=== PATIENT | male | born 1955 | race Caucasian/White ===

== ENCOUNTER 2016-05-04 11:23 | Inpatient (IN) | payer MEDICAID ==
[~2016-05-04] VITALS: Ht 170.2 cm; Wt 64.4 kg
[~2016-05-04 11:23] MED LIST: ACET650T10 GT; FAMO20TA8 GT; FERR300L GT; GLUC1VIA IM; HYDR-4076 GT; INSU100V10 SQ; LEVE500T6 GT; LEVO25TA9 GT; PHEN100O4 GT; PROP40TA7 GT; VITA1TAB20 GT
[2016-05-04] MEDS ORDERED: LEVOFLOXACIN 750 MG /D5W 150ML 150 ML IV ONE ×2 (11:27→11:30)
[2016-05-04] MEDS ORDERED: IV NS 0.9% 2,000 ML ONE (11:27)
[2016-05-04] MEDS ORDERED: IV SET PRIMARY PUMP SET 1 EA INFUS.SET MC ONE (11:27)
[2016-05-04] MEDS ORDERED: VANCOMYCIN 1 GM in IV D5W 250 ML IV ONE (11:30)
[2016-05-04] MEDS ORDERED: ACETAMINOPHEN 650 MG/SUPP.RECT RC ONE ×2 (11:30→11:41)
[2016-05-04] MEDS ORDERED: IV NS 0.9% 1,000 ML BAG IV ONE (11:30)
[2016-05-04] MEDS ORDERED: PIPERACILLIN /TAZOBACTAM 3.375 G in IV D5W 50 ML IV ONE (11:30)
[2016-05-04 11:38] VITALS: BP 99/63
[2016-05-04] MEDS ORDERED: OMEP40CA37 GT (11:42)
[2016-05-04] MEDS ORDERED: HYDR-552 GT (11:42)
[2016-05-04] MEDS ORDERED: FOLI0.8T2 GT (11:42)
[2016-05-04] MEDS ORDERED: ONDA4TAB5 GT (11:42)
[2016-05-04] MEDS ORDERED: NUT.237L67 GT (11:43)
[2016-05-04 11:45] LABS: BASOPHILS # (AUTO) 0.9 /CMM (0.0-0.2); BASOPHILS % (AUTO) 4.5 % (0.0-2.0); DIFF TOTAL % 100 %; EOSINOPHILS # (AUTO) 0.2 /CMM (0.0-0.7); EOSINOPHILS % (AUTO) 1.1 % (0.0-6.0); HEMATOCRIT 28 % (39-51); HEMOGLOBIN 9.3 g/dL (13.5-17.5); LYMPHOCYTES # (AUTO) 1.8 /CMM (0.8-4.8); LYMPHOCYTES % (AUTO) 9.1 % (20.0-44.0); MEAN CORPUSCULAR HEMOGLOBIN 29 PG (26.0-33.0); MEAN CORPUSCULAR HGB CONC 33 g/dl (31.0-36.0); MEAN CORPUSCULAR VOLUME 87 fL (80-96); MONOCYTES # (AUTO) 1.7 /CMM (0.1-1.30); MONOCYTES % (AUTO) 8.7 % (2.0-12.0); NEUTROPHILS # (AUTO) 14.8 /CMM (1.8-8.9); NEUTROPHILS % (AUTO) 76.6 % (43.0-81.0); PLATELET COUNT (AUTO) 380 /CMM (150-450); RED BLOOD CELL COUNT(AUTO) 3.25 MIL/uL (4.5-6.0); WHITE BLOOD COUNT (AUTO) 19.4 K/uL (4.3-11.0)
[2016-05-04 11:57] LABS: ANION GAP 20 (5-14); CALCIUM, SERUM 11.9 mg/dL (8.5-10.1); CARBON DIOXIDE 24 mmol/L (21-32); CHLORIDE 105 mmol/L (98-107); CREATININE 3.8 mg/dL (0.6-1.3); GFR 16 mL/min (>60); GLUCOSE 177 mg/dL (74-106); POTASSIUM 4.9 mmol/L (3.5-5.1); SODIUM SERUM 144 mmol/L (136-145); UREA NITROGEN, BLOOD 78 mg/dL (7-18)
[2016-05-04 12:01] LABS: ALANINE AMINOTRANSFERASE 18 U/L (12-78); ALBUMIN 2.3 g/dL (3.4-5.0); ASPARTATE AMINOTRANSFERASE 17 U/L (15-37); BILIRUBIN,DIRECT 0.1 mg/dL (0.0-0.2); BILIRUBIN,TOTAL 0.4 mg/dL (0.2-1.0); INDIRECT BILIRUBIN 0.3 mg/dL (0.0-1.1); TOTAL PROTEIN, SERUM 8.1 g/dL (6.4-8.2)
[2016-05-04 12:01] LABS: ADD UA MICROSCOPIC YES; KETONES,URINE Negative (NEGATIVE); LEUKOCYTE ESTERASE ,URINE Small (NEGATIVE)
[2016-05-04 12:03] LABS: TROPONIN I < 0.017 ng/mL (0.00-0.056)
[2016-05-04 12:04] LABS: INR 1.26 (0.87-1.13); PROTHROMBIN TIME 13.2 SECS (9.5-12.7)
[2016-05-04 12:05] LABS: ADD URINE CULTURE NO; RBC,URINE 0-2 /HPF (0-2)
[2016-05-04 12:13] LABS: LACTIC ACID 2.8 mmol/L (0.4-2.0)
[2016-05-04 12:38] LABS: *LACTIC ACID REFLEX FLAG YES
[2016-05-04 12:40] LABS: EOSINOPHILS % (MANUAL) 1 % (0-4); LYMPHOCYTES % (MANUAL) 17 % (16-48)
[2016-05-04 12:41] LABS: ANISOCYTOSIS 1+; BASOPHILS % (MANUAL) 0 % (0.0-2.0); PLATELET ESTIMATE ADEQUATE
[2016-05-04 14:55] VITALS: BP 126/68
[2016-05-04 16:00] VITALS: BP 126/68
[2016-05-04] MEDS ORDERED: DEXTROSE 50%-WATER 50 ML DISP.SYRIN IV PRN (17:00)
[2016-05-04] MEDS: BLOOD SUGAR DIAGNOSTIC 1 EACH STRIP IN SCH (17:04)
[2016-05-04] MEDS ORDERED: FEE PK DOSING 1 MIN EA MC ONE (17:23)
[2016-05-04] MEDS ORDERED: FIBERSOURCE HN 1,000 ML BOTTLE GT PRN (17:30)
[2016-05-04] MEDS: GLYTROL 1,000 ML BAG GT PRN (17:42)
[2016-05-04 20:00] VITALS: BP 113/72
[2016-05-04] MEDS ORDERED: NEPRO VAN 237 ML CAN GT SCH (20:00)
[2016-05-04] MEDS: LEVETIRACETAM SOL (5 ML) 100 MG/ML UDC GT SCH (20:06)
[2016-05-04] MEDS: PHENYTOIN SUSP UDC 100 MG/4 ML UDC GT SCH (20:06)
[2016-05-04] MEDS: FAMOTIDINE (20 MG) 20 MG TABLET GT SCH (20:08)
[2016-05-04] MEDS: PROPRANOLOL HCL 40 MG TABLET GT SCH (20:08)
[2016-05-04] MEDS: HYDROCODONE/APAP 5/325MG 1 EACH TABLET GT PRN (20:09)
[2016-05-04] MEDS ORDERED: ONDANSETRON 4 MG TAB.RAPDIS GT PRN (20:30)
[2016-05-04] MEDS ORDERED: PIPERACILLIN /TAZOBACTAM 2.25 G in IV D5W 50 ML IV SCH (21:00)
[2016-05-04] MEDS: ACETAMINOPHEN 650 MG/20.3 ML UDC GT PRN (21:36)
[2016-05-04] MEDS: INSULIN DETEMIR 100 UNIT/ML CARTRIDGE SQ SCH (21:44)
[2016-05-04] MEDS ORDERED: SECONDARY IV SET 1 EA INFUS.SET MC ONE (23:42)
[2016-05-04] MEDS: METRONIDAZOLE 500MG/ NS 100ML 500 MG in PREMIX 1 EA IV SCH (23:47)
[2016-05-04] MEDS: MEROPENEM 500 MG in IV NS 0.9% 50 ML IV SCH (23:47)
[2016-05-05] VITALS: BP 109/61
[2016-05-05] MEDS ORDERED: IV NS 0.9% 250 ML IV ONE (03:30)
[2016-05-05 04:00] VITALS: BP 119/73
[2016-05-05] MEDS: METRONIDAZOLE 500MG/ NS 100ML 500 MG in PREMIX 1 EA IV SCH ×3 (04:41→22:04)
[2016-05-05] MEDS: PROPRANOLOL HCL 40 MG TABLET GT SCH ×3 (04:51→22:05)
[2016-05-05] MEDS: BLOOD SUGAR DIAGNOSTIC 1 EACH STRIP IN SCH ×5 (06:15→23:38)
[2016-05-05 07:19] LABS: DIFF TOTAL % 100 %; EOSINOPHILS # (AUTO) 0.3 /CMM (0.0-0.7); HEMATOCRIT 24 % (39-51); HEMOGLOBIN 8.1 g/dL (13.5-17.5); LYMPHOCYTES # (AUTO) 1.7 /CMM (0.8-4.8); LYMPHOCYTES % (AUTO) 11.7 % (20.0-44.0); MEAN CORPUSCULAR HEMOGLOBIN 29 PG (26.0-33.0); MEAN CORPUSCULAR HGB CONC 33 g/dl (31.0-36.0); MEAN CORPUSCULAR VOLUME 87 fL (80-96); MONOCYTES # (AUTO) 1.5 /CMM (0.1-1.30); MONOCYTES % (AUTO) 9.8 % (2.0-12.0); NEUTROPHILS # (AUTO) 11.3 /CMM (1.8-8.9); NEUTROPHILS % (AUTO) 76.5 % (43.0-81.0); PLATELET COUNT (AUTO) 294 /CMM (150-450); RED BLOOD CELL COUNT(AUTO) 2.78 MIL/uL (4.5-6.0); WHITE BLOOD COUNT (AUTO) 14.8 K/uL (4.3-11.0)
[2016-05-05 07:46] LABS: CALCIUM, SERUM 11.3 mg/dL (8.5-10.1); CREATININE 4.4 mg/dL (0.6-1.3); POTASSIUM 4.4 mmol/L (3.5-5.1)
[2016-05-05 08:00] VITALS: BP 161/87
[2016-05-05] MEDS: PHENYTOIN SUSP UDC 100 MG/4 ML UDC GT SCH (08:56)
[2016-05-05] MEDS: PANTOPRAZOLE 40 MG/PACK PACK GT SCH (08:56)
[2016-05-05] MEDS: LEVOTHYROXINE SODIUM 25 MCG TABLET GT SCH (08:56)
[2016-05-05] MEDS: VIT B CMPLX 3/FA/VIT C/BIOTIN 1 TAB TABLET GT SCH (08:56)
[2016-05-05] MEDS: FAMOTIDINE (20 MG) 20 MG TABLET GT SCH (08:56)
[2016-05-05] MEDS: LEVETIRACETAM SOL (5 ML) 100 MG/ML UDC GT SCH ×2 (08:56→22:05)
[2016-05-05] MEDS: MEROPENEM 500 MG in IV NS 0.9% 50 ML IV SCH ×2 (11:28→23:37)
[2016-05-05 14:00] VITALS: BP 98/60
[2016-05-05] MEDS ORDERED: IV NS 0.9% 250 ML BAG IV ONE (15:00)
[2016-05-05] MEDS ORDERED: SECONDARY IV SET 1 EA INFUS.SET MC ONE (15:23)
[2016-05-05] MEDS: HYDROCODONE/APAP 5/325MG 1 EACH TABLET GT PRN (15:32)
[2016-05-05 16:00] VITALS: BP 98/58
[2016-05-05] MEDS ORDERED: IV NS 0.9% 1,000 ML BAG IV ONE (17:00)
[2016-05-05 20:00] VITALS: BP 103/55
[2016-05-05] MEDS: MUPIROCIN OINT 2% 22 GM TUBE SCH (22:04)
[2016-05-05] MEDS: INSULIN DETEMIR 100 UNIT/ML CARTRIDGE SQ SCH (22:06)
[2016-05-05] MEDS: VANCOMYCIN 1 GM in IV D5W 250 ML IV SCH (23:37)
[2016-05-06] VITALS (11 sets, daily range): BP systolic 104–128; BP diastolic 63–73
[2016-05-06] MEDS ORDERED: SECONDARY IV SET 1 EA INFUS.SET MC ONE (01:14)
[2016-05-06] MEDS: HYDROCODONE/APAP 5/325MG 1 EACH TABLET GT PRN (04:05)
[2016-05-06] MEDS: PROPRANOLOL HCL 40 MG TABLET GT SCH ×3 (05:19→21:31)
[2016-05-06] MEDS: METRONIDAZOLE 500MG/ NS 100ML 500 MG in PREMIX 1 EA IV SCH ×3 (05:19→21:30)
[2016-05-06] MEDS: BLOOD SUGAR DIAGNOSTIC 1 EACH STRIP IN SCH ×4 (05:20→23:21)
[2016-05-06] MEDS: GLYTROL 1,000 ML BAG GT PRN (05:20)
[2016-05-06 07:44] LABS: CALCIUM, SERUM 10.9 mg/dL (8.5-10.1); CREATININE 4.6 mg/dL (0.6-1.3); PHOSPHORUS 4.7 mg/dL (2.5-4.9); POTASSIUM 3.7 mmol/L (3.5-5.1)
[2016-05-06 07:54] LABS: BASOPHILS % (AUTO) 0.2 % (0.0-2.0); DIFF TOTAL % 100 %; EOSINOPHILS # (AUTO) 0.3 /CMM (0.0-0.7); EOSINOPHILS % (AUTO) 2.8 % (0.0-6.0); HEMATOCRIT 22 % (39-51); HEMOGLOBIN 7.4 g/dL (13.5-17.5); LYMPHOCYTES # (AUTO) 1.1 /CMM (0.8-4.8); LYMPHOCYTES % (AUTO) 9.7 % (20.0-44.0); MEAN CORPUSCULAR HEMOGLOBIN 29 PG (26.0-33.0); MEAN CORPUSCULAR HGB CONC 33 g/dl (31.0-36.0); MEAN CORPUSCULAR VOLUME 87 fL (80-96); MONOCYTES # (AUTO) 1.1 /CMM (0.1-1.30); MONOCYTES % (AUTO) 9.4 % (2.0-12.0); NEUTROPHILS % (AUTO) 77.9 % (43.0-81.0); PLATELET COUNT (AUTO) 257 /CMM (150-450); RED BLOOD CELL COUNT(AUTO) 2.57 MIL/uL (4.5-6.0); WHITE BLOOD COUNT (AUTO) 11.6 K/uL (4.3-11.0)
[2016-05-06] MEDS: PHENYTOIN SUSP UDC 100 MG/4 ML UDC GT SCH ×3 (09:34→21:30)
[2016-05-06] MEDS: LEVETIRACETAM SOL (5 ML) 100 MG/ML UDC GT SCH ×2 (09:34→21:30)
[2016-05-06] MEDS: LEVOTHYROXINE SODIUM 25 MCG TABLET GT SCH (09:35)
[2016-05-06] MEDS: PANTOPRAZOLE 40 MG/PACK PACK GT SCH (09:35)
[2016-05-06] MEDS: FAMOTIDINE (20 MG) 20 MG TABLET GT SCH (09:35)
[2016-05-06] MEDS: VIT B CMPLX 3/FA/VIT C/BIOTIN 1 TAB TABLET GT SCH (09:35)
[2016-05-06] MEDS: MUPIROCIN OINT 2% 22 GM TUBE SCH ×2 (09:35→21:31)
[2016-05-06] MEDS: MEROPENEM 500 MG in IV NS 0.9% 50 ML IV SCH ×2 (12:29→23:22)
[2016-05-06] MEDS ORDERED: IV NS 0.9% 250 ML IV ONE (20:31)
[2016-05-06] MEDS ORDERED: BLOOD IV SET 1 EA INFUS.SET MC ONE (20:31)
[2016-05-06] MEDS: INSULIN DETEMIR 100 UNIT/ML CARTRIDGE SQ SCH (22:00)
[2016-05-07] VITALS (9 sets, daily range): BP systolic 112–146; BP diastolic 65–85
[2016-05-07] MEDS ORDERED: IV NS 0.9% 250 ML IV ONE (02:46)
[2016-05-07] MEDS: METRONIDAZOLE 500MG/ NS 100ML 500 MG in PREMIX 1 EA IV SCH (04:25)
[2016-05-07] MEDS: PHENYTOIN SUSP UDC 100 MG/4 ML UDC GT SCH ×3 (04:25→20:09)
[2016-05-07] MEDS: PROPRANOLOL HCL 40 MG TABLET GT SCH ×3 (04:27→20:10)
[2016-05-07] MEDS: BLOOD SUGAR DIAGNOSTIC 1 EACH STRIP IN SCH ×4 (05:09→23:19)
[2016-05-07 07:32] LABS: VIT D, 25-HYDROXY 15.2 ng/mL (30.0-100.0)
[2016-05-07 07:32] LABS: BASOPHILS % (AUTO) 0.2 % (0.0-2.0); DIFF TOTAL % 100 %; EOSINOPHILS # (AUTO) 0.4 /CMM (0.0-0.7); EOSINOPHILS % (AUTO) 4.1 % (0.0-6.0); HEMATOCRIT 32 % (39-51); HEMOGLOBIN 10.5 g/dL (13.5-17.5); LYMPHOCYTES # (AUTO) 1.2 /CMM (0.8-4.8); LYMPHOCYTES % (AUTO) 11.2 % (20.0-44.0); MEAN CORPUSCULAR HEMOGLOBIN 29 PG (26.0-33.0); MEAN CORPUSCULAR HGB CONC 33 g/dl (31.0-36.0); MEAN CORPUSCULAR VOLUME 89 fL (80-96); MONOCYTES # (AUTO) 1.2 /CMM (0.1-1.30); MONOCYTES % (AUTO) 11.3 % (2.0-12.0); NEUTROPHILS # (AUTO) 7.8 /CMM (1.8-8.9); NEUTROPHILS % (AUTO) 73.2 % (43.0-81.0); PLATELET COUNT (AUTO) 274 /CMM (150-450); RED BLOOD CELL COUNT(AUTO) 3.58 MIL/uL (4.5-6.0); WHITE BLOOD COUNT (AUTO) 10.7 K/uL (4.3-11.0)
[2016-05-07 07:39] LABS: CALCIUM, SERUM 11.1 mg/dL (8.5-10.1); CREATININE 4.6 mg/dL (0.6-1.3); POTASSIUM 3.9 mmol/L (3.5-5.1)
[2016-05-07 08:41] LABS: PHOSPHORUS 6.1 mg/dL (2.5-4.9)
[2016-05-07] MEDS: FAMOTIDINE (20 MG) 20 MG TABLET GT SCH (08:59)
[2016-05-07] MEDS: PANTOPRAZOLE 40 MG/PACK PACK GT SCH (08:59)
[2016-05-07] MEDS: LEVOTHYROXINE SODIUM 25 MCG TABLET GT SCH (08:59)
[2016-05-07] MEDS: LEVETIRACETAM SOL (5 ML) 100 MG/ML UDC GT SCH ×2 (08:59→20:09)
[2016-05-07] MEDS: VIT B CMPLX 3/FA/VIT C/BIOTIN 1 TAB TABLET GT SCH (08:59)
[2016-05-07] MEDS: MUPIROCIN OINT 2% 22 GM TUBE SCH ×2 (09:02→20:11)
[2016-05-07 10:17] LABS: PTH, INTACT 6 pg/mL (15-65)
[2016-05-07] MEDS: MEROPENEM 500 MG in IV NS 0.9% 50 ML IV SCH ×2 (11:00→23:24)
[2016-05-07] MEDS: VANCOMYCIN 1 GM in IV D5W 250 ML IV SCH (11:21)
[2016-05-07] MEDS: METRONIDAZOLE 500 MG TABLET GT SCH ×2 (13:11→20:09)
[2016-05-07] MEDS ORDERED: PEG 3350/NA SULF,BICARB,CL/KCL 4,000 ML BOTTLE PO ONE (14:00)
[2016-05-07] MEDS: METOCLOPRAMIDE HCL 10 MG/2 ML VIAL IV SCH ×2 (14:24→20:09)
[2016-05-07 15:46] LABS: IRON, SERUM 51 ug/dl (50-175); PERCENT SATURATION 35 % (14-33); TOTAL IRON BINDING CAPACITY 144 ug/dl (250-450)
[2016-05-07] MEDS ORDERED: IV D5/0.45 NACL 1,000 ML IV PRN (16:56)
[2016-05-07] MEDS ORDERED: PAMIDRONATE 60 MG in IV NS 0.9% 500 ML IV ONE (17:30)
[2016-05-07] MEDS ORDERED: SECONDARY IV SET 1 EA INFUS.SET MC ONE (18:35)
[2016-05-07] MEDS: INSULIN DETEMIR 100 UNIT/ML CARTRIDGE SQ SCH (22:00)
[2016-05-08] VITALS (7 sets, daily range): BP systolic 103–149; BP diastolic 55–98
[2016-05-08] MEDS: METOCLOPRAMIDE HCL 10 MG/2 ML VIAL IV SCH ×4 (01:21→22:03)
[2016-05-08] MEDS: METRONIDAZOLE 500 MG TABLET GT SCH ×3 (05:05→22:04)
[2016-05-08] MEDS: PHENYTOIN SUSP UDC 100 MG/4 ML UDC GT SCH ×3 (05:05→22:04)
[2016-05-08] MEDS: BLOOD SUGAR DIAGNOSTIC 1 EACH STRIP IN SCH ×3 (05:06→18:17)
[2016-05-08] MEDS: PROPRANOLOL HCL 40 MG TABLET GT SCH ×3 (05:06→22:02)
[2016-05-08 07:50] LABS: BASOPHILS % (AUTO) 0.1 % (0.0-2.0); DIFF TOTAL % 100 %; EOSINOPHILS # (AUTO) 0.4 /CMM (0.0-0.7); EOSINOPHILS % (AUTO) 3.8 % (0.0-6.0); HEMATOCRIT 27 % (39-51); HEMOGLOBIN 8.8 g/dL (13.5-17.5); LYMPHOCYTES # (AUTO) 1.1 /CMM (0.8-4.8); LYMPHOCYTES % (AUTO) 9.8 % (20.0-44.0); MEAN CORPUSCULAR HEMOGLOBIN 29 PG (26.0-33.0); MEAN CORPUSCULAR HGB CONC 33 g/dl (31.0-36.0); MEAN CORPUSCULAR VOLUME 89 fL (80-96); MONOCYTES # (AUTO) 1.4 /CMM (0.1-1.30); MONOCYTES % (AUTO) 12.3 % (2.0-12.0); NEUTROPHILS # (AUTO) 8.4 /CMM (1.8-8.9); PLATELET COUNT (AUTO) 239 /CMM (150-450); WHITE BLOOD COUNT (AUTO) 11.4 K/uL (4.3-11.0)
[2016-05-08 07:55] LABS: CALCIUM, SERUM 10.2 mg/dL (8.5-10.1); CREATININE 4.1 mg/dL (0.6-1.3)
[2016-05-08] MEDS: VIT B CMPLX 3/FA/VIT C/BIOTIN 1 TAB TABLET GT SCH (09:23)
[2016-05-08] MEDS: LEVOTHYROXINE SODIUM 25 MCG TABLET GT SCH (09:23)
[2016-05-08] MEDS: LEVETIRACETAM SOL (5 ML) 100 MG/ML UDC GT SCH ×2 (09:23→22:04)
[2016-05-08] MEDS: PANTOPRAZOLE 40 MG/PACK PACK GT SCH (09:23)
[2016-05-08] MEDS: FAMOTIDINE (20 MG) 20 MG TABLET GT SCH (09:23)
[2016-05-08] MEDS: MUPIROCIN OINT 2% 22 GM TUBE SCH ×2 (09:24→22:40)
[2016-05-08 11:15] LABS: HEPATITIS C VIRUS AB <0.1 s/co ratio (0.0-0.9)
[2016-05-08] MEDS: MEROPENEM 500 MG in IV NS 0.9% 50 ML IV SCH ×2 (11:32→22:01)
[2016-05-08] MEDS: HYDROGEL DRESSING 90 GM TUBE TP SCH (11:32)
[2016-05-08] MEDS: ACETAMINOPHEN 650 MG/20.3 ML UDC GT PRN (13:48)
[2016-05-08] MEDS: INSULIN DETEMIR 100 UNIT/ML CARTRIDGE SQ SCH (22:00)
[2016-05-08] MEDS: VANCOMYCIN 1 GM in IV D5W 250 ML IV SCH (23:40)
[2016-05-09] VITALS: BP 150/73
[2016-05-09 04:01] VITALS: BP 124/63
[2016-05-09] MEDS: BLOOD SUGAR DIAGNOSTIC 1 EACH STRIP IN SCH ×3 (06:00→16:42)
[2016-05-09] MEDS: PHENYTOIN SUSP UDC 100 MG/4 ML UDC GT SCH ×3 (06:08→21:47)
[2016-05-09] MEDS: METRONIDAZOLE 500 MG TABLET GT SCH ×2 (06:08→13:00)
[2016-05-09] MEDS: PROPRANOLOL HCL 40 MG TABLET GT SCH ×3 (06:09→21:48)
[2016-05-09] MEDS: METOCLOPRAMIDE HCL 10 MG/2 ML VIAL IV SCH ×3 (07:30→20:25)
[2016-05-09 08:00] LABS: BASOPHILS % (AUTO) 0.2 % (0.0-2.0); DIFF TOTAL % 100 %; EOSINOPHILS # (AUTO) 0.3 /CMM (0.0-0.7); HEMATOCRIT 32 % (39-51); HEMOGLOBIN 10.8 g/dL (13.5-17.5); LYMPHOCYTES # (AUTO) 1.2 /CMM (0.8-4.8); LYMPHOCYTES % (AUTO) 8.9 % (20.0-44.0); MEAN CORPUSCULAR HEMOGLOBIN 30 PG (26.0-33.0); MEAN CORPUSCULAR HGB CONC 34 g/dl (31.0-36.0); MEAN CORPUSCULAR VOLUME 88 fL (80-96); MONOCYTES # (AUTO) 2.1 /CMM (0.1-1.30); MONOCYTES % (AUTO) 15.5 % (2.0-12.0); NEUTROPHILS % (AUTO) 73.4 % (43.0-81.0); PLATELET COUNT (AUTO) 239 /CMM (150-450); RED BLOOD CELL COUNT(AUTO) 3.64 MIL/uL (4.5-6.0); WHITE BLOOD COUNT (AUTO) 13.6 K/uL (4.3-11.0)
[2016-05-09 08:09] LABS: CALCIUM, SERUM 10.2 mg/dL (8.5-10.1); CREATININE 4.2 mg/dL (0.6-1.3); PHOSPHORUS 4.4 mg/dL (2.5-4.9); POTASSIUM 4.4 mmol/L (3.5-5.1)
[2016-05-09] MEDS: HYDROGEL DRESSING 90 GM TUBE TP SCH (09:00)
[2016-05-09] MEDS: VIT B CMPLX 3/FA/VIT C/BIOTIN 1 TAB TABLET GT SCH (09:00)
[2016-05-09] MEDS: LEVOTHYROXINE SODIUM 25 MCG TABLET GT SCH (09:00)
[2016-05-09] MEDS: PANTOPRAZOLE 40 MG/PACK PACK GT SCH (09:00)
[2016-05-09] MEDS: FAMOTIDINE (20 MG) 20 MG TABLET GT SCH (09:00)
[2016-05-09] MEDS: LEVETIRACETAM SOL (5 ML) 100 MG/ML UDC GT SCH ×2 (09:00→21:47)
[2016-05-09] MEDS: MUPIROCIN OINT 2% 22 GM TUBE SCH ×2 (09:00→21:47)
[2016-05-09] MEDS: MEROPENEM 500 MG in IV NS 0.9% 50 ML IV SCH ×2 (10:59→22:48)
[2016-05-09 18:12] VITALS: BP 107/66
[2016-05-09] MEDS: MICAFUNGIN SODIUM 100 MG in IV NS 0.9% 100 ML IV SCH (19:33)
[2016-05-09 20:00] VITALS: BP 112/62
[2016-05-09] MEDS: INSULIN DETEMIR 100 UNIT/ML CARTRIDGE SQ SCH (21:58)
[2016-05-10] VITALS (9 sets, daily range): BP systolic 116–152; BP diastolic 66–88
[2016-05-10] MEDS: METOCLOPRAMIDE HCL 10 MG/2 ML VIAL IV SCH ×4 (01:46→19:43)
[2016-05-10] MEDS: PHENYTOIN SUSP UDC 100 MG/4 ML UDC GT SCH ×3 (05:33→21:33)
[2016-05-10] MEDS: PROPRANOLOL HCL 40 MG TABLET GT SCH ×3 (05:34→21:33)
[2016-05-10] MEDS: BLOOD SUGAR DIAGNOSTIC 1 EACH STRIP IN SCH ×5 (05:35→23:53)
[2016-05-10 06:08] LABS: BASOPHILS % (AUTO) 0.2 % (0.0-2.0); DIFF TOTAL % 100 %; EOSINOPHILS # (AUTO) 0.3 /CMM (0.0-0.7); HEMATOCRIT 34 % (39-51); HEMOGLOBIN 11.4 g/dL (13.5-17.5); LYMPHOCYTES # (AUTO) 1.3 /CMM (0.8-4.8); LYMPHOCYTES % (AUTO) 12.2 % (20.0-44.0); MEAN CORPUSCULAR HEMOGLOBIN 29 PG (26.0-33.0); MEAN CORPUSCULAR HGB CONC 33 g/dl (31.0-36.0); MEAN CORPUSCULAR VOLUME 89 fL (80-96); MONOCYTES # (AUTO) 1.2 /CMM (0.1-1.30); MONOCYTES % (AUTO) 11.3 % (2.0-12.0); NEUTROPHILS # (AUTO) 7.9 /CMM (1.8-8.9); NEUTROPHILS % (AUTO) 73.3 % (43.0-81.0); PLATELET COUNT (AUTO) 243 /CMM (150-450); RED BLOOD CELL COUNT(AUTO) 3.87 MIL/uL (4.5-6.0); WHITE BLOOD COUNT (AUTO) 10.8 K/uL (4.3-11.0)
[2016-05-10 06:19] LABS: ALBUMIN 2.2 g/dL (3.4-5.0); BILIRUBIN,TOTAL 0.6 mg/dL (0.2-1.0); CALCIUM, SERUM 10.2 mg/dL (8.5-10.1); CREATININE 4.3 mg/dL (0.6-1.3); PHOSPHORUS 4.6 mg/dL (2.5-4.9); POTASSIUM 4.1 mmol/L (3.5-5.1); TOTAL PROTEIN, SERUM 7.5 g/dL (6.4-8.2)
[2016-05-10] MEDS: VIT B CMPLX 3/FA/VIT C/BIOTIN 1 TAB TABLET GT SCH (09:03)
[2016-05-10] MEDS: FAMOTIDINE (20 MG) 20 MG TABLET GT SCH (09:03)
[2016-05-10] MEDS: PANTOPRAZOLE 40 MG/PACK PACK GT SCH (09:03)
[2016-05-10] MEDS: LEVOTHYROXINE SODIUM 25 MCG TABLET GT SCH (09:03)
[2016-05-10] MEDS: LEVETIRACETAM SOL (5 ML) 100 MG/ML UDC GT SCH ×2 (09:03→21:33)
[2016-05-10] MEDS: MUPIROCIN OINT 2% 22 GM TUBE SCH ×2 (09:04→21:39)
[2016-05-10] MEDS: VANCOMYCIN 1 GM in IV D5W 250 ML IV SCH (11:00)
[2016-05-10] MEDS: MEROPENEM 500 MG in IV NS 0.9% 50 ML IV SCH ×2 (11:20→22:41)
[2016-05-10] MEDS: HYDROGEL DRESSING 90 GM TUBE TP SCH (11:21)
[2016-05-10] MEDS: INSULIN REGULAR, HUMAN 100 UNIT/ML 3 ML VIAL SQ PRN ×3 (12:18→23:55)
[2016-05-10] MEDS: Sodium Bicarbonate 50 MEQ in IV D5/0.45 NACL 1,000 ML IV PRN ×2 (13:49→22:39)
[2016-05-10] MEDS: MICAFUNGIN SODIUM 100 MG in IV NS 0.9% 100 ML IV SCH (17:07)
[2016-05-10] MEDS: GLYTROL 1,000 ML BAG GT PRN (17:21)
[2016-05-10] MEDS: INSULIN DETEMIR 100 UNIT/ML CARTRIDGE SQ SCH (21:39)
[2016-05-10] MEDS ORDERED: SODIUM BICARBONATE SYR 50 MEQ/50 ML DISP.SYRIN ONE (22:17)
[2016-05-10] MEDS ORDERED: IV D5/0.45 NACL 1,000 ML IV ONE (22:18)
[2016-05-10] MEDS ORDERED: SECONDARY IV SET 1 EA INFUS.SET MC ONE (22:42)
[2016-05-11] VITALS: BP 122/68
[2016-05-11] MEDS: METOCLOPRAMIDE HCL 10 MG/2 ML VIAL IV SCH ×4 (02:21→21:07)
[2016-05-11 04:00] VITALS: BP 131/59
[2016-05-11] MEDS: BLOOD SUGAR DIAGNOSTIC 1 EACH STRIP IN SCH ×4 (05:39→23:22)
[2016-05-11] MEDS: INSULIN REGULAR, HUMAN 100 UNIT/ML 3 ML VIAL SQ PRN ×2 (05:47→23:23)
[2016-05-11] MEDS: PROPRANOLOL HCL 40 MG TABLET GT SCH ×3 (05:48→21:08)
[2016-05-11] MEDS: PHENYTOIN SUSP UDC 100 MG/4 ML UDC GT SCH ×3 (05:48→21:07)
[2016-05-11 07:07] LABS: BASOPHILS % (AUTO) 0.1 % (0.0-2.0); DIFF TOTAL % 100 %; EOSINOPHILS # (AUTO) 0.4 /CMM (0.0-0.7); EOSINOPHILS % (AUTO) 3.3 % (0.0-6.0); HEMATOCRIT 29 % (39-51); HEMOGLOBIN 9.7 g/dL (13.5-17.5); LYMPHOCYTES # (AUTO) 1.4 /CMM (0.8-4.8); LYMPHOCYTES % (AUTO) 13.4 % (20.0-44.0); MEAN CORPUSCULAR HEMOGLOBIN 30 PG (26.0-33.0); MEAN CORPUSCULAR HGB CONC 34 g/dl (31.0-36.0); MEAN CORPUSCULAR VOLUME 88 fL (80-96); MONOCYTES # (AUTO) 1.3 /CMM (0.1-1.30); MONOCYTES % (AUTO) 11.8 % (2.0-12.0); NEUTROPHILS # (AUTO) 7.6 /CMM (1.8-8.9); NEUTROPHILS % (AUTO) 71.4 % (43.0-81.0); PLATELET COUNT (AUTO) 241 /CMM (150-450); RED BLOOD CELL COUNT(AUTO) 3.29 MIL/uL (4.5-6.0); WHITE BLOOD COUNT (AUTO) 10.6 K/uL (4.3-11.0)
[2016-05-11 07:25] LABS: CREATININE 4.1 mg/dL (0.6-1.3); PHOSPHORUS 4.1 mg/dL (2.5-4.9); POTASSIUM 3.5 mmol/L (3.5-5.1)
[2016-05-11 08:00] VITALS: BP 129/81
[2016-05-11] MEDS: PANTOPRAZOLE 40 MG/PACK PACK GT SCH (08:28)
[2016-05-11] MEDS: LEVOTHYROXINE SODIUM 25 MCG TABLET GT SCH (08:28)
[2016-05-11] MEDS: VIT B CMPLX 3/FA/VIT C/BIOTIN 1 TAB TABLET GT SCH (08:28)
[2016-05-11] MEDS: LEVETIRACETAM SOL (5 ML) 100 MG/ML UDC GT SCH ×2 (08:28→21:08)
[2016-05-11] MEDS: FAMOTIDINE (20 MG) 20 MG TABLET GT SCH (08:28)
[2016-05-11] MEDS: MUPIROCIN OINT 2% 22 GM TUBE SCH ×2 (08:29→21:13)
[2016-05-11] MEDS: HYDROGEL DRESSING 90 GM TUBE TP SCH (08:29)
[2016-05-11] MEDS: Sodium Bicarbonate 50 MEQ in IV D5/0.45 NACL 1,000 ML IV PRN ×2 (09:08→19:59)
[2016-05-11] MEDS: MEROPENEM 500 MG in IV NS 0.9% 50 ML IV SCH ×2 (11:11→23:20)
[2016-05-11 12:00] VITALS: BP 123/75
[2016-05-11 16:00] VITALS: BP 123/59
[2016-05-11] MEDS: MICAFUNGIN SODIUM 100 MG in IV NS 0.9% 100 ML IV SCH (17:02)
[2016-05-11 20:00] VITALS: BP 149/75
[2016-05-11] MEDS: INSULIN DETEMIR 100 UNIT/ML CARTRIDGE SQ SCH (21:14)
[2016-05-12] VITALS: BP 138/75
[2016-05-12] MEDS: METOCLOPRAMIDE HCL 10 MG/2 ML VIAL IV SCH ×4 (00:32→18:32)
[2016-05-12 04:00] VITALS: BP 151/75
[2016-05-12] MEDS: BLOOD SUGAR DIAGNOSTIC 1 EACH STRIP IN SCH ×4 (05:04→23:52)
[2016-05-12] MEDS: PHENYTOIN SUSP UDC 100 MG/4 ML UDC GT SCH ×3 (05:04→20:38)
[2016-05-12] MEDS: PROPRANOLOL HCL 40 MG TABLET GT SCH ×3 (05:04→20:38)
[2016-05-12] MEDS: Sodium Bicarbonate 50 MEQ in IV D5/0.45 NACL 1,000 ML IV PRN ×2 (05:09→14:47)
[2016-05-12 07:00] LABS: CALCIUM, SERUM 8.3 mg/dL (8.5-10.1); CREATININE 3.7 mg/dL (0.6-1.3); POTASSIUM 3.5 mmol/L (3.5-5.1)
[2016-05-12] MEDS ORDERED: IV SET PRIMARY PUMP SET 1 EA INFUS.SET MC ONE (07:59)
[2016-05-12 08:00] VITALS: BP 134/74
[2016-05-12] MEDS: VIT B CMPLX 3/FA/VIT C/BIOTIN 1 TAB TABLET GT SCH (08:13)
[2016-05-12] MEDS: LEVETIRACETAM SOL (5 ML) 100 MG/ML UDC GT SCH ×2 (08:13→20:38)
[2016-05-12] MEDS: FAMOTIDINE (20 MG) 20 MG TABLET GT SCH (08:14)
[2016-05-12] MEDS: PANTOPRAZOLE 40 MG/PACK PACK GT SCH (08:14)
[2016-05-12] MEDS: HYDROGEL DRESSING 90 GM TUBE TP SCH (08:14)
[2016-05-12] MEDS: LEVOTHYROXINE SODIUM 25 MCG TABLET GT SCH (08:14)
[2016-05-12] MEDS: MUPIROCIN OINT 2% 22 GM TUBE SCH ×2 (08:14→20:39)
[2016-05-12] MEDS: MEROPENEM 500 MG in IV NS 0.9% 50 ML IV SCH ×2 (10:06→23:47)
[2016-05-12] MEDS: GLYTROL 1,000 ML BAG GT PRN (10:12)
[2016-05-12] MEDS ORDERED: SECONDARY IV SET 1 EA INFUS.SET MC ONE ×2 (11:52→16:37)
[2016-05-12] MEDS: VANCOMYCIN 0.75 GM in IV D5W 250 ML IV SCH ×2 (11:57→23:47)
[2016-05-12 12:00] VITALS: BP 126/71
[2016-05-12 16:00] VITALS: BP 138/78
[2016-05-12] MEDS: MICAFUNGIN SODIUM 100 MG in IV NS 0.9% 100 ML IV SCH (16:39)
[2016-05-12] MEDS ORDERED: IV D5W 1,000 ML IV PRN (17:10)
[2016-05-12 20:00] VITALS: BP 132/84
[2016-05-12] MEDS: INSULIN DETEMIR 100 UNIT/ML CARTRIDGE SQ SCH (23:54)
[2016-05-13] VITALS: BP 142/78
[2016-05-13] MEDS: METOCLOPRAMIDE HCL 10 MG/2 ML VIAL IV SCH ×4 (01:30→20:21)
[2016-05-13 04:00] VITALS: BP 131/70
[2016-05-13] MEDS: BLOOD SUGAR DIAGNOSTIC 1 EACH STRIP IN SCH ×4 (06:00→23:21)
[2016-05-13] MEDS: PHENYTOIN SUSP UDC 100 MG/4 ML UDC GT SCH ×3 (06:04→20:22)
[2016-05-13] MEDS: PROPRANOLOL HCL 40 MG TABLET GT SCH ×3 (06:04→20:23)
[2016-05-13 07:28] LABS: CALCIUM, SERUM 7.7 mg/dL (8.5-10.1); CREATININE 3.3 mg/dL (0.6-1.3); POTASSIUM 3.2 mmol/L (3.5-5.1)
[2016-05-13 08:00] VITALS: BP 134/78
[2016-05-13] MEDS: PANTOPRAZOLE 40 MG/PACK PACK GT SCH (08:41)
[2016-05-13] MEDS: LEVETIRACETAM SOL (5 ML) 100 MG/ML UDC GT SCH ×2 (08:41→20:22)
[2016-05-13] MEDS: LEVOTHYROXINE SODIUM 25 MCG TABLET GT SCH (08:42)
[2016-05-13] MEDS: VIT B CMPLX 3/FA/VIT C/BIOTIN 1 TAB TABLET GT SCH (08:43)
[2016-05-13] MEDS: FAMOTIDINE (20 MG) 20 MG TABLET GT SCH (08:43)
[2016-05-13] MEDS: HYDROGEL DRESSING 90 GM TUBE TP SCH (08:45)
[2016-05-13] MEDS: MUPIROCIN OINT 2% 22 GM TUBE SCH ×2 (08:45→20:25)
[2016-05-13] MEDS: MEROPENEM 500 MG in IV NS 0.9% 50 ML IV SCH ×2 (11:16→23:20)
[2016-05-13 12:00] VITALS: BP 134/78
[2016-05-13] MEDS: Potassium Chloride 40 MEQ in IV D5W 1,000 ML IV PRN (13:03)
[2016-05-13 16:00] VITALS: BP 126/81
[2016-05-13] MEDS: MICAFUNGIN SODIUM 100 MG in IV NS 0.9% 100 ML IV SCH (17:29)
[2016-05-13 20:00] VITALS: BP 145/78
[2016-05-13] MEDS: INSULIN DETEMIR 100 UNIT/ML CARTRIDGE SQ SCH (22:00)
[2016-05-13] MEDS ORDERED: SECONDARY IV SET 1 EA INFUS.SET MC ONE (23:20)
[2016-05-14] VITALS: BP 159/85
[2016-05-14] MEDS: METOCLOPRAMIDE HCL 10 MG/2 ML VIAL IV SCH ×4 (01:00→20:25)
[2016-05-14 04:00] VITALS: BP_SYST 147; BP_DIAS 67; BP_DIAS 93
[2016-05-14] MEDS: Potassium Chloride 40 MEQ in IV D5W 1,000 ML IV PRN (05:10)
[2016-05-14] MEDS: PHENYTOIN SUSP UDC 100 MG/4 ML UDC GT SCH ×3 (05:11→20:38)
[2016-05-14] MEDS: PROPRANOLOL HCL 40 MG TABLET GT SCH ×3 (05:12→20:38)
[2016-05-14] MEDS: BLOOD SUGAR DIAGNOSTIC 1 EACH STRIP IN SCH ×3 (05:37→17:08)
[2016-05-14 07:00] LABS: CALCIUM, SERUM 7.4 mg/dL (8.5-10.1); CREATININE 2.9 mg/dL (0.6-1.3); POTASSIUM 4.4 mmol/L (3.5-5.1)
[2016-05-14 08:00] VITALS: BP 125/83
[2016-05-14] MEDS: VIT B CMPLX 3/FA/VIT C/BIOTIN 1 TAB TABLET GT SCH (09:12)
[2016-05-14] MEDS: PANTOPRAZOLE 40 MG/PACK PACK GT SCH (09:12)
[2016-05-14] MEDS: FAMOTIDINE (20 MG) 20 MG TABLET GT SCH (09:13)
[2016-05-14] MEDS: LEVETIRACETAM SOL (5 ML) 100 MG/ML UDC GT SCH ×2 (09:13→20:38)
[2016-05-14] MEDS: LEVOTHYROXINE SODIUM 25 MCG TABLET GT SCH (09:13)
[2016-05-14] MEDS: Z GUARD REMEDY 2 OZ OINT TP PRN (09:13)
[2016-05-14] MEDS: HYDROGEL DRESSING 90 GM TUBE TP SCH (09:14)
[2016-05-14] MEDS: MUPIROCIN OINT 2% 22 GM TUBE SCH ×2 (09:15→20:39)
[2016-05-14 12:00] VITALS: BP 128/84
[2016-05-14 12:45] LABS: BASOPHILS # (AUTO) 0.1 /CMM (0.0-0.2); BASOPHILS % (AUTO) 0.8 % (0.0-2.0); DIFF TOTAL % 100 %; EOSINOPHILS # (AUTO) 0.4 /CMM (0.0-0.7); EOSINOPHILS % (AUTO) 3.1 % (0.0-6.0); HEMATOCRIT 28 % (39-51); HEMOGLOBIN 9.2 g/dL (13.5-17.5); LYMPHOCYTES # (AUTO) 1.6 /CMM (0.8-4.8); LYMPHOCYTES % (AUTO) 13.4 % (20.0-44.0); MEAN CORPUSCULAR HEMOGLOBIN 29 PG (26.0-33.0); MEAN CORPUSCULAR HGB CONC 33 g/dl (31.0-36.0); MEAN CORPUSCULAR VOLUME 87 fL (80-96); MONOCYTES # (AUTO) 1.2 /CMM (0.1-1.30); NEUTROPHILS # (AUTO) 8.7 /CMM (1.8-8.9); NEUTROPHILS % (AUTO) 72.7 % (43.0-81.0); PLATELET COUNT (AUTO) 305 /CMM (150-450); RED BLOOD CELL COUNT(AUTO) 3.15 MIL/uL (4.5-6.0); WHITE BLOOD COUNT (AUTO) 11.9 K/uL (4.3-11.0)
[2016-05-14 13:13] LABS: PHOSPHORUS 3.3 mg/dL (2.5-4.9)
[2016-05-14 16:00] VITALS: BP 126/74
[2016-05-14 20:00] VITALS: BP 153/90
[2016-05-14] MEDS: INSULIN DETEMIR 100 UNIT/ML CARTRIDGE SQ SCH (22:00)
[2016-05-15] VITALS (7 sets, daily range): BP systolic 110–154; BP diastolic 69–92
[2016-05-15] MEDS: BLOOD SUGAR DIAGNOSTIC 1 EACH STRIP IN SCH ×4 (00:41→16:53)
[2016-05-15] MEDS: METOCLOPRAMIDE HCL 10 MG/2 ML VIAL IV SCH ×4 (01:57→20:48)
[2016-05-15] MEDS: PHENYTOIN SUSP UDC 100 MG/4 ML UDC GT SCH ×3 (05:41→20:48)
[2016-05-15] MEDS: PROPRANOLOL HCL 40 MG TABLET GT SCH ×3 (05:42→20:49)
[2016-05-15] MEDS: Potassium Chloride 40 MEQ in IV D5W 1,000 ML IV PRN (06:17)
[2016-05-15] MEDS: VIT B CMPLX 3/FA/VIT C/BIOTIN 1 TAB TABLET GT SCH (08:24)
[2016-05-15] MEDS: LEVETIRACETAM SOL (5 ML) 100 MG/ML UDC GT SCH ×2 (08:24→20:48)
[2016-05-15] MEDS: PANTOPRAZOLE 40 MG/PACK PACK GT SCH (08:25)
[2016-05-15] MEDS: LEVOTHYROXINE SODIUM 25 MCG TABLET GT SCH (08:25)
[2016-05-15] MEDS: FAMOTIDINE (20 MG) 20 MG TABLET GT SCH (08:25)
[2016-05-15] MEDS: MUPIROCIN OINT 2% 22 GM TUBE SCH ×2 (08:25→20:47)
[2016-05-15] MEDS: HYDROGEL DRESSING 90 GM TUBE TP SCH (08:26)
[2016-05-15 08:55] LABS: BASOPHILS % (AUTO) 0.2 % (0.0-2.0); DIFF TOTAL % 100 %; EOSINOPHILS # (AUTO) 0.4 /CMM (0.0-0.7); EOSINOPHILS % (AUTO) 3.1 % (0.0-6.0); HEMATOCRIT 28 % (39-51); HEMOGLOBIN 9.5 g/dL (13.5-17.5); LYMPHOCYTES # (AUTO) 1.6 /CMM (0.8-4.8); LYMPHOCYTES % (AUTO) 11.8 % (20.0-44.0); MEAN CORPUSCULAR HEMOGLOBIN 29 PG (26.0-33.0); MEAN CORPUSCULAR HGB CONC 34 g/dl (31.0-36.0); MEAN CORPUSCULAR VOLUME 86 fL (80-96); MONOCYTES # (AUTO) 1.1 /CMM (0.1-1.30); MONOCYTES % (AUTO) 8.1 % (2.0-12.0); NEUTROPHILS # (AUTO) 10.3 /CMM (1.8-8.9); NEUTROPHILS % (AUTO) 76.8 % (43.0-81.0); PLATELET COUNT (AUTO) 355 /CMM (150-450); RED BLOOD CELL COUNT(AUTO) 3.27 MIL/uL (4.5-6.0); WHITE BLOOD COUNT (AUTO) 13.5 K/uL (4.3-11.0)
[2016-05-15] MEDS ORDERED: ROCURONIUM BROMIDE 50 MG/5 ML ONE (09:17)
[2016-05-15 09:37] LABS: CALCIUM, SERUM 7.4 mg/dL (8.5-10.1); CREATININE 2.7 mg/dL (0.6-1.3); PHOSPHORUS 3.2 mg/dL (2.5-4.9); POTASSIUM 4.9 mmol/L (3.5-5.1)
[2016-05-15] MEDS: GLYTROL 1,000 ML BAG GT PRN (10:28)
[2016-05-15] MEDS ORDERED: Magnesium 1GM/D5W 100ML PREMIX 1 G in PREMIX 1 EA IV SCH (15:00)
[2016-05-15] MEDS ORDERED: SECONDARY IV SET 1 EA INFUS.SET MC ONE (15:39)
[2016-05-15] MEDS: Magnesium 1GM/D5W 100ML PREMIX 100 ML IV SCH ×2 (16:31→17:00)
[2016-05-15] MEDS: INSULIN DETEMIR 100 UNIT/ML CARTRIDGE SQ SCH (23:06)
[2016-05-16] VITALS (7 sets, daily range): BP systolic 121–204; BP diastolic 84–106
[2016-05-16] MEDS: METOCLOPRAMIDE HCL 10 MG/2 ML VIAL IV SCH ×4 (01:16→21:18)
[2016-05-16] MEDS: PHENYTOIN SUSP UDC 100 MG/4 ML UDC GT SCH ×3 (05:43→21:18)
[2016-05-16] MEDS: PROPRANOLOL HCL 40 MG TABLET GT SCH ×3 (05:43→21:19)
[2016-05-16] MEDS: BLOOD SUGAR DIAGNOSTIC 1 EACH STRIP IN SCH ×5 (08:29→23:18)
[2016-05-16] MEDS: PANTOPRAZOLE 40 MG/PACK PACK GT SCH (08:31)
[2016-05-16] MEDS: LEVETIRACETAM SOL (5 ML) 100 MG/ML UDC GT SCH ×2 (08:31→21:19)
[2016-05-16] MEDS: VIT B CMPLX 3/FA/VIT C/BIOTIN 1 TAB TABLET GT SCH (08:31)
[2016-05-16] MEDS: LEVOTHYROXINE SODIUM 25 MCG TABLET GT SCH (08:31)
[2016-05-16] MEDS: FAMOTIDINE (20 MG) 20 MG TABLET GT SCH (08:31)
[2016-05-16] MEDS: MUPIROCIN OINT 2% 22 GM TUBE SCH ×2 (08:32→21:20)
[2016-05-16] MEDS: HYDROGEL DRESSING 90 GM TUBE TP SCH (08:33)
[2016-05-16] MEDS: IV D5/ 0.9% NACL 1,000 ML IV PRN (14:11)
[2016-05-16] MEDS: GLYTROL 1,000 ML BAG GT PRN (21:39)
[2016-05-16] MEDS ORDERED: DOXYCYCLINE 100 MG VIAL ONE (21:41)
[2016-05-16] MEDS ORDERED: SECONDARY IV SET 1 EA INFUS.SET MC ONE (21:46)
[2016-05-16] MEDS ORDERED: IV D5W 100 ML IV ONE (21:46)
[2016-05-16] MEDS: INSULIN DETEMIR 100 UNIT/ML CARTRIDGE SQ SCH (22:00)
[2016-05-16] MEDS: DOXYCYCLINE 100 MG in IV D5W 100 ML IV SCH (22:16)
[2016-05-17] VITALS: BP 148/84
[2016-05-17] MEDS: METOCLOPRAMIDE HCL 10 MG/2 ML VIAL IV SCH ×4 (02:15→20:17)
[2016-05-17] MEDS: PHENYTOIN SUSP UDC 100 MG/4 ML UDC GT SCH ×3 (05:59→20:17)
[2016-05-17] MEDS: PROPRANOLOL HCL 40 MG TABLET GT SCH ×3 (05:59→20:17)
[2016-05-17 06:00] VITALS: BP 145/89
[2016-05-17] MEDS: BLOOD SUGAR DIAGNOSTIC 1 EACH STRIP IN SCH ×3 (06:09→18:37)
[2016-05-17] MEDS: IV D5/ 0.9% NACL 1,000 ML IV PRN (06:14)
[2016-05-17 07:22] LABS: BASOPHILS # (AUTO) 0.1 /CMM (0.0-0.2); BASOPHILS % (AUTO) 0.4 % (0.0-2.0); DIFF TOTAL % 100 %; EOSINOPHILS # (AUTO) 0.3 /CMM (0.0-0.7); EOSINOPHILS % (AUTO) 2.6 % (0.0-6.0); HEMATOCRIT 26 % (39-51); HEMOGLOBIN 8.5 g/dL (13.5-17.5); LYMPHOCYTES # (AUTO) 1.4 /CMM (0.8-4.8); LYMPHOCYTES % (AUTO) 10.3 % (20.0-44.0); MEAN CORPUSCULAR HEMOGLOBIN 29 PG (26.0-33.0); MEAN CORPUSCULAR HGB CONC 33 g/dl (31.0-36.0); MEAN CORPUSCULAR VOLUME 86 fL (80-96); MONOCYTES # (AUTO) 1.4 /CMM (0.1-1.30); MONOCYTES % (AUTO) 10.6 % (2.0-12.0); NEUTROPHILS % (AUTO) 76.1 % (43.0-81.0); PLATELET COUNT (AUTO) 397 /CMM (150-450); RED BLOOD CELL COUNT(AUTO) 2.98 MIL/uL (4.5-6.0); WHITE BLOOD COUNT (AUTO) 13.2 K/uL (4.3-11.0)
[2016-05-17 07:37] LABS: CALCIUM, SERUM 7.4 mg/dL (8.5-10.1); CREATININE 2.4 mg/dL (0.6-1.3); PHOSPHORUS 3.3 mg/dL (2.5-4.9); POTASSIUM 4.2 mmol/L (3.5-5.1)
[2016-05-17 08:00] VITALS: BP 160/85
[2016-05-17] MEDS: LEVETIRACETAM SOL (5 ML) 100 MG/ML UDC GT SCH ×2 (08:14→20:17)
[2016-05-17] MEDS: VIT B CMPLX 3/FA/VIT C/BIOTIN 1 TAB TABLET GT SCH (08:15)
[2016-05-17] MEDS: PANTOPRAZOLE 40 MG/PACK PACK GT SCH (08:15)
[2016-05-17] MEDS: FAMOTIDINE (20 MG) 20 MG TABLET GT SCH (08:15)
[2016-05-17] MEDS: LEVOTHYROXINE SODIUM 25 MCG TABLET GT SCH (08:15)
[2016-05-17] MEDS: MUPIROCIN OINT 2% 22 GM TUBE SCH ×2 (08:17→20:18)
[2016-05-17] MEDS: Z GUARD REMEDY 2 OZ OINT TP PRN (08:19)
[2016-05-17] MEDS: HYDROGEL DRESSING 90 GM TUBE TP SCH (08:29)
[2016-05-17] MEDS: DOXYCYCLINE 100 MG in IV D5W 100 ML IV SCH ×2 (10:00→20:16)
[2016-05-17] MEDS ORDERED: SECONDARY IV SET 1 EA INFUS.SET MC ONE ×2 (10:10→15:08)
[2016-05-17 12:00] VITALS: BP 145/87
[2016-05-17 12:59] LABS: ABG BASE EXCESS -7.1 mmol/L; ABG HCO3 14.4 mmol/L; ABG PCO2 19.2 mmHg (35.0-45.0); ABG PH 7.492 (7.350-7.450); ABG PO2 142.7 mmHg (75.0-100.0); ABG TOTAL HEMOGLOBIN 10.5 G/dL (13.5-18.0); ALLEN TEST Pass; AaDO2 48.6 mmHg; O2Hb 96.6 % (94.0-97.0)
[2016-05-17] MEDS ORDERED: METOCLOPRAMIDE HCL 10 MG/2 ML VIAL IV SCH (13:00)
[2016-05-17] MEDS: Magnesium 1GM/D5W 100ML PREMIX 100 ML IV SCH ×2 (15:00→18:37)
[2016-05-17 16:26] VITALS: BP 145/82
[2016-05-17 20:00] VITALS: BP_SYST 148; BP_SYST 152; BP_DIAS 86; BP_DIAS 88
[2016-05-17] MEDS: INSULIN DETEMIR 100 UNIT/ML CARTRIDGE SQ SCH (22:00)
[2016-05-18] VITALS: BP_SYST 148; BP_SYST 152; BP_DIAS 86; BP_DIAS 88
[2016-05-18] MEDS: IV D5/ 0.9% NACL 1,000 ML IV PRN ×2 (02:02→17:11)
[2016-05-18] MEDS: BLOOD SUGAR DIAGNOSTIC 1 EACH STRIP IN SCH ×4 (02:04→17:49)
[2016-05-18] MEDS: METOCLOPRAMIDE HCL 10 MG/2 ML VIAL IV SCH ×4 (02:18→22:18)
[2016-05-18 04:00] VITALS: BP_SYST 135; BP_SYST 147; BP_DIAS 85; BP_DIAS 87
[2016-05-18] MEDS: PHENYTOIN SUSP UDC 100 MG/4 ML UDC GT SCH ×3 (07:00→22:18)
[2016-05-18] MEDS: PROPRANOLOL HCL 40 MG TABLET GT SCH ×3 (07:00→22:21)
[2016-05-18 08:00] VITALS: BP_SYST 150; BP_SYST 176; BP_DIAS 93
[2016-05-18 09:17] LABS: BASOPHILS % (AUTO) 0.2 % (0.0-2.0); DIFF TOTAL % 100 %; EOSINOPHILS # (AUTO) 0.2 /CMM (0.0-0.7); EOSINOPHILS % (AUTO) 1.5 % (0.0-6.0); HEMATOCRIT 24 % (39-51); HEMOGLOBIN 8.2 g/dL (13.5-17.5); LYMPHOCYTES # (AUTO) 1.4 /CMM (0.8-4.8); LYMPHOCYTES % (AUTO) 11.5 % (20.0-44.0); MEAN CORPUSCULAR HEMOGLOBIN 29 PG (26.0-33.0); MEAN CORPUSCULAR HGB CONC 34 g/dl (31.0-36.0); MEAN CORPUSCULAR VOLUME 86 fL (80-96); MONOCYTES # (AUTO) 1.8 /CMM (0.1-1.30); MONOCYTES % (AUTO) 15.5 % (2.0-12.0); NEUTROPHILS # (AUTO) 8.4 /CMM (1.8-8.9); NEUTROPHILS % (AUTO) 71.3 % (43.0-81.0); PLATELET COUNT (AUTO) 385 /CMM (150-450); RED BLOOD CELL COUNT(AUTO) 2.79 MIL/uL (4.5-6.0); WHITE BLOOD COUNT (AUTO) 11.8 K/uL (4.3-11.0)
[2016-05-18 09:31] LABS: CALCIUM, SERUM 7.5 mg/dL (8.5-10.1); CREATININE 2.3 mg/dL (0.6-1.3); PHOSPHORUS 3.1 mg/dL (2.5-4.9)
[2016-05-18] MEDS: LEVETIRACETAM SOL (5 ML) 100 MG/ML UDC GT SCH ×2 (09:51→22:19)
[2016-05-18] MEDS: FAMOTIDINE (20 MG) 20 MG TABLET GT SCH (09:52)
[2016-05-18] MEDS: VIT B CMPLX 3/FA/VIT C/BIOTIN 1 TAB TABLET GT SCH (09:52)
[2016-05-18] MEDS: PANTOPRAZOLE 40 MG/PACK PACK GT SCH (09:52)
[2016-05-18] MEDS: LEVOTHYROXINE SODIUM 25 MCG TABLET GT SCH (09:52)
[2016-05-18] MEDS: MUPIROCIN OINT 2% 22 GM TUBE SCH ×2 (09:52→22:23)
[2016-05-18] MEDS: HYDROGEL DRESSING 90 GM TUBE TP SCH (09:53)
[2016-05-18] MEDS: DOXYCYCLINE 100 MG in IV D5W 100 ML IV SCH ×2 (09:54→22:19)
[2016-05-18 11:03] LABS: BAND % (MANUAL) 1 % (0.0-5.0); EOSINOPHILS % (MANUAL) 2 % (0-4); LYMPHOCYTES % (MANUAL) 5 % (16-48)
[2016-05-18 11:04] LABS: PLATELET ESTIMATE INCREASED
[2016-05-18 12:00] VITALS: BP_SYST 140; BP_SYST 147; BP_DIAS 86
[2016-05-18] MEDS: INSULIN REGULAR, HUMAN 100 UNIT/ML 3 ML VIAL SQ PRN (12:45)
[2016-05-18 16:00] VITALS: BP 156/90
[2016-05-18 20:00] VITALS: BP 162/87
[2016-05-18] MEDS: INSULIN DETEMIR 100 UNIT/ML CARTRIDGE SQ SCH (22:00)
[2016-05-19] VITALS (10 sets, daily range): BP systolic 147–167; BP diastolic 67–89
[2016-05-19] MEDS: BLOOD SUGAR DIAGNOSTIC 1 EACH STRIP IN SCH ×4 (01:16→17:18)
[2016-05-19] MEDS: METOCLOPRAMIDE HCL 10 MG/2 ML VIAL IV SCH ×4 (01:58→20:16)
[2016-05-19] MEDS: PROPRANOLOL HCL 40 MG TABLET GT SCH ×3 (06:05→20:21)
[2016-05-19] MEDS: PHENYTOIN SUSP UDC 100 MG/4 ML UDC GT SCH ×3 (06:05→20:21)
[2016-05-19] MEDS: LEVETIRACETAM SOL (5 ML) 100 MG/ML UDC GT SCH ×2 (08:51→20:21)
[2016-05-19] MEDS: FAMOTIDINE (20 MG) 20 MG TABLET GT SCH (08:52)
[2016-05-19] MEDS: VIT B CMPLX 3/FA/VIT C/BIOTIN 1 TAB TABLET GT SCH (08:52)
[2016-05-19] MEDS: PANTOPRAZOLE 40 MG/PACK PACK GT SCH (08:52)
[2016-05-19] MEDS: LEVOTHYROXINE SODIUM 25 MCG TABLET GT SCH (08:52)
[2016-05-19] MEDS: MUPIROCIN OINT 2% 22 GM TUBE SCH ×2 (08:52→20:22)
[2016-05-19] MEDS: DOXYCYCLINE 100 MG in IV D5W 100 ML IV SCH ×2 (08:53→20:16)
[2016-05-19] MEDS: HYDROGEL DRESSING 90 GM TUBE TP SCH (08:53)
[2016-05-19] MEDS: IV D5/ 0.9% NACL 1,000 ML IV PRN (09:04)
[2016-05-19] MEDS ORDERED: ALLA266C2 TP (09:43)
[2016-05-19] MEDS ORDERED: MUPI22OI7 (09:43)
[2016-05-19] MEDS ORDERED: DOXY100T2 PO (09:43)
[2016-05-19] MEDS ORDERED: Phenytoin GT (09:43)
[2016-05-19] MEDS ORDERED: Gel Dressing TP (09:43)
[2016-05-19] MEDS ORDERED: BLOOD IV SET 1 EA INFUS.SET MC ONE (11:28)
[2016-05-19] MEDS ORDERED: IV NS 0.9% 250 ML IV ONE (11:29)
[2016-05-19] MEDS: INSULIN DETEMIR 100 UNIT/ML CARTRIDGE SQ SCH (22:06)
== END 2016-05-19 22:50 | DRG 720 ==
LOC: ER 11:24 → TELE 13:23 → TELE1 13:32
PROVIDERS: ADMIT Internal Medicine Nephrology; ATTEND Internal Medicine Nephrology
PROC: 5A1955Z Respiratory Ventilation, Greater than 96 Consecutive Hours (ICD-10-PCS; principal; 2016-05-04)
PROC: 30233N1 Transfusion of Nonautologous Red Blood Cells into Peripheral Vein, Percutaneous Approach (ICD-10-PCS; 2016-05-06)
PROC: 05H533Z Insertion of Infusion Device into Right Subclavian Vein, Percutaneous Approach (ICD-10-PCS; 2016-05-13)
PROC: 0DJ08ZZ Inspection of Upper Intestinal Tract, Via Natural or Artificial Opening Endoscopic (ICD-10-PCS; 2016-05-15)
DX: A41.9 Sepsis, unspecified organism (principal); J69.0 Pneumonitis due to inhalation of food and vomit; G93.1 Anoxic brain damage, not elsewhere classified; R40.3 Persistent vegetative state; Z99.11 Dependence on respirator [ventilator] status; N17.9 Acute kidney failure, unspecified; J96.11 Chronic respiratory failure with hypoxia; E87.2 Acidosis; Z93.0 Tracheostomy status; R13.10 Dysphagia, unspecified; I12.9 Hypertensive chronic kidney disease with stage 1 through stage 4 chronic kidney disease, or unspecified chronic kidney disease; N39.0 Urinary tract infection, site not specified; N18.9 Chronic kidney disease, unspecified; E03.9 Hypothyroidism, unspecified; E83.52 Hypercalcemia; D50.9 Iron deficiency anemia, unspecified; Z22.322 Carrier or suspected carrier of Methicillin resistant Staphylococcus aureus; K31.84 Gastroparesis; R65.20 Severe sepsis without septic shock
CPT/HCPCS: 31720; 36415; 36600; 71010-TC; 71250-TC; 72192-TC; 74150-TC; 76770-TC; 80048-TC; 80053-TC; 80074; 80076-TC; 80202-TC; 81000-TC; 82306; 82652; 82962-TC; 83540-TC; 83605-TC; 83735-TC; 83970; 84100-TC; 84484-TC; 85025-TC; 85730-TC; 86850-TC; 86921-TC; 87040-TC; 87081-TC; 87086-TC; 94002-TC; 94003-TC; 99082-TC; A4216; A4606; A6248; J1815; J1953; J1956; J2185; J2248; J2430; J2543; J2765; J3370; J3475; J3480; J3490; J7030; J7040; J7042; J7050; J7060; J7070; P9016-BL; Z7610

== ENCOUNTER 2016-06-23 18:02 | Emergency (ER) | payer MEDICAID ==
[~2016-06-23] VITALS: Ht 170.2 cm; Wt 64.9 kg
[~2016-06-23 18:02] MED LIST changes: +ALLA266C2 TP; +DOXY100T2 PO; -FERR300L GT; +FOLI0.8T2 GT; -GLUC1VIA IM; +Gel Dressing TP; -HYDR-4076 GT; +HYDR-552 GT; -LEVE500T6 GT; +LEVE500T9 GT; +MUPI22OI7; +NUT.237L67 GT; +OMEP40CA37 GT; +ONDA4TAB5 GT; +Phenytoin GT; -VITA1TAB20 GT
[2016-06-23 18:48] VITALS: BP 119/77
[2016-06-23 18:56] LABS: BASOPHILS # (AUTO) 0.1 /CMM (0.0-0.2); BASOPHILS % (AUTO) 0.4 % (0.0-2.0); DIFF TOTAL % 100 %; EOSINOPHILS # (AUTO) 0.7 /CMM (0.0-0.7); EOSINOPHILS % (AUTO) 5.4 % (0.0-6.0); HEMATOCRIT 25 % (39-51); HEMOGLOBIN 8.5 g/dL (13.5-17.5); LYMPHOCYTES # (AUTO) 1.5 /CMM (0.8-4.8); MEAN CORPUSCULAR HEMOGLOBIN 31 PG (26.0-33.0); MEAN CORPUSCULAR HGB CONC 34 g/dl (31.0-36.0); MEAN CORPUSCULAR VOLUME 92 fL (80-96); MONOCYTES # (AUTO) 1.3 /CMM (0.1-1.30); NEUTROPHILS % (AUTO) 72.2 % (43.0-81.0); PLATELET COUNT (AUTO) 291 /CMM (150-450); RED BLOOD CELL COUNT(AUTO) 2.71 MIL/uL (4.5-6.0); WHITE BLOOD COUNT (AUTO) 12.6 K/uL (4.3-11.0)
[2016-06-23 19:07] LABS: CALCIUM, SERUM 10.3 mg/dL (8.5-10.1); CREATININE 2.6 mg/dL (0.6-1.3); POTASSIUM 4.3 mmol/L (3.5-5.1)
[2016-06-23 19:17] LABS: KETONES,URINE Negative (NEGATIVE); LEUKOCYTE ESTERASE ,URINE Small (NEGATIVE)
[2016-06-23 19:21] LABS: LACTIC ACID 1.8 mmol/L (0.4-2.0)
[2016-06-23 19:30] LABS: ADD UA MICROSCOPIC YES
[2016-06-23 19:32] LABS: ADD URINE CULTURE YES; RBC,URINE NONE SEEN /HPF (0-2)
[2016-06-23] MEDS ORDERED: CEFTRIAXONE 1GM BAG (ER ONLY) 1 GM/50 ML PIGGYBACK IV ONE (20:00)
[2016-06-23] MEDS ORDERED: IV NS 0.9% 500 ML IV ONE (20:00)
[2016-06-23] MEDS ORDERED: IV NS 0.9% 500 ML BAG IV ONE (20:00)
[2016-06-23] MEDS ORDERED: CEFTRIAXONE 1GM BAG (ER ONLY) 50 ML IV ONE (20:00)
[2016-06-23] MEDS ORDERED: IV SET PRIMARY 1 EA INFUS.SET MC ONE (20:00)
[2016-06-23 21:14] VITALS: BP 130/78
[2016-06-23] MEDS ORDERED: IBUPROFEN 600 MG TABLET PO ONE (21:19)
[2016-06-23] MEDS ORDERED: CYCLOBENZAPRINE 10 MG TABLET ONE (21:19)
[2016-06-23 23:22] VITALS: BP 134/80
[2016-06-24 00:05] VITALS: BP 127/80
== END 2016-06-24 00:06 | disposition home or self-care (01) ==
LOC: ER 18:03
DX: N39.0 Urinary tract infection, site not specified (principal); G93.40 Encephalopathy, unspecified; I12.9 Hypertensive chronic kidney disease with stage 1 through stage 4 chronic kidney disease, or unspecified chronic kidney disease; F32.9 Major depressive disorder, single episode, unspecified; N18.9 Chronic kidney disease, unspecified
CPT/HCPCS: 36415; 74176; 80048; 81001; 83605; 85025; 87086; 93005; 96365; 99082; 99285; A4606; J0696; J7040; Z7610; 81000-TC

== ENCOUNTER 2016-08-05 14:06 | Emergency (ER) | payer MEDICAID ==
[~2016-08-05] VITALS: Ht 177.8 cm; Wt 64.9 kg
--- NOTE | 2016-08-05 14:14 | NUR ---
dorina from [facility] for gtube malfunction-- patient is vent/ trache dependent ac16 tv 550 sfo860% and peep 5. patient is afebrile. Gt noted with 30 cc residual, postive bowel sounds, however noted leaking. Awaiting for md hi
[2016-08-05 14:22] VITALS: BP 129/76
--- NOTE | 2016-08-05 14:22 | NUR ---
PATIENT RECEIVE IN ER FROM TRANSPORT TEAM WITH #9 PORTEX TRACH AND PLACED ON PB 840 VENT. SETTING'S PER PHYSICIAN'S ORDERS. ALARMS SET AND AUDIBLE. VENT PLUGGED INTO RED OUTLET. SUCTIONED AND LAVAGED MODERATE AMOUNT OF THICK AGUILLON SECRETIONS. AMBU BAG AT [facility].
[2016-08-05 16:14] LABS: BASOPHILS # (AUTO) 0.1 /CMM (0.0-0.2); BASOPHILS % (AUTO) 0.6 % (0.0-2.0); EOSINOPHILS # (AUTO) 0.2 /CMM (0.0-0.7); EOSINOPHILS % (AUTO) 2.1 % (0.0-6.0); HEMATOCRIT 42 % (39-51); HEMOGLOBIN 13.5 g/dL (13.5-17.5); LYMPHOCYTES # (AUTO) 1.6 /CMM (0.8-4.8); LYMPHOCYTES % (AUTO) 15.9 % (20.0-44.0); MEAN CORPUSCULAR HEMOGLOBIN 30 PG (26.0-33.0); MEAN CORPUSCULAR HGB CONC 32 g/dl (31.0-36.0); MEAN CORPUSCULAR VOLUME 93 fL (80-96); MONOCYTES # (AUTO) 1.3 /CMM (0.1-1.30); MONOCYTES % (AUTO) 13.3 % (2.0-12.0); NEUTROPHILS # (AUTO) 6.9 /CMM (1.8-8.9); NEUTROPHILS % (AUTO) 68.1 % (43.0-81.0); PLATELET COUNT (AUTO) 373 /CMM (150-450); RDW COEFFICIENT OF VARIATION 15.1 (11.5-15.0); RED BLOOD CELL COUNT(AUTO) 4.46 MIL/uL (4.5-6.0); WHITE BLOOD COUNT (AUTO) 10.1 K/uL (4.3-11.0)
[2016-08-05 16:24] LABS: CALCIUM, SERUM 9.8 mg/dL (8.5-10.1); CREATININE 1.8 mg/dL (0.6-1.3); POTASSIUM 4.3 mmol/L (3.5-5.1)
[2016-08-05 16:28] LABS: INR 1.14 (0.87-1.13)
[2016-08-05 16:30] LABS: ALBUMIN 2.9 g/dL (3.4-5.0); BILIRUBIN,DIRECT 0.1 mg/dL (0.0-0.2); BILIRUBIN,TOTAL 0.3 mg/dL (0.2-1.0); TOTAL PROTEIN, SERUM 7.1 g/dL (6.4-8.2)
--- NOTE | 2016-08-05 16:44 | NUR ---
PAGED DR MARISOL PATRICIO.
--- NOTE | 2016-08-05 16:46 | NUR ---
CALLED [facility] FOR TRANSPORTATION GOING BACK TO SNF, REQUESTED RT FOR VENT. ETA 1830.
[2016-08-05 17:50] VITALS: BP 111/67
[2016-08-05 18:55] VITALS: BP 118/78
--- NOTE | 2016-08-05 18:56 | NUR ---
PATIENT WAS PICKED UP BY [facility]- EMT AND RT,. VSS.
== END 2016-08-05 18:58 ==
LOC: EDUNIT# 14:06 → ER 14:09
DX: Z93.1 Gastrostomy status (principal); I10 Essential (primary) hypertension; F32.9 Major depressive disorder, single episode, unspecified; R79.1 Abnormal coagulation profile; G40.909 Epilepsy, unspecified, not intractable, without status epilepticus; E03.9 Hypothyroidism, unspecified
CPT/HCPCS: 36415; 80048-TC; 80076-TC; 85025-TC; 85730-TC; A4606; Z7610

== ENCOUNTER 2016-08-25 18:13 | Inpatient (IN) | payer MEDICAID ==
[~2016-08-25] VITALS: Ht 165.1 cm; Wt 64.9 kg
--- NOTE | 2016-08-25 18:29 | NUR ---
BB PRIVATE EMS FROM [facility] FOR JUTUBE INSERTION SENT BY DR PATRICIO. NAD NOTED. PT OBTUNDED, ON VENTILATOR, VSS. RT AT BEDSIDE. MD AT BEDSIDE FOR EVAL. PT PLACED IN MONITOR. CONTINUE TO MONITOR.
--- NOTE | 2016-08-25 18:35 | NUR ---
XRAY AT BEDSIDE
[2016-08-25 18:39] LABS: BASOPHILS % (AUTO) 0.4 % (0.0-2.0); EOSINOPHILS # (AUTO) 0.3 /CMM (0.0-0.7); EOSINOPHILS % (AUTO) 3.1 % (0.0-6.0); HEMATOCRIT 42 % (39-51); HEMOGLOBIN 13.9 g/dL (13.5-17.5); LYMPHOCYTES # (AUTO) 1.2 /CMM (0.8-4.8); LYMPHOCYTES % (AUTO) 12.6 % (20.0-44.0); MEAN CORPUSCULAR HEMOGLOBIN 30 PG (26.0-33.0); MEAN CORPUSCULAR HGB CONC 33 g/dl (31.0-36.0); MEAN CORPUSCULAR VOLUME 90 fL (80-96); MONOCYTES # (AUTO) 0.7 /CMM (0.1-1.30); MONOCYTES % (AUTO) 7.1 % (2.0-12.0); NEUTROPHILS # (AUTO) 7.4 /CMM (1.8-8.9); NEUTROPHILS % (AUTO) 76.8 % (43.0-81.0); PLATELET COUNT (AUTO) 262 /CMM (150-450); RDW COEFFICIENT OF VARIATION 14.3 (11.5-15.0); RED BLOOD CELL COUNT(AUTO) 4.66 MIL/uL (4.5-6.0); WHITE BLOOD COUNT (AUTO) 9.6 K/uL (4.3-11.0)
[2016-08-25 18:46] LABS: CALCIUM, SERUM 10.2 mg/dL (8.5-10.1); CREATININE 2.6 mg/dL (0.6-1.3); POTASSIUM 3.8 mmol/L (3.5-5.1)
[2016-08-25 18:52] LABS: ALBUMIN 3.1 g/dL (3.4-5.0); BILIRUBIN,DIRECT 0.1 mg/dL (0.0-0.2); BILIRUBIN,TOTAL 0.3 mg/dL (0.2-1.0); TOTAL PROTEIN, SERUM 7.9 g/dL (6.4-8.2)
--- NOTE | 2016-08-25 19:01 | NUR ---
REPORT REC'D FROM JOEL RICARDO FOR LAUREN.
[2016-08-25 19:10] VITALS: BP 128/79
--- NOTE | 2016-08-25 19:10 | NUR ---
RT AT THE BEDSIDE.
[2016-08-25 19:11] LABS: INR 1.52 (0.87-1.13); PROTHROMBIN TIME 16.7 SECS (9.5-12.7)
--- NOTE | 2016-08-25 19:17 | NUR ---
'S GROUP CALLED, BRANCH SERVICE SPECIALIST
[2016-08-25] MEDS ORDERED: IV NS 0.9% 500 ML BAG IV ONE (19:30)
--- NOTE | 2016-08-25 19:30 | NUR ---
CALLED NURSING SUP. FOR TELE BED
[2016-08-25] MEDS ORDERED: IV SET PRIMARY 1 EA INFUS.SET MC ONE (19:33)
[2016-08-25] MEDS ORDERED: IV NS 0.9% 500 ML IV ONE (19:33)
[2016-08-25] MEDS ORDERED: CHLO25TA13 GT (19:39)
[2016-08-25] MEDS ORDERED: INSU100I26 SQ (19:39)
[2016-08-25] MEDS ORDERED: METO5SOL2 GT (19:39)
[2016-08-25] MEDS ORDERED: ENOX30DI SQ (19:39)
[2016-08-25] MEDS ORDERED: INSU100V26 SQ (19:39)
[2016-08-25] MEDS ORDERED: ERYT-113 GT (19:39)
[2016-08-25] MEDS ORDERED: AMIN30LI2 GT (19:39)
[2016-08-25] MEDS ORDERED: DIPH1TAB PO (19:39)
--- NOTE | 2016-08-25 20:12 | NUR ---
PT'S VENT SETTINGS: AC 16, TV 500, FIO2 30%. PEEP 5
--- NOTE | 2016-08-25 20:12 | NUR ---
CALLING REPORT TO TELE NURSE.
--- NOTE | 2016-08-25 20:16 | NUR ---
REPORT GIVEN TO JOEL KENNEDY FOR LAUREN
--- NOTE | 2016-08-25 20:16 | NUR ---
RN NOTE RECEIVED REPORT FROM MARBLE POLISHER HANDJOEL PADILLA FOR CONTINUITY OF CARE.
[2016-08-25 20:30] VITALS: BP 127/83
--- NOTE | 2016-08-25 20:33 | NUR ---
RN INITIAL NOTE RECEIVED PT IN NO ACUTE DISTRESS IN BED. PT IS OBTUNDED, PT OPENS EYES BUT IS NON VERBAL. PT IS ON MECHANICAL VENT VIA TRACH. TRACH SITE IS CLEAN DRY AND INTACT. PT IS TOLERATING VENT SETTING WELL. PT IS ON TELE WITH SR ON THE MONITOR. PT HAS G TUBE THAT IS CLEAN DRY INTACT AND PATENT WITH FREE WATER FLUSH. PT HAS RESIDUAL OF 150. WILL RECHECK RESIDUAL IN 2 HOURS. PT HAS LHAND 22G AND LAC 18G THAT ARE CLEAN DRY INTACT AND PATENT WITH SALINE FLUSH. BOTH LINES ARE SALINE LOCKED. BED IN LOW LOCK POSITION WITH RIALS UP X 2. CALL LIGHT WITHIN REACH AND ALL SAFETY MEASURES ENSURED AND CARRIED OUT. WILL CONTINUE TO MONITOR PT.
--- NOTE | 2016-08-25 20:35 | NUR ---
PT TRANSPORTED TO TELE VIA GURNEY WITH RT, EMT AND MYSELFT. BAGGING IN PROGRESS. PT IS ON THE MONITOR AND CONTINUOUS PULSE OX.
--- NOTE | 2016-08-25 20:38 | NUR ---
PT TRANSPORTED TO 106 Addendum: 08/25/16 at 2037 by LOREE DIAZ RT Amended: Links added.
[2016-08-25 20:40] VITALS: BP 127/83
[2016-08-25] MEDS ORDERED: ACETAMINOPHEN 650 MG/20.3 ML UDC GT PRN (21:00)
[2016-08-25] MEDS ORDERED: HYDROCODONE/APAP 5/325MG 1 EACH TABLET GT PRN (21:00)
[2016-08-25] MEDS ORDERED: INSULIN REGULAR, HUMAN 100 UNIT/ML 3 ML VIAL SQ PRN (21:00)
[2016-08-25] MEDS ORDERED: DIPHENOXYLATE HCL/ATROP SULF 1 UDTAB TABLET GT PRN (21:00)
[2016-08-25] MEDS ORDERED: DEXTROSE 50%-WATER 50 ML DISP.SYRIN IV PRN (21:00)
[2016-08-25] MEDS ORDERED: FIBERSOURCE HN 1,000 ML BOTTLE GT PRN (21:30)
[2016-08-25] MEDS ORDERED: PROPRANOLOL HCL 40 MG TABLET ONE (22:33)
[2016-08-25] MEDS: PROPRANOLOL HCL 40 MG TABLET GT SCH (22:38)
[2016-08-26] VITALS: BP 130/74
[2016-08-26] MEDS ORDERED: METOCLOPRAMIDE HCL 10 MG TABLET GT SCH
[2016-08-26] MEDS ORDERED: METOCLOPRAMIDE HCL 10 MG/10 ML UDC ONE ×2 (00:16→05:13)
[2016-08-26] MEDS ORDERED: ERYTHROMYCIN BASE (250 MG) 250 MG CAPSULE.DR PO ONE ×2 (00:32→05:08)
[2016-08-26] MEDS: ERYTHROMYCIN BASE (250 MG) 250 MG CAPSULE.DR PO SCH ×2 (00:48→05:30)
[2016-08-26] MEDS: BLOOD SUGAR DIAGNOSTIC 1 EACH STRIP IN SCH ×4 (00:57→17:06)
[2016-08-26] MEDS: METOCLOPRAMIDE HCL 10 MG/10 ML UDC PO SCH ×2 (00:58→05:30)
[2016-08-26 04:00] VITALS: BP 137/84
[2016-08-26] MEDS ORDERED: PROPRANOLOL HCL 10 MG TABLET ONE (05:13)
[2016-08-26] MEDS ORDERED: PROPRANOLOL HCL 40 MG TABLET ONE (05:26)
[2016-08-26] MEDS: PROPRANOLOL HCL 40 MG TABLET GT SCH ×3 (05:30→21:50)
--- NOTE | 2016-08-26 06:42 | NUR ---
RN CLOSING NOTE PT REMAINS IN NO ACUTE DISTRESS IN BED. PT DID NOT HAVE ANY SIGNIFICANT CHANGE IN CONDITION. PT TOLERATED VENT SETTING WELL. WILL ENDORSE TO AM RN FOR CONTINUITY OF CARE.
[2016-08-26 06:45] LABS: BASOPHILS % (AUTO) 0.2 % (0.0-2.0); EOSINOPHILS # (AUTO) 0.3 /CMM (0.0-0.7); EOSINOPHILS % (AUTO) 2.5 % (0.0-6.0); HEMATOCRIT 38 % (39-51); HEMOGLOBIN 12.8 g/dL (13.5-17.5); LYMPHOCYTES # (AUTO) 1.7 /CMM (0.8-4.8); LYMPHOCYTES % (AUTO) 15.4 % (20.0-44.0); MEAN CORPUSCULAR HEMOGLOBIN 30 PG (26.0-33.0); MEAN CORPUSCULAR HGB CONC 34 g/dl (31.0-36.0); MEAN CORPUSCULAR VOLUME 90 fL (80-96); MONOCYTES # (AUTO) 0.8 /CMM (0.1-1.30); MONOCYTES % (AUTO) 7.3 % (2.0-12.0); NEUTROPHILS % (AUTO) 74.6 % (43.0-81.0); PLATELET COUNT (AUTO) 266 /CMM (150-450); RED BLOOD CELL COUNT(AUTO) 4.26 MIL/uL (4.5-6.0); WHITE BLOOD COUNT (AUTO) 10.8 K/uL (4.3-11.0)
--- NOTE | 2016-08-26 07:10 | NUR ---
Received male liliane pt on mechanical vent. Pt liliane is secure. Vent is plugged into a red outlet, alarms are audible, and BVM is at bedside. Addendum: 08/26/16 at 1343 by PAU GARVIN RT Amended: Links added.
--- NOTE | 2016-08-26 07:15 | NUR ---
RN INITIAL NOTES: Received patient on bed during rounds, awake, non-verbal, not able to make needs known, needs anticipated and attended. With Vent and Trach in placed with the ff settings AC16, TV500 FIO2 30% PEEP5 saturating well. With Peg tube in placed, and patent, 150cc of residual of previous feeding noted. With Left hand G22 and Left AC G18 all SL,flushed with NS and patent. NPO maintained. NO SOB, No LOC, respirations are even and unlabored, no acute distress noted. Kept clean and dry. Provided safety and comfort measures. Bed low and locked position, fall precaution observed. Will turn and reposition, offload heels as per protocol. HOB elevated, aspiration precaution observed. To continue to monitor accordingly.
[2016-08-26 07:19] LABS: CALCIUM, SERUM 9.4 mg/dL (8.5-10.1); CREATININE 2.5 mg/dL (0.6-1.3); PHOSPHORUS 3.5 mg/dL (2.5-4.9); POTASSIUM 3.5 mmol/L (3.5-5.1)
[2016-08-26] MEDS ORDERED: ERYTHROMYCIN ETHYLSUCCINATE 200 MG/5 ML SUSPENSION GT SCH (07:30)
[2016-08-26] MEDS ORDERED: METOCLOPRAMIDE HCL 10 MG/10 ML UDC GT SCH (07:33)
[2016-08-26 08:00] VITALS: BP 135/81
[2016-08-26] MEDS ORDERED: chlorproMAZINE HCL 25 MG TABLET PO PRN (08:00)
[2016-08-26] MEDS ORDERED: chlorproMAZINE HCL 25 MG TABLET GT PRN (08:00)
[2016-08-26] MEDS: PHENYTOIN SUSP UDC 100 MG/4 ML UDC GT SCH ×3 (08:57→17:06)
[2016-08-26] MEDS ORDERED: PROSOURCE / PROSTAT (PYXIS) 30 ML UDC GT SCH (09:00)
[2016-08-26] MEDS ORDERED: VIT B CMPLX 3/FA/VIT C/BIOTIN 1 TAB TABLET PO SCH (09:00)
[2016-08-26] MEDS ORDERED: ENOXAPARIN SODIUM 30 MG/0.3 ML DISP.SYRIN SQ SCH (09:00)
[2016-08-26] MEDS: LEVETIRACETAM SOL (5 ML) 100 MG/ML UDC GT SCH ×2 (09:01→17:06)
--- NOTE | 2016-08-26 10:34 | NUR ---
RN NOTES: Dietitian ordered for feeding residual-a/w for review.
[2016-08-26] MEDS ORDERED: LEVOTHYROXINE SODIUM 25 MCG TABLET GT SCH (11:30)
[2016-08-26 12:00] VITALS: BP 128/82
[2016-08-26] MEDS: ERYTHROMYCIN ETHYLSUCCINATE 200 MG/5 ML SUSPENSION GT SCH ×2 (12:09→17:05)
--- NOTE | 2016-08-26 13:30 | NUR ---
RN NOTES: Seen and examined by Dr. Mohan Varma with orders noted and carried out. For J-tube placement by Dr. Waldo Preston, he notified MD. Informed Dr. Kojo Preston as well that patient still having residual at 1145am when checked, about 180cc of brownish colored from Peg tube. Chantelle Pharmacist informed of Medication reconciliation by , faxed to pharmacy.
--- NOTE | 2016-08-26 13:55 | NUR ---
RN NOTES: Noted by Dr. Preston feeding not started since beginning of shift due to large amount of residuals.
[2016-08-26] MEDS ORDERED: DIPHENOXYLATE HCL/ATROP SULF 1 UDTAB TABLET PO PRN (14:00)
[2016-08-26] MEDS ORDERED: NEPRO VAN 237 ML CAN GT SCH (14:00)
[2016-08-26] MEDS ORDERED: chlorproMAZINE HCL 25 MG TABLET GT SCH (14:00)
[2016-08-26] MEDS ORDERED: ACETAMINOPHEN 325 MG TABLET PO PRN (14:00)
[2016-08-26] MEDS ORDERED: HYDROCODONE/APAP 5/325MG 1 EACH TABLET GT PRN (14:00)
[2016-08-26] MEDS ORDERED: HOME MED MISCELLANEOUS XX SCH (14:30)
[2016-08-26] MEDS: IV D5/ 0.9% NACL 1,000 ML IV PRN (14:40)
[2016-08-26 16:00] VITALS: BP 123/64
--- NOTE | 2016-08-26 16:39 | NUR ---
RN NOTES: Clarified with RN Jayjay staff in [place] [facility] what Flexpen patient is using in their facility as per Jayjay its Flexpen (Basaglar) 18units HS, Pharmacist Anita informed.
[2016-08-26] MEDS: METOCLOPRAMIDE HCL 10 MG/10 ML UDC GT SCH (17:05)
[2016-08-26] MEDS: INSULIN REGULAR, HUMAN 100 UNIT/ML 3 ML VIAL SQ PRN (17:12)
--- NOTE | 2016-08-26 18:18 | NUR ---
RN NOTES: Patient remain stable within shift, no signs and symptoms of distress noted. Noted residual of 150cc at this time, withheld feeding, with IV Hydration D5 NS 75cc/hr infusing well. HOB elevated, aspiration precaution observed. Suction secretions PRN. Provided safety and comfort measures. To endorsed to next shift for continuity of care.
[2016-08-26] MEDS: Z GUARD REMEDY 2 OZ OINT TP SCH (18:53)
--- NOTE | 2016-08-26 19:45 | NUR ---
RN INITIAL NOTE RECEIVED PT IN NO ACUTE DISTRESS IN BED. PT IS OBTUNDED, PT OPENS EYES BUT IS NON VERBAL. PT IS ON MECHANICAL VENT VIA TRACH. TRACH SITE IS CLEAN DRY AND INTACT. PT IS TOLERATING VENT SETTING WELL. PT IS ON TELE WITH SR ON THE MONITOR. PT HAS G TUBE THAT IS CLEAN DRY INTACT AND PATENT WITH FREE WATER FLUSH. PT HAS RESIDUAL OF 40. PT HAS LHAND 22G AND LAC 18G THAT ARE CLEAN DRY INTACT AND PATENT WITH SALINE FLUSH. BOTH LINES ARE SALINE LOCKED. BED IN LOW LOCK POSITION WITH RIALS UP X 2. CALL LIGHT WITHIN REACH AND ALL SAFETY MEASURES ENSURED AND CARRIED OUT. WILL CONTINUE TO MONITOR PT.
[2016-08-26 20:00] VITALS: BP 138/77
[2016-08-26] MEDS ORDERED: ERYTHROMYCIN BASE (250 MG) 250 MG CAPSULE.DR PO SCH (21:00)
[2016-08-27] VITALS: BP 131/64
[2016-08-27] MEDS ORDERED: ERYTHROMYCIN BASE (250 MG) 250 MG CAPSULE.DR PO ONE (00:27)
[2016-08-27] MEDS: METOCLOPRAMIDE HCL 10 MG/10 ML UDC GT SCH ×5 (00:47→23:48)
[2016-08-27] MEDS: BLOOD SUGAR DIAGNOSTIC 1 EACH STRIP IN SCH ×5 (00:56→23:43)
[2016-08-27 04:00] VITALS: BP 140/63
[2016-08-27] MEDS: ERYTHROMYCIN ETHYLSUCCINATE 200 MG/5 ML SUSPENSION GT SCH ×5 (05:24→23:47)
[2016-08-27] MEDS: PROPRANOLOL HCL 40 MG TABLET GT SCH ×3 (05:24→20:46)
--- NOTE | 2016-08-27 06:46 | NUR ---
RN NOTE UNABLE TO GIVE ERYTHROMYCIN 250MG DUE TO MEDICATION NOT AVAILABLE. WILL NOTIFY PHARMACY TO OMAR APARICIO. WILL ENDORSE TO AM RN WITH REPORT
--- NOTE | 2016-08-27 06:53 | NUR ---
RN CLOSING NOTE PT DID NOT HAVE ANY SIGNIFICANT CHANGE IN CONDITION DURING SHIFT. PT TOLERATED VENT SETTING WELL WITH O2 SAT @ 100%. PT REMAINS IN NO ACUTE DISTRESS IN BED. WILL ENDORSE TO AM RN FOR CONTINUITY OF CARE.
--- NOTE | 2016-08-27 07:15 | NUR ---
RN INITIAL NOTES: Rec'd pt awake on bed, obtunded, not in any distress. Pt on mech vent via trach (Portex 9) w/ ff settings: AC 16, TV 500, FiO2 30%, PEEP 5, saturating at 100%. On telemonitoring, SR w/ HR 80 bpm. Pt has L hand G22, SL & LAC G18 w/ D5NS at 75 cc/hr infusing well, both patent, clean, dry & intact w/ no signs of infection/infiltration noted. Has PEG patent & intact, residual checked, 200 cc noted. Will turn, reposition & offload heels as per protocol. Provided comfort & safety measures. Call light placed w/in reach. Bed kept low & in locked position. Will monitor closely.
[2016-08-27] MEDS: IV D5/ 0.9% NACL 1,000 ML IV PRN ×2 (07:22→21:11)
[2016-08-27] MEDS ORDERED: PANTOPRAZOLE 40 MG TABLET.DR PO SCH (07:30)
[2016-08-27 08:00] VITALS: BP_SYST 131; BP_DIAS 74; BP_DIAS 79
[2016-08-27] MEDS ORDERED: VIT B CMPLX 3/FA/VIT C/BIOTIN 1 TAB TABLET PO SCH (09:00)
[2016-08-27] MEDS: ENOXAPARIN SODIUM 30 MG/0.3 ML DISP.SYRIN SQ SCH (09:00)
[2016-08-27] MEDS: PHENYTOIN SUSP UDC 100 MG/4 ML UDC GT SCH ×3 (09:01→17:02)
[2016-08-27] MEDS: PROSOURCE / PROSTAT (PYXIS) 30 ML UDC GT SCH ×2 (09:01→17:01)
[2016-08-27] MEDS: VIT B CMPLX 3/FA/VIT C/BIOTIN 1 TAB TABLET GT SCH (09:01)
[2016-08-27] MEDS: LEVETIRACETAM SOL (5 ML) 100 MG/ML UDC GT SCH ×2 (09:01→17:02)
[2016-08-27] MEDS: PANTOPRAZOLE 40 MG/PACK PACK GT SCH (09:01)
[2016-08-27] MEDS: LEVOTHYROXINE SODIUM 25 MCG TABLET GT SCH (09:01)
[2016-08-27] MEDS: Z GUARD REMEDY 2 OZ OINT TP SCH (09:02)
--- NOTE | 2016-08-27 11:13 | NUR ---
WOUND CARE CONSULT: PATIENT SEEN AND SKIN ASSESSMENT DONE. VENT DEPENDENT QUADRIPLEGIC PATIENT, HAS GT, INCONTINENT, DELFINA 11, IMMOBILE, ON OSCAR ISOFLEX AMARILYS BED. SEE TODAY'S SKIN ASSESSMENT IN PCS ALONG WITH RECOMMENDATIONS. RECOMMEND MOISTURE PROTECTION WITH Z GUARD ORDERED, PRESSURE PREVENTION MEASURES ORDERED. ALL DISCUSSED WITH NURSING STAFF. MD IN AGREEMENT WITH PLAN OF CARE. Addendum: 08/27/16 at 1115 by JIMMY RODRIGUEZ WNDNU Amended: Links added.
[2016-08-27 12:00] VITALS: BP 121/71
[2016-08-27] MEDS: NEOMY SULF/BACITRAC ZN/POLY 15 GM TUBE TP SCH (13:21)
--- NOTE | 2016-08-27 15:24 | NUR ---
RN NOTES: Dr. Jay made aware of gastric residual, >200 mL.
[2016-08-27 16:00] VITALS: BP 122/78
--- NOTE | 2016-08-27 17:00 | NUR ---
RN NOTES: Dr. Velasquez made aware of the gastric residual, >200 ml.
--- NOTE | 2016-08-27 18:42 | NUR ---
RN CLOSING NOTES: No acute changes noted w/in shift. Pt tolerated prescribed mech vent settings, saturating at 100%. Suctioned secretions. Pt's L hand G22, SL & LAC G18 w/ D5NS at 75 cc/hr infusing well, both patent, clean, dry & intact w/ no signs of infection/infiltration noted. Has PEG patent & intact, residual checked, noted >150 output. Pt turned, repositioned & offloaded heels. Kept rested and comfortable. Call light placed w/in reach. Bed kept low & in locked position. Will endorse to PM RN for LAUREN.
--- NOTE | 2016-08-27 19:30 | NUR ---
HEAD TRANSFER CLERK NOTES RECEIVED PT IN BED.OBTUNDED. NO S/S OF ANY PAIN OR DISCOMFORT NOTED. ON VENT SETTINGS ORDERED. NO ACUTE RESP. DISTRESS NOTED.GT RESIDUAL CHECKED ( 0mL ). ON IVF INFUSING WELL AT 75CC/HR. NO S/S OF FLUID OVERLOAD. CLEAN AND DRY. WILL CONTINUE TO MONITOR.
[2016-08-27 20:00] VITALS: BP 133/70
[2016-08-27] MEDS: INSULIN REGULAR, HUMAN 100 UNIT/ML 3 ML VIAL SQ PRN (23:44)
[2016-08-27] MEDS: chlorproMAZINE HCL 25 MG TABLET GT PRN (23:47)
[2016-08-28] VITALS: BP 137/69
[2016-08-28 04:00] VITALS: BP 108/61
[2016-08-28] MEDS: PROPRANOLOL HCL 40 MG TABLET GT SCH ×3 (05:00→21:47)
[2016-08-28] MEDS: ERYTHROMYCIN ETHYLSUCCINATE 200 MG/5 ML SUSPENSION GT SCH ×4 (05:30→23:32)
[2016-08-28] MEDS: METOCLOPRAMIDE HCL 10 MG/10 ML UDC GT SCH ×4 (05:30→23:32)
[2016-08-28] MEDS: BLOOD SUGAR DIAGNOSTIC 1 EACH STRIP IN SCH ×4 (05:46→23:32)
--- NOTE | 2016-08-28 06:41 | NUR ---
ROUTE SALES DELIVERY DRIVER NOTES NO SIGNIFICANT CHANGES NOTED THROUGHOUT THE NIGHT. TELE MONITOR READING = SR 84. WILL ENDORSE PT TO THE NEXT SHIFT.
[2016-08-28 07:07] LABS: BASOPHILS % (AUTO) 0.3 % (0.0-2.0); EOSINOPHILS # (AUTO) 0.2 /CMM (0.0-0.7); EOSINOPHILS % (AUTO) 2.5 % (0.0-6.0); HEMATOCRIT 36 % (39-51); HEMOGLOBIN 12.2 g/dL (13.5-17.5); LYMPHOCYTES # (AUTO) 1.2 /CMM (0.8-4.8); LYMPHOCYTES % (AUTO) 16.8 % (20.0-44.0); MEAN CORPUSCULAR HEMOGLOBIN 31 PG (26.0-33.0); MEAN CORPUSCULAR HGB CONC 34 g/dl (31.0-36.0); MEAN CORPUSCULAR VOLUME 90 fL (80-96); MONOCYTES # (AUTO) 0.7 /CMM (0.1-1.30); MONOCYTES % (AUTO) 9.1 % (2.0-12.0); NEUTROPHILS # (AUTO) 5.2 /CMM (1.8-8.9); NEUTROPHILS % (AUTO) 71.3 % (43.0-81.0); PLATELET COUNT (AUTO) 244 /CMM (150-450); RDW COEFFICIENT OF VARIATION 14.7 (11.5-15.0); RED BLOOD CELL COUNT(AUTO) 3.96 MIL/uL (4.5-6.0); WHITE BLOOD COUNT (AUTO) 7.4 K/uL (4.3-11.0)
--- NOTE | 2016-08-28 07:08 | NUR ---
RT PT RECEIVED TRACHED ON THE VENT WITH NOTED SETTINGS. PT IS AWAKE BUT DOES NOT FOLLOW COMMANDS. VENT ALARMS ARE SET AND AUDIBLE WITH BVM BY BEDSIDE. GENERAL SERVICE TECHNICIAN CUFF PRESSURE NOTED. VENT IS PLUGGED INTO RED OUTLET. SX SMALL THIN WHITE/CLEAR SECRETIONS. NO RESPIRATORY DISTRESS NOTED AT THIS TIME, WILL CONTINUE TO MONITOR. Addendum: 08/28/16 at 1034 by DEANN SHETH RT Amended: Links added.
[2016-08-28 07:13] LABS: ALBUMIN 2.8 g/dL (3.4-5.0); BILIRUBIN,TOTAL 0.3 mg/dL (0.2-1.0); CALCIUM, SERUM 9.1 mg/dL (8.5-10.1); CREATININE 2.5 mg/dL (0.6-1.3); MAGNESIUM 1.9 mg/dL (1.8-2.4); PHOSPHORUS 4.4 mg/dL (2.5-4.9); POTASSIUM 3.7 mmol/L (3.5-5.1)
--- NOTE | 2016-08-28 07:30 | NUR ---
RN NOTEs RECEIVED PT RESTING IN BED, NON-VERBAL, PT HAS TRACHE, PORTEX#9, ON [facility] VENT SETTINGS AT AC 16, TV 500 FI02 30% PEEP 5 TOLERATING WELL NO S/S OF ACUTE SOB OR DISTRESS. SUCTIONED FOR AIRWAY CLEARANCE. TELE SR ON MONITOR. IVF D5NS RUNNING @75ML/HR INFUSING ON L AC. PT HAS A PEG CURRENTLY NPO EXCEPT MEDS PER NIGHT NURSE REPORT AWAITING GI CONSULT FOR POSSIBLE JTUBE PLACEMENT. ALL SAFETY MEASURES IN PLACE. REPOSITIONED FOR COMFORT. CALL LIGHT WITHIN REACH, WILL CONT TO MONITOR
[2016-08-28 08:00] VITALS: BP 115/86
[2016-08-28] MEDS: ENOXAPARIN SODIUM 30 MG/0.3 ML DISP.SYRIN SQ SCH (08:56)
[2016-08-28] MEDS: VIT B CMPLX 3/FA/VIT C/BIOTIN 1 TAB TABLET GT SCH (09:02)
[2016-08-28] MEDS: LEVOTHYROXINE SODIUM 25 MCG TABLET GT SCH (09:02)
[2016-08-28] MEDS: LEVETIRACETAM SOL (5 ML) 100 MG/ML UDC GT SCH ×2 (09:02→16:57)
[2016-08-28] MEDS: PANTOPRAZOLE 40 MG/PACK PACK GT SCH (09:02)
[2016-08-28] MEDS: PHENYTOIN SUSP UDC 100 MG/4 ML UDC GT SCH ×3 (09:02→16:57)
[2016-08-28] MEDS: PROSOURCE / PROSTAT (PYXIS) 30 ML UDC GT SCH ×2 (09:02→16:57)
[2016-08-28] MEDS: Z GUARD REMEDY 2 OZ OINT TP SCH (09:03)
[2016-08-28] MEDS: NEOMY SULF/BACITRAC ZN/POLY 15 GM TUBE TP SCH (09:03)
[2016-08-28 12:00] VITALS: BP 141/86
[2016-08-28] MEDS: IV D5/ 0.9% NACL 1,000 ML IV PRN (12:12)
[2016-08-28 16:00] VITALS: BP_SYST 141; BP_SYST 143; BP_DIAS 85
--- NOTE | 2016-08-28 19:40 | NUR ---
TELE INITIAL RN NOTES PT IS IN BED, HOB ELEVATED, OBTUNDED, NONVERBAL, TRACH IS INTACT, PORTEX9, AC 16, TV500, FIO2 30, PEEP 5. NO RESPIRATORY DISTRESS NOTED. ON TELE SINUS RHYTHM, IV SITES FLUSHED AND INTACT. GT SITES CLEAN AND INTACT GTF ON HOLD, EXCEPT MEDS. ALL SAFETY MEASURES MAINTAINED, ALL NEEDS ANTICIPATED.
[2016-08-28 20:00] VITALS: BP 145/82
--- NOTE | 2016-08-28 21:31 | NUR ---
ALL [facility] ONCE CLEARED FOR PATIENTS SAFETY.
[2016-08-29] VITALS: BP 155/77
[2016-08-29] MEDS ORDERED: IV D5/ 0.9% NACL 1,000 ML IV ONE (01:41)
[2016-08-29] MEDS: IV D5/ 0.9% NACL 1,000 ML IV PRN ×2 (01:48→16:13)
[2016-08-29 04:00] VITALS: BP 144/69
[2016-08-29] MEDS: BLOOD SUGAR DIAGNOSTIC 1 EACH STRIP IN SCH ×4 (05:23→22:54)
[2016-08-29] MEDS: PROPRANOLOL HCL 40 MG TABLET GT SCH ×4 (05:23→21:00)
[2016-08-29] MEDS: ERYTHROMYCIN ETHYLSUCCINATE 200 MG/5 ML SUSPENSION GT SCH ×4 (05:23→22:55)
[2016-08-29] MEDS: METOCLOPRAMIDE HCL 10 MG/10 ML UDC GT SCH ×4 (05:23→22:54)
--- NOTE | 2016-08-29 07:11 | NUR ---
TELE CLOSING RN NOTES NO SIGNIFICANT CHANGE OVERNIGHT. PT TOLERATED VENT SETTINGS, TRACH CARE PROVIDED, NO SIGNS AND SYMPTOMS OF RESPIRATORY DISTRESS NOTED. IV SITES PATENT AND INTACT, ON D5NS @75ML/HR. GT FEEDING ON HOLD, GT SITE CLEAN AND INTACT. WOUND CARE PROVIDED, TURNED AND REPOSITIONED Q2H AND PRN. SAFETY MEASURES MAINTAINED, HOB ELEVATED, SIDERAILS UP AND LOCKED, ALL NEEDS ANTICIPATED, ENDORSED TO AM NURSE FOR CONTINUITY CARE
--- NOTE | 2016-08-29 07:20 | NUR ---
RN INITIAL NOTES RECEIVED PT IN BED, OBTUNDED, UNABLE TO FOLLOW COMMANDS, PT IS ON [facility] VENT PORTEX #9 AC 16 TV 500 FIO2 30% PEEP 5, NO RES. DISTRESS OR SOB NOTED AT THIS TIME, PT IS ON TELE MONITOR SHOWING SR @ 80 BPM, NO C/O OF PAIN OR DISTRESS NOTED, PT HAS GTUBE, CLAMPED, AWAITING REPLACEMENT. PT IS CURRENTLY NPO AT THIS TIME, PT IS NOTED WITH SKIN ISSUES, PT HAS L HAND 22G, SL, LAC # 18G, RUNNING D5NS @ 75ML/HR, C/D/I/PATENT, FLUSHING WELL, SL, NO INFILTRATION/ INFECTION NOTED AT THIS TIME, ALL SAFETY MEASURES IN PLACE AT ALL TIMES, CALL LIGHT WITHIN EASY REACH, WILL MONITOR PT CLOSELY
[2016-08-29 08:00] VITALS: BP 148/77
[2016-08-29] MEDS: PHENYTOIN SUSP UDC 100 MG/4 ML UDC GT SCH ×3 (08:11→16:05)
[2016-08-29] MEDS: VIT B CMPLX 3/FA/VIT C/BIOTIN 1 TAB TABLET GT SCH (08:12)
[2016-08-29] MEDS: ENOXAPARIN SODIUM 30 MG/0.3 ML DISP.SYRIN SQ SCH (08:12)
[2016-08-29] MEDS: LEVOTHYROXINE SODIUM 25 MCG TABLET GT SCH (08:12)
[2016-08-29] MEDS: PROSOURCE / PROSTAT (PYXIS) 30 ML UDC GT SCH ×2 (08:12→16:05)
[2016-08-29] MEDS: PANTOPRAZOLE 40 MG/PACK PACK GT SCH (08:12)
[2016-08-29] MEDS: LEVETIRACETAM SOL (5 ML) 100 MG/ML UDC GT SCH ×2 (08:12→16:05)
[2016-08-29] MEDS: NEOMY SULF/BACITRAC ZN/POLY 15 GM TUBE TP SCH (08:32)
[2016-08-29] MEDS: Z GUARD REMEDY 2 OZ OINT TP SCH (08:32)
[2016-08-29 12:00] VITALS: BP_SYST 140; BP_SYST 147; BP_DIAS 75; BP_DIAS 80
--- NOTE | 2016-08-29 15:40 | NUR ---
RT Patient received trached on mechanical vent. Breath sounds equal bilaterally. Trach midline. Vent settings as ordered. Vent plugged into red outlet and alarms set and audible. Ambu bag at the bed side.
[2016-08-29 16:00] VITALS: BP 145/77
--- NOTE | 2016-08-29 18:32 | NUR ---
RN CLOSING NOTES PT REMAINED STABLE DURING SHIFT, ALL MEDICATIONS GIVEN, ALL MD ORDERS CARRIED OUT, ALL TREATMENTS COMPLETED, IV C/D/I/PATENT, RUNNING FLUIDS ORDERED, G TUBE CLAMPED AT THIS TIME, ALL SAFETY MEASURES IN PLACE AT ALL TIMES, CALL LIGHT WITHIN EASY REACH, WILL GIVE REPORT TO PM RN FOR LAUREN
[2016-08-29 20:00] VITALS: BP 139/82
[2016-08-30] VITALS: BP 151/82
[2016-08-30 04:00] VITALS: BP 148/87
[2016-08-30] MEDS: PROPRANOLOL HCL 40 MG TABLET GT SCH ×4 (05:00→21:01)
--- NOTE | 2016-08-30 05:01 | NUR ---
RT NOTES: PT HAS MINIMAL AMOUNT OF SECRETIONS. WILL CONTINUE TO MONITOR.
[2016-08-30] MEDS: METOCLOPRAMIDE HCL 10 MG/10 ML UDC GT SCH ×3 (05:05→17:04)
[2016-08-30] MEDS: ERYTHROMYCIN ETHYLSUCCINATE 200 MG/5 ML SUSPENSION GT SCH ×3 (05:05→17:04)
[2016-08-30 07:26] LABS: BASOPHILS % (AUTO) 0.3 % (0.0-2.0); EOSINOPHILS # (AUTO) 0.2 /CMM (0.0-0.7); EOSINOPHILS % (AUTO) 1.7 % (0.0-6.0); HEMATOCRIT 39 % (39-51); HEMOGLOBIN 13.1 g/dL (13.5-17.5); LYMPHOCYTES # (AUTO) 1.2 /CMM (0.8-4.8); LYMPHOCYTES % (AUTO) 11.3 % (20.0-44.0); MEAN CORPUSCULAR HEMOGLOBIN 31 PG (26.0-33.0); MEAN CORPUSCULAR HGB CONC 34 g/dl (31.0-36.0); MEAN CORPUSCULAR VOLUME 90 fL (80-96); MONOCYTES # (AUTO) 0.7 /CMM (0.1-1.30); MONOCYTES % (AUTO) 6.8 % (2.0-12.0); NEUTROPHILS # (AUTO) 8.4 /CMM (1.8-8.9); NEUTROPHILS % (AUTO) 79.9 % (43.0-81.0); PLATELET COUNT (AUTO) 253 /CMM (150-450); RDW COEFFICIENT OF VARIATION 14.7 (11.5-15.0); WHITE BLOOD COUNT (AUTO) 10.6 K/uL (4.3-11.0)
[2016-08-30 07:43] LABS: CALCIUM, SERUM 9.4 mg/dL (8.5-10.1); CREATININE 2.4 mg/dL (0.6-1.3); MAGNESIUM 1.6 mg/dL (1.8-2.4); PHOSPHORUS 3.2 mg/dL (2.5-4.9); POTASSIUM 3.3 mmol/L (3.5-5.1)
[2016-08-30 08:00] VITALS: BP 161/95
[2016-08-30] MEDS: LEVOTHYROXINE SODIUM 25 MCG TABLET GT SCH (08:14)
[2016-08-30] MEDS: PANTOPRAZOLE 40 MG/PACK PACK GT SCH (08:14)
[2016-08-30] MEDS: VIT B CMPLX 3/FA/VIT C/BIOTIN 1 TAB TABLET GT SCH (08:14)
[2016-08-30] MEDS: PROSOURCE / PROSTAT (PYXIS) 30 ML UDC GT SCH ×2 (08:14→16:08)
[2016-08-30] MEDS: Z GUARD REMEDY 2 OZ OINT TP SCH (08:16)
[2016-08-30] MEDS: NEOMY SULF/BACITRAC ZN/POLY 15 GM TUBE TP SCH (08:17)
[2016-08-30] MEDS: IV D5/ 0.9% NACL 1,000 ML IV PRN (08:28)
[2016-08-30] MEDS: BLOOD SUGAR DIAGNOSTIC 1 EACH STRIP IN SCH ×3 (08:28→17:30)
[2016-08-30] MEDS: ENOXAPARIN SODIUM 30 MG/0.3 ML DISP.SYRIN SQ SCH (08:51)
[2016-08-30] MEDS ORDERED: SECONDARY IV SET 1 EA INFUS.SET MC ONE ×2 (09:56→21:04)
[2016-08-30] MEDS: LEVETIRACETAM (500MG) 500 MG in IV NS 0.9% 100 ML IV SCH ×2 (09:57→21:01)
[2016-08-30] MEDS: PHENYTOIN SODIUM IV 50 MG/ML VIAL IV SCH ×2 (09:59→21:01)
[2016-08-30] MEDS ORDERED: POTASSIUM CL. PREMIX PERIPHER. 50 ML IV SCH (11:30)
[2016-08-30 12:00] VITALS: BP 155/92
[2016-08-30] MEDS ORDERED: IV SET PRIMARY PUMP SET 1 EA INFUS.SET MC ONE (12:14)
[2016-08-30] MEDS: IV D5/0.45 NACL 1,000 ML IV PRN (12:18)
[2016-08-30 16:00] VITALS: BP 146/89
[2016-08-30] MEDS ORDERED: Magnesium 1GM/D5W 100ML PREMIX 100 ML IV SCH (18:30)
[2016-08-30 20:00] VITALS: BP 143/62
[2016-08-30] MEDS: HEPARIN SODIUM, PORCINE 5000 UNITS/1 ML VIAL SQ SCH (21:03)
[2016-08-30] MEDS ORDERED: FILTER SET SAVER IV SET 1 EA INFUS.SET MC ONE (21:04)
[2016-08-30] MEDS ORDERED: MORPHINE SULFATE INJ 4 MG/ML DISP.SYRIN ONE (22:36)
[2016-08-30] MEDS ORDERED: METOCLOPRAMIDE HCL 10 MG/2 ML VIAL ONE (22:37)
[2016-08-30] MEDS: METOCLOPRAMIDE HCL 10 MG/2 ML VIAL IV PRN (22:45)
[2016-08-30] MEDS: MORPHINE SULFATE INJ 4 MG/ML DISP.SYRIN IV PRN (22:46)
[2016-08-31] VITALS: BP_SYST 150; BP_SYST 163; BP_DIAS 69; BP_DIAS 94
[2016-08-31] MEDS: BLOOD SUGAR DIAGNOSTIC 1 EACH STRIP IN SCH ×4 (00:10→17:32)
--- NOTE | 2016-08-31 01:59 | NUR ---
RN NOTES RECEIVED PT ASLEEP ON BED. WITH TRACH CONNECTED TO VENT SETTING AC 16 TV 500 FIO2 30% PEEP5 OBTUNDED OPENS EYES ST 106 ON TELE MONITOR . HICCUPS NOTED. SUCTIONED PT WITH THICK WHITISH SECRETION. SATING 100% IV SITE O N LAC G 18 AND LEFT HAND G 22 RUNNING WITH D5NS @ 100 CC/HR. ON STRICTLY NPO OR NO GTF DUE TO PLAN OF J-TUBE REPLACEMENT. KEPT PT CLEAN AND DRY WILL CONTINUE TO MONITOR.
[2016-08-31 04:00] VITALS: BP 142/74
[2016-08-31] MEDS: PROPRANOLOL HCL 40 MG TABLET GT SCH ×3 (05:08→21:00)
[2016-08-31] MEDS: ERYTHROMYCIN ETHYLSUCCINATE 200 MG/5 ML SUSPENSION GT SCH ×4 (06:00→17:32)
[2016-08-31] MEDS: IV D5/0.45 NACL 1,000 ML IV PRN ×2 (06:08→16:06)
[2016-08-31] MEDS ORDERED: METOCLOPRAMIDE HCL 10 MG/2 ML VIAL ONE (06:12)
[2016-08-31] MEDS: METOCLOPRAMIDE HCL 10 MG/2 ML VIAL IV PRN ×2 (06:19→11:47)
--- NOTE | 2016-08-31 06:36 | NUR ---
RN NOTES PT AWAKE ON BED NO ACUTE RESP DISTRESS TRACH AND VENT SETTING TOLERATED WELL. AFEBRILE. EPISODE OF VOMITING NOTED AT THIS TIME. PRN MEDICINE GIVEN ORDERED.HOB KEPT ELEVATED. REMAINED IN NPO OR NO FEEDING STATUS. PLANNED TO PLACED J-TUBE WILL ENDORSED CONTINUITY OF CARE TO AM NURSE.
--- NOTE | 2016-08-31 06:50 | NUR ---
PT RECEIVED TRACHED ON MECHANICAL VENT W/ SETTINGS PER MD. VENT IN RED OUTLET, AMBUBAG AT BEDSIDE, VENT ALARMS CHECKED AND AUDIBLE. PT SX'ED AND LAVAGED PRN. NO RESP DISTRESS NOTED AT THIS TIME. PLAN IS TO CONTINUE CARE W/ CURRENT MD ORDERS AND MONITOR FOR CHANGES. Addendum: 08/31/16 at 0943 by VERONIKA NORRIS RT Amended: Links added.
[2016-08-31 06:57] LABS: BASOPHILS % (AUTO) 0.1 % (0.0-2.0); EOSINOPHILS % (AUTO) 0.1 % (0.0-6.0); HEMATOCRIT 40 % (39-51); HEMOGLOBIN 13.6 g/dL (13.5-17.5); LYMPHOCYTES # (AUTO) 1.1 /CMM (0.8-4.8); LYMPHOCYTES % (AUTO) 7.6 % (20.0-44.0); MEAN CORPUSCULAR HEMOGLOBIN 31 PG (26.0-33.0); MEAN CORPUSCULAR HGB CONC 34 g/dl (31.0-36.0); MEAN CORPUSCULAR VOLUME 90 fL (80-96); MONOCYTES % (AUTO) 6.6 % (2.0-12.0); NEUTROPHILS # (AUTO) 12.9 /CMM (1.8-8.9); NEUTROPHILS % (AUTO) 85.6 % (43.0-81.0); PLATELET COUNT (AUTO) 270 /CMM (150-450); RDW COEFFICIENT OF VARIATION 14.7 (11.5-15.0); RED BLOOD CELL COUNT(AUTO) 4.45 MIL/uL (4.5-6.0); WHITE BLOOD COUNT (AUTO) 15.1 K/uL (4.3-11.0)
[2016-08-31 07:10] LABS: CALCIUM, SERUM 9.5 mg/dL (8.5-10.1); CREATININE 2.4 mg/dL (0.6-1.3); MAGNESIUM 1.8 mg/dL (1.8-2.4); PHOSPHORUS 2.8 mg/dL (2.5-4.9); POTASSIUM 3.5 mmol/L (3.5-5.1)
--- NOTE | 2016-08-31 07:10 | NUR ---
RN INITIAL NOTES RECEIVED PT [facility]. [facility] WITH FF SETTINGS: AC16, TV500, FI02 30%, PEEP +5. TRACH IN PLACE. HOB ELEVATED. NO RESPIRATORY DISTRESS NOTED. NO SOB NOTED. NO SIGNS OF PAIN NOTED. SINUS TACHYCARDIA AT 108 ON MONITOR. IV LINES IN PLACE. ON D5 1/2NS AT 75ML/HR. BLE ELEVATED. PT COMFORTABLE. WILL MONITOR.
[2016-08-31 08:00] VITALS: BP_SYST 158; BP_SYST 164; BP_DIAS 95; BP_DIAS 98
[2016-08-31] MEDS: PHENYTOIN SODIUM IV 50 MG/ML VIAL IV SCH ×2 (08:12→22:00)
[2016-08-31] MEDS: LEVOTHYROXINE SODIUM 25 MCG TABLET GT SCH (08:13)
[2016-08-31] MEDS: PROSOURCE / PROSTAT (PYXIS) 30 ML UDC GT SCH ×2 (08:13→16:06)
[2016-08-31] MEDS: Z GUARD REMEDY 2 OZ OINT TP SCH (08:13)
[2016-08-31] MEDS: VIT B CMPLX 3/FA/VIT C/BIOTIN 1 TAB TABLET GT SCH (08:13)
[2016-08-31] MEDS: PANTOPRAZOLE 40 MG/PACK PACK GT SCH (08:13)
[2016-08-31] MEDS: NEOMY SULF/BACITRAC ZN/POLY 15 GM TUBE TP SCH (08:14)
[2016-08-31] MEDS: HEPARIN SODIUM, PORCINE 5000 UNITS/1 ML VIAL SQ SCH ×2 (08:16→22:03)
[2016-08-31] MEDS: LEVETIRACETAM (500MG) 500 MG in IV NS 0.9% 100 ML IV SCH ×2 (08:46→22:01)
[2016-08-31] MEDS: hydrALAZINE HCL IV 20 MG VIAL IV PRN (11:47)
[2016-08-31 12:00] VITALS: BP_SYST 157; BP_SYST 168; BP_DIAS 95; BP_DIAS 98
[2016-08-31 16:00] VITALS: BP 155/87
--- NOTE | 2016-08-31 16:05 | NUR ---
RN NOTES SEEN AND EXAMINED BY DR. DIANA PATRICIO. PER MD, WILL HOLD OFF ON JT PLACEMENT DUE TO TACHYCARDIA AND LEUKOCYTOSIS. WILL CONTINUE TO MONITOR.
--- NOTE | 2016-08-31 16:10 | NUR ---
RN NOTES SEEN AND EXAMINED BY MADAN (ID). NOTIFIED THAT PT IS ON ERYTHROMYCIN AND BEEN ON HOLD SINCE PT WAS PLACED ON NPO. MADAN REVEIWED CURRENT LABS AND MEDS. PER MADAN, MOST LIKELY ERYTHROMYCIN IS BEING USED FOR MOTILITY, ASK GI. WILL CALL GI DOCTOR. WILL MONITOR.
[2016-08-31] MEDS ORDERED: VANCOMYCIN 1 GM in IV D5W 250 ML IV SCH (18:30)
[2016-08-31] MEDS ORDERED: SECONDARY IV SET 1 EA INFUS.SET MC ONE (18:41)
--- NOTE | 2016-08-31 18:47 | NUR ---
RN CLOSING NOTES NO SIGNIFICANT CHANGE NOTED. REMAINS ON MECH VENT. NO SOB NOTED. KEPT HOB ELEVATED. SUCTIONED Q2 AND PRN. IV LINES IN PLACE. TOLERATING IVF WELL. NO ASE NOTED. KEPT CLEAN AND DRY. REPOSITIONED Q2. KEPT BLE ELEVATED. WILL ENDORSE FOR CONTINUITY OF CARE.
[2016-08-31 20:00] VITALS: BP 150/91
--- NOTE | 2016-08-31 20:00 | NUR ---
received pt from day shift , obtunded, ST, on the vent, lungs partially congested, no edema, GT clamped, v/s stable, no pain, pt turned and repositioned.
[2016-08-31] MEDS: MEROPENEM 500 MG in IV NS 0.9% 50 ML IV SCH (21:06)
--- NOTE | 2016-08-31 23:43 | NUR ---
pt sputum induction done at this hour. JOEL Guy aware and notified to call lab in order to bean picker sample. pt has strong productive cough. Small amount of thick yellow sputum collected and placed in trap and labeled Addendum: 08/31/16 at 2345 by CHALO RATLIFF RT Amended: Links added.
[2016-09-01] VITALS: BP 123/93
[2016-09-01] MEDS: BLOOD SUGAR DIAGNOSTIC 1 EACH STRIP IN SCH ×5 (00:47→23:14)
[2016-09-01 04:00] VITALS: BP 154/91
[2016-09-01] MEDS: PROPRANOLOL HCL 40 MG TABLET GT SCH ×3 (04:08→20:22)
[2016-09-01] MEDS: IV D5/0.45 NACL 1,000 ML IV PRN ×2 (04:26→18:55)
--- NOTE | 2016-09-01 04:43 | NUR ---
pt is resting in the bed, no acute distress overnight, v/s stable, no pain, pt cleaned, changed and repositioned q2hrs.
[2016-09-01] MEDS: ERYTHROMYCIN ETHYLSUCCINATE 200 MG/5 ML SUSPENSION GT SCH ×5 (05:02→23:10)
--- NOTE | 2016-09-01 07:20 | NUR ---
HUI RN NOTE Received patient awake, noted with rigid extremities. With trache to vent, tolerated settings well. Sat 99%. Noted diaphoretic, ST 120's and SBP 170, will give Hydralazine PRN and Morphine. Temp 100.3, placed on cooling measures. Positioned for comfort. PIVs intact, IVF infusing as ordered. No S/S hypo/hyperglycemia at this time. No any critical labs noted at this time.
[2016-09-01 08:00] VITALS: BP 170/104
[2016-09-01] MEDS: VIT B CMPLX 3/FA/VIT C/BIOTIN 1 TAB TABLET GT SCH (08:08)
[2016-09-01] MEDS: PROSOURCE / PROSTAT (PYXIS) 30 ML UDC GT SCH ×2 (08:09→17:00)
[2016-09-01] MEDS: LEVOTHYROXINE SODIUM 25 MCG TABLET GT SCH (08:09)
[2016-09-01] MEDS: PANTOPRAZOLE 40 MG/PACK PACK GT SCH (08:09)
[2016-09-01] MEDS: MEROPENEM 500 MG in IV NS 0.9% 50 ML IV SCH ×2 (08:38→19:48)
[2016-09-01] MEDS: PHENYTOIN SODIUM IV 50 MG/ML VIAL IV SCH ×2 (08:39→20:21)
[2016-09-01] MEDS: MORPHINE SULFATE INJ 4 MG/ML DISP.SYRIN IV PRN (08:39)
[2016-09-01] MEDS: hydrALAZINE HCL IV 20 MG VIAL IV PRN (08:39)
[2016-09-01] MEDS: HEPARIN SODIUM, PORCINE 5000 UNITS/1 ML VIAL SQ SCH ×2 (08:40→20:21)
[2016-09-01] MEDS ORDERED: SECONDARY IV SET 1 EA INFUS.SET MC ONE (09:01)
[2016-09-01] MEDS: Z GUARD REMEDY 2 OZ OINT TP SCH (09:19)
[2016-09-01] MEDS: LEVETIRACETAM (500MG) 500 MG in IV NS 0.9% 100 ML IV SCH ×2 (09:19→20:22)
[2016-09-01] MEDS: NEOMY SULF/BACITRAC ZN/POLY 15 GM TUBE TP SCH (09:45)
[2016-09-01 10:58] LABS: HEMATOCRIT 40 % (39-51); HEMOGLOBIN 13.4 g/dL (13.5-17.5); LYMPHOCYTES # (AUTO) 0.9 /CMM (0.8-4.8); LYMPHOCYTES % (AUTO) 3.5 % (20.0-44.0); MEAN CORPUSCULAR HEMOGLOBIN 30 PG (26.0-33.0); MEAN CORPUSCULAR HGB CONC 33 g/dl (31.0-36.0); MEAN CORPUSCULAR VOLUME 90 fL (80-96); MONOCYTES # (AUTO) 1.3 /CMM (0.1-1.30); MONOCYTES % (AUTO) 5.1 % (2.0-12.0); NEUTROPHILS # (AUTO) 22.6 /CMM (1.8-8.9); NEUTROPHILS % (AUTO) 91.4 % (43.0-81.0); PLATELET COUNT (AUTO) 301 /CMM (150-450); RED BLOOD CELL COUNT(AUTO) 4.47 MIL/uL (4.5-6.0); WHITE BLOOD COUNT (AUTO) 24.7 K/uL (4.3-11.0)
[2016-09-01 11:16] LABS: ALBUMIN 2.6 g/dL (3.4-5.0); BILIRUBIN,TOTAL 0.3 mg/dL (0.2-1.0); CALCIUM, SERUM 9.1 mg/dL (8.5-10.1); CREATININE 2.7 mg/dL (0.6-1.3); MAGNESIUM 1.5 mg/dL (1.8-2.4); PHOSPHORUS 2.6 mg/dL (2.5-4.9); POTASSIUM 3.6 mmol/L (3.5-5.1); TOTAL PROTEIN, SERUM 6.9 g/dL (6.4-8.2)
[2016-09-01 11:19] LABS: LYMPHOCYTES % (MANUAL) 5 % (16-48); MONOCYTES % (MANUAL) 9 % (0-11.0); NEUTROPHILS % (MANUAL) 86 (42-76)
[2016-09-01 11:20] LABS: PLATELET ESTIMATE ADEQUATE
[2016-09-01] MEDS: PANTOPRAZOLE 40 MG VIAL IV SCH (11:29)
[2016-09-01 12:00] VITALS: BP 118/74
[2016-09-01 16:00] VITALS: BP_SYST 127; BP_SYST 160; BP_DIAS 83; BP_DIAS 84
[2016-09-01] MEDS ORDERED: FEE PK DOSING 1 MIN EA MC ONE (17:04)
--- NOTE | 2016-09-01 17:26 | NUR ---
HUI RN NOTE Spoke with Dr. Soto re: Mg 1.6, said no need to cover. Addendum: 09/01/16 at 1727 by SAM FRANCO RN correction Mg level 1.5
--- NOTE | 2016-09-01 17:30 | NUR ---
MILITARY TECHNICIAN NOTE Placed William catheter as ordered by ID, patient tolerated procedure well.
[2016-09-01] MEDS: VANCOMYCIN 0.75 GM in IV D5W 250 ML IV SCH (18:10)
[2016-09-01] MEDS: METOCLOPRAMIDE HCL 10 MG/2 ML VIAL IV PRN (18:59)
--- NOTE | 2016-09-01 19:20 | NUR ---
RN INITIAL NOTES RECEIVED PT OBTUNDED ON BED, OPENS EYES ONLY. ON VENT PORTEX 8, AC 16, TV 500, 30% FIO2, PEEP 5, SATURATING WELL, NO S/S OF RESP DISTRESS. CURRENTLY ST ON THE MONITOR, HR 120'S. RAMON CATH IS INTACT. NPO, FOR JTUBE PLACEMENT WHEN STABLE. LEFT HAND 22G AND LEFT AC 18 WITH D5 1/2NS @ 75MLS/HR, FLUSHED AND PATENT, NO S/S OF INFILTRATION/INFECTION, DRESSINGS CDI. BED LOW AND LOCKED, SIDERAILS UP. WILL MONITOR
[2016-09-01 20:00] VITALS: BP 145/84
[2016-09-02] VITALS: BP 123/77
[2016-09-02 04:00] VITALS: BP 137/72
[2016-09-02] MEDS: PROPRANOLOL HCL 40 MG TABLET GT SCH ×3 (05:00→20:45)
[2016-09-02] MEDS: ERYTHROMYCIN ETHYLSUCCINATE 200 MG/5 ML SUSPENSION GT SCH ×4 (05:12→23:18)
[2016-09-02] MEDS: IV D5/0.45 NACL 1,000 ML IV PRN (05:12)
[2016-09-02] MEDS: BLOOD SUGAR DIAGNOSTIC 1 EACH STRIP IN SCH ×3 (05:19→18:00)
--- NOTE | 2016-09-02 06:30 | NUR ---
RN CLOSING NOTES PT REMAINS STABLE OF THE MOMENT. DUE MEDS GIVEN, AM CARE PROVIDED. WILL ENDORSE TO AM RN
[2016-09-02 06:52] LABS: EOSINOPHILS % (AUTO) 0.2 % (0.0-6.0); HEMATOCRIT 38 % (39-51); HEMOGLOBIN 12.5 g/dL (13.5-17.5); LYMPHOCYTES # (AUTO) 1.1 /CMM (0.8-4.8); MEAN CORPUSCULAR HEMOGLOBIN 30 PG (26.0-33.0); MEAN CORPUSCULAR HGB CONC 33 g/dl (31.0-36.0); MEAN CORPUSCULAR VOLUME 91 fL (80-96); MONOCYTES % (AUTO) 6.4 % (2.0-12.0); NEUTROPHILS # (AUTO) 13.9 /CMM (1.8-8.9); NEUTROPHILS % (AUTO) 86.4 % (43.0-81.0); PLATELET COUNT (AUTO) 251 /CMM (150-450); RDW COEFFICIENT OF VARIATION 15.3 (11.5-15.0); RED BLOOD CELL COUNT(AUTO) 4.15 MIL/uL (4.5-6.0); WHITE BLOOD COUNT (AUTO) 16.1 K/uL (4.3-11.0)
[2016-09-02 07:00] LABS: ALBUMIN 2.3 g/dL (3.4-5.0); BILIRUBIN,TOTAL 0.2 mg/dL (0.2-1.0); CREATININE 2.5 mg/dL (0.6-1.3); MAGNESIUM 1.5 mg/dL (1.8-2.4); PHOSPHORUS 2.8 mg/dL (2.5-4.9); POTASSIUM 3.2 mmol/L (3.5-5.1); TOTAL PROTEIN, SERUM 6.5 g/dL (6.4-8.2)
--- NOTE | 2016-09-02 07:00 | NUR ---
RN INITIAL NOTE RECEIVED PT FROM PM NURSE. PT OBTUNDED, SPONTANEOUSLY OPEN EYES NON-VERBAL. PORTEX #8 AC 16 TV 500 FI02 30% PEEP 5 NO S/S OF ACUTE RESP DISTRESS. TELE SINUS TACH. RAMON CATH INTACT. GT NPO. IV L HAND 22 G D5 1/2 NS @75 ML/HR. PT CLEAN WARM AND DRY. ALL SAFETY MEASURES IN PLACE.WILL CONTINUE TO MONITOR CLOSELY
[2016-09-02 08:00] VITALS: BP 134/70
[2016-09-02] MEDS: MEROPENEM 500 MG in IV NS 0.9% 50 ML IV SCH ×2 (08:07→19:45)
[2016-09-02] MEDS: PHENYTOIN SODIUM IV 50 MG/ML VIAL IV SCH ×2 (08:08→20:52)
[2016-09-02] MEDS: NEOMY SULF/BACITRAC ZN/POLY 15 GM TUBE TP SCH (08:08)
[2016-09-02] MEDS: Z GUARD REMEDY 2 OZ OINT TP SCH (08:09)
[2016-09-02] MEDS: PROSOURCE / PROSTAT (PYXIS) 30 ML UDC GT SCH ×2 (08:15→17:00)
[2016-09-02] MEDS: LEVOTHYROXINE SODIUM 25 MCG TABLET GT SCH (08:15)
[2016-09-02] MEDS: VIT B CMPLX 3/FA/VIT C/BIOTIN 1 TAB TABLET GT SCH (08:15)
--- NOTE | 2016-09-02 08:16 | NUR ---
RN NOTE UNABLE TO GIVE GT MEDICATIONS. PT NPO GT CLAMPED
[2016-09-02] MEDS ORDERED: SECONDARY IV SET 1 EA INFUS.SET MC ONE ×3 (09:22→19:31)
[2016-09-02] MEDS: LEVETIRACETAM (500MG) 500 MG in IV NS 0.9% 100 ML IV SCH ×2 (09:31→20:55)
[2016-09-02] MEDS: HEPARIN SODIUM, PORCINE 5000 UNITS/1 ML VIAL SQ SCH ×2 (09:32→20:58)
[2016-09-02] MEDS: PANTOPRAZOLE 40 MG VIAL IV SCH (10:51)
[2016-09-02 12:00] VITALS: BP 137/76
--- NOTE | 2016-09-02 12:02 | NUR ---
RN NOTE NON-ADMINISTRATION FOR ATIVAN. NO S/S OF AGITATION PT NOT RESTLESS CALM AND OPENS EYES SPONTANEOUSLY. Addendum: 09/02/16 at 1207 by CAROL GERBER RN ATIVAN ORDER NOT FOR PT.
--- NOTE | 2016-09-02 12:20 | NUR ---
RN NOTE CALLED DR PATRICIO NOTIFIED K 3.2, MG 1.5. NO REPLACEMENT ORDERED.
[2016-09-02] MEDS ORDERED: Magnesium 1GM/D5W 100ML PREMIX 100 ML IV SCH (13:00)
--- NOTE | 2016-09-02 13:28 | NUR ---
RN NOTE GT MEDICATION NOT GIVEN GT MALFUNCTION.
[2016-09-02 16:00] VITALS: BP 131/79
[2016-09-02] MEDS ORDERED: IV D5/0.45 NACL 1,000 ML IV ONE (18:27)
[2016-09-02] MEDS: VANCOMYCIN 0.75 GM in IV D5W 250 ML IV SCH (18:39)
[2016-09-02] MEDS ORDERED: IV SET PRIMARY PUMP SET 1 EA INFUS.SET MC ONE ×2 (18:44→19:31)
[2016-09-02] MEDS: Potassium Chloride 20 MEQ in IV D5/0.45 NACL 1,000 ML IV PRN (19:44)
--- NOTE | 2016-09-02 19:47 | NUR ---
RN CLOSING NOTES PT OBTUNDED, SPONTANEOUSLY OPEN EYES NON-VERBAL. PORTEX #8 AC 16 TV 500 FI02 30% PEEP 5 NO S/S OF ACUTE RESP DISTRESS. TELE SINUS TACH. RAMON CATH INTACT. GT NPO. IV L HAND 22 G D5 1/2 NS @75 ML/HR. PT CLEAN WARM AND DRY. ALL SAFETY MEASURES IN PLACE. ALL IV MEDICATIONS GIVEN. ALL ORDERS CARRIED OUT.REPORT GIVEN TO PM NURSE.
[2016-09-02 20:00] VITALS: BP 132/78
[2016-09-03] VITALS (7 sets, daily range): BP systolic 136–148; BP diastolic 69–84
[2016-09-03] MEDS: BLOOD SUGAR DIAGNOSTIC 1 EACH STRIP IN SCH ×5 (00:25→23:17)
[2016-09-03] MEDS: PROPRANOLOL HCL 40 MG TABLET GT SCH ×3 (04:04→20:37)
[2016-09-03] MEDS: ERYTHROMYCIN ETHYLSUCCINATE 200 MG/5 ML SUSPENSION GT SCH ×4 (05:09→23:18)
[2016-09-03 06:50] LABS: CALCIUM, SERUM 8.9 mg/dL (8.5-10.1); CREATININE 2.5 mg/dL (0.6-1.3); MAGNESIUM 1.8 mg/dL (1.8-2.4); POTASSIUM 3.5 mmol/L (3.5-5.1)
[2016-09-03] MEDS: MEROPENEM 500 MG in IV NS 0.9% 50 ML IV SCH ×2 (08:07→20:03)
[2016-09-03] MEDS: PHENYTOIN SODIUM IV 50 MG/ML VIAL IV SCH ×2 (08:07→20:35)
[2016-09-03] MEDS: Z GUARD REMEDY 2 OZ OINT TP SCH (08:08)
[2016-09-03] MEDS: NEOMY SULF/BACITRAC ZN/POLY 15 GM TUBE TP SCH (08:09)
[2016-09-03] MEDS: VIT B CMPLX 3/FA/VIT C/BIOTIN 1 TAB TABLET GT SCH (08:10)
[2016-09-03] MEDS: HEPARIN SODIUM, PORCINE 5000 UNITS/1 ML VIAL SQ SCH ×2 (08:10→20:36)
[2016-09-03] MEDS: LEVOTHYROXINE SODIUM 25 MCG TABLET GT SCH (08:11)
[2016-09-03] MEDS: PROSOURCE / PROSTAT (PYXIS) 30 ML UDC GT SCH ×2 (08:11→16:54)
[2016-09-03] MEDS: PANTOPRAZOLE 40 MG VIAL IV SCH (09:38)
[2016-09-03] MEDS: LEVETIRACETAM (500MG) 500 MG in IV NS 0.9% 100 ML IV SCH (09:38)
--- NOTE | 2016-09-03 15:25 | NUR ---
RT RECEIVED PT TRACHED ON [facility] VENT. HOUSE DIRECTOR DONE. BILAT BREATH SOUNDS ON AUSCULTATION. VENT PLUGGED INTO RED OUTLET. AMBU BAG AT HEAD OF BED. SUCTIONED SMALL AMOUNTS OF THICK, YELLOW SECRETIONS. NO SIGNS OF DISTRESS NOTED AT THIS TIME. WILL CONTINUE TO MONITOR THE PT FOR ANY CHANGES. Addendum: 09/03/16 at 1832 by CONSUELO HAM RT Amended: Links added.
[2016-09-03] MEDS ORDERED: SECONDARY IV SET 1 EA INFUS.SET MC ONE (17:20)
[2016-09-03] MEDS: VANCOMYCIN 0.75 GM in IV D5W 250 ML IV SCH (17:24)
[2016-09-03] MEDS: FLUCONAZOLE IN NS 100 MG in PREMIX 1 EA IV SCH ×2 (17:24)
--- NOTE | 2016-09-03 20:00 | NUR ---
RN INITIAL NOTES RECEIVED PT OBTUNDED ON BED, OPENS EYES ONLY. ON VENT PORTEX 8, AC 16, TV 500, 30% FIO2, PEEP 5, SATURATING WELL, NO S/S OF RESP DISTRESS. CURRENTLY SR ON THE MONITOR, HR 80-90'S. RAMON CATH IS INTACT. NPO, FOR JTUBE PLACEMENT WHEN STABLE. RIGHT UPPER ARM 20G WITH KCL 20MEQ IN D5 1/2NS @ 75MLS/HR, FLUSHED AND PATENT, NO S/S OF INFILTRATION/INFECTION, DRESSINGS CDI. BED LOW AND LOCKED, SIDERAILS UP. WILL MONITOR
[2016-09-03] MEDS: LEVETIRACETAM SOL (5 ML) 100 MG/ML UDC GT SCH (20:36)
[2016-09-04] VITALS: BP 132/80
[2016-09-04 04:00] VITALS: BP 157/77
[2016-09-04] MEDS: PROPRANOLOL HCL 40 MG TABLET GT SCH ×3 (05:00→20:51)
[2016-09-04] MEDS: BLOOD SUGAR DIAGNOSTIC 1 EACH STRIP IN SCH ×4 (05:21→23:52)
[2016-09-04] MEDS: Potassium Chloride 20 MEQ in IV D5/0.45 NACL 1,000 ML IV PRN ×2 (05:21→16:16)
[2016-09-04] MEDS: ERYTHROMYCIN ETHYLSUCCINATE 200 MG/5 ML SUSPENSION GT SCH ×4 (05:22→20:51)
--- NOTE | 2016-09-04 06:30 | NUR ---
RN CLOSING NOTES PT REMAINS STABLE OF THE MOMENT. ALL DUE MEDS GIVEN. AM CARE PROVIDED. WILL ENDORSE TO AM RN
--- NOTE | 2016-09-04 07:05 | NUR ---
RN INITIAL NOTES RECEIVED PT IN BED WITH HOB ELEVATED. ON MECHANICAL VENTILATOR WITH FF SETTINGS: AC16, TV500, FI02 30%, PEEP +5. NO RESPIRATORY DISTRESS NOTED. NO SOB NOTED. NO SIGNS OF PAIN NOTED. ANGELIQUE #[address] TOLERATING D5 1/2 NS + KCL 20MEQ AT 75ML/HR. GT CLAMPED. FC IN PLACE. NO HEMATURIA NOR SEDIMENTS NOTED. BLE ELEVATED. WILL CONTINUE TO MONITOR.
[2016-09-04 07:20] LABS: CALCIUM, SERUM 8.7 mg/dL (8.5-10.1); CREATININE 2.2 mg/dL (0.6-1.3); POTASSIUM 3.5 mmol/L (3.5-5.1)
[2016-09-04 08:00] VITALS: BP 132/77
[2016-09-04] MEDS: PHENYTOIN SODIUM IV 50 MG/ML VIAL IV SCH ×2 (08:08→20:52)
[2016-09-04] MEDS: MEROPENEM 500 MG in IV NS 0.9% 50 ML IV SCH (08:08)
[2016-09-04] MEDS: PROSOURCE / PROSTAT (PYXIS) 30 ML UDC GT SCH ×2 (08:09→16:06)
[2016-09-04] MEDS: LEVOTHYROXINE SODIUM 25 MCG TABLET GT SCH (08:09)
[2016-09-04] MEDS: LEVETIRACETAM SOL (5 ML) 100 MG/ML UDC GT SCH ×2 (08:09→20:51)
[2016-09-04] MEDS: VIT B CMPLX 3/FA/VIT C/BIOTIN 1 TAB TABLET GT SCH (08:09)
[2016-09-04] MEDS: HEPARIN SODIUM, PORCINE 5000 UNITS/1 ML VIAL SQ SCH ×2 (08:09→20:57)
[2016-09-04] MEDS: NEOMY SULF/BACITRAC ZN/POLY 15 GM TUBE TP SCH (08:10)
[2016-09-04] MEDS: Z GUARD REMEDY 2 OZ OINT TP SCH (08:10)
[2016-09-04] MEDS: PANTOPRAZOLE 40 MG VIAL IV SCH (10:03)
[2016-09-04 12:00] VITALS: BP 134/73
[2016-09-04 16:00] VITALS: BP 144/74
--- NOTE | 2016-09-04 16:15 | NUR ---
RT PT RECEIVED TRACHED ON [facility] VENT. MANUAL ARTS THERAPY TEACHER DONE. BILAT BREATH SOUNDS ON AUSCULTATION. VENT PLUGGED INTO RED OUTLET. ALARMS ON AND SET PROPERLY. AMBU BAG AT HEAD OF BED. SUCTIONED SMALL AMOUNTS OF THICK, WHITE/YELLOW SECRETIONS. NO SOB OR SIGNS OF DISTRESS NOTED AT THIS TIME. WILL CONTINUE TO MONITOR THE PT FOR ANY CHANGES. Addendum: 09/04/16 at 1658 by CONSUELO HAM RT Amended: Links added.
[2016-09-04] MEDS: CEFEPIME 2 GM in IV D5W 100 ML IV SCH (16:16)
[2016-09-04] MEDS: FLUCONAZOLE IN NS 100 MG in PREMIX 1 EA IV SCH ×2 (16:50)
[2016-09-04] MEDS: VANCOMYCIN 0.75 GM in IV D5W 250 ML IV SCH (17:58)
--- NOTE | 2016-09-04 18:33 | NUR ---
RN CLOSING NOTES PT REMAINS STABLE. NO RESPIRATORY DISTRESS NOTED. NO SOB NOTED. TOLERATES VENT WELL. NO SIGNS OF PAIN NOTED. GT REMAINS CLAMPED. IV LINE IN PLACE. ON IVF. FC IN PLACE. KEPT CLEAN AND DRY. REPOSITIONED Q2. KEPT BLE ELEVATED. NO SIGNIFICANT CHANGE NOTED. WILL ENDORSE FOR CONTINUITY OF CARE.
--- NOTE | 2016-09-04 19:30 | NUR ---
HUI RN NOTES RECEIVED PTS ON BED AWAKE AND RESPONSIVE , ON MECHANICAL VENTILATOR , AC MODE SETTING WELL TOLERATED . NO SOB NO DISTRESS NOTED NO FACIAL GRIMACES NOTED , SR ON THE MONITOR , V/S STABLE AFEBRILE SATING 99% , ALL DUE MEDS GIVEN, ALL NEEDS ATTENDED TOO CALL LIGHT WITHIN REACH , HOB ELEVATED FOR ASPIRATION PRECAUTION, SUCTIONED SECRETION DONE AND PRN ,GT CLAMP PTS ON NPO STATUS ON RIGHT UPPER ARM G#20 INTACT AND PATENT IVF OF D5 1/2 NS +20MEQ AT 75 CC/HR ON PROGRESS .F/C INTACT AND PATENT DRAINING WITH YELLOWISH URINE OUTPUT .KEPT PTS CLEAN DRY AND COMFORTABLE. WILL CONTINUE TO MONITOR PTS.
[2016-09-04] MEDS ORDERED: SECONDARY IV SET 1 EA INFUS.SET MC ONE (19:57)
[2016-09-04] MEDS: MICAFUNGIN SODIUM 100 MG in IV NS 0.9% 100 ML IV SCH (19:59)
[2016-09-04 20:00] VITALS: BP_SYST 137; BP_SYST 143; BP_DIAS 62; BP_DIAS 98
--- NOTE | 2016-09-04 20:00 | NUR ---
HUI RN NOTES RECEIVED PTS ON BED , OBTUNDED , REMAINS ON MECHANICAL VENT , ON AC MODE SETTINGS WELL TOLERATED .SATING 99% V/S STABLE AFEBRILE .ONSR ON THE MONITOR, ALL DUE MEDS GIVEN ORDERED , ALL NEEDS ATTENDED TOO CALL LIGHT WITHIN REACH . KEPT PTS SAFE CLEAN DRY AND COMFORTABLE , WITH IVF OF NS AT 50CC/HR ON PROGRESS , IV HEPLOCK ON RIGHT HAND G#20 AND RAC G 20 INTACT AND PATENT ,GT FEEDING OF GLYTROL AT 55CC/HR TOLERATING WELL NO RESIDUAL NOTED , F/C INTACT AND PATENT DRAINING WITH YELLOWISH URINE OUTPUT. HOB ELEVATED FOR ASPIRATION PRECAUTION , TURNED AND REPOSITIONED , SUCTIONED SECRETIONS DONE .WILL CONTINUE TO MONITOR PTS. Addendum: 09/05/16 at 0117 by JAMEY POWELL RN PLS DISREGARD THIS ABOVE CHARTING . NOT INTENDED FOR THIS PTS.
[2016-09-04] MEDS ORDERED: MEROPENEM 1 G in IV NS 0.9% 100 ML IV SCH (21:00)
[2016-09-04] MEDS: INSULIN REGULAR, HUMAN 100 UNIT/ML 3 ML VIAL SQ PRN (23:54)
--- NOTE | 2016-09-04 23:55 | NUR ---
HUI RN NOTES BLOOD SUGAR FOR 12MN IS 109 - NO COVERAGE GIVEN , PTS ON IV FLUIDS ON NPO STATUS , WILL CHECK BLOOD SUGAR AGAIN IN AM
[2016-09-05] VITALS: BP 134/78
[2016-09-05 04:00] VITALS: BP 145/76
[2016-09-05] MEDS: PROPRANOLOL HCL 40 MG TABLET GT SCH ×3 (05:00→21:00)
[2016-09-05] MEDS: ERYTHROMYCIN ETHYLSUCCINATE 200 MG/5 ML SUSPENSION GT SCH ×3 (05:33→16:57)
[2016-09-05] MEDS: BLOOD SUGAR DIAGNOSTIC 1 EACH STRIP IN SCH ×3 (06:15→17:54)
--- NOTE | 2016-09-05 06:36 | NUR ---
BLOOD SUGAR AT 6AM IS 104 NO COVERAGE GIVEN PER SLIDING SCALE , PTS REMAINS ON VENT AC SETTING WELL TOLERATED , V/S STABLE AFEBRILE , PTS REMAINS NPO , WILL ENDORSE TO RN DAY SHIFT FOR CONTINUITY OF CARE.
[2016-09-05 06:43] LABS: BASOPHILS % (AUTO) 0.2 % (0.0-2.0); EOSINOPHILS # (AUTO) 0.2 /CMM (0.0-0.7); EOSINOPHILS % (AUTO) 2.9 % (0.0-6.0); HEMATOCRIT 31 % (39-51); HEMOGLOBIN 9.8 g/dL (13.5-17.5); LYMPHOCYTES # (AUTO) 1.3 /CMM (0.8-4.8); LYMPHOCYTES % (AUTO) 17.9 % (20.0-44.0); MEAN CORPUSCULAR HEMOGLOBIN 29 PG (26.0-33.0); MEAN CORPUSCULAR HGB CONC 32 g/dl (31.0-36.0); MEAN CORPUSCULAR VOLUME 91 fL (80-96); MONOCYTES # (AUTO) 0.9 /CMM (0.1-1.30); MONOCYTES % (AUTO) 12.6 % (2.0-12.0); NEUTROPHILS # (AUTO) 4.7 /CMM (1.8-8.9); NEUTROPHILS % (AUTO) 66.4 % (43.0-81.0); PLATELET COUNT (AUTO) 231 /CMM (150-450); RDW COEFFICIENT OF VARIATION 15.5 (11.5-15.0); RED BLOOD CELL COUNT(AUTO) 3.35 MIL/uL (4.5-6.0); WHITE BLOOD COUNT (AUTO) 7.1 K/uL (4.3-11.0)
[2016-09-05 07:50] LABS: CALCIUM, SERUM 8.8 mg/dL (8.5-10.1); CREATININE 2.2 mg/dL (0.6-1.3); MAGNESIUM 1.6 mg/dL (1.8-2.4); PHOSPHORUS 3.2 mg/dL (2.5-4.9); POTASSIUM 3.7 mmol/L (3.5-5.1)
[2016-09-05 08:00] VITALS: BP 135/78
[2016-09-05] MEDS: LEVETIRACETAM SOL (5 ML) 100 MG/ML UDC GT SCH ×2 (08:21→21:00)
[2016-09-05] MEDS: LEVOTHYROXINE SODIUM 25 MCG TABLET GT SCH (08:21)
[2016-09-05] MEDS: PROSOURCE / PROSTAT (PYXIS) 30 ML UDC GT SCH ×2 (08:21→16:57)
[2016-09-05] MEDS: VIT B CMPLX 3/FA/VIT C/BIOTIN 1 TAB TABLET GT SCH (08:21)
[2016-09-05] MEDS: CEFEPIME 2 GM in IV D5W 100 ML IV SCH ×2 (08:26→22:31)
[2016-09-05] MEDS: Z GUARD REMEDY 2 OZ OINT TP SCH (08:26)
[2016-09-05] MEDS: Potassium Chloride 20 MEQ in IV D5/0.45 NACL 1,000 ML IV PRN (08:26)
[2016-09-05] MEDS: NEOMY SULF/BACITRAC ZN/POLY 15 GM TUBE TP SCH (08:26)
[2016-09-05] MEDS: PHENYTOIN SODIUM IV 50 MG/ML VIAL IV SCH ×2 (08:26→22:31)
[2016-09-05] MEDS: HEPARIN SODIUM, PORCINE 5000 UNITS/1 ML VIAL SQ SCH ×2 (08:34→22:31)
[2016-09-05] MEDS ORDERED: Magnesium 1GM/D5W 100ML PREMIX PIGGYBACK IV ONE (09:30)
[2016-09-05] MEDS: PANTOPRAZOLE 40 MG VIAL IV SCH (09:48)
[2016-09-05 12:00] VITALS: BP 138/78
[2016-09-05 16:00] VITALS: BP 129/78
[2016-09-05] MEDS: MICAFUNGIN SODIUM 100 MG in IV NS 0.9% 100 ML IV SCH (19:04)
--- NOTE | 2016-09-05 19:15 | NUR ---
RN INITIAL NOTES RECEIVED PATIENT IN BED, AWAKE, OBTUNDED WITH POOR EYE TRACKING OBSERVED. PATIENT ON TELE SHOWING SR WITH HR OF 88. ON MECH VENT VIA TRACH, C/D/I, MIDLINE. TOLERATING CURRENT SETTINGS WELL WITH NO DISTRESS. SATURATION AT 100%. AIRWAY SUCTIONED NEEDED. WITH ANGELIQUE G20 PIV, FLUSHED AND PATENT, IVF OF D5 1/2NS + 20mEq KCL RUNNING AT 75CC/HR ORDERED. PEG IN PLACE, CLAMPED, SKIN INTEGRITY INTACT. F/C INTACT AND DRAINING WELL WITH CLEAR, YELLOW URINE. PATIENT REPOSITIONED FOR COMFORT. SAFETY AND COMFORT ENSURED. BED IN LOW AND LOCKED POSITION. CALL LIGHT IN REACH. WILL MONITOR.
[2016-09-05 20:00] VITALS: BP 142/79
[2016-09-06] VITALS (7 sets, daily range): BP systolic 119–144; BP diastolic 66–80
[2016-09-06] MEDS: BLOOD SUGAR DIAGNOSTIC 1 EACH STRIP IN SCH ×4 (00:22→18:23)
[2016-09-06] MEDS: PROPRANOLOL HCL 40 MG TABLET GT SCH ×3 (05:00→21:00)
[2016-09-06] MEDS: ERYTHROMYCIN ETHYLSUCCINATE 200 MG/5 ML SUSPENSION GT SCH ×4 (05:27→15:45)
[2016-09-06] MEDS ORDERED: SECONDARY IV SET 1 EA INFUS.SET MC ONE (05:35)
[2016-09-06] MEDS ORDERED: IV PREMIX D5 1/2NS + KCL 1,000 ML IV ONE (05:40)
[2016-09-06] MEDS ORDERED: VANCOMYCIN 1 GM in IV D5W 250 ML IV SCH (06:00)
[2016-09-06] MEDS: Potassium Chloride 20 MEQ in IV D5/0.45 NACL 1,000 ML IV PRN ×2 (06:03→21:12)
--- NOTE | 2016-09-06 06:44 | NUR ---
RN CLOSING NOTES PATIENT IN BED, RESTING COMFORTABLY. NO ACUTE DISTRESS OBSERVED OVERNIGHT. TOLERATED MECH VENT SETTINGS WELL, NO DISTRESS. AIRWAY SUCTIONED NEEDED. REMAINS NPO. F/C CHANGED ORDERED BY ID, INTACT AND PATENT. IVF INFUSING WELL ORDERED ON PATIENT'S ANGELIQUE PIV, FLUSHED AND PATENT, NO SIGNS OF INFECTION. ALL DUE MEDS GIVEN ORDERED. SAFETY AND COMFORT ENSURED. PATIENT TURNED AND REPOSITIONED. NEEDS ANTICIPATED AND MET. WILL ENDORSE ACCORDINGLY FOR CONTINUITY OF CARE. Addendum: 09/06/16 at 0656 by MIGUEL MARTIN RN REMAINS SR AT 80.
--- NOTE | 2016-09-06 08:00 | NUR ---
TELE1/RN AM SHIFT INITIAL NOTES RECEIVED PT AWAKE IN BED, PT OPEN EYES, SEEMS TO TRACTS. OBTUNDED. NO GRIMACING NOTED, NO ACUTE CHANGE OF CONDITION NOTED. ON DECEREBRATE POSTURING. ON VENTILATOR SET AT PRESCRIBED RATES, SATURATING @ 100%, LUNG SOUNDS CLEAR. ON TELE WITH SINUS RHYTHM, HR 93. WITH ON GOING IV INFUSION OF D51/2NS WITH 20MEQ KCL @ 75CC/HR, IV SITE PATENT WITH NO S/S OF INFECTION. RAMON CATHETER INTACT, WITH CLEAR YELLOW URINE OUTPUT. PT ON STRICT NPO, GT-CLAMP FOR UNSCHEDULED J-TUBE PLACEMENT. PT IS COMFORTABLE AT THIS TIME. SCHEDULED AM MEDS TO BE GIVEN. CL WITHIN REACHED AND SAFETY MAINTAINED. ON GOING MONITORING.
[2016-09-06] MEDS: LEVOTHYROXINE SODIUM 25 MCG TABLET GT SCH (08:14)
[2016-09-06] MEDS: PROSOURCE / PROSTAT (PYXIS) 30 ML UDC GT SCH ×2 (08:14→15:44)
[2016-09-06] MEDS: LEVETIRACETAM SOL (5 ML) 100 MG/ML UDC GT SCH ×2 (08:14→21:00)
[2016-09-06] MEDS: VIT B CMPLX 3/FA/VIT C/BIOTIN 1 TAB TABLET GT SCH (08:14)
[2016-09-06 08:40] LABS: BASOPHILS % (AUTO) 0.4 % (0.0-2.0); EOSINOPHILS # (AUTO) 0.2 /CMM (0.0-0.7); EOSINOPHILS % (AUTO) 3.4 % (0.0-6.0); HEMATOCRIT 30 % (39-51); HEMOGLOBIN 10.1 g/dL (13.5-17.5); LYMPHOCYTES % (AUTO) 15.6 % (20.0-44.0); MEAN CORPUSCULAR HEMOGLOBIN 30 PG (26.0-33.0); MEAN CORPUSCULAR HGB CONC 34 g/dl (31.0-36.0); MEAN CORPUSCULAR VOLUME 90 fL (80-96); MONOCYTES # (AUTO) 0.5 /CMM (0.1-1.30); MONOCYTES % (AUTO) 8.3 % (2.0-12.0); NEUTROPHILS # (AUTO) 4.5 /CMM (1.8-8.9); NEUTROPHILS % (AUTO) 72.3 % (43.0-81.0); PLATELET COUNT (AUTO) 227 /CMM (150-450); RDW COEFFICIENT OF VARIATION 15.7 (11.5-15.0); RED BLOOD CELL COUNT(AUTO) 3.33 MIL/uL (4.5-6.0); WHITE BLOOD COUNT (AUTO) 6.2 K/uL (4.3-11.0)
[2016-09-06] MEDS: CEFEPIME 2 GM in IV D5W 100 ML IV SCH ×2 (08:42→21:12)
[2016-09-06] MEDS: PANTOPRAZOLE 40 MG VIAL IV SCH (08:45)
[2016-09-06] MEDS: PHENYTOIN SODIUM IV 50 MG/ML VIAL IV SCH ×2 (08:45→21:12)
[2016-09-06] MEDS: NEOMY SULF/BACITRAC ZN/POLY 15 GM TUBE TP SCH (08:46)
[2016-09-06] MEDS: Z GUARD REMEDY 2 OZ OINT TP SCH (08:47)
[2016-09-06] MEDS: HEPARIN SODIUM, PORCINE 5000 UNITS/1 ML VIAL SQ SCH ×2 (08:47→21:00)
[2016-09-06 09:09] LABS: BILIRUBIN,TOTAL 0.2 mg/dL (0.2-1.0); CALCIUM, SERUM 9.1 mg/dL (8.5-10.1); MAGNESIUM 1.5 mg/dL (1.8-2.4); PHOSPHORUS 3.2 mg/dL (2.5-4.9); POTASSIUM 3.8 mmol/L (3.5-5.1); TOTAL PROTEIN, SERUM 5.8 g/dL (6.4-8.2)
--- NOTE | 2016-09-06 12:00 | NUR ---
TELE1/RN NOON ROUNDS NO CHANGE OF CONDITION. MONITORING CONTINUED.
[2016-09-06] MEDS: MICAFUNGIN SODIUM 100 MG in IV NS 0.9% 100 ML IV SCH (18:23)
--- NOTE | 2016-09-06 19:31 | NUR ---
TELE1/RN AM SHIFT END NOTES NO ACUTE CHANGE OF CONDITION NOTED DURING THE SHIFT. ALL NEEDS MET. PT ENDORSED TO PM NURSE TO CONTINUE CARE. CL WITHIN REACHED AND SAFETY MAINTAINED.
--- NOTE | 2016-09-06 20:00 | NUR ---
NIGHT SUPERVISOR NOTE PT IN BED OBTUNDED, EYES OPEN. ON VENT, TRACH PORTEX 8, AC 16, TV 500, FIO2 30% PEEP 5. SUCTIONED HIM NEEDED. NO DISTRESS OR DISCOMFORT NOTED. GT INTACT AND PATENT CLAMPED. PT IS REMAIN NPO. ON TELE SR HR 89. VANCO INFUSING AT THIS TIME ANGELIQUE #20 G NO S/S OF INFILTRATION NOTED. F/C INTACT AND PATENT DRAINING YELLOWISH COLOR URINE. NO S/S OF HYPO OR HYPERGLYCEMIA NOTED. REPOSITION HIM FOR SKIN MANAGEMENT. SIDE RAILS UP X 3 AND CALL LIGHT WITHIN REACH. VSS. CONTINUE TO MONITOR HIM.
[2016-09-06] MEDS ORDERED: HEPARIN SODIUM, PORCINE 5000 UNITS/1 ML VIAL ONE (21:39)
[2016-09-07] VITALS (7 sets, daily range): BP systolic 116–147; BP diastolic 68–88
[2016-09-07] MEDS: BLOOD SUGAR DIAGNOSTIC 1 EACH STRIP IN SCH ×5 (00:05→23:59)
[2016-09-07] MEDS: PROPRANOLOL HCL 40 MG TABLET GT SCH ×3 (05:00→21:00)
[2016-09-07] MEDS: ERYTHROMYCIN ETHYLSUCCINATE 200 MG/5 ML SUSPENSION GT SCH ×4 (05:03→17:23)
--- NOTE | 2016-09-07 06:54 | NUR ---
OPHTHALMOLOGIST NOTE NO CHANGE IN CONDITION. ON TELE SR HR 81. NO DISTRESS OR DISCOMFORT NOTED. IVF INFUSING WELL, NO S/S OF INFILTRATION NOTED. SIDE RAILS UP X 2 AND CALL LIGHT WITHIN REACH. WILL ENDORSE TO DAY SHIFT NURSE FOR CONTINUE TO CARE.
--- NOTE | 2016-09-07 07:15 | NUR ---
RN INITIAL NOTE PT WAS RECEIVED IN BED RESTING COMFORTABLY, OBTUNDED. PT HAS TRACH PORTEX #8, AC-16, TV -500, FI02-30%, PEEP 5. TOLERATING SETTINGS WELL. NO S/S OF RESPIRATORY DISTRESS OR SOB. SINUS RHYTHM ON TELE MONITOR. GTUBE CLAMPED. RIGHT UPPER MIDLINE FLUSHED AND PATENT. RUNNING D5 1/2 NS, k= RUNNING AT 75ML/HR. RAMON CATHETER DRAINING TO GRAVITY SKIN WARM AND DRY TO TOUCH. SAFETY PRECAUTIONS OBSERVED AT ALL TIMES. BED IN LOCKED, LOW POSITION. ALARMS ON. SIDE RAILS UP. CALL LIGHT WITHIN EASY REACH. WILL CONTINUE TO MONITOR.
--- NOTE | 2016-09-07 07:17 | NUR ---
Received male liliane pt on mechanical vent. Pt liliane is secure. Vent is plugged into a red outlet, alarms are set and audible. BVM is at bedside. Addendum: 09/07/16 at 1124 by PAU GARVIN RT Amended: Links added.
[2016-09-07 07:51] LABS: CALCIUM, SERUM 9.2 mg/dL (8.5-10.1); CREATININE 1.9 mg/dL (0.6-1.3); POTASSIUM 4.3 mmol/L (3.5-5.1)
[2016-09-07] MEDS: LEVETIRACETAM SOL (5 ML) 100 MG/ML UDC GT SCH ×2 (09:38→21:00)
[2016-09-07] MEDS: CEFEPIME 2 GM in IV D5W 100 ML IV SCH ×3 (09:38→22:04)
[2016-09-07] MEDS: LEVOTHYROXINE SODIUM 25 MCG TABLET GT SCH (09:38)
[2016-09-07] MEDS: PHENYTOIN SODIUM IV 50 MG/ML VIAL IV SCH ×2 (09:38→21:13)
[2016-09-07] MEDS: NEOMY SULF/BACITRAC ZN/POLY 15 GM TUBE TP SCH (09:38)
[2016-09-07] MEDS: PANTOPRAZOLE 40 MG VIAL IV SCH (09:38)
[2016-09-07] MEDS: VIT B CMPLX 3/FA/VIT C/BIOTIN 1 TAB TABLET GT SCH (09:38)
[2016-09-07] MEDS: PROSOURCE / PROSTAT (PYXIS) 30 ML UDC GT SCH ×2 (09:38→17:23)
[2016-09-07] MEDS: Z GUARD REMEDY 2 OZ OINT TP SCH (09:39)
[2016-09-07] MEDS: Potassium Chloride 20 MEQ in IV D5/0.45 NACL 1,000 ML IV PRN (13:33)
[2016-09-07] MEDS: MICAFUNGIN SODIUM 100 MG in IV NS 0.9% 100 ML IV SCH (18:41)
--- NOTE | 2016-09-07 19:02 | NUR ---
RN CLOSING NOTE PT RESTING IN BED COMFORTABLY. ALL MD ORDERS CARRIED OUT. PT KEPT CLEAN AND DRY. SAFETY MEASURES IMPLEMENTED AT ALL TIMES. WILL GIVE REPORT TO PM RN FOR LAUREN.
--- NOTE | 2016-09-07 20:00 | NUR ---
COUNTRY MANAGER NOTE PT IN BED OBTUNDED, EYES OPEN. ON VENT, TRACH PORTEX 8, AC 16, TV 500, FIO2 30% PEEP 5. TOLERATING THE SETTINGS WELL. SUCTIONED HIM NEEDED. NO DISTRESS OR DISCOMFORT NOTED. GT INTACT AND PATENT CLAMPED. PT IS REMAIN NPO. ON TELE SR HR 90. IVF INFUSING WELL AT THIS TIME ANGELIQUE #20 G NO S/S OF INFILTRATION NOTED. F/C INTACT AND PATENT DRAINING YELLOWISH COLOR URINE. NO S/S OF HYPO OR HYPERGLYCEMIA NOTED. REPOSITION HIM FOR SKIN MANAGEMENT. SIDE RAILS UP X 3 AND CALL LIGHT WITHIN REACH. VSS. CONTINUE TO MONITOR HIM.
--- NOTE | 2016-09-07 20:30 | NUR ---
C APPLICATION DEVELOPER NOTE RAHUL VALENTINA BROTHER GAVE CONSENT FOR AM PORCEDURE OVER PHONE. WITNESSED BY OTHER NURSE MARCIA.
--- NOTE | 2016-09-07 21:00 | NUR ---
SALES ADMINISTRATOR NOTE CALLED DR PATRICIO REGARDING MAG 1.6 AND FAMILY DISPUTE ON SURGERY PROCEDURE, ACCORDING TO CHARGED NURSE DAUGHTER DON'T WANT ANY TO BE DONE, PER MD HE WILL TALK TO HER.
[2016-09-07] MEDS ORDERED: IV D5W 100 ML IV ONE (21:24)
[2016-09-07] MEDS ORDERED: CEFEPIME 1 GM VIAL ONE (21:47)
--- NOTE | 2016-09-07 22:00 | NUR ---
CREATIVE RECRUITER NOTE RT ARM NOTED WITH SWELLING, DC THE IV SITE AND SECURED THE SITE WITH 2X2 GAUZE. REINSERTED NEW LINE #20 G BY CHARGE NURSE JOSE ROBERTO WITH GOOD BACK FLOW OF BLOOD. RESUMED IVF. NO S/S OF INFILTRATION NOTED.
[2016-09-07] MEDS ORDERED: SECONDARY IV SET 1 EA INFUS.SET MC ONE (22:01)
[2016-09-08] VITALS (7 sets, daily range): BP systolic 108–149; BP diastolic 66–86
[2016-09-08] MEDS: PROPRANOLOL HCL 40 MG TABLET GT SCH ×3 (04:49→21:00)
[2016-09-08] MEDS: ERYTHROMYCIN ETHYLSUCCINATE 200 MG/5 ML SUSPENSION GT SCH ×5 (05:16→23:38)
[2016-09-08] MEDS: BLOOD SUGAR DIAGNOSTIC 1 EACH STRIP IN SCH ×4 (05:29→23:38)
[2016-09-08] MEDS: Potassium Chloride 20 MEQ in IV D5/0.45 NACL 1,000 ML IV PRN (05:33)
--- NOTE | 2016-09-08 05:46 | NUR ---
DIRECTOR OF COUNTERINTELLIGENCE NOTE DR PATRICIO DIDN'T CALL DURING THE SHIFT. WILL RELAY THE INFO TO DAY SHIFT NURSE TO F/U WITH .
[2016-09-08 05:59] LABS: BASOPHILS % (AUTO) 0.2 % (0.0-2.0); EOSINOPHILS # (AUTO) 0.3 /CMM (0.0-0.7); EOSINOPHILS % (AUTO) 3.1 % (0.0-6.0); HEMATOCRIT 35 % (39-51); HEMOGLOBIN 11.6 g/dL (13.5-17.5); LYMPHOCYTES # (AUTO) 1.3 /CMM (0.8-4.8); LYMPHOCYTES % (AUTO) 14.2 % (20.0-44.0); MEAN CORPUSCULAR HEMOGLOBIN 30 PG (26.0-33.0); MEAN CORPUSCULAR HGB CONC 33 g/dl (31.0-36.0); MEAN CORPUSCULAR VOLUME 90 fL (80-96); MONOCYTES # (AUTO) 1.1 /CMM (0.1-1.30); MONOCYTES % (AUTO) 11.5 % (2.0-12.0); NEUTROPHILS # (AUTO) 6.5 /CMM (1.8-8.9); PLATELET COUNT (AUTO) 266 /CMM (150-450); RDW COEFFICIENT OF VARIATION 15.8 (11.5-15.0); RED BLOOD CELL COUNT(AUTO) 3.84 MIL/uL (4.5-6.0); WHITE BLOOD COUNT (AUTO) 9.2 K/uL (4.3-11.0)
[2016-09-08 06:19] LABS: INR 1.37 (0.87-1.13)
[2016-09-08] MEDS: VANCOMYCIN 1 GM in IV D5W 250 ML IV SCH (06:20)
--- NOTE | 2016-09-08 06:28 | NUR ---
GEOSCIENCES PROFESSOR NOTE PT IN BED OBTUNDED. NO DISTRESS OR DISCOMFORT NOTED. NO S/S OF PAIN NOTED. TOLERATING VENT SETTINGS WELL, SUCTIONED HIM FREQUENTLY, SMALL WHITISH SECRETIONS NOTED. F/C INTACT AND PATENT DRAINING YELLOWISH COLOR URINE. IVF INFUSING WELL, NO S/S OF INFILTRATION NOTED. GT REMAIN CLAMPED. PT IS NPO. REPOSITION HIM Q2H. KEPT HIM DRY AND CLEAN. ALL NEEDS ATTENDED. WILL ENDORSE TO DAY SHIFT NURSE FOR CONTINUE TO CARE. Addendum: 09/08/16 at 0632 by SEBASTIÁN GARCIA RN ON TELE SR HR 90
--- NOTE | 2016-09-08 07:30 | NUR ---
RN INITIAL NOTES: Received patient on bed during rounds, awake, non-verbal, not able to make needs known, needs anticipated and attended. With Vent and Trach in placed with the ff settings AC16, TV500 FIO2 30% PEEP5 saturating well to 100%. With Peg tube in placed, and patent, clamped. With Left Upper arm G20 flushed with NS and patent, with IVF D5 1/2 NS +20meqKCL at 75cc/hr. NPO maintained. NO SOB, No LOC, respirations are even and unlabored, no acute distress noted. Kept clean and dry. Provided safety and comfort measures. Bed low and locked position, fall precaution observed. Will turn and reposition, offload heels as per protocol. HOB elevated, aspiration precaution observed. For laparoscopic vs open feeding Jejunostomy today at 1230pm with Dr. Preston, consent up signed by Brother. To continue to monitor accordingly.
[2016-09-08 08:07] LABS: CALCIUM, SERUM 9.3 mg/dL (8.5-10.1); POTASSIUM 4.5 mmol/L (3.5-5.1)
--- NOTE | 2016-09-08 08:36 | NUR ---
paged dr. gerardo diaz regarding family issue consent,per alexis notify johanmandian ,spoke w/ prosper and verbalized to wait for dr. stevens and let her talk to daughter.explained that naye diaz surgeon spoke w/ riova daughter and she is not agreeing with surgery ,paged hilda and waiting for response.
[2016-09-08] MEDS: PROSOURCE / PROSTAT (PYXIS) 30 ML UDC GT SCH ×2 (08:48→17:15)
[2016-09-08] MEDS: VIT B CMPLX 3/FA/VIT C/BIOTIN 1 TAB TABLET GT SCH (08:48)
[2016-09-08] MEDS: LEVETIRACETAM SOL (5 ML) 100 MG/ML UDC GT SCH ×2 (08:48→21:00)
[2016-09-08] MEDS: LEVOTHYROXINE SODIUM 25 MCG TABLET GT SCH (08:48)
[2016-09-08] MEDS: CEFEPIME 2 GM in IV D5W 100 ML IV SCH ×2 (09:22→21:39)
[2016-09-08] MEDS: PHENYTOIN SODIUM IV 50 MG/ML VIAL IV SCH ×2 (09:22→21:40)
[2016-09-08] MEDS: NEOMY SULF/BACITRAC ZN/POLY 15 GM TUBE TP SCH (09:30)
[2016-09-08] MEDS: Z GUARD REMEDY 2 OZ OINT TP SCH (09:30)
--- NOTE | 2016-09-08 09:30 | NUR ---
RN NOTES: Spoke with Dr. Kajal Salmon and noted that brother Bala is at the bedside and wants to speak with her, as per Dr. Kajal Salmon she will come later today to make rounds and will call then once in the unit. Noted by Or that patient will not go for Procedure today as the daughter does not agree with it and she is the DPOA. Requested by CN for Bioethics.
--- NOTE | 2016-09-08 09:51 | NUR ---
RN NOTES: Noted by Pharmacist Anita Mg+ level is 1.3 and will review.
[2016-09-08] MEDS: PANTOPRAZOLE 40 MG VIAL IV SCH ×2 (10:58→21:40)
[2016-09-08] MEDS ORDERED: SECONDARY IV SET 1 EA INFUS.SET MC ONE (12:01)
[2016-09-08] MEDS: Magnesium 1GM/D5W 100ML PREMIX 100 ML IV SCH ×2 (12:03→14:15)
[2016-09-08] MEDS: INSULIN REGULAR, HUMAN 100 UNIT/ML 3 ML VIAL SQ PRN ×2 (12:08→17:17)
--- NOTE | 2016-09-08 14:26 | NUR ---
RN NOTES: Seen and examined by Dr. Kajal Salmon with orders noted and carried out. Noted Black Tarry stool, specimen for stool occult blood sent pending result. Received a call from daughter Isidra that she agree to do the procedure Laparoscopic vs open feeding Jejunostomy consent up witnessed by JOSE RAFAEL UMAÑA, will inform Dr. Preston.
--- NOTE | 2016-09-08 14:37 | NUR ---
RN NOTES: If occult blood is positive as per Dr. Salmon May give Protonix 40mgs IV Q12Hrs.
--- NOTE | 2016-09-08 14:43 | NUR ---
RN NOTES: Paged Dr. José Manuel Preston informing daughter Isidra consented to do the Laparoscopic vs Open feeding Jejunostomy, a/w for call back.
--- NOTE | 2016-09-08 14:48 | NUR ---
RN NOTES: Received a call from Dr. Preston, noted that daughter agreed for procedure, as per MD he noted to schedule and let us know.
--- NOTE | 2016-09-08 14:51 | NUR ---
daughter vicki wanted dnr,per dr. hilda diaz need to adress code status.
--- NOTE | 2016-09-08 17:55 | NUR ---
RT END OF THE SHIFT: PT. 60 Y OLD MALE REMAIN TRACHED, ON VENT WITH NOTED SETTINGS, ALARMS ARE SET AND FUNCTIONAL. AND B/S BILATERALLY RALES, GARCIA'XD FOR MINIMAL AMT OF SECRETION, NO CHANGES T/O THE SHIFT. , HME CHANGED AND MANAGER ELECTRICAL DONE. EQUAL CHEST RISE NOTED. PT. REMAIN STABLE. VENT PLUGGED INTO RED OUTLET. REPORT WILL PASS TO PM SHIFT Addendum: 09/08/16 at 1755 by NADEEN LANTIGUA RT Amended: Links added.
--- NOTE | 2016-09-08 18:57 | NUR ---
RN NOTES: Patient remain stable within shift, no signs and symptoms of distress noted. Noted residual of 60cc at this time, gtube patency checked and patent. With IV Hydration infusing well. HOB elevated, aspiration precaution observed. Suction secretions PRN. Provided safety and comfort measures. A/ w for OR schedule for procedure. To endorsed to next shift for continuity of care.
[2016-09-08] MEDS: MICAFUNGIN SODIUM 100 MG in IV NS 0.9% 100 ML IV SCH (19:04)
--- NOTE | 2016-09-08 19:33 | NUR ---
DIRECTOR OF CORPORATE SPONSORSHIPS NOTE PT IN BED OBTUNDED WITH EYES OPEN. NO SOB, NO DISTRESS OR DISCOMFORT NOTED. CONTINUE ON TRACH/VENT TOLERATING THE SETTING WELLS. GETTING IV ATB AT THIS TIME. NO S/S OF INFILTRATION NOTED. GT CLAMPED INTACT AND PATENT. PT CONTINUE TO BE NPO. F/C INTACT AND PATENT DRAINING YELLOWISH COLOR URINE. REPOSITION HIM FOR SKIN MANAGEMENT, SIDE RAILS UP X 3 AND CALL LIGHT WITHIN REACH. VSS. CONTINUE TO MONITOR HIM.
--- NOTE | 2016-09-08 19:39 | NUR ---
SUPERINTENDENT CIRCUS NOTE ON TELE SR HR 84.
[2016-09-09] VITALS (8 sets, daily range): BP systolic 112–155; BP diastolic 71–87
--- NOTE | 2016-09-09 | NUR ---
BEADING SAWYER NOTE SUCTIONED PT FREQUENTLY, SMALL LIGHT THICK YELLOWISH SECRETION NOTED. REPOSITION HIM Q2H. KEPT HIM DRY AND CLEAN. ALL NEEDS ATTENDED. ON TELE SR HR 84
[2016-09-09] MEDS: Potassium Chloride 20 MEQ in IV D5/0.45 NACL 1,000 ML IV PRN ×2 (00:23→18:36)
[2016-09-09] MEDS: PROPRANOLOL HCL 40 MG TABLET GT SCH ×3 (05:00→21:00)
[2016-09-09] MEDS: ERYTHROMYCIN ETHYLSUCCINATE 200 MG/5 ML SUSPENSION GT SCH ×3 (05:26→18:00)
[2016-09-09] MEDS: BLOOD SUGAR DIAGNOSTIC 1 EACH STRIP IN SCH ×3 (05:26→18:27)
--- NOTE | 2016-09-09 06:33 | NUR ---
MANAGER PRIVACY NOTE NO CHANGE IN CONDITION. NO DISTRESS OR DISCOMFORT NOTED. NO SS OF PAIN NOTED. IVF INFUSING WELL, NO S/S OF INFILTRATION NOTED. F/C INTACT AND PATENT DRAINING YELLOWISH COLOR URINE. GT INTACT AND PATENT CLAMPED. REPOSITION HIM Q2H. KEPT HIM DRY AND CLEAN. ALL NEEDS ATTENDED. SIDE RAILS UP X 3 AND CALL LIGHT WITHIN REACH. WILL ENDORSE TO DAY SHIFT NURSE FOR CONTINUE TO CARE.
[2016-09-09 06:37] LABS: BASOPHILS % (AUTO) 0.1 % (0.0-2.0); EOSINOPHILS # (AUTO) 0.3 /CMM (0.0-0.7); EOSINOPHILS % (AUTO) 2.6 % (0.0-6.0); HEMATOCRIT 33 % (39-51); LYMPHOCYTES # (AUTO) 1.5 /CMM (0.8-4.8); LYMPHOCYTES % (AUTO) 14.2 % (20.0-44.0); MEAN CORPUSCULAR HEMOGLOBIN 30 PG (26.0-33.0); MEAN CORPUSCULAR HGB CONC 33 g/dl (31.0-36.0); MEAN CORPUSCULAR VOLUME 89 fL (80-96); MONOCYTES # (AUTO) 1.6 /CMM (0.1-1.30); MONOCYTES % (AUTO) 15.1 % (2.0-12.0); NEUTROPHILS # (AUTO) 7.2 /CMM (1.8-8.9); PLATELET COUNT (AUTO) 298 /CMM (150-450); WHITE BLOOD COUNT (AUTO) 10.6 K/uL (4.3-11.0)
[2016-09-09 07:06] LABS: CALCIUM, SERUM 9.5 mg/dL (8.5-10.1); CREATININE 1.9 mg/dL (0.6-1.3); MAGNESIUM 1.8 mg/dL (1.8-2.4); PHOSPHORUS 3.4 mg/dL (2.5-4.9); POTASSIUM 4.5 mmol/L (3.5-5.1)
--- NOTE | 2016-09-09 08:00 | NUR ---
MANAGER OF WAREHOUSE AM NOTES: Received patient on bed during rounds, awake, non-verbal, not able to make needs known, needs anticipated and attended. With Vent and Trach in placed with the ff settings AC16, TV500 FIO2 30% PEEP5 saturating well to 100%. With Peg tube in placed, and patent, clamped. With Left Upper arm G20 flushed with NS and patent, with IVF D5 1/2 NS +20meqKCL at 75cc/hr. NPO maintained. NO SOB, No LOC, respirations are even and unlabored, no acute distress noted. Kinney catheter draining clear yellow urine.Will notify DEEPTHI Jaimes SENIOR PL SQL DEVELOPER if we can DC the kinney. Kept clean and dry. Provided safety and comfort measures. Bed low and locked position, fall precaution observed. Will turn and reposition, offload heels as per protocol. HOB elevated, aspiration precaution observed. For pending laparoscopic vs open feeding Jejunostomy to be scheduled with Dr. José Manuel Preston, consent up signed by Brother. To continue to monitor accordingly.
[2016-09-09 08:28] LABS: EOSINOPHILS % (MANUAL) 2 % (0-4); LYMPHOCYTES % (MANUAL) 16 % (16-48); MONOCYTES % (MANUAL) 10 % (0-11.0); NEUTROPHILS % (MANUAL) 72 (42-76)
[2016-09-09 08:29] LABS: PLATELET ESTIMATE ADEQUATE
[2016-09-09] MEDS: LEVOTHYROXINE SODIUM 25 MCG TABLET GT SCH (09:00)
[2016-09-09] MEDS: PROSOURCE / PROSTAT (PYXIS) 30 ML UDC GT SCH ×2 (09:00→17:00)
[2016-09-09] MEDS: VIT B CMPLX 3/FA/VIT C/BIOTIN 1 TAB TABLET GT SCH (09:00)
[2016-09-09] MEDS: LEVETIRACETAM SOL (5 ML) 100 MG/ML UDC GT SCH ×2 (09:00→21:00)
[2016-09-09] MEDS: PANTOPRAZOLE 40 MG VIAL IV SCH ×2 (09:06→21:54)
[2016-09-09] MEDS: PHENYTOIN SODIUM IV 50 MG/ML VIAL IV SCH ×2 (09:06→21:54)
[2016-09-09] MEDS: CEFEPIME 2 GM in IV D5W 100 ML IV SCH ×2 (09:06→21:51)
[2016-09-09] MEDS: NEOMY SULF/BACITRAC ZN/POLY 15 GM TUBE TP SCH (09:07)
[2016-09-09] MEDS: Z GUARD REMEDY 2 OZ OINT TP SCH (09:07)
--- NOTE | 2016-09-09 12:15 | NUR ---
DR. PATRICIO NOTIFIED REGARDING DAUGHTER WISHES TO CHANGE CODE STATUS TO DNR,OBTAINED DNR ORDER.
--- NOTE | 2016-09-09 12:24 | NUR ---
NOTIFIED DR MARISOL PATRICIO OF PT'S ERYTHROMYCIN VIA GT IF THERE'S ANOTHER OPTION OF GIVING IT ATB IV SINCE PT IS ON NPO INCLUDING GT MEDS.DR MARISOL PATRICIO STATED TO HOLD THE ERYTHROMYCIN VIA GT FOR NOW.
[2016-09-09] MEDS: MICAFUNGIN SODIUM 100 MG in IV NS 0.9% 100 ML IV SCH (18:28)
--- NOTE | 2016-09-09 19:30 | NUR ---
RN INITIAL NOTE RECEIVED PT IN NO ACUTE DISTRESS IN BED. PT IS OBTUNDED, PT OPENS EYES BUT IS NON VERBAL. PT IS ON MECHANICAL VENT VIA TRACH. TRACH SITE IS CLEAN DRY AND INTACT. PT IS TOLERATING VENT SETTING WELL. PT IS ON TELE WITH SR ON THE MONITOR.PT HAS LHAND 22G AND LAC 18G THAT ARE CLEAN DRY INTACT AND PATENT WITH SALINE FLUSH. BOTH LINES ARE SALINE LOCKED. BED IN LOW LOCK POSITION WITH RIALS UP X 2. CALL LIGHT WITHIN REACH AND ALL SAFETY MEASURES ENSURED AND CARRIED OUT. WILL CONTINUE TO MONITOR PT.
[2016-09-10] VITALS: BP 143/85
[2016-09-10] MEDS: BLOOD SUGAR DIAGNOSTIC 1 EACH STRIP IN SCH ×5 (00:46→23:35)
[2016-09-10 04:00] VITALS: BP 140/89
[2016-09-10] MEDS ORDERED: IV SET PRIMARY PUMP SET 1 EA INFUS.SET MC ONE (04:36)
[2016-09-10] MEDS: PROPRANOLOL HCL 40 MG TABLET GT SCH ×3 (05:00→21:00)
[2016-09-10] MEDS: ERYTHROMYCIN ETHYLSUCCINATE 200 MG/5 ML SUSPENSION GT SCH ×5 (05:22→23:36)
[2016-09-10] MEDS: VANCOMYCIN 1 GM in IV D5W 250 ML IV SCH (06:00)
--- NOTE | 2016-09-10 06:28 | NUR ---
RN NOTE DID NOT GIVE VANCOMYCIN IV DUE TO VANCO TROUGH IS 23. WILL ENDORSE TO AM RN.
[2016-09-10 08:00] VITALS: BP 144/81
[2016-09-10 08:09] LABS: CALCIUM, SERUM 9.6 mg/dL (8.5-10.1); CREATININE 2.1 mg/dL (0.6-1.3); POTASSIUM 4.5 mmol/L (3.5-5.1)
[2016-09-10] MEDS: Z GUARD REMEDY 2 OZ OINT TP SCH (09:00)
[2016-09-10] MEDS: PROSOURCE / PROSTAT (PYXIS) 30 ML UDC GT SCH ×2 (09:00→17:00)
[2016-09-10] MEDS: LEVETIRACETAM SOL (5 ML) 100 MG/ML UDC GT SCH ×2 (09:00→21:00)
[2016-09-10] MEDS: LEVOTHYROXINE SODIUM 25 MCG TABLET GT SCH (09:00)
[2016-09-10] MEDS: NEOMY SULF/BACITRAC ZN/POLY 15 GM TUBE TP SCH (09:00)
[2016-09-10] MEDS: VIT B CMPLX 3/FA/VIT C/BIOTIN 1 TAB TABLET GT SCH (09:00)
[2016-09-10] MEDS: PANTOPRAZOLE 40 MG VIAL IV SCH ×2 (09:25→21:17)
[2016-09-10] MEDS: PHENYTOIN SODIUM IV 50 MG/ML VIAL IV SCH ×2 (09:25→21:17)
[2016-09-10] MEDS ORDERED: SECONDARY IV SET 1 EA INFUS.SET MC ONE ×2 (09:26→20:02)
[2016-09-10] MEDS: CEFEPIME 2 GM in IV D5W 100 ML IV SCH ×2 (09:29→21:17)
[2016-09-10] MEDS: Potassium Chloride 20 MEQ in IV D5/0.45 NACL 1,000 ML IV PRN (11:08)
[2016-09-10 12:00] VITALS: BP 152/95
[2016-09-10 16:00] VITALS: BP 142/82
[2016-09-10] MEDS ORDERED: FENTANYL PF 100MCG/2ML AMPUL ONE (17:07)
[2016-09-10] MEDS ORDERED: BUPIVACAINE MPF W/EPI 0.25% 30 ML VIAL ONE (17:55)
[2016-09-10] MEDS ORDERED: LIDOCAINE HCL/PF 1% 30 ML SDV ONE (17:55)
[2016-09-10] MEDS: MICAFUNGIN SODIUM 100 MG in IV NS 0.9% 100 ML IV SCH (18:45)
[2016-09-10] MEDS: VANCOMYCIN 0.75 GM in IV D5W 250 ML IV SCH (18:45)
--- NOTE | 2016-09-10 19:40 | NUR ---
RN NOTE RECEIVED PT IN NO ACUTE DISTRESS IN BED. PT HAS 3 SURGICAL INCISIONS THAT ARE CLEAN DRY AND INTACT. PT HAS GTUBE IN PLACE THAT IS CLEAN DRY AND INTACT WITH GREEN STOMACH CONTENT DRAINING WITH GRAVITY. PT HAS JTUBE THAT IS CLEAN DRY INTACT WITH GREEN CONTENT DRAINING WITH GRAVITY. PT IS ON MECHANICAL VENT AND TOLERATING VENT SETTING WELL. TRACH SITE IS CLEAN DRY AND INTACT. BED IN LOW LOCK POSITION WITH RIALS UP X 2. CALL LIGHT WITHIN REACH AND ALL SAFETY MEASURES ENSURED AND CARRIED OUT.
--- NOTE | 2016-09-10 19:40 | NUR ---
RN INITIAL NOTE PT RETURNED FROM SX IN NO ACUTE DISTRESS IN BED.
[2016-09-10] MEDS ORDERED: ANESTHESIA TRAY IN PYXIS 1 EA TRAY MC ONE (19:49)
[2016-09-10 20:00] VITALS: BP 116/96
[2016-09-11] VITALS: BP 156/91
[2016-09-11 04:00] VITALS: BP 143/77
[2016-09-11] MEDS: PROPRANOLOL HCL 40 MG TABLET GT SCH ×3 (05:00→21:55)
[2016-09-11] MEDS ORDERED: IV D5/0.45 NACL 0 ML IV ONE ×2 (05:21→21:53)
[2016-09-11] MEDS ORDERED: IV NS 0.9% 250 ML IV ONE (05:21)
[2016-09-11] MEDS ORDERED: IV SET PRIMARY PUMP SET 1 EA INFUS.SET MC ONE (05:21)
[2016-09-11] MEDS: Potassium Chloride 20 MEQ in IV D5/0.45 NACL 1,000 ML IV PRN (05:28)
--- NOTE | 2016-09-11 05:30 | NUR ---
RN NOTE STARTED NS THROUGH [employer] @ 20ML/HR X 4HOURS PER ORDERS. WILL ENDORSE TO AM JOEL.
[2016-09-11] MEDS: ERYTHROMYCIN ETHYLSUCCINATE 200 MG/5 ML SUSPENSION GT SCH ×4 (05:41→23:48)
[2016-09-11] MEDS: BLOOD SUGAR DIAGNOSTIC 1 EACH STRIP IN SCH ×4 (05:41→23:49)
[2016-09-11 06:42] LABS: CALCIUM, SERUM 9.5 mg/dL (8.5-10.1); CREATININE 2.2 mg/dL (0.6-1.3); POTASSIUM 4.8 mmol/L (3.5-5.1)
--- NOTE | 2016-09-11 07:52 | NUR ---
RT PATIENT REC'D TRACHED ON VENT WITH ORDERED SETTINGS SET BY MD DIEGO CORMIER. VENT ALARMS CHECKED + AUDIBLE. SX'D WITH MOD AMT PALE SEMITHICK SECRETIONS. B/S DIM. AMBU BAG AT HOB. NO DISTRESS AT THIS TIME. CONT CURRENT PLAN OF RESP CARE. Addendum: 09/11/16 at 0754 by ML SQUIRES RT Amended: Links added.
[2016-09-11 08:00] VITALS: BP 152/94
[2016-09-11] MEDS: NEOMY SULF/BACITRAC ZN/POLY 15 GM TUBE TP SCH (09:00)
[2016-09-11] MEDS: Z GUARD REMEDY 2 OZ OINT TP SCH (09:00)
[2016-09-11] MEDS: CEFEPIME 2 GM in IV D5W 100 ML IV SCH ×2 (09:49→21:57)
[2016-09-11] MEDS: PANTOPRAZOLE 40 MG VIAL IV SCH ×2 (09:49→21:37)
[2016-09-11] MEDS: PHENYTOIN SODIUM IV 50 MG/ML VIAL IV SCH ×2 (09:50→21:37)
[2016-09-11] MEDS: LEVOTHYROXINE SODIUM 25 MCG TABLET GT SCH (09:50)
[2016-09-11] MEDS: LEVETIRACETAM SOL (5 ML) 100 MG/ML UDC GT SCH ×2 (09:50→21:37)
[2016-09-11] MEDS: VIT B CMPLX 3/FA/VIT C/BIOTIN 1 TAB TABLET GT SCH (09:50)
[2016-09-11] MEDS: PROSOURCE / PROSTAT (PYXIS) 30 ML UDC GT SCH ×2 (09:51→18:16)
[2016-09-11] MEDS: hydrALAZINE HCL IV 20 MG VIAL IV PRN (12:16)
[2016-09-11] MEDS: chlorproMAZINE HCL 25 MG TABLET GT PRN (13:40)
[2016-09-11] MEDS: INSULIN REGULAR, HUMAN 100 UNIT/ML 3 ML VIAL SQ PRN ×3 (14:01→23:49)
[2016-09-11] MEDS: MORPHINE SULFATE INJ 4 MG/ML DISP.SYRIN IV PRN (14:10)
[2016-09-11 16:37] VITALS: BP 109/77
--- NOTE | 2016-09-11 16:57 | NUR ---
PT HAS HAD HICCUPS AND MEDICATED WITH THORAZINE 50MG AND INCREASED HEART RATE MEDICATED WITH MORPHINE 4MG IVP , G TUBE DRAINING ANMD J TUBE DRAINAGE GREENISH COLORED OUT PUT ABD SOFT , GTUBE CLAMPED
[2016-09-11] MEDS: MICAFUNGIN SODIUM 100 MG in IV NS 0.9% 100 ML IV SCH (18:17)
[2016-09-11 20:00] VITALS: BP 121/79
--- NOTE | 2016-09-11 20:00 | NUR ---
RN INITIAL NOTE; PT ON THE BED OBTUNDED , EYES OPEN, WITHOUT ANY DISTRESS, ON MECH VENT , SETTING ORDERED. SHOWING SR HR 70s ON TELE MONITOR . ROMAN 20 G PERIPHERAL IV INTACT AND PATENT WITH CONTINUE IVF 20 MEQ KCL ON D5 1/2 NS . G TUBE INTACT AND DRAINING , J TUBE INTACT AND PATENT .F/C INTACT AND DRAINING YELLOWISH URINE. BED IN THE LOWEST/LOCKED POSITION , SAFETY MEASURES APPLIED. WILL CONTINUE TO MONITOR .
[2016-09-11] MEDS: HEPARIN SODIUM, PORCINE 5000 UNITS/1 ML VIAL SQ SCH (21:53)
[2016-09-11] MEDS ORDERED: IV PREMIX D5 1/2NS + KCL 1,000 ML IV ONE (23:54)
[2016-09-12] VITALS: BP 127/79
[2016-09-12] MEDS: Potassium Chloride 20 MEQ in IV D5/0.45 NACL 1,000 ML IV PRN (00:20)
[2016-09-12 04:00] VITALS: BP 126/73
[2016-09-12] MEDS: BLOOD SUGAR DIAGNOSTIC 1 EACH STRIP IN SCH ×3 (05:21→17:00)
[2016-09-12] MEDS: ERYTHROMYCIN ETHYLSUCCINATE 200 MG/5 ML SUSPENSION GT SCH ×3 (05:22→17:00)
[2016-09-12] MEDS: PROPRANOLOL HCL 40 MG TABLET GT SCH ×3 (05:22→21:00)
[2016-09-12 06:29] LABS: CALCIUM, SERUM 9.4 mg/dL (8.5-10.1); CREATININE 2.3 mg/dL (0.6-1.3)
--- NOTE | 2016-09-12 07:05 | NUR ---
RN EOS NOTE; PT REMAINED STABLE DURING THE SHIFT, NO ANY DISTRESS NOTED, REMAINED SR ON TELE MONITOR , IVF TOLERATED WELL. G TUBE DRAINED 5O ML , F/C INTACT AND DRAINED ADEQUATE URINE. SAFETY MEASURES APPLIED , TURNED AND REPOSITIONED Q2H , ALL NEEDS ATTENDED PROMPTLY. WILL ENDORSE TO NEXT SHIFT RN FOR CONTINUITY OF CARE.
--- NOTE | 2016-09-12 07:35 | NUR ---
RT PT RECEIVED TRACHED ON THE VENT WITH NOTED SETTINGS. PT IS AWAKE BUT DOES NOT FOLLOW COMMANDS. VENT ALARMS ARE SET AND AUDIBLE WITH BVM BY BEDSIDE. PICKLE SORTER CUFF PRESSURE NOTED. VENT IS PLUGGED INTO RED OUTLET. SX SMALL THIN SECRETIONS. NO RESPIRATORY DISTRESS NOTED AT THIS TIME, WILL CONTINUE TO MONITOR. Addendum: 09/12/16 at 1819 by DEANN SHETH RT Amended: Links added.
[2016-09-12 08:00] VITALS: BP 150/78
--- NOTE | 2016-09-12 08:00 | NUR ---
RN NOTES RECEIVED PT LAYING IN BED, PT IS OBTUNDED, ON TRACHE MECH VENT SETTINGS PRESCRIBED, SUCTIONED AIRWAY FOR CLEARANCE, PER REPORT PT HAS TACHYCARDIA WHILE NS INFUSING THRU JT. JTUBE CLAMPED AT THIS TIME. KEPT COMFORTABLE, WILL CONT TO MONITOR
[2016-09-12] MEDS: VIT B CMPLX 3/FA/VIT C/BIOTIN 1 TAB TABLET GT SCH (09:13)
[2016-09-12] MEDS: PANTOPRAZOLE 40 MG VIAL IV SCH ×2 (09:14→21:22)
[2016-09-12] MEDS: PROSOURCE / PROSTAT (PYXIS) 30 ML UDC GT SCH ×2 (09:14→16:56)
[2016-09-12] MEDS: PHENYTOIN SODIUM IV 50 MG/ML VIAL IV SCH ×2 (09:14→21:18)
[2016-09-12] MEDS: LEVETIRACETAM SOL (5 ML) 100 MG/ML UDC GT SCH ×2 (09:14→21:00)
[2016-09-12] MEDS: LEVOTHYROXINE SODIUM 25 MCG TABLET GT SCH (09:14)
[2016-09-12] MEDS: Z GUARD REMEDY 2 OZ OINT TP SCH (09:15)
[2016-09-12] MEDS ORDERED: IV NS 0.9% 250 ML IV ONE (09:23)
[2016-09-12] MEDS: CEFEPIME 2 GM in IV D5W 100 ML IV SCH ×2 (09:23→21:17)
[2016-09-12] MEDS: HEPARIN SODIUM, PORCINE 5000 UNITS/1 ML VIAL SQ SCH ×2 (09:24→21:19)
[2016-09-12 12:00] VITALS: BP 144/77
[2016-09-12] MEDS ORDERED: IV D5/0.45 NACL 1,000 ML IV ONE (12:30)
[2016-09-12] MEDS: NEOMY SULF/BACITRAC ZN/POLY 15 GM TUBE TP SCH (13:12)
[2016-09-12 16:00] VITALS: BP 122/75
[2016-09-12] MEDS: VANCOMYCIN 0.75 GM in IV D5W 250 ML IV SCH (17:00)
--- NOTE | 2016-09-12 17:00 | NUR ---
RN NOTES LEFT A MESSAGE TO DR PATRICIO REGARDING PT STATUS ON [employer], PT KEPT COMFORTABLE, NO ACUTE CHANGE IN CONDITION. SR ON MONITOR, VS STABLE AT THIS TIME.
--- NOTE | 2016-09-12 19:28 | NUR ---
RECEIVED REPORT PATIENT IS STILL NPO AT THIS TIME. F/U WITH DR. DIANA PATRICIO REGARDING WHETHER TO START TUBE FEEDINGS. RECEIVED NEW ORDER FOR KUB WITH CONTRAST THROUGH [employer]. NOTED AND CARRIED OUT. WILL CONTINUE TO MONITOR.
--- NOTE | 2016-09-12 19:35 | NUR ---
ORACLE TECHNICAL DEVELOPER NOTES PT IS IN BED, HOB ELEVATED, OBTUNDED,NO SIGN OF ACUTE DISTRESS NOTED, TRACHED, SITE CDI, ON MECHANICAL VENT, J-PEG IS CLAMPED, G TUBE DRAINING WITH [place]ANT [place] COLOR DRAINAGE. F/C PATENT AND DRAINING CLEAR AND YELLOW URINE. IV SITE PATENT, FLUSHED, IV FLUIDS D51/2 @75ML HR RUNNING. TURNED AND REPOSITIONED, PT IS CLEAN AND DRY. BED LOCKED AND IN LOWEST POSITION, CALL LIGHTS WITHIN REACH.
[2016-09-12] MEDS ORDERED: DIATR MEGLU/DIATRIZOATE SODIUM 30 ML BOTTLE (GASTROGRAPHIN) ONE (19:39)
[2016-09-12 20:00] VITALS: BP 125/72
--- NOTE | 2016-09-12 20:12 | NUR ---
all pink [facility] once cleared for pt safety
[2016-09-12] MEDS: MICAFUNGIN SODIUM 100 MG in IV NS 0.9% 100 ML IV SCH (20:18)
[2016-09-13] VITALS: BP 124/80
[2016-09-13] MEDS: BLOOD SUGAR DIAGNOSTIC 1 EACH STRIP IN SCH ×5 (00:57→23:45)
[2016-09-13 04:00] VITALS: BP 137/82
[2016-09-13] MEDS: PROPRANOLOL HCL 40 MG TABLET GT SCH ×3 (05:00→21:45)
[2016-09-13] MEDS: ERYTHROMYCIN ETHYLSUCCINATE 200 MG/5 ML SUSPENSION GT SCH ×5 (05:57→23:45)
[2016-09-13] MEDS ORDERED: IV NS 0.9% 250 ML IV ONE (06:04)
--- NOTE | 2016-09-13 07:01 | NUR ---
WORKSHOP MANAGER CLOSING NOTES NO SIGNIFICANT CHANGES OVERNIGHT, ON MECHANICAL VENT AND TOLERATING CURRENT SETTINGS WELL. GT FEEDING IS DRAINING VIA GRAVITY, GT SITE KEPT CLEAN, J TUBE IS CLAMPED, STILL NPO. RAMON CATH IS IN PLACE, PROVIDED RAMON CARE. WOUND TREATMENT DONE, TURNED THE PATIENT Q2H AND KEPT SKIN CLEAN AND DRY, IV SITES CDI, NO SIGNS OF INFECTION IV HYDRATION INFUSING. ALL NEEDS ANTICIPATED, WILL ENDORSE TO AM NURSE FOR CONTINUITY OF CARE.
[2016-09-13 08:00] VITALS: BP 128/74
[2016-09-13] MEDS: CEFEPIME 2 GM in IV D5W 100 ML IV SCH ×2 (10:57→21:46)
[2016-09-13] MEDS: PANTOPRAZOLE 40 MG VIAL IV SCH ×2 (10:58→21:45)
[2016-09-13] MEDS: PHENYTOIN SODIUM IV 50 MG/ML VIAL IV SCH ×2 (10:58→21:45)
[2016-09-13] MEDS: LEVOTHYROXINE SODIUM 25 MCG TABLET GT SCH (11:10)
[2016-09-13] MEDS: VIT B CMPLX 3/FA/VIT C/BIOTIN 1 TAB TABLET GT SCH (11:10)
[2016-09-13] MEDS: LEVETIRACETAM SOL (5 ML) 100 MG/ML UDC GT SCH ×2 (11:11→21:44)
[2016-09-13] MEDS: PROSOURCE / PROSTAT (PYXIS) 30 ML UDC GT SCH ×2 (11:11→17:07)
[2016-09-13] MEDS: HEPARIN SODIUM, PORCINE 5000 UNITS/1 ML VIAL SQ SCH ×2 (11:45→21:00)
[2016-09-13] MEDS: Z GUARD REMEDY 2 OZ OINT TP SCH (11:55)
[2016-09-13] MEDS: NEOMY SULF/BACITRAC ZN/POLY 15 GM TUBE TP SCH (11:55)
[2016-09-13 12:00] VITALS: BP 132/80
[2016-09-13] MEDS ORDERED: IV SET PRIMARY PUMP SET 1 EA INFUS.SET MC ONE (12:00)
[2016-09-13] MEDS: IV D5/0.45 NACL 1,000 ML IV PRN (12:12)
[2016-09-13 12:20] LABS: BASOPHILS % (AUTO) 0.3 % (0.0-2.0); EOSINOPHILS # (AUTO) 0.2 /CMM (0.0-0.7); EOSINOPHILS % (AUTO) 1.4 % (0.0-6.0); HEMATOCRIT 37 % (39-51); LYMPHOCYTES % (AUTO) 16.6 % (20.0-44.0); MEAN CORPUSCULAR HEMOGLOBIN 30 PG (26.0-33.0); MEAN CORPUSCULAR HGB CONC 33 g/dl (31.0-36.0); MEAN CORPUSCULAR VOLUME 90 fL (80-96); MONOCYTES # (AUTO) 1.4 /CMM (0.1-1.30); MONOCYTES % (AUTO) 11.2 % (2.0-12.0); NEUTROPHILS # (AUTO) 8.6 /CMM (1.8-8.9); NEUTROPHILS % (AUTO) 70.5 % (43.0-81.0); PLATELET COUNT (AUTO) 335 /CMM (150-450); RDW COEFFICIENT OF VARIATION 16.2 (11.5-15.0); RED BLOOD CELL COUNT(AUTO) 4.08 MIL/uL (4.5-6.0); WHITE BLOOD COUNT (AUTO) 12.2 K/uL (4.3-11.0)
[2016-09-13 13:02] LABS: CALCIUM, SERUM 9.7 mg/dL (8.5-10.1); CREATININE 2.5 mg/dL (0.6-1.3); PHOSPHORUS 3.4 mg/dL (2.5-4.9); POTASSIUM 4.5 mmol/L (3.5-5.1)
[2016-09-13 13:25] LABS: MAGNESIUM 1.2 mg/dL (1.8-2.4)
[2016-09-13 16:00] VITALS: BP 142/84
[2016-09-13] MEDS ORDERED: SECONDARY IV SET 1 EA INFUS.SET MC ONE (16:56)
[2016-09-13] MEDS: RENAL NOVASOURCE 1,000 ML BOTTLE GT PRN (17:07)
[2016-09-13] MEDS: Magnesium 1GM/D5W 100ML PREMIX 100 ML IV SCH ×2 (17:08→18:38)
--- NOTE | 2016-09-13 19:30 | NUR ---
RN NOTE RECEIVED PT IN NO ACUTE DISTRESS IN BED. PT HAS 3 SURGICAL INCISIONS THAT ARE CLEAN DRY AND INTACT. PT HAS GTUBE IN PLACE THAT IS CLEAN DRY AND INTACT WITH GREEN STOMACH CONTENT DRAINING WITH GRAVITY. PT HAS JTUBE THAT IS CLEAN DRY INTACT WITH NOVASOURCE @ 20ML/HR. PT TOLERATING FEEDING WITH 0 RESIDUAL. WILL ENDORSE TO INCREASE IN THE AM. PT IS ON MECHANICAL VENT AND TOLERATING VENT SETTING WELL. TRACH SITE IS CLEAN DRY AND INTACT. BED IN LOW LOCK POSITION WITH RIALS UP X 2. CALL LIGHT WITHIN REACH AND ALL SAFETY MEASURES ENSURED AND CARRIED OUT.
[2016-09-13 20:00] VITALS: BP 136/78
[2016-09-13] MEDS: MICAFUNGIN SODIUM 100 MG in IV NS 0.9% 100 ML IV SCH (20:06)
[2016-09-14] VITALS (7 sets, daily range): BP systolic 127–159; BP diastolic 63–78
[2016-09-14] MEDS: ERYTHROMYCIN ETHYLSUCCINATE 200 MG/5 ML SUSPENSION GT SCH ×2 (05:21→12:18)
[2016-09-14] MEDS: PROPRANOLOL HCL 40 MG TABLET GT SCH ×3 (05:21→20:46)
[2016-09-14] MEDS: BLOOD SUGAR DIAGNOSTIC 1 EACH STRIP IN SCH ×3 (05:35→17:39)
[2016-09-14 06:05] LABS: CALCIUM, SERUM 9.4 mg/dL (8.5-10.1); CREATININE 2.5 mg/dL (0.6-1.3); MAGNESIUM 1.9 mg/dL (1.8-2.4); PHOSPHORUS 3.4 mg/dL (2.5-4.9); POTASSIUM 3.8 mmol/L (3.5-5.1)
[2016-09-14 06:07] LABS: BASOPHILS % (AUTO) 0.2 % (0.0-2.0); EOSINOPHILS # (AUTO) 0.3 /CMM (0.0-0.7); EOSINOPHILS % (AUTO) 1.9 % (0.0-6.0); HEMATOCRIT 34 % (39-51); LYMPHOCYTES # (AUTO) 2.1 /CMM (0.8-4.8); LYMPHOCYTES % (AUTO) 14.9 % (20.0-44.0); MEAN CORPUSCULAR HEMOGLOBIN 29 PG (26.0-33.0); MEAN CORPUSCULAR HGB CONC 32 g/dl (31.0-36.0); MEAN CORPUSCULAR VOLUME 91 fL (80-96); MONOCYTES # (AUTO) 1.9 /CMM (0.1-1.30); MONOCYTES % (AUTO) 13.4 % (2.0-12.0); NEUTROPHILS # (AUTO) 9.8 /CMM (1.8-8.9); NEUTROPHILS % (AUTO) 69.6 % (43.0-81.0); PLATELET COUNT (AUTO) 318 /CMM (150-450); RDW COEFFICIENT OF VARIATION 15.9 (11.5-15.0); RED BLOOD CELL COUNT(AUTO) 3.75 MIL/uL (4.5-6.0); WHITE BLOOD COUNT (AUTO) 14.1 K/uL (4.3-11.0)
--- NOTE | 2016-09-14 06:31 | NUR ---
RN CLOSING NOTE PT DID NOT HAVE ANY SIGNFICANT CHANGE IN CONDITION DURING SHIFT. PT REMAINS IN NO ACUTE DISTRESS IN BED. PT TOLERATED TUBE FEEDING WELL. WILL INCREASE TO 40 % AND WILL ENDORSE CARE TO AM RN FOR CONTINUITY OF CARE.
--- NOTE | 2016-09-14 07:10 | NUR ---
RN NOTE RECEIVED PT ON BED , VENT DEPENDENT ,TRACH CARE DONE , TOLERATING CURRENT SETTING WELL, TOLERATING TF VIA J TUBE WELL NOVASOURCE AT 20CC/HR AT THIS TIME, G TUBE IS DRAINING TO GRAVITY , NO DARNING NOTED AT THIS TIME, BED IN LOW LOCK POSITION WITH RIALS UP X 3, CALL LIGHT WITHIN EASY REACH AND ALL SAFETY MEASURES ENSURED AND CARRIED OUT. CONTINUE TO MONITOR PT CLOSELY AND NOTIFY MD FOR ANY SIGNIFICANT CHANGES .
--- NOTE | 2016-09-14 08:00 | NUR ---
RN NOTES SWELLING NOTED ON THE R FINGER IV SITE , PT IS HARD STICK, TENDERIZER TENDER NOTIFIED FOR MIDLINE PLACEMENT .
[2016-09-14] MEDS: PROSOURCE / PROSTAT (PYXIS) 30 ML UDC GT SCH ×2 (08:02→16:43)
[2016-09-14] MEDS: CEFEPIME 2 GM in IV D5W 100 ML IV SCH ×2 (08:02→20:48)
[2016-09-14] MEDS: LEVETIRACETAM SOL (5 ML) 100 MG/ML UDC GT SCH ×2 (08:03→20:48)
[2016-09-14] MEDS: PANTOPRAZOLE 40 MG VIAL IV SCH ×2 (08:03→20:49)
[2016-09-14] MEDS: LEVOTHYROXINE SODIUM 25 MCG TABLET GT SCH (08:03)
[2016-09-14] MEDS: HEPARIN SODIUM, PORCINE 5000 UNITS/1 ML VIAL SQ SCH ×2 (08:04→21:00)
[2016-09-14] MEDS: VIT B CMPLX 3/FA/VIT C/BIOTIN 1 TAB TABLET GT SCH (08:05)
[2016-09-14] MEDS: PHENYTOIN SODIUM IV 50 MG/ML VIAL IV SCH ×2 (08:05→20:52)
[2016-09-14] MEDS: NEOMY SULF/BACITRAC ZN/POLY 15 GM TUBE TP SCH (08:06)
[2016-09-14] MEDS: Z GUARD REMEDY 2 OZ OINT TP SCH (08:06)
--- NOTE | 2016-09-14 13:00 | NUR ---
RN NOTES YENNY D/RADHA PER MD ORDER .
[2016-09-14] MEDS ORDERED: SECONDARY IV SET 1 EA INFUS.SET MC ONE ×2 (16:32→18:55)
[2016-09-14] MEDS: IV D5/0.45 NACL 1,000 ML IV PRN (16:42)
[2016-09-14] MEDS: LACTOBACILLUS RHAMNOSUS GG 1 EACH CAP.SPRINK PO SCH (16:43)
[2016-09-14] MEDS: VANCOMYCIN 0.75 GM in IV D5W 250 ML IV SCH (17:41)
--- NOTE | 2016-09-14 18:00 | NUR ---
RN NOTES PT REMANS THE SAME, VOIDED PER DIAPER, IVF D51/2 NS AT 75CC/HR RUNNING VIA R UPPER ARM PICC LINE,TOLERATING TF WELL VIA J TUBE , NO RESIDIAUL NOTED, SR UP x3, CALL LIGHT WITHIN EASY REACH , CONTINUE TO MONITOR PT CLOSELY AND NOTIFY MD FOR ANY SIGNIFICANT CHANGES
[2016-09-14] MEDS: MICAFUNGIN SODIUM 100 MG in IV NS 0.9% 100 ML IV SCH (18:57)
--- NOTE | 2016-09-14 19:30 | NUR ---
RN INITIAL NOTES RECEIVED PATIENT LAYING IN BED, OBTUNDED AT BASELINE, TRACH MIDLINE AND INTACT, MECH VENT SETTINGS PRESCRIBED, SUCTIONED AIRWAY FOR CLEARANCE, RIGHT UPPER ARM MIDLINE PATENT AND INTACT, FLUSHED WITH NS, ONGOING IVF ORDERED, NOTED WITH GOOD VENOUS RETURN, FREE FROM ANY S/S OF INFILTRATION OR PHLEBITIS. GT CONNECTED TO RAMON BAG VIA GRAVITY, NO OUTPUT NOTED. JT CONNECTED TO TUBE FEEDINGS, ONGOING PRESCRIBED, NO RESIDUALS AT THIS TIME. CALL LIGHT LEFT WITHIN EASY REACH, BED IN LOWEST AND LOCKED POSITION. WILL CONTINUE TO CLSOELY MONITOR
[2016-09-14 21:32] LABS: APPEARANCE,URINE SL CLOUDY (CLEAR); BILIRUBIN,URINE NEGATIVE (NEGATIVE); BLOOD, URINE 2+ Ery/uL (NEGATIVE); COLOR,URINE YELLOW (YELLOW); KETONES,URINE NEGATIVE (NEGATIVE); LEUKOCYTE ESTERASE ,URINE 1+ (NEGATIVE); NITRITE, URINE NEGATIVE (NEGATIVE); PH,URINE 5.5 (5.0-8.0); PROTEIN,URINE TRACE mg/dl (NEGATIVE); UGLUCOSE NEGATIVE (NEGATIVE); UROBILINOGEN,URINE 0.2 EU/dL (0.2)
[2016-09-14 21:42] LABS: ADD URINE CULTURE YES; BACTERIA,URINE Few /HPF (None Seen); SQUAMOUS EPITHELIAL CELL,UR Few /HPF (None Seen); YEAST,URINE Few /HPF (None Seen)
[2016-09-15] VITALS: BP 142/79
[2016-09-15] MEDS: BLOOD SUGAR DIAGNOSTIC 1 EACH STRIP IN SCH ×4 (01:30→17:02)
[2016-09-15 04:00] VITALS: BP 128/62
[2016-09-15] MEDS ORDERED: IV NS 0.9% 250 ML IV ONE (05:24)
[2016-09-15] MEDS ORDERED: IV SET PRIMARY PUMP SET 1 EA INFUS.SET MC ONE (05:24)
[2016-09-15] MEDS: PROPRANOLOL HCL 40 MG TABLET GT SCH ×3 (05:35→22:23)
[2016-09-15] MEDS: RENAL NOVASOURCE 1,000 ML BOTTLE GT PRN (05:39)
[2016-09-15] MEDS: IV D5/0.45 NACL 1,000 ML IV PRN ×2 (05:40→18:41)
[2016-09-15 06:38] LABS: BASOPHILS # (AUTO) 0.1 /CMM (0.0-0.2); BASOPHILS % (AUTO) 0.4 % (0.0-2.0); EOSINOPHILS # (AUTO) 0.2 /CMM (0.0-0.7); EOSINOPHILS % (AUTO) 1.1 % (0.0-6.0); HEMATOCRIT 34 % (39-51); HEMOGLOBIN 11.1 g/dL (13.5-17.5); LYMPHOCYTES # (AUTO) 1.9 /CMM (0.8-4.8); LYMPHOCYTES % (AUTO) 10.9 % (20.0-44.0); MEAN CORPUSCULAR HEMOGLOBIN 30 PG (26.0-33.0); MEAN CORPUSCULAR HGB CONC 33 g/dl (31.0-36.0); MEAN CORPUSCULAR VOLUME 91 fL (80-96); MONOCYTES # (AUTO) 2.4 /CMM (0.1-1.30); MONOCYTES % (AUTO) 14.1 % (2.0-12.0); NEUTROPHILS # (AUTO) 12.5 /CMM (1.8-8.9); NEUTROPHILS % (AUTO) 73.5 % (43.0-81.0); PLATELET COUNT (AUTO) 324 /CMM (150-450); RED BLOOD CELL COUNT(AUTO) 3.73 MIL/uL (4.5-6.0)
[2016-09-15 06:47] LABS: CALCIUM, SERUM 9.5 mg/dL (8.5-10.1); CREATININE 2.5 mg/dL (0.6-1.3); MAGNESIUM 1.7 mg/dL (1.8-2.4); PHOSPHORUS 2.9 mg/dL (2.5-4.9); POTASSIUM 3.6 mmol/L (3.5-5.1)
--- NOTE | 2016-09-15 07:00 | NUR ---
RN CLOSING NOTES NO SIGNIFICANT CHANGES THROUGHOUT SHIFT. WILL ENDORSE THE PATIENT TO THE AM SHIFT NURSE FOR LAUREN
--- NOTE | 2016-09-15 07:53 | NUR ---
tele rnnote patient in bed . with trach to vent setting , ambu bag at hob , at all time , on Isoflex bed for skin management, with jtube feeding as ordered keep hob elevated at all time ,no residual noted, also with g tube by gravity no drainage noted, rt upper arm mid line in place on ivf as ordered, bed in lowest and locked position, call light within reach , will cont to monitor closely
[2016-09-15 08:00] VITALS: BP 126/63
[2016-09-15] MEDS: CEFEPIME 2 GM in IV D5W 100 ML IV SCH (08:20)
[2016-09-15] MEDS: PROSOURCE / PROSTAT (PYXIS) 30 ML UDC GT SCH ×2 (08:20→16:42)
[2016-09-15] MEDS: PANTOPRAZOLE 40 MG VIAL IV SCH ×2 (08:20→22:23)
[2016-09-15] MEDS: LEVOTHYROXINE SODIUM 25 MCG TABLET GT SCH (08:21)
[2016-09-15] MEDS: PHENYTOIN SODIUM IV 50 MG/ML VIAL IV SCH ×2 (08:21→22:23)
[2016-09-15] MEDS: LEVETIRACETAM SOL (5 ML) 100 MG/ML UDC GT SCH ×2 (08:21→22:22)
[2016-09-15] MEDS: LACTOBACILLUS RHAMNOSUS GG 1 EACH CAP.SPRINK PO SCH ×2 (08:21→16:42)
[2016-09-15] MEDS: VIT B CMPLX 3/FA/VIT C/BIOTIN 1 TAB TABLET GT SCH (08:21)
[2016-09-15] MEDS: HEPARIN SODIUM, PORCINE 5000 UNITS/1 ML VIAL SQ SCH ×2 (08:23→22:24)
[2016-09-15] MEDS: NEOMY SULF/BACITRAC ZN/POLY 15 GM TUBE TP SCH (08:30)
[2016-09-15] MEDS: Z GUARD REMEDY 2 OZ OINT TP SCH (09:42)
--- NOTE | 2016-09-15 11:30 | NUR ---
PRINTED CIRCUIT DESIGNER NOTE MRSA SWAB COLLECTED PER HOSPITAL PROTOCOL
[2016-09-15 12:00] VITALS: BP 135/77
--- NOTE | 2016-09-15 13:00 | NUR ---
DIRECTOR PACKAGING NOTE SEEN Y DR ORTIZ SURGEON NOTIFIED THAT NO DRAINAGE FROM G TUBE TO GRAVITY, . DR ORTIZ AT BEDSIDE GTUBE REMOVED , NOTIFIED THAT FROM STOMA BLEEDING NOTED , STATED CONT TO HAVE PRESSURE DRESSING AT THIS TIME , AND CONT JTUBE FEEDING ORDERED AT RATE 35 MPL PER HOUR
--- NOTE | 2016-09-15 15:30 | NUR ---
MANAGER HEAVY EQUIPMENT NOTE CALLED TO Lino ORNELAS TO INFORM MAG 1.7 AWAITING FOR RETURN CALL
[2016-09-15 16:00] VITALS: BP 118/66
--- NOTE | 2016-09-15 16:56 | NUR ---
TELE RNEYAD CALLED TO DR JC TO INFORM MAG 1.7 WILL AWAIT FOR RETURN CALL
--- NOTE | 2016-09-15 17:56 | NUR ---
TELERNNOTE PER NEAR ID RNNP INSERT F\C AND IF MORE THEN 200 ML OF URINE OUTPUT LEAVE F\C , NOTIFIED THAT MAG 1.7 NO NEW ORDER GIVEN
--- NOTE | 2016-09-15 18:38 | NUR ---
DISTRICT ASSOCIATE JUDGE NOTE RAMON INSERTED ORDERED,NOTED 90 ML OF YELLOW URINE , SPOKE WITH MADAN ROSSI BOWL TURNER OK TO REMOVE RAMON , KEEP CLEAN DRY
--- NOTE | 2016-09-15 19:30 | NUR ---
RN INITIAL NOTES RECEIVED PATIENT LAYING IN BED, OBTUNDED AT BASELINE, TRACH MIDLINE AND INTACT, MECH VENT SETTINGS PRESCRIBED, SUCTIONED AIRWAY FOR CLEARANCE, RIGHT UPPER ARM MIDLINE PATENT AND INTACT, FLUSHED WITH NS, ONGOING IVF ORDERED, NOTED WITH GOOD VENOUS RETURN, FREE FROM ANY S/S OF INFILTRATION OR PHLEBITIS. GT STOMA WITH PRESSURE DRESSING. JT CONNECTED TO TUBE FEEDINGS, ONGOING PRESCRIBED, NO RESIDUALS AT THIS TIME. CALL LIGHT LEFT WITHIN EASY REACH, BED IN LOWEST AND LOCKED POSITION. WILL CONTINUE TO CLOSELY MONITOR
[2016-09-15 20:00] VITALS: BP 133/77
[2016-09-16] VITALS: BP 125/74
[2016-09-16] MEDS: BLOOD SUGAR DIAGNOSTIC 1 EACH STRIP IN SCH ×5 (00:48→23:46)
[2016-09-16 04:00] VITALS: BP 131/69
[2016-09-16] MEDS: PROPRANOLOL HCL 40 MG TABLET GT SCH ×3 (05:19→21:13)
[2016-09-16] MEDS ORDERED: IV NS 0.9% 250 ML IV ONE (05:23)
[2016-09-16] MEDS: RENAL NOVASOURCE 1,000 ML BOTTLE GT PRN (05:24)
[2016-09-16] MEDS: IV D5/0.45 NACL 1,000 ML IV PRN ×2 (05:45→17:59)
[2016-09-16 06:43] LABS: BASOPHILS # (AUTO) 0.1 /CMM (0.0-0.2); BASOPHILS % (AUTO) 0.5 % (0.0-2.0); EOSINOPHILS # (AUTO) 0.2 /CMM (0.0-0.7); HEMATOCRIT 31 % (39-51); HEMOGLOBIN 10.2 g/dL (13.5-17.5); LYMPHOCYTES # (AUTO) 1.5 /CMM (0.8-4.8); LYMPHOCYTES % (AUTO) 13.1 % (20.0-44.0); MEAN CORPUSCULAR HEMOGLOBIN 30 PG (26.0-33.0); MEAN CORPUSCULAR HGB CONC 33 g/dl (31.0-36.0); MEAN CORPUSCULAR VOLUME 91 fL (80-96); MONOCYTES # (AUTO) 1.1 /CMM (0.1-1.30); MONOCYTES % (AUTO) 8.9 % (2.0-12.0); NEUTROPHILS # (AUTO) 8.9 /CMM (1.8-8.9); NEUTROPHILS % (AUTO) 75.5 % (43.0-81.0); PLATELET COUNT (AUTO) 288 /CMM (150-450); RDW COEFFICIENT OF VARIATION 16.3 (11.5-15.0); RED BLOOD CELL COUNT(AUTO) 3.37 MIL/uL (4.5-6.0); WHITE BLOOD COUNT (AUTO) 11.8 K/uL (4.3-11.0)
[2016-09-16 07:12] LABS: ALBUMIN 1.7 g/dL (3.4-5.0); BILIRUBIN,TOTAL 0.2 mg/dL (0.2-1.0); CALCIUM, SERUM 9.1 mg/dL (8.5-10.1); CREATININE 2.6 mg/dL (0.6-1.3); MAGNESIUM 1.5 mg/dL (1.8-2.4); PHOSPHORUS 2.6 mg/dL (2.5-4.9); POTASSIUM 3.3 mmol/L (3.5-5.1); TOTAL PROTEIN, SERUM 5.9 g/dL (6.4-8.2)
--- NOTE | 2016-09-16 07:45 | NUR ---
RN NOTES: PT RECEIVED IN STABLE CONDITION, OBTUNDED. OPEN EYES TO VERBAL & TACTILE STIMULI. ON VENT-TRAC, SETTINGS TOLERATING WELL. ON TELE MONITOR SINUS RHYTHM. INCONTINENT TO B/B ELIMINATION. DIAPER CLEAN & DRY. G-TUBE STOMA IS COVERED WITH DRESSING. J-TUBE INTACT, RUNNING WITH TUBE FEEDING ORDERED. SAFETY MEASURES OBSERVED. IV SITE INTACT, RUNNING WITH IV FLUIDS ORDERED. ASPIRATION PRECAUTIONS OBSERVED. WILL CONTINUE TO MONITOR.
[2016-09-16 08:00] VITALS: BP 129/75
[2016-09-16] MEDS: PHENYTOIN SODIUM IV 50 MG/ML VIAL IV SCH ×2 (08:37→21:09)
[2016-09-16] MEDS: PROSOURCE / PROSTAT (PYXIS) 30 ML UDC GT SCH ×2 (08:37→16:00)
[2016-09-16] MEDS: VIT B CMPLX 3/FA/VIT C/BIOTIN 1 TAB TABLET GT SCH (08:37)
[2016-09-16] MEDS: PANTOPRAZOLE 40 MG VIAL IV SCH ×2 (08:37→21:09)
[2016-09-16] MEDS: LEVOTHYROXINE SODIUM 25 MCG TABLET GT SCH (08:37)
[2016-09-16] MEDS: LACTOBACILLUS RHAMNOSUS GG 1 EACH CAP.SPRINK PO SCH ×2 (08:37→16:00)
[2016-09-16] MEDS: Z GUARD REMEDY 2 OZ OINT TP SCH (08:38)
[2016-09-16] MEDS: NEOMY SULF/BACITRAC ZN/POLY 15 GM TUBE TP SCH (08:38)
[2016-09-16] MEDS: HEPARIN SODIUM, PORCINE 5000 UNITS/1 ML VIAL SQ SCH ×2 (08:40→21:15)
[2016-09-16] MEDS: LEVETIRACETAM SOL (5 ML) 100 MG/ML UDC GT SCH ×2 (08:42→21:13)
[2016-09-16] MEDS ORDERED: CEFEPIME 2 GM in IV D5W 100 ML IV SCH (09:00)
[2016-09-16 12:00] VITALS: BP 97/57
[2016-09-16] MEDS ORDERED: POTASSIUM CHLORIDE 20 MEQ TAB.PRT.SR PO ONE (13:44)
[2016-09-16] MEDS: Magnesium 1GM/D5W 100ML PREMIX 1 G in PREMIX 1 EA IV SCH ×2 (14:55→16:00)
[2016-09-16] MEDS ORDERED: SECONDARY IV SET 1 EA INFUS.SET MC ONE (14:55)
--- NOTE | 2016-09-16 15:33 | NUR ---
RN NOTES: PT SEEN BY DR. SHENG DAMON, REPLACED POTASSIUM & MAGNESIUM ORDERED BY .
[2016-09-16 16:00] VITALS: BP 120/74
[2016-09-16 20:00] VITALS: BP 116/69
[2016-09-17] VITALS: BP 123/54
[2016-09-17 04:00] VITALS: BP 126/66
[2016-09-17] MEDS ORDERED: IV NS 0.9% 250 ML IV ONE (04:54)
[2016-09-17] MEDS: RENAL NOVASOURCE 1,000 ML BOTTLE GT PRN (05:04)
[2016-09-17] MEDS: BLOOD SUGAR DIAGNOSTIC 1 EACH STRIP IN SCH ×4 (05:05→23:38)
[2016-09-17] MEDS: PROPRANOLOL HCL 40 MG TABLET GT SCH ×3 (05:05→21:43)
[2016-09-17] MEDS: IV D5/0.45 NACL 1,000 ML IV PRN (05:05)
[2016-09-17 06:39] LABS: BASOPHILS % (AUTO) 0.2 % (0.0-2.0); EOSINOPHILS # (AUTO) 0.2 /CMM (0.0-0.7); EOSINOPHILS % (AUTO) 1.7 % (0.0-6.0); HEMATOCRIT 32 % (39-51); HEMOGLOBIN 10.7 g/dL (13.5-17.5); LYMPHOCYTES # (AUTO) 1.5 /CMM (0.8-4.8); LYMPHOCYTES % (AUTO) 13.9 % (20.0-44.0); MEAN CORPUSCULAR HEMOGLOBIN 30 PG (26.0-33.0); MEAN CORPUSCULAR HGB CONC 33 g/dl (31.0-36.0); MEAN CORPUSCULAR VOLUME 91 fL (80-96); MONOCYTES % (AUTO) 9.7 % (2.0-12.0); NEUTROPHILS # (AUTO) 7.9 /CMM (1.8-8.9); NEUTROPHILS % (AUTO) 74.5 % (43.0-81.0); PLATELET COUNT (AUTO) 134 /CMM (150-450); RDW COEFFICIENT OF VARIATION 16.5 (11.5-15.0); RED BLOOD CELL COUNT(AUTO) 3.55 MIL/uL (4.5-6.0); WHITE BLOOD COUNT (AUTO) 10.6 K/uL (4.3-11.0)
[2016-09-17 06:42] LABS: CALCIUM, SERUM 9.3 mg/dL (8.5-10.1); CREATININE 2.6 mg/dL (0.6-1.3); POTASSIUM 3.8 mmol/L (3.5-5.1)
--- NOTE | 2016-09-17 07:47 | NUR ---
initial note patient resting in bed, opens eyes spontaneously, non-verbal, able to understand some words, confirmed with blinks. breathing even and unlabored with mechanical vent at prescribed settings. o2 sat 100%. + rhonchi BL upper lobes, + wheezing BL lower lobes. bowel sounds present. 5ml residual JT residual, feeding color. feeding @ prescribed rate. ANGELIQUE midline patent, dressing cdi with prescribed fluids. repositioned in functional alignment. discussed plan of care. call light in reach.
[2016-09-17 08:00] VITALS: BP 102/48
[2016-09-17] MEDS: Z GUARD REMEDY 2 OZ OINT TP SCH (08:52)
[2016-09-17] MEDS: HEPARIN SODIUM, PORCINE 5000 UNITS/1 ML VIAL SQ SCH ×2 (08:52→21:00)
[2016-09-17] MEDS: PHENYTOIN SODIUM IV 50 MG/ML VIAL IV SCH ×2 (08:52→21:42)
[2016-09-17] MEDS: PANTOPRAZOLE 40 MG VIAL IV SCH ×2 (08:52→21:42)
[2016-09-17] MEDS: LACTOBACILLUS RHAMNOSUS GG 1 EACH CAP.SPRINK PO SCH ×2 (08:52→16:09)
[2016-09-17] MEDS: VIT B CMPLX 3/FA/VIT C/BIOTIN 1 TAB TABLET GT SCH (08:52)
[2016-09-17] MEDS: LEVETIRACETAM SOL (5 ML) 100 MG/ML UDC GT SCH ×2 (08:52→21:43)
[2016-09-17] MEDS: PROSOURCE / PROSTAT (PYXIS) 30 ML UDC GT SCH ×2 (08:52→16:09)
[2016-09-17] MEDS: NEOMY SULF/BACITRAC ZN/POLY 15 GM TUBE TP SCH (08:52)
[2016-09-17] MEDS: LEVOTHYROXINE SODIUM 25 MCG TABLET GT SCH (08:52)
--- NOTE | 2016-09-17 08:53 | NUR ---
heparin non-admin at this time, low plt, low h/h. last coagulation study on 09/08, will f/u with .
[2016-09-17 12:00] VITALS: BP 116/52
--- NOTE | 2016-09-17 15:30 | NUR ---
dr. Varghese saw patient today and reviewed labs. MD made aware of increasing edema and continuous IV fluids.
[2016-09-17 16:00] VITALS: BP 121/62
[2016-09-17] MEDS: FUROSEMIDE 20 MG TABLET PO SCH (16:09)
--- NOTE | 2016-09-17 19:23 | NUR ---
closing note left patient in unchanged condition. breathing with mech vent, o2 sat 100%, no resp distress, no sob. still opens eyes spontaneously. repositioned q2hr and rendered prn adl care. suctioned patient prn, no aspiration noted. no JT residuals noted this shift. afebrile. ANGELIQUE IV no complications. call light in reach
[2016-09-17] MEDS: IV D5/0.45 NACL 1,000 ML IV SCH (19:25)
[2016-09-17 20:00] VITALS: BP 109/60
--- NOTE | 2016-09-17 21:34 | NUR ---
MED NOTE: [address]P [address]TS DECREASING.
[2016-09-18] VITALS: BP 129/67
[2016-09-18 00:12] VITALS: BP 129/67
[2016-09-18] MEDS ORDERED: IV NS 0.9% 250 ML IV ONE ×2 (03:35→11:09)
[2016-09-18 04:00] VITALS: BP 137/75
[2016-09-18] MEDS: RENAL NOVASOURCE 1,000 ML BOTTLE GT PRN (04:58)
[2016-09-18] MEDS: IV D5/0.45 NACL 1,000 ML IV SCH (04:58)
[2016-09-18] MEDS: PROPRANOLOL HCL 40 MG TABLET GT SCH ×2 (04:59→13:01)
[2016-09-18] MEDS: BLOOD SUGAR DIAGNOSTIC 1 EACH STRIP IN SCH ×2 (05:00→11:20)
[2016-09-18 06:46] LABS: BASOPHILS % (AUTO) 0.3 % (0.0-2.0); EOSINOPHILS # (AUTO) 0.1 /CMM (0.0-0.7); EOSINOPHILS % (AUTO) 0.6 % (0.0-6.0); HEMATOCRIT 29 % (39-51); HEMOGLOBIN 9.9 g/dL (13.5-17.5); LYMPHOCYTES # (AUTO) 1.4 /CMM (0.8-4.8); LYMPHOCYTES % (AUTO) 9.8 % (20.0-44.0); MEAN CORPUSCULAR HEMOGLOBIN 31 PG (26.0-33.0); MEAN CORPUSCULAR HGB CONC 34 g/dl (31.0-36.0); MEAN CORPUSCULAR VOLUME 90 fL (80-96); MONOCYTES # (AUTO) 1.6 /CMM (0.1-1.30); MONOCYTES % (AUTO) 11.1 % (2.0-12.0); NEUTROPHILS # (AUTO) 11.5 /CMM (1.8-8.9); NEUTROPHILS % (AUTO) 78.2 % (43.0-81.0); PLATELET COUNT (AUTO) 280 /CMM (150-450); RDW COEFFICIENT OF VARIATION 16.5 (11.5-15.0); RED BLOOD CELL COUNT(AUTO) 3.25 MIL/uL (4.5-6.0); WHITE BLOOD COUNT (AUTO) 14.7 K/uL (4.3-11.0)
--- NOTE | 2016-09-18 07:00 | NUR ---
RN NOTES RECEIVED PT ON BED, ,OPENS EYES SPONTANEOUSLY/ NON VERBAL, VENT DEPENDENT, TRACH CARE DONE, TOLERANT CURRENT SETTING WELL, TF NOVASOURCE AT 35CC/O RUNNING J TUBE, WELL, NO RESIDUAL NOTED, . D51/2 ND AT 30CC/HR RUNNING VIA R UPPER ARM MIDLINE, SR UP x3, BED LOCKED AND IN LOW POSITION , CALL LIGHT WITHIN EASY REACH , CONTINUE TO MONITOR PT CLOSELY AND NOTIFY MD FOR ANY SIGNIFICANT CHANGES.
[2016-09-18 07:27] LABS: ALBUMIN 1.7 g/dL (3.4-5.0); BILIRUBIN,TOTAL 0.3 mg/dL (0.2-1.0); CALCIUM, SERUM 9.4 mg/dL (8.5-10.1); CREATININE 2.6 mg/dL (0.6-1.3); MAGNESIUM 1.8 mg/dL (1.8-2.4); PHOSPHORUS 1.9 mg/dL (2.5-4.9)
[2016-09-18 08:00] VITALS: BP 115/62
[2016-09-18] MEDS: PHENYTOIN SODIUM IV 50 MG/ML VIAL IV SCH (08:02)
[2016-09-18] MEDS: VIT B CMPLX 3/FA/VIT C/BIOTIN 1 TAB TABLET GT SCH (08:02)
[2016-09-18] MEDS: PANTOPRAZOLE 40 MG VIAL IV SCH (08:02)
[2016-09-18] MEDS: HEPARIN SODIUM, PORCINE 5000 UNITS/1 ML VIAL SQ SCH (08:03)
[2016-09-18] MEDS: PROSOURCE / PROSTAT (PYXIS) 30 ML UDC GT SCH (08:03)
[2016-09-18] MEDS: LACTOBACILLUS RHAMNOSUS GG 1 EACH CAP.SPRINK PO SCH (08:03)
[2016-09-18] MEDS: LEVOTHYROXINE SODIUM 25 MCG TABLET GT SCH (08:03)
[2016-09-18] MEDS: LEVETIRACETAM SOL (5 ML) 100 MG/ML UDC GT SCH (08:03)
[2016-09-18] MEDS: FUROSEMIDE 20 MG TABLET PO SCH (08:03)
[2016-09-18] MEDS: Z GUARD REMEDY 2 OZ OINT TP SCH (08:04)
[2016-09-18] MEDS: NEOMY SULF/BACITRAC ZN/POLY 15 GM TUBE TP SCH (08:05)
[2016-09-18] MEDS ORDERED: CHLO25TA13 GT (10:46)
[2016-09-18] MEDS ORDERED: VIT1TABL44 GT (10:46)
[2016-09-18] MEDS ORDERED: FURO20TA4 PO (10:46)
[2016-09-18] MEDS ORDERED: LACT1CAP72 PO (10:46)
[2016-09-18] MEDS ORDERED: INSU100V28 SQ (10:46)
[2016-09-18] MEDS ORDERED: LEVO25TA7 GT (10:46)
[2016-09-18] MEDS ORDERED: LEVE100S GT (10:46)
[2016-09-18] MEDS ORDERED: PROP40TA7 GT (10:46)
[2016-09-18] MEDS ORDERED: Nutritional Supplement GT ×2 (10:46)
[2016-09-18] MEDS ORDERED: NEOM15OI3 TP (10:46)
[2016-09-18] MEDS ORDERED: ALLA266C2 TP (10:46)
[2016-09-18] MEDS ORDERED: POTASSIUM PHOSPHATE MM 7.5 MMOL in IV D5W 100 ML IV SCH (11:00)
[2016-09-18] MEDS ORDERED: POTASSIUM PHOSPHATE MM 15 MMOL in IV D5W 250 ML IV SCH (11:00)
--- NOTE | 2016-09-18 11:00 | NUR ---
RN NOTES SLIGHT REDNESS AND SWELLING NOTED AT THE R UPPER ARM MIDLINE , DR GRAYSON NOTIFIED , MIDLINE D/ED. CONTINUE TO MONITOR .
--- NOTE | 2016-09-18 11:00 | NUR ---
RN NOTES DR HUANG NOTIFIED REGARDING K=3.0 AND PHOS= 1.9
[2016-09-18] MEDS ORDERED: BLOOD IV SET 1 EA INFUS.SET MC ONE (11:09)
[2016-09-18 12:00] VITALS: BP 118/62
--- NOTE | 2016-09-18 13:24 | NUR ---
RN NOTES SPOKEN TO DR GRAYSON REGARDING LOW K AND PHOS LEVEL , PT WILL RECEIVED REPLACEMENT WHEN HE GET TO SNF .
[2016-09-18 16:00] VITALS: BP 138/67
--- NOTE | 2016-09-18 16:24 | NUR ---
RN NOTES REPORT GIVEN TO OC MALDONADO AND EMT KATEY VSS STABLE, DISCHARGE SKIN PHOTO TAKEN . PT STABLE .
--- NOTE | 2016-09-18 16:45 | NUR ---
RN NOTES PT LEFT THE FLOOR TO MAIN ENTRANCE ACCOMPANIED BY EMT PERINEAL IN STABLE CONDITION .
== END 2016-09-18 16:45 | DRG 720 ==
LOC: ER 18:15 → TELE1 20:07 → TELE-TD 08-30 11:48 → TELE1 09-05 13:35
PROVIDERS: ADMIT Internal Medicine; ATTEND Internal Medicine
PROC: 5A1955Z Respiratory Ventilation, Greater than 96 Consecutive Hours (ICD-10-PCS; principal; 2016-08-25)
PROC: 0DHA3UZ Insertion of Feeding Device into Jejunum, Percutaneous Approach (ICD-10-PCS; 2016-09-10)
DX: A41.9 Sepsis, unspecified organism (principal); G93.1 Anoxic brain damage, not elsewhere classified; G93.40 Encephalopathy, unspecified; Z99.11 Dependence on respirator [ventilator] status; J15.9 Unspecified bacterial pneumonia; R40.3 Persistent vegetative state; D68.9 Coagulation defect, unspecified; N18.4 Chronic kidney disease, stage 4 (severe); J96.11 Chronic respiratory failure with hypoxia; E11.22 Type 2 diabetes mellitus with diabetic chronic kidney disease; K94.23 Gastrostomy malfunction; E86.0 Dehydration; D64.9 Anemia, unspecified; E03.9 Hypothyroidism, unspecified; E11.43 Type 2 diabetes mellitus with diabetic autonomic (poly)neuropathy; R53.2 Functional quadriplegia; Z91.5 Personal history of self-harm; I12.9 Hypertensive chronic kidney disease with stage 1 through stage 4 chronic kidney disease, or unspecified chronic kidney disease; G40.909 Epilepsy, unspecified, not intractable, without status epilepticus; E88.09 Other disorders of plasma-protein metabolism, not elsewhere classified; J98.11 Atelectasis; K31.84 Gastroparesis; Y83.3 Surgical operation with formation of external stoma as the cause of abnormal reaction of the patient, or of later complication, without mention of misadventure at the time of the procedure; B37.49 Other urogenital candidiasis; Y82.9 Unspecified medical devices associated with adverse incidents; Y92.129 Unspecified place in nursing home as the place of occurrence of the external cause
CPT/HCPCS: 31720; 36415; 71010-TC; 74000-TC; 80048-TC; 80053-TC; 80076-TC; 80202-TC; 81000-TC; 82272-TC; 82962-TC; 83690-TC; 83735-TC; 84100-TC; 85025-TC; 85610-TC; 85730-TC; 87040-TC; 87070-TC; 87081-TC; 87086-TC; 87186-TC; 94002-TC; 94003-TC; 94760-TC; 99082-TC; A4216; A4217; A4338; A4349; A4606; A4623; A6253; A6403; C9113; J0360; J0692; J1165; J1450; J1644; J1650; J1815; J1953; J2185; J2248; J2270; J2405; J2704; J2765; J3010; J3370; J3475; J3480; J3490; J7030; J7040; J7042; J7050; J7060; J8597; Q0161; Q9963; Z7610

== ENCOUNTER 2016-12-06 11:54 | Inpatient (IN) | payer MEDICAID ==
[~2016-12-06] VITALS: Ht 172.7 cm; Wt 68.5 kg
[~2016-12-06 11:54] MED LIST changes: +CHLO25TA13 GT; +DIPH1TAB PO; -DOXY100T2 PO; +ENOX30DI SQ; -FAMO20TA8 GT; +FURO20TA4 PO; -Gel Dressing TP; -HYDR-552 GT; +INSU100I26 SQ; -INSU100V10 SQ; +INSU100V28 SQ; +LACT1CAP72 PO; +LEVE100S GT; +LEVO25TA7 GT; -LEVO25TA9 GT; -MUPI22OI7; +NEOM15OI3 TP; +Nutritional Supplement GT; -ONDA4TAB5 GT; -Phenytoin GT; +VIT1TABL44 GT
[2016-12-06 12:30] LABS: BASOPHILS # (AUTO) 0.1 /CMM (0.0-0.2); BASOPHILS % (AUTO) 0.5 % (0.0-2.0); EOSINOPHILS # (AUTO) 0.5 /CMM (0.0-0.7); EOSINOPHILS % (AUTO) 2.8 % (0.0-6.0); HEMATOCRIT 28 % (39-51); LYMPHOCYTES # (AUTO) 2.2 /CMM (0.8-4.8); LYMPHOCYTES % (AUTO) 12.8 % (20.0-44.0); MEAN CORPUSCULAR HEMOGLOBIN 33 PG (26.0-33.0); MEAN CORPUSCULAR HGB CONC 33 g/dl (31.0-36.0); MEAN CORPUSCULAR VOLUME 100 fL (80-96); MONOCYTES # (AUTO) 1.8 /CMM (0.1-1.30); MONOCYTES % (AUTO) 10.5 % (2.0-12.0); NEUTROPHILS # (AUTO) 12.8 /CMM (1.8-8.9); NEUTROPHILS % (AUTO) 73.4 % (43.0-81.0); PLATELET COUNT (AUTO) 404 /CMM (150-450); RDW COEFFICIENT OF VARIATION 14.1 (11.5-15.0); RED BLOOD CELL COUNT(AUTO) 2.79 MIL/uL (4.5-6.0); WHITE BLOOD COUNT (AUTO) 17.4 K/uL (4.3-11.0)
[2016-12-06] MEDS ORDERED: IV NS 0.9% 500 ML BAG IV ONE (12:30)
[2016-12-06 12:43] LABS: INR 1.12 (0.87-1.13); PROTHROMBIN TIME 11.7 SECS (9.5-12.7)
[2016-12-06] MEDS ORDERED: CHLO25TA13 GT (12:44)
[2016-12-06] MEDS ORDERED: PROP40TA7 PO (12:44)
[2016-12-06] MEDS ORDERED: LEVE100S GT (12:44)
[2016-12-06] MEDS ORDERED: LEVO25TA9 GT (12:44)
[2016-12-06] MEDS ORDERED: METO5SOL GT (12:44)
[2016-12-06] MEDS ORDERED: FAMO40TA7 GT (12:44)
[2016-12-06] MEDS ORDERED: FURO20TA4 GT (12:44)
[2016-12-06] MEDS ORDERED: HYDR-552 PO (12:44)
[2016-12-06] MEDS ORDERED: LACT-209 GT (12:44)
[2016-12-06] MEDS ORDERED: AMIN30LI2 GT (12:44)
[2016-12-06] MEDS ORDERED: ACET160S2 GT (12:44)
[2016-12-06] MEDS ORDERED: POTA20LI4 GT (12:44)
[2016-12-06] MEDS ORDERED: LACT1CAP61 GT (12:44)
[2016-12-06] MEDS ORDERED: INSU100V3 SQ (12:44)
[2016-12-06 12:45] LABS: ALBUMIN 2.7 g/dL (3.4-5.0); BILIRUBIN,DIRECT 0.1 mg/dL (0.0-0.2); BILIRUBIN,TOTAL 0.2 mg/dL (0.2-1.0); CALCIUM, SERUM 9.4 mg/dL (8.5-10.1); POTASSIUM 3.9 mmol/L (3.5-5.1)
[2016-12-06 14:50] VITALS: BP 138/81
[2016-12-06] MEDS: IV D5/ 0.9% NACL 1,000 ML IV PRN ×2 (14:50→19:39)
[2016-12-06 16:00] VITALS: BP 117/68
[2016-12-06 20:00] VITALS: BP 115/58
[2016-12-07] VITALS: BP 118/71
[2016-12-07 04:00] VITALS: BP 135/75
[2016-12-07 06:38] LABS: BASOPHILS % (AUTO) 0.2 % (0.0-2.0); EOSINOPHILS # (AUTO) 0.2 /CMM (0.0-0.7); EOSINOPHILS % (AUTO) 1.7 % (0.0-6.0); HEMATOCRIT 26 % (39-51); HEMOGLOBIN 8.9 g/dL (13.5-17.5); LYMPHOCYTES # (AUTO) 1.8 /CMM (0.8-4.8); LYMPHOCYTES % (AUTO) 16.2 % (20.0-44.0); MEAN CORPUSCULAR HEMOGLOBIN 34 PG (26.0-33.0); MEAN CORPUSCULAR HGB CONC 34 g/dl (31.0-36.0); MEAN CORPUSCULAR VOLUME 99 fL (80-96); MONOCYTES # (AUTO) 1.3 /CMM (0.1-1.30); MONOCYTES % (AUTO) 12.2 % (2.0-12.0); NEUTROPHILS # (AUTO) 7.7 /CMM (1.8-8.9); NEUTROPHILS % (AUTO) 69.7 % (43.0-81.0); PLATELET COUNT (AUTO) 340 /CMM (150-450); RED BLOOD CELL COUNT(AUTO) 2.65 MIL/uL (4.5-6.0)
[2016-12-07 06:53] LABS: INR 1.08 (0.87-1.13); PROTHROMBIN TIME 11.6 SECS (9.5-12.7)
[2016-12-07 07:00] LABS: CREATININE 2.8 mg/dL (0.6-1.3); POTASSIUM 3.7 mmol/L (3.5-5.1)
[2016-12-07 08:00] VITALS: BP_SYST 141; BP_SYST 152; BP_DIAS 81; BP_DIAS 87
[2016-12-07] MEDS ORDERED: DEXTROSE 50%-WATER 50 ML DISP.SYRIN IV PRN (11:00)
[2016-12-07] MEDS ORDERED: INSULIN REGULAR, HUMAN 100 UNIT/ML 3 ML VIAL SQ PRN (11:30)
[2016-12-07] MEDS ORDERED: LEVETIRACETAM (500MG) 500 MG/5 ML VIAL IV SCH (11:30)
[2016-12-07] MEDS: FAMOTIDINE/PF INJ 20 MG/2 ML VIAL IV SCH (11:44)
[2016-12-07] MEDS: FUROSEMIDE 20 MG/2 ML VIAL IV SCH (11:45)
[2016-12-07] MEDS: BLOOD SUGAR DIAGNOSTIC 1 EACH STRIP IN SCH ×3 (11:45→23:09)
[2016-12-07 12:00] VITALS: BP 141/83
[2016-12-07] MEDS ORDERED: METOCLOPRAMIDE HCL 5 MG/5 ML UDC GT SCH (12:00)
[2016-12-07] MEDS ORDERED: METOCLOPRAMIDE HCL 10 MG/10 ML UDC GT PRN (12:30)
[2016-12-07] MEDS: IV D5/ 0.9% NACL 1,000 ML IV PRN (12:50)
[2016-12-07] MEDS: KEPPRA 500 MG in IV NS 100 ML IV SCH (14:34)
[2016-12-07] MEDS: LEVOTHYROXINE INJ 100 MCG VIAL IV SCH (15:21)
[2016-12-07 16:00] VITALS: BP_SYST 128; BP_SYST 140; BP_DIAS 77; BP_DIAS 87
[2016-12-07 20:00] VITALS: BP 123/80
[2016-12-07] MEDS: INSULIN DETEMIR 100 UNIT/ML CARTRIDGE SQ SCH (22:00)
[2016-12-08] VITALS: BP 133/74
[2016-12-08] MEDS: KEPPRA 500 MG in IV NS 100 ML IV SCH ×2 (00:21→12:15)
[2016-12-08 04:00] VITALS: BP_SYST 115; BP_SYST 135; BP_DIAS 58; BP_DIAS 76
[2016-12-08] MEDS: IV D5/ 0.9% NACL 1,000 ML IV PRN (04:12)
[2016-12-08] MEDS: BLOOD SUGAR DIAGNOSTIC 1 EACH STRIP IN SCH ×3 (05:57→18:18)
[2016-12-08 06:19] LABS: BASOPHILS % (AUTO) 0.2 % (0.0-2.0); EOSINOPHILS # (AUTO) 0.1 /CMM (0.0-0.7); EOSINOPHILS % (AUTO) 0.8 % (0.0-6.0); HEMATOCRIT 26 % (39-51); HEMOGLOBIN 8.6 g/dL (13.5-17.5); LYMPHOCYTES # (AUTO) 1.5 /CMM (0.8-4.8); LYMPHOCYTES % (AUTO) 8.6 % (20.0-44.0); MEAN CORPUSCULAR HEMOGLOBIN 33 PG (26.0-33.0); MEAN CORPUSCULAR HGB CONC 33 g/dl (31.0-36.0); MEAN CORPUSCULAR VOLUME 100 fL (80-96); MONOCYTES # (AUTO) 2.1 /CMM (0.1-1.30); MONOCYTES % (AUTO) 12.4 % (2.0-12.0); NEUTROPHILS # (AUTO) 13.4 /CMM (1.8-8.9); PLATELET COUNT (AUTO) 347 /CMM (150-450); RDW COEFFICIENT OF VARIATION 15.1 (11.5-15.0); RED BLOOD CELL COUNT(AUTO) 2.59 MIL/uL (4.5-6.0); WHITE BLOOD COUNT (AUTO) 17.2 K/uL (4.3-11.0)
[2016-12-08] MEDS ORDERED: LIDOCAINE 2%-EPI 1:100,000 30 ML VIAL TP ONE (06:30)
[2016-12-08 06:32] LABS: CALCIUM, SERUM 8.7 mg/dL (8.5-10.1); CREATININE 3.1 mg/dL (0.6-1.3); MAGNESIUM 2.2 mg/dL (1.8-2.4); PHOSPHORUS 4.6 mg/dL (2.5-4.9); POTASSIUM 3.7 mmol/L (3.5-5.1)
[2016-12-08 08:00] VITALS: BP 150/83
[2016-12-08] MEDS: FUROSEMIDE 20 MG/2 ML VIAL IV SCH (08:09)
[2016-12-08] MEDS: ACETAMINOPHEN 650 MG/SUPP.RECT RC PRN (08:10)
[2016-12-08] MEDS: FAMOTIDINE/PF INJ 20 MG/2 ML VIAL IV SCH (08:10)
[2016-12-08] MEDS ORDERED: HYDROCODONE/APAP 10/325MG 1 EA TABLET ONE (08:47)
[2016-12-08] MEDS: HYDROCODONE/APAP 5/325MG 1 EACH TABLET PO PRN (08:49)
[2016-12-08] MEDS: LEVOTHYROXINE INJ 100 MCG VIAL IV SCH (10:50)
[2016-12-08] MEDS: MUPIROCIN OINT 2% 22 GM TUBE SCH ×2 (11:14→21:22)
[2016-12-08] MEDS ORDERED: MORPHINE SULFATE INJ 2 MG/ML DISP.SYRIN IV ONE (11:30)
[2016-12-08 12:00] VITALS: BP 108/66
[2016-12-08] MEDS: INSULIN REGULAR, HUMAN 100 UNIT/ML 3 ML VIAL SQ PRN ×2 (12:14→17:59)
[2016-12-08] MEDS ORDERED: IV NS 0.9% 1,000 ML IV PRN (14:30)
[2016-12-08] MEDS ORDERED: MORPHINE SULFATE INJ 2 MG/ML DISP.SYRIN IV PRN (14:30)
[2016-12-08 16:00] VITALS: BP 125/67
[2016-12-08] MEDS ORDERED: FEE PK DOSING 1 MIN EA MC ONE (17:04)
[2016-12-08 17:45] LABS: BILIRUBIN,DIRECT 0.2 mg/dL (0.0-0.2); BILIRUBIN,TOTAL 0.4 mg/dL (0.2-1.0)
[2016-12-08 17:46] LABS: APPEARANCE,URINE CLEAR (CLEAR); BILIRUBIN,URINE NEGATIVE (NEGATIVE); BLOOD, URINE TRACE Ery/uL (NEGATIVE); COLOR,URINE YELLOW (YELLOW); KETONES,URINE NEGATIVE (NEGATIVE); LEUKOCYTE ESTERASE ,URINE NEGATIVE (NEGATIVE); NITRITE, URINE NEGATIVE (NEGATIVE); PH,URINE 5.5 (5.0-8.0); PROTEIN,URINE 1+ mg/dl (NEGATIVE); UGLUCOSE NEGATIVE (NEGATIVE); UROBILINOGEN,URINE 0.2 EU/dL (0.2)
[2016-12-08 17:52] LABS: BACTERIA,URINE None seen /HPF (None Seen); SQUAMOUS EPITHELIAL CELL,UR Rare /HPF (None Seen); WBC,URINE 0-2 /HPF (0-3)
[2016-12-08] MEDS: VANCOMYCIN 0.75 GM in IV D5W 250 ML IV SCH (18:17)
[2016-12-08] MEDS: FLUCONAZOLE IN NS 200 MG in PREMIX 1 EA IV SCH ×2 (18:17)
[2016-12-08] MEDS: PIPERACILLIN /TAZOBACTAM 2.25 G in IV D5W 50 ML IV SCH (19:08)
[2016-12-08 20:00] VITALS: BP 136/57
[2016-12-08] MEDS: INSULIN DETEMIR 100 UNIT/ML CARTRIDGE SQ SCH (21:26)
[2016-12-09] VITALS: BP 136/57
[2016-12-09] MEDS: PIPERACILLIN /TAZOBACTAM 2.25 G in IV D5W 50 ML IV SCH ×5 (00:19→23:38)
[2016-12-09] MEDS: BLOOD SUGAR DIAGNOSTIC 1 EACH STRIP IN SCH ×5 (00:20→23:38)
[2016-12-09] MEDS: KEPPRA 500 MG in IV NS 100 ML IV SCH ×2 (00:20→12:21)
[2016-12-09 04:00] VITALS: BP 115/58
[2016-12-09 06:26] LABS: BASOPHILS % (AUTO) 0.1 % (0.0-2.0); EOSINOPHILS # (AUTO) 0.1 /CMM (0.0-0.7); EOSINOPHILS % (AUTO) 0.5 % (0.0-6.0); HEMATOCRIT 28 % (39-51); HEMOGLOBIN 8.9 g/dL (13.5-17.5); LYMPHOCYTES # (AUTO) 1.4 /CMM (0.8-4.8); LYMPHOCYTES % (AUTO) 7.3 % (20.0-44.0); MEAN CORPUSCULAR HEMOGLOBIN 33 PG (26.0-33.0); MEAN CORPUSCULAR HGB CONC 32 g/dl (31.0-36.0); MEAN CORPUSCULAR VOLUME 102 fL (80-96); MONOCYTES # (AUTO) 1.8 /CMM (0.1-1.30); MONOCYTES % (AUTO) 9.2 % (2.0-12.0); NEUTROPHILS # (AUTO) 15.8 /CMM (1.8-8.9); NEUTROPHILS % (AUTO) 82.9 % (43.0-81.0); PLATELET COUNT (AUTO) 319 /CMM (150-450); RDW COEFFICIENT OF VARIATION 14.9 (11.5-15.0); WHITE BLOOD COUNT (AUTO) 19.1 K/uL (4.3-11.0)
[2016-12-09 06:44] LABS: CALCIUM, SERUM 8.8 mg/dL (8.5-10.1); CREATININE 2.8 mg/dL (0.6-1.3); PHOSPHORUS 4.4 mg/dL (2.5-4.9); POTASSIUM 4.4 mmol/L (3.5-5.1)
[2016-12-09] MEDS: ACETAMINOPHEN 650 MG/SUPP.RECT RC PRN (07:56)
[2016-12-09 08:00] VITALS: BP 106/65
[2016-12-09] MEDS: MUPIROCIN OINT 2% 22 GM TUBE SCH ×2 (08:00→20:59)
[2016-12-09] MEDS: FUROSEMIDE 20 MG/2 ML VIAL IV SCH (08:00)
[2016-12-09] MEDS: FAMOTIDINE/PF INJ 20 MG/2 ML VIAL IV SCH (08:00)
[2016-12-09] MEDS: LEVOTHYROXINE INJ 100 MCG VIAL IV SCH (10:58)
[2016-12-09] MEDS ORDERED: DIATR MEGLU/DIATRIZOATE SODIUM 30 ML BOTTLE (GASTROGRAPHIN) ONE (11:00)
[2016-12-09 12:00] VITALS: BP 104/64
[2016-12-09] MEDS ORDERED: GLYTROL 1,000 ML BAG GT PRN (15:00)
[2016-12-09] MEDS ORDERED: EPOETIN ALFA (10,000 UNIT) 10,000 UNIT/ML VIAL SQ ONE (15:00)
[2016-12-09 16:00] VITALS: BP 110/60
[2016-12-09] MEDS: FLUCONAZOLE IN NS 200 MG in PREMIX 1 EA IV SCH ×2 (16:25)
[2016-12-09] MEDS: IV D5W 1,000 ML IV PRN (16:33)
[2016-12-09] MEDS: GLYTROL 1,000 ML BAG GT PRN (16:52)
[2016-12-09] MEDS: VANCOMYCIN 0.75 GM in IV D5W 250 ML IV SCH (16:53)
[2016-12-09] MEDS: INSULIN REGULAR, HUMAN 100 UNIT/ML 3 ML VIAL SQ PRN (18:15)
[2016-12-09 20:00] VITALS: BP 113/62
[2016-12-09] MEDS: INSULIN DETEMIR 100 UNIT/ML CARTRIDGE SQ SCH (21:04)
[2016-12-10] VITALS (7 sets, daily range): BP systolic 109–131; BP diastolic 59–76
[2016-12-10] MEDS: KEPPRA 500 MG in IV NS 100 ML IV SCH (00:37)
[2016-12-10] MEDS: PIPERACILLIN /TAZOBACTAM 2.25 G in IV D5W 50 ML IV SCH ×3 (05:10→18:16)
[2016-12-10] MEDS: BLOOD SUGAR DIAGNOSTIC 1 EACH STRIP IN SCH ×3 (05:10→17:44)
[2016-12-10] MEDS: INSULIN REGULAR, HUMAN 100 UNIT/ML 3 ML VIAL SQ PRN ×3 (05:18→17:47)
[2016-12-10 06:35] LABS: BASOPHILS % (AUTO) 0.1 % (0.0-2.0); EOSINOPHILS # (AUTO) 0.4 /CMM (0.0-0.7); EOSINOPHILS % (AUTO) 3.5 % (0.0-6.0); HEMATOCRIT 24 % (39-51); HEMOGLOBIN 7.8 g/dL (13.5-17.5); LYMPHOCYTES # (AUTO) 1.1 /CMM (0.8-4.8); LYMPHOCYTES % (AUTO) 9.7 % (20.0-44.0); MEAN CORPUSCULAR HEMOGLOBIN 33 PG (26.0-33.0); MEAN CORPUSCULAR HGB CONC 32 g/dl (31.0-36.0); MEAN CORPUSCULAR VOLUME 101 fL (80-96); MONOCYTES # (AUTO) 0.9 /CMM (0.1-1.30); MONOCYTES % (AUTO) 8.5 % (2.0-12.0); NEUTROPHILS # (AUTO) 8.6 /CMM (1.8-8.9); NEUTROPHILS % (AUTO) 78.2 % (43.0-81.0); PLATELET COUNT (AUTO) 332 /CMM (150-450); RDW COEFFICIENT OF VARIATION 15.3 (11.5-15.0); RED BLOOD CELL COUNT(AUTO) 2.38 MIL/uL (4.5-6.0); WHITE BLOOD COUNT (AUTO) 10.9 K/uL (4.3-11.0)
[2016-12-10 06:49] LABS: CALCIUM, SERUM 8.7 mg/dL (8.5-10.1); CREATININE 2.9 mg/dL (0.6-1.3); MAGNESIUM 1.9 mg/dL (1.8-2.4); PHOSPHORUS 3.7 mg/dL (2.5-4.9); POTASSIUM 3.5 mmol/L (3.5-5.1)
[2016-12-10] MEDS: FUROSEMIDE 20 MG/2 ML VIAL IV SCH (08:54)
[2016-12-10] MEDS: FAMOTIDINE/PF INJ 20 MG/2 ML VIAL IV SCH (08:54)
[2016-12-10] MEDS: MUPIROCIN OINT 2% 22 GM TUBE SCH ×2 (08:55→22:19)
[2016-12-10] MEDS: LEVOTHYROXINE INJ 100 MCG VIAL IV SCH (11:31)
[2016-12-10] MEDS: GLYTROL 1,000 ML BAG GT PRN (15:10)
[2016-12-10] MEDS: IV D5W 1,000 ML IV PRN (16:49)
[2016-12-10] MEDS: FLUCONAZOLE IN NS 200 MG in PREMIX 1 EA IV SCH ×2 (16:49)
[2016-12-10] MEDS: VANCOMYCIN 0.75 GM in IV D5W 250 ML IV SCH (17:01)
[2016-12-10] MEDS ORDERED: Z GUARD REMEDY 4 OZ OINT TP PRN (18:30)
[2016-12-10] MEDS: LEVETIRACETAM SOL (5 ML) 100 MG/ML UDC JT SCH (22:19)
[2016-12-10] MEDS: INSULIN DETEMIR 100 UNIT/ML CARTRIDGE SQ SCH (22:21)
[2016-12-11] VITALS (8 sets, daily range): BP systolic 106–138; BP diastolic 6–73
[2016-12-11] MEDS: BLOOD SUGAR DIAGNOSTIC 1 EACH STRIP IN SCH ×5 (00:17→23:16)
[2016-12-11] MEDS: INSULIN REGULAR, HUMAN 100 UNIT/ML 3 ML VIAL SQ PRN ×5 (00:19→23:18)
[2016-12-11] MEDS: PIPERACILLIN /TAZOBACTAM 2.25 G in IV D5W 50 ML IV SCH ×5 (00:28→23:16)
[2016-12-11 05:49] LABS: BASOPHILS % (AUTO) 0.5 % (0.0-2.0); EOSINOPHILS # (AUTO) 0.6 /CMM (0.0-0.7); EOSINOPHILS % (AUTO) 6.1 % (0.0-6.0); HEMATOCRIT 22 % (39-51); HEMOGLOBIN 7.3 g/dL (13.5-17.5); LYMPHOCYTES # (AUTO) 1.3 /CMM (0.8-4.8); MEAN CORPUSCULAR HEMOGLOBIN 33 PG (26.0-33.0); MEAN CORPUSCULAR HGB CONC 33 g/dl (31.0-36.0); MEAN CORPUSCULAR VOLUME 101 fL (80-96); MONOCYTES # (AUTO) 1.1 /CMM (0.1-1.30); MONOCYTES % (AUTO) 10.7 % (2.0-12.0); NEUTROPHILS # (AUTO) 6.9 /CMM (1.8-8.9); NEUTROPHILS % (AUTO) 69.7 % (43.0-81.0); PLATELET COUNT (AUTO) 313 /CMM (150-450); RDW COEFFICIENT OF VARIATION 14.8 (11.5-15.0); RED BLOOD CELL COUNT(AUTO) 2.18 MIL/uL (4.5-6.0); WHITE BLOOD COUNT (AUTO) 9.9 K/uL (4.3-11.0)
[2016-12-11 06:07] LABS: CALCIUM, SERUM 8.4 mg/dL (8.5-10.1); CREATININE 2.8 mg/dL (0.6-1.3); MAGNESIUM 1.8 mg/dL (1.8-2.4); POTASSIUM 3.7 mmol/L (3.5-5.1)
[2016-12-11] MEDS: FUROSEMIDE 20 MG/2 ML VIAL IV SCH (09:27)
[2016-12-11] MEDS: LEVETIRACETAM SOL (5 ML) 100 MG/ML UDC JT SCH ×2 (09:27→21:45)
[2016-12-11] MEDS: FAMOTIDINE/PF INJ 20 MG/2 ML VIAL IV SCH (09:28)
[2016-12-11] MEDS: MUPIROCIN OINT 2% 22 GM TUBE SCH ×2 (09:28→21:46)
[2016-12-11] MEDS: GLYTROL 1,000 ML BAG GT PRN (10:00)
[2016-12-11] MEDS: LEVOTHYROXINE INJ 100 MCG VIAL IV SCH (11:21)
[2016-12-11] MEDS ORDERED: EPOETIN ALFA (20,000 UNIT) 20,000 UNIT/ML VIAL SQ ONE (14:00)
[2016-12-11] MEDS: LACTOBACILLUS RHAMNOSUS GG 1 EACH CAP.SPRINK PO SCH (16:44)
[2016-12-11] MEDS: VANCOMYCIN 0.75 GM in IV D5W 250 ML IV SCH (17:01)
[2016-12-11] MEDS: INSULIN DETEMIR 100 UNIT/ML CARTRIDGE SQ SCH (23:18)
[2016-12-11] MEDS: HYDROCODONE/APAP 5/325MG 1 EACH TABLET PO PRN (23:21)
[2016-12-12] VITALS (10 sets, daily range): BP systolic 101–126; BP diastolic 60–82
[2016-12-12] MEDS: GLYTROL 1,000 ML BAG GT PRN (03:29)
[2016-12-12] MEDS: PIPERACILLIN /TAZOBACTAM 2.25 G in IV D5W 50 ML IV SCH ×4 (05:03→23:24)
[2016-12-12] MEDS: BLOOD SUGAR DIAGNOSTIC 1 EACH STRIP IN SCH ×4 (05:32→23:24)
[2016-12-12] MEDS: HYDROCODONE/APAP 5/325MG 1 EACH TABLET PO PRN (05:33)
[2016-12-12 06:42] LABS: BASOPHILS % (AUTO) 0.3 % (0.0-2.0); EOSINOPHILS # (AUTO) 0.4 /CMM (0.0-0.7); EOSINOPHILS % (AUTO) 5.1 % (0.0-6.0); HEMATOCRIT 22 % (39-51); HEMOGLOBIN 7.3 g/dL (13.5-17.5); LYMPHOCYTES # (AUTO) 1.1 /CMM (0.8-4.8); LYMPHOCYTES % (AUTO) 13.3 % (20.0-44.0); MEAN CORPUSCULAR HEMOGLOBIN 33 PG (26.0-33.0); MEAN CORPUSCULAR HGB CONC 33 g/dl (31.0-36.0); MEAN CORPUSCULAR VOLUME 99 fL (80-96); MONOCYTES # (AUTO) 0.7 /CMM (0.1-1.30); MONOCYTES % (AUTO) 8.7 % (2.0-12.0); NEUTROPHILS # (AUTO) 6.3 /CMM (1.8-8.9); NEUTROPHILS % (AUTO) 72.6 % (43.0-81.0); PLATELET COUNT (AUTO) 361 /CMM (150-450); RDW COEFFICIENT OF VARIATION 14.9 (11.5-15.0); RED BLOOD CELL COUNT(AUTO) 2.21 MIL/uL (4.5-6.0); WHITE BLOOD COUNT (AUTO) 8.6 K/uL (4.3-11.0)
[2016-12-12 07:00] LABS: CALCIUM, SERUM 8.8 mg/dL (8.5-10.1); CREATININE 2.7 mg/dL (0.6-1.3); POTASSIUM 3.6 mmol/L (3.5-5.1)
[2016-12-12 07:04] LABS: IRON, SERUM 26 ug/dl (50-175); TOTAL IRON BINDING CAPACITY 100 ug/dl (250-450)
[2016-12-12 07:46] LABS: FERRITIN 1689 ng/mL (8-388)
[2016-12-12] MEDS: LEVETIRACETAM SOL (5 ML) 100 MG/ML UDC JT SCH ×2 (08:35→21:11)
[2016-12-12] MEDS: MUPIROCIN OINT 2% 22 GM TUBE SCH ×2 (08:36→21:12)
[2016-12-12] MEDS: FAMOTIDINE/PF INJ 20 MG/2 ML VIAL IV SCH (08:36)
[2016-12-12] MEDS: FUROSEMIDE 20 MG/2 ML VIAL IV SCH (08:36)
[2016-12-12] MEDS: LACTOBACILLUS RHAMNOSUS GG 1 EACH CAP.SPRINK PO SCH ×2 (08:36→17:00)
[2016-12-12] MEDS: LEVOTHYROXINE INJ 100 MCG VIAL IV SCH (11:46)
[2016-12-12] MEDS: VANCOMYCIN 0.75 GM in IV D5W 250 ML IV SCH (17:00)
[2016-12-12] MEDS: INSULIN REGULAR, HUMAN 100 UNIT/ML 3 ML VIAL SQ PRN (18:12)
[2016-12-12] MEDS: INSULIN DETEMIR 100 UNIT/ML CARTRIDGE SQ SCH (22:00)
[2016-12-13] VITALS: BP 110/67
[2016-12-13] MEDS ORDERED: IV NS 0.9% 250 ML BAG IV PRN
[2016-12-13 04:00] VITALS: BP 100/59
[2016-12-13] MEDS: GLYTROL 1,000 ML BAG GT PRN (05:50)
[2016-12-13] MEDS: PIPERACILLIN /TAZOBACTAM 2.25 G in IV D5W 50 ML IV SCH ×3 (05:51→17:04)
[2016-12-13] MEDS: BLOOD SUGAR DIAGNOSTIC 1 EACH STRIP IN SCH ×3 (06:06→17:03)
[2016-12-13 06:54] LABS: CREATININE 2.7 mg/dL (0.6-1.3); MAGNESIUM 1.9 mg/dL (1.8-2.4); PHOSPHORUS 4.7 mg/dL (2.5-4.9); POTASSIUM 3.7 mmol/L (3.5-5.1)
[2016-12-13 07:28] LABS: BASOPHILS # (AUTO) 0.1 /CMM (0.0-0.2); BASOPHILS % (AUTO) 0.4 % (0.0-2.0); EOSINOPHILS # (AUTO) 0.5 /CMM (0.0-0.7); EOSINOPHILS % (AUTO) 4.6 % (0.0-6.0); HEMATOCRIT 27 % (39-51); HEMOGLOBIN 8.8 g/dL (13.5-17.5); LYMPHOCYTES # (AUTO) 1.4 /CMM (0.8-4.8); LYMPHOCYTES % (AUTO) 12.1 % (20.0-44.0); MEAN CORPUSCULAR HEMOGLOBIN 32 PG (26.0-33.0); MEAN CORPUSCULAR HGB CONC 33 g/dl (31.0-36.0); MEAN CORPUSCULAR VOLUME 97 fL (80-96); MONOCYTES # (AUTO) 0.9 /CMM (0.1-1.30); MONOCYTES % (AUTO) 7.8 % (2.0-12.0); NEUTROPHILS # (AUTO) 8.9 /CMM (1.8-8.9); NEUTROPHILS % (AUTO) 75.1 % (43.0-81.0); PLATELET COUNT (AUTO) 371 /CMM (150-450); RDW COEFFICIENT OF VARIATION 16.6 (11.5-15.0); RED BLOOD CELL COUNT(AUTO) 2.79 MIL/uL (4.5-6.0); WHITE BLOOD COUNT (AUTO) 11.9 K/uL (4.3-11.0)
[2016-12-13 08:00] VITALS: BP 118/72
[2016-12-13] MEDS: LEVETIRACETAM SOL (5 ML) 100 MG/ML UDC JT SCH (09:01)
[2016-12-13] MEDS: FUROSEMIDE 20 MG/2 ML VIAL IV SCH (09:01)
[2016-12-13] MEDS: LACTOBACILLUS RHAMNOSUS GG 1 EACH CAP.SPRINK PO SCH ×2 (09:02→17:03)
[2016-12-13] MEDS: FAMOTIDINE/PF INJ 20 MG/2 ML VIAL IV SCH (09:02)
[2016-12-13] MEDS: MUPIROCIN OINT 2% 22 GM TUBE SCH (09:03)
[2016-12-13 10:04] LABS: BAND % (MANUAL) 1 % (0.0-5.0); EOSINOPHILS % (MANUAL) 3 % (0-4); LYMPHOCYTES % (MANUAL) 13 % (16-48); MONOCYTES % (MANUAL) 2 % (0-11.0); NEUTROPHILS % (MANUAL) 81 (42-76)
[2016-12-13 12:00] VITALS: BP 115/68
[2016-12-13] MEDS: LEVOTHYROXINE INJ 100 MCG VIAL IV SCH (12:18)
[2016-12-13] MEDS: INSULIN REGULAR, HUMAN 100 UNIT/ML 3 ML VIAL SQ PRN (12:20)
[2016-12-13 16:00] VITALS: BP 106/65
[2016-12-13] MEDS: VANCOMYCIN 0.75 GM in IV D5W 250 ML IV SCH (17:00)
== END 2016-12-13 18:20 | DRG 252 ==
LOC: ER 11:58 → TELE1 14:18
PROVIDERS: ADMIT Internal Medicine; ATTEND Internal Medicine
PROC: 5A1955Z Respiratory Ventilation, Greater than 96 Consecutive Hours (ICD-10-PCS; principal; 2016-12-06)
PROC: 05H533Z Insertion of Infusion Device into Right Subclavian Vein, Percutaneous Approach (ICD-10-PCS; 2016-12-08)
PROC: 0DHA3UZ Insertion of Feeding Device into Jejunum, Percutaneous Approach (ICD-10-PCS; 2016-12-09)
PROC: 30233N1 Transfusion of Nonautologous Red Blood Cells into Peripheral Vein, Percutaneous Approach (ICD-10-PCS; 2016-12-12)
DX: K94.13 Enterostomy malfunction (principal); J69.0 Pneumonitis due to inhalation of food and vomit; G93.40 Encephalopathy, unspecified; Z99.11 Dependence on respirator [ventilator] status; N17.9 Acute kidney failure, unspecified; J96.11 Chronic respiratory failure with hypoxia; R53.2 Functional quadriplegia; E87.0 Hyperosmolality and hypernatremia; Z93.0 Tracheostomy status; Y83.3 Surgical operation with formation of external stoma as the cause of abnormal reaction of the patient, or of later complication, without mention of misadventure at the time of the procedure; N18.9 Chronic kidney disease, unspecified; I12.9 Hypertensive chronic kidney disease with stage 1 through stage 4 chronic kidney disease, or unspecified chronic kidney disease; E86.0 Dehydration; D53.9 Nutritional anemia, unspecified; E03.9 Hypothyroidism, unspecified; E11.22 Type 2 diabetes mellitus with diabetic chronic kidney disease; E83.51 Hypocalcemia; E88.09 Other disorders of plasma-protein metabolism, not elsewhere classified; G40.909 Epilepsy, unspecified, not intractable, without status epilepticus; N39.0 Urinary tract infection, site not specified; R13.10 Dysphagia, unspecified; Z79.899 Other long term (current) drug therapy; Y81.3 Surgical instruments, materials and general- and plastic-surgery devices (including sutures) associated with adverse incidents; Y92.129 Unspecified place in nursing home as the place of occurrence of the external cause; B95.7 Other staphylococcus as the cause of diseases classified elsewhere
CPT/HCPCS: 31720; 36415; 36569; 71010-TC; 74000-TC; 80048-TC; 80076-TC; 80202-TC; 81000-TC; 82247-TC; 82248-TC; 82728-TC; 82962-TC; 83540-TC; 83605-TC; 83735-TC; 84100-TC; 85025-TC; 85610-TC; 85730-TC; 86850-TC; 86921-TC; 87040-TC; 87081-TC; 87086-TC; 94003-TC; 94760-TC; 94762-TC; A4216; A4349; A4606; A6402; J0885; J1450; J1815; J1940; J1953; J2270; J2543; J3370; J3490; J7030; J7040; J7042; J7050; J7060; J7070; J8597; P9016-BL; Q9963; Z7610

== ENCOUNTER 2017-01-03 10:28 | Emergency (ER) | payer MEDICAID ==
[~2017-01-03] VITALS: Ht 165.1 cm; Wt 68.0 kg
[~2017-01-03 10:28] MED LIST changes: +ACET160S2 GT; -ACET650T10 GT; -ALLA266C2 TP; -CHLO25TA13 GT; -DIPH1TAB PO; -ENOX30DI SQ; +FAMO40TA7 GT; -FOLI0.8T2 GT; +FURO20TA4 GT; -FURO20TA4 PO; +HYDR-552 PO; -INSU100V28 SQ; +INSU100V3 SQ; -LACT1CAP72 PO; -LEVE500T9 GT; -LEVO25TA7 GT; +LEVO25TA9 GT; +METO5SOL GT; -NEOM15OI3 TP; -NUT.237L67 GT; -Nutritional Supplement GT; -OMEP40CA37 GT; -PHEN100O4 GT; -PROP40TA7 GT; -VIT1TABL44 GT
--- NOTE | 2017-01-03 10:40 | NUR ---
PT BIBA FOR JTUBE DISLODGED. PT ON VENT/TRACH. RT AT BS. MD AT BS FOR TEMPORARY TUBE PLACEMENT. SAFETY AND COMFORT MEASURES PROVIDED. WILL MONITOR.
[2017-01-03] MEDS ORDERED: DIATR MEGLU/DIATRIZOATE SODIUM 30 ML BOTTLE (GASTROGRAPHIN) ONE (10:46)
[2017-01-03 10:50] VITALS: BP 128/71
--- NOTE | 2017-01-03 10:50 | NUR ---
HAIR OR BEAUTY SALON ASSISTANT AT BEDSIDE
[2017-01-03] MEDS ORDERED: DIATR MEGLU/DIATRIZOATE SODIUM 30 ML BOTTLE (GASTROGRAPHIN) PO ONE (11:00)
--- NOTE | 2017-01-03 11:27 | NUR ---
CALLED [facility] FOR RT TRANSPORT BACK TO FACILITY. ETA 90 MINUTES
[2017-01-03 12:00] VITALS: BP 122/70
--- NOTE | 2017-01-03 12:50 | NUR ---
REPORT GIVEN TO [facility] STAFF [facility].
--- NOTE | 2017-01-03 12:55 | NUR ---
Patient discharged to facility in stable condition. Written and verbal after care instructions given.
== END 2017-01-03 12:55 ==
LOC: ER 10:29
DX: K94.23 Gastrostomy malfunction (principal); G93.40 Encephalopathy, unspecified; I10 Essential (primary) hypertension; E03.9 Hypothyroidism, unspecified; E11.9 Type 2 diabetes mellitus without complications; F32.9 Major depressive disorder, single episode, unspecified; G40.909 Epilepsy, unspecified, not intractable, without status epilepticus; Z79.4 Long term (current) use of insulin; Z91.5 Personal history of self-harm; Z99.11 Dependence on respirator [ventilator] status
CPT/HCPCS: 43760; 74000; 99284; A4606; Q9963 ×2; Z7610

== ENCOUNTER 2017-01-03 14:02 | Emergency (ER) | payer MEDICAID ==
[~2017-01-03] VITALS: Ht 165.1 cm; Wt 68.0 kg
--- NOTE | 2017-01-03 14:10 | NUR ---
PT TEENA FROM SNF GTUBE DISLODGED. VENT-TRACH. VSS. SEEN BY MD. SAFETY AND COMFORT MEASURES PROVIDED. WILL MONITOR.
[2017-01-03] MEDS ORDERED: DIATR MEGLU/DIATRIZOATE SODIUM 30 ML BOTTLE (GASTROGRAPHIN) ONE (14:33)
--- NOTE | 2017-01-03 14:50 | NUR ---
ELLIS AT BS.
--- NOTE | 2017-01-03 15:44 | NUR ---
ANGELIKA CALLED, SPOKE TO PARTHA ERAZO 17:36.
[2017-01-03 16:34] VITALS: BP 104/65
--- NOTE | 2017-01-03 17:17 | NUR ---
REPORT GIVEN TO [facility] STAFF FOR TRANSPORT BACK TO [facility].
== END 2017-01-03 17:18 ==
LOC: ER 14:03
DX: K94.13 Enterostomy malfunction (principal); E03.9 Hypothyroidism, unspecified; E11.9 Type 2 diabetes mellitus without complications; F32.9 Major depressive disorder, single episode, unspecified; G40.909 Epilepsy, unspecified, not intractable, without status epilepticus; G93.40 Encephalopathy, unspecified; I10 Essential (primary) hypertension; Z79.4 Long term (current) use of insulin; Z91.5 Personal history of self-harm; Z93.0 Tracheostomy status; Z93.1 Gastrostomy status
CPT/HCPCS: 44799; 74000; 99284; A4606; Q9963; Z7610

== ENCOUNTER 2017-01-04 14:32 | Emergency (ER) | payer MEDICAID ==
[~2017-01-04] VITALS: Ht 167.6 cm; Wt 68.0 kg
--- NOTE | 2017-01-04 14:32 | NUR ---
BB PRIVATE EMS FROM [facility] FOR DEFLATED JTUBE. PER REPORT PT ALSO HERE YESTERDAY FOR SAME ISSUE AND WAS RESOLVED. NAD NOTED. PT ON VENTILATOR, RT AT BEDSIDE. RR EVEN AND UNLABORED. PLACED ON MONITOR. MD AT BEDSIDE FOR EVAL.
--- NOTE | 2017-01-04 15:00 | NUR ---
PAGED DR FIERRO FOR GI CONSULT, WAITING FOR RETURN CALL
[2017-01-04] MEDS ORDERED: DIATR MEGLU/DIATRIZOATE SODIUM 30 ML BOTTLE (GASTROGRAPHIN) ONE (15:20)
--- NOTE | 2017-01-04 15:30 | NUR ---
XRAY AT BEDSIDE FOR KUB
[2017-01-04] MEDS: DIATR MEGLU/DIATRIZOATE SODIUM 30 ML BOTTLE (GASTROGRAPHIN) PO ONE (15:36)
--- NOTE | 2017-01-04 18:28 | NUR ---
CALLED [facility] FOR TRANSPORT, ETA OF 2030 WAS GIVEN.
--- NOTE | 2017-01-04 19:39 | NUR ---
AWAITING RT FOR TRANSFER.
[2017-01-04 20:06] VITALS: BP 122/74
--- NOTE | 2017-01-04 20:15 | NUR ---
STILL AWAITING RT. NAD NOTED.
[2017-01-04 21:06] VITALS: BP 123/77
--- NOTE | 2017-01-04 21:07 | NUR ---
RT AT BEDSIDE. STILL WAITING FOR NURSE.
--- NOTE | 2017-01-04 21:22 | NUR ---
REPORT GIVEN TO GABE/ FROM [facility]. TO BE TRANSPORTED BACK HOME.
--- NOTE | 2017-01-04 21:25 | NUR ---
Patient discharged to home in stable condition. Written and verbal after care instructions given. Patient verbalizes understanding of instruction.
== END 2017-01-04 21:25 | disposition home or self-care (01) ==
LOC: ER 14:33
DX: K94.23 Gastrostomy malfunction (principal); G93.40 Encephalopathy, unspecified; I10 Essential (primary) hypertension; E03.9 Hypothyroidism, unspecified; G40.909 Epilepsy, unspecified, not intractable, without status epilepticus; F32.9 Major depressive disorder, single episode, unspecified; Z93.0 Tracheostomy status; Z79.4 Long term (current) use of insulin
CPT/HCPCS: 74000-TC; A4606; Q9963; Z7610

== ENCOUNTER 2017-03-15 14:36 | Inpatient (IN) | payer MEDICAID ==
[~2017-03-15] VITALS: Ht 175.3 cm; Wt 75.4 kg
[~2017-03-15 14:36] MED LIST changes: -FURO20TA4 GT; +FURO20TA4 JT; +HYDR-552 JT; -HYDR-552 PO; -LEVE100S GT; +LEVE100S JT; -LEVO25TA9 GT; +LEVO25TA9 JT; -METO5SOL GT; +METO5SOL JT
--- NOTE | 2017-03-15 14:55 | NUR ---
PT TO ED ROOM 03. Yellow fluid leaking from J-Tube since this morning. A/A/O x 0. SIDE RAILS UP. HOB ELEVATED. CONNECTED TO MONITOR. SEEN AND EVALUATED BY ED PROVIDER. SEPSIS PROTOCOL INITIATED.
--- NOTE | 2017-03-15 15:00 | NUR ---
BLOOD CULTURES OBTAINED PRIOR TO IV ATB THERAPY.
[2017-03-15 15:20] LABS: BASOPHILS # (AUTO) 0.1 /CMM (0.0-0.2); BASOPHILS % (AUTO) 0.7 % (0.0-2.0); EOSINOPHILS # (AUTO) 0.4 /CMM (0.0-0.7); EOSINOPHILS % (AUTO) 2.7 % (0.0-6.0); HEMATOCRIT 21 % (39-51); LYMPHOCYTES # (AUTO) 1.1 /CMM (0.8-4.8); LYMPHOCYTES % (AUTO) 7.5 % (20.0-44.0); MEAN CORPUSCULAR HEMOGLOBIN 30 PG (26.0-33.0); MEAN CORPUSCULAR HGB CONC 32 g/dl (31.0-36.0); MEAN CORPUSCULAR VOLUME 96 fL (80-96); MONOCYTES # (AUTO) 0.9 /CMM (0.1-1.30); MONOCYTES % (AUTO) 6.2 % (2.0-12.0); NEUTROPHILS # (AUTO) 12.2 /CMM (1.8-8.9); NEUTROPHILS % (AUTO) 82.9 % (43.0-81.0); PLATELET COUNT (AUTO) 509 /CMM (150-450); RDW COEFFICIENT OF VARIATION 17.6 (11.5-15.0); WHITE BLOOD COUNT (AUTO) 14.7 K/uL (4.3-11.0)
[2017-03-15] MEDS ORDERED: DIATR MEGLU/DIATRIZOATE SODIUM 30 ML BOTTLE (GASTROGRAPHIN) ONE (15:22)
[2017-03-15 15:23] LABS: HEMOGLOBIN 6.7 g/dL (13.5-17.5)
[2017-03-15] MEDS ORDERED: CEFTRIAXONE 1GM BAG (ER ONLY) 50 ML IV ONE ×2 (15:23→15:30)
[2017-03-15 15:29] VITALS: BP 116/64
[2017-03-15 15:29] LABS: INR 1.09 (0.87-1.13); PROTHROMBIN TIME 11.3 SECS (9.5-12.7)
[2017-03-15] MEDS ORDERED: DIATR MEGLU/DIATRIZOATE SODIUM 120 ML BOTTLE (GASTROGRAPHIN) PO ONE (15:30)
[2017-03-15] MEDS ORDERED: VANCOMYCIN 1 GM in IV D5W 250 ML IV ONE (15:30)
[2017-03-15] MEDS ORDERED: IV NS 0.9% 1,000 ML BAG IV ONE (15:30)
[2017-03-15 15:32] LABS: ALBUMIN 2.2 g/dL (3.4-5.0); BILIRUBIN,DIRECT 0.1 mg/dL (0.0-0.2); BILIRUBIN,TOTAL 0.3 mg/dL (0.2-1.0); CALCIUM, SERUM 9.9 mg/dL (8.5-10.1); CREATININE 4.5 mg/dL (0.6-1.3); POTASSIUM 4.1 mmol/L (3.5-5.1); TOTAL PROTEIN, SERUM 8.3 g/dL (6.4-8.2)
--- NOTE | 2017-03-15 15:32 | NUR ---
RT NOTE PT PLACED ON VENT PER MD ORDER. SETTINGS ENDORSED BY TRANSPORT RT AC 16 500 30% +5. PT VENTILATED VIA TRACH TUBE WITH INFLATED CUFF. ALARMS SET PER PROTOCOL AND AUDIBLE. AMBU BAG AT BED SIDE. NO DISTRESS NOTED. WILL CONTINUE TO MONITOR. Addendum: 03/15/17 at 1535 by ANDREAS SALAMANCA RT Amended: Links added.
--- NOTE | 2017-03-15 15:38 | NUR ---
VENT SETTINGS: 16/500/30%/PEEP=5
[2017-03-15] MEDS ORDERED: POTA20LI4 JT (15:47)
[2017-03-15] MEDS ORDERED: CHLO25TA13 JT (15:47)
[2017-03-15] MEDS ORDERED: FOLI0.8T2 GT (15:47)
[2017-03-15] MEDS ORDERED: PROP40TA7 JT (15:47)
[2017-03-15] MEDS ORDERED: PHEN100C4 JT (15:47)
[2017-03-15] MEDS ORDERED: PANTOPRAZOLE 40 MG VIAL ONE (15:52)
[2017-03-15] MEDS ORDERED: PANTOPRAZOLE 40 MG VIAL IV ONE (16:00)
--- NOTE | 2017-03-15 16:21 | NUR ---
Patient is resting comfortably in bed with eyes closed. Easily aroused. VSS
--- NOTE | 2017-03-15 16:25 | NUR ---
CALLED [facility], PAGED DR ARMIJO.
--- NOTE | 2017-03-15 16:32 | NUR ---
REPORT GIVEN TO LAURNY 120-1 GA.
[2017-03-15 17:44] LABS: BAND % (MANUAL) 10 % (0.0-5.0); EOSINOPHILS % (MANUAL) 4 % (0-4); LYMPHOCYTES % (MANUAL) 6 % (16-48); MONOCYTES % (MANUAL) 2 % (0-11.0); NEUTROPHILS % (MANUAL) 78 (42-76)
[2017-03-15 18:00] VITALS: BP 100/51
--- NOTE | 2017-03-15 18:00 | NUR ---
RN NOTE RECEIVED PT ON BED, OBTUNDED, ON MECH VENT, NO SOB, J TUBE IN PLACE, SITE INFLAMED, RED, NO DRAINAGE, ON TELE MONITOR ST 113, NO EDEMA, LUNGS RHONCHI, IV LINES IN PLACE IN R HAND AND UPPER ARM, CLEANED, LINEN CHANGED, BED IN LOW AN LOCKED POSITION. CALL LIGHT WITHIN REACH. WILL WAIT FOR DR HUANG FOR ADMITTING ORDERS AND ENDORSE TO REFRIGERATOR MOVER.
[2017-03-15] MEDS ORDERED: IV NS 0.9% 1,000 ML BAG IV PRN (19:00)
[2017-03-15] MEDS ORDERED: DEXTROSE 50%-WATER 50 ML DISP.SYRIN IV PRN (19:00)
[2017-03-15 20:00] VITALS: BP 144/54
[2017-03-15] MEDS ORDERED: HYDROCODONE/APAP 5/325MG 1 EACH TABLET GT PRN (21:00)
[2017-03-15] MEDS ORDERED: INSULIN REGULAR, HUMAN 100 UNIT/ML 3 ML VIAL SQ PRN (21:00)
[2017-03-15] MEDS ORDERED: chlorproMAZINE HCL 25 MG TABLET GT PRN (21:00)
[2017-03-15] MEDS: PROPRANOLOL HCL 40 MG TABLET GT SCH (21:47)
[2017-03-15] MEDS: IV NS 0.9% 1,000 ML IV PRN (23:00)
[2017-03-15 23:21] VITALS: BP 99/65
[2017-03-16] VITALS (11 sets, daily range): BP systolic 91–110; BP diastolic 43–64
[2017-03-16] MEDS: BLOOD SUGAR DIAGNOSTIC 1 EACH STRIP IN SCH ×4 (01:06→16:41)
[2017-03-16 06:55] LABS: BASOPHILS % (AUTO) 0.2 % (0.0-2.0); EOSINOPHILS # (AUTO) 0.5 /CMM (0.0-0.7); EOSINOPHILS % (AUTO) 2.7 % (0.0-6.0); HEMATOCRIT 22 % (39-51); HEMOGLOBIN 7.2 g/dL (13.5-17.5); LYMPHOCYTES # (AUTO) 1.2 /CMM (0.8-4.8); LYMPHOCYTES % (AUTO) 6.8 % (20.0-44.0); MEAN CORPUSCULAR HEMOGLOBIN 32 PG (26.0-33.0); MEAN CORPUSCULAR HGB CONC 33 g/dl (31.0-36.0); MEAN CORPUSCULAR VOLUME 96 fL (80-96); MONOCYTES # (AUTO) 1.5 /CMM (0.1-1.30); MONOCYTES % (AUTO) 8.6 % (2.0-12.0); NEUTROPHILS # (AUTO) 14.1 /CMM (1.8-8.9); NEUTROPHILS % (AUTO) 81.7 % (43.0-81.0); PLATELET COUNT (AUTO) 392 /CMM (150-450); RDW COEFFICIENT OF VARIATION 18.3 (11.5-15.0); RED BLOOD CELL COUNT(AUTO) 2.28 MIL/uL (4.5-6.0); WHITE BLOOD COUNT (AUTO) 17.2 K/uL (4.3-11.0)
[2017-03-16 07:24] LABS: CALCIUM, SERUM 9.4 mg/dL (8.5-10.1); MAGNESIUM 2.4 mg/dL (1.8-2.4); PHOSPHORUS 4.8 mg/dL (2.5-4.9); POTASSIUM 4.3 mmol/L (3.5-5.1)
--- NOTE | 2017-03-16 07:41 | NUR ---
GENERAL DOC NOTE RECEIVED PT ON BED, OBTUNDED, WITH TRACH TO MECH VENT ORDERED . AMBU BAG AT HOB NO SOB, J TUBE IN PLACE, SITE INFLAMED, RED,WITH GREENISH DRAINAGE NOTED ON DRESSING AT THIS TIME DRAINAGE, ON TELE MONITOR SR 91, NO EDEMA, , IV LINES IN PLACE IN R HAND AND UPPER ARM, CLEANED, , BED IN LOW AN LOCKED POSITION. CALL LIGHT WITHIN REACH. WILL , STILL ON HOLF J TUBE FEEDING WILL CLARIFY WITH MD , KEEP HOB ELEVATED AT ALL TIME , WILL MONITOR CLOSELY Addendum: 03/16/17 at 1651 by LAILA GRADY RN [id number] CORRECTION WITH EDEMA BOTH HANDS PLUS 3, KEEP BOTH HAND ELEVATED AT ALL TIME
[2017-03-16 08:57] LABS: BAND % (MANUAL) 19 % (0.0-5.0); EOSINOPHILS % (MANUAL) 3 % (0-4); LYMPHOCYTES % (MANUAL) 3 % (16-48); MONOCYTES % (MANUAL) 4 % (0-11.0); NEUTROPHILS % (MANUAL) 71 (42-76)
[2017-03-16] MEDS: LEVETIRACETAM SOL (5 ML) 100 MG/ML UDC GT SCH ×2 (09:01→16:36)
[2017-03-16] MEDS: VIT B CMPLX 3/FA/VIT C/BIOTIN 1 TAB TABLET GT SCH (09:02)
[2017-03-16] MEDS: POTASSIUM CHLORIDE 10 MEQ TABLET.SA GT SCH (09:06)
[2017-03-16] MEDS: PROPRANOLOL HCL 40 MG TABLET GT SCH ×2 (09:07→21:15)
[2017-03-16] MEDS: FUROSEMIDE 20 MG TABLET GT SCH (09:08)
--- NOTE | 2017-03-16 09:51 | NUR ---
AREA FORESTER NOTE SPOKE WITH DR ORNELAS NOTIFIED THAT G TUBE SITE WITH SEVERE LEAKAGE GREENISH COLOR DRAINAGE, HELD GTUBE FEEDING AT THIS TIME , STATED ITS OK TO HOLD G TUBE FEEDING , ALSO NOTIFIED THAT HG 7.2 I INIT PRBC WAS TRANSFUSE LAST NIGHT , NO NEW ORDER GIVE AT THIS TIME ,WILL F\U
--- NOTE | 2017-03-16 10:18 | NUR ---
IRON SETTER NOTE SEEN BY DR NEWSOME INTERPRETIVE NATURALIST NOTIFIED THAT PATIENT AND MOD AMT SECRETIN , ALSO G TUBE SITE WITH CELLULITIS AND LARGE AMT SECRETION , WILL F]U
[2017-03-16] MEDS: LEVOTHYROXINE SODIUM 25 MCG TABLET GT SCH ×2 (11:30→11:34)
[2017-03-16] MEDS: PHENYTOIN SUSP UDC 100 MG/4 ML UDC GT SCH (12:31)
--- NOTE | 2017-03-16 13:00 | NUR ---
DIE STAMPING PRESS OPERATOR NOTE NOTE LESS DRAINAGE FROM G TUBE G TUBE SITE , G TUBE FEEDING AT 20 ML PER HOUR STARTED MAX DOSE 35 ML,PER HOUR KEEP HOB ELEVATED AT ALL TIME , WILL CONT TO MONITOR CLOSELY
[2017-03-16] MEDS: RENAL NOVASOURCE 1,000 ML BOTTLE GT PRN (13:07)
[2017-03-16] MEDS: IV NS 0.9% 1,000 ML IV PRN (13:24)
--- NOTE | 2017-03-16 14:00 | NUR ---
SINGLE STAYER OPERATOR NOTE SPOKE WITH DIETITIAN NOTIFIED THAT PER ORDER G TUBE FEEDING 35 ML PER HOUR, STATED OK TO START AND MONITOR CLOSELY
[2017-03-16] MEDS ORDERED: chlorproMAZINE HCL 25 MG TABLET GT PRN (15:00)
--- NOTE | 2017-03-16 16:30 | NUR ---
DATE NIGHT CAREGIVER NOTE CALLED TO DR ORNELAS NOTICED THT PATIENT HAS EDEMA BOTH HANDS, PITTING EDEMA PLUS 3 ,KEEP ELEVATED , ON CHEST XRAY MILD VASCULARE CONGESTION , ALSO PATIENT ON IVF NS AR 100 ML PER HOUR ALSO AWARE THAT G TUBE FEEDINGS STOMA LESS DRAINAGE, OK TO START G TUBE FEEDING ORDERED AMD MONITOR CLOSELY , AND STOP IVF, WILL F\U ,
[2017-03-16] MEDS: METOCLOPRAMIDE HCL 10 MG/10 ML UDC GT SCH (17:13)
--- NOTE | 2017-03-16 17:35 | NUR ---
GAS TORCH SOLDERER NOTE PATENT SEEN BY JAYDEN MALDONADO WARP COILER , NOTIFIED THAT AT J TUBE SITE STOMA WITH SEVERE REDNESS AND LEAKAGE WIT GREENISH COLOR DRAINAGE ,WAS IN AM SEVERE AMT BUT AT THIS TIME MUCH LESS,PATIENT ON G TUBE FEEDING AT AT THIS AT 20 ML PER HOUR ,WILL CONTR TO TO INCREASE UP TO MAX DOSE 35 ML PER HOUR PER ORDER, STATED ITS OK CONT FEEDING AND MONITOR FOR TOLERANCE, ALSO GIVE ORDER FOR LOCAL TX AT J TUBE SITE REDNESS,ORDER CARRIED OUT
--- NOTE | 2017-03-16 17:47 | NUR ---
FITNESS AND WELLNESS COORDINATOR NOTE NOTIFIED TO MADAN RN WOOD PRESERVING PLANT LABORER ID THAT WBC TODAY 17.2 ,STATED THAT WILL CHECK IT OUT
--- NOTE | 2017-03-16 18:41 | NUR ---
DIRECTOR OF ENTERPRISE STRATEGY NOTE J TUBE SITE WITH SMALL AMT OF DRAINAGE NOTED KEEP CLEAN DRY , ALL NEEDS ATTENDED , TRACH CARE DONE , CONT ON VENT SETTING ORDERED, WILL CONT TO MONITOR CLOSELY
--- NOTE | 2017-03-16 19:45 | NUR ---
RN INITIAL NOTE RECEIVED PT IN NO ACUTE DISTRESS IN BED. PT IS OBTUNDED, BUT OPENS EYES TO TOUCH. PT IS ON MECHANICAL VENT VIA TRACH. TRACH SITE IS CLEAN DRY AND INTACT. PT TOLERATING VENT SETTING WELL. PT IS ON TELE WITH SR-ST ON THE MONITOR. PT HAS JTUBE THAT IS CLEAN DRY AND INTACT. PT HAS NOVASOURCE @ 20ML/HR WITH A GOAL OF 35 ML/HR. PT HAS ANGELIQUE 20G THAT IS CLEAN DRY AND INTACT WITH SALINE LOCK. PT HAS R WRIST 22G THAT IS CLEAN DRY INTACT AND PATENT WITH SALINE FLUSH. BED IN LOW LOCK POSITION WITH RAILS UP X 2. CALL LIGHT WITHIN REACH AND ALL SAFETY MEASURES ENSURED AND CARRIED OUT. WILL CONTINUE TO MONITOR FOR ANY CHANGES IN CONDITION.
[2017-03-17] VITALS: BP 100/43
[2017-03-17] MEDS: BLOOD SUGAR DIAGNOSTIC 1 EACH STRIP IN SCH ×4 (00:36→17:04)
[2017-03-17] MEDS: METOCLOPRAMIDE HCL 10 MG/10 ML UDC GT SCH ×4 (00:36→17:04)
[2017-03-17 04:00] VITALS: BP 89/48
[2017-03-17] MEDS: INSULIN REGULAR, HUMAN 100 UNIT/ML 3 ML VIAL SQ PRN ×2 (05:28→17:17)
--- NOTE | 2017-03-17 06:47 | NUR ---
RN CLOSING NOTE PT REMAIN IN NO ACUTE DISTRESS IN BED. PT DID NOT HAVE ANY SIGNIFICANT CHANGE IN CONDITION DURING SHIFT. ALL NEEDS MET, ALL ORDERS CARRIED OUT. WILL ENDORSE CARE TO AM RN FOR CONTINUITY OF CARE.
--- NOTE | 2017-03-17 07:35 | NUR ---
PAID SEARCH MANAGER RECEIVED PATIENT FROM THE PREVIOUS SHIFT. PATIENT IS IN BED. RESTING COMFORTABLY. NO ACUTE DISTRESS NOTED. EVEN AND NON LABORED BREATHING PATTERN. STABLE VITAL SINGS. WILL CONTINUE TO MONITOR AND PROVIDE CARE.
[2017-03-17 08:00] VITALS: BP 104/61
[2017-03-17] MEDS: LEVETIRACETAM SOL (5 ML) 100 MG/ML UDC GT SCH ×2 (08:58→17:04)
[2017-03-17] MEDS: PROPRANOLOL HCL 40 MG TABLET GT SCH ×2 (08:59→21:27)
[2017-03-17] MEDS: FUROSEMIDE 20 MG TABLET GT SCH (08:59)
[2017-03-17] MEDS: PHENYTOIN SUSP UDC 100 MG/4 ML UDC GT SCH (08:59)
[2017-03-17] MEDS: POTASSIUM CHLORIDE 10 MEQ TABLET.SA GT SCH (08:59)
[2017-03-17] MEDS: VIT B CMPLX 3/FA/VIT C/BIOTIN 1 TAB TABLET GT SCH (08:59)
[2017-03-17] MEDS: Z GUARD REMEDY 2 OZ OINT TP SCH (09:00)
[2017-03-17] MEDS ORDERED: IV D5/0.45 NACL 1,000 ML IV PRN (11:00)
[2017-03-17 12:00] VITALS: BP 94/58
--- NOTE | 2017-03-17 13:55 | NUR ---
RN NOTES RECEIVED PT FROM RNKARAN. PT IS LAYING IN BED, OBTUNDED. PT CONNECTED TO VENT, SETTINGS ARE ACCURATE. ANGELIQUE IV AND R WRIST IV INTACT AND PATENT. D51/2NS RUNNING AT 50ML/HR. SAFETY MEASURES ARE IN PLACE. WILL CONTINUE TO MONITOR.
[2017-03-17 16:00] VITALS: BP 100/60
--- NOTE | 2017-03-17 18:41 | NUR ---
RN NOTES PT IN BED, RESTING COMFORTABLY. CONNECTED TO VENT, SETTINGS ARE ACCURATE, NO SIGNS OF DISTRESS. IV ON ANGELIQUE INTACT AND PATENT, AND IV ON R WRIST INTACT AND RUNNING D5 1/2 NS @ 50ML/HR. ALL MEDS WERE GIVEN ORDERED. PT KEPT CLEAN AND DRY. LAST ACCUCHECK WAS 138, 2 UNITS GIVEN. WILL ENDORSE TO PSYCHIATRIC TECH RN FOR CONTINUITY OF CARE.
[2017-03-17] MEDS: MEROPENEM 500 MG in IV NS 0.9% 50 ML IV SCH (18:46)
--- NOTE | 2017-03-17 19:31 | NUR ---
RN INITIAL NOTE RECEIVED PT IN NO ACUTE DISTRESS IN BED. PT IS OBTUNDED, BUT OPENS EYES TO TOUCH. PT IS ON MECHANICAL VENT VIA TRACH. TRACH SITE IS CLEAN DRY AND INTACT. PT TOLERATING VENT SETTING WELL. PT IS ON TELE WITH SR-ST ON THE MONITOR. PT HAS JTUBE THAT IS CLEAN DRY AND INTACT. PT HAS NOVASOURCE @ 35ML/HR AND TOLERATING WELL. PT HAS ANGELIQUE 20G THAT IS CLEAN DRY AND INTACT WITH D51/2NS @ 50ML/HR AND TOLERATING WELL. PT HAS R WRIST 22G THAT IS CLEAN DRY INTACT AND PATENT WITH SALINE FLUSH. BED IN LOW LOCK POSITION WITH RAILS UP X 2. CALL LIGHT WITHIN REACH AND ALL SAFETY MEASURES ENSURED AND CARRIED OUT. WILL CONTINUE TO MONITOR FOR ANY CHANGES IN CONDITION.
[2017-03-17 20:00] VITALS: BP 114/63
[2017-03-18] VITALS: BP 92/51
[2017-03-18] MEDS: METOCLOPRAMIDE HCL 10 MG/10 ML UDC GT SCH ×4 (00:22→17:41)
[2017-03-18] MEDS: BLOOD SUGAR DIAGNOSTIC 1 EACH STRIP IN SCH ×4 (00:22→17:23)
[2017-03-18] MEDS: INSULIN REGULAR, HUMAN 100 UNIT/ML 3 ML VIAL SQ PRN ×2 (00:26→11:34)
--- NOTE | 2017-03-18 00:45 | NUR ---
TELE/RN NOTES RECEIVED PATIENT FROM JOEL KENNEDY IN STABLE CONDITION. EYES CLOSED, BREATHING EVENLY VIA TRACH, VENT SETTING: AC 16, TV 500, FIO2 30%, PEEP 5, SAT 100%. SR 72. JT FEEDING NOVASOURCE @ 35 ML/HR, IN PROGRESS, SITE WITH TANA CDI. NO S/S OF N/V. ANGELIQUE IV #20G WITH D5 1/2NS @ 50 ML/HR. R WRIST IV #22G HL AND PATENT. BOTH SITES CDI. SCD ON, ELLA OFF LOADING. WILL MAINTAIN SKIN INTEGRITY AND KEEP SAFE. APPEARS COMFORTABLE. BED AT LOWEST POSITION AND LOCKED, SRX4 UP AND HOB ELEVATED. BED ALARM ON. WILL CONTINUE TO MONITOR.
[2017-03-18 04:00] VITALS: BP 113/64
[2017-03-18 06:27] LABS: BASOPHILS % (AUTO) 0.3 % (0.0-2.0); EOSINOPHILS # (AUTO) 0.5 /CMM (0.0-0.7); EOSINOPHILS % (AUTO) 4.6 % (0.0-6.0); HEMATOCRIT 22 % (39-51); LYMPHOCYTES # (AUTO) 1.3 /CMM (0.8-4.8); LYMPHOCYTES % (AUTO) 13.2 % (20.0-44.0); MEAN CORPUSCULAR HEMOGLOBIN 31 PG (26.0-33.0); MEAN CORPUSCULAR HGB CONC 32 g/dl (31.0-36.0); MEAN CORPUSCULAR VOLUME 96 fL (80-96); MONOCYTES % (AUTO) 10.1 % (2.0-12.0); NEUTROPHILS % (AUTO) 71.8 % (43.0-81.0); PLATELET COUNT (AUTO) 508 /CMM (150-450); RDW COEFFICIENT OF VARIATION 18.2 (11.5-15.0); RED BLOOD CELL COUNT(AUTO) 2.25 MIL/uL (4.5-6.0); WHITE BLOOD COUNT (AUTO) 9.7 K/uL (4.3-11.0)
--- NOTE | 2017-03-18 06:42 | NUR ---
TELE/RN NOTES H/H 7.0/22.0 PER PRIYANKA OF LAB.
[2017-03-18 06:50] LABS: CALCIUM, SERUM 9.6 mg/dL (8.5-10.1); CREATININE 3.8 mg/dL (0.6-1.3); MAGNESIUM 2.5 mg/dL (1.8-2.4); PHOSPHORUS 4.5 mg/dL (2.5-4.9); POTASSIUM 3.9 mmol/L (3.5-5.1)
[2017-03-18] MEDS: MEROPENEM 500 MG in IV NS 0.9% 50 ML IV SCH (06:53)
--- NOTE | 2017-03-18 07:05 | NUR ---
RN INITIAL NOTE PATIENT RECEIVED IN BED, RESTING. PATIENT IS OBTUNDED, NON VERBAL, OPENS EYES. NO S/S OF PAIN OR DISCOMFORT. PATIENT HAS TRACH, TOLERATING VENT SETTINGS WELL. NO S/S OF RESPIRATORY DISTRESS OR SOB. GTUBE FLUSHED, PATENT. PLACEMENT VERIFIED. SKIN IS WARM AND DRY TO TOUCH. IV SITE NOT FLUSHING. REQUESTING MIDLINE. SAFETY PRECAUTIONS IMPLEMENTED, BED IN LOCKED, LOW POSITION WITH TWO SIDE RAILS UP. WILL CONTINUE TO MONITOR.
[2017-03-18 07:23] LABS: IRON, SERUM 30 ug/dl (50-175); TOTAL IRON BINDING CAPACITY 134 ug/dl (250-450)
--- NOTE | 2017-03-18 07:30 | NUR ---
TELE/RN NOTES NO SIGNIFICANT CHANGES. STABLE. NO SOB ON TRACH WITH NO CHANGES TO VENT SETTING, O2 SAT 100%. SUCTIONED X1 WITH SCANT YELLOWISH SECRETIONS. TOLERATED WELL. IVF VIA R UPPER ARM IV AND NOVASOURCE @ 40 ML/HR (VIA JTUBE) IN PROGRESS. REDNESS TO COCCYX, APPLIED Z-GUARD AND COVERED WITH MEPILEX. ALL NEEDS MET. BED AT LOWEST POSITION AND LOCKED, HOB ELEVATED, SRX4 UP, BED ALARM ON. ENDORSED TO AM SHIFT FOR CONTINUITY OF CARE. Addendum: 03/18/17 at 0833 by ELIZABETH ORANTES RN ENDORSED TO JOEL BOYCE DURING SHIFT CHANGE OF H/H 7.0/22.0 AND THAT DOCTOR HAS NOT BEEN INFORMED. VERBALIZED UNDERSTANDING.
[2017-03-18 08:00] VITALS: BP 123/71
[2017-03-18] MEDS: LEVETIRACETAM SOL (5 ML) 100 MG/ML UDC GT SCH ×2 (08:44→17:23)
[2017-03-18] MEDS: VIT B CMPLX 3/FA/VIT C/BIOTIN 1 TAB TABLET GT SCH (08:45)
[2017-03-18] MEDS: PHENYTOIN SUSP UDC 100 MG/4 ML UDC GT SCH (08:45)
[2017-03-18] MEDS: POTASSIUM CHLORIDE 10 MEQ TABLET.SA GT SCH (08:45)
[2017-03-18] MEDS: PROPRANOLOL HCL 40 MG TABLET GT SCH ×2 (08:46→21:57)
[2017-03-18] MEDS: FUROSEMIDE 20 MG TABLET GT SCH (08:46)
[2017-03-18] MEDS: Z GUARD REMEDY 2 OZ OINT TP SCH (08:46)
--- NOTE | 2017-03-18 11:21 | NUR ---
RN NOTE PER DR SHENG DOUGLAS TO GIVE BOTH REGLAN AND REBAAZINE
[2017-03-18] MEDS: LEVOTHYROXINE SODIUM 25 MCG TABLET GT SCH (11:32)
[2017-03-18 12:00] VITALS: BP 112/68
[2017-03-18] MEDS ORDERED: EPOETIN ALFA (20,000 UNIT) 20,000 UNIT/ML VIAL SQ ONE (12:00)
[2017-03-18] MEDS: IV D5W 1,000 ML IV PRN (14:55)
[2017-03-18 16:00] VITALS: BP 118/69
[2017-03-18] MEDS ORDERED: CEFEPIME 1 GM in IV D5W 50 ML IV SCH (18:00)
--- NOTE | 2017-03-18 19:15 | NUR ---
RN INITIAL NOTES RECEIVED PATIENT IN BED, NONVERBAL, ABLE TO OPEN EYES. PATIENT ON MECH VENT VIA TRACH, C/D/I, MIDLINE. AIRWAY SUCTIONED AND OBTAINED THICK, YELLOWISH-WHITE SECRETIONS. PATIENT WITH NO DISTRESS. REMAINS SR ON TELE WITH HR OF 83. HOB ELEVATED. GTF ORDERED, NO GASTRIC RESIDUAL NOTED. ROMAN MIDLINE, FLUSHED WITH GOOD BLOOD RETURN, IVF ORDERED. PATIENT TURNED AND REPOSITIONED. SAFETY AND COMFORT ENSURED. BED IN LOW AND LOCKED POSITION. CALL LIGHT IN REACH. WILL MONITOR.
[2017-03-18 20:00] VITALS: BP 142/78
[2017-03-19] VITALS (7 sets, daily range): BP systolic 93–143; BP diastolic 55–76
[2017-03-19] MEDS: BLOOD SUGAR DIAGNOSTIC 1 EACH STRIP IN SCH ×4 (00:04→17:01)
[2017-03-19] MEDS: METOCLOPRAMIDE HCL 10 MG/10 ML UDC GT SCH ×4 (00:04→17:01)
[2017-03-19] MEDS: RENAL NOVASOURCE 1,000 ML BOTTLE GT PRN (04:54)
[2017-03-19] MEDS: IV D5W 1,000 ML IV PRN ×2 (04:54→17:01)
[2017-03-19 06:18] LABS: BASOPHILS # (AUTO) 0.1 /CMM (0.0-0.2); BASOPHILS % (AUTO) 0.5 % (0.0-2.0); EOSINOPHILS # (AUTO) 0.5 /CMM (0.0-0.7); EOSINOPHILS % (AUTO) 4.5 % (0.0-6.0); HEMATOCRIT 23 % (39-51); HEMOGLOBIN 7.3 g/dL (13.5-17.5); LYMPHOCYTES # (AUTO) 1.4 /CMM (0.8-4.8); LYMPHOCYTES % (AUTO) 12.2 % (20.0-44.0); MEAN CORPUSCULAR HEMOGLOBIN 31 PG (26.0-33.0); MEAN CORPUSCULAR HGB CONC 32 g/dl (31.0-36.0); MEAN CORPUSCULAR VOLUME 96 fL (80-96); MONOCYTES # (AUTO) 0.8 /CMM (0.1-1.30); MONOCYTES % (AUTO) 7.3 % (2.0-12.0); NEUTROPHILS # (AUTO) 8.4 /CMM (1.8-8.9); NEUTROPHILS % (AUTO) 75.5 % (43.0-81.0); PLATELET COUNT (AUTO) 563 /CMM (150-450); RDW COEFFICIENT OF VARIATION 18.1 (11.5-15.0); RED BLOOD CELL COUNT(AUTO) 2.35 MIL/uL (4.5-6.0); WHITE BLOOD COUNT (AUTO) 11.1 K/uL (4.3-11.0)
--- NOTE | 2017-03-19 06:18 | NUR ---
RN CLOSING NOTES PATIENT WITH NO ACUTE CHANGE IN CONDITION OBSERVED OVERNIGHT. PATIENT WITH NO DISTRESS. REMAINS SR. MECH VENT SETTINGS TOLERATED WELL, AIRWAY KEPT PATENT. GTF INFUSING WELL, NO GASTRIC RESIDUAL. IVF ORDERED. PATIENT TURNED AND REPOSITIONED. ALL DUE MEDS GIVEN ORDERED. AM LABS DRAWN. SAFETY AND COMFORT ENSURED. KEPT CLEAN AND DRY. WILL ENDORSE ACCORDINGLY FOR CONTINUITY OF CARE.
[2017-03-19 06:44] LABS: CALCIUM, SERUM 9.5 mg/dL (8.5-10.1); CREATININE 3.4 mg/dL (0.6-1.3); MAGNESIUM 2.3 mg/dL (1.8-2.4); PHOSPHORUS 4.5 mg/dL (2.5-4.9); POTASSIUM 3.8 mmol/L (3.5-5.1)
--- NOTE | 2017-03-19 07:05 | NUR ---
RN INITIAL NOTE PATIENT RECEIVED IN BED, RESTING. NO S/S OF PAIN OR DISCOMFORT. PATIENT IS NON-VERBAL. HAS TRACH PORTEX #9, TOLERATING VENT SETTINGS WELL. SINUS RHYTHM ON TELE MONITOR. SKIN IS WARM AND DRY TO TOUCH. IV SITE FLUSHED, PATENT. JTUBE FLUSHED, PLACEMENT VERIFIED. TOLERATING FEEDING WELL. STOPPED FEEDING FOR AM MEDS. ISOLATION PRECAUTIONS OBSERVED. SAFETY PRECAUTIONS IMPLEMENTED. BED IN LOCKED, LOW POSITION WITH TWO SIDE RAILS UP. WILL CONTINUE TO MONITOR CLOSELY.
[2017-03-19] MEDS: PHENYTOIN SUSP UDC 100 MG/4 ML UDC GT SCH (09:16)
[2017-03-19] MEDS: LEVETIRACETAM SOL (5 ML) 100 MG/ML UDC GT SCH ×2 (09:16→17:01)
[2017-03-19] MEDS: POTASSIUM CHLORIDE 10 MEQ TABLET.SA GT SCH (09:16)
[2017-03-19] MEDS: VIT B CMPLX 3/FA/VIT C/BIOTIN 1 TAB TABLET GT SCH (09:16)
[2017-03-19] MEDS: PROPRANOLOL HCL 40 MG TABLET GT SCH ×2 (09:17→21:06)
[2017-03-19] MEDS: Z GUARD REMEDY 2 OZ OINT TP SCH (09:17)
[2017-03-19] MEDS: LEVOTHYROXINE SODIUM 25 MCG TABLET GT SCH (10:35)
--- NOTE | 2017-03-19 10:40 | NUR ---
WOUND CARE CONSULT: PT PRESENTS WITH IMMOBILITY, DELFINA SCORE OF 10 CURRENTLY AND SACRAL INTACT BLISTER OVER PREVIOUS SCARRING. RECOMMENDATIONS MADE AND DISCUSSED WITH NURSING STAFF FOR SKIN PROTECTION. PT ON OSCAR ISOFLEX LOW AIRLOSS BED. ALL SKIN PROTECTION. DISCUSSED WITH JAYDEN, SURGICAL N.PWilberto AND NEW ORDER RECEIVED. WILL SEE PRN. MALLORY IN AGREEMENT WITH PLAN OF CARE. Addendum: 03/19/17 at 1042 by MANISHA HOLLAND WNDNU Amended: Links added.
[2017-03-19] MEDS: INSULIN REGULAR, HUMAN 100 UNIT/ML 3 ML VIAL SQ PRN (13:07)
[2017-03-19] MEDS: CEFEPIME 2 GM in IV D5W 100 ML IV SCH (17:04)
--- NOTE | 2017-03-19 18:58 | NUR ---
RN CLOSING NOTE ALL MD ORDERS CARRIED OUT, PATIENT KEPT CLEAN AND DRY. SAFETY PRECAUTIONS IN PLACE AT ALL TIMES . WILL GIVE REPORT TO PM RN FOR LAUREN.
--- NOTE | 2017-03-19 19:15 | NUR ---
RN INITIAL NOTES PATIENT ON MECH VENT VIA TRACH, C/D/I, MIDLINE. AIRWAY SUCTIONED AND KEPT A CLEAR AND PATENT AIRWAY. PATIENT WITH NO DISTRESS. REMAINS SR ON TELE WITH HR OF 93. HOB ELEVATED. GTF ORDERED, NO GASTRIC RESIDUAL NOTED. ROMAN MIDLINE, FLUSHED WITH GOOD BLOOD RETURN, IVF ORDERED. PATIENT TURNED AND REPOSITIONED. SAFETY AND COMFORT ENSURED. BED IN LOW AND LOCKED POSITION. CALL LIGHT IN REACH. WILL MONITOR.
[2017-03-20] VITALS: BP 102/57
[2017-03-20] MEDS: METOCLOPRAMIDE HCL 10 MG/10 ML UDC GT SCH ×4 (00:21→17:12)
[2017-03-20] MEDS: BLOOD SUGAR DIAGNOSTIC 1 EACH STRIP IN SCH ×4 (00:23→17:19)
[2017-03-20] MEDS: INSULIN REGULAR, HUMAN 100 UNIT/ML 3 ML VIAL SQ PRN (00:30)
[2017-03-20 04:00] VITALS: BP_SYST 105; BP_SYST 89; BP_DIAS 33; BP_DIAS 62
[2017-03-20] MEDS: IV D5W 1,000 ML IV PRN ×2 (05:06→17:03)
[2017-03-20 08:00] VITALS: BP 93/40
--- NOTE | 2017-03-20 08:28 | NUR ---
BUSH AND VINE FRUIT CROP FARMER INITIAL NOTES RN RECEIVED THE PATIENT ALSEEP ON [facility] VENT/TRACH, CLEAN DRY AND INTACT, TRACH IS MIDLINE. AIRWAY SUCTIONED FOR SECRETIONS .NO DISTRESS OR SOB NOTED . PT ON TELE SR WITH HR OF 70 . HOB ELEVATED. GTF AT 40ML/HR , NO GASTRIC RESIDUAL NOTED AT THIS TIME . ROMAN MIDLINE, FLUSHED, NO SIGNS OF INFILTRATION OR REDNESS , IVF RUNNING . PATIENT TURNED AND REPOSITIONED. SAFETY MEASURES IN PLACE. BED IN LOW AND LOCKED POSITION. CALL LIGHT IN REACH. WILL MONITOR. RN WILL CONTINUE TO MONITOR THROUGHOUT THE DAY
[2017-03-20] MEDS: LEVETIRACETAM SOL (5 ML) 100 MG/ML UDC GT SCH ×2 (08:51→17:09)
[2017-03-20] MEDS: VIT B CMPLX 3/FA/VIT C/BIOTIN 1 TAB TABLET GT SCH (08:52)
[2017-03-20] MEDS: PHENYTOIN SUSP UDC 100 MG/4 ML UDC GT SCH (08:52)
[2017-03-20] MEDS: PROPRANOLOL HCL 40 MG TABLET GT SCH ×2 (08:53→21:38)
[2017-03-20] MEDS: POTASSIUM CHLORIDE 10 MEQ TABLET.SA GT SCH (08:53)
[2017-03-20] MEDS: Z GUARD REMEDY 2 OZ OINT TP SCH (08:54)
[2017-03-20] MEDS: LEVOTHYROXINE SODIUM 25 MCG TABLET GT SCH (11:00)
[2017-03-20] MEDS: RENAL NOVASOURCE 1,000 ML BOTTLE GT PRN (11:02)
[2017-03-20 12:00] VITALS: BP 92/43
[2017-03-20 16:00] VITALS: BP 89/33
[2017-03-20] MEDS: CEFEPIME 2 GM in IV D5W 100 ML IV SCH (17:09)
--- NOTE | 2017-03-20 19:04 | NUR ---
KEY ACCOUNT COORDINATOR CLOSING NOTES PATIENT WITH NO ACUTE CHANGE IN CONDITION THROUGHOUT THE DAY . PATIENT WITH NO DISTRESS. REMAINS SR. MECH VENT SETTINGS TOLERATED WELL, AIRWAY KEPT CLEAR AND TRACH MIDLINE. GTF INFUSING WELL, NO GASTRIC RESIDUAL. IVF RUNNING . PATIENT TURNED AND REPOSITIONED Q 2HRS . ALL DUE MEDS GIVEN ORDERED. SAFETY AND COMFORT ENSURED CALL LIGHT WITHIN REACH BED ALARM ON . PT KEPT CLEAN AND DRY. WILL ENDORSE CONTINUITY OF CARE TO THE PM RN.
--- NOTE | 2017-03-20 19:35 | NUR ---
TELE/RN NOTES RECEIVED PT. LYING IN BED. PT. IS OBTUNDED AND OPENS EYES. PT. IS VENT/TRACH DEPENDENT. BREATHING EVEN AND UNLABORED, NO SOB, RESPIRATORY DISTRESS OR S/S OF PAIN NOTED AT THIS TIME. PT. WITH EXTERNAL GENERAL COUNSEL PRESENT AND INTACT. CURRENT RHYTHM = SINUS RHYTHM HR 73. PT. WITH LEFT UPPER ARM MIDLINE PRESENT, PATENT AND INTACT ADMINISTERING TO PT. D5W @ 100 ML/HR. PT. WITH G-TUBE PRESENT, PATENT AND INTACT ADMINISTERING TO PT. NOVASOURCE @ 35 ML/HR. PT. TOLERATING WELL. NO RESIDUAL NOTED AT THIS TIME. PT. WITH G-TUBE DRESSING PRESENT, CLEAN, DRY AND INTACT. BED LOCKED AND IN LOWEST POSITION, SIDE RAILS UP X3, WILL CONTINUE TO MONITOR.
[2017-03-20 20:00] VITALS: BP 129/85
--- NOTE | 2017-03-20 20:45 | NUR ---
TELE/RN NOTES SHERINE [employer] SERVICES PROFESSIONAL PRESENT AT PT. BEDSIDE EXAMINING PT. G-TUBE SITE. PER SHER[employer] PROFESSIONAL CONTINUE TO APPLY ZGAURD AND COVER WITH GAUZE DRESSING. MONITOR FOR DRAINAGE. WILL CONTINUE TO MONITOR.
[2017-03-21] VITALS (8 sets, daily range): BP systolic 105–133; BP diastolic 60–84
[2017-03-21] MEDS: METOCLOPRAMIDE HCL 10 MG/10 ML UDC GT SCH ×4 (00:48→17:06)
[2017-03-21] MEDS: BLOOD SUGAR DIAGNOSTIC 1 EACH STRIP IN SCH ×4 (00:48→17:06)
[2017-03-21] MEDS: INSULIN REGULAR, HUMAN 100 UNIT/ML 3 ML VIAL SQ PRN ×3 (00:51→17:19)
[2017-03-21 06:19] LABS: BASOPHILS # (AUTO) 0.1 /CMM (0.0-0.2); BASOPHILS % (AUTO) 0.4 % (0.0-2.0); EOSINOPHILS # (AUTO) 0.6 /CMM (0.0-0.7); EOSINOPHILS % (AUTO) 4.8 % (0.0-6.0); HEMATOCRIT 25 % (39-51); HEMOGLOBIN 8.3 g/dL (13.5-17.5); LYMPHOCYTES # (AUTO) 1.6 /CMM (0.8-4.8); LYMPHOCYTES % (AUTO) 12.7 % (20.0-44.0); MEAN CORPUSCULAR HEMOGLOBIN 31 PG (26.0-33.0); MEAN CORPUSCULAR HGB CONC 33 g/dl (31.0-36.0); MEAN CORPUSCULAR VOLUME 94 fL (80-96); MONOCYTES # (AUTO) 0.9 /CMM (0.1-1.30); NEUTROPHILS # (AUTO) 9.7 /CMM (1.8-8.9); NEUTROPHILS % (AUTO) 75.1 % (43.0-81.0); PLATELET COUNT (AUTO) 537 /CMM (150-450); RDW COEFFICIENT OF VARIATION 17.8 (11.5-15.0); RED BLOOD CELL COUNT(AUTO) 2.66 MIL/uL (4.5-6.0); WHITE BLOOD COUNT (AUTO) 12.9 K/uL (4.3-11.0)
[2017-03-21 06:35] LABS: ALBUMIN 2.1 g/dL (3.4-5.0); BILIRUBIN,TOTAL 0.2 mg/dL (0.2-1.0); CALCIUM, SERUM 9.3 mg/dL (8.5-10.1); CREATININE 2.6 mg/dL (0.6-1.3); MAGNESIUM 1.9 mg/dL (1.8-2.4); PHOSPHORUS 3.9 mg/dL (2.5-4.9); POTASSIUM 3.6 mmol/L (3.5-5.1); TOTAL PROTEIN, SERUM 7.1 g/dL (6.4-8.2)
--- NOTE | 2017-03-21 06:48 | NUR ---
TELE/RN NOTES PT. IS LYING IN BED RESTING. PT. IS VENT/TRACH DEPENDENT. BREATHING EVEN AND UNLABORED, NO SOB, RESPIRATORY DISTRESS OR S/S OF PAIN NOTED AT THIS TIME AND THROUGHOUT SHIFT. PT. WITH LEFT UPPER ARM MIDLINE PRESENT, PATENT AND INTACT ADMINISTERING TO PT. D5W @ 100 ML/HR. PT. WITH G-TUBE PRESENT, PATENT AND INTACT ADMINISTERING TO PT. NOVASOURCE @ 40 ML/HR. PT. TOLERATING WELL. NO RESIDUAL NOTED AT THIS TIME AND THROUGHOUT SHIFT. PT. WITH G-TUBE DRESSING PRESENT, CLEAN, DRY AND INTACT. ALL PT. NEEDS MET. PT. OFFLOADED, TURNED AND REPOSITIONED Q2H AND NEEDED. BED LOCKED AND IN LOWEST POSITION, SIDE RAILS UP X3, WILL ENDORSE TO DAYSHIFT NURSE FOR CONTINUITY OF CARE.
[2017-03-21] MEDS: IV D5W 1,000 ML IV PRN ×3 (07:06→16:38)
--- NOTE | 2017-03-21 07:45 | NUR ---
GASTROENTEROLOGY NURSE PRACTITIONER OPENING NOTE PATIENT IS OBTUNDED, OPENS EYES. NO FACIAL GRIMACING NOTED FOR PAIN. NO SOB OR DISTRESS NOTED. HAS TRACH IN PLACE, CLEAN AND INTACT. TELE-SR AT 75. BEDREST AT THIS TIME. WOUND TREATMENT TO BE DONE THROUGHOUT SHIFT AND CHANGE DRESSINGS NEEDED. J-TUBE DRESSING CLEAN AND INTACT, TO BE CHANGED THROUGHOUT SHIFT AND MONITOR FOR ANY LEAKING. FEEDING RUNNING AT 40 ML/HR TOLERATING FEEDING WELL. NO RESIDUAL NOTED. 200CC OF FREE FLUSH WATER TO BE DONE QID. BLOOD SUGAR TO BE MONITORED AND WILL GIVE INSULIN NEEDED THROUGHOUT SHIFT. AM LABS THIS MORNING, WILL REPLACE NEEDED. WILL CONTINUE TO MONITOR THROUGHOUT SHIFT
[2017-03-21] MEDS: LEVETIRACETAM SOL (5 ML) 100 MG/ML UDC GT SCH ×2 (08:42→16:35)
[2017-03-21] MEDS: PHENYTOIN SUSP UDC 100 MG/4 ML UDC GT SCH (08:42)
[2017-03-21] MEDS: VIT B CMPLX 3/FA/VIT C/BIOTIN 1 TAB TABLET GT SCH (08:42)
[2017-03-21] MEDS: POTASSIUM CHLORIDE 10 MEQ TABLET.SA GT SCH (08:42)
[2017-03-21] MEDS: Z GUARD REMEDY 2 OZ OINT TP SCH (08:42)
[2017-03-21] MEDS: PROPRANOLOL HCL 40 MG TABLET GT SCH ×2 (08:43→22:21)
[2017-03-21] MEDS: LEVOTHYROXINE SODIUM 25 MCG TABLET GT SCH (11:23)
[2017-03-21] MEDS: RENAL NOVASOURCE 1,000 ML BOTTLE GT PRN (13:39)
[2017-03-21] MEDS: CEFEPIME 2 GM in IV D5W 100 ML IV SCH (17:06)
--- NOTE | 2017-03-21 18:36 | NUR ---
GEAR MACHINE OPERATOR CLOSING NOTE PATIENT IS OBTUNDED AND RESPONDS BY OPENING EYES. CALL LIGHT WITHIN REACH AT ALL TIMES. SAFETY MEASURES IMPLEMENTED. ON MECHANICAL VENTILATION, DRESSING CHANGED, KEPT CLEAN DRY AND INTACT. INCONTINENT, HAD ONE BOWEL MOVEMENT. BEDREST. CHANGED G-TUBE SITE, WOUND TREATMENT DONE, DRESSING CHANGED AND KEPT DRY AND INTACT. SACRAL WOUND TREATMENT DONE, MEPILEX IN PLACE. NPO, HAS TUBE FEEDING : NOVASOURCE RUNNING AT 40 ML/HR AND TOLERATING WELL. BLOOD SUGAR MONITORED THROUGHOUT SHIFT AND INSULIN GIVEN NEEDED. ALL DUE MEDICATIONS GIVEN ORDERED. ALL NURSING CARE NEEDS ATTENDED TO. G-TUBE TO BE FREE WATER FLUSHED OF 200cc QID. PER INFECTIOUS DISEASE MD, BLADDER SCAN; PLACE RAMON IF RESIDUAL MORE THAN 300cc. LEFT UPPER MIDLINE INTACT AND PATENT NO REDNESS OR SWELLING NOTED. IV FLUIDS RUNNING AT THIS TIME, D5W RUNNING AT 100ML/HR. WILL ENDORSE TO ORGAN PIPE FINISHER NURSE FOR LAUREN
[2017-03-22] VITALS: BP 99/60
[2017-03-22] MEDS: BLOOD SUGAR DIAGNOSTIC 1 EACH STRIP IN SCH ×5 (00:50→23:44)
[2017-03-22] MEDS: METOCLOPRAMIDE HCL 10 MG/10 ML UDC GT SCH ×5 (00:50→23:44)
[2017-03-22] MEDS: INSULIN REGULAR, HUMAN 100 UNIT/ML 3 ML VIAL SQ PRN ×3 (00:55→23:46)
[2017-03-22 04:00] VITALS: BP_SYST 101; BP_SYST 99; BP_DIAS 59; BP_DIAS 60
[2017-03-22] MEDS: IV D5W 1,000 ML IV PRN ×2 (05:45→16:31)
--- NOTE | 2017-03-22 07:30 | NUR ---
MEDICINE WORKER NOTES, PATIENT IN BED ALERT AND ORIENTED, ABLE TO VERBALIZED NEEDS, ON O2 2LPM VIA N/C SATURATION WNL BREATHING EVEN AND UNLABORED, NO S/S OF SOB OR ACUTE DISTRESS NOTED AT THIS TIME, RECEIVING HD AT THIS TIME, PT TOLERATING WELL AND VS WNL. TELE SR 78 WITH BBB. ANGELIQUE MIDLINE NO S/S OF INFECTION NOTED, PATENCY INTACT, CLRAN AND FLUSHING WELL. LCW PERM CATH IN PLACE, CLEAN AND DRY. SITTER AT BED SIDE FOR SAFETY. BED IN LOCKED AND LOWEST POSITION, CALL LIGHT W/I RAECH. ALL NEED PROVIDED. WILL CONTINUE TO MONITOR CLOSELY
[2017-03-22 08:00] VITALS: BP 138/73
[2017-03-22] MEDS: POTASSIUM CHLORIDE 10 MEQ TABLET.SA GT SCH (08:38)
[2017-03-22] MEDS: PHENYTOIN SUSP UDC 100 MG/4 ML UDC GT SCH (08:38)
[2017-03-22] MEDS: VIT B CMPLX 3/FA/VIT C/BIOTIN 1 TAB TABLET GT SCH (08:38)
[2017-03-22] MEDS: LEVETIRACETAM SOL (5 ML) 100 MG/ML UDC GT SCH ×2 (08:38→16:41)
[2017-03-22] MEDS: Z GUARD REMEDY 2 OZ OINT TP SCH (08:41)
[2017-03-22] MEDS: PROPRANOLOL HCL 40 MG TABLET GT SCH ×2 (08:41→21:00)
[2017-03-22] MEDS: LEVOTHYROXINE SODIUM 25 MCG TABLET GT SCH (11:19)
[2017-03-22] MEDS: POTASSIUM CHLORIDE 20 MEQ POWDER PACKET GT SCH (11:20)
[2017-03-22 12:00] VITALS: BP 113/50
[2017-03-22 16:00] VITALS: BP 96/60
[2017-03-22] MEDS: RENAL NOVASOURCE 1,000 ML BOTTLE GT PRN (16:37)
[2017-03-22] MEDS: CEFEPIME 2 GM in IV D5W 100 ML IV SCH (17:38)
[2017-03-22 20:00] VITALS: BP 105/58
[2017-03-23] VITALS: BP 105/64
[2017-03-23 04:00] VITALS: BP 119/81
[2017-03-23] MEDS: BLOOD SUGAR DIAGNOSTIC 1 EACH STRIP IN SCH ×2 (05:10→12:28)
[2017-03-23] MEDS: METOCLOPRAMIDE HCL 10 MG/10 ML UDC GT SCH ×2 (05:10→12:21)
[2017-03-23] MEDS: IV D5W 1,000 ML IV PRN (05:15)
--- NOTE | 2017-03-23 06:18 | NUR ---
AQUATIC DIRECTOR NOTE PATIENT STABLE. ALL NEEDS MET AND ATTENDED TO. WOUND CARE DONE TO J-TUBE SITE. FEEDING RUNNING ORDERED, WITH NO RESIDUAL. IV SITE INTACT WITH FLUIDS RUNNING ORDERED. BED LOCKED AND IN LOWEST POSITION. SIDE RAILS UP, CALL LIGHT WITHIN REACH. WILL ENDORSE TO DAY SHIFT FOR LAUREN.
--- NOTE | 2017-03-23 07:50 | NUR ---
RN NOTES RECEIVED PT, PT IS IN BED. A/O X 0, PT IS OBTUNDED. NO S/S OF DISTRESS/SOB. PT DOES NOT APPEAR TO BE IN PAIN AT THIS TIME. J-TUBE ASSESSED AND IN PLACE, PER SPANISH SPEAKING BABYSITTER REPORT J-TUBE TO BE FREQUENTLY FLUSHED TO REMAIN PATENT. IV ACCESS LOCATED ON LEFT UPPER ARM MIDLINE RUNNING D5W AT 100ML/HR. SAFETY MEASURES IN PLACE, CALL LIGHT WITHIN REACH. WILL CONTINUE TO MONITOR.
[2017-03-23 08:00] VITALS: BP 93/53
[2017-03-23 08:20] VITALS: BP 93/53
[2017-03-23] MEDS: PHENYTOIN SUSP UDC 100 MG/4 ML UDC GT SCH (09:55)
[2017-03-23] MEDS: LEVETIRACETAM SOL (5 ML) 100 MG/ML UDC GT SCH (09:55)
[2017-03-23] MEDS: VIT B CMPLX 3/FA/VIT C/BIOTIN 1 TAB TABLET GT SCH (09:56)
[2017-03-23] MEDS: POTASSIUM CHLORIDE 20 MEQ POWDER PACKET GT SCH (09:56)
[2017-03-23] MEDS: PROPRANOLOL HCL 40 MG TABLET GT SCH (09:56)
[2017-03-23] MEDS: Z GUARD REMEDY 2 OZ OINT TP SCH (10:01)
[2017-03-23] MEDS ORDERED: ALLA266C2 TP (12:00)
[2017-03-23] MEDS ORDERED: CEFE2FRO IV (12:00)
[2017-03-23] MEDS: LEVOTHYROXINE SODIUM 25 MCG TABLET GT SCH (12:22)
[2017-03-23 12:25] VITALS: BP 87/52
[2017-03-23] MEDS: INSULIN REGULAR, HUMAN 100 UNIT/ML 3 ML VIAL SQ PRN (12:35)
--- NOTE | 2017-03-23 14:35 | NUR ---
DISCHARGE NOTES PT D/C TO [facility]. PT VS ARE STABLE, ALTHOUGH PT IS HYPOTENSIVE, RECENT VITALS HAVE TRENDED IN THAT MANNER. PT IS OBTUNDED AND NON-VERBAL. PT DOES NOT APPEAR TO BE IN PAIN. PT IS VENT DEPENDENT, RESPIRATORY THERAPIST ACCOMPANYING AMBULATORY TRANSPORT DURING DISCHARGE. EXIT CARE COMPLETED AND SIGNED BY TWO LICENSED NURSES. BELONGINGS LIST SIGNED. ALL PAPER WORK COPIED AND INCLUDED IN CHART. REPORT GIVEN TO JOEL HUYNH OF [facility]. IV ACCESS LEFT IN PLACE IN ORDER TO COMPLETE ABX THERAPY. PT LEFT HOSPITAL WITH PARAMEDICS AND RT.
== END 2017-03-23 14:34 | DRG 252 ==
LOC: ER 14:37 → TELE1 17:16
PROVIDERS: ADMIT Internal Medicine; ATTEND Internal Medicine
PROC: 5A1955Z Respiratory Ventilation, Greater than 96 Consecutive Hours (ICD-10-PCS; principal; 2017-03-15)
PROC: 30233N1 Transfusion of Nonautologous Red Blood Cells into Peripheral Vein, Percutaneous Approach (ICD-10-PCS; principal; 2017-03-15)
PROC: B547ZZA Ultrasonography of Left Subclavian Vein, Guidance (ICD-10-PCS; 2017-03-19)
PROC: 05H633Z Insertion of Infusion Device into Left Subclavian Vein, Percutaneous Approach (ICD-10-PCS; 2017-03-19)
DX: K94.22 Gastrostomy infection (principal); G93.40 Encephalopathy, unspecified; Z99.11 Dependence on respirator [ventilator] status; N17.9 Acute kidney failure, unspecified; J96.11 Chronic respiratory failure with hypoxia; R53.2 Functional quadriplegia; L03.311 Cellulitis of abdominal wall; R13.10 Dysphagia, unspecified; F32.9 Major depressive disorder, single episode, unspecified; Z91.5 Personal history of self-harm; E03.9 Hypothyroidism, unspecified; Z79.4 Long term (current) use of insulin; Z79.899 Other long term (current) drug therapy; G40.909 Epilepsy, unspecified, not intractable, without status epilepticus; Y83.9 Surgical procedure, unspecified as the cause of abnormal reaction of the patient, or of later complication, without mention of misadventure at the time of the procedure; Y82.9 Unspecified medical devices associated with adverse incidents; Y92.129 Unspecified place in nursing home as the place of occurrence of the external cause; E11.22 Type 2 diabetes mellitus with diabetic chronic kidney disease; D63.1 Anemia in chronic kidney disease; E88.09 Other disorders of plasma-protein metabolism, not elsewhere classified; E87.0 Hyperosmolality and hypernatremia; E86.0 Dehydration; I12.9 Hypertensive chronic kidney disease with stage 1 through stage 4 chronic kidney disease, or unspecified chronic kidney disease; N18.9 Chronic kidney disease, unspecified; N39.0 Urinary tract infection, site not specified
CPT/HCPCS: 31720; 36415; 36569; 71010-TC; 74000-TC; 80048-TC; 80053-TC; 80076-TC; 82962-TC; 83540-TC; 83605-TC; 83735-TC; 84100-TC; 85025-TC; 85730-TC; 86850-TC; 86921-TC; 87040-TC; 87081-TC; 87086-TC; 87186-TC; 94003-TC; 94760-TC; A4216; A4606; A6253; A6402; C9113; J0692; J0696; J0885; J1815; J1953; J2185; J3370; J3490; J7030; J7042; J7050; J7060; J7070; J8597; P9016-BL; Q9963; Z7610

== ENCOUNTER 2017-09-15 12:23 | Inpatient (IN) | payer MEDICAID ==
[~2017-09-15] VITALS: Ht 160 cm; Wt 81.2 kg
[~2017-09-15 12:23] MED LIST changes: -ACET160S2 GT; +ALLA266C2 TP; +CEFE2FRO IV; +CHLO25TA13 JT; -FAMO40TA7 GT; +FOLI0.8T2 GT; +FURO20TA4 GT; -FURO20TA4 JT; -INSU100I26 SQ; +PHEN100C4 JT; +POTA20LI4 JT; +PROP40TA7 JT
--- NOTE | 2017-09-15 12:58 | NUR ---
RT RECEIVED PT FROM AMBULANCE AT THIS TIME IN NO RESPIRATORY DISTRESS, TRACH PATENT AND SECURE, ALARMS ON AND AUDIBLE, VENT PLUGGED INTO RED OUTLET, PT STABLE WILL MONITOR CLOSELY.
--- NOTE | 2017-09-15 13:11 | NUR ---
PAGED DR JONA GERMNA EDUCATIONAL PROGRAM ASSISTANT FOR DR MARISOL PATRICIO
[2017-09-15 13:19] LABS: BASOPHILS # (AUTO) 0.3 /CMM (0.0-0.2); BASOPHILS % (AUTO) 2.1 % (0.0-2.0); EOSINOPHILS % (AUTO) 0.7 % (0.0-6.0); HEMATOCRIT 28 % (39-51); HEMOGLOBIN 9.7 g/dL (13.5-17.5); LYMPHOCYTES # (AUTO) 0.8 /CMM (0.8-4.8); LYMPHOCYTES % (AUTO) 6.5 % (20.0-44.0); MEAN CORPUSCULAR HGB CONC 35 g/dl (31.0-36.0); MEAN CORPUSCULAR VOLUME 97 fL (80-96); MONOCYTES # (AUTO) 1.4 /CMM (0.1-1.30); MONOCYTES % (AUTO) 10.7 % (2.0-12.0); NEUTROPHILS # (AUTO) 10.2 /CMM (1.8-8.9); PLATELET COUNT (AUTO) 321 /CMM (150-450); RDW COEFFICIENT OF VARIATION 15.9 (11.5-15.0); RED BLOOD CELL COUNT(AUTO) 2.91 MIL/uL (4.5-6.0); WHITE BLOOD COUNT (AUTO) 12.8 K/uL (4.3-11.0)
--- NOTE | 2017-09-15 13:20 | NUR ---
ENVIRONMENTAL CONSTRUCTION ENGINEER AT BEDSIDE.
[2017-09-15 13:24] LABS: CALCIUM, SERUM 9.4 mg/dL (8.5-10.1); CREATININE 2.2 mg/dL (0.6-1.3); POTASSIUM 5.2 mmol/L (3.5-5.1)
--- NOTE | 2017-09-15 13:24 | NUR ---
CALLED DIANA PATRICIO TO SEE ABOUT GETTING J TUBE REINSERTED WITH OUT BEING ADMITTED
[2017-09-15] MEDS ORDERED: LEVO75TA7 JT (13:45)
[2017-09-15] MEDS ORDERED: BACL10TA JT (13:45)
[2017-09-15] MEDS ORDERED: ASCO500T9 JT (13:45)
[2017-09-15] MEDS ORDERED: LACT1CAP61 JT (13:45)
[2017-09-15] MEDS ORDERED: INSU100I26 SQ (13:45)
--- NOTE | 2017-09-15 14:05 | NUR ---
FREQUENCY CHECKER AT BEDSIDE.
--- NOTE | 2017-09-15 14:10 | NUR ---
URINE OBTAINED VIA STRAIGHT CATH PER MD ORDERS AND SENT TO LAB.
--- NOTE | 2017-09-15 14:16 | NUR ---
CALLED DR DIANA PATRICIO (SURGEON) LEFT VOICEMAIL TO CALL BACK
--- NOTE | 2017-09-15 14:42 | NUR ---
REPORT GIVEN TO GALDINO MALDONADO FOR LAUREN UPON ADMISSION.
[2017-09-15 14:50] LABS: APPEARANCE,URINE Slightly Cloudy (CLEAR); BILIRUBIN,URINE Negative (NEGATIVE); BLOOD, URINE Negative Ery/uL (NEGATIVE); COLOR,URINE Yellow (YELLOW); KETONES,URINE Negative (NEGATIVE); LEUKOCYTE ESTERASE ,URINE Moderate (NEGATIVE); NITRITE, URINE Negative (NEGATIVE); PH,URINE 5.5 (5.0-8.0); PROTEIN,URINE 30 mg/dl (NEGATIVE); UGLUCOSE Negative (NEGATIVE); UROBILINOGEN,URINE 0.2 EU/dL (0.2)
[2017-09-15 14:59] LABS: BACTERIA,URINE Few /HPF (None Seen); RBC,URINE 0-3 /HPF (0-2); SQUAMOUS EPITHELIAL CELL,UR Few /HPF (None Seen); WBC,URINE 15-30 /HPF (0-3)
--- NOTE | 2017-09-15 15:03 | NUR ---
REPAGED CHANGE HOUSE ATTENDANT DR MARISOL PATRICIO FOR ADMISSION
[2017-09-15] MEDS ORDERED: PIPERACILLIN /TAZOBACTAM 3.375 G in IV D5W 50 ML IV ONE (15:30)
[2017-09-15] MEDS ORDERED: PIPERACILLIN /TAZOBACTAM 2.25 G in IV D5W 50 ML IV ONE (15:30)
--- NOTE | 2017-09-15 15:52 | NUR ---
REPAGED DR MARISOL PATRICIO
--- NOTE | 2017-09-15 16:13 | NUR ---
REPAGED SHENG WITH AUBREY
[2017-09-15] MEDS ORDERED: IV D5/0.45 NACL 1,000 ML IV ONE (16:30)
[2017-09-15] MEDS ORDERED: ONDANSETRON HCL/PF 4 MG/2 ML VIAL IVP PRN (17:00)
[2017-09-15] MEDS ORDERED: HYDROCODONE/APAP 5/325MG 1 EACH TABLET PO PRN (17:00)
[2017-09-15] MEDS ORDERED: Z GUARD REMEDY 2 OZ OINT TP PRN (17:00)
[2017-09-15] MEDS ORDERED: ZOLPIDEM TARTRATE 5 MG TABLET PO PRN (17:00)
[2017-09-15] MEDS ORDERED: MAG HYDROX/AL HYDROX/SIMETH 30 ML UDC PO PRN (17:00)
--- NOTE | 2017-09-15 17:00 | NUR ---
PATIENT TRANSPORTED TO [facility] VIA ACLS PROTOCOL. RNVÍCTOR TO PROVIDE LAUREN.
--- NOTE | 2017-09-15 17:10 | NUR ---
TOOL AND DIE DESIGNER NOTES RECEIVED PATIENT FROM ER VIA GURNEY,WITH ADMITTING DIAGNOSIS OF J TUBE MALFUNCTION.GTUBE IS ON PLACE.PATIENT IS AXOX1.TRACH AND VENT DEPENDANT.NO DISTRESS NOTICED.IV ON RUFA WITH D5 1/2 NS AT 125CC/HR.CONNECTED TO TELE MONITOR ON SINUS RHYTHM.INITIAL ASSESSMENT DONE.BED LOCKED ,IN LOW POSITION,SRX3,SAFETY MAINTAINED.CALL LIGHT IN REACH.ENDORSED TO PM NURSE FOR LAUREN.
[2017-09-15 17:15] VITALS: BP 140/82
[2017-09-15] MEDS ORDERED: DIATR MEGLU/DIATRIZOATE SODIUM 30 ML BOTTLE (GASTROGRAPHIN) ONE (18:39)
[2017-09-15] MEDS: LEVETIRACETAM (500MG) 500 MG in IV NS 0.9% 100 ML IV SCH (18:40)
--- NOTE | 2017-09-15 18:40 | NUR ---
RN NOTES SEEN BY SALAZAR BASURTO WITH NEW ORDER FOR KUB WITH GASTROGRAFIN.
[2017-09-15] MEDS: HEPARIN SODIUM, PORCINE 5000 UNITS/1 ML VIAL SQ SCH (18:46)
--- NOTE | 2017-09-15 19:29 | NUR ---
ACCOUNTS RECEIVABLE MANAGER NOTES RECEIVED PT ON BED SLEEPING, A/O X1. ON TELE MONITOR ST 108. IV ACCESS D51/2NS @125CC/HR ON LUFA. HEAD OF BED ELEVATED. SIDE RAILS UP. CALL LIGHT WITHIN REACH. BED ALARM ON. WILL CONTINUE TO MONITOR PT CLOSELY.
[2017-09-15] MEDS: IV NS 0.9% 1,000 ML IV PRN (19:48)
[2017-09-15 20:00] VITALS: BP 137/77
[2017-09-15] MEDS: PHENYTOIN SODIUM IV 50 MG/ML VIAL IV SCH (21:15)
[2017-09-15] MEDS ORDERED: PIPERACILLIN /TAZOBACTAM 2.25 G VIAL IV ONE (21:46)
[2017-09-15] MEDS: PIPERACILLIN /TAZOBACTAM 2.25 G in IV D5W 50 ML IV SCH (22:24)
[2017-09-16] VITALS: BP 103/58
[2017-09-16 04:00] VITALS: BP 103/53
[2017-09-16] MEDS ORDERED: PIPERACILLIN /TAZOBACTAM 2.25 G VIAL IV ONE (04:05)
[2017-09-16] MEDS: LEVETIRACETAM (500MG) 500 MG in IV NS 0.9% 100 ML IV SCH ×2 (04:29→17:26)
[2017-09-16] MEDS: PIPERACILLIN /TAZOBACTAM 2.25 G in IV D5W 50 ML IV SCH ×4 (05:32→23:18)
--- NOTE | 2017-09-16 06:23 | NUR ---
PUBLIC WORKS DIRECTOR NOTES NO ACUTE CHANGES NOTED DURING THEN SHIFT. PATIENT KEPT NPO. DUE MEDS GIVE. WOUND CARE DONE. HEAD OF BED ELEVATED. SIDE RAILS UP. CALL LIGHT IS PLACED WITHIN REACH. WILL ENDORSE TO THE AM NURSE FOR LAUREN.
[2017-09-16 06:40] LABS: BASOPHILS % (AUTO) 0.2 % (0.0-2.0); EOSINOPHILS % (AUTO) 1.2 % (0.0-6.0); HEMATOCRIT 24 % (39-51); LYMPHOCYTES # (AUTO) 1.5 /CMM (0.8-4.8); MEAN CORPUSCULAR HGB CONC 33 g/dl (31.0-36.0); MEAN CORPUSCULAR VOLUME 96 fL (80-96); MONOCYTES # (AUTO) 0.9 /CMM (0.1-1.30); MONOCYTES % (AUTO) 9.4 % (2.0-12.0); NEUTROPHILS # (AUTO) 6.9 /CMM (1.8-8.9); NEUTROPHILS % (AUTO) 73.2 % (43.0-81.0); PLATELET COUNT (AUTO) 318 /CMM (150-450); RDW COEFFICIENT OF VARIATION 16.2 (11.5-15.0); RED BLOOD CELL COUNT(AUTO) 2.48 MIL/uL (4.5-6.0); WHITE BLOOD COUNT (AUTO) 9.4 K/uL (4.3-11.0)
[2017-09-16 06:45] LABS: CALCIUM, SERUM 8.8 mg/dL (8.5-10.1); CREATININE 2.5 mg/dL (0.6-1.3); MAGNESIUM 2.1 mg/dL (1.8-2.4); POTASSIUM 3.8 mmol/L (3.5-5.1)
--- NOTE | 2017-09-16 07:30 | NUR ---
EDUCATIONAL PROGRAMMING DIRECTOR NOTES RECEIVED PATIENT IN BED,ALERT X1,GTUBE IS ON PLACE.PATIENT IS TRACH AND VENT DEPENDANT.NO DISTRESS NOTICED.IV ON RUFA WITH NS 75CC/HR.CONNECTED TO TELE MONITOR ON SINUS TACHY 106.BED LOCKED ,IN LOW POSITION,SRX3,SAFETY MAINTAINED.CALL LIGHT IN REACH.CONTINUE TO MONITOR.
[2017-09-16 08:00] VITALS: BP 90/60
[2017-09-16] MEDS: PHENYTOIN SODIUM IV 50 MG/ML VIAL IV SCH ×2 (08:06→20:10)
[2017-09-16] MEDS: HEPARIN SODIUM, PORCINE 5000 UNITS/1 ML VIAL SQ SCH ×2 (08:10→20:14)
--- NOTE | 2017-09-16 11:00 | NUR ---
MUD JACK NOZZLEMAN NOTES PATIENT NOTED WITH SEIZURE X1 LASTED FOR 3 SEC.AND ELEVATED TEMPERATURE OF 100.7LEFT MESSAGE TO DR PATRICIO.WAITING TO CALL BACK.
[2017-09-16 12:00] VITALS: BP 107/59
[2017-09-16] MEDS: ACETAMINOPHEN 325 MG TABLET PO PRN ×2 (12:58→20:10)
[2017-09-16] MEDS: IV NS 0.9% 1,000 ML IV PRN (12:58)
--- NOTE | 2017-09-16 13:15 | NUR ---
ENVIRONMENTAL SCIENCE PROFESSOR NOTES SEEN BY SALAZAR BASURTO NOTIFIED ABOUT THE ELEVATED TEMPERATURE AND SEIZURE EPISODE.SAID ITS OK TO START J TUBE FEEDING AND OK TO GIVE MEDS THROUGH J TUBE,PLACED AN ORDER FOR DIETARY CONSULT FOR J TUBE FEEDING.
[2017-09-16 14:08] LABS: APPEARANCE,URINE CLEAR (CLEAR); BILIRUBIN,URINE NEGATIVE (NEGATIVE); BLOOD, URINE TRACE-INTA Ery/uL (NEGATIVE); COLOR,URINE YELLOW (YELLOW); KETONES,URINE NEGATIVE (NEGATIVE); LEUKOCYTE ESTERASE ,URINE TRACE (NEGATIVE); NITRITE, URINE NEGATIVE (NEGATIVE); PH,URINE 7.5 (5.0-8.0); PROTEIN,URINE 1+ mg/dl (NEGATIVE); UGLUCOSE NEGATIVE (NEGATIVE); UROBILINOGEN,URINE 0.2 EU/dL (0.2)
[2017-09-16 15:28] LABS: WBC,URINE 25-30 /HPF (0-3)
[2017-09-16 15:29] LABS: BACTERIA,URINE Few /HPF (None Seen); SQUAMOUS EPITHELIAL CELL,UR Rare /HPF (None Seen)
[2017-09-16 15:36] LABS: EOSINOPHIL,URINE None Seen
[2017-09-16 16:00] VITALS: BP_SYST 102; BP_SYST 86; BP_DIAS 47; BP_DIAS 49
[2017-09-16 17:14] LABS: CREATININE, URINE 58.5 MG/DL (30.0-125.0); URINE TOTAL PROTEIN 68.9 mg/dL (0-11.9)
--- NOTE | 2017-09-16 19:00 | NUR ---
GARLAND MACHINE OPERATOR NOTES RECEIVED IN BED,ALERT X1, J TUBE IS ON PLACE.PATIENT IS TRACH AND VENT DEPENDANT.NO DISTRESS NOTICED DURING SHIFT.IV ON RUFA WITH NS 75CC/HR.CONNECTED TO TELE MONITOR ON SINUS TACHY 106.TEMPERATURE IS STILL ON 100S.APPLYING COOLING MEASURES AND PRN TYLENOL.BED LOCKED ,IN LOW POSITION,SRX3,SAFETY MAINTAINED.CALL LIGHT IN REACH.ENDORSED TO PM NURSE FOR LAUREN.
--- NOTE | 2017-09-16 19:20 | NUR ---
HYDRAULICS ENGINEER OPENING NOTES RECEIVED REPORT FROM AM RN. PATIENT OBTUNDED RESPONSIVE TO TACTILE STIMULI & OPENS EYES SPONTANEOUSLY. BREATHING EVEN & UNLABORED W/ TRACH INTACT & VENT SETTINGS AC16, TV 500, FIO2 30%, PEEP 0. ON TELE W/ SINUS RHYTHM, HR 80S. LEFT FOREARM IV INTACT & PATENT W/ DRESSING CDI & IVF NS @ 75 ML/HR. J-TUBE INTACT & FLUSHING WELL W/ NO COMPLICATIONS NOTED. NO S/S OF PAIN OR DISCOMFORT @ THIS TIME. SAFETY MEASURES IN PLACE W/ SIDE RAILS UP, BED LOCKED & IN LOWEST POSITION & BED ALARM ON. HOB ELEVATED FOR ASPIRATION PRECAUTIONS. WILL CONTINUE TO MONITOR.
[2017-09-16 20:00] VITALS: BP 94/47
[2017-09-17] VITALS (7 sets, daily range): BP systolic 99–119; BP diastolic 57–69
[2017-09-17] MEDS: LEVETIRACETAM (500MG) 500 MG in IV NS 0.9% 100 ML IV SCH ×2 (04:17→18:01)
[2017-09-17] MEDS: PIPERACILLIN /TAZOBACTAM 2.25 G in IV D5W 50 ML IV SCH ×3 (05:38→17:23)
[2017-09-17 06:52] LABS: BASOPHILS % (AUTO) 0.3 % (0.0-2.0); EOSINOPHILS % (AUTO) 2.2 % (0.0-6.0); HEMATOCRIT 24 % (39-51); LYMPHOCYTES # (AUTO) 1.5 /CMM (0.8-4.8); LYMPHOCYTES % (AUTO) 23.8 % (20.0-44.0); MEAN CORPUSCULAR HGB CONC 34 g/dl (31.0-36.0); MEAN CORPUSCULAR VOLUME 96 fL (80-96); MONOCYTES % (AUTO) 16.5 % (2.0-12.0); NEUTROPHILS # (AUTO) 3.6 /CMM (1.8-8.9); NEUTROPHILS % (AUTO) 57.2 % (43.0-81.0); PLATELET COUNT (AUTO) 312 /CMM (150-450); RDW COEFFICIENT OF VARIATION 16.2 (11.5-15.0); RED BLOOD CELL COUNT(AUTO) 2.44 MIL/uL (4.5-6.0); WHITE BLOOD COUNT (AUTO) 6.2 K/uL (4.3-11.0)
[2017-09-17 07:13] LABS: ALBUMIN 2.5 g/dL (3.4-5.0); BILIRUBIN,TOTAL 0.3 mg/dL (0.2-1.0); MAGNESIUM 2.3 mg/dL (1.8-2.4); PHOSPHORUS 3.2 mg/dL (2.5-4.9); POTASSIUM 3.5 mmol/L (3.5-5.1); TOTAL PROTEIN, SERUM 7.3 g/dL (6.4-8.2)
--- NOTE | 2017-09-17 08:00 | NUR ---
RATE SETTER NOTES PT RECIEVED IN BED OBTUNDED PT OPEN AND CLOSES EYES. DX WITH SEPSIS. PLACED ON TELEMONITOR SR. SKIN INTACT. PT ON NPO. PT HAS L FA 20G IV WITH GOOD BLOOD RETURN. NS 75ML/HR. J-TUBE LLQ. BED LOWEST LOCKED POSITION. CALL LIGHT WITHIN REACH. WILL CONTINUE TO MONITOR.
[2017-09-17] MEDS: HEPARIN SODIUM, PORCINE 5000 UNITS/1 ML VIAL SQ SCH ×2 (09:26→21:47)
[2017-09-17] MEDS: PHENYTOIN SODIUM IV 50 MG/ML VIAL IV SCH ×2 (09:26→21:49)
[2017-09-17] MEDS: IV NS 0.9% 1,000 ML IV PRN (11:38)
--- NOTE | 2017-09-17 12:33 | NUR ---
RN NOTES CALLED RN RUBBER GRINDER PAT ABOUT GTUBE FEEDING RESTART WAITING FOR RETURN CALL. RN RUBBER GRINDER PAT OK TO RESUME FEEDING.
--- NOTE | 2017-09-17 14:51 | NUR ---
RN NOTES RN SALAZAR GARCIA NOTIFIED OF PT SEIZER AND SHE WILL SEE IF PT IS OK TO RECEIVE ATIVAN. PT HAS POOR DIETARY INTAKE. PT OK FOR GTUBE FEEDING 60 ML/HR.
[2017-09-17] MEDS ORDERED: LORAZEPAM INJ 2 MG/ML VIAL IV PRN (15:30)
[2017-09-17] MEDS: GLUCERNA 1.2 1,000 ML BOTTLE GT PRN (15:35)
--- NOTE | 2017-09-17 15:46 | NUR ---
LABORER/KEY MAN NOTE G TUBE FEEDING STARTED ORDERED, KEEP HOB ELEVATED AT AL TIME
--- NOTE | 2017-09-17 19:00 | NUR ---
HUMAN RESOURCES FILE CLERK NOTE TOLERATED G TUBE FEEDING WELL NO RESIDUAL NOTED, KEEP HOB ELEVATED AT ALL CAROLANN
--- NOTE | 2017-09-17 20:10 | NUR ---
RN NOTES RECEIVED PATIENT AWAKE IN BED WITH NO RESPIRATORY DISTRESS OR SHORTNESS OF BREATH. BREATHING EVEN AND ULABORED. NO PHYSICAL MANIFESTATION OF PAIN OR DISCOMFORT. OBTUNDED. GTUBE INTACT AND IN PLACE, FEEDING WELL TOLERATED. NO RESIDEUAL. KEPT CLEAN AND DRY. WILL CONTINUE TO MONITOR.
[2017-09-18] VITALS: BP 104/63
[2017-09-18] MEDS: PIPERACILLIN /TAZOBACTAM 2.25 G in IV D5W 50 ML IV SCH ×4 (00:03→18:49)
[2017-09-18 04:00] VITALS: BP_SYST 100; BP_SYST 112; BP_DIAS 50; BP_DIAS 65
[2017-09-18] MEDS: LEVETIRACETAM (500MG) 500 MG in IV NS 0.9% 100 ML IV SCH (04:29)
[2017-09-18] MEDS: IV NS 0.9% 1,000 ML IV PRN (05:24)
[2017-09-18 06:59] LABS: BASOPHILS % (AUTO) 0.5 % (0.0-2.0); EOSINOPHILS % (AUTO) 3.4 % (0.0-6.0); HEMATOCRIT 23 % (39-51); HEMOGLOBIN 7.4 g/dL (13.5-17.5); LYMPHOCYTES % (AUTO) 17.7 % (20.0-44.0); MEAN CORPUSCULAR HGB CONC 33 g/dl (31.0-36.0); MEAN CORPUSCULAR VOLUME 97 fL (80-96); MONOCYTES # (AUTO) 0.6 /CMM (0.1-1.30); MONOCYTES % (AUTO) 10.8 % (2.0-12.0); NEUTROPHILS % (AUTO) 67.6 % (43.0-81.0); PLATELET COUNT (AUTO) 317 /CMM (150-450); RDW COEFFICIENT OF VARIATION 15.9 (11.5-15.0); RED BLOOD CELL COUNT(AUTO) 2.33 MIL/uL (4.5-6.0); WHITE BLOOD COUNT (AUTO) 5.9 K/uL (4.3-11.0)
--- NOTE | 2017-09-18 07:02 | NUR ---
RN NOTES NO SIGNIFICANT CHANGE OF CONDITION, REMAINS AFEBRILE WITH SKIN WARM AND DRY TO TOUCH. NO PHYSICAL MANIFESTATION OF PAIN OR DISCOMFORT. OBTUNDED, NON VERBAL. VITAL SIGNS WNL. KEPT CLEAN AND DRY. WILL ENDORSE TO AM SHIFT FOR CONTINUITY OF CARE
[2017-09-18 07:31] LABS: CALCIUM, SERUM 8.5 mg/dL (8.5-10.1); CREATININE 2.8 mg/dL (0.6-1.3); MAGNESIUM 1.9 mg/dL (1.8-2.4); PHOSPHORUS 3.1 mg/dL (2.5-4.9); POTASSIUM 3.6 mmol/L (3.5-5.1)
[2017-09-18 08:00] VITALS: BP 106/57
[2017-09-18] MEDS: PHENYTOIN SODIUM IV 50 MG/ML VIAL IV SCH (08:56)
[2017-09-18] MEDS: GLUCERNA 1.2 1,000 ML BOTTLE GT PRN (10:42)
--- NOTE | 2017-09-18 11:16 | NUR ---
KOTA GARCIA REIKI PRACTITIONER AWARE OF LAB RESULTS. SHE ORDERED TO HOLD HEPARIN FOR NOW. ALSO ORDERED TO OBTAIN AN OCCULT STOOL
[2017-09-18] MEDS: HEPARIN SODIUM, PORCINE 5000 UNITS/1 ML VIAL SQ SCH ×2 (11:20→21:57)
[2017-09-18 12:00] VITALS: BP 107/50
[2017-09-18 12:09] LABS: PTH, INTACT 39 pg/mL (15-65)
[2017-09-18 13:48] LABS: IRON, SERUM 37 ug/dl (50-175); TOTAL IRON BINDING CAPACITY 155 ug/dl (250-450)
[2017-09-18 14:02] LABS: FERRITIN 188 ng/mL (8-388)
[2017-09-18 16:00] VITALS: BP 112/50
[2017-09-18 16:31] LABS: OCCULT BLOOD STOOL NEGATIVE (NEGATIVE)
--- NOTE | 2017-09-18 18:47 | NUR ---
OCCULT STOOL NEGATIVE, CONTINUE HEPARIN PER KOTA GARCIA IV ON LEFT HAND INFILTRATED, 22 GAGUE STARTED ON RIGHT HAND ICE PACK APPLIED TO LEFT HAND
--- NOTE | 2017-09-18 18:47 | NUR ---
OCCULT STOOL NEGATIVE, CONTINUE HEPARIN PER KOTA GARCIA IV ON LEFT HAND INFILTRATED, 22 GAGUE STARTED ON RIGHT HAND
[2017-09-18] MEDS: BLOOD SUGAR DIAGNOSTIC 1 EACH STRIP IN SCH (18:49)
--- NOTE | 2017-09-18 19:00 | NUR ---
RN NOTES IV SITE ON RIGHT HAND PATENT AND INTACT. NO IV INSERTION CONTRAINDICATIONS NOTED FROM PATIENT'S HISTORY AND CURRENT REPORT
--- NOTE | 2017-09-18 19:25 | NUR ---
RN CLOSING NOTES: PATIENT RESTING IN BED. NONLABORED BREATHING NOTED ON MECHANICAL VENTILATION PER ORDERS. NO FACIAL GRIMACING. PATIENT SINUS RHYTHM THROUGHOUT SHIFT, SUCTIONED PRN. PATIENT TOLERATING GLUCERNA PER ORDERS. NO RESIDUALS NOTED. PATIENT BEING MONITORED FOR SEIZURES DURING SHIFT. SAFETY CHECKS DONE Q15 MINS BY ME AND LOG FEEDER ASSIGNED. NO SEIZURES NOTED. IV SITE ON RIGHT HAND 22 PATENT AND INTACT. CURRENT FLUIDS ORDERED D5 W AT 60 ML/HOUR. KOTA GARCIA NOTIFIED THAT NS WAS HELD IN AM DUE TO SODIUM LEVEL. PATIENT KEPT CLEAN AND DRY. TURNED AND REPOSITIONED EVERY 2 HOURS. ENDORSED TO NEXT SHIFT
[2017-09-18 20:00] VITALS: BP_SYST 104; BP_SYST 161; BP_DIAS 61; BP_DIAS 79
--- NOTE | 2017-09-18 20:15 | NUR ---
RN NOTES IN BED, LYING COMFORTABLY WITH NO DISTRESS NOTED. BREATHING EVEN AND UNLABORED. PHYSICAL MANIFESTAION OF PAIN OR DISCOMFORT. REMAINS AFEBRILE WITH SKIN WARM AN DRY TO TOUCH. OBTUNDED, NON VERBAL.. KEPT CLEAN AND DRY. WILL CONTINUE TO MONITOR.
[2017-09-18] MEDS: LEVETIRACETAM SOL (5 ML) 100 MG/ML UDC PO SCH (21:54)
[2017-09-18] MEDS: PHENYTOIN EXTENDED RELEASE 100 MG CAPSULE PO SCH (22:09)
[2017-09-19] VITALS: BP_SYST 98; BP_DIAS 55; BP_DIAS 61
[2017-09-19] MEDS: IV D5W 1,000 ML IV PRN ×2 (01:55→23:58)
[2017-09-19 04:00] VITALS: BP_SYST 111; BP_SYST 95; BP_DIAS 48; BP_DIAS 52
[2017-09-19] MEDS: PIPERACILLIN /TAZOBACTAM 2.25 G in IV D5W 50 ML IV SCH ×4 (05:40→11:55)
[2017-09-19] MEDS: BLOOD SUGAR DIAGNOSTIC 1 EACH STRIP IN SCH ×5 (05:40→23:46)
[2017-09-19] MEDS: GLUCERNA 1.2 1,000 ML BOTTLE GT PRN (05:40)
[2017-09-19 07:34] LABS: BASOPHILS % (AUTO) 0.4 % (0.0-2.0); EOSINOPHILS % (AUTO) 2.9 % (0.0-6.0); HEMATOCRIT 23 % (39-51); HEMOGLOBIN 7.5 g/dL (13.5-17.5); LYMPHOCYTES # (AUTO) 1.2 /CMM (0.8-4.8); LYMPHOCYTES % (AUTO) 15.8 % (20.0-44.0); MEAN CORPUSCULAR HGB CONC 33 g/dl (31.0-36.0); MEAN CORPUSCULAR VOLUME 97 fL (80-96); MONOCYTES # (AUTO) 0.6 /CMM (0.1-1.30); NEUTROPHILS # (AUTO) 5.8 /CMM (1.8-8.9); NEUTROPHILS % (AUTO) 73.9 % (43.0-81.0); PLATELET COUNT (AUTO) 355 /CMM (150-450); RDW COEFFICIENT OF VARIATION 16.4 (11.5-15.0); RED BLOOD CELL COUNT(AUTO) 2.32 MIL/uL (4.5-6.0); WHITE BLOOD COUNT (AUTO) 7.9 K/uL (4.3-11.0)
[2017-09-19 07:47] LABS: CALCIUM, SERUM 8.7 mg/dL (8.5-10.1); CREATININE 2.6 mg/dL (0.6-1.3); MAGNESIUM 1.8 mg/dL (1.8-2.4); PHOSPHORUS 3.6 mg/dL (2.5-4.9); POTASSIUM 3.8 mmol/L (3.5-5.1)
[2017-09-19 08:00] VITALS: BP 102/56
--- NOTE | 2017-09-19 08:34 | NUR ---
REELING AND TUBING MACHINE OPERATOR NOTE PATIENT RESTING IN BED. YES OPEN ,NONLABORED BREATHING NOTED ON MECHANICAL VENTILATION PER ORDERS. AMBU BAG AT HOB NO FACIAL GRIMACING BUT NOTED SKIN IS DIAPHORETIC . PATIENT SINUS RHYTHM 87 SUCTIONED DONE WITH WHITE THICK SECRETION NOTED MOD AMT PATIENT ON G TUBE FEEDING ORDERED TOLERATING GLUCERNA NO RESIDUALS NOTED. . IV SITE ON RIGHT HAND 22 PATENT AND INTACT. NO S\S INFECTION NOTED ,CURRENT FLUIDS ORDERED D5 W AT 60 ML/HOUR.BED IN LOWEST AND LOCKED POSITION , CALL LIGHT WITHIN REACH WILL CONT TO MONITOR CLOSELY .
[2017-09-19] MEDS: LEVETIRACETAM SOL (5 ML) 100 MG/ML UDC PO SCH ×2 (09:28→20:34)
[2017-09-19] MEDS: PHENYTOIN EXTENDED RELEASE 100 MG CAPSULE PO SCH ×2 (09:28→20:34)
[2017-09-19] MEDS: HEPARIN SODIUM, PORCINE 5000 UNITS/1 ML VIAL SQ SCH ×2 (09:32→20:35)
--- NOTE | 2017-09-19 11:34 | NUR ---
RN NOTES PER DIETARY RECOMMENDATION OK TO START GTUBE FEEDING AT 60ML/HR
[2017-09-19 12:00] VITALS: BP 94/48
[2017-09-19] MEDS ORDERED: GLUCERNA 1.2 1,000 ML BOTTLE GT PRN ×2 (12:00→18:32)
--- NOTE | 2017-09-19 13:30 | NUR ---
telesales professional notes spoke with rn ethan gaona notified bp of 94/48, temp 99.5. stated pt possible discharge.
[2017-09-19] MEDS ORDERED: LEVOFLOXACIN 750 MG /D5W 150ML 750 MG in PREMIX 1 EA IV SCH (15:00)
[2017-09-19 16:00] VITALS: BP 98/55
[2017-09-19] MEDS: ACETAMINOPHEN 325 MG TABLET PO PRN (16:56)
--- NOTE | 2017-09-19 18:18 | NUR ---
RN NOTES PT SUCTIONED. REPOSITIONED. STABLE CONDITION. BED LOCKED LOWEST POSITION. WILL CONTINUE TO MONITOR.
--- NOTE | 2017-09-19 19:30 | NUR ---
PT RCVD TRACHED PORTEX 9 ON VENT WITH NOTED SETTINGS. TRACH PATENT AND SECURE. NO RESP DISTRESS NOTED. SUCTIONED MODERATE AMOUNT OF YELLOW THICK SECRETIONS. ALARMS ARE SET AND AUDIBLE, VENT PLUGGED INTO RED OUTLET. AMBU BAG BEDSIDE. AMBU BAG AT BEDSIDE ,WILL CONTINUE TO MONITOR
[2017-09-19 20:00] VITALS: BP 111/55
[2017-09-20] VITALS: BP 111/58
[2017-09-20 04:00] VITALS: BP 118/60
[2017-09-20] MEDS: BLOOD SUGAR DIAGNOSTIC 1 EACH STRIP IN SCH ×3 (05:29→17:27)
[2017-09-20 06:18] LABS: BASOPHILS % (AUTO) 0.6 % (0.0-2.0); EOSINOPHILS % (AUTO) 3.8 % (0.0-6.0); HEMATOCRIT 24 % (39-51); HEMOGLOBIN 7.8 g/dL (13.5-17.5); LYMPHOCYTES # (AUTO) 1.2 /CMM (0.8-4.8); LYMPHOCYTES % (AUTO) 21.9 % (20.0-44.0); MEAN CORPUSCULAR HGB CONC 33 g/dl (31.0-36.0); MEAN CORPUSCULAR VOLUME 97 fL (80-96); MONOCYTES # (AUTO) 0.7 /CMM (0.1-1.30); NEUTROPHILS # (AUTO) 3.4 /CMM (1.8-8.9); NEUTROPHILS % (AUTO) 61.7 % (43.0-81.0); PLATELET COUNT (AUTO) 332 /CMM (150-450); RDW COEFFICIENT OF VARIATION 16.5 (11.5-15.0); RED BLOOD CELL COUNT(AUTO) 2.44 MIL/uL (4.5-6.0); WHITE BLOOD COUNT (AUTO) 5.6 K/uL (4.3-11.0)
[2017-09-20 06:33] LABS: CALCIUM, SERUM 8.7 mg/dL (8.5-10.1); CREATININE 2.6 mg/dL (0.6-1.3); MAGNESIUM 1.9 mg/dL (1.8-2.4); PHOSPHORUS 3.4 mg/dL (2.5-4.9); POTASSIUM 4.1 mmol/L (3.5-5.1)
[2017-09-20 07:07] LABS: *SPE A/G RATIO 0.7 (0.7-1.7); *SPE ALBUMIN 2.7 g/dL (2.9-4.4); *SPE ALPHA-1-GLOBULIN 0.4 g/dL (0.0-0.4); *SPE BETA GLOBULIN 0.8 g/dL (0.7-1.3); *SPE GLOBULIN, TOTAL 3.7 g/dL (2.2-3.9); *SPE M-SPIKE Not Observed g/dL (Not Observed); *SPEGAMMA GLOBULIN 1.4 g/dL (0.4-1.8)
--- NOTE | 2017-09-20 07:45 | NUR ---
DIRECTOR GROUP SALES NOTE: RECEIVED PATIENT IN BED, ASLEEP AND AROUSABLE W/ TOUCH. VENT-TRACH DEPENDENT SATURATING 100%. NO FACIAL GRIMACING NOTED. HOB ELEVATED. ON GT FEEDING OF GLUCERNA 1.2 @ 60CC/HR NO RESIDUAL WAS NOTED. ON TOBACCO SCRAP SIFTER, SR HR= 71. (R) HAND IV LINE INFUSING D5W @60ML/HR. BED ALARM AND LOCKED AT ALL TIMES. LOW BED POSITION. ON SEIZURE PRECAUTION. CALL LIGHT WITHIN REACH. AND NEEDS ANTICIPATED.
[2017-09-20 08:00] VITALS: BP 117/51
[2017-09-20] MEDS: LEVETIRACETAM SOL (5 ML) 100 MG/ML UDC PO SCH ×2 (09:03→20:46)
[2017-09-20] MEDS: HEPARIN SODIUM, PORCINE 5000 UNITS/1 ML VIAL SQ SCH ×2 (09:04→20:46)
[2017-09-20] MEDS: PHENYTOIN EXTENDED RELEASE 100 MG CAPSULE PO SCH ×2 (09:04→20:45)
[2017-09-20 12:00] VITALS: BP_SYST 110; BP_DIAS 50; BP_DIAS 58
[2017-09-20] MEDS ORDERED: PHEN100C4 PO (15:03)
[2017-09-20 16:00] VITALS: BP 109/57
[2017-09-20] MEDS: IV D5W 1,000 ML IV PRN (16:54)
[2017-09-20] MEDS ORDERED: LACTOBACILLUS RHAMNOSUS GG 1 EACH CAP.SPRINK PO SCH (17:00)
--- NOTE | 2017-09-20 18:10 | NUR ---
AIRPLANE ELECTRICAL REPAIRER NOTE: CALLED AND SPOKE W/ JOEL CONCEPCION AT [facility] RE: THE PATIENT'S RETURN TO THE FACILITY. ALL DISCHARGE MEDICATION WAS PROCESS VIA EXIT CARE AND THE NEW PRESCRIPTION FOR DILANTIN WAS RELAYED. ETA FOR THE PATIENT WAS 8:30 PM AND REPORT WILL BE GIVEN TO PM SHIFT NURSE. ALL DISCHARGE PAPER WAS PREPARED AND EXIT CARE WAS DONE. WILL INFORM PM SHIFT NURSE TO EDIT EXIT CARE IF THERE'S ANY CHANGES.
[2017-09-20 20:00] VITALS: BP 119/44
--- NOTE | 2017-09-20 21:45 | NUR ---
MINE PROMOTOR NOTES DISCHARGED PATIENT. PICKED UP BY 3 AMBULANCE STAFF WITH A YISSEL. JTUBE STILL INTACT AND PATENT UPON DISCHERGE. IV PERIPHERAL LINE REMOVED FROM RIGHT HAND. PATIENT STILL ON VENT/TRACH WITH NO SIGNS OF SOB OR DISTERESS. PATIENT DESTINATION TO [facility]. GAVE REPORT TO JOEL FERRERA.
[2017-12-27] MEDS ORDERED: FERR220S17 JT (15:41)
[2017-12-27] MEDS ORDERED: PHEN100C4 JT (15:41)
[2017-12-30] MEDS ORDERED: NUT.237L30 JT (11:55)
[2017-12-30] MEDS ORDERED: ACET650S26 JT (11:55)
[2018-02-03] MEDS ORDERED: HEPA50008 IJ (03:56)
== END 2017-09-20 22:05 | DRG 252 ==
LOC: ER 12:24 → TELE1 15:45
PROVIDERS: ADMIT Nurse Practitioner Acute Care; ATTEND Nurse Practitioner Acute Care
PROC: 5A1955Z Respiratory Ventilation, Greater than 96 Consecutive Hours (ICD-10-PCS; principal; 2017-09-15)
DX: K94.13 Enterostomy malfunction (principal); A41.9 Sepsis, unspecified organism; G93.1 Anoxic brain damage, not elsewhere classified; Z99.11 Dependence on respirator [ventilator] status; J96.11 Chronic respiratory failure with hypoxia; N17.9 Acute kidney failure, unspecified; I12.0 Hypertensive chronic kidney disease with stage 5 chronic kidney disease or end stage renal disease; N18.5 Chronic kidney disease, stage 5; R53.2 Functional quadriplegia; E46 Unspecified protein-calorie malnutrition; N18.9 Chronic kidney disease, unspecified; N39.0 Urinary tract infection, site not specified; R32 Unspecified urinary incontinence; R13.10 Dysphagia, unspecified; G40.909 Epilepsy, unspecified, not intractable, without status epilepticus; E11.22 Type 2 diabetes mellitus with diabetic chronic kidney disease; D63.1 Anemia in chronic kidney disease; E03.9 Hypothyroidism, unspecified; Z79.4 Long term (current) use of insulin; Z79.899 Other long term (current) drug therapy; Y84.9 Medical procedure, unspecified as the cause of abnormal reaction of the patient, or of later complication, without mention of misadventure at the time of the procedure; Y82.9 Unspecified medical devices associated with adverse incidents; Y92.129 Unspecified place in nursing home as the place of occurrence of the external cause; T65 Toxic effect of other and unspecified substances
CPT/HCPCS: 31720; 36415; 71045-TC; 74018; 76770-TC; 80048-TC; 80053-TC; 80185-TC; 81000-TC; 82272-TC; 82550-TC; 82570-TC; 82728-TC; 82962-TC; 83540-TC; 83605-TC; 83735-TC; 83970; 84100-TC; 84155; 84155-TC; 84165; 84300-TC; 85025-TC; 87040-TC; 87081-TC; 87086-TC; 94002-TC; 94003-TC; 94760-TC; 94762-TC; 99082-TC; A4216; A4606; J1165; J1644; J1953; J1956; J2543; J3490; J7030; J7042; J7060; J7070; Q9963; Z7610

== ENCOUNTER 2017-12-24 10:14 | Emergency (ER) | payer MEDICAID ==
[~2017-12-24] VITALS: Ht 160 cm; Wt 82.1 kg
[2017-12-24 10:14] VITALS: BP 96/59
[~2017-12-24 10:14] MED LIST changes: -ALLA266C2 TP; +ASCO500T9 GT; +BACL10TA GT; -CEFE2FRO IV; -CHLO25TA13 JT; -FOLI0.8T2 GT; -HYDR-552 JT; +INSU100I26 SQ; +LACT1CAP61 GT; +LEVE100S GT; -LEVE100S JT; -LEVO25TA9 JT; +LEVO75TA7 GT; -METO5SOL JT; -PHEN100C4 JT; +PHEN100C4 PO; +POTA20LI4 GT; -POTA20LI4 JT; +PROP40TA7 GT; -PROP40TA7 JT
[2017-12-24] MEDS ORDERED: DIATR MEGLU/DIATRIZOATE SODIUM 30 ML BOTTLE (GASTROGRAPHIN) ONE (10:41)
--- NOTE | 2017-12-24 11:14 | NUR ---
PT WAS BROUGHT INTO ER FOR G-TUBE REPLACEMENT. PT IS ON [facility] VENT WITH A PORTEX 9 TRACH, SETTINGS FOLLOWED: AC 16, 500, 30%, +5. VENT IS PLUGGED INTO RED OUTLET. ALARMS ARE ON AND AUDIBLE. AMBU BAG IS AT BEDSIDE. PT SUCTIONED WITH SMALL THIN WHITE SECRETIONS. PT IS STABLE AND WILL CONT TO MONITOR. Addendum: 12/24/17 at 1117 by HENRI SANDHU RT Amended: Links added.
--- NOTE | 2017-12-24 11:39 | NUR ---
TRANSPORT WITH RT WAS SET UP [facility]ROUGH [facility] - TRIP#[id number] - ETA [id number]
== END 2017-12-24 13:12 ==
LOC: ER 10:15
DX: Z93.1 Gastrostomy status (principal); G93.40 Encephalopathy, unspecified; I10 Essential (primary) hypertension; E11.9 Type 2 diabetes mellitus without complications; F32.9 Major depressive disorder, single episode, unspecified; E03.9 Hypothyroidism, unspecified; G40.909 Epilepsy, unspecified, not intractable, without status epilepticus; J96.10 Chronic respiratory failure, unspecified whether with hypoxia or hypercapnia; Z93.0 Tracheostomy status; Z79.4 Long term (current) use of insulin; Z79.899 Other long term (current) drug therapy
CPT/HCPCS: 74018; 99283; A4606; Q9963; Z7610; 94002-TC

== ENCOUNTER 2017-12-27 14:03 | Inpatient (IN) | payer MEDICAID ==
[~2017-12-27] VITALS: Ht 165.1 cm; Wt 80.1 kg
--- NOTE | 2017-12-27 14:05 | NUR ---
PT BIB PRIVATE AMBULANCE TO ER BED 05. PER REPORT, HERE FOR J TUBE MALFUNCTION. PT IS TRACH PT W/ CURRENT SETTING AC RATE 16 TV 500 FI02 30% PEEP 5. OM MONITOR. VSS. AWAITING MD BRAVO.
--- NOTE | 2017-12-27 14:07 | NUR ---
DR MONSALVE AT BEDSIDE FOR EVAL.
[2017-12-27 14:17] VITALS: BP 109/70
--- NOTE | 2017-12-27 14:18 | NUR ---
IV LINE STARTED BLOOD DRAWN AND SENT TO LAB.
--- NOTE | 2017-12-27 14:19 | NUR ---
RT PATIENT BROUGHT INTO ER VIA TRANSPORT TEAM. PATIENT TRACHED ON [facility] VENT PLACED ON 840 VENT WITH SAME SETTINGS HOME FACILITY. VENT ALARMS CHECKED + AUDIBLE. CUFF PRESSURE CHECKED GUM MACHINE OPERATOR. PATIENT SUCTIONED WITH SMALL AMT PALE SEMITHICK SECRETIONS. B/S DIM. PATIENT NON VERBAL, NON RESPONSIVE, NO SOB NOTED. AMBU BAG AT [facility]. Addendum: 12/27/17 at 1424 by ML SQUIRES RT Amended: Links added.
[2017-12-27 14:24] LABS: BASOPHILS % (AUTO) 0.4 % (0.0-2.0); EOSINOPHILS % (AUTO) 3.2 % (0.0-6.0); HEMATOCRIT 31 % (39-51); HEMOGLOBIN 9.5 g/dL (13.5-17.5); LYMPHOCYTES # (AUTO) 1.4 /CMM (0.8-4.8); LYMPHOCYTES % (AUTO) 11.9 % (20.0-44.0); MEAN CORPUSCULAR HEMOGLOBIN 28 PG (26.0-33.0); MEAN CORPUSCULAR HGB CONC 31 g/dl (31.0-36.0); MEAN CORPUSCULAR VOLUME 93 fL (80-96); MONOCYTES # (AUTO) 0.9 /CMM (0.1-1.30); MONOCYTES % (AUTO) 7.4 % (2.0-12.0); NEUTROPHILS # (AUTO) 8.9 /CMM (1.8-8.9); NEUTROPHILS % (AUTO) 77.1 % (43.0-81.0); PLATELET COUNT (AUTO) 426 /CMM (150-450); RDW COEFFICIENT OF VARIATION 16.8 (11.5-15.0); RED BLOOD CELL COUNT(AUTO) 3.35 MIL/uL (4.5-6.0); WHITE BLOOD COUNT (AUTO) 11.6 K/uL (4.3-11.0)
[2017-12-27 14:33] LABS: CALCIUM, SERUM 9.4 mg/dL (8.5-10.1); CREATININE 2.7 mg/dL (0.6-1.3); POTASSIUM 4.1 mmol/L (3.5-5.1)
[2017-12-27 14:37] LABS: INR 1.03 (0.85-1.15)
--- NOTE | 2017-12-27 15:06 | NUR ---
CALLED AND PAGED DR LENIN PATRICIO
--- NOTE | 2017-12-27 15:29 | NUR ---
CALLED NURSING CANE SPLICER AND REQUESTED A MED SURG BED FOR THIS PT.
[2017-12-27] MEDS ORDERED: PHEN100C4 GT (15:41)
[2017-12-27] MEDS ORDERED: FERR220S17 GT (15:41)
--- NOTE | 2017-12-27 15:49 | NUR ---
Owen davila in [facility] - 12/27/17 at 1550 by KARLEY PT IS ASSIGNED TO HUI RM#: [id number], DX: ENCEPHALOPATHY, LEFT HIP DISLOCATION, RENAL FAILURE, AND ACCEPTING MD: DR PADILLA.
--- NOTE | 2017-12-27 15:50 | NUR ---
PT IS ASSIGNED TO #: [id number], DX: DYSFUNCTIONAL G TUBE, AND ACCEPTING MD: DR PATRICIO
--- NOTE | 2017-12-27 15:52 | NUR ---
BEDSIDE REPORT GIVEN TO BRIANDA MALDONADO. PT AWAITING TRANSFER TO FLOOR.
[2017-12-27 16:17] VITALS: BP 118/72
[2017-12-27 16:40] VITALS: BP 119/72
--- NOTE | 2017-12-27 16:40 | NUR ---
RN NOTE RECEIVED REPORT FROM BELLA Acevedo RECEIVED 62 YEAR OLD MALE PATIENT FOR J-TUBE REPLACEMENT, J-TUBE SITE IS LEAKING. PATIENT IS NONVERBAL, ALERT TO TACTILE STIMULI AND IS ABLE TO EPON EYES. VENT/TRACH DEPENDENT WITH APPROPRIATE SETTINGS SATURATING WELL. ON APPLICATIONS DEVELOPMENT CONSULTANT SINUS RHYTHM HR OF 69. RIGHT HAND 20 GAUGE IV SITE INTACT AND PATENT. WOUND PICTURES TAKEN AND DOCUMENTED IN CHART. ALL SAFETY MEASURES DONE. BED LOW AND LOCKED POSITION. PLACED CALL LIGHT WITH IN REACH. WILL CONTINUE TO MONITOR.
[2017-12-27 18:00] VITALS: BP 119/72
--- NOTE | 2017-12-27 18:59 | NUR ---
RN NOTE CALLED THE GROUP OF DR MARISOL PATRICIO TO NOTIFY DOCTOR ABOUT MEDICATION RECONCILIATION FOR PATIENT. SPOKE TO ANSWERING SERVICE TO RELAY MESSAGE FOR MEDICATION RECONCILIATION FOR PATIENT. ANSWERING SERVICE SAID THAT DR GERMAN IS THE WET TRIMMER DOCTOR. WILL RELAY MESSAGE AND HAVE DR GERMAN CALL BACK. AWAITING FOR CALL BACK. WILL ENDORSE TO NEXT SHIFT TO FOLLOW UP.
--- NOTE | 2017-12-27 19:30 | NUR ---
TELE/RN NOTES: RECEIVED PT. IN BED W/ HOB ELEVATED. NO FACIAL GRIMACES OR MOANING NOTED. ON TELE MONITOR W/ SR. ON TRACH TOLERATING PRESCRIBED SETTINGS WELL. ASPIRATION PRECAUTION MAINTAINED. W/ GT SITE LEAKING W/ SURROUNDING SITE REDNESS NOTED. DR. GERMAN CALLED BACK AND VERIFIED MEDICATION RECONCILIATION. W/ RH G 20 PATENT AND INTACT W/ D5 1/2 NS @ 75 CC/HR. INCONTINENT OF B/B. CALL LIGHT W/ REACH.
[2017-12-27 20:00] VITALS: BP 113/67
[2017-12-27] MEDS ORDERED: IV D5/0.45 NACL 1,000 ML IV ONE (20:00)
[2017-12-27] MEDS ORDERED: INSULIN REGULAR, HUMAN 100 UNIT/ML 3 ML VIAL SQ PRN (20:00)
[2017-12-27] MEDS ORDERED: DEXTROSE 50%-WATER 50 ML DISP.SYRIN IV PRN (20:00)
[2017-12-27] MEDS: BACLOFEN (10 MG) 10 MG TABLET PEG SCH (21:00)
[2017-12-27] MEDS: PROPRANOLOL HCL 40 MG TABLET JT SCH (21:00)
[2017-12-27] MEDS ORDERED: PHENYTOIN SUSP UDC 100 MG/4 ML UDC JT SCH (21:00)
[2017-12-27] MEDS: PHENYTOIN SODIUM IV 50 MG/ML VIAL IV SCH (22:01)
[2017-12-27] MEDS: BLOOD SUGAR DIAGNOSTIC 1 EACH STRIP IN SCH (23:54)
[2017-12-28] VITALS: BP 113/67
[2017-12-28 04:00] VITALS: BP 110/61
[2017-12-28] MEDS: BLOOD SUGAR DIAGNOSTIC 1 EACH STRIP IN SCH ×4 (05:28→23:38)
[2017-12-28 06:38] LABS: BASOPHILS % (AUTO) 0.4 % (0.0-2.0); HEMATOCRIT 30 % (39-51); HEMOGLOBIN 9.2 g/dL (13.5-17.5); LYMPHOCYTES # (AUTO) 1.4 /CMM (0.8-4.8); LYMPHOCYTES % (AUTO) 18.4 % (20.0-44.0); MEAN CORPUSCULAR HEMOGLOBIN 29 PG (26.0-33.0); MEAN CORPUSCULAR HGB CONC 31 g/dl (31.0-36.0); MEAN CORPUSCULAR VOLUME 95 fL (80-96); MONOCYTES # (AUTO) 0.8 /CMM (0.1-1.30); MONOCYTES % (AUTO) 10.3 % (2.0-12.0); NEUTROPHILS # (AUTO) 5.2 /CMM (1.8-8.9); NEUTROPHILS % (AUTO) 66.9 % (43.0-81.0); PLATELET COUNT (AUTO) 408 /CMM (150-450); RDW COEFFICIENT OF VARIATION 17.8 (11.5-15.0); RED BLOOD CELL COUNT(AUTO) 3.13 MIL/uL (4.5-6.0); WHITE BLOOD COUNT (AUTO) 7.8 K/uL (4.3-11.0)
[2017-12-28 06:49] LABS: CALCIUM, SERUM 9.4 mg/dL (8.5-10.1); CREATININE 2.7 mg/dL (0.6-1.3); PHOSPHORUS 5.6 mg/dL (2.5-4.9); POTASSIUM 4.4 mmol/L (3.5-5.1)
--- NOTE | 2017-12-28 07:15 | NUR ---
PIPE PROCESSOR INITIAL NOTES RECEIVED REPORT AND PATIENT FROM PM NURSE. PT RESTING IN BED, NON VERBAL, OBTUNDED, OPENS EYES A TIMES, ON MECHANICAL VENT SETTINGS ORDERED BY MD SATURATING ABOVE 97%, ON TELE MONITOR SINUS RHTHYME HEART RATE 76, JTUBE PRESENT BUT CLAMPED AT THIS TIME DUE TO LEAKAGE AND MALFUNCTION, NPO AT THIS TIME, RT HAND 20G IV RUNNING D5 1/2 NS AT 75ML/HR MD ORDERED NO S/S OF INFILTRATION NOTED. ALL SAFETY MEASURES AND NEEDS MET, WILL CONTINUE TO MONITOR.
[2017-12-28 08:00] VITALS: BP 127/70
[2017-12-28] MEDS: PHENYTOIN SODIUM IV 50 MG/ML VIAL IV SCH ×2 (08:09→20:10)
[2017-12-28] MEDS: FUROSEMIDE 40 MG TABLET GT SCH (08:09)
[2017-12-28] MEDS: LEVOTHYROXINE SODIUM 75 MCG TABLET GT SCH (08:09)
[2017-12-28] MEDS: LEVETIRACETAM SOL (5 ML) 100 MG/ML UDC JT SCH ×2 (08:10→17:51)
[2017-12-28] MEDS: PROPRANOLOL HCL 40 MG TABLET JT SCH ×2 (08:10→20:10)
--- NOTE | 2017-12-28 08:10 | NUR ---
RT RECEIVED PT TRACHED VENT DEPENDENT WITH NOTED SETTINGS. GUIDE CHANGER DONE AND TRACH IS SECURE. VENT ALARMS CHECKED AND AUDIBLE. VENT PLUGGED IN RED OUTLET. AMBU BAG NOTED HOB. BILATERAL B/S RHONCHI. SX WITH MOD THN CLEAR/WHITE SECRETIONS. TOLERATING SETTINGS WELL, NO SOB OR RESP DISTRESS NOTED AT THIS TIME. WILL CONTINUE TO MONITOR T/O SHIFT.
[2017-12-28] MEDS: LACTOBACILLUS RHAMNOSUS GG 1 EACH CAP.SPRINK PEG SCH ×2 (08:11→17:50)
[2017-12-28] MEDS: BACLOFEN (10 MG) 10 MG TABLET PEG SCH ×2 (08:11→20:09)
[2017-12-28] MEDS: ASCORBIC ACID 500 MG TABLET PEG SCH (08:11)
[2017-12-28] MEDS ORDERED: DEXTROSE 50%-WATER 50 ML DISP.SYRIN IV PRN (08:30)
[2017-12-28] MEDS ORDERED: INSULIN REGULAR, HUMAN 100 UNIT/ML 3 ML VIAL SQ PRN (08:30)
[2017-12-28] MEDS: FERROUS SULFATE UDC 300 MG/5 ML UDC JT SCH ×3 (08:38→17:51)
[2017-12-28] MEDS: POTASSIUM CHLORIDE 20 MEQ POWDER PACKET PEG SCH (08:38)
[2017-12-28] MEDS ORDERED: FERROUS SULFATE UDC 300 MG/5 ML UDC JT SCH (09:00)
[2017-12-28] MEDS ORDERED: PHENYTOIN SUSP UDC 100 MG/4 ML UDC PO SCH (09:00)
[2017-12-28] MEDS ORDERED: BACLOFEN (10 MG) 10 MG TABLET GT SCH (09:00)
[2017-12-28] MEDS ORDERED: ASCORBIC ACID 500 MG TABLET GT SCH (09:00)
[2017-12-28] MEDS ORDERED: Medication Not On Formulary EA (Lactobacillus Acidophilus (Acidophilus) 1 EACH) JT SCH (09:00)
[2017-12-28] MEDS ORDERED: Medication Not On Formulary EA (Ferrous Sulfate 330 MG) JT SCH (09:00)
[2017-12-28] MEDS ORDERED: LEVETIRACETAM SOL (5 ML) 100 MG/ML UDC JT SCH (09:00)
[2017-12-28] MEDS ORDERED: POTASSIUM CHLORIDE 10 MEQ TABLET.SA GT SCH (09:00)
[2017-12-28] MEDS ORDERED: PROPRANOLOL HCL 40 MG TABLET JT SCH (09:00)
[2017-12-28] MEDS ORDERED: Medication Not On Formulary EA (Potassium Chloride 8 MEQ) JT SCH (09:00)
[2017-12-28] MEDS ORDERED: LEVOTHYROXINE SODIUM 75 MCG TABLET PO SCH (09:00)
[2017-12-28] MEDS ORDERED: FUROSEMIDE 20 MG TABLET GT SCH (09:00)
[2017-12-28 12:00] VITALS: BP 126/74
[2017-12-28] MEDS ORDERED: BLOOD SUGAR DIAGNOSTIC 1 EACH STRIP IN SCH (12:00)
[2017-12-28] MEDS: PANTOPRAZOLE 40 MG VIAL IV SCH (13:24)
[2017-12-28 16:00] VITALS: BP_SYST 114; BP_SYST 126; BP_DIAS 69; BP_DIAS 74
--- NOTE | 2017-12-28 17:19 | NUR ---
COMMUNICATIONS DEPARTMENT CHAIR NOTES SPOKE WITH DR MOSLEY AND STATED OK IF JTUBE LEAKS IF NO RESIDUAL START FEEDINGS PER MD ORDER, NOTIFIED DR ARMIJO THAT OK TO START BACK ON GLUCERNA 1.2 80CC/HR PER FACILITY ORDER AND STATED OK, WILL PUT IN ORDER AND START FEEDINGS MD ORDERED, WILL CONTINUE TO MONITOR JTUBE SITE, NO RESIDUAL NOTED, WOUND TX DONE WITH STOMAHESIVE PLACED, WILL CONTINUE TO MONITOR FOR LEAKAGE, FLUSHED 60 CC WITH NO PROBLEM.
[2017-12-28] MEDS ORDERED: GLUCERNA 1.2 1,000 ML BOTTLE JT PRN (18:00)
--- NOTE | 2017-12-28 18:40 | NUR ---
GRAIN TRIMMER ENDING NOTES PATIENT RESTING IN BED WITH NO ACUTE CHANGES NOTED, ALL NEEDS MET, ALL DUE MEDS GIVEN, BED BATH PROVIDED, CLEANSED JTUBE SITE PER MD ORDER FOR WOUND TX, PATIENT NO LONGER NPO PER MD REQUEST AND TO START GLUCERNA TUBE FEEDING @ 80CC/HR, AWAITING FOR FEEDING TO BE DELIVERED, WILL CONTINUE CARE WITH PM NURSE.
--- NOTE | 2017-12-28 18:47 | NUR ---
Patient is trach/vent dependent. Resides at [facility] [phone]. He is bedfast and totally dependent with adl's. Current dc plan is to return to to [facility] once discharge. Addendum: 12/28/17 at 1848 by IRINA ANTOINE RN Amended: Links added.
--- NOTE | 2017-12-28 19:12 | NUR ---
GRAPE CRUSHER NOTES RECEIVED PT ON BED, A/OX1. ON [facility] VENT SETTING SATURATING WELL. NO RESPIRATORY DISTRESS NOTED AT THIS TIME. ON TELE MONITOR SR 65. JTUBE FEEDING CLAMPED. WAITING FOR THE JTUBE FEEDING. IV ACCESS ON RIGHT HAND G20 D5 1/2 NS @75CC/HR. HEAD OF BED ELEVATED. SIDE RAILS UP. CALL LIGHT WITHIN REACH. BED ALARM ON. WILL CONTINUE TO MONITOR PT CLOSELY.
--- NOTE | 2017-12-28 19:42 | NUR ---
SHOE REPAIRER APPRENTICE NOTES CALLED DIETARY REGARDING GLUCERNA JTUBE FEEDING. AWAITING FOR THE FORMULA.
[2017-12-28 20:00] VITALS: BP 102/54
[2017-12-28] MEDS ORDERED: INSULIN GLARGINE, 100 UNIT/ML CARTRIDGE SQ SCH (22:00)
[2017-12-29] VITALS: BP 98/56
[2017-12-29 00:05] VITALS: BP 95/56
[2017-12-29 04:00] VITALS: BP 120/60
[2017-12-29] MEDS: BLOOD SUGAR DIAGNOSTIC 1 EACH STRIP IN SCH ×3 (05:14→17:27)
--- NOTE | 2017-12-29 06:40 | NUR ---
ELECTROTYPE FINISHER NOTES NO ACUTE CHANGES NOTED DURING THE SHIFT. NO RESIDUAL, NO LEAKING ON THE JTUBE SITE. DUE MEDS GIVEN. PROVIDED COMFORT AND SAFETY. HEAD OF BED ELEVATED. SIDE RAILS UP. CALL LIGHT WITHIN REACH. WILL ENDORSE TO THE AM NURSE FOR CONTINUITY OF CARE.
[2017-12-29 07:19] LABS: BASOPHILS % (AUTO) 0.3 % (0.0-2.0); EOSINOPHILS % (AUTO) 3.8 % (0.0-6.0); HEMATOCRIT 30 % (39-51); HEMOGLOBIN 9.4 g/dL (13.5-17.5); LYMPHOCYTES # (AUTO) 1.2 /CMM (0.8-4.8); LYMPHOCYTES % (AUTO) 14.3 % (20.0-44.0); MEAN CORPUSCULAR HEMOGLOBIN 30 PG (26.0-33.0); MEAN CORPUSCULAR HGB CONC 31 g/dl (31.0-36.0); MEAN CORPUSCULAR VOLUME 95 fL (80-96); MONOCYTES # (AUTO) 0.8 /CMM (0.1-1.30); MONOCYTES % (AUTO) 8.9 % (2.0-12.0); NEUTROPHILS # (AUTO) 6.2 /CMM (1.8-8.9); NEUTROPHILS % (AUTO) 72.7 % (43.0-81.0); PLATELET COUNT (AUTO) 393 /CMM (150-450); RDW COEFFICIENT OF VARIATION 18.7 (11.5-15.0); RED BLOOD CELL COUNT(AUTO) 3.18 MIL/uL (4.5-6.0); WHITE BLOOD COUNT (AUTO) 8.6 K/uL (4.3-11.0)
--- NOTE | 2017-12-29 07:20 | NUR ---
WIRE PHOTO OPERATOR NOTES: RECEIVED PT ON BED, NON VERBAL. NO APPARENT DISTRESS NOTED. NO FACIAL GRIMACING OR ANY SIGNS OF PAIN NOTED. ON [facility] VENT, SETTINGS ORDERED, NO SOB NOTED. ON TELE MONITOR SINUS RHYTHM HR 90BPM. JTUBE INTACT, NO RESIDUAL NOTED AT THIS TIME, ABLE TO TOLERATE FEEDING. IV ON RIGHT THERESA #20 INTACT AND PATENT, FLUSHING WELL. KEPT CLEAN, DRY AND COMFORTABLE. SAFETY AND FALL PRECAUTIONS OBSERVED AND MAINTAINED. WILL CONTINUE TO MONITOR PT.
[2017-12-29 07:30] LABS: ALBUMIN 3.1 g/dL (3.4-5.0); BILIRUBIN,TOTAL 0.3 mg/dL (0.2-1.0); CALCIUM, SERUM 9.2 mg/dL (8.5-10.1); CREATININE 2.8 mg/dL (0.6-1.3); MAGNESIUM 2.6 mg/dL (1.8-2.4); PHOSPHORUS 4.8 mg/dL (2.5-4.9); POTASSIUM 4.4 mmol/L (3.5-5.1); TOTAL PROTEIN, SERUM 8.6 g/dL (6.4-8.2)
--- NOTE | 2017-12-29 07:30 | NUR ---
RT RECEIVED PT TRACH VENT DEPENDENT WITH NOTED SETTINGS. SUPERVISOR DRILLING AND SHOOTING DONE AND TRACH IS SECURE. VENT ALARMS CHECKED AND AUDIBLE. VENT PLUGGED IN RED OUTLET. AMBU BAG NOTED HOB. B/S BILATERAL RHONCHI, SX WITH MOD THK WHITE/YELLOW SECRETIONS. PT ON CONTINUOS PULSE OX, SPO2 AND HR WITHIN NORMAL LIMIT. PT TOLERATING SETTINGS WELL, NO SOB OR RESP DISTRESS NOTED AT THIS TIME, WILL CONTINUE TO MONITOR T/O SHIFT.
[2017-12-29 08:00] VITALS: BP 122/70
[2017-12-29] MEDS: POTASSIUM CHLORIDE 20 MEQ POWDER PACKET PEG SCH (08:52)
[2017-12-29] MEDS: ASCORBIC ACID 500 MG TABLET PEG SCH (08:53)
[2017-12-29] MEDS: LEVETIRACETAM SOL (5 ML) 100 MG/ML UDC JT SCH ×2 (08:53→17:18)
[2017-12-29] MEDS: LACTOBACILLUS RHAMNOSUS GG 1 EACH CAP.SPRINK PEG SCH ×2 (08:53→17:19)
[2017-12-29] MEDS: BACLOFEN (10 MG) 10 MG TABLET PEG SCH (08:53)
[2017-12-29] MEDS: PHENYTOIN SODIUM IV 50 MG/ML VIAL IV SCH (08:53)
[2017-12-29] MEDS: FUROSEMIDE 40 MG TABLET GT SCH (08:54)
[2017-12-29] MEDS: FERROUS SULFATE UDC 300 MG/5 ML UDC JT SCH ×3 (08:54→17:18)
[2017-12-29] MEDS: LEVOTHYROXINE SODIUM 75 MCG TABLET GT SCH (08:54)
[2017-12-29] MEDS: PROPRANOLOL HCL 40 MG TABLET JT SCH (08:54)
[2017-12-29 12:00] VITALS: BP 101/62
[2017-12-29] MEDS: PANTOPRAZOLE 40 MG VIAL IV SCH (12:34)
[2017-12-29 16:00] VITALS: BP 121/52
--- NOTE | 2017-12-29 18:37 | NUR ---
ETCHED CIRCUIT PROCESSOR NOTES: PATIENT WAS DISCHARGED TO [facility]. REPORT GIVEN TO JAMEY. PT WAS BEING PICKED UP BY AMBULANCE CREW. PT IN STABLE CONDITION. NO APPARENT DISTRESS NOTED. NO FACIAL GRIMACING OR ANY SIGNS OF PAIN NOTED. JTUBE INTACT, NO RESIDUAL NOTED, DRESSING CHANGED ORDERED. BELONGINGS LIST SIGNED. PICTURE TAKEN AND PLACED ON CHART. DISCHARGE INSTRUCTIONS GIVEN.
[2017-12-30] MEDS ORDERED: ACET650S26 GT (11:55)
[2017-12-30] MEDS ORDERED: NUT.237L30 GT (11:55)
[2017-12-30] MEDS ORDERED: IPRA3AMP23 IH ×2 (11:55)
== END 2017-12-29 18:39 | DRG 252 ==
LOC: ER 14:05 → TELE1 16:17 → MEDSG1 12-28 08:23 → TELE1 12-28 08:37
PROVIDERS: ADMIT Internal Medicine; ATTEND Internal Medicine
PROC: 5A1945Z Respiratory Ventilation, 24-96 Consecutive Hours (ICD-10-PCS; principal; 2017-12-27)
DX: K94.13 Enterostomy malfunction (principal); Z99.11 Dependence on respirator [ventilator] status; G93.49 Other encephalopathy; J96.10 Chronic respiratory failure, unspecified whether with hypoxia or hypercapnia; R53.2 Functional quadriplegia; E87.0 Hyperosmolality and hypernatremia; Y92.129 Unspecified place in nursing home as the place of occurrence of the external cause; G40.909 Epilepsy, unspecified, not intractable, without status epilepticus; Z86.73 Personal history of transient ischemic attack (TIA), and cerebral infarction without residual deficits; Y84.9 Medical procedure, unspecified as the cause of abnormal reaction of the patient, or of later complication, without mention of misadventure at the time of the procedure; Y82.9 Unspecified medical devices associated with adverse incidents; R13.10 Dysphagia, unspecified; E03.9 Hypothyroidism, unspecified; D64.9 Anemia, unspecified; Z91.5 Personal history of self-harm; Z79.4 Long term (current) use of insulin; Z79.899 Other long term (current) drug therapy; Z87.01 Personal history of pneumonia (recurrent); I12.9 Hypertensive chronic kidney disease with stage 1 through stage 4 chronic kidney disease, or unspecified chronic kidney disease; E11.22 Type 2 diabetes mellitus with diabetic chronic kidney disease; N18.9 Chronic kidney disease, unspecified
CPT/HCPCS: 31720; 36415; 71045-TC; 80048-TC; 80053-TC; 82962-TC; 83735-TC; 84100-TC; 85025-TC; 85730-TC; 87081-TC; 94002-TC; 94003-TC; 94760-TC; 94762-TC; A4606; A6253; A6403; C9113; J1165; J1815; J1953; J3490; Z7610

== ENCOUNTER 2017-12-30 11:15 | Inpatient (IN) | payer MEDICAID ==
[~2017-12-30] VITALS: Ht 167.6 cm; Wt 80.7 kg
[~2017-12-30 11:15] MED LIST changes: +FERR220S17 GT; +PHEN100C4 GT; -PHEN100C4 PO
--- NOTE | 2017-12-30 11:20 | NUR ---
BIB PRIVATE EMT, G-TUBE SITE CELLULITIS AND LEAKAGE, NAD NOTED, VSS, RESP EVEN AND UNLABORED. PT WAS PUT ON MONITOR AND HOSPITAL GOWN, WAITNG FOR MD BRAVO.
--- NOTE | 2017-12-30 11:34 | NUR ---
CALLED DR LENIN PATRICIO, ON THE PHONE WITH ELMO BOSE.
--- NOTE | 2017-12-30 11:35 | NUR ---
RT NOTE RECEIVED PT FROM AMBULANCE IN STABLE CONDITION,NO DISTRESS NOTED, PLACED PT ON MECHANICAL VENT, PLUGGED INTO RED OUTLET, ABMUBAG AT [facility], WILL MONITOR CLOSELY
--- NOTE | 2017-12-30 11:40 | NUR ---
CALLED [facility], DR BOYKIN ON THE PHONE WITH ELMO PAGE.
[2017-12-30] MEDS ORDERED: PIPERACILLIN /TAZOBACTAM 3.375 G in IV D5W 50 ML IV STA (11:52)
[2017-12-30] MEDS ORDERED: IPRA3AMP23 IH ×2 (11:55)
[2017-12-30] MEDS ORDERED: NUT.237L30 GT (11:55)
[2017-12-30] MEDS ORDERED: ACET650S26 GT (11:55)
[2017-12-30] MEDS ORDERED: VANCOMYCIN 1 GM in IV D5W 250 ML IV ONE (12:00)
[2017-12-30 12:41] LABS: BASOPHILS # (AUTO) 0.1 /CMM (0.0-0.2); BASOPHILS % (AUTO) 0.7 % (0.0-2.0); HEMATOCRIT 30 % (39-51); HEMOGLOBIN 9.2 g/dL (13.5-17.5); LYMPHOCYTES # (AUTO) 1.4 /CMM (0.8-4.8); LYMPHOCYTES % (AUTO) 11.7 % (20.0-44.0); MEAN CORPUSCULAR HEMOGLOBIN 29 PG (26.0-33.0); MEAN CORPUSCULAR HGB CONC 31 g/dl (31.0-36.0); MEAN CORPUSCULAR VOLUME 94 fL (80-96); MONOCYTES # (AUTO) 0.8 /CMM (0.1-1.30); MONOCYTES % (AUTO) 6.8 % (2.0-12.0); NEUTROPHILS # (AUTO) 9.2 /CMM (1.8-8.9); NEUTROPHILS % (AUTO) 77.8 % (43.0-81.0); PLATELET COUNT (AUTO) 417 /CMM (150-450); RDW COEFFICIENT OF VARIATION 18.1 (11.5-15.0); RED BLOOD CELL COUNT(AUTO) 3.19 MIL/uL (4.5-6.0); WHITE BLOOD COUNT (AUTO) 11.9 K/uL (4.3-11.0)
[2017-12-30 12:53] LABS: INR 1.06 (0.85-1.15)
[2017-12-30 12:58] LABS: CARBON DIOXIDE 18 mmol/L (21-32); CHLORIDE 122 mmol/L (98-107); CREATININE 2.8 mg/dL (0.6-1.3); GLUCOSE 121 mg/dL (74-106); POTASSIUM 4.1 mmol/L (3.5-5.1); SODIUM SERUM 153 mmol/L (136-145); UREA NITROGEN, BLOOD 68 mg/dL (7-18)
[2017-12-30 12:59] LABS: TROPONIN I < 0.017 ng/mL (0.00-0.056)
[2017-12-30 13:04] LABS: ALANINE AMINOTRANSFERASE 87 U/L (12-78); ALKALINE PHOSPHATASE 230 U/L (46-116); ASPARTATE AMINOTRANSFERASE 31 U/L (15-37); BILIRUBIN,DIRECT 0.1 mg/dL (0.0-0.2); BILIRUBIN,TOTAL 0.2 mg/dL (0.2-1.0); TOTAL PROTEIN, SERUM 8.1 g/dL (6.4-8.2)
[2017-12-30 13:30] VITALS: BP 107/64
--- NOTE | 2017-12-30 13:50 | NUR ---
RT NOTE PT TRANSFERRED OVER TO [facility]UI, VENT PLUGGED INTO RED OUTLET, TRACH PATENT AND SECURE, AMBU BAG AND BACK UP TRACH AT [facility], NO DISTRESS NOTED WILL MONITOR CLOSELY
--- NOTE | 2017-12-30 14:00 | NUR ---
EMERGENCY MEDICAL TECHNICIAN BASIC OPENING NOTES. PT RECEIVED OBTUNDED, WITHDRAWS FROM PAIN. VENT AND TRACH DEPENDENT. SETTINGS PER RT, PLUGGED TO RED POWER POINT, CONT PULSE OX AND TELE MONITORING ESTABLISH. PT WITH IVC AT R ARM INTACT AND SALINE FLUSH PATENT. PT WITH REPORTED J TUBE, J TUBE SITE RED AND INFLAMED WITH YELLOWISH DISCHARGE. PT VITALS TAKEN AND ENTERED. RECEIVED CALL FROM SALAZAR BASURTO, CONSENT FOR J TUBE REPLACEMENT REQUESTED, RECEIVED AND CHARTED. LIGHT AIR DEFENSE ARTILLERY CREWMEMBER TO PLACE ORDERS ON ARRIVAL. PT APPEARS COMFORTABLE WITHOUT CONCERN OR COMPLAINT.
[2017-12-30] MEDS ORDERED: DIATR MEGLU/DIATRIZOATE SODIUM 30 ML BOTTLE (GASTROGRAPHIN) ONE (18:06)
[2017-12-30] MEDS ORDERED: ACETAMINOPHEN 650 MG/20.3 ML UDC GT PRN (19:00)
[2017-12-30] MEDS ORDERED: MISCELLANEOUS MED 1 EA EA XX ONE ×2 (19:00)
--- NOTE | 2017-12-30 19:13 | NUR ---
AIR QUALITY CHEMIST CLOSING NOTES. PT SEEN BY SALAZAR CARPENTER FOR JTUBE REPLACEMENT. PT TOLERATING VENT WITHOUT S/S OF RESP DISTRESS. PT WITHOUT S/S OF PAIN POR DISCOMFORT. PT BED IN LOWEST LOCKED POSITION WITH HANDRAILSX4 AND HOB ELEVATED. ALL DAY NURSE DUTIES ATTENDED TO AND PT ENDORSED TO NIGHT NURSE AT BEDSIDE FOR LAUREN.
[2017-12-30] MEDS ORDERED: IPRATROPIUM NEB FS 0.5 MG/2.5 ML AMPUL.NEB NEB PRN (19:30)
[2017-12-30] MEDS ORDERED: ALBUTEROL FS 2.5 MG/0.5 ML VIAL.NEB NEB PRN (19:30)
[2017-12-30 20:00] VITALS: BP 124/75
[2017-12-30] MEDS ORDERED: DEXTROSE 50%-WATER 50 ML DISP.SYRIN IV PRN (20:00)
[2017-12-30] MEDS: ALBUTEROL FS 2.5 MG/0.5 ML VIAL.NEB NEB SCH (20:10)
[2017-12-30] MEDS: IPRATROPIUM NEB FS 0.5 MG/2.5 ML AMPUL.NEB NEB SCH (20:10)
[2017-12-30] MEDS: GLUCERNA 1.2 1,000 ML BOTTLE GT SCH (21:07)
[2017-12-30] MEDS: IV D5W 1,000 ML IV PRN (21:07)
[2017-12-30] MEDS: PHENYTOIN SUSP UDC 100 MG/4 ML UDC GT SCH (21:09)
[2017-12-30] MEDS: PROPRANOLOL HCL 40 MG TABLET GT SCH (21:10)
[2017-12-30] MEDS: BACLOFEN (10 MG) 10 MG TABLET GT SCH (21:10)
[2017-12-30] MEDS: ACIDOPHILUS/BULGARICUS 1 EACH TAB.CHEW GT SCH (21:10)
[2017-12-30] MEDS: BLOOD SUGAR DIAGNOSTIC 1 EACH STRIP IN SCH (23:03)
[2017-12-30] MEDS: INSULIN GLARGINE, 100 UNIT/ML CARTRIDGE SQ SCH (23:05)
[2017-12-30] MEDS: INSULIN REGULAR, HUMAN 100 UNIT/ML 3 ML VIAL SQ PRN (23:06)
--- NOTE | 2017-12-30 23:13 | NUR ---
Received pt on ventilator support, pt stable no sob or distress noted at this time. alarms are on and audible, ventilator is plugged into red outlet, ambu bag at bedside. Addendum: 12/30/17 at 2314 by PRIYANKA DOMINGUEZ RT Amended: Links added.
[2017-12-31] VITALS: BP 100/53
[2017-12-31] MEDS: IPRATROPIUM NEB FS 0.5 MG/2.5 ML AMPUL.NEB NEB SCH ×4 (01:04→20:15)
[2017-12-31] MEDS: ALBUTEROL FS 2.5 MG/0.5 ML VIAL.NEB NEB SCH ×4 (01:04→20:15)
[2017-12-31 04:00] VITALS: BP 103/53
[2017-12-31] MEDS: BLOOD SUGAR DIAGNOSTIC 1 EACH STRIP IN SCH ×4 (05:37→23:51)
[2017-12-31 06:42] LABS: BASOPHILS % (AUTO) 0.2 % (0.0-2.0); EOSINOPHILS % (AUTO) 2.5 % (0.0-6.0); HEMATOCRIT 30 % (39-51); HEMOGLOBIN 9.4 g/dL (13.5-17.5); LYMPHOCYTES # (AUTO) 0.8 /CMM (0.8-4.8); LYMPHOCYTES % (AUTO) 9.9 % (20.0-44.0); MEAN CORPUSCULAR HEMOGLOBIN 30 PG (26.0-33.0); MEAN CORPUSCULAR HGB CONC 31 g/dl (31.0-36.0); MEAN CORPUSCULAR VOLUME 96 fL (80-96); MONOCYTES # (AUTO) 1.2 /CMM (0.1-1.30); MONOCYTES % (AUTO) 13.7 % (2.0-12.0); NEUTROPHILS # (AUTO) 6.3 /CMM (1.8-8.9); NEUTROPHILS % (AUTO) 73.7 % (43.0-81.0); PLATELET COUNT (AUTO) 360 /CMM (150-450); RDW COEFFICIENT OF VARIATION 19.3 (11.5-15.0); RED BLOOD CELL COUNT(AUTO) 3.14 MIL/uL (4.5-6.0); WHITE BLOOD COUNT (AUTO) 8.6 K/uL (4.3-11.0)
[2017-12-31 06:53] LABS: CALCIUM, SERUM 8.7 mg/dL (8.5-10.1); CREATININE 2.8 mg/dL (0.6-1.3); POTASSIUM 4.3 mmol/L (3.5-5.1)
--- NOTE | 2017-12-31 07:34 | NUR ---
INITIAL HUI RN NOTE RCVD PT WITH EYES CLOSED, ABLE TO OPEN EYES WHEN SUCTIONED, UNABLE TO FOLLOW COMMANDS OR RESPOND TO NAME WHEN CALLED. SHOWING NO S/O DISTRESS. SR ON TELE. TOLERATING ORDERED VENT SETTINGS. TUBE FEEDING INFUSING WELL, NO RESIDUAL OBTAINED UPON ASPIRATING. TUBE PLACEMENT CONFIRMED. RIGHT IV SITE C/D/I/PATENT. NO S/O INFILTRATION/PHLEBITIS OBSERVED. IVF INFUSING. WILL CONTINUE TO MONITOR PT FOR SAFETY AND COMFORT. BED IN LOW AND LOCKED POSITION.
[2017-12-31 08:00] VITALS: BP 115/71
[2017-12-31] MEDS: PHENYTOIN SUSP UDC 100 MG/4 ML UDC GT SCH ×2 (08:25→20:57)
[2017-12-31] MEDS: FERROUS SULFATE UDC 300 MG/5 ML UDC PO SCH ×3 (08:25→17:23)
[2017-12-31] MEDS: FUROSEMIDE 20 MG TABLET GT SCH (08:25)
[2017-12-31] MEDS: BACLOFEN (10 MG) 10 MG TABLET GT SCH ×2 (08:25→20:56)
[2017-12-31] MEDS: ASCORBIC ACID 500 MG TABLET GT SCH (08:25)
[2017-12-31] MEDS: PROPRANOLOL HCL 40 MG TABLET GT SCH ×2 (08:25→20:58)
[2017-12-31] MEDS: LEVETIRACETAM SOL (5 ML) 100 MG/ML UDC GT SCH ×2 (08:25→17:23)
[2017-12-31] MEDS: ACIDOPHILUS/BULGARICUS 1 EACH TAB.CHEW GT SCH ×2 (08:25→20:58)
[2017-12-31] MEDS: IV D5W 1,000 ML IV PRN (10:05)
--- NOTE | 2017-12-31 11:19 | NUR ---
SENIOR BUSINESS CONSULTANT NOTE PT'S FAMILY AT BEDSIDE THEY WERE UPDATED REGARDING PT'S CONDITION. QUESTIONS ANSWERED TO THEIR SATISFACTION.
[2017-12-31 12:00] VITALS: BP 102/59
[2017-12-31] MEDS: LEVOTHYROXINE SODIUM 75 MCG TABLET GT SCH (12:05)
[2017-12-31] MEDS: INSULIN REGULAR, HUMAN 100 UNIT/ML 3 ML VIAL SQ PRN ×3 (12:11→23:50)
[2017-12-31] MEDS: GLUCERNA 1.2 1,000 ML BOTTLE GT SCH (12:59)
[2017-12-31 16:00] VITALS: BP 106/57
--- NOTE | 2017-12-31 16:09 | NUR ---
CHANNELER INSOLE NOTE PT'S CARE TRANSFERRED TO JOEL SHAY FOR CONTINUITY OF CARE. PT REMAINS STABLE, NO S/O DISTRESS OBSERVED. BED IN LOW AND LOCKED POSITION.
--- NOTE | 2017-12-31 16:18 | NUR ---
RT RECD PT TRACH'D INTACT AND SECURED ON MECH VENT DIEGO ORDERED SETTINGS. VENT PLUGGED IN RED OUTLET ALARMS ON AND AUDIBLE, BAG AND MASK AT HOB TX GIVEN DIEGO WELL NO ADVERSE REACTION NOTED ATT NO RESP DISTRESS THROUGHOUT SHIFT WILL CONTINUE TO MONITOR
[2017-12-31] MEDS: POTASSIUM CHLORIDE 20 MEQ POWDER PACKET PO SCH (17:23)
--- NOTE | 2017-12-31 18:53 | NUR ---
DEVICE REPAIR TECHNICIAN END NOTES PATIENT RESTING IN BED, NO SIGNS OF DISTRESS, CLEAN AND REPOSITIONED, ALL NEEDS MET, WILL ENDORSE TO HEALTHCARE LIAISON FOR CONTINUITY OF CARE.
[2017-12-31] MEDS ORDERED: FEE PK DOSING 1 MIN EA MC ONE (18:57)
[2017-12-31] MEDS: VANCOMYCIN 0.75 GM in IV NS 0.9% 250 ML IV SCH (19:53)
[2017-12-31 20:00] VITALS: BP 107/50
--- NOTE | 2017-12-31 20:51 | NUR ---
Received pt on ventilator support, pt stable no sob or distress noted at this time, alarms are on and audible, ventilator is plugged into red outlet, ambu bag at bedside. Addendum: 12/31/17 at 2050 by PRIYANKA DOMINGUEZ RT Amended: Links added.
[2017-12-31] MEDS: PIPERACILLIN /TAZOBACTAM 2.25 G in IV D5W 50 ML IV SCH (20:58)
[2017-12-31] MEDS: HEPARIN SODIUM, PORCINE 5000 UNITS/1 ML VIAL SQ SCH (21:00)
[2017-12-31] MEDS: INSULIN GLARGINE, 100 UNIT/ML CARTRIDGE SQ SCH (21:58)
[2018-01-01] VITALS: BP 93/46
[2018-01-01] MEDS: ALBUTEROL FS 2.5 MG/0.5 ML VIAL.NEB NEB SCH ×4 (01:48→19:50)
[2018-01-01] MEDS: IPRATROPIUM NEB FS 0.5 MG/2.5 ML AMPUL.NEB NEB SCH ×4 (01:48→19:50)
[2018-01-01] MEDS: PIPERACILLIN /TAZOBACTAM 2.25 G in IV D5W 50 ML IV SCH ×4 (02:52→21:28)
[2018-01-01 04:00] VITALS: BP 92/46
[2018-01-01] MEDS: BLOOD SUGAR DIAGNOSTIC 1 EACH STRIP IN SCH ×3 (06:03→17:35)
[2018-01-01] MEDS: GLUCERNA 1.2 1,000 ML BOTTLE GT SCH ×2 (06:04→17:28)
[2018-01-01 06:38] LABS: BASOPHILS % (AUTO) 0.5 % (0.0-2.0); EOSINOPHILS % (AUTO) 4.1 % (0.0-6.0); HEMATOCRIT 26 % (39-51); HEMOGLOBIN 8.1 g/dL (13.5-17.5); LYMPHOCYTES # (AUTO) 1.1 /CMM (0.8-4.8); LYMPHOCYTES % (AUTO) 20.4 % (20.0-44.0); MEAN CORPUSCULAR HEMOGLOBIN 30 PG (26.0-33.0); MEAN CORPUSCULAR HGB CONC 32 g/dl (31.0-36.0); MEAN CORPUSCULAR VOLUME 96 fL (80-96); MONOCYTES # (AUTO) 0.4 /CMM (0.1-1.30); MONOCYTES % (AUTO) 8.6 % (2.0-12.0); NEUTROPHILS # (AUTO) 3.5 /CMM (1.8-8.9); NEUTROPHILS % (AUTO) 66.4 % (43.0-81.0); PLATELET COUNT (AUTO) 313 /CMM (150-450); RDW COEFFICIENT OF VARIATION 19.8 (11.5-15.0); RED BLOOD CELL COUNT(AUTO) 2.69 MIL/uL (4.5-6.0); WHITE BLOOD COUNT (AUTO) 5.3 K/uL (4.3-11.0)
[2018-01-01 07:09] LABS: CALCIUM, SERUM 8.8 mg/dL (8.5-10.1); CREATININE 2.9 mg/dL (0.6-1.3); MAGNESIUM 2.7 mg/dL (1.8-2.4); PHOSPHORUS 4.5 mg/dL (2.5-4.9); POTASSIUM 4.1 mmol/L (3.5-5.1)
[2018-01-01 08:00] VITALS: BP 120/67
[2018-01-01] MEDS: FERROUS SULFATE UDC 300 MG/5 ML UDC PO SCH ×3 (08:26→17:54)
[2018-01-01] MEDS: PHENYTOIN SUSP UDC 100 MG/4 ML UDC GT SCH ×2 (08:28→21:27)
[2018-01-01] MEDS: LEVETIRACETAM SOL (5 ML) 100 MG/ML UDC GT SCH ×2 (08:31→17:54)
[2018-01-01] MEDS: PROPRANOLOL HCL 40 MG TABLET GT SCH ×2 (08:31→21:28)
[2018-01-01] MEDS: FUROSEMIDE 20 MG TABLET GT SCH (08:32)
[2018-01-01] MEDS: ACIDOPHILUS/BULGARICUS 1 EACH TAB.CHEW GT SCH ×2 (08:32→21:27)
[2018-01-01] MEDS: ASCORBIC ACID 500 MG TABLET GT SCH (08:33)
[2018-01-01] MEDS: BACLOFEN (10 MG) 10 MG TABLET GT SCH ×2 (08:33→21:27)
[2018-01-01] MEDS: HEPARIN SODIUM, PORCINE 5000 UNITS/1 ML VIAL SQ SCH ×2 (08:37→21:30)
[2018-01-01 12:00] VITALS: BP 90/42
[2018-01-01] MEDS: LEVOTHYROXINE SODIUM 75 MCG TABLET GT SCH (14:13)
[2018-01-01] MEDS: INSULIN REGULAR, HUMAN 100 UNIT/ML 3 ML VIAL SQ PRN ×2 (14:29→17:33)
[2018-01-01 16:00] VITALS: BP 105/55
[2018-01-01] MEDS: POTASSIUM CHLORIDE 20 MEQ POWDER PACKET PO SCH (17:20)
--- NOTE | 2018-01-01 19:20 | NUR ---
TRIM AND BURR OPERATOR NOTE PATIENT IS OBTUNDED, RESTING COMFORTABLY WITH HOB ELEVATED, TRACH TO MECHANICAL VENT ON SETTINGS ORDERED, ON TELE SR, RIGHT FOREARM #22G SL, PATENT FLUSHING WELL, SITE CDI, G TUBE WITH GLUCERNA 1.2 AT 80ML/HR TOLERATING WELL, SKIN KEPT CLEAN AND DRY, SAFETY MAINTAINED AT ALL TIMES, CALL LIGHT WITHIN REACH, BED IN LOW LOCKED POSITION, WILL CONTINUE TO MONITOR FOR ANY CHANGES IN CONDITION.
[2018-01-01] MEDS: VANCOMYCIN 0.75 GM in IV NS 0.9% 250 ML IV SCH (19:47)
--- NOTE | 2018-01-01 19:51 | NUR ---
PT RCVD. WITH A PORTEX 9 TRACH ON THE VENT WITH NOTED SETTINGS. VENT ALARMS ARE SET AND AUDIBLE WITH AMBU BAG @ BEDSIDE. LABOR CONTRACTOR CUFF PRESSURE NOTED. PT TRACH PATENT AND SECURED. VENT IS PLUGGED INTO RED OUTLET. BREATHING TX GIVEN PER MD'S ORDERED,NO ADVERSE REACTION NOTED. SUCTIONED COPIOUS AMOUNT OF YELLOW THICK SECRETIONS. NO RESPIRATORY DISTRESS NOTED AT THIS TIME, WILL CONTINUE TO MONITOR.
[2018-01-01 20:00] VITALS: BP 107/58
[2018-01-01] MEDS: INSULIN GLARGINE, 100 UNIT/ML CARTRIDGE SQ SCH (21:46)
[2018-01-01] MEDS: BACITRACIN/POLYMYXIN B 15 GM TUBE TP SCH (23:00)
[2018-01-02] VITALS: BP 107/58
[2018-01-02] MEDS: BLOOD SUGAR DIAGNOSTIC 1 EACH STRIP IN SCH ×5 (00:09→23:58)
[2018-01-02] MEDS: INSULIN REGULAR, HUMAN 100 UNIT/ML 3 ML VIAL SQ PRN ×3 (00:13→17:35)
[2018-01-02] MEDS: ALBUTEROL FS 2.5 MG/0.5 ML VIAL.NEB NEB SCH ×4 (00:45→19:27)
[2018-01-02] MEDS: IPRATROPIUM NEB FS 0.5 MG/2.5 ML AMPUL.NEB NEB SCH ×4 (00:46→19:27)
[2018-01-02] MEDS ORDERED: LEVOFLOXACIN (250MG) 250 MG TABLET PO ONE (01:00)
[2018-01-02] MEDS: IV D5W 1,000 ML IV PRN ×2 (01:14→13:41)
[2018-01-02 04:00] VITALS: BP 99/54
[2018-01-02] MEDS: GLUCERNA 1.2 1,000 ML BOTTLE GT SCH (05:06)
[2018-01-02 06:35] LABS: BASOPHILS % (AUTO) 0.4 % (0.0-2.0); EOSINOPHILS % (AUTO) 2.9 % (0.0-6.0); HEMATOCRIT 25 % (39-51); HEMOGLOBIN 7.7 g/dL (13.5-17.5); LYMPHOCYTES # (AUTO) 1.2 /CMM (0.8-4.8); LYMPHOCYTES % (AUTO) 16.8 % (20.0-44.0); MEAN CORPUSCULAR HEMOGLOBIN 29 PG (26.0-33.0); MEAN CORPUSCULAR HGB CONC 30 g/dl (31.0-36.0); MEAN CORPUSCULAR VOLUME 96 fL (80-96); MONOCYTES # (AUTO) 0.6 /CMM (0.1-1.30); MONOCYTES % (AUTO) 8.7 % (2.0-12.0); NEUTROPHILS % (AUTO) 71.2 % (43.0-81.0); PLATELET COUNT (AUTO) 346 /CMM (150-450); RDW COEFFICIENT OF VARIATION 20.1 (11.5-15.0); RED BLOOD CELL COUNT(AUTO) 2.63 MIL/uL (4.5-6.0)
--- NOTE | 2018-01-02 07:13 | NUR ---
TAPE WEAVER OPENING NOTE RECEIVED PATIENT IN STABLE CONDITION, ON VENTILATOR, SINUS RHYTHM ON CHARTING CLERK. NO RESPIRATORY DISTRESS NOTED. RIGHT FOREARM IV SITE INTACT WITH SALINE LOCK. RIGHT HAND IV SITE INFUSING D5W AT 80ML/HR. BED LOW AND LOCKED, CALL LIGHT WITHIN REACH, NO SIGNS OF DISCOMFORT, WILL CONTINUE TO MONITOR.
[2018-01-02 07:24] LABS: CALCIUM, SERUM 8.4 mg/dL (8.5-10.1); CREATININE 2.7 mg/dL (0.6-1.3); MAGNESIUM 2.7 mg/dL (1.8-2.4); PHOSPHORUS 3.6 mg/dL (2.5-4.9); POTASSIUM 4.5 mmol/L (3.5-5.1)
[2018-01-02 08:00] VITALS: BP 104/60
[2018-01-02] MEDS: PHENYTOIN SUSP UDC 100 MG/4 ML UDC GT SCH ×2 (09:42→22:29)
[2018-01-02] MEDS: ACIDOPHILUS/BULGARICUS 1 EACH TAB.CHEW GT SCH ×2 (09:43→22:30)
[2018-01-02] MEDS: FUROSEMIDE 20 MG TABLET GT SCH (09:43)
[2018-01-02] MEDS: PROPRANOLOL HCL 40 MG TABLET GT SCH ×2 (09:43→22:30)
[2018-01-02] MEDS: LEVETIRACETAM SOL (5 ML) 100 MG/ML UDC GT SCH ×2 (09:43→17:24)
[2018-01-02] MEDS: FERROUS SULFATE UDC 300 MG/5 ML UDC PO SCH ×3 (09:43→17:24)
[2018-01-02] MEDS: BACLOFEN (10 MG) 10 MG TABLET GT SCH ×2 (09:44→22:34)
[2018-01-02] MEDS: ASCORBIC ACID 500 MG TABLET GT SCH (09:44)
[2018-01-02] MEDS: BACITRACIN/POLYMYXIN B 15 GM TUBE TP SCH ×2 (09:44→17:24)
[2018-01-02] MEDS: HEPARIN SODIUM, PORCINE 5000 UNITS/1 ML VIAL SQ SCH ×2 (09:45→22:31)
[2018-01-02] MEDS: DOXYCYCLINE HYCLATE (100 MG) 100 MG TABLET PO SCH ×2 (09:46→22:34)
[2018-01-02] MEDS: LEVOTHYROXINE SODIUM 75 MCG TABLET GT SCH (11:54)
[2018-01-02 12:00] VITALS: BP 93/51
[2018-01-02 16:00] VITALS: BP 96/50
[2018-01-02] MEDS: POTASSIUM CHLORIDE 20 MEQ POWDER PACKET PO SCH (17:24)
--- NOTE | 2018-01-02 19:47 | NUR ---
LICENSED MIDWIFE CLOSING NOTE PATIENT RESTING IN BED IN STABLE CONDITION, NO SIGNS OF PAIN OR RESPIRATORY DISTRESS. D5W INFUSING AT 80ML/HR. GLUCERNA INFUSING AT 80ML/HR. HEAD OF BED ELEVATED, BED LOW AND LOCKED, WILL ENDORSE TO NEXT SHIFT.
[2018-01-02 20:00] VITALS: BP 97/48
--- NOTE | 2018-01-02 20:00 | NUR ---
RN INITIAL NOTE RECEIVED PATIENT IN STABLE CONDITION, ON VENTILATOR, SINUS RHYTHM ON CEMETERY VAULT INSTALLER. NO RESPIRATORY DISTRESS NOTED. RIGHT FOREARM IV SITE INTACT S/L. RIGHT HAND IV SITE INFUSING D5W AT 80ML/HR. J TUBE INTACT, FEEDING HELD BEFORE/ AFTER GIVING MEDS ORDERED. BED LOW AND LOCKED, CALL LIGHT WITHIN REACH, NO SIGNS OF DISCOMFORT, WILL CONTINUE TO MONITOR.
--- NOTE | 2018-01-02 21:22 | NUR ---
RT NOTE PATIENT WAS RECEIVED ON CONTINUOUS VENT SUPPORT ON NOTED VENT SETTINGS.HHN TREATMENT GIVEN, TOLERATED WELL.B/S RHONCHI SUCTIONED WITH A MODERATE AMOUNT OT THIN PALE YELLOWISH SECRETIONS . AMBUBAG AND SPARE TRACH AT BEDSIDE. VENT PLUGGED TO RED OUTLET.PATIENT STABLE AT THIS TIME, WILL CONTINUE TO MONITOR. Addendum: 01/02/18 at 2126 by DARCI SALAMANCA RT Amended: Links added.
[2018-01-02] MEDS: LEVOFLOXACIN (250MG) 250 MG TABLET PO SCH (22:30)
[2018-01-02] MEDS: INSULIN GLARGINE, 100 UNIT/ML CARTRIDGE SQ SCH (22:56)
[2018-01-03] VITALS: BP 93/57
[2018-01-03] MEDS: IPRATROPIUM NEB FS 0.5 MG/2.5 ML AMPUL.NEB NEB SCH ×4 (01:32→19:05)
[2018-01-03] MEDS: ALBUTEROL FS 2.5 MG/0.5 ML VIAL.NEB NEB SCH ×4 (01:32→19:05)
[2018-01-03 04:00] VITALS: BP 104/47
[2018-01-03] MEDS: GLUCERNA 1.2 1,000 ML BOTTLE GT SCH (05:09)
[2018-01-03] MEDS: BLOOD SUGAR DIAGNOSTIC 1 EACH STRIP IN SCH ×4 (05:10→23:38)
[2018-01-03] MEDS: IV D5W 1,000 ML IV PRN (05:10)
[2018-01-03 06:21] LABS: BASOPHILS % (AUTO) 0.4 % (0.0-2.0); EOSINOPHILS % (AUTO) 2.4 % (0.0-6.0); HEMATOCRIT 25 % (39-51); HEMOGLOBIN 7.8 g/dL (13.5-17.5); LYMPHOCYTES # (AUTO) 1.5 /CMM (0.8-4.8); LYMPHOCYTES % (AUTO) 21.4 % (20.0-44.0); MEAN CORPUSCULAR HEMOGLOBIN 30 PG (26.0-33.0); MEAN CORPUSCULAR HGB CONC 31 g/dl (31.0-36.0); MEAN CORPUSCULAR VOLUME 96 fL (80-96); MONOCYTES # (AUTO) 0.9 /CMM (0.1-1.30); MONOCYTES % (AUTO) 12.1 % (2.0-12.0); NEUTROPHILS # (AUTO) 4.5 /CMM (1.8-8.9); NEUTROPHILS % (AUTO) 63.7 % (43.0-81.0); PLATELET COUNT (AUTO) 340 /CMM (150-450); RDW COEFFICIENT OF VARIATION 20.4 (11.5-15.0); RED BLOOD CELL COUNT(AUTO) 2.62 MIL/uL (4.5-6.0); WHITE BLOOD COUNT (AUTO) 7.1 K/uL (4.3-11.0)
[2018-01-03 06:32] LABS: CALCIUM, SERUM 8.4 mg/dL (8.5-10.1); CREATININE 2.8 mg/dL (0.6-1.3); MAGNESIUM 2.6 mg/dL (1.8-2.4); PHOSPHORUS 3.9 mg/dL (2.5-4.9); POTASSIUM 4.1 mmol/L (3.5-5.1)
--- NOTE | 2018-01-03 07:15 | NUR ---
FLOORWORKER DISTRIBUTOR OPENING NOTE RECEIVED PATIENT IN STABLE CONDITION, ON TRACH/VENT, NO SIGNS OR SYMPTOMS OF PAIN OR RESPIRATORY DISTRESS. SINUS RHYTHM ON EQUIPMENT SUPERINTENDENT, HEART RATE IN THE 70S. RIGHT HAND IV SITE INFUSING D5W AT 80ML/HR. HEAD OF BED ELEVATED, BED LOW AND LOCKED, WILL CONTINUE TO MONITOR.
[2018-01-03 07:26] LABS: IRON, SERUM 54 ug/dl (50-175); TOTAL IRON BINDING CAPACITY 206 ug/dl (250-450)
--- NOTE | 2018-01-03 07:37 | NUR ---
RN CLOSING NOTE PATIENT RESTING IN BED IN STABLE CONDITION, NO SIGNS OF PAIN OR RESPIRATORY DISTRESS. D5W INFUSING AT 80ML/HR. GLUCERNA INFUSING AT 80ML/HR. HEAD OF BED ELEVATED, BED LOW AND LOCKED, WILL ENDORSE TO AM SHIFT.
[2018-01-03 08:00] VITALS: BP 111/65
[2018-01-03] MEDS: PROPRANOLOL HCL 40 MG TABLET GT SCH ×2 (09:00→21:04)
[2018-01-03] MEDS: FERROUS SULFATE UDC 300 MG/5 ML UDC PO SCH ×3 (09:09→17:29)
[2018-01-03] MEDS: PHENYTOIN SUSP UDC 100 MG/4 ML UDC GT SCH ×2 (09:09→21:03)
[2018-01-03] MEDS: FUROSEMIDE 20 MG TABLET GT SCH (09:10)
[2018-01-03] MEDS: HEPARIN SODIUM, PORCINE 5000 UNITS/1 ML VIAL SQ SCH ×2 (09:10→21:05)
[2018-01-03] MEDS: BACLOFEN (10 MG) 10 MG TABLET GT SCH ×2 (09:10→21:04)
[2018-01-03] MEDS: ACIDOPHILUS/BULGARICUS 1 EACH TAB.CHEW GT SCH ×2 (09:11→21:05)
[2018-01-03] MEDS: DOXYCYCLINE HYCLATE (100 MG) 100 MG TABLET PO SCH ×2 (09:11→21:05)
[2018-01-03] MEDS: LEVOFLOXACIN (250MG) 250 MG TABLET PO SCH (09:11)
[2018-01-03] MEDS: ASCORBIC ACID 500 MG TABLET GT SCH (09:11)
[2018-01-03] MEDS: BACITRACIN/POLYMYXIN B 15 GM TUBE TP SCH ×2 (09:12→17:35)
[2018-01-03] MEDS: LEVETIRACETAM SOL (5 ML) 100 MG/ML UDC GT SCH ×2 (09:19→17:29)
[2018-01-03 12:00] VITALS: BP 101/64
[2018-01-03] MEDS: LEVOTHYROXINE SODIUM 75 MCG TABLET GT SCH (12:14)
[2018-01-03 16:00] VITALS: BP 97/60
[2018-01-03] MEDS ORDERED: Z GUARD REMEDY 2 OZ OINT TP PRN (17:00)
[2018-01-03] MEDS: POTASSIUM CHLORIDE 20 MEQ POWDER PACKET PO SCH (17:29)
--- NOTE | 2018-01-03 19:00 | NUR ---
MATERIAL CONTROL ANALYST CLOSING NOTE PATIENT SLEEPING AT THIS TIME, NO SIGNS OR SYMPTOMS OF PAIN OR RESPIRATORY DISTRESS, SINUS RHYTHM ON GREEN CHAIN OFF BEARER, HEART RATE IN THE SIXTIES. SUCTIONED ORAL AND TRACHEAL SECRETIONS NEEDED, CLEANED AND CHANGED FOR COMFORT. J TUBE SITE ENFORCED WITH STOMAHESIVE. G TUBE FEEDING INFUSING AT 80ML/HR. BED LOW AND LOCKED, HEAD OF BED ELEVATED. WILL ENDORSE TO ONCOMING SHIFT.
--- NOTE | 2018-01-03 19:45 | NUR ---
NURSE'S ASSISTANT TELE NOTES, PATIENT SLEEPING AT THIS TIME, ON MECHANICAL VENTILATOR SUPPORT, TOLERATED SETTINGS WELL, NO SIGNS OR SYMPTOMS OF PAIN, SOB, OR RESPIRATORY DISTRESS, SINUS RHYTHM ON PAYMENT REP, ORAL SUCTIONED PROVIDED AT THIS TIME, J TUBE SITE ENFORCED WITH STOMAHESIVE. GTF INFUSING AT 80ML/HR. BED LOW AND LOCKED, HEAD OF BED ELEVATED AT ALL TIMES OF ASPIRATION PRECAUTIONS, RFA AND R HAND PIV LINES INTACT AND PATENT, NO IVF AT THIS TIME, DRY AND CLEAN AND WELL REPOSITED AT THIS TIME, ALL NEEDS PROVIDED, WILL CONTINUE TO MONITOR CLOSELY.
[2018-01-03 20:00] VITALS: BP 104/57
--- NOTE | 2018-01-03 20:05 | NUR ---
PT RECEIVED ON [facility] VENT WITH THE FOLLOWING SETTINGS: AC 16, 500, 35% FIO2, PEEP 5. NO RESP DISTRESS NOTED AT THIS TIME. SX'D SMALL THIN WHITE SECRETIONS. NO ADVERSE REACTIONS TO BREATHING TX. VENT IS PLUGGED INTO RED OUTLET. VENT ALARMS ARE ON AND AUDIBLE AND AMBU BAG IS AT BEDSIDE. WILL CONT TO MONITOR. Addendum: 01/03/18 at 2007 by HENRI SANDHU RT Amended: Links added.
[2018-01-03] MEDS: INSULIN GLARGINE, 100 UNIT/ML CARTRIDGE SQ SCH (21:15)
[2018-01-03] MEDS: INSULIN REGULAR, HUMAN 100 UNIT/ML 3 ML VIAL SQ PRN (23:39)
[2018-01-04] VITALS: BP 105/60
[2018-01-04] MEDS: IPRATROPIUM NEB FS 0.5 MG/2.5 ML AMPUL.NEB NEB SCH ×4 (00:35→20:03)
[2018-01-04] MEDS: ALBUTEROL FS 2.5 MG/0.5 ML VIAL.NEB NEB SCH ×4 (00:35→20:03)
[2018-01-04 04:00] VITALS: BP 123/66
[2018-01-04] MEDS: BLOOD SUGAR DIAGNOSTIC 1 EACH STRIP IN SCH ×3 (06:22→17:54)
[2018-01-04] MEDS: INSULIN REGULAR, HUMAN 100 UNIT/ML 3 ML VIAL SQ PRN ×3 (06:23→23:41)
[2018-01-04 06:41] LABS: BASOPHILS % (AUTO) 0.3 % (0.0-2.0); EOSINOPHILS % (AUTO) 2.6 % (0.0-6.0); HEMATOCRIT 26 % (39-51); HEMOGLOBIN 8.4 g/dL (13.5-17.5); LYMPHOCYTES # (AUTO) 1.2 /CMM (0.8-4.8); LYMPHOCYTES % (AUTO) 15.5 % (20.0-44.0); MEAN CORPUSCULAR HEMOGLOBIN 31 PG (26.0-33.0); MEAN CORPUSCULAR HGB CONC 33 g/dl (31.0-36.0); MEAN CORPUSCULAR VOLUME 95 fL (80-96); MONOCYTES # (AUTO) 0.6 /CMM (0.1-1.30); MONOCYTES % (AUTO) 8.5 % (2.0-12.0); NEUTROPHILS # (AUTO) 5.5 /CMM (1.8-8.9); NEUTROPHILS % (AUTO) 73.1 % (43.0-81.0); PLATELET COUNT (AUTO) 330 /CMM (150-450); WHITE BLOOD COUNT (AUTO) 7.5 K/uL (4.3-11.0)
[2018-01-04 06:43] LABS: CALCIUM, SERUM 8.6 mg/dL (8.5-10.1); CREATININE 2.2 mg/dL (0.6-1.3); MAGNESIUM 2.3 mg/dL (1.8-2.4); PHOSPHORUS 4.2 mg/dL (2.5-4.9); POTASSIUM 4.6 mmol/L (3.5-5.1)
--- NOTE | 2018-01-04 06:55 | NUR ---
TOXICOLOGY TEACHER CLOSING NOTES, PATIENT SLEEPING AT THIS TIME, ON MECHANICAL VENTILATOR SUPPORT, TOLERATED SETTINGS WELL, NO SIGNS OR SYMPTOMS OF PAIN, SOB, OR RESPIRATORY DISTRESS, SINUS RHYTHM ON GENERAL MATCHER, NOTED WITH STILL WITH SOME LEAKAGE FROM THE GT SITE, REINFORCE WITH STOMAHESIVE ORDERED, AND CHANGED DRESSING, ORAL SUCTIONED PROVIDED NEEDED, GTF ON HOLD AT THIS TIME SINCE IS 18HRS ONLY, BED LOW AND LOCKED, HEAD OF BED ELEVATED AT ALL TIMES OF ASPIRATION PRECAUTIONS, RFA AND R HAND PIV LINES INTACT AND PATENT, DRY AND CLEAN AND WELL REPOSITED AT THIS TIME, REMANDED STABLE DURING THE NIGHT, ALL NEEDS PROVIDED, WILL ENDORSE CONTINUITY OF CARE TO ONCOMING NURSE.
--- NOTE | 2018-01-04 07:00 | NUR ---
RT RECEIVED PT TRACH VENT DEPENDENT WITH NOTED SETTINGS. COMPUTER OPERATIONS SUPERVISOR DONE AND TRACH IS SECURE. AMBU BAG NOTED HOB. VENT ALARMS CHECKED AND AUDIBLE. VENT PLUGGED IN RED OUTLET. PT ON CONTINUOUS PULSE OX, SPO2 AND HR WITHIN NORMAL LIMITS. B/S BILATERAL RHONCHI. SX TRACH AND ORAL WITH MOD THN WHITE/CLEAR SECRETIONS. PT TOLERATING SETTINGS WELL, NO SOB OR RESP DISTRESS NOTED. BREATHING TX GIVEN. WILL CONTINUE TO MONITOR T/O SHIFT.
[2018-01-04 08:00] VITALS: BP 103/61
[2018-01-04] MEDS: BACLOFEN (10 MG) 10 MG TABLET GT SCH ×2 (08:57→20:01)
[2018-01-04] MEDS: PHENYTOIN SUSP UDC 100 MG/4 ML UDC GT SCH ×2 (08:57→20:34)
[2018-01-04] MEDS: LEVETIRACETAM SOL (5 ML) 100 MG/ML UDC GT SCH ×2 (08:58→17:53)
[2018-01-04] MEDS: FERROUS SULFATE UDC 300 MG/5 ML UDC PO SCH ×3 (08:58→17:53)
[2018-01-04] MEDS: PROPRANOLOL HCL 40 MG TABLET GT SCH ×2 (08:58→20:01)
[2018-01-04] MEDS: ASCORBIC ACID 500 MG TABLET GT SCH (08:58)
[2018-01-04] MEDS: ACIDOPHILUS/BULGARICUS 1 EACH TAB.CHEW GT SCH ×2 (08:58→20:00)
[2018-01-04] MEDS: FUROSEMIDE 20 MG TABLET GT SCH (08:58)
[2018-01-04] MEDS: BACITRACIN/POLYMYXIN B 15 GM TUBE TP SCH ×2 (08:59→18:15)
[2018-01-04] MEDS: HEPARIN SODIUM, PORCINE 5000 UNITS/1 ML VIAL SQ SCH ×2 (09:17→20:09)
--- NOTE | 2018-01-04 09:46 | NUR ---
SALES OPERATIONS ASSOCIATE OPENING NOTE RECEIVED REPORT FROM PM NURSE.PATIENT IS OBTUNDED,ON TRACH/VENT, NO SIGNS OR SYMPTOMS OF PAIN OR RESPIRATORY DISTRESS. SINUS RHYTHM 64 ON PATIENT TRANSPORTER. RIGHT HAND IV . ON GTF GLUCERNA @ 80CC/HR.HEAD OF BED ELEVATED, BED LOW AND LOCKED, CALL LIGHT IN REACH.SRX3.WILL CONTINUE TO MONITOR.
[2018-01-04 12:00] VITALS: BP 109/66
[2018-01-04] MEDS: LEVOTHYROXINE SODIUM 75 MCG TABLET GT SCH (12:16)
[2018-01-04 16:00] VITALS: BP 99/53
[2018-01-04] MEDS: POTASSIUM CHLORIDE 20 MEQ POWDER PACKET PO SCH (17:54)
[2018-01-04] MEDS: GLUCERNA 1.2 1,000 ML BOTTLE GT SCH ×2 (19:25→19:26)
--- NOTE | 2018-01-04 19:30 | NUR ---
PHOTO TECHNICIAN TELE NOTES, PATIENT WITH EYES OPEN AT THIS TIME, ON MECHANICAL VENTILATOR SUPPORT, TOLERATED SETTINGS WELL, NO SIGNS OR SYMPTOMS OF PAIN, SOB, OR RESPIRATORY DISTRESS, SINUS RHYTHM ON COPYRIGHT EXPERT, SUCTIONING PROVIDED AT THIS TIME FOR REMOVAL OF SECRETIONS, GTF ON OLD AT THIS TIME, ORDERED FOR DILANTIN MEDICATION, BED LOW AND LOCKED, HEAD OF BED ELEVATED AT ALL TIMES OF ASPIRATION PRECAUTIONS, RFA AND R HAND PIV LINES INTACT AND PATENT, NO IVF AT THIS TIME, DRY AND CLEAN AND WELL REPOSITED AT THIS TIME, ALL NEEDS PROVIDED, WILL CONTINUE TO MONITOR CLOSELY
[2018-01-04 20:00] VITALS: BP 102/57
--- NOTE | 2018-01-04 20:04 | NUR ---
PT ON VENT A/C MODE PT HAS A PORTEX 9 TRACH WHICH IS SECURE PATIENT AND INTACT. PT BREATH SOUNDS COURSE SX PRN RETURNING SMALL/MODERATE PALE YELLOW SECRETIONS. HHN TX MD ORDERED. TX DIEGO WELL. VENT ALARMS CHECKED FOUND TO BE FUNCTIONAL, AUDIBLE, AND WITHIN RAGE. VENT PLUGGED INTO RED OUTLET, BVM AT BEDSIDE.
[2018-01-04] MEDS: INSULIN GLARGINE, 100 UNIT/ML CARTRIDGE SQ SCH (21:24)
[2018-01-05] VITALS: BP 101/60
[2018-01-05 00:08] VITALS: BP 101/60
[2018-01-05] MEDS: BLOOD SUGAR DIAGNOSTIC 1 EACH STRIP IN SCH ×4 (01:23→17:37)
[2018-01-05] MEDS: IPRATROPIUM NEB FS 0.5 MG/2.5 ML AMPUL.NEB NEB SCH ×4 (01:33→19:30)
[2018-01-05] MEDS: ALBUTEROL FS 2.5 MG/0.5 ML VIAL.NEB NEB SCH ×4 (01:33→19:30)
[2018-01-05 04:00] VITALS: BP 98/62
[2018-01-05 06:21] LABS: BASOPHILS % (AUTO) 0.3 % (0.0-2.0); EOSINOPHILS % (AUTO) 3.3 % (0.0-6.0); HEMATOCRIT 26 % (39-51); HEMOGLOBIN 8.3 g/dL (13.5-17.5); LYMPHOCYTES % (AUTO) 12.3 % (20.0-44.0); MEAN CORPUSCULAR HEMOGLOBIN 31 PG (26.0-33.0); MEAN CORPUSCULAR HGB CONC 33 g/dl (31.0-36.0); MEAN CORPUSCULAR VOLUME 95 fL (80-96); MONOCYTES # (AUTO) 0.6 /CMM (0.1-1.30); MONOCYTES % (AUTO) 7.6 % (2.0-12.0); NEUTROPHILS # (AUTO) 6.2 /CMM (1.8-8.9); NEUTROPHILS % (AUTO) 76.5 % (43.0-81.0); PLATELET COUNT (AUTO) 340 /CMM (150-450); RDW COEFFICIENT OF VARIATION 19.7 (11.5-15.0); RED BLOOD CELL COUNT(AUTO) 2.69 MIL/uL (4.5-6.0); WHITE BLOOD COUNT (AUTO) 8.1 K/uL (4.3-11.0)
[2018-01-05 06:54] LABS: CALCIUM, SERUM 8.7 mg/dL (8.5-10.1); CREATININE 2.3 mg/dL (0.6-1.3); MAGNESIUM 2.5 mg/dL (1.8-2.4); PHOSPHORUS 4.5 mg/dL (2.5-4.9); POTASSIUM 4.7 mmol/L (3.5-5.1)
--- NOTE | 2018-01-05 07:00 | NUR ---
SALON RECEPTIONIST TELE NOTES, PATIENT WITH SLEEPING AT THIS TIME, ON MECHANICAL VENTILATOR SUPPORT, TOLERATED SETTINGS WELL, NO SIGNS OR SYMPTOMS OF PAIN, SOB, OR RESPIRATORY DISTRESS, SINUS RHYTHM ON FISH HATCHERY INSPECTOR, SUCTIONING PROVIDED AT THIS TIME FOR REMOVAL OF SECRETIONS, GTF ON OLD AT THIS TIME, SINCE IS 18HRS ONLY, BED LOW AND LOCKED, HEAD OF BED ELEVATED AT ALL TIMES OF ASPIRATION PRECAUTIONS, RFA AND R HAND PIV LINES INTACT AND PATENT, NO IVF AT THIS TIME, DRY AND CLEAN AND WELL REPOSITED AT THIS TIME, ALL NEEDS PROVIDED, NO CHANGE IN CONDITION THROUGHOUT THE NIGHT, WILL ENDORSE CONTINUITY OF CARE TO INCOMING NURSE.
[2018-01-05 08:00] VITALS: BP 126/64
--- NOTE | 2018-01-05 08:00 | NUR ---
EVAPORATOR REPAIRER OPENING NOTE RECEIVED PATIENT OBTUNDED,ON TRACH/VENT AC OF 16, TV550, FIO2 35, PPEP OF 5, NO SIGNS OR RESPIRATORY DISTRESS, NO SIGN OF PAIN, SINUS RHYTHM ON TELE HR AT 81. RIGHT HAND IV .GT SITE WITH REDNESS, ON GTF GLUCERNA @ 80CC/HR. HEAD OF BED ELEVATED, BED LOW AND LOCKED, CALL LIGHT IN REACH.SRX3.WILL CONTINUE TO MONITOR.
[2018-01-05] MEDS: FERROUS SULFATE UDC 300 MG/5 ML UDC PO SCH ×3 (08:11→17:37)
[2018-01-05] MEDS: PHENYTOIN SUSP UDC 100 MG/4 ML UDC GT SCH (08:12)
[2018-01-05] MEDS: HEPARIN SODIUM, PORCINE 5000 UNITS/1 ML VIAL SQ SCH (08:13)
[2018-01-05] MEDS: LEVETIRACETAM SOL (5 ML) 100 MG/ML UDC GT SCH ×2 (08:14→17:37)
[2018-01-05] MEDS: ACIDOPHILUS/BULGARICUS 1 EACH TAB.CHEW GT SCH (08:14)
[2018-01-05] MEDS: FUROSEMIDE 20 MG TABLET GT SCH (08:15)
[2018-01-05] MEDS: BACLOFEN (10 MG) 10 MG TABLET GT SCH (08:15)
[2018-01-05] MEDS: ASCORBIC ACID 500 MG TABLET GT SCH (08:15)
[2018-01-05] MEDS: PROPRANOLOL HCL 40 MG TABLET GT SCH (08:16)
--- NOTE | 2018-01-05 09:00 | NUR ---
T/D NURSE NOTES SEEN AND EXAMINED BY DR. NEWSOME. NO NEW ORDER AT THIS TIME
[2018-01-05] MEDS: BACITRACIN/POLYMYXIN B 15 GM TUBE TP SCH ×2 (09:41→17:37)
--- NOTE | 2018-01-05 11:38 | NUR ---
RT RECD PT TRACHED INTACT AND SECURED ON MECH VENT DIEGO ORDERED SETTINGS, ALARMS ON AND AUDIBLE VENT PLUGGED IN RED OUTLET TX GIVING NO ADVERSE REACTION NOTED ATT BAG AND MASK AT HOB SX THICK YELLOW MODERATE AMOUNT OF SECRETIONS. NO RESP DISTRESS WILL CONTINUE TO MONITOR
[2018-01-05] MEDS: LEVOTHYROXINE SODIUM 75 MCG TABLET GT SCH (11:51)
[2018-01-05 11:59] VITALS: BP 94/54
--- NOTE | 2018-01-05 12:40 | NUR ---
SERVICE STATION HELPER NOTE: CALLED AND SPOKE WITH CLYDE MONTGOMERY (BROTHER) AND MADE HIM AWARE THAT THE PATIENT IS GETTING DISCHARGE BACK TO [facility]. CLYDE WAS INFORMED THAT THE EXPECTED TIME OF PICK-UP IS AT 2:00 PM.
--- NOTE | 2018-01-05 12:48 | NUR ---
AERODYNAMIC CONSULTANT NOTE: CALLED AND SPOKE WITH JOEL VU FROM [facility] AND GAVE HER REPORT REGARDING THE DISCHARGE OF THE PATIENT BACK TO THE FACILITY. FAXED MED RECON TO JOEL VU (FAX #:[phone]) PER HER REQUEST. AND PER JOEL VU THE PATIENT IS GOING TO ROOM 340A. SHE WAS AWARE THAT THE EXPECTED TIME OF PICK-UP IS AT 2:00 PM. EXIT CARE WAS DONE.
--- NOTE | 2018-01-05 14:25 | NUR ---
T/D NURSE NOTES FEEDING DISCONTINUED AT THIS TIME. PATIENT ABLE TO TOLERATE THE FEEDING WELL. NO GASTRIC RESIDUAL TAKEN ON VENTING
--- NOTE | 2018-01-05 15:25 | NUR ---
WEBSPHERE CONSULTANT NOTE: PATIENT WAS ABOUT TO BE DISCHARGE TO THE CARE HOME, BUT THE PATIENT'S BLOOD PRESSURE WAS 92/45 HR= 61. CALLED AND INFORMED DR. PATRICIO ABOUT THE PATIENT'S BP AND PER MD, GIVE A NS 1L IV BOLUS X 1 AND RECHECK THE BP AND THEN DISCHARGE THE PATIENT TO THE FACILITY. MEDICATION CARE MANAGER PONCHO WAS AWARE ABOUT THE PATIENT'S CONDITION AND WILL UPDATE HER RE: THE PATIENT'S RECHECK FOR THE VIAL SIGN.
[2018-01-05] MEDS ORDERED: IV NS 0.9% 1,000 ML IV PRN (15:30)
[2018-01-05 16:00] VITALS: BP 98/51
--- NOTE | 2018-01-05 17:00 | NUR ---
BENCH LATHE OPERATOR NOTE: NS IV BOLUS WAS DONE AND RECHECKED THE PATIENT'S BP AND IT WAS 107/55 HR= 63. LAST MODEL DEPARTMENT SUPERVISOR PONCHO WAS AWARE AND SHE WILL ARRANGE THE PATIENT'S PICK-UP TIME FOR DISCHARGE. PER PONCHO, PICK-UP TIME WAS 6:30 PM.
[2018-01-05] MEDS: POTASSIUM CHLORIDE 20 MEQ POWDER PACKET PO SCH (17:37)
--- NOTE | 2018-01-05 19:15 | NUR ---
MICROSTRATEGY DEVELOPER NOTE: PATIENT WAS PICKED-UP BY 2 PROGRESS WORKER AND 1 RT OF [facility] VIA GURNEY. PATIENT'S LATEST BP WAS 97/55 AND HR= 67. CALLED AND SPOKE WITH JOEL CONCEPCION FROM [facility] AND MADE HER AWARE OF THE PATIENT'S BLOOD PRESSURE AND SHE WAS OK WITH IT FOR PATIENT'S TRANSFER BACK TO THE FACILITY. JOEL CONCEPCION WAS AWARE THAT PER DR. PATRICIO, HE ORDERED THE NS 1L IV BOLUS X 1 AND THEN DISCHARGE THE PATIENT TO THE FACILITY. PATIENT'S DISCHARGE PAPERWORK WAS SENT WITH THE PATIENT. EXIT CARE WAS DONE. (R) ARM AND (R) HAND IV SITE WAS REMOVED AND COVERED WITH DRY GAUZE AND SECURED WITH TAPE. NO BLEEDING NOTED.
== END 2018-01-05 19:30 | DRG 252 ==
LOC: ER 11:18 → TELE-TD 13:25 → MEDSG1 12-31 08:24 → TELE1 12-31 09:06
PROVIDERS: ADMIT Internal Medicine Nephrology; ATTEND Internal Medicine Nephrology
PROC: 5A1955Z Respiratory Ventilation, Greater than 96 Consecutive Hours (ICD-10-PCS; principal; 2017-12-30)
PROC: 0D2DXUZ Change Feeding Device in Lower Intestinal Tract, External Approach (ICD-10-PCS; principal; 2017-12-30)
DX: K94.12 Enterostomy infection (principal); Z99.11 Dependence on respirator [ventilator] status; G93.40 Encephalopathy, unspecified; K63.2 Fistula of intestine; J96.11 Chronic respiratory failure with hypoxia; R53.2 Functional quadriplegia; E87.0 Hyperosmolality and hypernatremia; K94.13 Enterostomy malfunction; I12.9 Hypertensive chronic kidney disease with stage 1 through stage 4 chronic kidney disease, or unspecified chronic kidney disease; Y84.8 Other medical procedures as the cause of abnormal reaction of the patient, or of later complication, without mention of misadventure at the time of the procedure; Y82.8 Other medical devices associated with adverse incidents; Y92.129 Unspecified place in nursing home as the place of occurrence of the external cause; L03.311 Cellulitis of abdominal wall; G40.909 Epilepsy, unspecified, not intractable, without status epilepticus; R13.10 Dysphagia, unspecified; E11.22 Type 2 diabetes mellitus with diabetic chronic kidney disease; E11.43 Type 2 diabetes mellitus with diabetic autonomic (poly)neuropathy; K31.84 Gastroparesis; N18.9 Chronic kidney disease, unspecified; K21.9 Gastro-esophageal reflux disease without esophagitis; Z91.5 Personal history of self-harm; E03.9 Hypothyroidism, unspecified; Z79.4 Long term (current) use of insulin; Z79.899 Other long term (current) drug therapy; Y84.9 Medical procedure, unspecified as the cause of abnormal reaction of the patient, or of later complication, without mention of misadventure at the time of the procedure; Y82.9 Unspecified medical devices associated with adverse incidents; D64.9 Anemia, unspecified
CPT/HCPCS: 31720; 36415; 71045-TC; 74018; 80048-TC; 80076-TC; 80202-TC; 82962-TC; 83540-TC; 83605-TC; 83735-TC; 84100-TC; 84484-TC; 85025-TC; 85730-TC; 87040-TC; 94002-TC; 94003-TC; 94760-TC; 94762-TC; A4606; J1644; J1815; J1953; J2543; J3370; J7030; J7042; J7050; J7060; J7070; Q9963; Z7610

== ENCOUNTER → 2018-05-03 | Emergency (ER) | payer MEDICAID ==
[~2018-05-03] VITALS: Ht 175.3 cm; Wt 81.6 kg
[~2018-05-03] MED LIST changes: +ACET650S26 JT; -ASCO500T9 GT; +ASCO500T9 JT; -BACL10TA GT; +BACL10TA JT; -FERR220S17 GT; +FERR220S17 JT; +HEPA50008 IJ; +IPRA3AMP23 IH; -LACT1CAP61 GT; +LACT1CAP61 JT; -LEVE100S GT; +LEVE100S JT; -LEVO75TA7 GT; +LEVO75TA7 JT; +NUT.237L30 JT; -PHEN100C4 GT; +PHEN100C4 JT; -POTA20LI4 GT; +POTA20LI4 JT; -PROP40TA7 GT; +PROP40TA7 JT
--- NOTE | 2018-05-03 12:33 | NUR ---
PT BROUGHT IN [facility] FOR ABNORMAL LABS LOW H/H PT ON VENT TRACHED RT CALLED AND HAS G-TUBE PLACED ON MONITOR WILL CONTINUE TO MONITOR.
[2018-05-03 13:08] LABS: BASOPHILS % (AUTO) 0.5 % (0.0-2.0); EOSINOPHILS % (AUTO) 1.8 % (0.0-6.0); HEMATOCRIT 24 % (39-51); HEMOGLOBIN 7.7 g/dL (13.5-17.5); LYMPHOCYTES # (AUTO) 1.1 /CMM (0.8-4.8); LYMPHOCYTES % (AUTO) 16.9 % (20.0-44.0); MEAN CORPUSCULAR HGB CONC 32 g/dl (31.0-36.0); MEAN CORPUSCULAR VOLUME 90 fL (80-96); MONOCYTES # (AUTO) 0.8 /CMM (0.1-1.30); MONOCYTES % (AUTO) 11.5 % (2.0-12.0); NEUTROPHILS # (AUTO) 4.6 /CMM (1.8-8.9); NEUTROPHILS % (AUTO) 69.3 % (43.0-81.0); PLATELET COUNT (AUTO) 279 /CMM (150-450); RED BLOOD CELL COUNT(AUTO) 2.65 MIL/uL (4.5-6.0); WHITE BLOOD COUNT (AUTO) 6.6 K/uL (4.3-11.0)
[2018-05-03 13:18] LABS: CALCIUM, SERUM 9.2 mg/dL (8.5-10.1); CREATININE 2.1 mg/dL (0.6-1.3); POTASSIUM 3.7 mmol/L (3.5-5.1)
[2018-05-03 13:27] LABS: ALBUMIN 2.7 g/dL (3.4-5.0); BILIRUBIN,DIRECT 0.1 mg/dL (0.0-0.2); BILIRUBIN,TOTAL 0.2 mg/dL (0.2-1.0)
--- NOTE | 2018-05-03 13:33 | NUR ---
LAB DRAWN NOTED TO HAVE H/H ALPHONSE MALLORY DISCHARGED CALLING TRANSPORTATION COMPANY FOR DISPATCHER SERVICE BACK TO SNF
--- NOTE | 2018-05-03 13:42 | NUR ---
CALLED [facility] TO ARRANGE A BLS/RT TRANSPORT BACK TO [facility]. ETA 1530 OF WAS GIVEN TRIP#: [id number]
[2018-05-03 14:37] VITALS: BP 143/66
--- NOTE | 2018-05-03 14:40 | NUR ---
RT NOTE PT PLACED ON VENT PER MD ORDER. SETTINGS ENDORSED BY TRANSPORT RT AC 16 500 405 +5. PT HAS PORTEX 9 CUFFED [address] TUBE IN PLACE CUFF INFLATED. TRACH MIDLINE AND SECURE. ALARMS SET PER PROTOCOL AND AUDIBLE. VENT PLUGGED IN TO RED OUTLET. AMBU BAG AT BED SIDE. NO DISTRESS NOTED AT MOMENT. Addendum: 05/03/18 at 1442 by ANDREAS SALAMANCA RT Amended: Links added.
--- NOTE | 2018-05-03 14:43 | NUR ---
CALLED [facility] GIVING RN REPORT TO NIKOLAS ERAZO BY AMBULANCE IS 1530.
--- NOTE | 2018-05-03 15:18 | NUR ---
PT BEING PICKED UP WITH RT TO BE TAKEN BACK TO [facility] BY MARQUISE # [id number]
[2018-05-03 15:19] VITALS: BP 143/62
== END | disposition home or self-care (01) ==
LOC: ER 12:22
DX: D63.8 Anemia in other chronic diseases classified elsewhere (principal); N17.9 Acute kidney failure, unspecified; G93.40 Encephalopathy, unspecified; I10 Essential (primary) hypertension; J96.10 Chronic respiratory failure, unspecified whether with hypoxia or hypercapnia; E11.9 Type 2 diabetes mellitus without complications; F32.9 Major depressive disorder, single episode, unspecified; R45.851 Suicidal ideations; E03.9 Hypothyroidism, unspecified; G40.909 Epilepsy, unspecified, not intractable, without status epilepticus; Z93.1 Gastrostomy status; Z93.0 Tracheostomy status; Z79.4 Long term (current) use of insulin
CPT/HCPCS: 36415; 80048; 80076; 85025; 85730; 86850; 99283; A4606; Z7610

== ENCOUNTER 2018-05-24 13:54 | Inpatient (IN) | payer MEDICAID ==
[2018-05-24] VITALS: BP 94/57
[~2018-05-24] VITALS: Ht 154.9 cm; Wt 77.1 kg
[~2018-05-24 13:54] MED LIST changes: +ACET650S26 GT; -ACET650S26 JT; +ASCO500T9 GT; -ASCO500T9 JT; -FERR220S17 JT; +FERR220S18 GT; +LACT1CAP61 GT; -LACT1CAP61 JT; +LEVE100S GT; -LEVE100S JT
--- NOTE | 2018-05-24 14:05 | NUR ---
[facility] [address] from [place] post acute "GT malfunction". RR IS EVEN AND UNLABORED WITH NAD NOTED. CAME IN WITH VENT WITH THE FOLLOWING SETTINGS: AC=16; VIO2=30%; US=520 AND PEEP=5. SKIN IS WARM AND DRY. AWAITING MD FOR EVAL.
[2018-05-24 14:15] VITALS: BP 93/59
[2018-05-24 14:34] LABS: BASOPHILS % (AUTO) 0.6 % (0.0-2.0); HEMATOCRIT 24 % (39-51); HEMOGLOBIN 7.9 g/dL (13.5-17.5); LYMPHOCYTES % (AUTO) 12.8 % (20.0-44.0); MEAN CORPUSCULAR HGB CONC 32 g/dl (31.0-36.0); MEAN CORPUSCULAR VOLUME 90 fL (80-96); MONOCYTES # (AUTO) 0.8 /CMM (0.1-1.30); MONOCYTES % (AUTO) 9.7 % (2.0-12.0); NEUTROPHILS # (AUTO) 6.1 /CMM (1.8-8.9); NEUTROPHILS % (AUTO) 75.9 % (43.0-81.0); PLATELET COUNT (AUTO) 295 /CMM (150-450); RED BLOOD CELL COUNT(AUTO) 2.72 MIL/uL (4.5-6.0); WHITE BLOOD COUNT (AUTO) 8.1 K/uL (4.3-11.0)
[2018-05-24 14:48] LABS: CALCIUM, SERUM 9.8 mg/dL (8.5-10.1); CREATININE 3.6 mg/dL (0.6-1.3); POTASSIUM 3.5 mmol/L (3.5-5.1)
--- NOTE | 2018-05-24 15:16 | NUR ---
PAGED DR. SHENG BURKETT
[2018-05-24 15:26] LABS: PHOSPHORUS 5.2 mg/dL (2.5-4.9)
--- NOTE | 2018-05-24 15:28 | NUR ---
ROOM 120
--- NOTE | 2018-05-24 16:11 | NUR ---
CALLED GI DOC FOR CONSULT
--- NOTE | 2018-05-24 17:40 | NUR ---
URINE SPECIMEN SENT TO LAB
--- NOTE | 2018-05-24 18:01 | NUR ---
REPORT GIVEN TO JOEL AMES FOR LAUREN RM 120
[2018-05-24 18:16] LABS: APPEARANCE,URINE CLEAR (CLEAR); COLOR,URINE YELLOW (YELLOW)
[2018-05-24 18:17] LABS: BILIRUBIN,URINE NEGATIVE (NEGATIVE); BLOOD, URINE TRACE Ery/uL (NEGATIVE); KETONES,URINE NEGATIVE (NEGATIVE); LEUKOCYTE ESTERASE ,URINE MODERATE (NEGATIVE); NITRITE, URINE NEGATIVE (NEGATIVE); PROTEIN,URINE 100 mg/dl (NEGATIVE); UGLUCOSE NEGATIVE (NEGATIVE); UROBILINOGEN,URINE 0.2 EU/dL (0.2)
[2018-05-24 18:18] LABS: BACTERIA,URINE 2+ /HPF (None Seen); SQUAMOUS EPITHELIAL CELL,UR Few /HPF (None Seen)
[2018-05-24] MEDS ORDERED: HOME (19:29)
[2018-05-24] MEDS ORDERED: METO-358 PO (19:29)
[2018-05-24] MEDS ORDERED: MAGNESIUM HYDROXIDE 30 ML UDC PO PRN (19:30)
[2018-05-24] MEDS ORDERED: ONDANSETRON HCL/PF 4 MG/2 ML VIAL IVP PRN (19:30)
[2018-05-24] MEDS ORDERED: MAG HYDROX/AL HYDROX/SIMETH 30 ML UDC PO PRN (19:30)
[2018-05-24] MEDS ORDERED: ACETAMINOPHEN 325 MG TABLET PO PRN (19:30)
[2018-05-24] MEDS ORDERED: HYDROMORPHONE INJ 2 MG/ML DISP.SYRIN IV PRN (19:30)
[2018-05-24] MEDS ORDERED: ENOXAPARIN SODIUM 40 MG/0.4 ML DISP.SYRIN SQ SCH (19:30)
--- NOTE | 2018-05-24 19:45 | NUR ---
RN NOTE. ADMISSION. RECEIVED THE PT FROM ER VIA YISSEL, PT AWAKE. ALERT. DOES NOT FOLLOW COMMANDS. NONVERBAL. TRACH TO VENT CONNECTED. PORTEX#9.AC 16,TV 500, FIO2 30%, PEEP 5, SAT 99%. NO ACUTE DISTRESS NOTED. STADIUM MANAGER SHOWING NSR. IV LT HAND 20G. SALINE LOCK. HOB ELEVATED. CINDY TUBE INTACT, AROUND THE TUBE SITE IS REDNESS NOTED. WILL CONTINUE TO MONITOR VITALS.
[2018-05-24 20:00] VITALS: BP 102/70
[2018-05-24] MEDS ORDERED: IPRATROPIUM NEB FS 0.5 MG/2.5 ML AMPUL.NEB NEB PRN (20:00)
[2018-05-24] MEDS ORDERED: ALBUTEROL FS 2.5 MG/0.5 ML VIAL.NEB NEB PRN (20:00)
[2018-05-24] MEDS ORDERED: LORAZEPAM INJ 2 MG/ML VIAL IV PRN (20:30)
[2018-05-24] MEDS ORDERED: INSULIN REGULAR, HUMAN 100 UNIT/ML 3 ML VIAL SQ PRN (20:30)
[2018-05-24] MEDS ORDERED: DEXTROSE 50%-WATER 50 ML DISP.SYRIN IV PRN (20:30)
[2018-05-24] MEDS: IV NS 0.9% 1,000 ML IV PRN (21:01)
[2018-05-24] MEDS: CEFTRIAXONE 1 G in IV D5W 50 ML IV SCH (21:17)
[2018-05-24] MEDS: LEVETIRACETAM (500MG) 500 MG in IV NS 0.9% 100 ML IV SCH (21:17)
[2018-05-24] MEDS: HEPARIN SODIUM, PORCINE 5000 UNITS/1 ML VIAL SQ SCH (21:21)
--- NOTE | 2018-05-24 23:30 | NUR ---
RN NOTES, RECEIVED PATIENT FROM JOEL PONCE FOR CONTINUATION OF CARE, PATIENT SLEEPING AT THIS TIME, BUT EASILY AROUSABLE TO VERBAL STIMULI, ON MECHANICAL VENTILATOR TOLERATED SETTINGS WELL, NO ACUTE DISTRESS/SOB NOTED, WILL CONTINUE TO MONITOR CLOSELY.
[2018-05-25] VITALS: BP 100/58
--- NOTE | 2018-05-25 | NUR ---
DRIER OPERATOR HELPER NOTES, ACCUCHECK SCHEDULED AT 0000 DONE BY JOEL PONCE, BLOOD SUGAR LEVEL 104 WITH NO COVERAGE.
[2018-05-25 04:00] VITALS: BP 108/56
[2018-05-25] MEDS: BLOOD SUGAR DIAGNOSTIC 1 EACH STRIP IN SCH ×4 (06:52→18:36)
--- NOTE | 2018-05-25 06:52 | NUR ---
RN NOTES, PATIENT SLEEPING AT THIS TIME, BUT EASILY AROUSABLE TO VERBAL STIMULI, ON MECHANICAL VENTILATOR TOLERATED SETTINGS WELL, NO ACUTE DISTRESS/SOB NOTED, IVF INFUSING WELL AND PATIENT TOLERATED WELL, DRY AND CLEAN AND WELL REPOSITIONED, NO CHANGE IN CONDITION THROUGHOUT THE NIGHT, WILL CONTINUE TO MONITOR CLOSELY. WILL CONTINUE TO MONITOR CLOSELY.
[2018-05-25 06:55] LABS: BASOPHILS % (AUTO) 0.3 % (0.0-2.0); EOSINOPHILS % (AUTO) 0.8 % (0.0-6.0); HEMATOCRIT 23 % (39-51); HEMOGLOBIN 7.3 g/dL (13.5-17.5); LYMPHOCYTES % (AUTO) 12.6 % (20.0-44.0); MEAN CORPUSCULAR HGB CONC 33 g/dl (31.0-36.0); MEAN CORPUSCULAR VOLUME 90 fL (80-96); MONOCYTES # (AUTO) 1.1 /CMM (0.1-1.30); MONOCYTES % (AUTO) 13.2 % (2.0-12.0); NEUTROPHILS # (AUTO) 5.9 /CMM (1.8-8.9); NEUTROPHILS % (AUTO) 73.1 % (43.0-81.0); PLATELET COUNT (AUTO) 283 /CMM (150-450)
--- NOTE | 2018-05-25 07:00 | NUR ---
MANAGER FURNITURE OPENING NOTES RECEIVED REPORT FROM PM NURSE. PT IN BED, EYES CLOSED BUT RESPONSIVE TO LIGHT PAIN. PT IS ON VENT WITH SETTINGS MD ORDERED AND TOLERATING WELL. O2 SAT WNL. ON TELE SR 90'S. NO ADVERSE BREATH SOUNDS NOTED. GT CLAMPED. IV FLUIDS RUNNING; IV PATENT W/ NO S/SX OF INFECTION. BED IN LOCKED/LOWEST POSITION. CALL LIGHT IN REACH. WILL CONT TO MONITOR.
[2018-05-25 07:17] LABS: CALCIUM, SERUM 9.5 mg/dL (8.5-10.1); CREATININE 3.4 mg/dL (0.6-1.3); MAGNESIUM 2.8 mg/dL (1.8-2.4); PHOSPHORUS 4.5 mg/dL (2.5-4.9); POTASSIUM 3.1 mmol/L (3.5-5.1)
[2018-05-25 08:00] VITALS: BP 114/56
--- NOTE | 2018-05-25 08:25 | NUR ---
PT REC'D ON [facility] VENT ON AC MODE. NO RESP DISTRESS OR SOB NOTED. TRACH SECURED AND PATENT. SX'D FOR THICK MOD AMT OF PALE YELLOW SECRETIONS. ALARMS ARE SET AND AUDIBLE. VENT PLUGGED INTO RED OUTLET. AMBU BAG BEDSIDE. WILL CONTINUE TO MONITOR Addendum: 05/25/18 at 1849 by ROBERT NEWTON RT Amended: Links added.
[2018-05-25] MEDS: LEVETIRACETAM (500MG) 500 MG in IV NS 0.9% 100 ML IV SCH ×2 (08:41→20:57)
[2018-05-25] MEDS: LEVOTHYROXINE INJ 100 MCG VIAL IV SCH (08:42)
[2018-05-25] MEDS: PANTOPRAZOLE 40 MG VIAL IV SCH (09:14)
[2018-05-25] MEDS: HEPARIN SODIUM, PORCINE 5000 UNITS/1 ML VIAL SQ SCH ×2 (09:29→21:45)
[2018-05-25] MEDS ORDERED: IPRA0.2S9 IH ×2 (10:11)
[2018-05-25] MEDS ORDERED: EPOE1VIA7 SQ (10:11)
[2018-05-25] MEDS ORDERED: FURO40SO GT (10:11)
[2018-05-25] MEDS ORDERED: PHEN50TA GT (10:11)
[2018-05-25] MEDS ORDERED: ALBU2.5V38 IH ×2 (10:11)
[2018-05-25] MEDS ORDERED: LANS30CA56 GT (10:11)
[2018-05-25] MEDS ORDERED: DOCU50LI GT (10:11)
[2018-05-25] MEDS ORDERED: METO-295 GT (10:11)
[2018-05-25 12:00] VITALS: BP 98/50
[2018-05-25] MEDS ORDERED: EPOETIN ALFA (20,000 UNIT) 20,000 UNIT/ML VIAL SQ ONE (12:00)
[2018-05-25] MEDS: IV NS 0.9% 1,000 ML IV PRN (12:18)
[2018-05-25 16:00] VITALS: BP 91/42
--- NOTE | 2018-05-25 19:15 | NUR ---
OPERATIONS STAFF SPECIALIST SECURITY NOTES ENDORSED PT TO PM NURSE FOR LAUREN. PT'S GT FLUSHED WITH 60CC H2O; NO S/SX OF LEAKAGE AT THIS TIME. NO RESIDUAL NOTED. SCANT SANGUINEOUS DRAINAGE NOTED ON DRESSING. DIETARY CONSULT ORDERED TO RESUME GTF. PT IS ON VENT SETTINGS/SUCTIONED. ORAL CARE PROVIDED. NOT IN DISTRESS. ALL NEEDS ATTENDED. BED IN LOCKED/LOWEST POSITION. CALL LIGHT IN REACH.
[2018-05-25 20:00] VITALS: BP 100/49
[2018-05-25] MEDS: CEFTRIAXONE 1 G in IV D5W 50 ML IV SCH (20:27)
[2018-05-26] VITALS (9 sets, daily range): BP systolic 97–107; BP diastolic 46–58
[2018-05-26] MEDS: BLOOD SUGAR DIAGNOSTIC 1 EACH STRIP IN SCH ×4 (00:09→18:09)
[2018-05-26] MEDS: IV NS 0.9% 1,000 ML IV PRN (03:23)
[2018-05-26 07:10] LABS: BASOPHILS % (AUTO) 0.5 % (0.0-2.0); EOSINOPHILS % (AUTO) 1.2 % (0.0-6.0); HEMATOCRIT 21 % (39-51); LYMPHOCYTES # (AUTO) 1.2 /CMM (0.8-4.8); LYMPHOCYTES % (AUTO) 17.4 % (20.0-44.0); MEAN CORPUSCULAR HGB CONC 32 g/dl (31.0-36.0); MEAN CORPUSCULAR VOLUME 92 fL (80-96); MONOCYTES # (AUTO) 1.1 /CMM (0.1-1.30); MONOCYTES % (AUTO) 15.5 % (2.0-12.0); NEUTROPHILS # (AUTO) 4.6 /CMM (1.8-8.9); NEUTROPHILS % (AUTO) 65.4 % (43.0-81.0); PLATELET COUNT (AUTO) 275 /CMM (150-450)
[2018-05-26 07:36] LABS: CALCIUM, SERUM 9.1 mg/dL (8.5-10.1); CREATININE 4.3 mg/dL (0.6-1.3); POTASSIUM 3.1 mmol/L (3.5-5.1)
--- NOTE | 2018-05-26 08:00 | NUR ---
RN NOTE: AT 0740 DURING INITIAL ASSESSMENT NOTED BLOODY PILLOW. TURN PATIENT FOR, TRAC MARIE RELEASED, NOTICED MULTIPLE SKIN TEARS DUE TO FRICTION, RIGID NECK. WAS NOT ABLE TO ASSESS COMPLETELY DUE TO PT START COUGHING, VENTILATOR START ALARMING, DESATURATING, AGITATED. POSITIONED SAFELY, NECK TIE SECURED, APPLY MEPILEX AROUND TIE. DOUBLE CHECKED WITH RT AT BEDSIDE THAT TIE IS NOT TIGHT. FUR MATCHERMD NOTIFIED, WOUND CARE CONSULTED. WILL FILE INCIDENT RISK REPORT. CONTINUE TO MONITOR.
[2018-05-26 08:02] LABS: HEMOGLOBIN 6.7 g/dL (13.5-17.5)
[2018-05-26 08:20] LABS: BAND % (MANUAL) 4 % (0.0-5.0); EOSINOPHILS % (MANUAL) 1 % (0-4); LYMPHOCYTES % (MANUAL) 17 % (16-48); MONOCYTES % (MANUAL) 14 % (0-11.0); NEUTROPHILS % (MANUAL) 64 (42-76)
--- NOTE | 2018-05-26 08:29 | NUR ---
Received PT trach on Mechanical Vent. Vent plugged to red outlet, alarms set and audible, ambu bag at bedside, spare trach at bedside. Pt tolerating setting well, no sob or distress noted. Trach patent and secure via trach ties, bilateral breath sounds noted, sx large amount of yellow, pink tinged thick secretions. Will continue to monitor pt. Addendum: 05/26/18 at 0830 by MERT FORDE RT Amended: Links added.
[2018-05-26] MEDS ORDERED: POTASSIUM CL. PREMIX PERIPHER. 50 ML IV SCH (08:30)
[2018-05-26] MEDS ORDERED: POTASSIUM CHLORIDE 10 MEQ/50 ML PREMIXED IVPB FOR PERIPHERAL LINE IV ONE (08:30)
[2018-05-26] MEDS: HEPARIN SODIUM, PORCINE 5000 UNITS/1 ML VIAL SQ SCH ×2 (08:57→22:57)
[2018-05-26] MEDS: PANTOPRAZOLE 40 MG VIAL IV SCH (08:58)
[2018-05-26] MEDS: LEVOTHYROXINE INJ 100 MCG VIAL IV SCH (08:58)
[2018-05-26] MEDS: LEVETIRACETAM (500MG) 500 MG in IV NS 0.9% 100 ML IV SCH ×2 (09:47→22:57)
[2018-05-26] MEDS ORDERED: GLUCERNA 1.5 1,000 ML BOTTLE GT PRN (13:00)
--- NOTE | 2018-05-26 13:13 | NUR ---
RN Note: Received orders to start Glucerna 1.2 at start rate of 20ml/hr, goal is 60ml/hr as diatary recommendation. cleared by GI yesterday to start tube feedings. orders noted & carried out.
[2018-05-26] MEDS ORDERED: GLUCERNA 1.2 1,000 ML BOTTLE GT PRN ×2 (13:30→13:33)
--- NOTE | 2018-05-26 15:34 | NUR ---
Standby for PT. RN discovered bloody back neck wound. RN took pictures of wound and applied dressing to trach tie. Will continue to monitor PT. Addendum: 05/26/18 at 1538 by MERT FORDE RT Amended: Links added.
--- NOTE | 2018-05-26 15:40 | NUR ---
RN NOTE: POSTERIOR NECK REASSESSMENT & PICTURE TAKEN. PICTURE TAKEN, PLACED IN THE CHART. WAS NOT ABLE TO DO COMPLETE ASSESSMENT DUE TO PATIENT CONDITION. CALLED RT AT BEDSIDE TO PREVENT TRAC EXTUBATION. PATIENT GETS VERY RIGID DURING NECK CARE & ASSESSMENT. NECK TIE TRAC MARIE CHANGE, APPLIED MEPILEX. CONTINUE TO MONITOR.
[2018-05-26 16:06] LABS: APPEARANCE,URINE SL CLOUDY (CLEAR); BILIRUBIN,URINE NEGATIVE (NEGATIVE); BLOOD, URINE TRACE Ery/uL (NEGATIVE); COLOR,URINE YELLOW (YELLOW); KETONES,URINE NEGATIVE (NEGATIVE); LEUKOCYTE ESTERASE ,URINE 3+ (NEGATIVE); NITRITE, URINE NEGATIVE (NEGATIVE); PROTEIN,URINE 2+ mg/dl (NEGATIVE); UGLUCOSE NEGATIVE (NEGATIVE); UROBILINOGEN,URINE 0.2 EU/dL (0.2)
[2018-05-26 16:35] LABS: BACTERIA,URINE Few /HPF (None Seen); RBC,URINE 0-2 /HPF (0-2); SQUAMOUS EPITHELIAL CELL,UR Rare /HPF (None Seen)
[2018-05-26 16:47] LABS: CREATININE, URINE 73.8 MG/DL (30.0-125.0); URINE TOTAL PROTEIN 126.2 mg/dL (0-11.9)
--- NOTE | 2018-05-26 18:00 | NUR ---
RN NOTE: PATIENT REMAINS ALERT AWAKE OBTUNDED, NON VERBAL, OCCASIONALLY OPEN EYES. NO S/S OF DISTRESS NOTED. ON VENT-TRAC, SETTINGS TOLERATING WELL. NO BREATHING DISTRESS NOTED. BLEEDING STOPPED FROM POSTERIOR NECK. SITE CLEAN & DRY APPLIED MEPILEX. SAFETY MEASURES OBSERVED. CALLED KITCHEN TWICE TO SEND GLUCERNA FEEDING. WILL START ONCE AVAILABLE. BLOOD TRANSFUSION RUNNING AT THIS TIME, STARTED AT 1616, NO ADVERSE REACTIONS NOTED. ALL NEEDS ATTENDED. ASPIRATION PRECAUTIONS OBSERVED. G-TUBE SITE GREENISH MINIMAL LEAKAGE AND REDNESS NOTED. CONTINUE WITH PLAN OF CARE.
[2018-05-26 18:01] LABS: EOSINOPHIL,URINE None Seen
[2018-05-26 19:00] LABS: OCCULT BLOOD STOOL POSITIVE (NEGATIVE)
--- NOTE | 2018-05-26 19:57 | NUR ---
INSOLE LIP TURNER INITIAL NOTES RECEIVED REPORT FROM AM NURSE. PT IN BED, EYES CLOSED BUT RESPONSIVE TO LIGHT PAIN. PT IS ON VENT WITH SETTINGS ORDERED AND TOLERATING WELL. O2 SAT WNL. ON TELE SR 80'S. ON BLOOD TRANSFUSION 1 UNIT PRBC, WELL TOLERATED, NO A/R. GTF TO BE RESUMED @ 20ML, STILL WITH GREENISH DRAINAGE. IV FLUIDS RUNNING; IV PATENT W/ NO S/SX OF INFECTION. BED IN LOCKED/LOWEST POSITION. CALL LIGHT IN REACH. WILL CONT TO MONITOR.
[2018-05-26] MEDS: CEFTRIAXONE 1 G in IV D5W 50 ML IV SCH (20:42)
[2018-05-27] VITALS: BP 100/57
[2018-05-27] MEDS: BLOOD SUGAR DIAGNOSTIC 1 EACH STRIP IN SCH ×4 (00:08→17:31)
[2018-05-27] MEDS: IV NS 0.9% 1,000 ML IV PRN (01:36)
[2018-05-27 04:41] VITALS: BP 113/68
--- NOTE | 2018-05-27 06:09 | NUR ---
FULL TIME PARAMEDIC CLOSING NOTES ENDORSED REPORT TO AM NURSE. PT IN BED, EYES CLOSED BUT RESPONSIVE TO LIGHT PAIN. PT IS ON VENT WITH SETTINGS ORDERED AND TOLERATING WELL. O2 SAT WNL. ON TELE SR 80'S. ON BLOOD TRANSFUSION 1 UNIT PRBC, WELL TOLERATED, NO A/R. GTF TO BE RESUMED @ 20ML, WELL TOLERATED, NO RESIDUAL OR GT SITE LEAKAGE, IV FLUIDS RUNNING; IV PATENT W/ NO S/SX OF INFECTION. BED IN LOCKED/LOWEST POSITION. CALL LIGHT IN REACH. WILL CONT TO MONITOR.
[2018-05-27 07:09] LABS: BASOPHILS % (AUTO) 0.6 % (0.0-2.0); EOSINOPHILS % (AUTO) 2.1 % (0.0-6.0); HEMATOCRIT 24 % (39-51); HEMOGLOBIN 7.8 g/dL (13.5-17.5); LYMPHOCYTES # (AUTO) 1.1 /CMM (0.8-4.8); LYMPHOCYTES % (AUTO) 21.1 % (20.0-44.0); MEAN CORPUSCULAR HGB CONC 32 g/dl (31.0-36.0); MEAN CORPUSCULAR VOLUME 92 fL (80-96); MONOCYTES # (AUTO) 0.9 /CMM (0.1-1.30); MONOCYTES % (AUTO) 16.7 % (2.0-12.0); NEUTROPHILS # (AUTO) 3.2 /CMM (1.8-8.9); NEUTROPHILS % (AUTO) 59.5 % (43.0-81.0); PLATELET COUNT (AUTO) 271 /CMM (150-450); RED BLOOD CELL COUNT(AUTO) 2.66 MIL/uL (4.5-6.0); WHITE BLOOD COUNT (AUTO) 5.4 K/uL (4.3-11.0)
--- NOTE | 2018-05-27 07:25 | NUR ---
RN OPENING/TELE NOTES RECEIVED PT. IN BED IN OBTUNDED CONDITION, PT. CAN OPEN EYES. BREATHING ON A MECHANICAL VENTILATOR UNLABORED. PT. SPO2 IS AT 99%, AC 16, TV 500, FIO2 30%. PT. IS ON A TELE MONITOR. NO S/S OF ACUTE DISTRESS, AND NO SOB. IV FLUIDS RUNNING AT 75 ML/HR. BED IS IN LOWEST, AND LOCKED POSITION. 2 SIDE RAILS UP, AND CALL LIGHT IS WITHIN REACH. ALL NEEDS MET. WILL CONTINUE TO ASSESS AND MONITOR.
[2018-05-27 07:32] LABS: ALBUMIN 2.7 g/dL (3.4-5.0); BILIRUBIN,TOTAL 0.4 mg/dL (0.2-1.0); CALCIUM, SERUM 9.5 mg/dL (8.5-10.1); CREATININE 4.1 mg/dL (0.6-1.3); MAGNESIUM 2.4 mg/dL (1.8-2.4); PHOSPHORUS 3.7 mg/dL (2.5-4.9); POTASSIUM 3.2 mmol/L (3.5-5.1)
[2018-05-27 08:00] VITALS: BP 111/60
[2018-05-27] MEDS: LEVETIRACETAM SOL (5 ML) 100 MG/ML UDC GT SCH ×2 (09:37→21:47)
[2018-05-27] MEDS: PANTOPRAZOLE 40 MG VIAL IV SCH (09:37)
[2018-05-27] MEDS: HEPARIN SODIUM, PORCINE 5000 UNITS/1 ML VIAL SQ SCH ×2 (09:46→21:47)
--- NOTE | 2018-05-27 11:05 | NUR ---
INCREASED G TUBE FEEDING TO 30 ML/HR.
[2018-05-27] MEDS ORDERED: GLUCERNA 1.2 1,000 ML BOTTLE GT PRN (11:15)
[2018-05-27 12:00] VITALS: BP 104/55
[2018-05-27] MEDS: LEVOTHYROXINE SODIUM 75 MCG TABLET GT SCH (12:05)
--- NOTE | 2018-05-27 14:00 | NUR ---
PT. WAS SEEN AND EXAMINED BY DR. GARCIA. PT.'S G TUBE IS SECURE PER MD, ADN NO NEW ORDERS GIVEN.
[2018-05-27 16:00] VITALS: BP 127/73
--- NOTE | 2018-05-27 16:32 | NUR ---
DID NOT SCAN GLUCERNA 1.2 IS RUNNING AT 30 ML/HR FEEDING IS FROM THE SAME GLUCERNA 1.2 BOTTLE.
[2018-05-27] MEDS: IV D5W 1,000 ML IV PRN (16:37)
--- NOTE | 2018-05-27 16:51 | NUR ---
INCREASED G TUBE FEEDING TO 40 ML/HR. PT. HAD 30 CC OF G TUBE FEEDING RESIDUAL BEFORE, AND TOLERATING G TUBE FEEDING WELL.
--- NOTE | 2018-05-27 17:42 | NUR ---
RT NOTE Received PT trach on Mechanical Vent. Vent plugged to red outlet, alarms set and audible, ambu bag at bedside, spare trach at bedside. Pt tolerating setting well, no sob or distress noted. Trach patent and secure via trach ties, bilateral breath sounds noted, sx large amount of yellow, pink tinged thick secretions. Will continue to monitor pt.
--- NOTE | 2018-05-27 19:03 | NUR ---
RN CLOSING/TELE NOTES PT. IN BED, AWAKE, IN OBTUNDED CONDITION, PT. CAN OPEN EYES. BREATHING ON A MECHANICAL VENTILATOR UNLABORED. PT. IS IN SINUS RHYTHM ON TELE MONITOR. PT. HAS A PORTEX SIZE 9 TRACHEOSTOMY. PT. SPO2 IS AT 99%, AC 16, TV 500, FIO2 30%. NO S/S OF ACUTE DISTRESS, AND NO SOB. IV FLUIDS RUNNING AT 100 ML/HR. G TUBE FEEDING RATE IS AT 40 ML/HR. BED IS IN LOWEST, AND LOCKED POSITION. 2 SIDE RAILS UP, AND CALL LIGHT IS WITHIN REACH. ALL NEEDS MET. WILL ENDORSE REPORT TO NURSE.
[2018-05-27 20:00] VITALS: BP 115/68
--- NOTE | 2018-05-27 20:00 | NUR ---
RN NOTES RECEIVED PT. IN BED IN OBTUNDED CONDITION, PT. CAN OPEN EYES. BREATHING ON A MECHANICAL VENTILATOR UNLABORED. PT. SPO2 IS AT 99%, AC 16, TV 500, FIO2 30%. PT. IS ON A TELE MONITOR. NO S/S OF ACUTE DISTRESS, AND NO SOB. IV FLUIDS RUNNING AT 75 ML/HR. BED IS IN LOWEST, AND LOCKED POSITION. 2 SIDE RAILS UP, AND CALL LIGHT IS WITHIN REACH. WILL CONTINUE TO ASSESS AND MONITOR.
--- NOTE | 2018-05-27 20:11 | NUR ---
RT NOTE PATIENT WAS RECEIVED ON CONTINUOUS VENT SUPPORT ON NOTED VENT SETTINGS.BILATERAL BREATH SOUNDS RHONCHI, SUCTIONED PATIENT WITH A MODERATE AMOUNT OF THIN PALE YELLOWISH SECRETIONS. DYNAMIC ETCHING PROCESSOR DONE, TRACH PATENT AND SECURED.VENT PLUGGED INTO RED OUTLET. ALARMS ON AND AUDILE . WILL CONTINUE TO MONITOR. Addendum: 05/27/18 at 2013 by DARCI SALAMANCA RT Amended: Links added.
[2018-05-27] MEDS: CEFTRIAXONE 1 G in IV D5W 50 ML IV SCH (20:43)
[2018-05-28] VITALS: BP 110/65
[2018-05-28 00:57] VITALS: BP 110/65
[2018-05-28] MEDS: BLOOD SUGAR DIAGNOSTIC 1 EACH STRIP IN SCH ×3 (01:03→12:14)
[2018-05-28 04:00] VITALS: BP 105/68
[2018-05-28] MEDS: IV D5W 1,000 ML IV PRN (04:33)
--- NOTE | 2018-05-28 06:55 | NUR ---
RN CLOSING NOTES PT. IN BED, AWAKE, IN OBTUNDED CONDITION, PT. CAN OPEN EYES. BREATHING ON A MECHANICAL VENTILATOR UNLABORED. PT. IS IN SINUS RHYTHM ON TELE MONITOR. PT. HAS A PORTEX SIZE 9 TRACHEOSTOMY. PT. SPO2 IS AT 99%, AC 16, TV 500, FIO2 30%. NO S/S OF ACUTE DISTRESS, AND NO SOB. IV FLUIDS RUNNING AT 100 ML/HR. G TUBE FEEDING RATE IS AT 40 ML/HR. FREE WATER FLUSH GIVEN. BED IS IN LOWEST, AND LOCKED POSITION. 2 SIDE RAILS UP, AND CALL LIGHT IS WITHIN REACH. ALL NEEDS MET. WILL ENDORSE REPORT TO AM NURSE.
--- NOTE | 2018-05-28 07:30 | NUR ---
RN NOTES RECEIVED PATIENT ON [facility] VENT WITH BREATHING NORMAL, EVEN AND UNLABORED. NO SOB NOTED. NO ACUTE DISTRESS NOTED. VENT SETTING REVIEWED AND VERIFIED. TOLERATED WELL. TELE MONITOR REVEAL SR, HR=65. IV L HAND IS PATENT AND INTACT, RUNNING IVF PER ORDER. CONT ON GT FEED GLUCERNA 1.2 KIERSTEN @ 30CC/HR. TOLERATED WELL. NO RESIDUAL NOTED. ASPIRATION PRECAUTION TAKEN. HOB ELEVATED. KEPT CLEAN, DRY AND COMFORTABLE. ALL NEEDS ATTENDED. SAFETY MEASURE OBSERVED. CALL LIGHT WITH IN REACH. WILL CONT TO MONITOR.
[2018-05-28 07:43] LABS: CALCIUM, SERUM 9.3 mg/dL (8.5-10.1); CREATININE 3.6 mg/dL (0.6-1.3); POTASSIUM 3.4 mmol/L (3.5-5.1)
[2018-05-28 07:55] LABS: BASOPHILS % (AUTO) 0.7 % (0.0-2.0); EOSINOPHILS % (AUTO) 3.3 % (0.0-6.0); HEMATOCRIT 26 % (39-51); HEMOGLOBIN 8.3 g/dL (13.5-17.5); LYMPHOCYTES # (AUTO) 0.7 /CMM (0.8-4.8); LYMPHOCYTES % (AUTO) 12.2 % (20.0-44.0); MEAN CORPUSCULAR HGB CONC 32 g/dl (31.0-36.0); MEAN CORPUSCULAR VOLUME 92 fL (80-96); MONOCYTES # (AUTO) 0.6 /CMM (0.1-1.30); MONOCYTES % (AUTO) 10.7 % (2.0-12.0); NEUTROPHILS % (AUTO) 73.1 % (43.0-81.0); PLATELET COUNT (AUTO) 230 /CMM (150-450); RED BLOOD CELL COUNT(AUTO) 2.78 MIL/uL (4.5-6.0); WHITE BLOOD COUNT (AUTO) 5.5 K/uL (4.3-11.0)
--- NOTE | 2018-05-28 07:59 | NUR ---
RT PT RECEIVED WITH A PORTEX 9 TRACH ON THE VENT WITH NOTED SETTINGS. PT IS AWAKE BUT DOES NOT FOLLOW COMMANDS. VENT ALARMS ARE SET AND AUDIBLE WITH BVM BY BEDSIDE. SUPERVISOR TURKEY FARM CUFF PRESSURE NOTED. PT SX SMALL THIN PALE YELLOW SECRETIONS. NO RESPIRATORY DISTRESS NOTED AT THIS TIME. Addendum: 05/28/18 at 1813 by DEANN SHETH RT Amended: Links added.
[2018-05-28 08:00] VITALS: BP_SYST 102; BP_SYST 106; BP_DIAS 31; BP_DIAS 73
[2018-05-28] MEDS: PANTOPRAZOLE 40 MG VIAL IV SCH (08:07)
[2018-05-28] MEDS: LEVETIRACETAM SOL (5 ML) 100 MG/ML UDC GT SCH (08:07)
[2018-05-28] MEDS: LEVOTHYROXINE SODIUM 75 MCG TABLET GT SCH (08:07)
[2018-05-28] MEDS: HEPARIN SODIUM, PORCINE 5000 UNITS/1 ML VIAL SQ SCH (08:10)
[2018-05-28 12:00] VITALS: BP_SYST 102; BP_SYST 89; BP_DIAS 50; BP_DIAS 73
[2018-05-28 12:09] LABS: PTH, INTACT 34 pg/mL (15-65)
--- NOTE | 2018-05-28 14:00 | NUR ---
RN NOTES CALLED SNF REGARDING PNA AND FLU VACCINATION F/U. PER DARIEN DELGADILLO, UNABLE TO PROVIDE RECORDS TODAY [facility] IS CLOSED D/T WEEKEND. CHARGE NURSE PONCHO MADE AWARE.
[2018-05-28 16:00] VITALS: BP 99/56
--- NOTE | 2018-05-28 17:05 | NUR ---
RN NOTES PATIENT DISCHARGED IN STABLE CONDITION WITH BREATHING NORMAL, EVEN AND UNLABORED. NO SOB NOTED. NO ACUTE DISTRESS NOTED. REPORT CALLED AND GIVEN TO AMINA RN. DISCHARGE INSTRUCTION GIVEN WITH FEEDBACK, UNDERSTOOD WELL. IV HEPLOCK REMOVED. NO ACTIVE BLEEDING NOTED. PATIENT LEFT VIA AMBULANCE VIA ACLS PROTOCOL IN STABLE CONDITION.
[2018-05-30 07:07] LABS: *SPE A/G RATIO 0.7 (0.7-1.7); *SPE ALBUMIN 2.9 g/dL (2.9-4.4); *SPE ALPHA-1-GLOBULIN 0.4 g/dL (0.0-0.4); *SPE GLOBULIN, TOTAL 4.2 g/dL (2.2-3.9); *SPE M-SPIKE Not Observed g/dL (Not Observed); *SPEGAMMA GLOBULIN 1.8 g/dL (0.4-1.8)
[2018-07-05] MEDS ORDERED: MERO1VIA IV (08:57)
== END 2018-05-28 17:05 | DRG 252 ==
LOC: ER 13:56 → TELE-TD 15:55 → TELE1 20:26
PROVIDERS: ADMIT Nurse Practitioner Acute Care; ATTEND Nurse Practitioner Acute Care
PROC: 5A1945Z Respiratory Ventilation, 24-96 Consecutive Hours (ICD-10-PCS; principal; 2018-05-24)
PROC: 30233N1 Transfusion of Nonautologous Red Blood Cells into Peripheral Vein, Percutaneous Approach (ICD-10-PCS; 2018-05-26)
DX: K94.23 Gastrostomy malfunction (principal); N17.0 Acute kidney failure with tubular necrosis; G93.41 Metabolic encephalopathy; Z99.11 Dependence on respirator [ventilator] status; J96.11 Chronic respiratory failure with hypoxia; E44.0 Moderate protein-calorie malnutrition; R53.2 Functional quadriplegia; R13.10 Dysphagia, unspecified; N39.0 Urinary tract infection, site not specified; G40.909 Epilepsy, unspecified, not intractable, without status epilepticus; I12.9 Hypertensive chronic kidney disease with stage 1 through stage 4 chronic kidney disease, or unspecified chronic kidney disease; I25.10 Atherosclerotic heart disease of native coronary artery without angina pectoris; K21.9 Gastro-esophageal reflux disease without esophagitis; E11.22 Type 2 diabetes mellitus with diabetic chronic kidney disease; Z79.4 Long term (current) use of insulin; Z79.899 Other long term (current) drug therapy; D64.9 Anemia, unspecified; E03.9 Hypothyroidism, unspecified; E87.6 Hypokalemia; B96.89 Other specified bacterial agents as the cause of diseases classified elsewhere; Z68.33 Body mass index [BMI] 33.0-33.9, adult; E66.9 Obesity, unspecified; J98.11 Atelectasis; Z87.440 Personal history of urinary (tract) infections; Z87.891 Personal history of nicotine dependence; F09 Unspecified mental disorder due to known physiological condition; Y84.9 Medical procedure, unspecified as the cause of abnormal reaction of the patient, or of later complication, without mention of misadventure at the time of the procedure; Y82.9 Unspecified medical devices associated with adverse incidents; Y92.129 Unspecified place in nursing home as the place of occurrence of the external cause; N18.9 Chronic kidney disease, unspecified; F31.9 Bipolar disorder, unspecified; F41.9 Anxiety disorder, unspecified; E87.0 Hyperosmolality and hypernatremia
CPT/HCPCS: 31720; 36415; 71045-TC; 76770-TC; 80048-TC; 80053-TC; 80061-TC; 81000-TC; 82272-TC; 82550-TC; 82570-TC; 82728-TC; 82962-TC; 83540-TC; 83735-TC; 83970; 84100-TC; 84155; 84155-TC; 84165; 84300-TC; 85025-TC; 85730-TC; 86850-TC; 86921-TC; 87081-TC; 87086-TC; 94003-TC; 94760-TC; A4349; A6402; A7526; C9113; G0378; J0696; J0885; J1644; J1815; J1953; J3480; J7030; J7060; J7070; P9016-BL

== ENCOUNTER 2018-06-23 19:56 | Inpatient (IN) | payer MEDICAID ==
[~2018-06-23] VITALS: Ht 177.8 cm; Wt 87.5 kg
[~2018-06-23 19:56] MED LIST changes: +ALBU2.5V38 IH; -BACL10TA JT; +DOCU50LI GT; +EPOE1VIA7 SQ; -FURO20TA4 GT; +FURO40SO GT; -HEPA50008 IJ; +IPRA0.2S9 IH; -IPRA3AMP23 IH; +LANS30CA56 GT; -LEVO75TA7 JT; +METO-295 GT; -PHEN100C4 JT; +PHEN50TA GT; -POTA20LI4 JT; -PROP40TA7 JT
--- NOTE | 2018-06-23 20:07 | NUR ---
PT BIBPA FROM [facility] FOR ABNORMAL LABS; PT AOX0, NON-VERBAL; VENT AND TRACHE DEPENDENT, GT SITE PATENT AND INTACT; PT ON MONITOR, MD ALVINA AT BEDSIDE
[2018-06-23] MEDS ORDERED: PANTOPRAZOLE 40 MG VIAL IV ONE (20:30)
[2018-06-23] MEDS ORDERED: IV NS 0.9% 1,000 ML BAG IV ONE (20:30)
[2018-06-23] MEDS ORDERED: PANTOPRAZOLE 40 MG VIAL ONE (20:35)
[2018-06-23 20:40] LABS: BASOPHILS # (AUTO) 0.1 /CMM (0.0-0.2); BASOPHILS % (AUTO) 0.8 % (0.0-2.0); EOSINOPHILS % (AUTO) 1.8 % (0.0-6.0); HEMATOCRIT 21 % (39-51); LYMPHOCYTES # (AUTO) 0.9 /CMM (0.8-4.8); MEAN CORPUSCULAR HGB CONC 32 g/dl (31.0-36.0); MEAN CORPUSCULAR VOLUME 94 fL (80-96); MONOCYTES # (AUTO) 0.7 /CMM (0.1-1.30); MONOCYTES % (AUTO) 7.9 % (2.0-12.0); NEUTROPHILS # (AUTO) 6.9 /CMM (1.8-8.9); NEUTROPHILS % (AUTO) 79.5 % (43.0-81.0); PLATELET COUNT (AUTO) 323 /CMM (150-450); RED BLOOD CELL COUNT(AUTO) 2.23 MIL/uL (4.5-6.0); WHITE BLOOD COUNT (AUTO) 8.6 K/uL (4.3-11.0)
[2018-06-23 20:42] LABS: HEMOGLOBIN 6.8 g/dL (13.5-17.5)
[2018-06-23 20:49] LABS: CALCIUM, SERUM 9.9 mg/dL (8.5-10.1); CREATININE 3.7 mg/dL (0.6-1.3); POTASSIUM 4.2 mmol/L (3.5-5.1)
--- NOTE | 2018-06-23 21:55 | NUR ---
BLOOD TRANSFUSION STARTED
[2018-06-23 22:11] VITALS: BP 115/76
--- NOTE | 2018-06-23 23:00 | NUR ---
REPORT GIVEN TO JOEL BELLE FOR LAUREN
--- NOTE | 2018-06-23 23:30 | NUR ---
RN NOTES PATIENT CAME IN UNIT WITH 1 PRBC INFUSING ON RIGHT HAND IV ACCES. GT/JT INTACT AND INPLACE. VERIFIED PLACEMENT BY PUSHING AIR AND AUSCULTATING. PATIENT ON VENTILATOR/TRACH. VITAL SIGNS TAKEN.
--- NOTE | 2018-06-23 23:34 | NUR ---
PT TRANSPORTED TO 1ST FLOOR/HUI VIA ACLS PROTOCOL
--- NOTE | 2018-06-23 23:40 | NUR ---
RN NOTES PATIENT HYPOTHERMIC. ALISSON CLOUD INITIATED PER MD ORDER
[2018-06-23 23:53] VITALS: BP 134/40
[2018-06-24] VITALS (7 sets, daily range): BP systolic 100–134; BP diastolic 40–77
[2018-06-24] MEDS ORDERED: DEXTROSE 50%-WATER 50 ML DISP.SYRIN IV PRN
[2018-06-24] MEDS: BLOOD SUGAR DIAGNOSTIC 1 EACH STRIP IN SCH ×5 (00:30→23:52)
--- NOTE | 2018-06-24 01:00 | NUR ---
RN NOTES BLOOD TRANSFUSION OF PRBC 1 UNIT 313 ML FINISHED INFUSING. NO SIGNS OF DISTRESS. VITAL SIGNS WITHIN NORMAL LIMITS.
[2018-06-24] MEDS: GLUCERNA 1.2 1,000 ML BOTTLE JT PRN ×2 (01:09→18:19)
[2018-06-24] MEDS ORDERED: BLOOD SUGAR DIAGNOSTIC 1 EACH STRIP IN SCH (06:00)
[2018-06-24 07:07] LABS: BASOPHILS % (AUTO) 0.4 % (0.0-2.0); EOSINOPHILS % (AUTO) 1.6 % (0.0-6.0); HEMATOCRIT 24 % (39-51); HEMOGLOBIN 7.9 g/dL (13.5-17.5); LYMPHOCYTES # (AUTO) 0.7 /CMM (0.8-4.8); LYMPHOCYTES % (AUTO) 10.8 % (20.0-44.0); MEAN CORPUSCULAR HGB CONC 33 g/dl (31.0-36.0); MEAN CORPUSCULAR VOLUME 92 fL (80-96); MONOCYTES # (AUTO) 0.6 /CMM (0.1-1.30); MONOCYTES % (AUTO) 8.7 % (2.0-12.0); NEUTROPHILS # (AUTO) 5.2 /CMM (1.8-8.9); NEUTROPHILS % (AUTO) 78.5 % (43.0-81.0); PLATELET COUNT (AUTO) 295 /CMM (150-450); RED BLOOD CELL COUNT(AUTO) 2.61 MIL/uL (4.5-6.0); WHITE BLOOD COUNT (AUTO) 6.6 K/uL (4.3-11.0)
[2018-06-24 07:29] LABS: CALCIUM, SERUM 9.5 mg/dL (8.5-10.1); CREATININE 3.6 mg/dL (0.6-1.3); MAGNESIUM 2.9 mg/dL (1.8-2.4); PHOSPHORUS 5.2 mg/dL (2.5-4.9); POTASSIUM 4.1 mmol/L (3.5-5.1)
--- NOTE | 2018-06-24 07:30 | NUR ---
DIVISION OFFICER WEAPONS DEPARTMENT OPENING NOTES RECEIVED BEDSIDE REPORT FROM [facility]. PATIENT A/O X0 NONVERBAL ON VENT TOLERATING SETTINGS. NO SIGNS OR SYMPTOMS OF RESPIRATORY DISTRESS OR ACUTE PAIN NOTED. SINUS RYTHMN 70'S ON TELE MONITOR. SKIN INTACT GTF RUNNINGGLUCERNA 1.2 @ 80ML TOLERATING WITH NO RESIDUAL. RIGHT HAND # 18 GAUGE SALOINE LOCK. SAFETY PRECAUTIONS IN PLACE BED IN LOW POSITION WILL CONT TO MONITOR.
[2018-06-24] MEDS ORDERED: BLOO-668 IN (09:17)
[2018-06-24] MEDS ORDERED: EPOETIN ALFA (20,000 UNIT) 20,000 UNIT/ML VIAL SQ ONE (10:00)
[2018-06-24] MEDS ORDERED: EPOETIN ALFA (10,000 UNIT) 10,000 UNIT/ML VIAL SQ SCH (11:30)
[2018-06-24] MEDS ORDERED: IPRATROPIUM NEB FS 0.5 MG/2.5 ML AMPUL.NEB IH PRN (11:30)
[2018-06-24] MEDS ORDERED: GLUCERNA 1.2 1,000 ML BOTTLE JT SCH (11:30)
[2018-06-24] MEDS: PHENYTOIN SUSP UDC 100 MG/4 ML UDC GT SCH ×2 (12:39→21:40)
[2018-06-24] MEDS: LEVETIRACETAM SOL (5 ML) 100 MG/ML UDC GT SCH ×2 (12:39→21:39)
[2018-06-24] MEDS: METOCLOPRAMIDE HCL 10 MG TABLET GT SCH ×2 (12:40→21:39)
[2018-06-24] MEDS: LACTOBACILLUS RHAMNOSUS GG 1 EACH CAP.SPRINK GT SCH ×2 (12:40→17:10)
[2018-06-24] MEDS: FERROUS SULFATE UDC 300 MG/5 ML UDC GT SCH ×3 (12:40→17:10)
[2018-06-24] MEDS ORDERED: ALBUTEROL FS 2.5 MG/3 ML VIAL.NEB NEB PRN (13:30)
[2018-06-24] MEDS: ALBUTEROL FS 2.5 MG/3 ML VIAL.NEB NEB SCH ×2 (14:13→19:38)
[2018-06-24] MEDS: IPRATROPIUM NEB FS 0.5 MG/2.5 ML AMPUL.NEB IH SCH ×2 (14:13→19:38)
[2018-06-24] MEDS: ACETAMINOPHEN 650 MG/20.3 ML UDC GT PRN ×2 (15:16→21:40)
--- NOTE | 2018-06-24 16:31 | NUR ---
Patient is trach/vent dependent. He resides at [facility] [phone]. He is totally dependent with adl's and bedfast. Current dc plan is to return to [facility] once discharge. Addendum: 06/24/18 at 1631 by IRINA ANTOINE RN Amended: Links added.
[2018-06-24] MEDS: DOCUSATE SODIUM LIQ 100 MG/10 ML UDC GT SCH (17:09)
[2018-06-24] MEDS: PANTOPRAZOLE 40 MG/PACK PACK NG SCH (17:10)
[2018-06-24] MEDS: FUROSEMIDE 40 MG TABLET GT SCH (17:10)
[2018-06-24] MEDS: INSULIN REGULAR, HUMAN 100 UNIT/ML 3 ML VIAL SQ PRN ×2 (17:32→23:53)
--- NOTE | 2018-06-24 17:35 | NUR ---
RT Pt rec'd trach'd and on [facility] vent w charted settings. Alarms are set and audible w ambubag @ hob. Vent is plugged into red outlet. Marketing Production Specialist done. Pt trach is secure and patent. Pt sx'd and hhn tx given w no adverse reactions. No sob or respiratory distress noted t/o shift. Will continue to monitor. Addendum: 06/24/18 at 1736 by VASYL GARCIA RT Amended: Links added.
[2018-06-24] MEDS ORDERED: INSULIN REGULAR, HUMAN 100 UNIT/ML 3 ML VIAL SQ SCH (18:00)
[2018-06-24] MEDS: IV 1/2NS 1000 ML 1,000 ML IV PRN (18:20)
--- NOTE | 2018-06-24 19:15 | NUR ---
TELE/RN INITIAL NOTES RECEIVED PT IN BED, OBTUNDED. WITH INTACT PORTEX #9, TOLERATING VENT SETTINGS AC16, TV500; FI02 30; PEEP5. SPO2 100%. WITH ONGOING IVF 1/2 NS @ 75 ML/HR INFUSING WELL ON RHAND G18 IV. WITH INTACT AND IN PLACED GT/JT, JT CLAMPED, WITH ONGOING GTF GLUCERNA 1.2@80 ML/HR, TOLERATING WELL. HOB ELEVATED. SAFETY MEASURES, ASPIRATION AND SEIZURE PRECAUTION IN PLACED. WILL CONT TO MONITOR
--- NOTE | 2018-06-24 19:25 | NUR ---
PHYSICAL EDUCATION SPECIALIST CLOSING NOTES BEDSIDE REPORT GIVEN TO NOC. PATIENT A/O X0 NONVERBAL ON VENT TOLERATING SETTINGS. NO SIGNS OR SYMPTOMS OF RESPIRATORY DISTRESS OR ACUTE PAIN NOTED. SINUS RHYTHM 70'S ON TELE MONITOR. SKIN INTACT GTF RUNNING GLUCERNA 1.2 @ 80ML TOLERATING WITH NO RESIDUAL. RIGHT HAND # 18 GAUGE RUNNING 1/2 NS @ 75 ML/HR . SAFETY PRECAUTIONS IN PLACE BED IN LOW POSITION WILL CONT TO MONITOR.
--- NOTE | 2018-06-24 20:31 | NUR ---
RT Pt rec'd trach'd and on [facility] vent with charted settings. Alarms are set and audible with ambu bag at [facility]. Vent is plugged into red outlet. [employer] Supervisor done. Pt trach is secure and patent. Pt sx'd and hhn tx given with no adverse reactions. No sob or respiratory distress noted at this time. Will continue to monitor. Addendum: 06/24/18 at 2031 by MARIA DOLORES SHELL RT Amended: Links added.
[2018-06-24] MEDS: INSULIN GLARGINE, 100 UNIT/ML CARTRIDGE SQ SCH (22:03)
[2018-06-25] VITALS (7 sets, daily range): BP systolic 70–134; BP diastolic 46–65
[2018-06-25] MEDS: IPRATROPIUM NEB FS 0.5 MG/2.5 ML AMPUL.NEB IH SCH ×4 (01:28→20:23)
[2018-06-25] MEDS: ALBUTEROL FS 2.5 MG/3 ML VIAL.NEB NEB SCH ×4 (01:28→20:23)
[2018-06-25] MEDS: METOCLOPRAMIDE HCL 10 MG TABLET GT SCH ×3 (04:43→21:24)
[2018-06-25] MEDS: GLUCERNA 1.2 1,000 ML BOTTLE JT PRN ×2 (05:31→23:49)
[2018-06-25] MEDS: IV 1/2NS 1000 ML 1,000 ML IV PRN ×2 (05:32→17:08)
[2018-06-25] MEDS: BLOOD SUGAR DIAGNOSTIC 1 EACH STRIP IN SCH ×4 (06:03→23:49)
[2018-06-25] MEDS: INSULIN REGULAR, HUMAN 100 UNIT/ML 3 ML VIAL SQ PRN ×4 (06:05→23:51)
--- NOTE | 2018-06-25 06:46 | NUR ---
RN NOTES PT IN STABLE CONDITION. NO ACUTE CHANGES THROUGHOUT SHIFT. NO SEIZURE EPISODE NOTED THROUGHOUT SHIFT. SAFETY MEASURES, SEIZURE AND ASPIRATION PRECAUTION OBSERVED AT ALL TIMES. ALL NEEDS ANTICIPATED. ENDORSED TO AM SHIFT RN FOR LAUREN
[2018-06-25 06:55] LABS: BASOPHILS % (AUTO) 0.3 % (0.0-2.0); EOSINOPHILS % (AUTO) 0.6 % (0.0-6.0); HEMATOCRIT 23 % (39-51); HEMOGLOBIN 7.6 g/dL (13.5-17.5); LYMPHOCYTES # (AUTO) 1.5 /CMM (0.8-4.8); MEAN CORPUSCULAR HGB CONC 33 g/dl (31.0-36.0); MEAN CORPUSCULAR VOLUME 93 fL (80-96); MONOCYTES % (AUTO) 10.3 % (2.0-12.0); NEUTROPHILS # (AUTO) 7.4 /CMM (1.8-8.9); NEUTROPHILS % (AUTO) 73.8 % (43.0-81.0); PLATELET COUNT (AUTO) 362 /CMM (150-450); RED BLOOD CELL COUNT(AUTO) 2.49 MIL/uL (4.5-6.0); WHITE BLOOD COUNT (AUTO) 10.1 K/uL (4.3-11.0)
[2018-06-25 07:10] LABS: CALCIUM, SERUM 9.3 mg/dL (8.5-10.1); CREATININE 4.1 mg/dL (0.6-1.3); PHOSPHORUS 4.2 mg/dL (2.5-4.9); POTASSIUM 4.1 mmol/L (3.5-5.1)
--- NOTE | 2018-06-25 07:30 | NUR ---
INITIAL PATIENT ON BED TRACH CONNECTED TO VENTILATOR TOLERATING SETTINGS A/O X0 NONVERBAL NO SIGNS OR SYMPTOMS OF RESPIRATORY DISTRESS OR ACUTE PAIN NOTED. SINUS RHYTHM 70'S ON TELE MONITOR. SKIN INTACT GTF RUNNING GLUCERNA 1.2 @ 80ML TOLERATING WITH NO RESIDUAL. RIGHT HAND # 18 GAUGE RUNNING 1/2 NS @ 75 ML/HR . SAFETY PRECAUTIONS IN PLACE BED IN LOW POSITION WILL CONT TO MONITOR.
[2018-06-25 09:05] LABS: OCCULT BLOOD STOOL POSITIVE (NEGATIVE)
[2018-06-25] MEDS: DOCUSATE SODIUM LIQ 100 MG/10 ML UDC GT SCH ×2 (09:11→16:38)
[2018-06-25] MEDS: LACTOBACILLUS RHAMNOSUS GG 1 EACH CAP.SPRINK GT SCH ×2 (09:11→16:38)
[2018-06-25] MEDS: PHENYTOIN SUSP UDC 100 MG/4 ML UDC GT SCH ×2 (09:12→21:23)
[2018-06-25] MEDS: FERROUS SULFATE UDC 300 MG/5 ML UDC GT SCH ×3 (09:12→16:38)
[2018-06-25] MEDS: FUROSEMIDE 40 MG TABLET GT SCH (09:12)
[2018-06-25] MEDS: LEVETIRACETAM SOL (5 ML) 100 MG/ML UDC GT SCH ×2 (09:12→21:23)
[2018-06-25] MEDS: ASCORBIC ACID 500 MG TABLET GT SCH (09:12)
[2018-06-25] MEDS: PANTOPRAZOLE 40 MG/PACK PACK NG SCH ×2 (09:13→16:38)
--- NOTE | 2018-06-25 10:38 | NUR ---
POOR PERIPHERAL IV ACEESSS,ON MULTIPLE IVS WILL OBTAIN MIDLINE PER MD.
--- NOTE | 2018-06-25 18:29 | NUR ---
CLOSING BEDSIDE REPORT GIVEN TO PM SHIFT. PATIENT A/O X0 NONVERBAL ON VENT TOLERATING SETTINGS. NO SIGNS OR SYMPTOMS OF RESPIRATORY DISTRESS OR ACUTE PAIN NOTED. SINUS RHYTHM 70'S ON TELE MONITOR. SKIN INTACT GTF RUNNING GLUCERNA 1.2 @ 80ML TOLERATING WITH 140ML RESIDUAL STOPPED FEEDINGS FOR 1 HOUR THEN RESTARTED. RIGHT HAND # 18 GAUGE RUNNING 1/2 NS @ 75 ML/HR . PLAN TO SCHEDULE EGD. SAFETY PRECAUTIONS IN PLACE BED IN LOW POSITION WILL CONT TO MONITOR.
--- NOTE | 2018-06-25 19:10 | NUR ---
TELE/RN INITIAL NOTES RECEIVED PT IN BED, OBTUNDED. WITH INTACT PORTEX #9, TOLERATING VENT SETTINGS AC16, TV500; FI02 30; PEEP5. SPO2 100%. SR HR 80S ON TELE. WITH ONGOING IVF 1/2 NS @ 75 ML/HR INFUSING WELL ON RHAND G18 IV. ANGELIQUE MIDLINE INTACT AND PATENT. WITH INTACT AND IN PLACED GT/JT, JT CLAMPED, WITH ONGOING GTF GLUCERNA 1.2@80 ML/HR, TOLERATING WELL. HOB ELEVATED. SAFETY MEASURES, ASPIRATION AND SEIZURE PRECAUTION IN PLACED. WILL CONT TO MONITOR
[2018-06-25] MEDS: INSULIN GLARGINE, 100 UNIT/ML CARTRIDGE SQ SCH (21:52)
[2018-06-26] VITALS (11 sets, daily range): BP systolic 93–109; BP diastolic 34–74
[2018-06-26] MEDS: IPRATROPIUM NEB FS 0.5 MG/2.5 ML AMPUL.NEB IH SCH ×4 (01:54→19:29)
[2018-06-26] MEDS: ALBUTEROL FS 2.5 MG/3 ML VIAL.NEB NEB SCH ×4 (01:55→19:29)
[2018-06-26] MEDS: IV 1/2NS 1000 ML 1,000 ML IV PRN ×2 (05:15→23:05)
[2018-06-26] MEDS: METOCLOPRAMIDE HCL 10 MG TABLET GT SCH ×3 (05:15→20:44)
[2018-06-26] MEDS: BLOOD SUGAR DIAGNOSTIC 1 EACH STRIP IN SCH ×3 (05:43→18:00)
[2018-06-26 06:28] LABS: APPEARANCE,URINE SL CLOUDY (CLEAR); BILIRUBIN,URINE NEGATIVE (NEGATIVE); BLOOD, URINE TRACE Ery/uL (NEGATIVE); COLOR,URINE YELLOW (YELLOW); KETONES,URINE NEGATIVE (NEGATIVE); LEUKOCYTE ESTERASE ,URINE 3+ (NEGATIVE); NITRITE, URINE NEGATIVE (NEGATIVE); PH,URINE 6.5 (5.0-8.0); PROTEIN,URINE 1+ mg/dl (NEGATIVE); UGLUCOSE NEGATIVE (NEGATIVE); UROBILINOGEN,URINE 0.2 EU/dL (0.2)
[2018-06-26 06:42] LABS: BACTERIA,URINE Few /HPF (None Seen); SQUAMOUS EPITHELIAL CELL,UR 0-2 /HPF (None Seen); YEAST,URINE Moderate /HPF (None Seen)
[2018-06-26 06:50] LABS: CREATININE, URINE 49.5 MG/DL (30.0-125.0)
--- NOTE | 2018-06-26 07:04 | NUR ---
RN NOTES PT IN STABLE CONDITION. NO ACUTE CHANGES THROUGHOUT SHIFT. NO SEIZURE EPISODE NOTED. SAFETY MEASURES, ASPIRATION AND SEIZURE PRECAUTION OBSERVED AT ALL TIMES. ALL NEEDS ANTICIPATED. ENDORSED TO AM SHIFT RN FOR LAUREN
[2018-06-26 07:05] LABS: EOSINOPHIL,URINE None Seen
--- NOTE | 2018-06-26 07:30 | NUR ---
RN AM SHIFT NOTE PATIENT RESPONSIVE TO TOUCH, ABTUNDED, NON BERBAL, SINUS RHYTHM IN 80'S. FLUSH NG TUVE Q 4HRS WITH 200CC. BED BOUND SKIN INTACT, FEEDING GLUCERNA 1.2 AT 80ML/HR NO RESIDUAL. RIGHT UPPER MIDLINE 18, R HAND 18. N/S RUNNING 75ML/HR. BLOOD SUGAR 114 NO COVERAGE. LAB CALLED REPORTED HEMOGLOBIN 6.5 AND HEMATORCRIT 20. OK TO TRANSFUSE 1 UNIT PACKED RBC PER DR GERMAN ORDERS NO PREMEDITION ORDERED. THERE WAS UNIT IN LAB PREPARED FOR THE PATIENT ALREADY. BED IN LOW POSITION SAFETY MEASURES IN PLACE. CONTINUE TO MONITOR.
[2018-06-26 08:10] LABS: BASOPHILS % (AUTO) 0.2 % (0.0-2.0); EOSINOPHILS % (AUTO) 2.1 % (0.0-6.0); LYMPHOCYTES # (AUTO) 1.2 /CMM (0.8-4.8); LYMPHOCYTES % (AUTO) 12.6 % (20.0-44.0); MEAN CORPUSCULAR HGB CONC 33 g/dl (31.0-36.0); MEAN CORPUSCULAR VOLUME 93 fL (80-96); MONOCYTES # (AUTO) 0.8 /CMM (0.1-1.30); MONOCYTES % (AUTO) 9.1 % (2.0-12.0); PLATELET COUNT (AUTO) 336 /CMM (150-450); RED BLOOD CELL COUNT(AUTO) 2.15 MIL/uL (4.5-6.0); WHITE BLOOD COUNT (AUTO) 9.2 K/uL (4.3-11.0)
[2018-06-26 08:27] LABS: HEMATOCRIT 20 % (39-51); HEMOGLOBIN 6.5 g/dL (13.5-17.5)
[2018-06-26 08:42] LABS: CALCIUM, SERUM 9.4 mg/dL (8.5-10.1); CREATININE 3.8 mg/dL (0.6-1.3); MAGNESIUM 2.8 mg/dL (1.8-2.4); PHOSPHORUS 4.7 mg/dL (2.5-4.9); POTASSIUM 3.6 mmol/L (3.5-5.1)
[2018-06-26 08:44] LABS: BAND % (MANUAL) 6 % (0.0-5.0); EOSINOPHILS % (MANUAL) 5 % (0-4); LYMPHOCYTES % (MANUAL) 15 % (16-48); MONOCYTES % (MANUAL) 10 % (0-11.0); NEUTROPHILS % (MANUAL) 64 (42-76)
[2018-06-26] MEDS: LEVETIRACETAM SOL (5 ML) 100 MG/ML UDC GT SCH ×2 (09:04→20:44)
[2018-06-26] MEDS: DOCUSATE SODIUM LIQ 100 MG/10 ML UDC GT SCH ×2 (09:05→16:58)
[2018-06-26] MEDS: PANTOPRAZOLE 40 MG/PACK PACK NG SCH ×2 (09:05→16:58)
[2018-06-26] MEDS: FERROUS SULFATE UDC 300 MG/5 ML UDC GT SCH ×3 (09:05→16:58)
[2018-06-26] MEDS: ASCORBIC ACID 500 MG TABLET GT SCH (09:05)
[2018-06-26] MEDS: LACTOBACILLUS RHAMNOSUS GG 1 EACH CAP.SPRINK GT SCH ×2 (09:05→16:58)
[2018-06-26] MEDS: PHENYTOIN SUSP UDC 100 MG/4 ML UDC GT SCH ×2 (09:05→20:44)
[2018-06-26] MEDS ORDERED: EPOETIN ALFA (10,000 UNIT) 10,000 UNIT/ML VIAL SQ ONE (12:30)
[2018-06-26] MEDS: INSULIN REGULAR, HUMAN 100 UNIT/ML 3 ML VIAL SQ PRN (13:12)
[2018-06-26] MEDS: GLUCERNA 1.2 1,000 ML BOTTLE JT PRN (14:07)
--- NOTE | 2018-06-26 16:27 | NUR ---
RN NOTE CONSENT FOR EGD ORDERED BY DR JENNINGS TODAY DUE TO LOW H/H AND BLACK TARY STOOL. CALLED BROTHER FOR CONSENT, APPROVED THE PROCEDURE AND CONSENT FOR SEDATION / ANESTHESIA.
--- NOTE | 2018-06-26 18:19 | NUR ---
RN CLOSING NOTE PATIENT NON VERBAL, UNABLE TO AMBUALTE, BED BOUND. SR ON MONITOR 80'S. SKIN INTACT , RIGHT UPPER MIDLINE RIGHT HAND 18 GAUGE PATENT AND FLUSHING, NS RUNING 75ML/HR. ACCUCECK AT 5PM 104 NO COVERAGE. PATIENT WAS TRANSFUSED PER MD GERMAN DUE TO LOW HEMOGLOBIN 6.[address] MCMAHAN ORDERED EDG TO BE DONE TOMORROW. NPO AND HOLD TUBE FEEDING TONIGHT AFTER 12 AM. FAMILY / BROTHER OK THE PROCEDURE AND CONSENT FOR ANESTHESIA. CONSENT IN CHART. SAFETY MEASURES IN PLACE, SIDE RAILS UP. CONTINUE TO MONITOR.
--- NOTE | 2018-06-26 19:30 | NUR ---
TELEMETRY NOTES RECEIVED PT ON VENT PER TRACH 02 AT 35%,A/C 16,TV 500,PEP OF 5.SAT=93%.SUCTIONED VIA TRACH FOR SCANT AMT.WHITISH TO PALE YELLOW SECRETIONS,LARGE WHITE SECRETIONS FROM MOUTH,ORAL CARE DONE.
--- NOTE | 2018-06-26 21:45 | NUR ---
RT PATIENT WAS RECEIVED ON CONTINUOUS VENT SUPPORT ON NOTED SETTINGS. [place]ET[place]S CONSERVATION LABORER CUFF PRESSURE DONE. CHECKED ALARMS AND ARE AUDIBLE. VENT PLUGGED INTO RED OUTLET. AMBUBAG AT BEDSIDE. PRN SUCTIONING WAS DONE. TRACH TUBE PATENT AND SECURED. WILL CONTINUE TO MONITOR PATIENT. Addendum: 06/26/18 at 2146 by DARCI SALAMANCA RT Amended: Links added.
[2018-06-26] MEDS: INSULIN GLARGINE, 100 UNIT/ML CARTRIDGE SQ SCH (22:10)
[2018-06-27] VITALS: BP 92/49
[2018-06-27] MEDS: BLOOD SUGAR DIAGNOSTIC 1 EACH STRIP IN SCH ×5 (00:25→22:43)
--- NOTE | 2018-06-27 01:00 | NUR ---
TELE NOTES REQUIRING FREQUENT SUCTIONING FR TRACH AND MOUTH.
[2018-06-27] MEDS: ALBUTEROL FS 2.5 MG/3 ML VIAL.NEB NEB SCH ×4 (01:36→19:59)
[2018-06-27] MEDS: IPRATROPIUM NEB FS 0.5 MG/2.5 ML AMPUL.NEB IH SCH ×4 (01:36→19:59)
--- NOTE | 2018-06-27 02:00 | NUR ---
TELE NOTES. NPO FROM M/N OBSERVED.
[2018-06-27 04:00] VITALS: BP 112/55
[2018-06-27] MEDS: METOCLOPRAMIDE HCL 10 MG TABLET GT SCH ×3 (04:51→22:20)
--- NOTE | 2018-06-27 06:00 | NUR ---
TELE NOTES CONTINUES TO SUCTION FREQUENTLY.INCONTINENT OF URINE X3,INCONTINENT OF STOOL X2.
[2018-06-27 06:48] LABS: BASOPHILS % (AUTO) 0.4 % (0.0-2.0); EOSINOPHILS % (AUTO) 2.3 % (0.0-6.0); HEMATOCRIT 23 % (39-51); HEMOGLOBIN 7.6 g/dL (13.5-17.5); LYMPHOCYTES # (AUTO) 1.1 /CMM (0.8-4.8); LYMPHOCYTES % (AUTO) 14.1 % (20.0-44.0); MEAN CORPUSCULAR HGB CONC 33 g/dl (31.0-36.0); MEAN CORPUSCULAR VOLUME 92 fL (80-96); MONOCYTES # (AUTO) 0.7 /CMM (0.1-1.30); MONOCYTES % (AUTO) 9.8 % (2.0-12.0); NEUTROPHILS # (AUTO) 5.6 /CMM (1.8-8.9); NEUTROPHILS % (AUTO) 73.4 % (43.0-81.0); PLATELET COUNT (AUTO) 296 /CMM (150-450); RED BLOOD CELL COUNT(AUTO) 2.52 MIL/uL (4.5-6.0); WHITE BLOOD COUNT (AUTO) 7.6 K/uL (4.3-11.0)
[2018-06-27 07:19] LABS: CREATININE 3.4 mg/dL (0.6-1.3); MAGNESIUM 2.7 mg/dL (1.8-2.4); PHOSPHORUS 4.1 mg/dL (2.5-4.9); POTASSIUM 3.8 mmol/L (3.5-5.1)
--- NOTE | 2018-06-27 07:25 | NUR ---
RN OPENING NOTE PATIENT IS OBTUNDED YET RESPONSIVE TO TOUCH. NON-VERBAL. ON TELE MONITOR SINUS RHYTHM IN 80'S. PATIENT IS NPO AFTER MIDNIGHT DUE TO EGD TODAY. SKIN IS INTACT. RIGHT UPPER MIDLINE G18 RUNNING HALF NS AT 75ML/HR. ALSO, RIGHT HAND G18 SL INTACT PATENT AND SALINE FLUSHED. BLOOD SUGAR 71 NO COVERAGE. BED LOCKED AND IN LOW POSITION. SAFETY MEASURES IN PLACE. WILL CONTINUE TO MONITOR THROUGHOUT THE SHIFT.
[2018-06-27 08:00] VITALS: BP 132/62
[2018-06-27] MEDS: ASCORBIC ACID 500 MG TABLET GT SCH (09:00)
[2018-06-27] MEDS: PHENYTOIN SUSP UDC 100 MG/4 ML UDC GT SCH ×2 (09:00→22:19)
[2018-06-27] MEDS: PANTOPRAZOLE 40 MG/PACK PACK NG SCH ×2 (09:00→16:43)
[2018-06-27] MEDS: LEVETIRACETAM SOL (5 ML) 100 MG/ML UDC GT SCH ×2 (09:00→22:19)
[2018-06-27] MEDS: FERROUS SULFATE UDC 300 MG/5 ML UDC GT SCH ×3 (09:00→16:43)
[2018-06-27] MEDS: LACTOBACILLUS RHAMNOSUS GG 1 EACH CAP.SPRINK GT SCH ×2 (09:00→16:43)
[2018-06-27] MEDS: DOCUSATE SODIUM LIQ 100 MG/10 ML UDC GT SCH ×2 (09:00→16:43)
[2018-06-27 12:00] VITALS: BP 115/47
[2018-06-27] MEDS: IV 1/2NS 1000 ML 1,000 ML IV PRN (15:20)
--- NOTE | 2018-06-27 15:39 | NUR ---
STRIP STAMP STRAIGHTENER NOTE EGD DONE AROUND 1430. CALLED DR. GARCIA AND OK'D TO RESUME GT FEEDING ORDERED.
[2018-06-27] MEDS: GLUCERNA 1.2 1,000 ML BOTTLE JT PRN (15:41)
[2018-06-27 16:00] VITALS: BP 118/56
[2018-06-27] MEDS ORDERED: EPOETIN ALFA (10,000 UNIT) 10,000 UNIT/ML VIAL SQ ONE (17:00)
[2018-06-27] MEDS ORDERED: Z GUARD REMEDY 2 OZ OINT TP PRN (18:30)
[2018-06-27 20:00] VITALS: BP 97/75
[2018-06-27] MEDS: INSULIN GLARGINE, 100 UNIT/ML CARTRIDGE SQ SCH (22:39)
[2018-06-28] VITALS (7 sets, daily range): BP systolic 80–116; BP diastolic 40–58
[2018-06-28] MEDS: ALBUTEROL FS 2.5 MG/3 ML VIAL.NEB NEB SCH ×4 (01:11→19:11)
[2018-06-28] MEDS: IPRATROPIUM NEB FS 0.5 MG/2.5 ML AMPUL.NEB IH SCH ×4 (01:11→19:11)
[2018-06-28] MEDS: METOCLOPRAMIDE HCL 10 MG TABLET GT SCH ×3 (05:34→21:02)
[2018-06-28] MEDS: IV 1/2NS 1000 ML 1,000 ML IV PRN ×2 (05:34→21:10)
[2018-06-28] MEDS: BLOOD SUGAR DIAGNOSTIC 1 EACH STRIP IN SCH ×3 (06:18→17:34)
[2018-06-28 06:48] LABS: BASOPHILS % (AUTO) 0.3 % (0.0-2.0); EOSINOPHILS % (AUTO) 3.2 % (0.0-6.0); HEMATOCRIT 24 % (39-51); HEMOGLOBIN 8.2 g/dL (13.5-17.5); LYMPHOCYTES % (AUTO) 15.2 % (20.0-44.0); MEAN CORPUSCULAR HGB CONC 34 g/dl (31.0-36.0); MEAN CORPUSCULAR VOLUME 93 fL (80-96); MONOCYTES # (AUTO) 0.7 /CMM (0.1-1.30); MONOCYTES % (AUTO) 10.5 % (2.0-12.0); NEUTROPHILS # (AUTO) 4.7 /CMM (1.8-8.9); NEUTROPHILS % (AUTO) 70.8 % (43.0-81.0); PLATELET COUNT (AUTO) 326 /CMM (150-450); WHITE BLOOD COUNT (AUTO) 6.6 K/uL (4.3-11.0)
[2018-06-28 07:02] LABS: CALCIUM, SERUM 8.8 mg/dL (8.5-10.1); CREATININE 3.1 mg/dL (0.6-1.3); MAGNESIUM 2.4 mg/dL (1.8-2.4); PHOSPHORUS 3.7 mg/dL (2.5-4.9); POTASSIUM 4.1 mmol/L (3.5-5.1)
--- NOTE | 2018-06-28 07:30 | NUR ---
RN NOTES RECEIVED PATIENT IN BED, OBTUNDED. TRACH TUBE:PORTEX #[address] AT MIDLINE AND INTACT, VENT SETTINGS FOLLOWS: AC16, TV500; FI02 30; PEEP5 TOLERATING WELL. SATURATION AT 100%. WITH INTACT AND IN PLACED GT/JT, GT CLAMPED, WITH ONGOING GTF GLUCERNA 1.2@80 ML/HR,TOLERATING WELL. IV LINE ON THE R HAND AND MIDLINE TO THE UPPER ARM, BOTH G18, IN PLACE AND PATENT. HOB ELEVATED. SAFETY MEASURES OBSERVED AND MAINTAINED, ASPIRATION AND SEIZURE PRECAUTION IN PLACED. WILL CONTINUE TO MONITOR PATIENT CLOSELY
[2018-06-28] MEDS: DOCUSATE SODIUM LIQ 100 MG/10 ML UDC GT SCH ×2 (08:46→16:11)
[2018-06-28] MEDS: LACTOBACILLUS RHAMNOSUS GG 1 EACH CAP.SPRINK GT SCH ×2 (08:46→16:11)
[2018-06-28] MEDS: PHENYTOIN SUSP UDC 100 MG/4 ML UDC GT SCH ×2 (08:47→20:58)
[2018-06-28] MEDS: ASCORBIC ACID 500 MG TABLET GT SCH (08:47)
[2018-06-28] MEDS: LEVETIRACETAM SOL (5 ML) 100 MG/ML UDC GT SCH ×2 (08:47→21:02)
[2018-06-28] MEDS: PANTOPRAZOLE 40 MG/PACK PACK NG SCH ×2 (08:47→16:11)
[2018-06-28] MEDS: FERROUS SULFATE UDC 300 MG/5 ML UDC GT SCH ×3 (08:47→16:11)
[2018-06-28] MEDS: GLUCERNA 1.2 1,000 ML BOTTLE JT PRN (10:22)
[2018-06-28] MEDS: INSULIN REGULAR, HUMAN 100 UNIT/ML 3 ML VIAL SQ PRN (17:36)
--- NOTE | 2018-06-28 19:11 | NUR ---
RT NOTE: RECEIVED TRACH PT ON [facility] VENT WITH NOTED SETTINGS PER MD ORDERS. CLAIMS SUPERVISOR DONE. VENT ALARMS AUDIBLE AND PLUGGED INTO RED OUTLET. TRACH IS PATENT AND SECURED. SUCTION DONE PRN. NO RESP DISTRESS NOTED AT THIS TIME. CLARE CRENSHAW AT [facility]. WILL CONT TO MONITOR PT. Addendum: 06/29/18 at 0509 by SUSAN PASCUAL RT Amended: Links added.
--- NOTE | 2018-06-28 19:32 | NUR ---
RN NOTES ENDORSED PATIENT FOR CONTINUITY OF CARE. NO ACUTE CHANGES WITHIN THE SHIFT. NOT ON ANY FORM OF DISTRESS ALL NURSING NEEDS ATTENDED AND MET. SAFETY MEASURES IN PLACE AT ALL TIMES
--- NOTE | 2018-06-28 19:45 | NUR ---
HOME CARE SCHEDULER NOTES, RECEIVED PATIENT IN BED, OBTUNDED, ON MECHANICAL VENTILATOR, TOLERATING SETTINGS WELL, WITH OPTIMA O2 SATURATION AT 100% AT THIS TIME, PLACED GT/JT, GT CLAMPED, WITH ONGOING GTF GLUCERNA 1.2@80 ML/HR INFUSING WELL AND PATIENT TOLERATING WELL, IV LINE ON THE R HAND AND MIDLINE TO THE UPPER ARM, PATENT AND PATENT, HOB ELEVATED. SAFETY MEASURES OBSERVED AND MAINTAINED, SUCTIONED AT THIS TIME, ASPIRATION AND SEIZURE PRECAUTION IN PLACED, DRY AND CLEAN, WILL CONTINUE TO MONITOR CLOSELY.
[2018-06-28] MEDS: INSULIN GLARGINE, 100 UNIT/ML CARTRIDGE SQ SCH (21:18)
[2018-06-29] VITALS (7 sets, daily range): BP systolic 90–116; BP diastolic 43–57
[2018-06-29] MEDS: BLOOD SUGAR DIAGNOSTIC 1 EACH STRIP IN SCH ×5 (00:01→23:45)
[2018-06-29] MEDS: GLUCERNA 1.2 1,000 ML BOTTLE JT PRN ×2 (00:24→14:37)
[2018-06-29] MEDS: ALBUTEROL FS 2.5 MG/3 ML VIAL.NEB NEB SCH ×4 (00:33→19:33)
[2018-06-29] MEDS: IPRATROPIUM NEB FS 0.5 MG/2.5 ML AMPUL.NEB IH SCH ×4 (00:33→19:33)
[2018-06-29] MEDS: METOCLOPRAMIDE HCL 10 MG TABLET GT SCH ×3 (04:04→21:43)
--- NOTE | 2018-06-29 06:27 | NUR ---
APPLICATION DBA CLOSING NOTES, PATIENT IN BED WITH EYES CLOSED AT THIS TIME, OBTUNDED, ON MECHANICAL VENTILATOR, TOLERATING SETTINGS WELL, WITH 100% O2 SAT LEVEL AT THIS TIME, PLACED GT/JT, GT CLAMPED, WITH ONGOING GTF GLUCERNA 1.2@80 ML/HR INFUSING WELL AND PATIENT TOLERATING WELL, IV LINE ON THE R HAND AND MIDLINE IN ANGELIQUE, PATENT AND INTACT HOB ELEVATED. SAFETY MEASURES OBSERVED AND MAINTAINED, SUCTIONED NEED IT, NO SIGNIFICANT CHANGE IN CONDITION THROUGHOUT THE NIGHT, ASPIRATION AND SEIZURE PRECAUTION IN PLACED, DRY AND CLEAN, WILL ENDORSE CONTINUITY OF CARE TO ONCOMING NURSE.
--- NOTE | 2018-06-29 07:10 | NUR ---
NETWORK SYSTEMS ANALYST OPENING NOTES, RECEIVED PATIENT IN BED, OBTUNDED, ON MECHANICAL VENTILATOR, TOLERATING SETTINGS WELL, WITH O2 SATURATION AT 100% AT THIS TIME, PLACED GT/JT, GT CLAMPED, WITH ONGOING GTF GLUCERNA 1.2@80 ML/HR INFUSING WELL AND PATIENT TOLERATING WELL, IV LINE ON THE R HAND AND MIDLINE TO THE UPPER ARM, INTACT AND PATENT, HOB ELEVATED. SAFETY MEASURES OBSERVED AND MAINTAINED. ASPIRATION AND SEIZURE PRECAUTION IN PLACE.WAITING FOR BIOPSY RESULT WILL CONTINUE TO MONITOR .
[2018-06-29] MEDS: PHENYTOIN SUSP UDC 100 MG/4 ML UDC GT SCH ×2 (08:09→21:43)
[2018-06-29] MEDS: FERROUS SULFATE UDC 300 MG/5 ML UDC GT SCH ×3 (08:10→16:05)
[2018-06-29] MEDS: LEVETIRACETAM SOL (5 ML) 100 MG/ML UDC GT SCH ×2 (08:10→21:43)
[2018-06-29] MEDS: PANTOPRAZOLE 40 MG/PACK PACK NG SCH ×2 (08:10→16:06)
[2018-06-29] MEDS: ASCORBIC ACID 500 MG TABLET GT SCH (08:10)
[2018-06-29] MEDS: DOCUSATE SODIUM LIQ 100 MG/10 ML UDC GT SCH ×2 (08:10→16:05)
[2018-06-29] MEDS: LACTOBACILLUS RHAMNOSUS GG 1 EACH CAP.SPRINK GT SCH ×2 (08:10→16:05)
--- NOTE | 2018-06-29 08:47 | NUR ---
RT RECD PT TRACHED INTACT AND SECURED ON MECH VENT DIEGO ORDERED SETTING ALARMS ON AND AUDIBLE BAG AND MASK AT HOB SX THICK YELLOW SECRETIONS NO RESP DISTRESS WILL CONT TO MONITOR
[2018-06-29] MEDS: IV 1/2NS 1000 ML 1,000 ML IV PRN ×2 (09:13→23:25)
--- NOTE | 2018-06-29 12:00 | NUR ---
TEST ENGINEERING INTERN NOTE SEEN BY DR.KASHANI ROBISON AT THIS TIME.WAITING FOR PATHOLOGY RESULT.
[2018-06-29] MEDS ORDERED: POTASSIUM CHLORIDE 20 MEQ TAB.PRT.SR PO ONE (16:35)
--- NOTE | 2018-06-29 18:52 | NUR ---
ADMINISTRATIVE OFFICE CLERK CLOSING NOTES, PATIENT IN BED, OBTUNDED, ON MECHANICAL VENTILATOR, TOLERATING SETTINGS WELL, WITH O2 SATURATION AT 98% AT THIS TIME, PLACED GT/JT, WITH ONGOING GTF GLUCERNA 1.2@80 ML/HR INFUSING WELL AND PATIENT TOLERATING WELL, IV LINE ON THE R HAND AND MIDLINE TO THE UPPER ARM, INTACT AND PATENT, HOB ELEVATED. SAFETY MEASURES OBSERVED AND MAINTAINED. ASPIRATION AND SEIZURE PRECAUTION IN PLACE.WILL ENDORSE TO PM NURSE FOR LAUREN.
--- NOTE | 2018-06-29 20:09 | NUR ---
INTELLIGENCE OFFICER BASIC OPENING NOTES RECEIVED REPORT FROM GALDINO MALDONADO. PATIENT A/A/O X1 TO NAME, NON-VERBAL BUT RESPONDS TO VERBAL & TACTILE STIMULI. BREATHING EVEN & UNLABORED W/ TRACH INTACT & TOLERATING VENT SETTINGS AC 16, TV 550, FIO2 35%, PEEP 5. NO S/S OF RESPIRATORY DISTRESS. ON TELE W/ SINUS RHYTHM, HR 70. RIGHT UPPER ARM MIDLINE INTACT & PATENT W/ DRESSING CDI & IVF 1/2 NS INFUSING WELL @ 75 ML/HR. G-TUBE & J-TUBE PATENT & FLUSHING WELL. NO S/S OF PAIN OR DISCOMFORT @ THIS TIME. SAFETY MEASURES IN PLACE W/ SIDE RAILS UP & BED ALARM. HOB ELEVATED FOR ASPIRATION PRECAUTIONS. TURNED & REPOSITIONED FOR COMFORT. WILL CONTINUE TO MONITOR.
[2018-06-29] MEDS: INSULIN GLARGINE, 100 UNIT/ML CARTRIDGE SQ SCH (21:56)
[2018-06-29] MEDS: INSULIN REGULAR, HUMAN 100 UNIT/ML 3 ML VIAL SQ PRN (23:45)
[2018-06-30] VITALS (7 sets, daily range): BP systolic 95–131; BP diastolic 40–61
[2018-06-30] MEDS: ALBUTEROL FS 2.5 MG/3 ML VIAL.NEB NEB SCH ×4 (00:35→19:58)
[2018-06-30] MEDS: IPRATROPIUM NEB FS 0.5 MG/2.5 ML AMPUL.NEB IH SCH ×4 (00:35→19:58)
[2018-06-30] MEDS: METOCLOPRAMIDE HCL 10 MG TABLET GT SCH ×3 (05:44→20:36)
[2018-06-30] MEDS: BLOOD SUGAR DIAGNOSTIC 1 EACH STRIP IN SCH ×4 (05:49→23:08)
[2018-06-30] MEDS: INSULIN REGULAR, HUMAN 100 UNIT/ML 3 ML VIAL SQ PRN ×3 (05:50→23:09)
[2018-06-30 06:19] LABS: CALCIUM, SERUM 8.6 mg/dL (8.5-10.1); CREATININE 2.8 mg/dL (0.6-1.3); MAGNESIUM 2.2 mg/dL (1.8-2.4); POTASSIUM 3.8 mmol/L (3.5-5.1)
[2018-06-30 06:26] LABS: BASOPHILS % (AUTO) 0.2 % (0.0-2.0); EOSINOPHILS % (AUTO) 1.8 % (0.0-6.0); HEMATOCRIT 24 % (39-51); HEMOGLOBIN 7.6 g/dL (13.5-17.5); LYMPHOCYTES # (AUTO) 0.7 /CMM (0.8-4.8); MEAN CORPUSCULAR HGB CONC 32 g/dl (31.0-36.0); MEAN CORPUSCULAR VOLUME 94 fL (80-96); MONOCYTES # (AUTO) 0.8 /CMM (0.1-1.30); MONOCYTES % (AUTO) 7.2 % (2.0-12.0); NEUTROPHILS # (AUTO) 8.8 /CMM (1.8-8.9); NEUTROPHILS % (AUTO) 83.8 % (43.0-81.0); PLATELET COUNT (AUTO) 358 /CMM (150-450); RED BLOOD CELL COUNT(AUTO) 2.55 MIL/uL (4.5-6.0); WHITE BLOOD COUNT (AUTO) 10.5 K/uL (4.3-11.0)
[2018-06-30] MEDS: LEVETIRACETAM SOL (5 ML) 100 MG/ML UDC GT SCH ×2 (08:18→20:36)
[2018-06-30] MEDS: FERROUS SULFATE UDC 300 MG/5 ML UDC GT SCH ×3 (08:18→16:13)
[2018-06-30] MEDS: DOCUSATE SODIUM LIQ 100 MG/10 ML UDC GT SCH ×2 (08:18→16:12)
[2018-06-30] MEDS: PHENYTOIN SUSP UDC 100 MG/4 ML UDC GT SCH ×2 (08:18→20:37)
[2018-06-30] MEDS: LACTOBACILLUS RHAMNOSUS GG 1 EACH CAP.SPRINK GT SCH ×2 (08:19→16:13)
[2018-06-30] MEDS: ASCORBIC ACID 500 MG TABLET GT SCH (08:19)
[2018-06-30] MEDS: PANTOPRAZOLE 40 MG/PACK PACK NG SCH ×2 (08:19→16:12)
--- NOTE | 2018-06-30 14:30 | NUR ---
RN NOTES PT RECEIVED ON BED, VENT/TRACH DEPENDENT, TOLEAING TF AT 80XCC/HR WELL , NO DISTRESS NOTED ,CONTINUE TO MONITOR .
[2018-06-30] MEDS: IV 1/2NS 1000 ML 1,000 ML IV PRN (15:02)
--- NOTE | 2018-06-30 16:04 | NUR ---
GREEN CHAIN OFFBEARER NOTES PATIENT REMAINED STABLE THROUGHOUT SHIFT. INFORMED DR TRACEY OF CLOGGED J-TUBE & PER DR TRACEY, KVNG TO USE G-TUBE FOR FEEDING. ALL NEEDS MET.
--- NOTE | 2018-06-30 18:21 | NUR ---
RN NOTES NO SIGNIFICANT CHANGES NOTED ON THIS SHIFT, WILL ENDOSE TO BEER BREWER FOR CONTINUITY OF CARE .
[2018-06-30] MEDS: INSULIN GLARGINE, 100 UNIT/ML CARTRIDGE SQ SCH (22:00)
[2018-06-30] MEDS: GLUCERNA 1.2 1,000 ML BOTTLE JT PRN (22:28)
[2018-07-01] VITALS (7 sets, daily range): BP systolic 81–119; BP diastolic 34–65
[2018-07-01] MEDS: IPRATROPIUM NEB FS 0.5 MG/2.5 ML AMPUL.NEB IH SCH ×4 (01:04→19:53)
[2018-07-01] MEDS: ALBUTEROL FS 2.5 MG/3 ML VIAL.NEB NEB SCH ×4 (01:04→19:54)
[2018-07-01] MEDS: IV 1/2NS 1000 ML 1,000 ML IV PRN ×2 (03:20→17:46)
[2018-07-01] MEDS: ACETAMINOPHEN 650 MG/20.3 ML UDC GT PRN (03:56)
[2018-07-01] MEDS: METOCLOPRAMIDE HCL 10 MG TABLET GT SCH ×3 (03:56→20:37)
[2018-07-01] MEDS: BLOOD SUGAR DIAGNOSTIC 1 EACH STRIP IN SCH ×4 (05:13→23:14)
[2018-07-01] MEDS: INSULIN REGULAR, HUMAN 100 UNIT/ML 3 ML VIAL SQ PRN (05:15)
--- NOTE | 2018-07-01 07:00 | NUR ---
OPTOMETRY PROFESSOR OPENING NOTES, RECEIVED PATIENT IN BED, OBTUNDED, ON MECHANICAL VENTILATOR, TOLERATING SETTINGS WELL, WITH O2 SATURATION AT 100% AT THIS TIME, PLACED GT/JT, GT CLAMPED, WITH ONGOING GTF GLUCERNA 1.2@80 ML/HR INFUSING WELL AND PATIENT TOLERATING WELL, IV LINE ON THE R HAND AND MIDLINE TO THE UPPER ARM, INTACT AND PATENT, HOB ELEVATED. SAFETY MEASURES OBSERVED AND MAINTAINED. ASPIRATION AND SEIZURE PRECAUTION IN PLACE. WILL CONTINUE TO MONITOR .
[2018-07-01] MEDS: DOCUSATE SODIUM LIQ 100 MG/10 ML UDC GT SCH ×2 (09:12→17:51)
[2018-07-01] MEDS: LEVETIRACETAM SOL (5 ML) 100 MG/ML UDC GT SCH ×2 (09:12→20:37)
[2018-07-01] MEDS: FERROUS SULFATE UDC 300 MG/5 ML UDC GT SCH ×3 (09:13→17:51)
[2018-07-01] MEDS: PHENYTOIN SUSP UDC 100 MG/4 ML UDC GT SCH ×2 (09:17→20:36)
[2018-07-01] MEDS: PANTOPRAZOLE 40 MG/PACK PACK NG SCH ×2 (09:18→17:51)
[2018-07-01] MEDS: ASCORBIC ACID 500 MG TABLET GT SCH (09:18)
[2018-07-01] MEDS: LACTOBACILLUS RHAMNOSUS GG 1 EACH CAP.SPRINK GT SCH ×2 (09:18→17:51)
[2018-07-01] MEDS: MEROPENEM 1 G in IV NS 0.9% 100 ML IV SCH (14:33)
--- NOTE | 2018-07-01 15:55 | NUR ---
MEXICAN FOOD MAKER NOTES NOTIFIED FELIX LINCOLN, ABOUT CLOGGED JT SINCE YESTERDAY. AWAITING ORDERS.
--- NOTE | 2018-07-01 17:00 | NUR ---
TUBULAR SPLITTING MACHINE TENDER NOTES DR. TRACEY WILL SEE PT TOMORROW REGARDING JTUBE.
[2018-07-01] MEDS: GLUCERNA 1.2 1,000 ML BOTTLE JT PRN (17:46)
--- NOTE | 2018-07-01 19:00 | NUR ---
MANAGER MARKET DEVELOPMENT CLOSING NOTES, RECEIVED PATIENT IN BED, OBTUNDED, ON MECHANICAL VENTILATOR, TOLERATING SETTINGS WELL, WITH O2 SATURATION AT 100% AT THIS TIME, PLACED GT/JT, GT CLAMPED, WITH ONGOING GTF GLUCERNA 1.2@80 ML/HR INFUSING WELL AND PATIENT TOLERATING WELL, IV LINE ON THE R HAND AND MIDLINE TO THE UPPER ARM, INTACT AND PATENT, HOB ELEVATED. SAFETY MEASURES OBSERVED AND MAINTAINED. ASPIRATION AND SEIZURE PRECAUTION IN PLACE. ENDORSED TO SOFTWARE TEST AUTOMATION ENGINEER NURSE FOR LAUREN.
--- NOTE | 2018-07-01 20:00 | NUR ---
WEBSPHERE COMMERCE DEVELOPER NOTES RECEIVED PT ON BED. A/O X 1. [facility] SATUR[facility] WELL. ON TELE MONITOR SR. IV ACCESS ON ANGELIQUE MIDLINE PATENT AND INTACT WITH 1/2 NS @ 75CC/HR. GTUBE FEEDING @ 80CC/HR HOLD DUE TO RESIDUAL OF MORE THAN 200CC. CHARGE NURSE INFORMED. HEAD OF BED ELEVATED. SIDE RAILS UP. CALL LIGHT WITHIN REACH. BED ALARM ON. WILL CONTINUE TO MONITOR PT CLOSELY.
--- NOTE | 2018-07-01 20:30 | NUR ---
FERTILIZER MIXER AND RN ARE CLEANING THE PT. UPON CLEANING THE PT , FERTILIZER MIXER AND RN NOTICED DEEP TISSUE INJURY IN THE RIGHT HEEL. PROGRESS NOTES WAS CHECKED IF IT WAS AN OLD ONE, NO DTI UPON ADMISSION. DEEP TISSUE INJURY PROTECTED WITH MEPILEX . ORDERED WOUND CARE CONSULT FOR DEEP TISSUE INJURY. CHARGE NURSE INFORMED. AGENT LICENSING CLERK INFORMED. INCIDENT REPORT DONE UNIQUE ID: [id number]
--- NOTE | 2018-07-01 21:08 | NUR ---
CHORUS DANCER NOTES RESIDUAL OF MORE THAN 200CC. HOLDING FEEDING FOR 2 HOURS.
[2018-07-01] MEDS: INSULIN GLARGINE, 100 UNIT/ML CARTRIDGE SQ SCH (22:00)
--- NOTE | 2018-07-01 23:17 | NUR ---
PIPE COVERING MOLDER NOTES RESIDUAL WITH GREENISH COLOR NOTED 200CC. CHARGED NURSE INFORMED. HOLDING FEEDING FOR NOW. WILL CONTINUE TO MONITOR RESIDUAL CLOSELY.
--- NOTE | 2018-07-01 23:20 | NUR ---
SHIP LINER NOTES HOLDING LANTUS, PT GTUBE IS OFF DUE TO RESIDUAL MORE THAN 200CC. WILL MONITOR PT CLOSELY.
[2018-07-02] VITALS (16 sets, daily range): BP systolic 87–129; BP diastolic 6–68
[2018-07-02] MEDS: MEROPENEM 1 G in IV NS 0.9% 100 ML IV SCH ×2 (01:01→15:53)
--- NOTE | 2018-07-02 01:03 | NUR ---
RT NOTE PATIENT WAS RECEIVED ON CONTINUOUS VENT SUPPORT ON NOTED SETTINGS. HHN INLINE TREATMENT WAS GIVEN, NO ADVERSE REACTION NOTED. PRN SUCTION WAS DONE, TRACH TUBE PATENT AND SECURED. ALARMS ON AND AUDIBLE. WILL CONTINUE TO MONITOR PATIENT. Addendum: 07/02/18 at 0104 by DARCI SALAMANCA RT Amended: Links added.
[2018-07-02] MEDS: IPRATROPIUM NEB FS 0.5 MG/2.5 ML AMPUL.NEB IH SCH ×4 (01:25→19:31)
[2018-07-02] MEDS: ALBUTEROL FS 2.5 MG/3 ML VIAL.NEB NEB SCH ×4 (01:25→19:31)
[2018-07-02] MEDS: METOCLOPRAMIDE HCL 10 MG TABLET GT SCH ×4 (04:00→21:22)
--- NOTE | 2018-07-02 04:10 | NUR ---
OPERATIONS EXPERT NOTES GREEN RESIDUAL NOTED IN GTUBE. MED PO NOT GIVEN. CHARGE NURSE INFORMED. WILL MONITOR PT CLOSELY.
[2018-07-02] MEDS: IV 1/2NS 1000 ML 1,000 ML IV PRN (04:46)
[2018-07-02] MEDS: BLOOD SUGAR DIAGNOSTIC 1 EACH STRIP IN SCH ×3 (05:04→18:23)
--- NOTE | 2018-07-02 07:10 | NUR ---
WATER PUMP INSTALLER OPENING NOTES, RECEIVED PATIENT IN BED, OBTUNDED, ON MECHANICAL VENTILATOR, TOLERATING SETTINGS WELL, WITH O2 SATURATION AT 100% AT THIS TIME, , GTF ONGOING,J TUBE IS NOT WORKING PROPERLY WITH ONGOING GTF GLUCERNA 1.2@80 ML/HR INFUSING WELL AND PATIENT TOLERATING WELL, IV LINE ON THE R HAND AND MIDLINE TO THE UPPER ARM, INTACT AND PATENT, HOB ELEVATED. SAFETY MEASURES OBSERVED AND MAINTAINED. ASPIRATION AND SEIZURE PRECAUTION IN PLACE.ON TELE MONITOR SR 65 WILL CONTINUE TO MONITOR .
[2018-07-02 07:17] LABS: BASOPHILS % (AUTO) 0.9 % (0.0-2.0); EOSINOPHILS % (AUTO) 2.8 % (0.0-6.0); LYMPHOCYTES # (AUTO) 0.8 /CMM (0.8-4.8); MEAN CORPUSCULAR HGB CONC 33 g/dl (31.0-36.0); MEAN CORPUSCULAR VOLUME 93 fL (80-96); MONOCYTES # (AUTO) 0.8 /CMM (0.1-1.30); MONOCYTES % (AUTO) 17.4 % (2.0-12.0); NEUTROPHILS # (AUTO) 2.9 /CMM (1.8-8.9); NEUTROPHILS % (AUTO) 61.9 % (43.0-81.0); PLATELET COUNT (AUTO) 330 /CMM (150-450); RED BLOOD CELL COUNT(AUTO) 2.12 MIL/uL (4.5-6.0); WHITE BLOOD COUNT (AUTO) 4.6 K/uL (4.3-11.0)
--- NOTE | 2018-07-02 07:25 | NUR ---
STRIP CATCHER NOTES NO ACUTE CHANGES NOTED DURING THE SHIFT. PROVIDED COMFORT AND SAFETY. WILL ENDORSE TO THE AM NURSE FOR CONTINUITY OF CARE.
[2018-07-02 07:39] LABS: CALCIUM, SERUM 8.4 mg/dL (8.5-10.1); CREATININE 2.8 mg/dL (0.6-1.3); PHOSPHORUS 3.2 mg/dL (2.5-4.9)
[2018-07-02 07:47] LABS: HEMATOCRIT 20 % (39-51)
[2018-07-02 07:49] LABS: HEMOGLOBIN 6.5 g/dL (13.5-17.5)
[2018-07-02] MEDS: FERROUS SULFATE UDC 300 MG/5 ML UDC GT SCH ×3 (08:26→16:40)
[2018-07-02] MEDS: PHENYTOIN SUSP UDC 100 MG/4 ML UDC GT SCH ×2 (08:26→21:22)
[2018-07-02] MEDS: PANTOPRAZOLE 40 MG/PACK PACK NG SCH ×2 (08:26→16:40)
[2018-07-02] MEDS: ASCORBIC ACID 500 MG TABLET GT SCH (08:26)
[2018-07-02] MEDS: LACTOBACILLUS RHAMNOSUS GG 1 EACH CAP.SPRINK GT SCH ×2 (08:26→16:40)
[2018-07-02] MEDS: DOCUSATE SODIUM LIQ 100 MG/10 ML UDC GT SCH ×2 (08:26→16:40)
[2018-07-02] MEDS: LEVETIRACETAM SOL (5 ML) 100 MG/ML UDC GT SCH ×2 (08:26→21:22)
--- NOTE | 2018-07-02 09:50 | NUR ---
MANUFACTURING WORKER NOTE GOT NEW ORDER FROM FOR 1 UNIT PRB TRANSFUSION FOR LOW H/H.CALL MADE TO BROTHER VALENTINA CLYDE ,GOT CONSENT FOR BLOOD TRANSFUSION.WILL CONTINUE TO MONITOR
--- NOTE | 2018-07-02 11:00 | NUR ---
DETECTIVE PRECINCT NOTE SEEN Y FROM GI,UPDATED PATIENT CONDITION,NOTIFIED THAT J TUBE IS CLOGGED AND GT HAS RESIDUAL >100ML.ASKED TO [facility] TO MAKE SURE THAT THEY CAN CHANGE THE J TUBE.CALL MADE TO RADIOLOGY THEY TOD THEY DONT DO IT IN THIS HOSPITAL.HE WANT TO KNOW ABOUT PATHOLOGY RESULT,KIERSTEN MADE TO LAB ,TOLD THAT PATHOLOGY RESULT NOT OUT YET.WILL BE BACK ON WEDNESDAY. MADE AWARE.RECOMMENDED TO START ON TPN WHILE CHANGING J TUBE.SEEN BY MADE AWARE.OK TO START FEEDING IN G TUBE IN LOW RATE TOLERATED.REQUESTED TO CALL SHENG BECKER .LEFT MESSAGE TO DR.SAM PATRICIO MADE AWARE ABOUT PATIENT.RECOMMENDATION FROM INFORMED .WILL CONTINUE TO MONITOR.
[2018-07-02 11:45] LABS: BAND % (MANUAL) 1 % (0.0-5.0); EOSINOPHILS % (MANUAL) 3 % (0-4); LYMPHOCYTES % (MANUAL) 15 % (16-48); MONOCYTES % (MANUAL) 17 % (0-11.0); MYELOCYTES % 2 % (0-0); NEUTROPHILS % (MANUAL) 62 (42-76)
--- NOTE | 2018-07-02 17:00 | NUR ---
CLOTH EXAMINER NOTE 1 UNIT PRBC INFUSED.NO REACTION NOTED.VITAL SIGNS STABLE.
--- NOTE | 2018-07-02 18:49 | NUR ---
CEMENT TESTER ASSISTANT CLOSING NOTES, PATIENT IN BED, OBTUNDED, ON MECHANICAL VENTILATOR, TOLERATING SETTINGS WELL, WITH O2 SATURATION AT 100% AT THIS TIME, , GTF ONGOING,J TUBE IS NOT WORKING PROPERLY WITH ONGOING GTF GLUCERNA . IV LINE ON THE R HAND AND MIDLINE TO THE UPPER ARM, INTACT AND PATENT, HOB ELEVATED. SAFETY MEASURES OBSERVED AND MAINTAINED. ASPIRATION AND SEIZURE PRECAUTION IN PLACE.ON TELE MONITOR SR 62.AWAITING FOR DR.SAM PATRICIO TO SEE THE PATIENT. WILL ENDORSE TO PM NURSE FOR LAUREN.
--- NOTE | 2018-07-02 19:20 | NUR ---
LITHOGRAPHERS PRINTER OPENING NOTES Received patient on bed, responsive to pain stimuli. General pitting edema noted. With R heel DTI noted. With patent ANGELIQUE midline with 1/2NS infusing well @ 75ml/hr as ordered. With patent PEG G-tube noted. With PEG J-tube, non-patent. On vent with portex #9, AC 16, TV 500. FiO2 35% PEEP 5, patient tolerating well, saturating well 100%. With minimal thick yellow secretions noted, suctioned regularly and PRN. No discomfort noted at this time. Kept on bed clean, dry and comfortable. Will continue to monitor accordingly.
--- NOTE | 2018-07-02 19:56 | NUR ---
RT NOTE: RECEIVED TRACH PT ON [facility] VENT WITH NOTED SETTINGS PER MD ORDERS. HAT BODY INSPECTOR DONE. VENT ALARMS AUDIBLE AND PLUGGED INTO RED OUTLET. TRACH IS PATENT AND SECURED. SUCTION DONE PRN. NO RESP DISTRESS NOTED AT THIS TIME. CLARE CRENSHAW AT [facility]. WILL CONT TO MONITOR PT. Addendum: 07/02/18 at 6 by ANG MENJIVAR RT Amended: Links added.
[2018-07-02] MEDS: INSULIN GLARGINE, 100 UNIT/ML CARTRIDGE SQ SCH (22:00)
--- NOTE | 2018-07-02 22:16 | NUR ---
RN NOTES Patient's BS - 99mg/dl. Held Lantus at this time. CN made aware. Will continue to monitor patient accordingly.
[2018-07-03] VITALS: BP 92/45
[2018-07-03] MEDS: BLOOD SUGAR DIAGNOSTIC 1 EACH STRIP IN SCH ×4 (00:11→17:55)
[2018-07-03] MEDS: IV 1/2NS 1000 ML 1,000 ML IV PRN ×2 (00:26→17:06)
[2018-07-03] MEDS: IPRATROPIUM NEB FS 0.5 MG/2.5 ML AMPUL.NEB IH SCH ×4 (01:14→19:24)
[2018-07-03] MEDS: ALBUTEROL FS 2.5 MG/3 ML VIAL.NEB NEB SCH ×4 (01:14→19:24)
[2018-07-03] MEDS: MEROPENEM 1 G in IV NS 0.9% 100 ML IV SCH ×2 (02:21→15:00)
[2018-07-03 04:00] VITALS: BP 94/41
[2018-07-03] MEDS: METOCLOPRAMIDE HCL 10 MG TABLET GT SCH ×3 (04:15→20:58)
--- NOTE | 2018-07-03 06:56 | NUR ---
RN CLOSING NOTES Patient asleep on bed, with patent PEG Gttube with Glucerna 1.2 infusing well @ 30nl/hr tolerated well. NO n/v, abdomen soft, nontender, residual 100ml. [facility], tolerating well, no SOB/respiratory distress noted, saturating well. suctioned regularly and PRN. Afebrile throughout the shift, no new unusualities noted. Total urine output 300ml clear yellow plus x3 diaper. Endorsed to the next shift. Addendum: 07/03/18 at 0703 by DARCI TORRES RN On tele, with SR noted. Pathology report in, accessed by the CN. Endorsed to the next shift.
--- NOTE | 2018-07-03 07:20 | NUR ---
OIL PIPE INSPECTOR OPENING NOTES PATIENT IN BED, OBTUNDED, ON MECHANICAL VENTILATOR, TOLERATING SETTINGS WELL, O2 SATURATION AT 99% AT THIS TIME, ON TELE SR WITH HR 60S, J TUBE IS NOT WORKING PROPERLY, GTUBE IN PLACE AND SITE INTACT WITH ONGOING GTF GLUCERNA 1.2 AT 30ML/HR. IV LINE ON THE R HAND AND MIDLINE TO THE UPPER ARM, CLEAN, DRY, AND PATENT, HOB ELEVATED. BED LOCKED AND IN LOWEST POSITION. CALL LIGHT WITHIN REACH. ASPIRATION AND SEIZURE PRECAUTION IN PLACE. WILL CONTINUE TO MONITOR THROUGHOUT SHIFT.
[2018-07-03 08:00] VITALS: BP_SYST 106; BP_SYST 107; BP_DIAS 59; BP_DIAS 60
[2018-07-03] MEDS: DOCUSATE SODIUM LIQ 100 MG/10 ML UDC GT SCH ×2 (09:54→17:05)
[2018-07-03] MEDS: PHENYTOIN SUSP UDC 100 MG/4 ML UDC GT SCH ×2 (09:54→20:58)
[2018-07-03] MEDS: LEVETIRACETAM SOL (5 ML) 100 MG/ML UDC GT SCH ×2 (09:54→20:58)
[2018-07-03] MEDS: PANTOPRAZOLE 40 MG/PACK PACK NG SCH ×2 (09:54→17:05)
[2018-07-03] MEDS: LACTOBACILLUS RHAMNOSUS GG 1 EACH CAP.SPRINK GT SCH ×2 (09:54→17:05)
[2018-07-03] MEDS: FERROUS SULFATE UDC 300 MG/5 ML UDC GT SCH ×3 (09:55→17:05)
[2018-07-03] MEDS: ASCORBIC ACID 500 MG TABLET GT SCH (09:55)
--- NOTE | 2018-07-03 10:00 | NUR ---
WOODENWARE ASSEMBLER NOTES HOLD GTUBE FEEDING PER DR. PUGA.
[2018-07-03 12:00] VITALS: BP 106/59
[2018-07-03 16:00] VITALS: BP 106/61
--- NOTE | 2018-07-03 19:00 | NUR ---
FACULTY RESEARCH ASSISTANT CLOSING NOTES PATIENT IN BED, OBTUNDED, ON MECHANICAL VENTILATOR, TOLERATING SETTINGS WELL, O2 SATURATION AT 99% AT THIS TIME, ON TELE SR WITH HR 60S, J TUBE IS NOT WORKING PROPERLY, GTUBE IN PLACE AND SITE INTACT. IV LINE ON THE R HAND AND MIDLINE TO THE UPPER ARM, CLEAN, DRY, AND PATENT, HOB ELEVATED. BED LOCKED AND IN LOWEST POSITION. CALL LIGHT WITHIN REACH. ASPIRATION AND SEIZURE PRECAUTION IN PLACE. ALL NEEDS MET. ENDORSED TO SPRING FITTER HELPER NURSE FOR LAUREN.
--- NOTE | 2018-07-03 19:45 | NUR ---
FARM MECHANIC OPENING NOTES RECEIVED PT IN BED, SLEEPING, RESPONSIVE TO TACTILE STIMULI, BREATHING EVEN AND UNLABORED ON VENT, P#9 AC 16 TV 500 FI02 35% PEEP [address]ATING. CONDOM CATH IN PLACE AND COLLECTING. ANGELIQUE MIDLINE 1/2 NS @75ML/HR. HOLDING GT FEEDING PER MD AHUJA FOR PROCEDURE TOMORROW. IN NO APPARENT DISTRESS OR DISCOMFORT, BED IN LOCKED POSITION, SIDE RAILS UP X4, WILL CONTINUE TO MONITOR.
[2018-07-03 20:00] VITALS: BP 96/35
[2018-07-03] MEDS: INSULIN GLARGINE, 100 UNIT/ML CARTRIDGE SQ SCH (22:00)
--- NOTE | 2018-07-03 22:04 | NUR ---
MALINA HELD, LAST BG 91, PT NPO AND WITH STOPPED FEEDING FOR JTUBE REPLACEMENT TOMORROW
[2018-07-04] VITALS (7 sets, daily range): BP systolic 96–145; BP diastolic 46–68
[2018-07-04] MEDS: BLOOD SUGAR DIAGNOSTIC 1 EACH STRIP IN SCH ×4 (00:18→17:08)
[2018-07-04] MEDS: ALBUTEROL FS 2.5 MG/3 ML VIAL.NEB NEB SCH ×4 (00:31→19:21)
[2018-07-04] MEDS: IPRATROPIUM NEB FS 0.5 MG/2.5 ML AMPUL.NEB IH SCH ×4 (00:31→19:21)
[2018-07-04] MEDS: MEROPENEM 1 G in IV NS 0.9% 100 ML IV SCH ×2 (02:36→13:04)
[2018-07-04] MEDS: METOCLOPRAMIDE HCL 10 MG TABLET GT SCH ×3 (04:27→20:41)
[2018-07-04 06:16] LABS: BASOPHILS % (AUTO) 0.9 % (0.0-2.0); EOSINOPHILS % (AUTO) 3.6 % (0.0-6.0); HEMATOCRIT 26 % (39-51); HEMOGLOBIN 8.7 g/dL (13.5-17.5); LYMPHOCYTES % (AUTO) 19.9 % (20.0-44.0); MEAN CORPUSCULAR HGB CONC 34 g/dl (31.0-36.0); MEAN CORPUSCULAR VOLUME 90 fL (80-96); MONOCYTES # (AUTO) 0.8 /CMM (0.1-1.30); MONOCYTES % (AUTO) 15.1 % (2.0-12.0); NEUTROPHILS % (AUTO) 60.5 % (43.0-81.0); PLATELET COUNT (AUTO) 385 /CMM (150-450); RED BLOOD CELL COUNT(AUTO) 2.85 MIL/uL (4.5-6.0)
--- NOTE | 2018-07-04 06:39 | NUR ---
THEATRE PROGRAM DIRECTOR CLOSING NOTES PT REMAINS IN BED, SLEEPING, RESPONSIVE TO TACTILE STIMULI, BREATHING EVEN AND UNLABORED ON VENT, P#9 AC 16 TV 500 FI02 35% PEEP 5 AND TOLERATING. ANGELIQUE MIDLINE 1/2 NS @75ML/HR. HOLDING GT FEEDING PER MD AHUJA FOR PROCEDURE AT 9AM. IN NO APPARENT DISTRESS OR DISCOMFORT, BED IN LOCKED POSITION, SIDE RAILS UP X4, WILL ENDORSE TO DAY NURSE FOR LAUREN
[2018-07-04 06:43] LABS: CALCIUM, SERUM 8.5 mg/dL (8.5-10.1); CREATININE 2.4 mg/dL (0.6-1.3); PHOSPHORUS 3.3 mg/dL (2.5-4.9); POTASSIUM 4.2 mmol/L (3.5-5.1)
--- NOTE | 2018-07-04 07:10 | NUR ---
RN OPENING NOTES PT OBTUNDED. NO APPARENT S/S OF PAIN, DISTRESS OR SOB AT THIS TIME. PT TELE MONITORED NSR. PT HAS RIGHT UPPER ARM MIDLINE RUNNING 1/2NS@ 75ML/HR. PT TOLERATING WELL. PT HAS A GTUBE WILL HAVE SX FOR JTUBE PLACEMENT. FEEDING AND MEDICATION ON HOLD UNTIL PLACEMENT. SAFETY PRECAUTIONS IN PLACE, BED IN LOWEST LOCKED POSITION, X2 SIDE RAILS UP AND CALL LIGHT WITHIN REACH WILL CONTINUE TO MONITOR.
--- NOTE | 2018-07-04 08:47 | NUR ---
WOUND CARE CONSULT: LIMITED ASSESSMENT FOCUSED ON HEELS DUE TO PT PREPARED FOR PROCEDURE AT THIS TIME. RT HEEL NOTED TO HAVE INTACT DEEP TISSUE INJURY. EDEMA NOTED TO EXTREMITIES. RECOMMENDATIONS MADE FOR SKIN PROTECTION AND WOUND CARE. DISCUSSED WITH NURSING STAFF. HEELS FLOATED ON PILLOWS. PT ON OSCAR ISOFLEX LOW AIRLOSS BED. WILL SEE PRN. MALLORY IN AGREEMENT WITH PLAN OF CARE. Addendum: 07/04/18 at 0849 by MANISHA HOLLAND WNDNU Amended: Links added.
--- NOTE | 2018-07-04 08:51 | NUR ---
RT NOTE RECEIVED PT MECHANICALLY VENTILATED VIA PORTEX 9 CUFFED TRACHEOSTOMY TUBE. CUFF INFLATED VIA BILINGUAL LEGAL ASSISTANT. TRACH TUBE MIDLINE AND SECURE. VENTILATOR SETTINGS PRESCRIBED. ALARMS SET PER PROTOCOL AND AUDIBLE. VENT PLUGGED IN TO RED OUTLET. AMBU BAG AT BED SIDE. NO DISTRESS NOTED AT MOMENT. Addendum: 07/04/18 at 0852 by ANDREAS SALAMANCA RT Amended: Links added.
[2018-07-04] MEDS: PHENYTOIN SUSP UDC 100 MG/4 ML UDC GT SCH ×2 (10:00→20:41)
[2018-07-04] MEDS: PANTOPRAZOLE 40 MG/PACK PACK NG SCH ×2 (10:00→17:09)
[2018-07-04] MEDS: DOCUSATE SODIUM LIQ 100 MG/10 ML UDC GT SCH ×2 (10:00→17:09)
[2018-07-04] MEDS: ASCORBIC ACID 500 MG TABLET GT SCH (10:00)
[2018-07-04] MEDS: LEVETIRACETAM SOL (5 ML) 100 MG/ML UDC GT SCH ×2 (10:00→20:41)
[2018-07-04] MEDS: FERROUS SULFATE UDC 300 MG/5 ML UDC GT SCH ×3 (10:00→17:09)
[2018-07-04] MEDS: LACTOBACILLUS RHAMNOSUS GG 1 EACH CAP.SPRINK GT SCH ×2 (10:00→17:09)
[2018-07-04] MEDS: GLUCERNA 1.2 1,000 ML BOTTLE JT PRN (11:42)
[2018-07-04] MEDS: IV 1/2NS 1000 ML 1,000 ML IV PRN (13:03)
--- NOTE | 2018-07-04 18:32 | NUR ---
RN CLOSING NOTES PT OBTUNDED. NO APPARENT S/S OF PAIN, DISTRESS OR SOB AT THIS TIME. PT TELE MONITORED NSR. PT HAS RIGHT UPPER ARM MIDLINE RUNNING 1/2NS@ 75ML/HR. PT TOLERATING WELL. PT HAS A GTUBE AND NEWLY PLACED JTUBE FEEDING CONTINUED. SAFETY PRECAUTIONS IN PLACE, BED IN LOWEST LOCKED POSITION, X2 SIDE RAILS UP AND CALL LIGHT WITHIN REACH WILL ENDORSE TO TELLER SUPERVISOR NURSE FOR CONTINUITY OF CARE.
--- NOTE | 2018-07-04 19:10 | NUR ---
TELE/RN INITIAL NOTES RECEIVED PT IN BED, VENT, NONVERBAL. WITH INTACT TRACH, TOLERATING VENT SETTINGS, SPO2 100%, NO SOB NOTED. SR ON TELE. HOB ELEVATED, WITH INTACT AND IN PLACED J/GTUBE, WITH ONGOING GTF GLUCERNA 80 ML/HR, TOLERATING WELL. WITH 10 MLS RESIDUAL. WITH ONGOING IVF 1/2 NS AT 75 ML/HR INFUSING WELL ON ANGELIQUE MIDLINE. RHAND G18 HEPLOCK INTACT AND PATENT. SAFETY MEASURES AND ASPIRATION PRECAUTION IN PLACED. ON CONTACT ISOLATION FOR ESBL URINE. WILL CONT TO MONITOR
[2018-07-04] MEDS: INSULIN GLARGINE, 100 UNIT/ML CARTRIDGE SQ SCH (21:50)
[2018-07-05] VITALS (9 sets, daily range): BP systolic 70–122; BP diastolic 32–62
[2018-07-05] MEDS: BLOOD SUGAR DIAGNOSTIC 1 EACH STRIP IN SCH ×5 (00:25→23:00)
[2018-07-05] MEDS: MEROPENEM 1 G in IV NS 0.9% 100 ML IV SCH ×2 (01:27→14:18)
[2018-07-05] MEDS: IPRATROPIUM NEB FS 0.5 MG/2.5 ML AMPUL.NEB IH SCH ×4 (01:41→19:58)
[2018-07-05] MEDS: ALBUTEROL FS 2.5 MG/3 ML VIAL.NEB NEB SCH ×4 (01:41→19:59)
[2018-07-05] MEDS: METOCLOPRAMIDE HCL 10 MG TABLET GT SCH ×3 (04:01→20:50)
[2018-07-05] MEDS: GLUCERNA 1.2 1,000 ML BOTTLE JT PRN (04:01)
[2018-07-05] MEDS: IV 1/2NS 1000 ML 1,000 ML IV PRN ×2 (04:02→09:12)
[2018-07-05 06:24] LABS: BASOPHILS % (AUTO) 0.6 % (0.0-2.0); EOSINOPHILS % (AUTO) 1.8 % (0.0-6.0); HEMATOCRIT 25 % (39-51); HEMOGLOBIN 8.6 g/dL (13.5-17.5); LYMPHOCYTES # (AUTO) 0.9 /CMM (0.8-4.8); LYMPHOCYTES % (AUTO) 15.9 % (20.0-44.0); MEAN CORPUSCULAR HGB CONC 34 g/dl (31.0-36.0); MEAN CORPUSCULAR VOLUME 89 fL (80-96); MONOCYTES # (AUTO) 0.6 /CMM (0.1-1.30); MONOCYTES % (AUTO) 11.4 % (2.0-12.0); NEUTROPHILS # (AUTO) 3.9 /CMM (1.8-8.9); NEUTROPHILS % (AUTO) 70.3 % (43.0-81.0); PLATELET COUNT (AUTO) 440 /CMM (150-450); RED BLOOD CELL COUNT(AUTO) 2.82 MIL/uL (4.5-6.0); WHITE BLOOD COUNT (AUTO) 5.6 K/uL (4.3-11.0)
[2018-07-05 06:38] LABS: ALBUMIN 1.9 g/dL (3.4-5.0); BILIRUBIN,TOTAL 0.2 mg/dL (0.2-1.0); CALCIUM, SERUM 8.3 mg/dL (8.5-10.1); CREATININE 2.2 mg/dL (0.6-1.3); MAGNESIUM 1.9 mg/dL (1.8-2.4); POTASSIUM 4.4 mmol/L (3.5-5.1); TOTAL PROTEIN, SERUM 6.2 g/dL (6.4-8.2)
--- NOTE | 2018-07-05 07:10 | NUR ---
RN OPENING NOTE RECEIVED PT IN BED, VENT, NONVERBAL. WITH INTACT TRACH, TOLERATING VENT SETTINGS, SPO2 100%, NO SOB NOTED. SR ON TELE. HOB ELEVATED, WITH INTACT AND IN PLACED J/GTUBE, WITH ONGOING GTF GLUCERNA 80 ML/HR, TOLERATING WELL. NO RESIDUAL. WITH ONGOING IVF 1/2 NS AT 75 ML/HR INFUSING WELL ON ANGELIQUE MIDLINE. RHAND G18 HEPLOCK INTACT AND PATENT. SAFETY MEASURES AND ASPIRATION PRECAUTION IN PLACED. ON CONTACT ISOLATION FOR ESBL URINE. WILL CONT TO MONITOR
--- NOTE | 2018-07-05 07:18 | NUR ---
RN NOTES PT IN STABLE CONDITION. NO ACUTE CHANGES THROUGHOUT SHIFT. ALL NEEDS ANTICIPATED. ENDORSED TO AM SHIFT RN FOR LAUREN
--- NOTE | 2018-07-05 08:20 | NUR ---
RN NOTE PATIENT'S MORNING TEMPERATURE WAS 100.3. ADMINISTERED TYLENOL VIA GT. AND IMPLEMENTED COLD PACKS AND COLD BED BATH. WILL CONT TO MONITOR.
[2018-07-05] MEDS ORDERED: MERO1VIA IV (08:57)
[2018-07-05] MEDS: ASCORBIC ACID 500 MG TABLET GT SCH (09:10)
[2018-07-05] MEDS: PANTOPRAZOLE 40 MG/PACK PACK NG SCH ×2 (09:11→18:40)
[2018-07-05] MEDS: PHENYTOIN SUSP UDC 100 MG/4 ML UDC GT SCH ×2 (09:11→20:50)
[2018-07-05] MEDS: DOCUSATE SODIUM LIQ 100 MG/10 ML UDC GT SCH ×2 (09:11→18:48)
[2018-07-05] MEDS: LEVETIRACETAM SOL (5 ML) 100 MG/ML UDC GT SCH ×2 (09:11→20:50)
[2018-07-05] MEDS: FERROUS SULFATE UDC 300 MG/5 ML UDC GT SCH ×3 (09:11→18:49)
[2018-07-05] MEDS: LACTOBACILLUS RHAMNOSUS GG 1 EACH CAP.SPRINK GT SCH ×2 (09:11→18:48)
[2018-07-05] MEDS: ACETAMINOPHEN 650 MG/20.3 ML UDC GT PRN (09:14)
--- NOTE | 2018-07-05 15:57 | NUR ---
D/C HELD ,NOTIFIED DR. ARMIJO,SBP 70,I LITER BOLUS NS GIVEN.
[2018-07-05] MEDS ORDERED: IV NS 0.9% 1,000 ML IV PRN (16:00)
--- NOTE | 2018-07-05 19:28 | NUR ---
ACREAGE REPORTER NOTES RECEIVED PT ON BED, A/O X [address] [facility] SATURATING WELL, NO RESPIRATORY DISTRESS NOTED. ON TELE MONITOR SR. GTUBE FEEDING @ 80CC/HR NO RESIDUAL NOTED. IV ACCESS ON ANGELIQUE MIDLINE 1/2 NS @75CC/HR, NO BLOOD RETURN NOTED. NOTIFIED WEB ANALYTICS DEVELOPER AND CHARGE NURSE FOR MIDLINE REINSERTION. HEAD OF BED ELEVATED. SIDE RAILS UP. CALL LIGHT WITHIN REACH. BED ALARM ON. WILL CONTINUE TO MONITOR PT CLOSELY.
--- NOTE | 2018-07-05 19:30 | NUR ---
RN CLOSING NOTE PT REMAINS IN BED, SLEEPING, RESPONSIVE TO TACTILE STIMULI, BREATHING EVEN AND UNLABORED ON VENT, P#9 AC 16 TV 500 FI02 35% PEEP 5 AND TOLERATING. ANGELIQUE MIDLINE 1/2 NS @75ML/HR. GT FEEDING AT 80 CC/HR TOLERATING WELL. NO RESIDUAL. IN NO APPARENT DISTRESS OR DISCOMFORT. WAS GIVEN IV NS BOLUS DUE TO HYPOTENSION. BLOOD PRESSURE WNL WHAT THE MD WANTS. (SBP >90). ALL MEDS ADMINISTERED. BED IN LOCKED POSITION, SIDE RAILS UP X4, WILL ENDORSE TO NOC NURSE FOR LAUREN
--- NOTE | 2018-07-05 20:07 | NUR ---
OFFICE CASHIER NOTES MIDLINE NOT WORKING, CHARGE NURSE AND LADLE REPAIRER INFORMED. MIDLINE NURSE AT BEDSIDE.
[2018-07-05] MEDS: INSULIN GLARGINE, 100 UNIT/ML CARTRIDGE SQ SCH (22:00)
[2018-07-06] VITALS (7 sets, daily range): BP systolic 103–122; BP diastolic 53–70
[2018-07-06] MEDS: MEROPENEM 1 G in IV NS 0.9% 100 ML IV SCH ×2 (01:01→14:13)
[2018-07-06] MEDS: IPRATROPIUM NEB FS 0.5 MG/2.5 ML AMPUL.NEB IH SCH ×4 (01:44→20:00)
[2018-07-06] MEDS: ALBUTEROL FS 2.5 MG/3 ML VIAL.NEB NEB SCH ×4 (01:44→20:00)
[2018-07-06] MEDS: GLUCERNA 1.2 1,000 ML BOTTLE JT PRN ×2 (03:49→18:44)
[2018-07-06] MEDS: METOCLOPRAMIDE HCL 10 MG TABLET GT SCH ×3 (04:02→21:08)
[2018-07-06] MEDS: BLOOD SUGAR DIAGNOSTIC 1 EACH STRIP IN SCH ×3 (05:26→17:37)
[2018-07-06] MEDS: INSULIN REGULAR, HUMAN 100 UNIT/ML 3 ML VIAL SQ PRN (05:27)
[2018-07-06] MEDS: IV 1/2NS 1000 ML 1,000 ML IV PRN ×2 (06:05→21:12)
[2018-07-06 06:24] LABS: BASOPHILS # (AUTO) 0.1 /CMM (0.0-0.2); BASOPHILS % (AUTO) 0.6 % (0.0-2.0); EOSINOPHILS % (AUTO) 0.4 % (0.0-6.0); HEMATOCRIT 23 % (39-51); HEMOGLOBIN 7.6 g/dL (13.5-17.5); LYMPHOCYTES # (AUTO) 1.2 /CMM (0.8-4.8); LYMPHOCYTES % (AUTO) 13.2 % (20.0-44.0); MEAN CORPUSCULAR HGB CONC 33 g/dl (31.0-36.0); MEAN CORPUSCULAR VOLUME 90 fL (80-96); MONOCYTES # (AUTO) 1.6 /CMM (0.1-1.30); MONOCYTES % (AUTO) 17.4 % (2.0-12.0); NEUTROPHILS # (AUTO) 6.5 /CMM (1.8-8.9); NEUTROPHILS % (AUTO) 68.4 % (43.0-81.0); PLATELET COUNT (AUTO) 333 /CMM (150-450); RED BLOOD CELL COUNT(AUTO) 2.52 MIL/uL (4.5-6.0); WHITE BLOOD COUNT (AUTO) 9.4 K/uL (4.3-11.0)
[2018-07-06 06:37] LABS: ALBUMIN 1.9 g/dL (3.4-5.0); BILIRUBIN,TOTAL 0.2 mg/dL (0.2-1.0); CALCIUM, SERUM 7.9 mg/dL (8.5-10.1); CREATININE 2.5 mg/dL (0.6-1.3); MAGNESIUM 1.9 mg/dL (1.8-2.4); PHOSPHORUS 2.6 mg/dL (2.5-4.9); POTASSIUM 4.4 mmol/L (3.5-5.1)
--- NOTE | 2018-07-06 06:40 | NUR ---
FLORICULTURIST NOTES NO ACUTE CHANGES NOTED DURING THE SHIFT. PROVIDED COMFORT AND SAFETY. DUE MEDS GIVEN. BLOOD PRESSURE WNL. WILL ENDORSE TO THE AM NURSE FOR CONTINUITY OF CARE.
[2018-07-06 09:00] LABS: EOSINOPHILS % (MANUAL) 1 % (0-4); LYMPHOCYTES % (MANUAL) 18 % (16-48); MONOCYTES % (MANUAL) 10 % (0-11.0); NEUTROPHILS % (MANUAL) 71 (42-76)
[2018-07-06] MEDS: PHENYTOIN SUSP UDC 100 MG/4 ML UDC GT SCH ×2 (09:34→21:08)
[2018-07-06] MEDS: LEVETIRACETAM SOL (5 ML) 100 MG/ML UDC GT SCH ×2 (09:34→21:08)
[2018-07-06] MEDS: DOCUSATE SODIUM LIQ 100 MG/10 ML UDC GT SCH ×2 (09:34→17:37)
[2018-07-06] MEDS: ASCORBIC ACID 500 MG TABLET GT SCH (09:35)
[2018-07-06] MEDS: FERROUS SULFATE UDC 300 MG/5 ML UDC GT SCH ×3 (09:35→17:37)
[2018-07-06] MEDS: PANTOPRAZOLE 40 MG/PACK PACK NG SCH ×2 (09:35→17:37)
[2018-07-06] MEDS: LACTOBACILLUS RHAMNOSUS GG 1 EACH CAP.SPRINK GT SCH ×2 (09:35→17:37)
--- NOTE | 2018-07-06 09:46 | NUR ---
RT NOTE RECEIVED PT MECHANICALLY VENTILATED VIA PORTEX 9 CUFFED TRACHEOSTOMY TUBE. BILATERAL CHEST RISE NOTED. RONCARLOS HEARD UPON AUSCULTATION. SMALL THICK PALE YELLOW SECRETIONS FOUND UPON SUCTION. CUFF INFLATED VIA USER SUPPORT ANALYST. TRACH TUBE MIDLINE AND SECURE. VENTILATOR SETTINGS PRESCRIBED. ALARMS SET PER PROTOCOL AND AUDIBLE. VENT PLUGGED IN TO RED OUTLET. AMBU BAG AT BED SIDE. NO DISTRESS NOTED AT MOMENT. Addendum: 07/06/18 at 0949 by ANDREAS SALAMANCA RT Amended: Links added.
--- NOTE | 2018-07-06 20:15 | NUR ---
DANCE STUDIO MANAGER OPENING NOTES RECEIVED REPORT FROM CARLI Pool RN. PATIENT OBTUNDED BUT RESPONDS TO VERBAL & TACTILE STIMULI. BREATHING EVEN & UNLABORED W/ TRACH INTACT & TOLERATING VENT SETTINGS AC 16, TV 550, FIO2 35%, PEEP 5. NO S/S OF RESPIRATORY DISTRESS. ON TELE W/ SINUS RHYTHM, HR 64. LEFT UPPER ARM MIDLINE INTACT & PATENT W/ DRESSING CDI & IVF 1/2 NS INFUSING WELL @ 75 ML/HR. G-TUBE & J-TUBE PATENT & FLUSHING WELL. GTF RUNNING @ 80 ML/HR W/ MINIMAL RESIDUAL NOTED @ THIS TIME. NO S/S OF PAIN OR DISCOMFORT. SAFETY MEASURES IN PLACE W/ SIDE RAILS UP & BED ALARM. HOB ELEVATED FOR ASPIRATION PRECAUTIONS. TURNED & REPOSITIONED FOR COMFORT. WILL CONTINUE TO MONITOR.
--- NOTE | 2018-07-06 20:19 | NUR ---
RT RECEIVED PT MECHANICALLY VENTILATED VIA PORTEX 9 CUFFED TRACHEOSTOMY TUBE. CUFF INFLATED VIA TYPIST. TRACH TUBE PATENT AND SECURE. VENTILATOR SETTINGS ORDERED. ALARMS SET PER PROTOCOL AND AUDIBLE. VENT PLUGGED IN TO RED OUTLET. AMBU BAG AT BED SIDE. NO SOB, NO RESPIRATORY DISTRESS NOTED AT THIS TIME. WILL CONTINUE TO MONITOR. Addendum: 07/06/18 at 2020 by MARIA DOLORES SHELL RT Amended: Links added.
[2018-07-06] MEDS: INSULIN GLARGINE, 100 UNIT/ML CARTRIDGE SQ SCH (21:24)
[2018-07-07] VITALS: BP 99/51
[2018-07-07] MEDS: BLOOD SUGAR DIAGNOSTIC 1 EACH STRIP IN SCH ×4 (00:15→17:44)
[2018-07-07] MEDS: INSULIN REGULAR, HUMAN 100 UNIT/ML 3 ML VIAL SQ PRN ×2 (00:16→06:54)
[2018-07-07] MEDS: IPRATROPIUM NEB FS 0.5 MG/2.5 ML AMPUL.NEB IH SCH ×3 (01:07→13:46)
[2018-07-07] MEDS: ALBUTEROL FS 2.5 MG/3 ML VIAL.NEB NEB SCH ×3 (01:07→13:46)
[2018-07-07] MEDS: MEROPENEM 1 G in IV NS 0.9% 100 ML IV SCH ×2 (02:05→15:08)
[2018-07-07 04:00] VITALS: BP 110/72
[2018-07-07] MEDS: METOCLOPRAMIDE HCL 10 MG TABLET GT SCH ×2 (05:04→12:23)
[2018-07-07 05:17] VITALS: BP 110/72
[2018-07-07 06:30] LABS: BASOPHILS # (AUTO) 0.1 /CMM (0.0-0.2); EOSINOPHILS % (AUTO) 2.4 % (0.0-6.0); HEMATOCRIT 25 % (39-51); HEMOGLOBIN 8.4 g/dL (13.5-17.5); LYMPHOCYTES # (AUTO) 1.3 /CMM (0.8-4.8); LYMPHOCYTES % (AUTO) 16.5 % (20.0-44.0); MEAN CORPUSCULAR HGB CONC 33 g/dl (31.0-36.0); MEAN CORPUSCULAR VOLUME 91 fL (80-96); MONOCYTES # (AUTO) 0.9 /CMM (0.1-1.30); MONOCYTES % (AUTO) 10.8 % (2.0-12.0); NEUTROPHILS # (AUTO) 5.6 /CMM (1.8-8.9); NEUTROPHILS % (AUTO) 69.3 % (43.0-81.0); PLATELET COUNT (AUTO) 351 /CMM (150-450); WHITE BLOOD COUNT (AUTO) 8.1 K/uL (4.3-11.0)
[2018-07-07 06:46] LABS: BILIRUBIN,TOTAL 0.2 mg/dL (0.2-1.0); CALCIUM, SERUM 8.3 mg/dL (8.5-10.1); CREATININE 2.2 mg/dL (0.6-1.3); PHOSPHORUS 3.3 mg/dL (2.5-4.9); POTASSIUM 4.7 mmol/L (3.5-5.1); TOTAL PROTEIN, SERUM 6.5 g/dL (6.4-8.2)
[2018-07-07 08:00] VITALS: BP_SYST 104; BP_SYST 116; BP_DIAS 61; BP_DIAS 73
[2018-07-07] MEDS: LEVETIRACETAM SOL (5 ML) 100 MG/ML UDC GT SCH (08:42)
[2018-07-07] MEDS: DOCUSATE SODIUM LIQ 100 MG/10 ML UDC GT SCH ×2 (08:42→16:29)
[2018-07-07] MEDS: PANTOPRAZOLE 40 MG/PACK PACK NG SCH ×2 (08:42→16:29)
[2018-07-07] MEDS: ASCORBIC ACID 500 MG TABLET GT SCH (08:42)
[2018-07-07] MEDS: FERROUS SULFATE UDC 300 MG/5 ML UDC GT SCH ×3 (08:42→16:29)
[2018-07-07] MEDS: LACTOBACILLUS RHAMNOSUS GG 1 EACH CAP.SPRINK GT SCH ×2 (08:42→16:29)
[2018-07-07] MEDS: PHENYTOIN SUSP UDC 100 MG/4 ML UDC GT SCH (08:42)
--- NOTE | 2018-07-07 09:00 | NUR ---
RN NOTES PATIENT RESTING ON BED. AWAKE , EYES OPEN, ZERO FLACC. NO ACUTE RESPIRATORY DISTRESS. WITH TRACH PORTEX 9 CONNECTED TO VENT SETTING AC 16 TV 500 FIO2 35%. AFEBRILE. RESPONSIVE TO TACTILE STIMULI. , NON VERBAL. NSR ON TELE MONITOR. GTF OFF AT THIS TIME WILL RESUME AFTER 2 HOURS DUE TO DILANTIN WILL BE GIVEN AT THIS TIME PER PROTOCOL. IV SITE INTACT AND PATENT RUNNING WITH 1/2 NS @ 75 ML.HR INTACT AND PATENT. OFFLOADED EXT WITH PILLOWS AND T/R COMFORTABLE. WILL CONTINUE TO MONITOR.
--- NOTE | 2018-07-07 11:30 | NUR ---
PROJECT LANDSCAPE ARCHITECT NOTE NOTIFIED TO DR ORNELAS THAT BOTH ARMS AND HANDS WITH SEVERE SWELLING NO NEW ORDER GIVEN AT THIS TIME OK TO POSSIBLE DISCHARGE
[2018-07-07 12:00] VITALS: BP 130/69
--- NOTE | 2018-07-07 12:00 | NUR ---
ORACLE DATABASE ADMINISTRATOR NOTE PER DR ORNELAS OK TO DISCHARGE TO SNF , SPOKE WITH DOCTOR IF STILL OK BOTH ARMS WITH SWELLING OK TO DISCHARGE ,STATED STILL OK TO D\C TO SNF
--- NOTE | 2018-07-07 14:37 | NUR ---
INTERNATIONAL LOGISTICS ANALYST NOTE CALLED TO SNF REPORT GIVEN PER DR JOHNSON CRUMP OK TO LEAVE PICC LINE
--- NOTE | 2018-07-07 15:00 | NUR ---
CLIENT TECHNICAL SUPPORT ASSOCIATE NOTE RT AT BEDSIDE TRACH SUCTION DONE , ALL NEEDS ATTENDED
[2018-07-07 16:00] VITALS: BP 116/64
--- NOTE | 2018-07-07 16:00 | NUR ---
CLINICAL SYSTEMS ANALYST NOTE CALLED TO SNF ,SPOKE WITH SONIA RN AWARE THAT PATIENT HAS SEVERE BOTH ARMS SWELLING
--- NOTE | 2018-07-07 18:02 | NUR ---
MACHINE SET UP NOTE AMBULANCE AT BEDSIDE REPORT GIVEN ,TAKEN TO SNF WITH STABLE CONDITION ,TELE REMOVED PICC LINE IN PLACE, NO S\S INFECTION NOTED
== END 2018-07-07 18:05 | DRG 253 ==
LOC: ER 20:49 → TELE-TD 22:00 → TELE1 22:50
PROVIDERS: ADMIT Internal Medicine Nephrology; ATTEND Internal Medicine
PROC: 5A1955Z Respiratory Ventilation, Greater than 96 Consecutive Hours (ICD-10-PCS; principal; 2018-06-23)
PROC: 30233N1 Transfusion of Nonautologous Red Blood Cells into Peripheral Vein, Percutaneous Approach (ICD-10-PCS; principal; 2018-06-23)
PROC: B546ZZA Ultrasonography of Right Subclavian Vein, Guidance (ICD-10-PCS; 2018-06-25)
PROC: 05H533Z Insertion of Infusion Device into Right Subclavian Vein, Percutaneous Approach (ICD-10-PCS; 2018-06-25)
PROC: 0DB38ZX Excision of Lower Esophagus, Via Natural or Artificial Opening Endoscopic, Diagnostic (ICD-10-PCS; 2018-06-27)
PROC: 0D2DXUZ Change Feeding Device in Lower Intestinal Tract, External Approach (ICD-10-PCS; 2018-07-04)
DX: K92.2 Gastrointestinal hemorrhage, unspecified (principal); G93.41 Metabolic encephalopathy; Z99.11 Dependence on respirator [ventilator] status; J96.11 Chronic respiratory failure with hypoxia; N17.9 Acute kidney failure, unspecified; R53.2 Functional quadriplegia; K94.13 Enterostomy malfunction; I12.9 Hypertensive chronic kidney disease with stage 1 through stage 4 chronic kidney disease, or unspecified chronic kidney disease; E03.9 Hypothyroidism, unspecified; D62 Acute posthemorrhagic anemia; K21.9 Gastro-esophageal reflux disease without esophagitis; N18.9 Chronic kidney disease, unspecified; D53.9 Nutritional anemia, unspecified; Z87.891 Personal history of nicotine dependence; E87.0 Hyperosmolality and hypernatremia; E11.22 Type 2 diabetes mellitus with diabetic chronic kidney disease; B96.4 Proteus (mirabilis) (morganii) as the cause of diseases classified elsewhere; G40.909 Epilepsy, unspecified, not intractable, without status epilepticus; R13.10 Dysphagia, unspecified; F09 Unspecified mental disorder due to known physiological condition; F32.9 Major depressive disorder, single episode, unspecified; Z79.4 Long term (current) use of insulin; Z79.899 Other long term (current) drug therapy; Z87.01 Personal history of pneumonia (recurrent); J98.11 Atelectasis; E66.01 Morbid (severe) obesity due to excess calories; T65.91XS Toxic effect of unspecified substance, accidental (unintentional), sequela; N39.0 Urinary tract infection, site not specified; E86.1 Hypovolemia; K22.2 Esophageal obstruction; B96.20 Unspecified Escherichia coli [E. coli] as the cause of diseases classified elsewhere
CPT/HCPCS: 31720; 36415; 36569; 71045-TC; 80048-TC; 80053-TC; 81000-TC; 82272-TC; 82570-TC; 82728-TC; 82962-TC; 83540-TC; 83735-TC; 84100-TC; 84300-TC; 84484-TC; 85025-TC; 85730-TC; 86850-TC; 86921-TC; 87040-TC; 87081-TC; 87086-TC; 87186-TC; 88305-TC; 88313-TC; 88342; 94002-TC; 94003-TC; 94760-TC; 94762-TC; 99082-TC; A4217; A4349; A6402; A7526; C9113; G0378; J0885; J1815; J1953; J2185; J2704; J3490; J7030; J8597; P9016-BL

== ENCOUNTER 2018-07-31 19:59 | Inpatient (IN) | payer MEDICAID ==
[~2018-07-31] VITALS: Ht 165.1 cm; Wt 81.6 kg
[~2018-07-31 19:59] MED LIST changes: +BLOO-668 IN; -FURO40SO GT; +MERO1VIA IV
--- NOTE | 2018-07-31 20:12 | NUR ---
PT BIB PA FROM SNF FOR COFFEE GROUND EMESIS AND BRIGHT RED BLOOD VOMITING; PT AOX0, NON VERBAL BASELINE; PT ON MONITOR, VSS, NAD NOTED, PENDING MD BRAVO
[2018-07-31 21:30] VITALS: BP 103/52
--- NOTE | 2018-07-31 21:44 | NUR ---
RT PLACED PATIENT ON VENTILATOR PER MD ORDER ON NOTED VENT SETTINGS.PATIENT TOLERATED CURRENT VENT SETTINGS. WILL CONTINUE TO MONITOR. Addendum: 07/31/18 at 2146 by DARCI SALAMANCA RT Amended: Links added.
[2018-07-31] MEDS ORDERED: IV NS 0.9% 500 ML BAG IV ONE (22:00)
[2018-07-31 22:24] LABS: BASOPHILS % (AUTO) 0.2 % (0.0-2.0); EOSINOPHILS % (AUTO) 3.1 % (0.0-6.0); HEMATOCRIT 35 % (39-51); HEMOGLOBIN 11.5 g/dL (13.5-17.5); LYMPHOCYTES # (AUTO) 1.1 /CMM (0.8-4.8); LYMPHOCYTES % (AUTO) 15.7 % (20.0-44.0); MEAN CORPUSCULAR HGB CONC 33 g/dl (31.0-36.0); MEAN CORPUSCULAR VOLUME 93 fL (80-96); MONOCYTES # (AUTO) 0.9 /CMM (0.1-1.30); MONOCYTES % (AUTO) 12.9 % (2.0-12.0); NEUTROPHILS # (AUTO) 4.5 /CMM (1.8-8.9); NEUTROPHILS % (AUTO) 68.1 % (43.0-81.0); PLATELET COUNT (AUTO) 153 /CMM (150-450); RED BLOOD CELL COUNT(AUTO) 3.76 MIL/uL (4.5-6.0); WHITE BLOOD COUNT (AUTO) 6.7 K/uL (4.3-11.0)
[2018-07-31] MEDS ORDERED: PANTOPRAZOLE 40 MG VIAL IV ONE (22:30)
[2018-07-31] MEDS ORDERED: ONDANSETRON HCL/PF 4 MG/2 ML VIAL IVP ONE (22:30)
[2018-07-31] MEDS ORDERED: IV NS 0.9% 1,000 ML BAG IV ONE (22:30)
[2018-07-31 22:44] LABS: ALBUMIN 3.2 g/dL (3.4-5.0); BILIRUBIN,DIRECT 0.1 mg/dL (0.0-0.2); BILIRUBIN,TOTAL 0.2 mg/dL (0.2-1.0); CREATININE 2.7 mg/dL (0.6-1.3); POTASSIUM 4.2 mmol/L (3.5-5.1); TOTAL PROTEIN, SERUM 9.3 g/dL (6.4-8.2)
[2018-07-31] MEDS ORDERED: ONDANSETRON HCL/PF 4 MG/2 ML VIAL ONE (23:00)
[2018-07-31] MEDS ORDERED: PANTOPRAZOLE 40 MG VIAL ONE (23:00)
[2018-07-31 23:20] VITALS: BP 119/68
--- NOTE | 2018-07-31 23:56 | NUR ---
CALLED [facility] [phone] [facility] CONT[facility]
[2018-08-01] VITALS: BP 93/56
--- NOTE | 2018-08-01 00:54 | NUR ---
RT PATIENT WAS TRANSPORTED FROM ER TO [facility] ON VENT WITH ORDERED VENT SETTINGS. PATIENT TOLERATED CURRENT VENT SETTINGS. ALARMS ON AND AUDIBLE. VENT PLUGGED INTO RED OUTLET, AMBUBAG AND SPARE TRACH TUBE AT BEDSIDE. WILL CONTINUE TO MONITOR PATIENT. Addendum: 08/01/18 at 0058 by DARCI SALAMANCA RT Amended: Links added.
[2018-08-01] MEDS ORDERED: HYDROCODONE/APAP 5/325MG 1 EACH TABLET PO PRN (01:00)
[2018-08-01] MEDS ORDERED: INSULIN REGULAR, HUMAN 100 UNIT/ML 3 ML VIAL SQ PRN (01:00)
[2018-08-01] MEDS ORDERED: ALBUTEROL FS 2.5 MG/3 ML VIAL.NEB IH PRN (01:00)
[2018-08-01] MEDS ORDERED: ZOLPIDEM TARTRATE 5 MG TABLET PO PRN (01:00)
[2018-08-01] MEDS ORDERED: ACETAMINOPHEN 325 MG TABLET PO PRN (01:00)
[2018-08-01] MEDS ORDERED: IPRATROPIUM NEB FS 0.5 MG/2.5 ML AMPUL.NEB IH PRN (01:00)
[2018-08-01] MEDS ORDERED: MAG HYDROX/AL HYDROX/SIMETH 30 ML UDC PO PRN (01:00)
[2018-08-01] MEDS ORDERED: ONDANSETRON HCL/PF 4 MG/2 ML VIAL IVP PRN (01:00)
[2018-08-01] MEDS ORDERED: GLUCERNA 1.2 1,000 ML BOTTLE JT SCH ×2 (01:00→02:00)
[2018-08-01] MEDS ORDERED: Z GUARD REMEDY 2 OZ OINT TP PRN (01:00)
[2018-08-01] MEDS ORDERED: ACETAMINOPHEN 650 MG/20.3 ML UDC GT PRN (01:00)
[2018-08-01] MEDS: IV D5/0.45 NACL 1,000 ML IV SCH (01:29)
[2018-08-01] MEDS ORDERED: PANTOPRAZOLE 80 MG in IV NS 0.9% 500 ML IV SCH (02:00)
[2018-08-01 04:10] VITALS: BP 111/63
--- NOTE | 2018-08-01 04:10 | NUR ---
CLERICAL OFFICE WORKER OPENING NOTES RECEIVED PATIENT FOR LAUREN FROM [facility] ([facility]). PATIENT IS ALERT AND ORIENTED X0, NONVERBAL. EYES OPEN ONLY. BREATHING EVEN AND UNLABORED. NO SOB NOTED. VENT DEPENDENT WITH ORDERED SETTINGS. RT AT BEDSIDE. IV ON LEFT UPPER ARM INTACT AND PATENT WITH D5 1/2NS RUNNING AT 40ML/HR. SKIN DRY AND WARM TO TOUCH. AFEBRILE. PATIENT NOTED WITH GT SITE. CLAMP FOR NOW DUE TO GI BLEED. MADE COMFORTABLE IN BED. ALL OTHER NEEDS ATTENDED TO. SAFETY MEASURES IN PLACE. CALL LIGHT WITHIN REACH. WILL CONTINUE TO MONITOR.
[2018-08-01] MEDS ORDERED: PANTOPRAZOLE 40 MG VIAL ONE (04:43)
--- NOTE | 2018-08-01 05:16 | NUR ---
CHIROPRACTIC PRACTICE MANAGER NOTES ADMINISTERED THE 0200 PROTONIX IV DRIP 80MG IN 500ML NS BAG @ 50ML/HR. CHARGE NURSE MADE AWARE OF LATE ADMINISTRATION. UNABLE TO SCAN MEDICATION FOR THE 0 SCHEDULED TIME DUE TO PREVIOUS RN SCANNING MEDICATION NON-ADMINISTERED. CHARGE NURSE AWARE AND SPOKE WITH PHARMACY. WILL CONTINUE TO MONITOR AND ENDORSE TO ONCOMING NURSE.
[2018-08-01] MEDS: METOCLOPRAMIDE HCL 10 MG TABLET GT SCH ×3 (05:26→20:56)
[2018-08-01] MEDS: BLOOD SUGAR DIAGNOSTIC 1 EACH STRIP IN SCH ×3 (05:34→17:53)
--- NOTE | 2018-08-01 06:29 | NUR ---
FOREIGN SERVICE TEACHER CLOSING NOTES PATIENT RESTING IN BED. NO ACUTE CHANGES. BREATHING EVEN AND UNLABORED. NO SOB NOTED. VENT DEPENDENT WITH ORDERED SETTINGS. IV ON LEFT UPPER ARM INTACT AND PATENT WITH D5 1/2NS RUNNING AT 40ML/HR AND IV PROTONIX DRIP AT 50ML/HR. SKIN DRY AND WARM TO TOUCH. AFEBRILE. GT SITE INTACT AND PATENT. KEPT CLEAN DRY AND COMFORTABLE. ALL OTHER NEEDS ATTENDED TO. SAFETY MEASURES IN PLACE. CALL LIGHT WITHIN REACH. WILL ENDORSE TO ONCOMING NURSE FOR LAUREN.
[2018-08-01] MEDS: IPRATROPIUM NEB FS 0.5 MG/2.5 ML AMPUL.NEB IH SCH ×3 (07:29→20:10)
[2018-08-01] MEDS: ALBUTEROL FS 2.5 MG/3 ML VIAL.NEB IH SCH ×3 (07:30→20:09)
[2018-08-01 08:00] VITALS: BP_SYST 116; BP_DIAS 67; BP_DIAS 69
--- NOTE | 2018-08-01 08:00 | NUR ---
TELE1/RN AM SHIFT INITIAL NOTES RECEIVED PT ASLEEP IN BED, PT OPEN EYES, NON-VERBAL, NO GRIMACING OR ACUTE DISTRESS NOTED. ON VENTILATOR WITH RATES SET PRESCRIBED, RESPIRATIONS EVEN AND UNLABORED, SATURATING WELL, SUCTIONED FOR AIRWAY CLEARANCE. PT NOTED WITH BLOOD TINGED SECRETION COMING BOTH ON MOUTH AND TRACH SITE. ON TELE WITH SINUS RHYTHM. MIDLINE PATENT WITH ON GOING INFUSION OF PROTONIX @ 50CC/HR AND D51/2NS @ 40CC/HR. PT ON NPO EXCEPT MEDS, GT SITE FLUSHED, PATENT WITH NO S/S OF INFECTION. SCHEDULED AM MEDS TO BE GIVEN, CL WITHIN REACHED AND SAFETY MAINTAINED. ON GOING MONITORING.
[2018-08-01] MEDS ORDERED: BLOOD SUGAR DIAGNOSTIC 1 EACH STRIP IN SCH (09:00)
[2018-08-01] MEDS ORDERED: Medication Not On Formulary EA (Lansoprazole 30 MG) GT SCH (09:00)
[2018-08-01] MEDS ORDERED: PHENYTOIN 200 MG GT SCH (09:00)
[2018-08-01] MEDS ORDERED: Medication Not On Formulary EA (Lactobacillus Acidophilus (Acidophilus) 1 EACH) GT SCH (09:00)
[2018-08-01] MEDS: LACTOBACILLUS RHAMNOSUS GG 1 EACH CAP.SPRINK GT SCH ×2 (09:15→20:56)
[2018-08-01] MEDS: FERROUS SULFATE (325 MG) 325 MG/TAB TABLET GT SCH ×3 (09:15→17:53)
[2018-08-01] MEDS: PHENYTOIN SUSP UDC 100 MG/4 ML UDC GT SCH ×2 (09:15→20:57)
[2018-08-01] MEDS: DOCUSATE SODIUM LIQ 100 MG/10 ML UDC GT SCH ×2 (09:15→17:53)
[2018-08-01] MEDS: LEVETIRACETAM SOL (5 ML) 100 MG/ML UDC GT SCH ×2 (09:15→20:57)
[2018-08-01] MEDS: ASCORBIC ACID 500 MG TABLET GT SCH (09:15)
--- NOTE | 2018-08-01 09:58 | NUR ---
WOUND CARE CONSULT: PT PRESENTS WITH IMMOBILITY, INCONTINENCE AND SCARRING TO SACRUM AND RT HEEL, PRESENT ON ADMISSION. RECOMMENDATIONS MADE FOR SKIN PROTECTION. DISCUSSED WITH NURSING STAFF. FIRST STEP LOW AIRLOSS MATTRESS ORDERED. WILL SEE PRN. CURRENT DELFINA SCORE IS 8. MD IN AGREEMENT WITH PLAN OF CARE. Addendum: 08/01/18 at 1000 by MANISHA HOLLAND WNDNU Amended: Links added.
--- NOTE | 2018-08-01 10:00 | NUR ---
TELE1/RN CONSULT - WOUND CONSULT PT SEEN AND EXAMINED BY WOUND NURSE MANISHA, NO NEW SKIN TX RECEIVED AT THIS TIME. MONITORING CONTINUED.
--- NOTE | 2018-08-01 10:04 | NUR ---
RT PT REC'D ON MECHANICAL VENT ON ORDERED SETTINGS. NO SOB, NO RESPIRATORY DISTRESS NOTED AT THIS TIME. TRACH TUBE PATENT, SECURE AND IN PLACE. BVM BY BEDSIDE. VENT PLUGGED IN RED OUTLET. VENT ALARMS ON AND AUDIBLE. PT SUCTIONED. WILL CONTINUE TO MONITOR. Addendum: 08/01/18 at 1004 by MARIA DOLORES SHELL RT Amended: Links added.
[2018-08-01 11:51] LABS: BASOPHILS % (AUTO) 0.3 % (0.0-2.0); EOSINOPHILS % (AUTO) 2.5 % (0.0-6.0); HEMATOCRIT 31 % (39-51); HEMOGLOBIN 10.2 g/dL (13.5-17.5); LYMPHOCYTES % (AUTO) 20.8 % (20.0-44.0); MEAN CORPUSCULAR HGB CONC 33 g/dl (31.0-36.0); MEAN CORPUSCULAR VOLUME 92 fL (80-96); MONOCYTES # (AUTO) 0.8 /CMM (0.1-1.30); MONOCYTES % (AUTO) 16.6 % (2.0-12.0); NEUTROPHILS % (AUTO) 59.8 % (43.0-81.0); PLATELET COUNT (AUTO) 126 /CMM (150-450); RED BLOOD CELL COUNT(AUTO) 3.33 MIL/uL (4.5-6.0)
[2018-08-01 12:00] VITALS: BP_SYST 130; BP_DIAS 61; BP_DIAS 99
--- NOTE | 2018-08-01 12:00 | NUR ---
TELE1/RN NOON ROUNDS NO CHANGE OF CONDITION. MONITORING CONTINUED.
[2018-08-01 12:03] LABS: ALBUMIN 2.9 g/dL (3.4-5.0); BILIRUBIN,TOTAL 0.3 mg/dL (0.2-1.0); CALCIUM, SERUM 9.1 mg/dL (8.5-10.1); CREATININE 2.8 mg/dL (0.6-1.3); MAGNESIUM 2.7 mg/dL (1.8-2.4); PHOSPHORUS 4.5 mg/dL (2.5-4.9); POTASSIUM 3.6 mmol/L (3.5-5.1); TOTAL PROTEIN, SERUM 8.3 g/dL (6.4-8.2)
[2018-08-01 13:50] LABS: BAND % (MANUAL) 5 % (0.0-5.0); EOSINOPHILS % (MANUAL) 4 % (0-4); LYMPHOCYTES % (MANUAL) 22 % (16-48); MONOCYTES % (MANUAL) 8 % (0-11.0); NEUTROPHILS % (MANUAL) 61 (42-76)
[2018-08-01 16:00] VITALS: BP 119/43
[2018-08-01 17:36] LABS: APPEARANCE,URINE CLEAR (CLEAR); BILIRUBIN,URINE NEGATIVE (NEGATIVE); BLOOD, URINE NEGATIVE Ery/uL (NEGATIVE); COLOR,URINE YELLOW (YELLOW); KETONES,URINE NEGATIVE (NEGATIVE); LEUKOCYTE ESTERASE ,URINE 2+ (NEGATIVE); NITRITE, URINE NEGATIVE (NEGATIVE); PROTEIN,URINE 1+ mg/dl (NEGATIVE); UGLUCOSE NEGATIVE (NEGATIVE); UROBILINOGEN,URINE 0.2 EU/dL (0.2)
[2018-08-01 18:22] LABS: RBC,URINE 0-2 /HPF (0-2)
[2018-08-01 18:23] LABS: BACTERIA,URINE Rare /HPF (None Seen); SQUAMOUS EPITHELIAL CELL,UR Rare /HPF (None Seen)
[2018-08-01 18:36] LABS: EOSINOPHIL,URINE None Seen
[2018-08-01] MEDS ORDERED: GLUCERNA 1.2 1,000 ML BOTTLE GT PRN (18:47)
[2018-08-01] MEDS ORDERED: MAG HYDROX/AL HYDROX/SIMETH 30 ML UDC GT PRN (18:48)
--- NOTE | 2018-08-01 19:00 | NUR ---
TD/RN AM SHIFT END NOTES PT NOTED WITH NO ACUTE CHANGE OF CONDITION DURING THE SHIFT, PT STILL HAS BLOOD TINGED SECRETIONS. ALL NEEDS MET. PT ENDORSED TO PM NURSE TO CONTINUE CARE AND TO FOLLOW-UP WITH GI CONSULT. CL WITHIN REACHED AND SAFETY MAINTAINED.
[2018-08-01 20:00] VITALS: BP 109/64
--- NOTE | 2018-08-01 20:00 | NUR ---
HUI RN INITIAL NOTES RECEIVED PT'S BEDSIDE REPORT FROM AM RN. RECEIVED PT ASLEEP IN BED, PT OPEN EYES, NON-VERBAL, NO GRIMACING OR ACUTE DISTRESS NOTED. ON VENTILATOR WITH RATES SET PRESCRIBED, RESPIRATIONS EVEN AND UNLABORED, SATURATING 100%, SUCTIONED FOR AIRWAY CLEARANCE. PT NOTED WITH BLOOD TINGED SECRETION COMING BOTH FROM MOUTH AND TRACH SITE. ON TELE MONITOR WITH SINUS RHYTHM. PATIENT'S RECTAL TEMP IS 93.0 AND AVRIL HUGGER IS USED FOR MAINTAINING THE BODY TEMP WNL, WILL RECHECK TEMP. AGAIN IN 40MINUTES. MIDLINE PATENT WITH ON GOING INFUSION OF D51/2NS @ 40CC/HR. PT ON NPO EXCEPT MEDS, GT SITE FLUSHED, PATENT WITH NO S/S OF INFECTION. CALL LIGHT WITHIN REACHED AND SAFETY MAINTAINED. ON GOING MONITORING.
--- NOTE | 2018-08-01 20:40 | NUR ---
RN NOTES PT'S TEMP IS RECHECKED IS 95.8, TRENDING UP. WILL MONITOR PATIENT CLOSELY. Addendum: 08/02/18 at 0659 by KRISTINE OLIVO RN TRENDING DOWN NOT UP
[2018-08-01] MEDS: PANTOPRAZOLE 40 MG/PACK PACK GT SCH (20:56)
[2018-08-01] MEDS ORDERED: INSULIN GLARGINE, 100 UNIT/ML CARTRIDGE SQ ONE (23:09)
[2018-08-01] MEDS: INSULIN GLARGINE, 100 UNIT/ML CARTRIDGE SQ SCH (23:32)
[2018-08-02] VITALS: BP 93/56
[2018-08-02] MEDS: BLOOD SUGAR DIAGNOSTIC 1 EACH STRIP IN SCH ×5 (00:33→23:31)
[2018-08-02] MEDS: IV D5/0.45 NACL 1,000 ML IV SCH ×2 (00:33→21:06)
[2018-08-02] MEDS: ALBUTEROL FS 2.5 MG/3 ML VIAL.NEB IH SCH ×4 (01:14→19:42)
[2018-08-02] MEDS: IPRATROPIUM NEB FS 0.5 MG/2.5 ML AMPUL.NEB IH SCH ×4 (01:14→19:42)
[2018-08-02 04:00] VITALS: BP 95/53
[2018-08-02] MEDS: METOCLOPRAMIDE HCL 10 MG TABLET GT SCH ×3 (05:17→21:10)
[2018-08-02] MEDS: DEXTROSE 50%-WATER 50 ML DISP.SYRIN IV PRN ×2 (05:23→11:54)
[2018-08-02 06:46] LABS: BASOPHILS % (AUTO) 0.2 % (0.0-2.0); HEMATOCRIT 31 % (39-51); HEMOGLOBIN 10.3 g/dL (13.5-17.5); LYMPHOCYTES # (AUTO) 0.6 /CMM (0.8-4.8); LYMPHOCYTES % (AUTO) 7.5 % (20.0-44.0); MEAN CORPUSCULAR HGB CONC 33 g/dl (31.0-36.0); MEAN CORPUSCULAR VOLUME 93 fL (80-96); MONOCYTES # (AUTO) 0.6 /CMM (0.1-1.30); MONOCYTES % (AUTO) 7.8 % (2.0-12.0); NEUTROPHILS # (AUTO) 6.5 /CMM (1.8-8.9); NEUTROPHILS % (AUTO) 83.5 % (43.0-81.0); PLATELET COUNT (AUTO) 136 /CMM (150-450); RED BLOOD CELL COUNT(AUTO) 3.34 MIL/uL (4.5-6.0); WHITE BLOOD COUNT (AUTO) 7.8 K/uL (4.3-11.0)
--- NOTE | 2018-08-02 06:59 | NUR ---
RN NOTES PT IS STABLE CONDITION, PT STILL HAS BLOOD TINGED SECRETIONS. ALL NEEDS MET. PT ENDORSED TO PM NURSE TO CONTINUE CARE AND . CL WITHIN REACHED AND SAFETY MAINTAINED.ALL NEEDS ARE ATTENDED.
[2018-08-02 07:05] LABS: CALCIUM, SERUM 9.3 mg/dL (8.5-10.1); CREATININE 2.9 mg/dL (0.6-1.3); MAGNESIUM 2.6 mg/dL (1.8-2.4); PHOSPHORUS 5.1 mg/dL (2.5-4.9); POTASSIUM 3.6 mmol/L (3.5-5.1)
--- NOTE | 2018-08-02 07:10 | NUR ---
DIESEL INSTRUCTOR OPENING NOTES RECEIVED PT LYING ON BED WITH VENT AND TRACH DEPEND,OBTUNDED,CAN OPEN EYES.ON TELE HR IS [address]NO SOB AND ACUTE DISTRESS NOTED.BLEEDING NOTED IN TRACH AND BY MOUTH,CHANGED THE TRACH DRESSING.MID ENID EI SON LEFT UA,SITE IS CLEAN,DRY AND INTACT.NO INFILTRATION NOTED.SAFETY IS MAINTAINED AT ALL TIMES.BED IS IN LOW POSITION AND LOCKED,CALL LIGHT IS WITHIN REACH.WILL CONTINUE TO MONITOR THE PT CLOSELY.
[2018-08-02 08:00] VITALS: BP 91/46
[2018-08-02] MEDS: LEVETIRACETAM SOL (5 ML) 100 MG/ML UDC GT SCH ×2 (08:30→21:10)
[2018-08-02] MEDS: DOCUSATE SODIUM LIQ 100 MG/10 ML UDC GT SCH ×2 (08:31→16:29)
[2018-08-02] MEDS: ASCORBIC ACID 500 MG TABLET GT SCH (08:31)
[2018-08-02] MEDS: PANTOPRAZOLE 40 MG/PACK PACK GT SCH ×2 (08:31→21:11)
[2018-08-02] MEDS: FERROUS SULFATE (325 MG) 325 MG/TAB TABLET GT SCH ×3 (08:31→16:29)
[2018-08-02] MEDS: PHENYTOIN SUSP UDC 100 MG/4 ML UDC GT SCH ×2 (08:31→21:10)
[2018-08-02] MEDS: LACTOBACILLUS RHAMNOSUS GG 1 EACH CAP.SPRINK GT SCH ×2 (08:31→21:11)
[2018-08-02 08:57] LABS: CREATININE, URINE 55.6 MG/DL (30.0-125.0); URINE TOTAL PROTEIN 58.4 mg/dL (0-11.9)
[2018-08-02 09:51] LABS: ABG BASE EXCESS -1.4 mmol/L; ABG OXYGEN SATURATION 96.3 % (92.0-98.5); ABG PCO2 33.9 mmHg (35.0-45.0); ABG PH 7.437 (7.350-7.450); ABG PO2 92.9 mmHg (75.0-100.0); AaDO2 81.2 mmHg; COHb 0.9 % (0.5-1.5); MetHb 0.5 % (0.0-1.5); SITE, ABG Right Radial; VENT MODE, BG AC 16 500 +5 30%
--- NOTE | 2018-08-02 10:00 | NUR ---
CAPITAL MARKETS SPECIALIST NOTES RELAYED ABG RESULT TO DR.DANNY ARMIJO,NNO NOTED.
[2018-08-02 12:00] VITALS: BP 97/60
[2018-08-02] MEDS: NEPRO 1,000 ML BOTTLE GT PRN (12:37)
[2018-08-02 16:00] VITALS: BP 98/56
--- NOTE | 2018-08-02 18:45 | NUR ---
JEWEL INSERTER CLOSING NOTES PT IS LYING ON BED WITH TRACH AND VENT DEPEND,RESPIRATION IS EVEN AND NONLABORED.G TUBE FEEDING IS ON,TOLERATING WELL.MINIMAL GASTRIC RESIDUAL NOTED.IV LINE IS IN PLACE.STILL HAVE MILD BLEEDING IN THE MOUTH,NO VOMITING NOTED.ENDORSED TO POULTRY OFFAL WORKER RN FOR LAUREN.
[2018-08-02 20:00] VITALS: BP 110/53
[2018-08-02] MEDS: HYDROCODONE/APAP 5/325MG 1 EACH TABLET GT PRN (21:11)
[2018-08-02] MEDS: INSULIN GLARGINE, 100 UNIT/ML CARTRIDGE SQ SCH (23:35)
[2018-08-03] VITALS: BP 94/53
[2018-08-03] MEDS: IPRATROPIUM NEB FS 0.5 MG/2.5 ML AMPUL.NEB IH SCH ×4 (00:47→19:31)
[2018-08-03] MEDS: ALBUTEROL FS 2.5 MG/3 ML VIAL.NEB IH SCH ×4 (00:47→19:31)
[2018-08-03] MEDS: HYDROCODONE/APAP 5/325MG 1 EACH TABLET GT PRN ×2 (01:45→05:42)
[2018-08-03 04:00] VITALS: BP 99/50
[2018-08-03] MEDS: BLOOD SUGAR DIAGNOSTIC 1 EACH STRIP IN SCH ×4 (05:35→23:27)
[2018-08-03] MEDS: METOCLOPRAMIDE HCL 10 MG TABLET GT SCH ×3 (05:41→22:02)
[2018-08-03 06:35] LABS: BASOPHILS % (AUTO) 0.2 % (0.0-2.0); EOSINOPHILS % (AUTO) 2.5 % (0.0-6.0); HEMATOCRIT 26 % (39-51); HEMOGLOBIN 8.9 g/dL (13.5-17.5); LYMPHOCYTES % (AUTO) 12.6 % (20.0-44.0); MEAN CORPUSCULAR HGB CONC 34 g/dl (31.0-36.0); MEAN CORPUSCULAR VOLUME 93 fL (80-96); MONOCYTES % (AUTO) 13.4 % (2.0-12.0); NEUTROPHILS # (AUTO) 5.5 /CMM (1.8-8.9); NEUTROPHILS % (AUTO) 71.3 % (43.0-81.0); PLATELET COUNT (AUTO) 121 /CMM (150-450); RED BLOOD CELL COUNT(AUTO) 2.82 MIL/uL (4.5-6.0); WHITE BLOOD COUNT (AUTO) 7.7 K/uL (4.3-11.0)
[2018-08-03 06:55] LABS: ALBUMIN 2.5 g/dL (3.4-5.0); BILIRUBIN,TOTAL 0.3 mg/dL (0.2-1.0); CALCIUM, SERUM 8.9 mg/dL (8.5-10.1); MAGNESIUM 2.5 mg/dL (1.8-2.4); PHOSPHORUS 4.1 mg/dL (2.5-4.9); POTASSIUM 3.6 mmol/L (3.5-5.1); TOTAL PROTEIN, SERUM 7.4 g/dL (6.4-8.2)
--- NOTE | 2018-08-03 07:00 | NUR ---
GENERAL INTERNAL MEDICINE DOCTOR OPENING NOTES RECEIVED PT LYING ON BED WITH VENT AND TRACH DEPEND,OBTUNDED,CAN OPEN EYES.ON TELE HR IS 80'SWITH SR.NO SOB AND ACUTE DISTRESS NOTED.PINK TINGED BLEEDING NOTED IN TRACH AND BY MOUTH,CHANGED THE TRACH DRESSING.MIDLINE ON LEFT UA,SITE IS CLEAN,DRY AND INTACT.NO INFILTRATION NOTED.G TUBE IS IN PLACE AND TOLERATING WELL O G TUBE FEEDING.MINIMAL GASTRIC RESIDUAL NOTED.J TUBE IS IN PLACE.SAFETY IS MAINTAINED AT ALL TIMES.BED IS IN LOW POSITION AND LOCKED,CALL LIGHT IS WITHIN REACH.WILL CONTINUE TO MONITOR THE PT CLOSELY.
[2018-08-03 08:00] VITALS: BP 90/31
[2018-08-03] MEDS: LACTOBACILLUS RHAMNOSUS GG 1 EACH CAP.SPRINK GT SCH ×2 (08:10→22:01)
[2018-08-03] MEDS: PANTOPRAZOLE 40 MG/PACK PACK GT SCH ×2 (08:10→22:02)
[2018-08-03] MEDS: DOCUSATE SODIUM LIQ 100 MG/10 ML UDC GT SCH ×2 (08:10→16:07)
[2018-08-03] MEDS: FERROUS SULFATE (325 MG) 325 MG/TAB TABLET GT SCH ×3 (08:10→16:07)
[2018-08-03] MEDS: LEVETIRACETAM SOL (5 ML) 100 MG/ML UDC GT SCH ×2 (08:10→22:02)
[2018-08-03] MEDS: ASCORBIC ACID 500 MG TABLET GT SCH (08:10)
[2018-08-03] MEDS: PHENYTOIN SUSP UDC 100 MG/4 ML UDC GT SCH ×2 (08:11→22:02)
--- NOTE | 2018-08-03 08:23 | NUR ---
RT RECEIVED PT TRACH VENT DEPENDENT WITH NOTED SETTINGS. BUSINESS ENGLISH INSTRUCTOR DONE AND TRACH IS SECURE. VENT ALARMS CHECKED AND AUDIBLE. VENT PLUGGED IN RED OUTLET. B/S ELLA RHONCHI, SX WITH MOD THK AGUILLON SECRETIONS. AMBU BAG NOTED HOB. PT ON CONTINUOUS PULSE OX, SPO2 & HR WITHIN NORMAL LIMITS. BREATHING TX GIVEN PT TOLERATING SETTINGS WELL. NO SOB OR RESP DISTRESS NOTED AT THIS TIME. WILL CONTINUE TO MONITOR T/O SHIFT.
--- NOTE | 2018-08-03 10:30 | NUR ---
CAMPUS RECRUITING COORDINATOR NOTES JOHN HARRINGTON RECOMMENDED ENT CONSULTATION AND PLANNING TO DO ENDOSCOPIC INTERVENTIONS.DISCUSSED WITH JOHNSON ABARCA,PCP SAID NO NEED FOR ENT AND GI CONSULTATION FOR NOW AND HE WILL DISCUSS WITH GI AND LET THE STAFF KNOWS ABOUT THE PLAN.
[2018-08-03 12:00] VITALS: BP 107/62
[2018-08-03] MEDS: IV D5/0.45 NACL 1,000 ML IV SCH (14:36)
[2018-08-03 16:00] VITALS: BP 101/50
--- NOTE | 2018-08-03 18:33 | NUR ---
FIRST AID DIRECTOR CLOSING NOTES PT IS LYING ON BED,ON VENT DEPEND,TOLERATING WELL.G TUBE AND FC IS IN PLACE,STILL HAVE MILD BLEEDING FROM THE MOUTH.NO SOB AND ACUTE DISTRESS NOTED.NO SIGNIFICANT CHANGES NOTED IN THE SHIFT.WILL ENDORSE NEXT SHIFT RN FOR LAUREN.
[2018-08-03 20:00] VITALS: BP 102/58
--- NOTE | 2018-08-03 20:00 | NUR ---
RN INITIAL NOTES RECEIVED PT LYING ON BED WITH VENT AND TRACH DEPEND,OBTUNDED,CAN OPEN EYES. TELE SR HR IS 80'S .NO SOB AND ACUTE DISTRESS NOTED. PINK TINGED BLEEDING NOTED IN TRACH AND BY MOUTH,CHANGED THE TRACH DRESSING. MIDLINE ON LEFT UA,SITE IS CLEAN,DRY AND INTACT. NO INFILTRATION NOTED.G TUBE IS IN PLACE AND TOLERATING WELL O G TUBE FEEDING. MINIMAL GASTRIC RESIDUAL NOTED. J TUBE IS IN PLACE.SAFETY IS MAINTAINED AT ALL TIMES.BED IS IN LOW POSITION AND LOCKED,CALL LIGHT IS WITHIN REACH. WILL CONTINUE TO MONITOR THE PT CLOSELY.
[2018-08-03] MEDS: INSULIN GLARGINE, 100 UNIT/ML CARTRIDGE SQ SCH (22:17)
[2018-08-04] VITALS: BP 98/55
[2018-08-04] MEDS: IPRATROPIUM NEB FS 0.5 MG/2.5 ML AMPUL.NEB IH SCH ×4 (01:59→19:33)
[2018-08-04] MEDS: ALBUTEROL FS 2.5 MG/3 ML VIAL.NEB IH SCH ×4 (01:59→19:33)
[2018-08-04 04:00] VITALS: BP 94/63
[2018-08-04] MEDS: METOCLOPRAMIDE HCL 10 MG TABLET GT SCH ×3 (04:44→22:41)
[2018-08-04 05:42] LABS: BASOPHILS % (AUTO) 0.3 % (0.0-2.0); EOSINOPHILS % (AUTO) 2.8 % (0.0-6.0); HEMATOCRIT 26 % (39-51); HEMOGLOBIN 8.5 g/dL (13.5-17.5); LYMPHOCYTES % (AUTO) 15.8 % (20.0-44.0); MEAN CORPUSCULAR HGB CONC 33 g/dl (31.0-36.0); MEAN CORPUSCULAR VOLUME 92 fL (80-96); MONOCYTES % (AUTO) 17.4 % (2.0-12.0); NEUTROPHILS # (AUTO) 3.8 /CMM (1.8-8.9); NEUTROPHILS % (AUTO) 63.7 % (43.0-81.0); PLATELET COUNT (AUTO) 112 /CMM (150-450); RED BLOOD CELL COUNT(AUTO) 2.78 MIL/uL (4.5-6.0)
[2018-08-04 05:57] LABS: ALBUMIN 2.5 g/dL (3.4-5.0); BILIRUBIN,TOTAL 0.2 mg/dL (0.2-1.0); CALCIUM, SERUM 9.3 mg/dL (8.5-10.1); CREATININE 2.8 mg/dL (0.6-1.3); MAGNESIUM 2.2 mg/dL (1.8-2.4); PHOSPHORUS 3.6 mg/dL (2.5-4.9); POTASSIUM 3.4 mmol/L (3.5-5.1); TOTAL PROTEIN, SERUM 7.4 g/dL (6.4-8.2)
[2018-08-04] MEDS: BLOOD SUGAR DIAGNOSTIC 1 EACH STRIP IN SCH ×4 (06:11→23:05)
[2018-08-04] MEDS: IV D5/0.45 NACL 1,000 ML IV SCH ×2 (06:11→22:51)
[2018-08-04] MEDS: NEPRO 1,000 ML BOTTLE GT PRN (06:11)
--- NOTE | 2018-08-04 07:00 | NUR ---
HOSE SUSPENDER CUTTER OPENING NOTES RECEIVED PT IN BED, EYES OPEN SPONTANEOUSLY. [facility] MD ORDERED. NO S/SX OF RESP DISTRESS NOTED. IV LINE FLUSHED/PATENT. ON IV FLUIDS INFUSING. GTF RUNNING ORDERED. NO RESIDUAL NOTED. NO S/SX OF DISTRESS NOTED AT THIS TIME. EXTREMITIES OFFLOADED. BED IN LOCKED/LOWEST POSITION. SEIZURE PRECAUTIONS MAINTAINED. CALL LIGHT IN REACH. WILL CONT TO MONITOR.
[2018-08-04 08:00] VITALS: BP 120/80
--- NOTE | 2018-08-04 09:00 | NUR ---
GRINDING SUPERVISOR NOTES PER DR TRACEY, DROP IN HGB AND BLOODY SECRETIONS NOT GI ISSUE, CONSULT WITH ENT. NOTIFIED DR ARMIJO FOR ENT PHYSICIAN CONSULT.
[2018-08-04] MEDS: ASCORBIC ACID 500 MG TABLET GT SCH (09:24)
[2018-08-04] MEDS: LEVETIRACETAM SOL (5 ML) 100 MG/ML UDC GT SCH ×2 (09:24→22:41)
[2018-08-04] MEDS: LACTOBACILLUS RHAMNOSUS GG 1 EACH CAP.SPRINK GT SCH ×2 (09:24→22:41)
[2018-08-04] MEDS: DOCUSATE SODIUM LIQ 100 MG/10 ML UDC GT SCH ×2 (09:24→16:40)
[2018-08-04] MEDS: PHENYTOIN SUSP UDC 100 MG/4 ML UDC GT SCH ×2 (09:24→22:41)
[2018-08-04] MEDS: FERROUS SULFATE (325 MG) 325 MG/TAB TABLET GT SCH ×3 (09:24→16:40)
[2018-08-04] MEDS: PANTOPRAZOLE 40 MG/PACK PACK GT SCH ×2 (09:24→22:41)
[2018-08-04 12:00] VITALS: BP 125/80
[2018-08-04] MEDS ORDERED: POTASSIUM CHLORIDE 20 MEQ TAB.PRT.SR PO ONE (12:30)
[2018-08-04 16:00] VITALS: BP_SYST 125; BP_SYST 130; BP_DIAS 76; BP_DIAS 80
--- NOTE | 2018-08-04 16:59 | NUR ---
RT NOTE: PATIENT RECEIVED TRACHED ON ESPRIT VENT ALARMS VERIFIED AND AUDIBLE. SUCTIONED AND LAVAGED MODERATE TO LARGE AMOUNT OF THICK AGUILLON SECRETIONS. VENT PLUGGED INTO RED OUTLET. AMBU BAG AT [facility].
--- NOTE | 2018-08-04 18:39 | NUR ---
CST CLOSING NOTES PT RESTING IN BED, ON MECH VENT NO RESP DISTRESS NOTED. GT BEING USED FOR FEEDING. NO RESIDUAL NOTED. NO BLOODY ASPIRATE NOTED FROM GT. PT HAS SECRETIONS FROM MOUTH, UPON SUCTION NOTICED LIGHT PINK TINGED SECRETIONS. BED IN LOCKED AND LOWEST POSITION. CALL LIGHT IN REACH. WILL ENDORSE TO PM NURSE FOR LAUREN.
[2018-08-04 20:00] VITALS: BP_SYST 116; BP_SYST 99; BP_DIAS 53; BP_DIAS 65
--- NOTE | 2018-08-04 20:00 | NUR ---
RN INITIAL NOTES RECEIVED PT LYING ON BED WITH VENT AND TRACH DEPEND,OBTUNDED,CAN OPEN EYES. TELE SR HR IS 60s. NO SOB AND ACUTE DISTRESS NOTED. MIDLINE ON LEFT UA,SITE IS CLEAN,DRY AND INTACT. NO INFILTRATION NOTED.G TUBE IS IN PLACE AND TOLERATING WELL O G TUBE FEEDING. MINIMAL GASTRIC RESIDUAL NOTED. J TUBE IS IN PLACE.SAFETY IS MAINTAINED AT ALL TIMES. BED IS IN LOW POSITION AND LOCKED,CALL LIGHT IS WITHIN REACH. WILL CONTINUE TO MONITOR THE PT CLOSELY.
[2018-08-04] MEDS: INSULIN GLARGINE, 100 UNIT/ML CARTRIDGE SQ SCH (23:05)
--- NOTE | 2018-08-04 23:22 | NUR ---
RT NOTE PT RECIEVED ON [facility] VENT ON THE FOLLOWING NOTED SETTINGS. NO RESP DISTRESS NOTED. PT SX'D LARGE THICK YELLOW SECRETIONS. BREATHING TX GIVEN, NO ADVERSE REACTIONS NOTED. VENT IS PLUGGED INTO RED OUTLET. ALARMS ARE ON AND AUDIBLE. AMBU BAG IS AT BEDSIDE. WILL CONT TO MONITOR PT. Addendum: 08/04/18 at 5394 by HENRI SANDHU RT Amended: Links added.
[2018-08-05] VITALS: BP 116/65
[2018-08-05] MEDS: IPRATROPIUM NEB FS 0.5 MG/2.5 ML AMPUL.NEB IH SCH ×4 (00:58→19:45)
[2018-08-05] MEDS: ALBUTEROL FS 2.5 MG/3 ML VIAL.NEB IH SCH ×4 (00:58→19:45)
[2018-08-05 04:00] VITALS: BP 103/57
[2018-08-05] MEDS: METOCLOPRAMIDE HCL 10 MG TABLET GT SCH ×4 (05:33→23:16)
[2018-08-05] MEDS: BLOOD SUGAR DIAGNOSTIC 1 EACH STRIP IN SCH ×4 (05:35→23:27)
--- NOTE | 2018-08-05 06:31 | NUR ---
RN CLOSING NOTES PT IS LYING ON BED,ON VENT DEPEND,TOLERATING WELL.G TUBE FEEDING. J TUBE IN PLACE. NO MILD BLEEDING FROM THE MOUTH.NO SOB AND NO ACUTE DISTRESS NOTED.NO SIGNIFICANT CHANGES NOTED IN THE SHIFT.WILL ENDORSE NEXT SHIFT RN FOR LAUREN.
[2018-08-05 08:00] VITALS: BP 109/54
--- NOTE | 2018-08-05 08:00 | NUR ---
TELE1/RN AM SHIFT INITIAL NOTES RECEIVED PT AWAKE IN BED, PT OPEN EYES, NON-VERBAL, NO ACUTE DISTRESS OR GRIMACING NOTED, NO ACTIVE BLEEDING NOTED OR ANY PINK TINGED SPUTUM NOTED. ON VENTILATOR WITH RATES SET PRESCRIBED, RESPIRATIONS EVEN AND NON-LABORED, SATURATING @ 100%, SUCTIONED FOR AIRWAY CLEARANCE. GT ACCESS FLUSHED, BOTH GT & JT CLOGGED, CHARGE NURSE MADE AWARE. MIDLINE PATENT WITH ON GOING D51/2NS @ 60CC/HR. PT IS COMFORTABLE, WILL ATTEMPT TO GIVE SCHEDULED AM MEDS, CL WITHIN REACHED AND SAFETY MAINTAINED. ON GOING MONITORING. Addendum: 08/05/18 at 1031 by KADE GERBER RN ADDENDUM: PT ON TELE MONITORING, READING SINUS RHYTHM, HR 61.
[2018-08-05] MEDS: LEVETIRACETAM SOL (5 ML) 100 MG/ML UDC GT SCH ×3 (08:58→23:17)
[2018-08-05] MEDS: PHENYTOIN SUSP UDC 100 MG/4 ML UDC GT SCH ×3 (08:58→23:16)
[2018-08-05] MEDS: FERROUS SULFATE (325 MG) 325 MG/TAB TABLET GT SCH ×3 (08:58→16:26)
[2018-08-05] MEDS: ASCORBIC ACID 500 MG TABLET GT SCH (08:58)
[2018-08-05] MEDS: LACTOBACILLUS RHAMNOSUS GG 1 EACH CAP.SPRINK GT SCH ×3 (08:58→23:16)
[2018-08-05] MEDS: DOCUSATE SODIUM LIQ 100 MG/10 ML UDC GT SCH ×2 (08:58→16:25)
[2018-08-05] MEDS: PANTOPRAZOLE 40 MG/PACK PACK GT SCH (08:58)
[2018-08-05] MEDS ORDERED: EPOETIN ALFA (10,000 UNIT) 10,000 UNIT/ML VIAL SQ SCH (09:00)
[2018-08-05 12:00] VITALS: BP 103/61
--- NOTE | 2018-08-05 12:05 | NUR ---
RT NOTE PT RECIEVED ON MECH VENT ON THE FOLLOWING NOTED SETTINGS. NO RESP DISTRESS NOTED. PT SX'D LARGE THICK YELLOW SECRETIONS. BREATHING TX GIVEN, NO ADVERSE REACTIONS NOTED. VENT IS PLUGGED INTO RED OUTLET. ALARMS ARE ON AND AUDIBLE. AMBU BAG IS AT BEDSIDE. WILL CONT TO MONITOR PT.
--- NOTE | 2018-08-05 13:00 | NUR ---
TELE1/RN CLOGGED GT ACCESS UNABLE TO DE-CLOG GT ACCESS, UNABLE TO ADMINISTER SCHEDULED MEDICATION. CHARGE NURSE AWARE. MONITORING.
--- NOTE | 2018-08-05 14:45 | NUR ---
TELE1/RN GT ACCESS - DR. ARMIJO SPOKE TO DR. ARMIJO OVER THE PHONE DISCUSS ABOUT PT'S GT ACCESS BEING CLOGGED. PER MD TO NOTIFIY DR. KERI MD WAS NOTIFIED VIA TEXT. ALSO DR. ARMIJO VERIFIED THAT THERE IS NO NEED FOR ENT CONSULT. CHARGE NURSE MADE AWARE. PT ROUNDED, NO CHANGE OF CONDITION. ON GOING MONITORING.
[2018-08-05] MEDS: IV D5/0.45 NACL 1,000 ML IV SCH (15:29)
[2018-08-05 16:00] VITALS: BP 99/46
--- NOTE | 2018-08-05 18:00 | NUR ---
TELE1/RN AFTERNOON ROUNDS NO CHANGE OF CONDITION, PT SUCTIONED AND REPOSITIONED. GT ACCESS STILL CLOGGED. DR. TRACY FOLLOWD UP WITH DR. TRACEY AND MD REPLIED WILL SEE PT. MONITORING CONTINUED.
--- NOTE | 2018-08-05 19:23 | NUR ---
TELE1/RN AM SHIFT END NOTES NO ACUTE CHANGE OF CONDITION NOTED DURING THE SHIFT. ALL NEEDS MET. PT ENDORSED TO PM NURSE TO CONTINUE CARE. CL WITHIN REACHED AND SAFETY MAINTAINED.
[2018-08-05 20:00] VITALS: BP 98/42
--- NOTE | 2018-08-05 20:00 | NUR ---
RN INITIAL NOTES RECEIVED PT IN BED, PT OPEN EYES, NON-VERBAL, NO ACUTE DISTRESS, NO S/S ACTIVE BLEEDING NOTED. PT ON VENTILATOR WITH RATES ORDERED, RESPIRATIONS EVEN AND NON-LABORED, SATURATING @ 100%. GTUBE AND JTUBE IN PLACE, BOTH GT & JT CLOGGED, MIDLINE PATENT WITH ON GOING D51/2NS @ 60CC/HR. SAFETY MAINTAINED. WILL CONT. TO MONITOR.
--- NOTE | 2018-08-05 21:00 | NUR ---
RN NOTES UNABLE TO ADMINISTER SCHEDULED MEDICATION. DUE TO GT AND JT ACCESS CLOGGED.SEVERAL ATTEMPTS WERE MADE TO DECLOG BY DIFFRENT RNS. CHARGE NURSE AWARE AND MD AWARE. WILL CONT TO MONITORING.
[2018-08-05] MEDS: INSULIN GLARGINE, 100 UNIT/ML CARTRIDGE SQ SCH (22:00)
--- NOTE | 2018-08-05 23:00 | NUR ---
RN NOTES UNABLE TO ADMINISTER SCHEDULED MEDICATION. DUE TO GT AND JT ACCESS CLOGGED. CHARGE NURSE AWARE AND MD AWARE. WILL CONT TO MONITORING.
[2018-08-05] MEDS: PANTOPRAZOLE 40 MG VIAL IV SCH (23:16)
[2018-08-06] VITALS (7 sets, daily range): BP systolic 75–138; BP diastolic 42–81
[2018-08-06] MEDS: IPRATROPIUM NEB FS 0.5 MG/2.5 ML AMPUL.NEB IH SCH ×4 (01:30→19:29)
[2018-08-06] MEDS: ALBUTEROL FS 2.5 MG/3 ML VIAL.NEB IH SCH ×4 (01:30→19:29)
[2018-08-06] MEDS: NEPRO 1,000 ML BOTTLE GT PRN ×2 (01:43→11:18)
[2018-08-06] MEDS: METOCLOPRAMIDE HCL 10 MG TABLET GT SCH ×3 (04:30→21:32)
[2018-08-06] MEDS: BLOOD SUGAR DIAGNOSTIC 1 EACH STRIP IN SCH ×3 (05:42→17:40)
--- NOTE | 2018-08-06 06:52 | NUR ---
RN CLOSING NOTES PT IS LYING ON BED,ON VENT DEPEND,TOLERATING WELL.G TUBE AND J TUBE IN PLACE BUT STILL CLOGGED . NO BLEEDING NOTED FROM THE MOUTH.NO SOB AND NO ACUTE DISTRESS NOTED.NO SIGNIFICANT CHANGES NOTED IN THE SHIFT.WILL ENDORSE NEXT SHIFT RN FOR LAUREN.
--- NOTE | 2018-08-06 07:57 | NUR ---
SHIP SCALER OPENING NOTES RECEIVED BEDSIDE REPORT PATIENT OBTUNDED ON VENT TOLERATING SETTINGS WELL. NO SIGNS OR SYMPTOMS OF RESPIRATORY DISTRESS OR ACUTE PAIN NOTED. ABLE TO UNPLUG JT WILL FOLLOW ORDERS IN REGARDS TO FEEDING AND MEDS. PATIENT HAS ROMAN MIDLINE WITH D5 1/2 NS @ 60 ML/HR .ASPIRATION AND SAFETY PRECAUTIONS IN PLACE HOB ELEVATED BED IN LOW POSITION .WILL CONT TO MONITOR .
[2018-08-06] MEDS: LACTOBACILLUS RHAMNOSUS GG 1 EACH CAP.SPRINK GT SCH ×2 (09:00→21:32)
[2018-08-06] MEDS: ASCORBIC ACID 500 MG TABLET GT SCH (09:00)
[2018-08-06] MEDS: LEVETIRACETAM SOL (5 ML) 100 MG/ML UDC GT SCH ×2 (09:35→21:31)
[2018-08-06] MEDS: PHENYTOIN SUSP UDC 100 MG/4 ML UDC GT SCH ×2 (09:35→21:32)
[2018-08-06] MEDS: IV D5/0.45 NACL 1,000 ML IV SCH (09:35)
[2018-08-06] MEDS: PANTOPRAZOLE 40 MG VIAL IV SCH ×2 (09:35→21:31)
[2018-08-06] MEDS: DOCUSATE SODIUM LIQ 100 MG/10 ML UDC GT SCH ×2 (09:58→17:09)
[2018-08-06 10:54] LABS: BASOPHILS % (AUTO) 0.2 % (0.0-2.0); EOSINOPHILS % (AUTO) 2.9 % (0.0-6.0); HEMATOCRIT 27 % (39-51); HEMOGLOBIN 9.1 g/dL (13.5-17.5); LYMPHOCYTES # (AUTO) 0.7 /CMM (0.8-4.8); LYMPHOCYTES % (AUTO) 12.7 % (20.0-44.0); MEAN CORPUSCULAR HGB CONC 34 g/dl (31.0-36.0); MEAN CORPUSCULAR VOLUME 92 fL (80-96); MONOCYTES # (AUTO) 0.5 /CMM (0.1-1.30); MONOCYTES % (AUTO) 9.4 % (2.0-12.0); NEUTROPHILS # (AUTO) 4.1 /CMM (1.8-8.9); NEUTROPHILS % (AUTO) 74.8 % (43.0-81.0); PLATELET COUNT (AUTO) 107 /CMM (150-450); WHITE BLOOD COUNT (AUTO) 5.4 K/uL (4.3-11.0)
[2018-08-06 11:07] LABS: ALBUMIN 2.6 g/dL (3.4-5.0); BILIRUBIN,TOTAL 0.2 mg/dL (0.2-1.0); CALCIUM, SERUM 9.6 mg/dL (8.5-10.1); CREATININE 2.1 mg/dL (0.6-1.3); MAGNESIUM 1.9 mg/dL (1.8-2.4); PHOSPHORUS 3.2 mg/dL (2.5-4.9); POTASSIUM 3.5 mmol/L (3.5-5.1); TOTAL PROTEIN, SERUM 7.8 g/dL (6.4-8.2)
[2018-08-06] MEDS: FERROUS SULFATE UDC 300 MG/5 ML UDC GT SCH ×2 (13:29→17:09)
--- NOTE | 2018-08-06 17:13 | NUR ---
COMPRESSED GAS PLANT WORKER NOTES PT TEMP 92.7 RECTAL WARMING MEASURES INITIATED
--- NOTE | 2018-08-06 17:31 | NUR ---
RT END OF THE SHIFT REPORT, PT. 62 Y OLD MALE REMAIN TRACH'D PORTEX # 9 ON VENT WITH NOTED SETTINGS, ALARMS ARE SET AND FUNCTIONAL, NO DISTRESS NOTED T/O SHIFT. NO CHANGES. PT. SUX'D FOR MOD. AMT. OF SECRETIONS, BILATERALLY RALES/RHONCHI B/S NOTED. EQUAL CHEST RISE NOTED, TX'S GIVEN INLINE AND NO ADVERSE REACTION NOTED . HME CHANGED AND PT. AND VITALS REMAIN STABLE T/O DAY. VENT PLUGGED INTO RED OUTLET AND. AMBU BAG AT THE BEDSIDE, REPORT WILL PASS TO PM SHIFT Addendum: 08/06/18 at 1737 by NADEEN LANTIGUA RT Amended: Links added.
--- NOTE | 2018-08-06 19:00 | NUR ---
RECIEVED IN BED ARMS AND LEGS HANDS CONTRACTED. ROLLED WASH CLOTH IN HANDS HEELS OFF THE MATRESS. TRACH GJ TOLD BY THE RN DAY SHIFT IS CLOGGED USING THE JT FOR THE FEEDING INFUSING
--- NOTE | 2018-08-06 19:09 | NUR ---
WELDING EQUIPMENT REPAIRER OPENING NOTES RECEIVED BEDSIDE REPORT PATIENT OBTUNDED ON VENT TOLERATING SETTINGS WELL. NO SIGNS OR SYMPTOMS OF RESPIRATORY DISTRESS OR ACUTE PAIN NOTED.JT PATENT WITH NEPRO RUNNING @ 30ML/HR ENDORSED TO NOC TO MAKE SURE TO FLUSH TUBE PATIENT HAS ROMAN MIDLINE WITH D5 1/2 NS @ 60 ML/HR CORE TEMP LOW VITALS STABLE THROUGHOUT SHIFT. CONDOM CATH PLACED WITH CLEAR YELLOW URINE DRAINING ASPIRATION AND SAFETY PRECAUTIONS IN PLACE HOB ELEVATED BED IN LOW POSITION WILL ENDORSE TO NOC
[2018-08-06] MEDS: INSULIN GLARGINE, 100 UNIT/ML CARTRIDGE SQ SCH (21:42)
[2018-08-07] VITALS: BP 91/43
[2018-08-07] MEDS: BLOOD SUGAR DIAGNOSTIC 1 EACH STRIP IN SCH ×3 (00:11→12:33)
[2018-08-07] MEDS: IV D5/0.45 NACL 1,000 ML IV SCH (00:41)
[2018-08-07] MEDS: IPRATROPIUM NEB FS 0.5 MG/2.5 ML AMPUL.NEB IH SCH ×2 (01:40→08:14)
[2018-08-07] MEDS: ALBUTEROL FS 2.5 MG/3 ML VIAL.NEB IH SCH ×2 (01:40→08:14)
[2018-08-07 04:00] VITALS: BP 103/57
[2018-08-07] MEDS: METOCLOPRAMIDE HCL 10 MG TABLET GT SCH ×2 (05:50→13:02)
--- NOTE | 2018-08-07 06:30 | NUR ---
FEEDING THRU THE NIGHT @30 ,L HOUR USING THE JT D/T PEG CLOGGED. BLOOD SUGARS 109 @ MIDNIGHT AND 90 @ 6am. KEPT CLEAN AND DRY INCONTINENT OF URINE. AT THE BEGINNING OF THE SHIFT BODY TEMP 94.3 AX AND 93.4 ORALLY. bEAR hUGGAR PLACED AND BODY TEMP 97.4 ORALLY
[2018-08-07 06:50] LABS: ALBUMIN 2.5 g/dL (3.4-5.0); BILIRUBIN,TOTAL 0.2 mg/dL (0.2-1.0); CALCIUM, SERUM 9.1 mg/dL (8.5-10.1); CREATININE 2.1 mg/dL (0.6-1.3); MAGNESIUM 1.7 mg/dL (1.8-2.4); PHOSPHORUS 3.5 mg/dL (2.5-4.9); POTASSIUM 3.5 mmol/L (3.5-5.1); TOTAL PROTEIN, SERUM 7.6 g/dL (6.4-8.2)
[2018-08-07 06:53] LABS: BASOPHILS % (AUTO) 0.1 % (0.0-2.0); EOSINOPHILS % (AUTO) 2.7 % (0.0-6.0); HEMATOCRIT 27 % (39-51); LYMPHOCYTES # (AUTO) 0.7 /CMM (0.8-4.8); LYMPHOCYTES % (AUTO) 11.5 % (20.0-44.0); MEAN CORPUSCULAR HGB CONC 34 g/dl (31.0-36.0); MEAN CORPUSCULAR VOLUME 93 fL (80-96); MONOCYTES # (AUTO) 0.5 /CMM (0.1-1.30); MONOCYTES % (AUTO) 9.1 % (2.0-12.0); NEUTROPHILS # (AUTO) 4.4 /CMM (1.8-8.9); NEUTROPHILS % (AUTO) 76.6 % (43.0-81.0); PLATELET COUNT (AUTO) 125 /CMM (150-450); RED BLOOD CELL COUNT(AUTO) 2.87 MIL/uL (4.5-6.0); WHITE BLOOD COUNT (AUTO) 5.7 K/uL (4.3-11.0)
--- NOTE | 2018-08-07 07:29 | NUR ---
GRIEF COUNSELOR OPENING NOTES RECEIVED BEDSIDE REPORT PATIENT OBTUNDED ON VENT TOLERATING SETTINGS WELL. NO SIGNS OR SYMPTOMS OF RESPIRATORY DISTRESS OR ACUTE PAIN NOTED. PATIENT HAS ROMAN MIDLINE WITH D5 1/2 NS @ 60 ML/HR GTF RUNNING NEPRO @30 ML/HR THROUGH JT ASPIRATION AND SAFETY PRECAUTIONS IN PLACE HOB ELEVATED BED IN LOW POSITION .WILL CONT TO MONITOR .
[2018-08-07 08:00] VITALS: BP 118/62
[2018-08-07] MEDS: LEVETIRACETAM SOL (5 ML) 100 MG/ML UDC GT SCH (09:00)
[2018-08-07] MEDS: DOCUSATE SODIUM LIQ 100 MG/10 ML UDC GT SCH (09:03)
[2018-08-07] MEDS: FERROUS SULFATE UDC 300 MG/5 ML UDC GT SCH ×2 (09:03→13:02)
[2018-08-07] MEDS: ASCORBIC ACID 500 MG TABLET GT SCH (09:04)
[2018-08-07] MEDS: LACTOBACILLUS RHAMNOSUS GG 1 EACH CAP.SPRINK GT SCH (09:04)
[2018-08-07] MEDS: PHENYTOIN SUSP UDC 100 MG/4 ML UDC GT SCH (09:04)
[2018-08-07] MEDS: PANTOPRAZOLE 40 MG VIAL IV SCH (09:04)
[2018-08-07] MEDS ORDERED: ACETAMINOPHEN 650 MG/20.3 ML UDC GT PRN ×2 (09:30)
[2018-08-07] MEDS ORDERED: IV D5/0.45 NACL 1,000 ML IV PRN (10:30)
[2018-08-07 12:00] VITALS: BP 95/61
--- NOTE | 2018-08-07 13:00 | NUR ---
PIERCER NOTES PATIENT MIDLINE REMOVED CATH INTACT 18 GAUGE. PRESSURE APPLIED FOR 3 MINUTES NO BLEEDING NOTED. BANDAGED WITH PRESSURE DRESSING
--- NOTE | 2018-08-07 13:00 | NUR ---
CUSTOMER SERVICES COORDINATOR NOTES REPORT GIVEN TO KARIN MALDONADO @[facility]. PATIENT SOIL SORT WORKER TIME APPROX 1330.
--- NOTE | 2018-08-07 13:39 | NUR ---
FIBERGLASS SKI MAKER NOTES CORRECTION P/U TIME WILL BE AROUND 1430/1500
--- NOTE | 2018-08-07 14:36 | NUR ---
ANIMAL PATHOLOGY TEACHER NOTES AMBULANEZ HERE FRO P/U. PATIENT STABLE VS 107/49 HR 64 TEMP 98.1 O2 100 RR 16. ALL BELONGINGS AND EXIT CARE GIVEN . ALL PHOTOS TAKEN.
== END 2018-08-07 14:40 | DRG 243 ==
LOC: ER 20:00 → TELE 08-01 00:32 → TELE1 08-01 04:09
PROVIDERS: ADMIT Internal Medicine; ATTEND Internal Medicine
PROC: 5A1955Z Respiratory Ventilation, Greater than 96 Consecutive Hours (ICD-10-PCS; principal; 2018-08-01)
PROC: B547ZZA Ultrasonography of Left Subclavian Vein, Guidance (ICD-10-PCS; principal; 2018-08-01)
PROC: 05H633Z Insertion of Infusion Device into Left Subclavian Vein, Percutaneous Approach (ICD-10-PCS; principal; 2018-08-01)
DX: K20.9 Esophagitis, unspecified (principal); Z99.11 Dependence on respirator [ventilator] status; G93.41 Metabolic encephalopathy; J96.11 Chronic respiratory failure with hypoxia; N17.9 Acute kidney failure, unspecified; E03.9 Hypothyroidism, unspecified; E11.22 Type 2 diabetes mellitus with diabetic chronic kidney disease; I12.9 Hypertensive chronic kidney disease with stage 1 through stage 4 chronic kidney disease, or unspecified chronic kidney disease; J98.11 Atelectasis; Z79.4 Long term (current) use of insulin; R13.10 Dysphagia, unspecified; E11.649 Type 2 diabetes mellitus with hypoglycemia without coma; E86.0 Dehydration; Z87.19 Personal history of other diseases of the digestive system; Z91.5 Personal history of self-harm; G40.909 Epilepsy, unspecified, not intractable, without status epilepticus; Z79.899 Other long term (current) drug therapy; Z79.51 Long term (current) use of inhaled steroids; K22.2 Esophageal obstruction; N18.9 Chronic kidney disease, unspecified; D64.9 Anemia, unspecified; K94.23 Gastrostomy malfunction; Y83.3 Surgical operation with formation of external stoma as the cause of abnormal reaction of the patient, or of later complication, without mention of misadventure at the time of the procedure; Y82.9 Unspecified medical devices associated with adverse incidents; Y92.129 Unspecified place in nursing home as the place of occurrence of the external cause
CPT/HCPCS: 31720; 36415; 36600; 71045-TC; 76770-TC; 80048-TC; 80053-TC; 80061-TC; 80076-TC; 81000-TC; 82570-TC; 82962-TC; 83690-TC; 83735-TC; 84100-TC; 84155-TC; 84300-TC; 85025-TC; 85730-TC; 86850-TC; 87081-TC; 87086-TC; 87186-TC; 94003-TC; 94760-TC; 94762-TC; 94799-TC; 99082-TC; A4349; A4623; A6402; A6403; C9113; G0378; J0885; J1815; J1953; J2405; J3490; J7030; J7040; J8597

== ENCOUNTER 2019-01-31 17:39 | Inpatient (IN) | payer MEDICAID ==
[~2019-01-31] VITALS: Ht 180.3 cm; Wt 80.7 kg
[~2019-01-31 17:39] MED LIST changes: +FERR220S16 GT; -FERR220S18 GT; -MERO1VIA IV
--- NOTE | 2019-01-31 17:47 | NUR ---
PT BIB PA FROM [facility] FOR +OCCULT BLOOD AND LOW H&H, PT IS AAOX0 WITHDRAWS TO PAIN, ON MECH VENT VIA TRACH, NOT IN RESPIRATORY DISTRESS, HOOKED TO MONITOR, KEPT RESTED AND COMFORTABLE, WILL CONTINUE TO MONITOR.
--- NOTE | 2019-01-31 17:55 | NUR ---
RT PT ADMITTED INTO ER BY AMBULANCE. PT RECEIVED TRACH'D (PORTEX #9) ON [facility] VENT WITH SETTINGS BY TRANSPORT RT. WEIGHT LOSS PHYSICIAN DONE. ALARMS ON AND FUNCTIONING PROPERLY. VENT PLUGGED INTO RED OUTLET. AMBU BAG AT HEAD OF BED. NO SOB OR SIGNS OF DISTRESS NOTED AT THIS TIME. WILL CONTINUE TO MONITOR THE PATIENT FOR ANY CHANGES. Addendum: 01/31/19 at 1810 by CONSUELO HAM RT Amended: Links added.
[2019-01-31] MEDS ORDERED: APIX2.5T GT (17:59)
[2019-01-31] MEDS ORDERED: OMEP20TA5 GT (17:59)
[2019-01-31] MEDS ORDERED: BISA10SU11 RC (17:59)
[2019-01-31] MEDS ORDERED: ATOR40TA GT (17:59)
[2019-01-31] MEDS ORDERED: DEXT15DR6 OP (17:59)
[2019-01-31] MEDS ORDERED: ASPI-605 GT (17:59)
[2019-01-31] MEDS ORDERED: CHLO473M3 MM (17:59)
[2019-01-31] MEDS ORDERED: FERR325T23 GT (17:59)
--- NOTE | 2019-01-31 18:04 | NUR ---
SEEN AND EXAMINED BY .
--- NOTE | 2019-01-31 18:10 | NUR ---
IV LINE ESTABLISHED.
--- NOTE | 2019-01-31 18:22 | NUR ---
URINE SPECIMEN COLLECTED AND SENT TO LAB.
--- NOTE | 2019-01-31 18:41 | NUR ---
DR SHENG DON
[2019-01-31 18:54] LABS: APPEARANCE,URINE Clear (CLEAR); BILIRUBIN,URINE Negative (NEGATIVE); BLOOD, URINE Trace-lysed Ery/uL (NEGATIVE); COLOR,URINE Yellow (YELLOW); KETONES,URINE Negative (NEGATIVE); LEUKOCYTE ESTERASE ,URINE Large (NEGATIVE); NITRITE, URINE Negative (NEGATIVE); PH,URINE 7.5 (5.0-8.0); PROTEIN,URINE 30 mg/dl (NEGATIVE); UGLUCOSE Negative (NEGATIVE); UROBILINOGEN,URINE 0.2 EU/dL (0.2)
[2019-01-31 18:57] LABS: BASOPHILS % (AUTO) 0.1 % (0.0-2.0); EOSINOPHILS % (AUTO) 2.4 % (0.0-6.0); LYMPHOCYTES % (AUTO) 20.8 % (20.0-44.0); MEAN CORPUSCULAR HGB CONC 34 g/dl (31.0-36.0); MEAN CORPUSCULAR VOLUME 92 fL (80-96); MONOCYTES # (AUTO) 0.4 /CMM (0.1-1.30); MONOCYTES % (AUTO) 7.9 % (2.0-12.0); NEUTROPHILS # (AUTO) 3.2 /CMM (1.8-8.9); NEUTROPHILS % (AUTO) 68.8 % (43.0-81.0); PLATELET COUNT (AUTO) 89 /CMM (150-450); RED BLOOD CELL COUNT(AUTO) 2.07 MIL/uL (4.5-6.0); WHITE BLOOD COUNT (AUTO) 4.7 K/uL (4.3-11.0)
[2019-01-31 19:03] LABS: HEMATOCRIT 19 % (39-51); HEMOGLOBIN 6.4 g/dL (13.5-17.5)
[2019-01-31 19:13] LABS: ALBUMIN 2.7 g/dL (3.4-5.0); BILIRUBIN,TOTAL 0.1 mg/dL (0.2-1.0); CALCIUM, SERUM 9.3 mg/dL (8.5-10.1); CREATININE 1.9 mg/dL (0.6-1.3); POTASSIUM 4.1 mmol/L (3.5-5.1); TOTAL PROTEIN, SERUM 7.8 g/dL (6.4-8.2)
--- NOTE | 2019-01-31 19:15 | NUR ---
REPORT GIVEN TO JOEL OLSEN FOR LAUREN.
[2019-01-31 19:22] LABS: BACTERIA,URINE 3+ /HPF (None Seen); SQUAMOUS EPITHELIAL CELL,UR Few /HPF (None Seen); WBC,URINE 21-50 /HPF (0-3)
[2019-01-31] MEDS ORDERED: PANTOPRAZOLE 40 MG VIAL ONE ×2 (19:27→19:54)
[2019-01-31] MEDS ORDERED: PANTOPRAZOLE 80 MG in IV NS 0.9% 500 ML IV PRN ×2 (19:30→20:00)
[2019-01-31] MEDS ORDERED: PANTOPRAZOLE 80 MG in IV NS 0.9% 500 ML IV ONE (19:30)
[2019-01-31 19:31] LABS: BAND % (MANUAL) 4 % (0.0-5.0); EOSINOPHILS % (MANUAL) 7 % (0-4); LYMPHOCYTES % (MANUAL) 22 % (16-48); MONOCYTES % (MANUAL) 14 % (0-11.0); NEUTROPHILS % (MANUAL) 53 (42-76)
[2019-01-31 19:35] LABS: THYROID STIMULATING HORMONE 4.472 uIU/mL (0.358-3.74)
[2019-01-31] MEDS ORDERED: CEFTRIAXONE 1GM BAG (ER ONLY) 1 GM/50 ML PIGGYBACK IV ONE (20:00)
--- NOTE | 2019-01-31 20:01 | NUR ---
PROTONIX ORDER VERIFIED WITH DR. DRAKE. PER MD TO GIVE PROTONIX 40MG IVP BOLUS AND CONTINUE WITH PROTONIX DRIP AT 52ML/HR. ORDER NOTED AND CARRIED OUT
--- NOTE | 2019-01-31 20:05 | NUR ---
CALLED [employer] FOR Derek CLOUD
[2019-01-31] MEDS ORDERED: CEFTRIAXONE 1GM BAG (ER ONLY) 50 ML IV ONE (20:07)
--- NOTE | 2019-01-31 20:59 | NUR ---
REPORT GIVEN TO SOTO FOR LAUREN
[2019-01-31 21:00] VITALS: BP 102/58
--- NOTE | 2019-01-31 21:59 | NUR ---
PT WAS TRANSFERRED TO 116 UNDER ACLS.
[2019-01-31 22:00] VITALS: BP 102/58
--- NOTE | 2019-01-31 22:30 | NUR ---
TD RN OPENING NOTE RECEIVED PATIENT FROM ER. PATIENT SHOWED NO SIGNS OF DISTRESS. PATIENT ON TRACH TOLERATING WELL AND SOB. PATIENT HAS IV ACCESS ON RIGHT HAND PATENT AND FLUSHING WELL. PATIENT IS BED BOUND WITH NO WOUNDS ONLY WITH REDNESS ON THE SACRUM AREA. PATIENT HAS A G-TUBE INTACT. HAS MILD BLEEDING IN THE MOUTH. ALL VITALS WNL EXCEPT FOR TEMP. TEMP IS AT 93.1 PATIENT HAS BEAR HUGGER ON WILL CONTINUE TO MONITOR PATIENT. ALL SAFETY PRECAUTIONS APPLIED BED IS LOW, BED ALARM ON, AND CALL LIGHT WITHIN REACH. WILL CONTINUE TO MONITOR PATIENT.
[2019-02-01] VITALS (14 sets, daily range): BP systolic 101–135; BP diastolic 50–73
[2019-02-01] MEDS: IV D5/ 0.9% NACL 1,000 ML IV PRN ×2 (01:43→14:29)
[2019-02-01 07:05] LABS: BASOPHILS % (AUTO) 0.3 % (0.0-2.0); EOSINOPHILS % (AUTO) 1.9 % (0.0-6.0); LYMPHOCYTES # (AUTO) 0.8 /CMM (0.8-4.8); MEAN CORPUSCULAR HGB CONC 33 g/dl (31.0-36.0); MEAN CORPUSCULAR VOLUME 92 fL (80-96); MONOCYTES # (AUTO) 0.5 /CMM (0.1-1.30); MONOCYTES % (AUTO) 9.1 % (2.0-12.0); NEUTROPHILS # (AUTO) 4.1 /CMM (1.8-8.9); NEUTROPHILS % (AUTO) 73.7 % (43.0-81.0); PLATELET COUNT (AUTO) 90 /CMM (150-450); RED BLOOD CELL COUNT(AUTO) 2.04 MIL/uL (4.5-6.0); WHITE BLOOD COUNT (AUTO) 5.6 K/uL (4.3-11.0)
[2019-02-01 07:25] LABS: POTASSIUM 4.2 mmol/L (3.5-5.1)
[2019-02-01 07:38] LABS: HEMATOCRIT 19 % (39-51); HEMOGLOBIN 6.2 g/dL (13.5-17.5)
--- NOTE | 2019-02-01 07:45 | NUR ---
RN NOTE: RECEIVED PATIENT IN BED, CAN SPONTANEOUSLY OPEN HIS EYES AND OBTUNDED. PATIENT'S MOUTH WAS NOTED WITH CLOTS AND FREQUENT ORAL SUCTIONING WAS NEEDED. ON COLLECTION TELLER SR HR= 84. ON VENT-TRACH DEPENDENT AND WAS SATURATING HIS CURRENT VENT SETTING 100%. BREATHING EVEN AND UNLABORED. NO FACIAL GRIMACING NOTED. AFEBRILE. SKIN WARM TO TOUCH. (R) HAND IV SITE NOTED PATENT AND INTACT INFUSING 75ML/HR. HOB ELEVATED. ON NPO STATUS. BED ALARMED AND LOCKED AT ALL TIMES. CALL LIGHT WITHIN REACH. NEEDS ANTICIPATED. PAGED DR. Kojo PATRICIO REGARDING THE HGB 6.2. AWAITING FOR MD'S RESPONSE.
--- NOTE | 2019-02-01 07:51 | NUR ---
TD RN CLOSING NOTE PATIENT ASLEEP WITH NO SIGNS OF DISTRESS. PATIENT TOLERATION TRACH AND NO SIGNS OF SOB OR DISCOMFORT. PATIENT HAS D5NS RUNNING ON RT HAND WITH #20G AT 75ML/HR. ALL SAFETY PRECAUTIONS ARE APPLIED. ENDORSED PATIENT TO MORNING NURSE.
--- NOTE | 2019-02-01 08:31 | NUR ---
RN NOTE: CALLED AND PAGED DR. Kojo PATRICIO VIA [facility] NEPHRO EXCHANGE REGARDING THE PATIENT'S HEMOGLOBIN 6.2 AND HEMATOCRIT 19. PATIENT WAS NOTED WITH INTERMITTENT BLEEDING ON THE MOUTH. AWAITING FOR MD'S RESPONSE.
[2019-02-01 08:59] LABS: NEUTROPHILS % (MANUAL) 79 (42-76)
[2019-02-01 09:00] LABS: BAND % (MANUAL) 5 % (0.0-5.0); LYMPHOCYTES % (MANUAL) 11 % (16-48); MONOCYTES % (MANUAL) 5 % (0-11.0)
[2019-02-01] MEDS: PANTOPRAZOLE 40 MG VIAL IV SCH ×2 (09:24→17:04)
[2019-02-01] MEDS ORDERED: BISACODYL SUPP (10 MG) 10 MG/SUPP.RECT SUPP.RECT RC PRN (09:30)
[2019-02-01] MEDS: PHENYTOIN SUSP UDC 100 MG/4 ML UDC GT SCH ×2 (09:46→21:55)
[2019-02-01] MEDS: LEVETIRACETAM SOL (5 ML) 100 MG/ML UDC GT SCH ×2 (09:46→21:53)
--- NOTE | 2019-02-01 11:20 | NUR ---
WOUND CARE CONSULT: PT PRESENTS WITH IMMOBILITY, VENT-DEPENDENT. PT RECEIVING BLOOD TRANSFUSION AT THIS TIME AND NOT TO BE TURNED FOR SKIN ASSESSMENT PER CARBIDE GRINDER. ADMISSION PHOTO AND NURSING DOCUMENTATION SHOWS SACRAL SCARRING, PRESENT ON ADMISSION. PT NOTED TO HAVE RT HEEL CALLUS PRESENT ON ADMISSION. RECOMMENDATIONS MADE FOR SKIN PROTECTION. DISCUSSED WITH NURSING STAFF. FIRST STEP LOW AIRLOSS MATTRESS ORDERED. WILL SEE PRN. MALLORY IN AGREEMENT WITH PLAN OF CARE. CURRENT DELFINA SCORE IS 12. Addendum: 02/01/19 at 1122 by MANISHA HOLLAND WNDNU Amended: Links added.
[2019-02-01] MEDS ORDERED: Z GUARD REMEDY 2 OZ OINT TP PRN (11:30)
[2019-02-01] MEDS: Z GUARD REMEDY 2 OZ OINT TP SCH (12:11)
[2019-02-01] MEDS: CHLORHEXIDINE GLUCONATE 15 ML UDC MM SCH (17:04)
--- NOTE | 2019-02-01 18:18 | NUR ---
RN NOTE: CALLED AND LEFT VOICE MESSAGE TO MARY VALENTINA (BROTHER) REGARDING THE EGD PROCEDURE FOR THE PATIENT. AWAITING FOR CALL BACK.
--- NOTE | 2019-02-01 19:20 | NUR ---
RN NOTE: BEDSIDE REPORT WAS GIVEN TO PM SHIFT NURSE FOR CONTINUITY OF CARE. PATIENT HAD NO ACTIVE BLEEDING NOTED AND TRANSFUSED [address] PRBC PER [address] ARMIJO'S ORDER. NO BM WITHIN THE SHIFT. WILL ENDORSE TO PM SHIFT NURSE TO FOLLOW-UP AND NO CALL BACK WAS RECEIVED FROM THE BROTHER MARY MONTGOMERY FOR THE EGD CONSENT.
--- NOTE | 2019-02-01 19:30 | NUR ---
BAILER OPERATORS SUPERVISOR OPENING NOTE RECEIVED PATIENT IN NO SIGN OF DISTRESS ALERT AND ORIENTED X1. PATIENT ON VENT WITH PORTEX #9, AC 16, TV 500, F1O2 40% AND PEEP 5. PATIENT HAS A G-TUBE CLAMPED. PATIENT IS BED BOUND WITH DIAPER ON. HAS IV ACCESS ON RIGHT UPPER ARM AND RIGHT HAND PATENT AND FLUSHING WELL. ALL SAFETY PRECAUTION APPLIED AND WILL CONTINUE TO MONITOR.
[2019-02-01] MEDS: CEFTRIAXONE 1 G in IV D5W 50 ML IV SCH (20:56)
[2019-02-01] MEDS: ATORVASTATIN 40 MG TABLET GT SCH (21:56)
[2019-02-02] VITALS: BP 121/58
--- NOTE | 2019-02-02 03:47 | NUR ---
RT Pt trach remains on [facility] vent t/o the night. no resp distress noted.trach secure and patent. Addendum: 02/02/19 at 0348 by GABE CHAPMAN RT Amended: Links added.
[2019-02-02 04:00] VITALS: BP 104/54
[2019-02-02] MEDS: IV D5/ 0.9% NACL 1,000 ML IV PRN ×2 (04:56→18:47)
--- NOTE | 2019-02-02 06:00 | NUR ---
RN NOTE CALLED CLYDE MONTGOMERY TO OBTAIN CONSENT FOR PATIENTS EGD PROCEDURE. HE CONSENTED WITH WITNESS BY CHARGE NURSE BRANDIE
--- NOTE | 2019-02-02 07:15 | NUR ---
RN INITIAL NOTE PATIENT IN BED, OPENS EYES OBTUNDED. ON VENT, SATURATING WELL AT 100%. NO SIGNS OF ANY DISTRESS NOR SOB. ON TELE MONITOR, SR AT 66. NPO EXCEPT MEDS. HAS RIGHT UA IV SITE, WITH D5NS RUNNING AT 75 ML/HR. RIGHT HAND #20 SL. S/P 2 UNITS OF RBCs TRANSFUSED YESTERDAY BECAUSE OF HGB OF 6.2. SCHEDULED FOR EGD THIS MORNING, CONSENT SIGNED. STOOL COLLECTION PENDING. WILL CONTINUE TO MONITOR PATIENT CLOSELY
--- NOTE | 2019-02-02 07:33 | NUR ---
TD RN CLOSING NOTE PATIENT IN BED WITH NO SIGNS OF DISTRESS OF DISCOMFORT. PATIENT ON TRACH AND TOLERATING WELL. IV ACCESS ON RIGHT UPPER ARM WITH D5NS RUNNING AT 75ML/HR. ALL SAFETY PRECAUTIONS APPLIED. ENDORSED PATIENT TO MORNING NURSE
[2019-02-02 08:00] VITALS: BP 121/69
--- NOTE | 2019-02-02 08:00 | NUR ---
RN NOTE NO ORDERS FOR CBC TO RECHECK H AND H THIS AM. CN AWARE, ORDERED STAT BEFORE EGD
[2019-02-02 08:33] LABS: BASOPHILS % (AUTO) 0.2 % (0.0-2.0); EOSINOPHILS % (AUTO) 2.6 % (0.0-6.0); HEMATOCRIT 26 % (39-51); HEMOGLOBIN 8.7 g/dL (13.5-17.5); LYMPHOCYTES # (AUTO) 1.2 /CMM (0.8-4.8); LYMPHOCYTES % (AUTO) 20.9 % (20.0-44.0); MEAN CORPUSCULAR HGB CONC 33 g/dl (31.0-36.0); MEAN CORPUSCULAR VOLUME 90 fL (80-96); MONOCYTES # (AUTO) 0.8 /CMM (0.1-1.30); MONOCYTES % (AUTO) 13.6 % (2.0-12.0); NEUTROPHILS # (AUTO) 3.6 /CMM (1.8-8.9); NEUTROPHILS % (AUTO) 62.7 % (43.0-81.0); PLATELET COUNT (AUTO) 101 /CMM (150-450); WHITE BLOOD COUNT (AUTO) 5.7 K/uL (4.3-11.0)
[2019-02-02] MEDS: LEVETIRACETAM SOL (5 ML) 100 MG/ML UDC GT SCH ×2 (08:47→21:40)
[2019-02-02] MEDS: PANTOPRAZOLE 40 MG VIAL IV SCH ×2 (08:47→16:17)
[2019-02-02] MEDS: Z GUARD REMEDY 2 OZ OINT TP SCH (08:47)
[2019-02-02] MEDS: CHLORHEXIDINE GLUCONATE 15 ML UDC MM SCH ×2 (08:47→16:15)
[2019-02-02] MEDS: PHENYTOIN SUSP UDC 100 MG/4 ML UDC GT SCH ×2 (08:48→21:40)
[2019-02-02] MEDS: FERROUS SULFATE (325 MG) 325 MG/TAB TABLET GT SCH (08:48)
[2019-02-02 12:00] VITALS: BP 107/65
--- NOTE | 2019-02-02 14:14 | NUR ---
RN HAYDEE SNDIER FROM [facility] CALLED, PATIENT IS POSITIVE FOR MRSA NARES.
[2019-02-02 16:00] VITALS: BP 120/64
--- NOTE | 2019-02-02 17:10 | NUR ---
RT Pt trach remains on mech vent t/o the night. no resp distress noted.trach secure and patent.
--- NOTE | 2019-02-02 17:32 | NUR ---
RN NOTE PATIENT TRANSFERRED TO [facility] FOR ISOLATION ROOM - MRSA NARES
--- NOTE | 2019-02-02 19:00 | NUR ---
RECEIVED PATIENT ALERT,BUT NOT FOLLOWING COMMANDS , + STRONG COUGH AND GAG, GRIMACES TO PAIN , CONTRACTED EXTREMITIES, WITH TRACHEOSTOMY TO THE VENT ON AC MODE,NOT IN ANY ACUTE DISTRESS, WITH COPIOUS SECRETIONS ORALLY, ASPIRATION PRECAUTION OBSERVED, G -TUBE CLAMPED ,FEEDING ON HOLD PENDING KUB RESULT AND POSSIBLE EGD IN AM. MID LINE @ ANGELIQUE WITH IV FLUID INFUSING.COMFORT CARE DONE,NEEDS ATTENDED. 1950 KUB DONE, AWAITING RESULT.
--- NOTE | 2019-02-02 19:06 | NUR ---
RN CLOSING NOTE PATIENT IN BED, OBTUNDED. NO SIGNS OF ANY DISTRESS AT THIS TIME. ON VENT, SATING WELL AT 100%. FELIX AT BEDSIDE 1830, ORDERED KUB ROUTINE. PER FELIX, TEXT HER THE RESULTS AND SHE WILL DECIDE WHETHER TO CONTINUE GTF AND CANCEL EGD TOMORROW. ON ISOLATION, PER CENTRAL SUPPLY, NO MORE ISOLATION CART. CONTACT ISOLATION SIGN ATTACHED OUTSIDE THE ROOM. CN AND RN AWARE. REPORT GIVEN TO EXCAVATING SUPERVISOR FOR LAUREN
[2019-02-02] MEDS: CEFTRIAXONE 1 G in IV D5W 50 ML IV SCH (19:45)
[2019-02-02 20:00] VITALS: BP 143/83
--- NOTE | 2019-02-02 20:36 | NUR ---
PT RECEIVED TRACH'D (PORTEX #9) ON [facility] VENT WITH NOTED SETTINGS. PT IS ALERT ,NON VERBAL , RESPONDS TO STIMULI WHEN SUCTIONED. SUCTIONED SMALL AMOUNT OF WHITE THICK SECRETIONS. PUBLIC ADMINISTRATION PROFESSOR DONE. ALARMS ON AND AUDIBLE. VENT PLUGGED INTO RED OUTLET. AMBU BAG AT HEAD OF BED. NO SOB OR SIGNS OF DISTRESS NOTED AT THIS TIME. WILL CONTINUE TO MONITOR THE PATIENT FOR ANY CHANGES.
[2019-02-02] MEDS: ATORVASTATIN 40 MG TABLET GT SCH (21:39)
--- NOTE | 2019-02-02 22:00 | NUR ---
KUB RESULTED,RESULT RELAYED TO FELIX LINCOLN, ORDERED TO START FEEDING,START AT LOW DOSE AND INCREASE TOLERATED.
[2019-02-02] MEDS ORDERED: GLUCERNA 1.2 1,000 ML BOTTLE NG PRN (22:30)
--- NOTE | 2019-02-02 23:00 | NUR ---
FEEDING TUBE STARTED GLUCERNA ,START LOW AT 20 ML /HR,WILL MONITOR RESIDUALS.
[2019-02-03] VITALS: BP 127/63
--- NOTE | 2019-02-03 | NUR ---
REMAINS STABLE,REMAINS ALERT,AWAKE, NOT IN ANY DISTRESS.NO S/S OF ANY BLEEDING,TOLERATING TUBE FEEDING.
[2019-02-03 04:00] VITALS: BP 116/55
--- NOTE | 2019-02-03 06:00 | NUR ---
REMAINS STABLE,NO BLEEDING NOTED.TOLERATING TUBE FEEDING
--- NOTE | 2019-02-03 07:08 | NUR ---
REMAINS STABLE,REPORT GIVEN TO JESSICA MALDONADO
--- NOTE | 2019-02-03 07:15 | NUR ---
FLIGHT FOLLOWER OPENING RECEIVED PATIENT SLEEPING IN BED, RESPONDS TO PAINFUL STIMULI, NONVERBAL, DOES NOT FOLLOW COMMAND. APPEARS TO TOLERATE CURRENT VENT SETTINGS. PULSE OX ATTACHED, ALARM AUDIBLE. TELE MONITOR ATTACHED, SINUS RHYTHM HR 91. NO S/S BLEEDING AT G/J TUBE. FEEDING RUNNING, WILL INCREASE TOLERATED PER ORDER AND MONITOR RESIDUAL. R UA MIDLINE C/D/I. BEARHUGGER ON PATIENT, BP STABLE THIS AM. COPIOUS AMOUNTS OF SECRETIONS NOTED IN MOUTH, SUCTIONED - WITH SLIGHT RED TINGE NOTED. GI LENS EDGE GRINDER MACHINE AWARE. BROTHER AT BEDSIDE EXPRESSING CONCERN. REASSURED. NO S/S ACTIVE BLEEDING AT THIS TIME. ASPIRATION PRECAUTIONS MAINTAINED. WILL CONT TO MONITOR
[2019-02-03 08:00] VITALS: BP 113/52
[2019-02-03 08:11] LABS: BASOPHILS % (AUTO) 0.2 % (0.0-2.0); EOSINOPHILS % (AUTO) 1.7 % (0.0-6.0); HEMATOCRIT 27 % (39-51); HEMOGLOBIN 8.9 g/dL (13.5-17.5); LYMPHOCYTES # (AUTO) 0.9 /CMM (0.8-4.8); LYMPHOCYTES % (AUTO) 13.6 % (20.0-44.0); MEAN CORPUSCULAR HGB CONC 33 g/dl (31.0-36.0); MEAN CORPUSCULAR VOLUME 90 fL (80-96); MONOCYTES # (AUTO) 0.6 /CMM (0.1-1.30); MONOCYTES % (AUTO) 9.8 % (2.0-12.0); NEUTROPHILS # (AUTO) 4.8 /CMM (1.8-8.9); NEUTROPHILS % (AUTO) 74.7 % (43.0-81.0); PLATELET COUNT (AUTO) 113 /CMM (150-450); RED BLOOD CELL COUNT(AUTO) 2.99 MIL/uL (4.5-6.0); WHITE BLOOD COUNT (AUTO) 6.4 K/uL (4.3-11.0)
[2019-02-03 08:18] LABS: ALBUMIN 2.5 g/dL (3.4-5.0); BILIRUBIN,TOTAL 0.1 mg/dL (0.2-1.0); CALCIUM, SERUM 8.9 mg/dL (8.5-10.1); CREATININE 2.1 mg/dL (0.6-1.3); MAGNESIUM 1.6 mg/dL (1.8-2.4); PHOSPHORUS 3.9 mg/dL (2.5-4.9); TOTAL PROTEIN, SERUM 7.8 g/dL (6.4-8.2)
[2019-02-03] MEDS: LEVETIRACETAM SOL (5 ML) 100 MG/ML UDC GT SCH ×2 (08:50→20:18)
[2019-02-03] MEDS: CHLORHEXIDINE GLUCONATE 15 ML UDC MM SCH ×2 (08:50→17:52)
[2019-02-03] MEDS: PHENYTOIN SUSP UDC 100 MG/4 ML UDC GT SCH ×2 (08:50→20:18)
[2019-02-03] MEDS: FERROUS SULFATE (325 MG) 325 MG/TAB TABLET GT SCH (08:52)
[2019-02-03] MEDS: MUPIROCIN OINT 2% 22 GM TUBE SCH ×2 (08:52→20:19)
[2019-02-03] MEDS: PANTOPRAZOLE 40 MG VIAL IV SCH ×2 (08:53→17:52)
[2019-02-03] MEDS: Z GUARD REMEDY 2 OZ OINT TP SCH (08:53)
[2019-02-03] MEDS ORDERED: Magnesium 1GM/D5W 100ML PREMIX 100 ML IV SCH (11:22)
[2019-02-03 12:00] VITALS: BP 124/66
--- NOTE | 2019-02-03 14:21 | NUR ---
RT NOTE RECEIVED PT MECHANICALLY VENTILATED VIA CUFFED TRACHEOSTOMY TUBE. CUFF INFLATED. TRACH TUBE MIDLINE AND SECURE. VENTILATOR SETTINGS PRESCRIBED. ALARMS SET PER PROTOCOL AND AUDIBLE. VENT PLUGGED IN TO RED OUTLET. AMBU BAG AT BED SIDE. NO DISTRESS NOTED. Addendum: 02/03/19 at 1422 by ANDREAS SALAMANCA RT Amended: Links added.
[2019-02-03] MEDS: IV D5/ 0.9% NACL 1,000 ML IV PRN (14:45)
[2019-02-03 16:00] VITALS: BP 121/61
--- NOTE | 2019-02-03 19:00 | NUR ---
MEDICAL FRONT DESK COORDINATOR CLOSING PATIENT SUCTIONED MANY TIMES THROUGHOUT SHIFT FOR PINK TINGED SPUTUM MEASURING 100mL AT END OF SHIFT. GI BIZTALK ARCHITECT AWARE. ORAL CARE COMPLETED. BEAR HUGGER NO LONGER ON PATIENT, TEMP NORMAL THROUGHOUT SHIFT. NO S/S ACTIVE BLEEDING, HR + BP STABLE THROUGHOUT SHIFT. HIGH BARON'S MAINTAINED THROUGHOUT SHIFT. RESIDUAL NOTED, SEE FLOWSHEET. DID NOT INCREASE GTF RATE. REPORT GIVEN TO NOC RN FOR LAUREN
--- NOTE | 2019-02-03 19:10 | NUR ---
TONGUE STITCHER NOTE PATIENT IN BED AWAKE UNABLE TO FOLLOW COMMANDS UNABLE TO TRACK WITH EYES. PATIENT ON VENT TOLERATING SETTINGS NO S/S OF RESP DISTRESS. PATIENT NOTED TO HAVE MODERATE AMOUNTS OF ORAL SECRETION, MOUTH SUCTIONED. PATIENT ON MONITOR SR ON THE MONITOR. SKIN WARM, AND DRY, NO S/S OF ACUTE DISTRESS. SEIZURE PRECAUTIONS IN PLACE. BED IN LOWEST LOCKED POSITION. RN WILL CONTINUE TO MONITOR.
[2019-02-03 20:00] VITALS: BP 134/78
[2019-02-03] MEDS: CEFTRIAXONE 1 G in IV D5W 50 ML IV SCH (20:18)
--- NOTE | 2019-02-03 20:20 | NUR ---
PT RECEIVED TRACH'D (PORTEX #9) ON [facility] VENT WITH NOTED SETTINGS. PT IS AWAKE ,NON VERBAL , RESPONDS TO STIMULI WHEN SUCTIONED. SUCTIONED MODERATE AMOUNT OF AGUILLON THICK SECRETIONS. BRICK CHIMNEY SUPERVISOR DONE. ALARMS ON AND AUDIBLE. VENT PLUGGED INTO RED OUTLET. AMBU BAG AT HEAD OF BED. NO SOB OR SIGNS OF DISTRESS NOTED AT THIS TIME. WILL CONTINUE TO MONITOR THE PATIENT FOR ANY CHANGES.
[2019-02-03] MEDS: ATORVASTATIN 40 MG TABLET GT SCH (22:43)
[2019-02-04] VITALS: BP 129/80
[2019-02-04] MEDS: IV D5/ 0.9% NACL 1,000 ML IV PRN (01:01)
[2019-02-04 04:00] VITALS: BP 125/67
[2019-02-04 06:32] LABS: BASOPHILS % (AUTO) 0.3 % (0.0-2.0); EOSINOPHILS % (AUTO) 2.3 % (0.0-6.0); HEMATOCRIT 26 % (39-51); HEMOGLOBIN 8.6 g/dL (13.5-17.5); LYMPHOCYTES # (AUTO) 0.6 /CMM (0.8-4.8); LYMPHOCYTES % (AUTO) 11.2 % (20.0-44.0); MEAN CORPUSCULAR HGB CONC 34 g/dl (31.0-36.0); MEAN CORPUSCULAR VOLUME 89 fL (80-96); MONOCYTES # (AUTO) 0.7 /CMM (0.1-1.30); MONOCYTES % (AUTO) 13.8 % (2.0-12.0); NEUTROPHILS # (AUTO) 3.8 /CMM (1.8-8.9); NEUTROPHILS % (AUTO) 72.4 % (43.0-81.0); PLATELET COUNT (AUTO) 132 /CMM (150-450); RED BLOOD CELL COUNT(AUTO) 2.88 MIL/uL (4.5-6.0); WHITE BLOOD COUNT (AUTO) 5.2 K/uL (4.3-11.0)
[2019-02-04 06:52] LABS: ALBUMIN 2.4 g/dL (3.4-5.0); BILIRUBIN,TOTAL 0.1 mg/dL (0.2-1.0); CALCIUM, SERUM 8.9 mg/dL (8.5-10.1); CREATININE 2.2 mg/dL (0.6-1.3); MAGNESIUM 1.8 mg/dL (1.8-2.4); PHOSPHORUS 3.5 mg/dL (2.5-4.9); POTASSIUM 3.7 mmol/L (3.5-5.1); TOTAL PROTEIN, SERUM 7.6 g/dL (6.4-8.2)
--- NOTE | 2019-02-04 07:15 | NUR ---
PATTERN WORKER OPENING RECEIVED PATIENT WITH TRACH ATTACHED TO [facility] VENTILATOR, NON VERBAL, DOES NOT FOLLOW COMMANDS. NO ACUTE DISTRESS NOTED. PULSE OX ATTACHED, ALARM AUDIBLE. TELE MONITOR ATTACHED, SINUS RHTHM 76. GTF @30mL/HR, SEE FLOW SHEET FOR RESIDUAL CHARTING. ANGELIQUE MIDLINE D5NS @75mL/HR. C/D/I. NO S/S INFILTRATION. SUCTION EQUIPMENT AT BEDSIDE. PATIENT UNABLE OT MAKE NEEDS KNOWN, WILL CONT TO MONITOR, D/C ORDER FOR TODAY
[2019-02-04] MEDS ORDERED: MUPI22OI7 (07:40)
[2019-02-04] MEDS ORDERED: ALLA266C2 TP (07:40)
[2019-02-04 08:00] VITALS: BP_SYST 122; BP_SYST 146; BP_DIAS 72
[2019-02-04] MEDS: PANTOPRAZOLE 40 MG VIAL IV SCH (08:14)
[2019-02-04] MEDS: LEVETIRACETAM SOL (5 ML) 100 MG/ML UDC GT SCH (08:14)
[2019-02-04] MEDS: PHENYTOIN SUSP UDC 100 MG/4 ML UDC GT SCH (08:14)
[2019-02-04] MEDS: CHLORHEXIDINE GLUCONATE 15 ML UDC MM SCH (08:14)
[2019-02-04] MEDS: FERROUS SULFATE (325 MG) 325 MG/TAB TABLET GT SCH (08:14)
[2019-02-04] MEDS: Z GUARD REMEDY 2 OZ OINT TP SCH (08:15)
[2019-02-04] MEDS: MUPIROCIN OINT 2% 22 GM TUBE SCH (08:15)
--- NOTE | 2019-02-04 10:25 | NUR ---
RN D/C NOTE RECEIVED D/C ORDER TO [facility]. REPORT GIVEN TO JOEL VU. BP + HR STABLE. NO BLEEDING NOTED PER RECTUM. NO SEIZURES. NO RESPIRATORY DISTRESS. ANGELIQUE ARM MIDLINE REMOVED, CATHETER INTACT, PRESSURE DRESSING APPLIED. WOUND PICTURES TAKEN. BOTH BROTHERS AWARE OF TRANSFER. BELONGINGS CHECKLIST PLACED IN CHART, PATIENT UNABLE TO SIGN.
[2019-02-04 12:00] VITALS: BP 120/77
--- NOTE | 2019-02-04 16:33 | NUR ---
AMBULANCE PERSONNEL AT BEDSIDE TO TRANSPORT PATIENT.
== END 2019-02-04 16:45 | DRG 243 ==
LOC: ER 17:41 → TELE-TD 20:52 → TELE1 23:56 → TELE-TD 02-01 00:38 → TELE1 02-02 16:30
PROVIDERS: ADMIT Internal Medicine; ATTEND Internal Medicine
DX: K21.0 Gastro-esophageal reflux disease with esophagitis (principal); G93.1 Anoxic brain damage, not elsewhere classified; Z99.11 Dependence on respirator [ventilator] status; J96.11 Chronic respiratory failure with hypoxia; Z93.0 Tracheostomy status; N17.9 Acute kidney failure, unspecified; N18.3 Chronic kidney disease, stage 3 (moderate); K92.2 Gastrointestinal hemorrhage, unspecified; E03.9 Hypothyroidism, unspecified; I12.9 Hypertensive chronic kidney disease with stage 1 through stage 4 chronic kidney disease, or unspecified chronic kidney disease; F31.9 Bipolar disorder, unspecified; Z86.718 Personal history of other venous thrombosis and embolism; Z79.4 Long term (current) use of insulin; Z87.891 Personal history of nicotine dependence; Z87.19 Personal history of other diseases of the digestive system; G40.909 Epilepsy, unspecified, not intractable, without status epilepticus; E11.22 Type 2 diabetes mellitus with diabetic chronic kidney disease; R13.10 Dysphagia, unspecified; F09 Unspecified mental disorder due to known physiological condition
CPT/HCPCS: 31720; 36415; 71045-TC; 74018; 80048-TC; 80053-TC; 80076-TC; 81000-TC; 82728-TC; 82962-TC; 83540-TC; 83605-TC; 83735-TC; 84100-TC; 84443-TC; 85025-TC; 85730-TC; 86850-TC; 86921-TC; 87040-TC; 87081-TC; 87086-TC; 93970-TC; 94003-TC; 94760-TC; 94762-TC; 99082-TC; A4349; A7526; C9113; G0378; J0696; J1953; J3475; J7040; J7042; J7050; J7060; P9016-BL

== ENCOUNTER 2019-02-16 23:49 | Inpatient (IN) | payer MEDICAID ==
[~2019-02-16] VITALS: Ht 180.3 cm; Wt 91.6 kg
[~2019-02-16 23:49] MED LIST changes: -ACET650S26 GT; -ALBU2.5V38 IH; +ALLA266C2 TP; +APIX2.5T GT; -ASCO500T9 GT; +ASPI-605 GT; +ATOR40TA GT; +BISA10SU11 RC; -BLOO-668 IN; +CHLO473M3 MM; +DEXT15DR6 OP; -DOCU50LI GT; -EPOE1VIA7 SQ; -FERR220S16 GT; +FERR325T23 GT; -INSU100I26 SQ; -INSU100V3 SQ; -IPRA0.2S9 IH; -LACT1CAP61 GT; -LANS30CA56 GT; -METO-295 GT; +MUPI22OI7; +NUT.237L30 GT; -NUT.237L30 JT; +OMEP20TA5 GT
[2019-02-17] VITALS (10 sets, daily range): BP systolic 86–113; BP diastolic 46–65
[2019-02-17] MEDS ORDERED: VANCOMYCIN 1 GM in IV D5W 250 ML IV ONE ×2
[2019-02-17] MEDS ORDERED: IV NS 0.9% 1,000 ML BAG IV ONE
--- NOTE | 2019-02-17 00:06 | NUR ---
Pt rec'd trached on [facility] vent on settings given from transport RT. No resp distress or sob noted. trach is patent and secured. sx'd for small amount of thick yellow secretions. Alarms are set and audible. Vent plugged into red outlet. Ambu bag bedside. will continue to monitor. Addendum: 02/17/19 at 0008 by ROBERT NEWTON RT Amended: Links added.
[2019-02-17] MEDS ORDERED: CEFTRIAXONE 1GM BAG (ER ONLY) 50 ML IV ONE ×2 (00:10)
[2019-02-17] MEDS ORDERED: VANCOMYCIN 1 GM VIAL ONE (00:10)
--- NOTE | 2019-02-17 00:21 | NUR ---
PT BIBRA. C/O "HAVING ISSUES WITH THE GTUBE." NOTED PT W/FEVER. AWARE
[2019-02-17 00:27] LABS: HEMOGLOBIN 7.4 g/dL (13.5-17.5); NEUTROPHILS # (AUTO) 11.7 /CMM (1.8-8.9)
[2019-02-17 00:30] LABS: BASOPHILS # (AUTO) 0.1 /CMM (0.0-0.2); BASOPHILS % (AUTO) 0.4 % (0.0-2.0); EOSINOPHILS % (AUTO) 0.4 % (0.0-6.0); HEMATOCRIT 23 % (39-51); LYMPHOCYTES # (AUTO) 1.1 /CMM (0.8-4.8); MEAN CORPUSCULAR HGB CONC 33 g/dl (31.0-36.0); MEAN CORPUSCULAR VOLUME 92 fL (80-96); MONOCYTES # (AUTO) 1.1 /CMM (0.1-1.30); NEUTROPHILS % (AUTO) 83.2 % (43.0-81.0); PLATELET COUNT (AUTO) 356 /CMM (150-450); RED BLOOD CELL COUNT(AUTO) 2.44 MIL/uL (4.5-6.0)
[2019-02-17 00:34] LABS: APPEARANCE,URINE Slightly Cloudy (CLEAR); BILIRUBIN,URINE Negative (NEGATIVE); BLOOD, URINE Small Ery/uL (NEGATIVE); COLOR,URINE Yellow (YELLOW); KETONES,URINE Negative (NEGATIVE); LEUKOCYTE ESTERASE ,URINE Large (NEGATIVE); NITRITE, URINE Negative (NEGATIVE); PROTEIN,URINE 100 mg/dl (NEGATIVE); UGLUCOSE Negative (NEGATIVE); UROBILINOGEN,URINE 0.2 EU/dL (0.2)
[2019-02-17 00:35] LABS: CALCIUM, SERUM 9.3 mg/dL (8.5-10.1); CARBON DIOXIDE 25 mmol/L (21-32); CHLORIDE 100 mmol/L (98-107); CREATININE 3.1 mg/dL (0.6-1.3); GLUCOSE 149 mg/dL (74-106); POTASSIUM 3.9 mmol/L (3.5-5.1); SODIUM SERUM 132 mmol/L (136-145); UREA NITROGEN, BLOOD 55 mg/dL (7-18)
[2019-02-17 00:48] LABS: ALANINE AMINOTRANSFERASE 14 U/L (12-78); ALBUMIN 2.8 g/dL (3.4-5.0); ALKALINE PHOSPHATASE 107 U/L (46-116); ASPARTATE AMINOTRANSFERASE 17 U/L (15-37); B-TYPE NATRIURETIC PEPTIDE 1321 PG/ML (0-125); BILIRUBIN,DIRECT 0.1 mg/dL (0.0-0.2); BILIRUBIN,TOTAL 0.2 mg/dL (0.2-1.0); TOTAL PROTEIN, SERUM 8.7 g/dL (6.4-8.2)
[2019-02-17 00:52] LABS: BACTERIA,URINE Moderate /HPF (None Seen); SQUAMOUS EPITHELIAL CELL,UR Few /HPF (None Seen); WBC,URINE TOO NUMEROUS TO COUN /HPF (0-3)
[2019-02-17 01:06] LABS: ABG OXYGEN SATURATION 98.4 % (92.0-98.5); ABG PCO2 39.4 mmHg (35.0-45.0); ABG PH 7.428 (7.350-7.450); ABG PO2 126.8 mmHg (75.0-100.0); AaDO2 113.1 mmHg; COHb 1.4 % (0.5-1.5); MetHb 0.7 % (0.0-1.5); O2Hb 96.3 % (94.0-97.0); SITE, ABG Right Femoral; VENT MODE, BG AC 16 500 40% +5
--- NOTE | 2019-02-17 02:12 | NUR ---
TRIED CALLING FOR REPORT. WAS TOLD NURSE WILL CALL BACK SOON.
--- NOTE | 2019-02-17 03:34 | NUR ---
report given to jessica harper
--- NOTE | 2019-02-17 03:50 | NUR ---
RECEIVED PATIENT IN NO ACUTE DISTRESS IN BED. PATIENT IS OBTUNDED ON O2 VIA MECHANICAL VENT. PATIENT HAS TRACH THAT IS CLEAN DRY AND INTACT. PATIENT TOLERATING VENT SETTING WELL AT AC 16, TV 500, FIO2 40%. PEEP 5. PATIENT IS ON TELE WITH SINUS RHYTHM ON THE MONITOR. PATIENT HAS GTUBE SITE WITH REDNESS SURROUNDING AREA (SEE WOUND PICTURE). PATIENT JTUBE WAS DISLODGED FROM JTUBE SITE. PLACED [address] TO KEEP SITE OPEN. PATIENT HAS RIGHT WRIST 20G IV THAT IS CLEAN DRY INTACT AND PATENT WITH SALINE FLUSH. BED IN LOW LOCK PSOTIONI WITH RIALS UP X 2. CALL LIGHT WITHIN REACH AND ALL SAFETY MEASURES ENSURED AND CARRIED OUT. WILL CONTINUE TO MONITOR PATIENT.
[2019-02-17] MEDS ORDERED: IV D5/0.45 NACL 1,000 ML IV ONE (04:30)
[2019-02-17] MEDS ORDERED: phenytoin SODIUM IV 300 MG in IV NS 0.9% 50 ML IV SCH ×2 (04:30→09:00)
[2019-02-17] MEDS ORDERED: LEVETIRACETAM (500MG) 500 MG in IV NS 0.9% 100 ML IV SCH (04:30)
[2019-02-17 06:34] LABS: BASOPHILS # (AUTO) 0.1 /CMM (0.0-0.2); BASOPHILS % (AUTO) 0.3 % (0.0-2.0); EOSINOPHILS % (AUTO) 0.2 % (0.0-6.0); HEMATOCRIT 21 % (39-51); LYMPHOCYTES # (AUTO) 1.1 /CMM (0.8-4.8); LYMPHOCYTES % (AUTO) 7.1 % (20.0-44.0); MEAN CORPUSCULAR HGB CONC 32 g/dl (31.0-36.0); MEAN CORPUSCULAR VOLUME 93 fL (80-96); MONOCYTES # (AUTO) 1.6 /CMM (0.1-1.30); MONOCYTES % (AUTO) 10.2 % (2.0-12.0); NEUTROPHILS % (AUTO) 82.2 % (43.0-81.0); PLATELET COUNT (AUTO) 276 /CMM (150-450); RED BLOOD CELL COUNT(AUTO) 2.26 MIL/uL (4.5-6.0); WHITE BLOOD COUNT (AUTO) 15.8 K/uL (4.3-11.0)
[2019-02-17 06:46] LABS: HEMOGLOBIN 6.7 g/dL (13.5-17.5)
[2019-02-17 06:57] LABS: CALCIUM, SERUM 8.4 mg/dL (8.5-10.1); CREATININE 2.7 mg/dL (0.6-1.3); MAGNESIUM 1.8 mg/dL (1.8-2.4); PHOSPHORUS 2.9 mg/dL (2.5-4.9); POTASSIUM 3.7 mmol/L (3.5-5.1)
--- NOTE | 2019-02-17 07:15 | NUR ---
HUI RN INITIAL NOTES Rec'd pt on bed, obtunded, not in any distress. On MV via trach, sating 100%. On telemonitor, SR. Has FC to GT site to keep stoma open, awaiting for GI consult re: ASIM displacement. Has R wrist G20 w/ D5 1/2 NS x 50 cc/hr infusing well. Safety precaution in place w/ bed in lowest & locked pos. Call light placed w/in reach. Will cont to monitor & attend pt needs.
[2019-02-17] MEDS ORDERED: FERR300L GT (07:41)
[2019-02-17] MEDS ORDERED: PHEN125O3 GT (07:41)
[2019-02-17] MEDS ORDERED: POLY15DR40 EACHEYE (07:41)
[2019-02-17] MEDS ORDERED: CARV6.252 GT (07:41)
[2019-02-17] MEDS ORDERED: BISACODYL SUPP (10 MG) 10 MG/SUPP.RECT SUPP.RECT RC PRN (08:00)
[2019-02-17] MEDS ORDERED: Z GUARD REMEDY 2 OZ OINT TP PRN (08:00)
[2019-02-17 08:30] LABS: LYMPHOCYTES % (MANUAL) 7 % (16-48); MONOCYTES % (MANUAL) 15 % (0-11.0); NEUTROPHILS % (MANUAL) 78 (42-76)
[2019-02-17] MEDS ORDERED: FEE PK DOSING 1 MIN EA MC ONE (08:33)
[2019-02-17] MEDS: CARVEDILOL 6.25 MG TABLET GT SCH ×2 (08:48→21:00)
[2019-02-17] MEDS: FERROUS SULFATE UDC 300 MG/5 ML UDC GT SCH (08:49)
[2019-02-17] MEDS: ESOMEPRAZOLE MAGNESIUM 40 MG SUSPDR.PKT GT SCH (08:49)
--- NOTE | 2019-02-17 08:58 | NUR ---
WOUND CARE CONSULT: PT PRESENTS WITH SACRAL SCARRING AND SLIGHT REDNESS TO ABDOMEN. DEFER TO MD/GI FOR ABDOMEN. RECOMMENDATIONS MADE FOR SKIN PROTECTION.DISCUSSED WITH NURSING STAFF. WILL SEE PRN. PT ON OSCAR ISOFLEX LOW AIRLOSS BED. MD IN AGREEMENT WITH PLAN OF CARE. Addendum: 02/17/19 at 0859 by MANISHA HOLLAND WNDNU Amended: Links added.
[2019-02-17] MEDS ORDERED: LEVETIRACETAM SOL (5 ML) 100 MG/ML UDC GT SCH (09:00)
[2019-02-17] MEDS ORDERED: PHENYTOIN SODIUM IV 50 MG/ML VIAL IV SCH (09:00)
--- NOTE | 2019-02-17 09:00 | NUR ---
Pt seen & examined by Dr. Thomas, updated about pt condition.
[2019-02-17] MEDS: CHLORHEXIDINE GLUCONATE 15 ML UDC MM SCH ×2 (09:15→17:56)
[2019-02-17] MEDS: LEVETIRACETAM (500MG) 500 MG in IV NS 0.9% 100 ML IV SCH ×2 (09:43→20:47)
--- NOTE | 2019-02-17 12:05 | NUR ---
Per Dr. Thomas may monitor BS q6 while NPO.
--- NOTE | 2019-02-17 12:07 | NUR ---
Dr. Espitia acknowledged for GI consult.
[2019-02-17] MEDS ORDERED: INSULIN REGULAR, HUMAN 100 UNIT/ML 3 ML VIAL SQ PRN (12:30)
[2019-02-17] MEDS: LACTOBACILLUS RHAMNOSUS GG 1 EACH CAP.SPRINK GT SCH (17:00)
--- NOTE | 2019-02-17 17:10 | NUR ---
Patient is trach/vent dependent. He resides at [facility] [phone]. He is totally dependent with adl's and bedbound. Current dc plan is to return to [facility] once discharge. Addendum: 02/17/19 at 1710 by IRINA ANTOINE RN Amended: Links added.
[2019-02-17] MEDS: PANTOPRAZOLE 40 MG VIAL IV SCH (17:56)
[2019-02-17] MEDS: BLOOD SUGAR DIAGNOSTIC 1 EACH STRIP IN SCH (17:56)
[2019-02-17] MEDS ORDERED: DEXTROSE 50%-WATER 50 ML DISP.SYRIN IV PRN (18:00)
--- NOTE | 2019-02-17 18:24 | NUR ---
HUI RN CLOSING NOTES No significant changes noted w/in shift. Pt tolerated current MV settings via trach, sating 100%. Remains SR on telemonitor. FC kept in place to keep stoma open. IV line access kept patent & intact - R wrist G20 w/ D5 1/2 NS x 50 cc/hr infusing well, RFA G20 SL, both no s/sx of infection/infiltration noted. Pt tolerated BT of 1 unit PRBC w/ no BT reaction noted. Safety precaution kept in place w/ bed in lowest & locked pos. Call light placed w/in reach. Will endorse to PM RN for LAUREN.
[2019-02-17 18:28] LABS: CREATININE, URINE 62.4 MG/DL (30.0-125.0)
[2019-02-17 18:38] LABS: APPEARANCE,URINE Clear (CLEAR); BILIRUBIN,URINE Negative (NEGATIVE); BLOOD, URINE Trace-intact Ery/uL (NEGATIVE); COLOR,URINE Yellow (YELLOW); KETONES,URINE Negative (NEGATIVE); LEUKOCYTE ESTERASE ,URINE Large (NEGATIVE); NITRITE, URINE Negative (NEGATIVE); PROTEIN,URINE 30 mg/dl (NEGATIVE); UGLUCOSE Negative (NEGATIVE); UROBILINOGEN,URINE 0.2 EU/dL (0.2)
--- NOTE | 2019-02-17 19:32 | NUR ---
HUI RN NOTE PATIENT REPORT GIVEN BEDSIDE. PATIENT IN BED HOB 30 DEGREES. PATIENT CONTRACTED AND UNABLE TO FOLLOW COMMANDS. PATIENT AWAKE AND RESPONDS TO PAIN NON VERBAL. PATIENT ON TELE MONITOR SR. PATIENT HAS FC IN GTUBE STOMA. STOMA REDDENED, MD AWARE WOUND CONSULT ALREADY TOOK PLACE. PATIENT TOLERATING VENT SETTINGS, WITH NO S/S OF RESP DISTRESS. BREATHING EVEN AND UNLABORED. PATIENT RUNNING FLUIDS ON 20 G RFA NO S/S OF INFECTION/INFILTRATION. SAFETY PRECAUTIONS IN PLACE. RN WILL COTNINUE TO MONITOR FOR CHANGES.
[2019-02-17 19:38] LABS: WBC,URINE 21-50 /HPF (0-3)
[2019-02-17 19:39] LABS: BACTERIA,URINE 1+ /HPF (None Seen); SQUAMOUS EPITHELIAL CELL,UR Few /HPF (None Seen)
[2019-02-17 20:48] LABS: EOSINOPHIL,URINE Few
[2019-02-17] MEDS ORDERED: PHENYTOIN SODIUM IV SCH (21:00)
[2019-02-17] MEDS ORDERED: NS 0.9% IV SCH (21:00)
[2019-02-17] MEDS: ATORVASTATIN 40 MG TABLET GT SCH (22:00)
[2019-02-17] MEDS: CEFTRIAXONE 1 G in IV D5W 50 ML IV SCH (22:40)
[2019-02-18] VITALS (11 sets, daily range): BP systolic 93–143; BP diastolic 52–70
[2019-02-18] MEDS: VANCOMYCIN 1 GM in IV D5W 250 ML IV SCH (01:08)
[2019-02-18] MEDS: BLOOD SUGAR DIAGNOSTIC 1 EACH STRIP IN SCH ×4 (01:08→16:52)
[2019-02-18 07:53] LABS: BASOPHILS % (AUTO) 0.5 % (0.0-2.0); EOSINOPHILS % (AUTO) 1.8 % (0.0-6.0); HEMATOCRIT 21 % (39-51); LYMPHOCYTES # (AUTO) 1.1 /CMM (0.8-4.8); LYMPHOCYTES % (AUTO) 13.8 % (20.0-44.0); MEAN CORPUSCULAR HGB CONC 33 g/dl (31.0-36.0); MEAN CORPUSCULAR VOLUME 93 fL (80-96); MONOCYTES # (AUTO) 1.1 /CMM (0.1-1.30); MONOCYTES % (AUTO) 13.5 % (2.0-12.0); NEUTROPHILS # (AUTO) 5.8 /CMM (1.8-8.9); NEUTROPHILS % (AUTO) 70.4 % (43.0-81.0); PLATELET COUNT (AUTO) 266 /CMM (150-450); RED BLOOD CELL COUNT(AUTO) 2.26 MIL/uL (4.5-6.0); WHITE BLOOD COUNT (AUTO) 8.2 K/uL (4.3-11.0)
[2019-02-18 08:02] LABS: HEMOGLOBIN 6.9 g/dL (13.5-17.5)
[2019-02-18 08:03] LABS: ALANINE AMINOTRANSFERASE < 6 U/L (12-78); ALBUMIN 2.1 g/dL (3.4-5.0); ALKALINE PHOSPHATASE 81 U/L (46-116); ASPARTATE AMINOTRANSFERASE 12 U/L (15-37); BILIRUBIN,TOTAL 0.2 mg/dL (0.2-1.0); CALCIUM, SERUM 8.4 mg/dL (8.5-10.1); CARBON DIOXIDE 21 mmol/L (21-32); CHLORIDE 107 mmol/L (98-107); CREATININE 2.7 mg/dL (0.6-1.3); GLUCOSE 110 mg/dL (74-106); MAGNESIUM 1.7 mg/dL (1.8-2.4); POTASSIUM 3.7 mmol/L (3.5-5.1); SODIUM SERUM 140 mmol/L (136-145); TOTAL PROTEIN, SERUM 7.3 g/dL (6.4-8.2); UREA NITROGEN, BLOOD 40 mg/dL (7-18)
[2019-02-18] MEDS: ESOMEPRAZOLE MAGNESIUM 40 MG SUSPDR.PKT GT SCH (08:33)
[2019-02-18] MEDS: CHLORHEXIDINE GLUCONATE 15 ML UDC MM SCH ×2 (08:33→16:14)
[2019-02-18] MEDS: LACTOBACILLUS RHAMNOSUS GG 1 EACH CAP.SPRINK GT SCH ×2 (08:33→16:13)
[2019-02-18] MEDS: FERROUS SULFATE UDC 300 MG/5 ML UDC GT SCH (08:33)
[2019-02-18] MEDS: CARVEDILOL 6.25 MG TABLET GT SCH ×2 (08:33→21:00)
[2019-02-18] MEDS: LEVETIRACETAM (500MG) 500 MG in IV NS 0.9% 100 ML IV SCH ×2 (08:34→21:31)
[2019-02-18 08:59] LABS: EOSINOPHILS % (MANUAL) 4 % (0-4); LYMPHOCYTES % (MANUAL) 12 % (16-48); MONOCYTES % (MANUAL) 14 % (0-11.0); NEUTROPHILS % (MANUAL) 70 (42-76)
--- NOTE | 2019-02-18 09:44 | NUR ---
RN NOTE 0715: Received patient obtunded. With trache to vent, tolerated settings. No respiratory distress noted. With William cath on GT site on. Will remain NPO as ordered. No S/S hypo/hyperglycemia noted at this time. No active bleeding noted at this time. PIV intact. 0940: No any significant changes noted at this time. Called Dr. Soto's office, per exchange, Dr. Preston is instrument person. Reported H/H 6.9/. Awaiting for call back.
--- NOTE | 2019-02-18 12:16 | NUR ---
RN NOTE 1030: Dr. Aguilar in the unit, made aware for the lab result, with order to given 1 unit PRBC. Also made him aware for Sx consult for JT placement since Dr. Espitia is unable to do it, per previous nurse. 1100: Brother at bedside, updated re: patient condition and POC, verbalized underacting. 1200: No any significant changes. Awaiting for blood availability.
--- NOTE | 2019-02-18 14:15 | NUR ---
RN NOTE 15 min after staring blood transfusion, patient tolerated, VSS. Will continue blood transfusion. S/E by Dr. Espitia, showed tube that was pulled out, he said he will replace temporary GT for now for meds and water. Informed MD that I also informed Dr. Soto to defer case to Sx for replacing GJT.
[2019-02-18] MEDS: PANTOPRAZOLE 40 MG VIAL IV SCH (15:14)
[2019-02-18] MEDS: IV D5/0.45 NACL 1,000 ML IV PRN (16:47)
--- NOTE | 2019-02-18 18:24 | NUR ---
RN NOTE No any significant changes. Called pharmacy for Mg but said to inform MD since Cr is elevated. Called Dr. Soto's office/ information systems security officer x3, no answer. No adverse reactions on blood transfusion. Ordered GT fr20 from [facility] by Dr. Espitia did not come back. Will F/U in am.
--- NOTE | 2019-02-18 19:18 | NUR ---
RN OPENING NOTES PATIENT IN BED, AWAKE, NONVERBAL. ON TELE MONITOR SR WITH HR 80'S. WITH PORTEX 9 TRACH TO MECHANICAL VENT, SETTING ORDERED. BREATHING EVEN AND UNLABORED TOLERATING VENT SETTINGS, SATURATING 100%. ORAL BLEEDING NOTED, WILL SUCTION PRN. NO RESPIRATORY OR CARDIAC DISTRESS NOTED AT THE MOMENT. IV SITES RIGHT WRIST 20G AND RIGHT FA 20G, BOTH FLUSHING AND PATENT, IVF RUNNING ORDERED, NO INFILTRATION NOTED. PT NPO PER HOSPITALIST ORDER. 16F RAMON IN GTUBE SITE NOTED, SITE INTACT. SAFETY MEASURES IN PLACE; ASPIRATION PRECAUTIONS IN PLACE, BED LOCKED AND IN LOWEST POSITION, SIDE RAILS UP X3, BED ALARM ON, CALL LIGHT WITHIN REACH, HOB ELEVATED. WILL CONT TO MONITOR PT CLOSELY. PATIENT MG 1.7 NOT REPLACED D/T PHARMACY STATING CREATININE ELEVATED, PER AM RN REPORT CONTACTED FRAMING AND HANGING X3, NO CALL BACK. WILL ATTEMPT TO CALL FRAMING AND HANGING MD AGAIN.
[2019-02-18] MEDS: ATORVASTATIN 40 MG TABLET GT SCH (21:31)
--- NOTE | 2019-02-18 21:44 | NUR ---
RN NOTES PAGED MD REGARDING PATIENT ABNORMAL LAB; MG 1.7 THIS AM NOT REPLACED. NO NEW ORDERS NOTED.
[2019-02-18] MEDS: CEFTRIAXONE 1 G in IV D5W 50 ML IV SCH (22:28)
[2019-02-19] VITALS (8 sets, daily range): BP systolic 84–148; BP diastolic 43–67
[2019-02-19] MEDS: VANCOMYCIN 1 GM in IV D5W 250 ML IV SCH (00:13)
[2019-02-19] MEDS: BLOOD SUGAR DIAGNOSTIC 1 EACH STRIP IN SCH ×4 (00:24→18:42)
--- NOTE | 2019-02-19 05:22 | NUR ---
RT NOTES TRACH TUBE IN PLACE, PATENT, AND SECURED WITH TRACH TIE. ALARMS ON AND AUDIBLE. VENT PLUGGED IN TO RED OUTLET. AMBU BAG AND BACK UP TRACH BY THE BEDSIDE. NO SIGNS OF ANY DISTRESS AT THIS TIME. Addendum: 02/19/19 at 0522 by DANIELLE PINO RT Amended: Links added.
--- NOTE | 2019-02-19 07:00 | NUR ---
RN CLOSING NOTES PATIENT IN BED, AWAKE, NONVERBAL. ON TELE MONITOR SR WITH HR 80'S. WITH PORTEX 9 TRACH TO MECHANICAL VENT, SETTING ORDERED. BREATHING EVEN AND UNLABORED TOLERATING VENT SETTINGS, SATURATING 100%. SUCTIONED PT PRN. NO RESPIRATORY OR CARDIAC DISTRESS NOTED AT THE MOMENT. IV SITES RIGHT FA 20G, FLUSHING AND PATENT, IVF RUNNING ORDERED, NO INFILTRATION NOTED. PT NPO PER HOSPITALIST ORDER. 16F RAMON IN GTUBE SITE NOTED, SITE INTACT. ALL MD ORDERS ATTENDED, ALL NEEDS ANTICIPATED AND MET. SAFETY MEASURES IN PLACE; ASPIRATION PRECAUTIONS IN PLACE, BED LOCKED AND IN LOWEST POSITION, SIDE RAILS UP X3 AND PADDED, BED ALARM ON, CALL LIGHT WITHIN REACH, HOB ELEVATED. WILL CONT TO MONITOR PT CLOSELY. WILL ENDORSE TO AM RN FOR LAUREN.
[2019-02-19 07:21] LABS: BASOPHILS % (AUTO) 0.5 % (0.0-2.0); EOSINOPHILS % (AUTO) 2.3 % (0.0-6.0); HEMATOCRIT 26 % (39-51); HEMOGLOBIN 8.5 g/dL (13.5-17.5); LYMPHOCYTES # (AUTO) 1.3 /CMM (0.8-4.8); LYMPHOCYTES % (AUTO) 15.6 % (20.0-44.0); MEAN CORPUSCULAR HGB CONC 33 g/dl (31.0-36.0); MEAN CORPUSCULAR VOLUME 92 fL (80-96); MONOCYTES # (AUTO) 1.1 /CMM (0.1-1.30); MONOCYTES % (AUTO) 13.8 % (2.0-12.0); NEUTROPHILS # (AUTO) 5.5 /CMM (1.8-8.9); NEUTROPHILS % (AUTO) 67.8 % (43.0-81.0); PLATELET COUNT (AUTO) 320 /CMM (150-450); RED BLOOD CELL COUNT(AUTO) 2.79 MIL/uL (4.5-6.0); WHITE BLOOD COUNT (AUTO) 8.2 K/uL (4.3-11.0)
[2019-02-19 07:46] LABS: ALBUMIN 2.2 g/dL (3.4-5.0); BILIRUBIN,TOTAL 0.1 mg/dL (0.2-1.0); CALCIUM, SERUM 8.8 mg/dL (8.5-10.1); CREATININE 2.5 mg/dL (0.6-1.3); MAGNESIUM 1.8 mg/dL (1.8-2.4); PHOSPHORUS 3.2 mg/dL (2.5-4.9); POTASSIUM 3.4 mmol/L (3.5-5.1)
[2019-02-19 08:07] LABS: TOTAL PROTEIN, SERUM 7.8 g/dL (6.4-8.2)
[2019-02-19] MEDS: LACTOBACILLUS RHAMNOSUS GG 1 EACH CAP.SPRINK GT SCH ×2 (09:00→17:00)
[2019-02-19] MEDS: ESOMEPRAZOLE MAGNESIUM 40 MG SUSPDR.PKT GT SCH (09:00)
[2019-02-19] MEDS: CARVEDILOL 6.25 MG TABLET GT SCH ×2 (09:00→20:23)
[2019-02-19] MEDS: FERROUS SULFATE UDC 300 MG/5 ML UDC GT SCH (09:00)
[2019-02-19] MEDS: CHLORHEXIDINE GLUCONATE 15 ML UDC MM SCH ×2 (09:18→17:12)
[2019-02-19] MEDS: LEVETIRACETAM (500MG) 500 MG in IV NS 0.9% 100 ML IV SCH ×2 (09:18→20:23)
[2019-02-19] MEDS ORDERED: POTASSIUM CL. PREMIX PERIPHER. 50 ML IV SCH (11:03)
[2019-02-19] MEDS: IV D5/0.45 NACL 1,000 ML IV PRN (17:12)
[2019-02-19] MEDS: PANTOPRAZOLE 40 MG VIAL IV SCH (17:12)
--- NOTE | 2019-02-19 21:26 | NUR ---
TRANSFER OF CARE 2125 RECEIVED PATIENT FROM JOEL CARMONA, AT 2125. PATIENT CURRENTLY IN BED, AWAKE, NONVERBAL. ON TELEMONITOR. ON MECHANICAL VENT, WITH PORTEX 9 TRACH, SETTINGS ORDERED. NO SIGNS OF RESPIRATORY DISTRESS. BREATHING EVEN AND UNLABORED, TOLERATING VENT SETTINGS. ORAL BLEEDING NOTED, WILL SUCTION NEEDED. IV SITE RFA #20 G, INTACT AND PATENT, IVF INFUSING ORDERED, NO S/S OF INFECTION/INFILTRATION NOTED. PATIENT HAS CONDOM CATHETER IN PLACE, INTACT AND FLOWING WELL. VITAL SIGNS FOR 1999: 97.2, HR 78, RR 24, BP 123/65. SAFETY PRECAUTIONS IMPLEMENTED; CALL LIGHT WITHIN REACH, BED LOWEST POSITION, BED LOCKED, SIDE RAILS UP X2. WILL CONTINUE TO MONITOR.
[2019-02-19] MEDS: ATORVASTATIN 40 MG TABLET GT SCH (21:48)
[2019-02-19] MEDS: CEFTRIAXONE 1 G in IV D5W 50 ML IV SCH (21:48)
[2019-02-20] VITALS: BP 113/62
[2019-02-20] MEDS: BLOOD SUGAR DIAGNOSTIC 1 EACH STRIP IN SCH ×4 (00:05→17:15)
[2019-02-20 04:00] VITALS: BP 107/60
--- NOTE | 2019-02-20 05:51 | NUR ---
PATIENT RECEIVED ON TRACH TO VENT WITH SETTINGS OF AC 16, 500 VT, 40%, +5. SUCTIONED FOR MODERATE, THICK, YELLOW SECRETIONS. AMBU BAG AT BEDSIDE. VENT AND PULSE OXIMETER ALARMS AUDIBLE AND VISIBLE. VENT PLUGGED INTO RED OUTLET. Addendum: 02/20/19 at 0553 by WILBER SMYTH RT Amended: Links added.
[2019-02-20 06:23] LABS: BASOPHILS % (AUTO) 0.4 % (0.0-2.0); HEMATOCRIT 27 % (39-51); LYMPHOCYTES # (AUTO) 1.1 /CMM (0.8-4.8); LYMPHOCYTES % (AUTO) 15.5 % (20.0-44.0); MEAN CORPUSCULAR HGB CONC 34 g/dl (31.0-36.0); MEAN CORPUSCULAR VOLUME 91 fL (80-96); MONOCYTES % (AUTO) 13.3 % (2.0-12.0); NEUTROPHILS % (AUTO) 67.8 % (43.0-81.0); PLATELET COUNT (AUTO) 381 /CMM (150-450); RED BLOOD CELL COUNT(AUTO) 2.93 MIL/uL (4.5-6.0); WHITE BLOOD COUNT (AUTO) 7.4 K/uL (4.3-11.0)
[2019-02-20 06:51] LABS: PHENYTOIN (DILANTIN) 12.4 ug/ml (10.0-20.0)
[2019-02-20 06:58] LABS: ALBUMIN 2.2 g/dL (3.4-5.0); BILIRUBIN,TOTAL 0.2 mg/dL (0.2-1.0); CALCIUM, SERUM 8.9 mg/dL (8.5-10.1); CREATININE 2.3 mg/dL (0.6-1.3); MAGNESIUM 1.7 mg/dL (1.8-2.4); PHOSPHORUS 3.4 mg/dL (2.5-4.9); POTASSIUM 3.3 mmol/L (3.5-5.1); TOTAL PROTEIN, SERUM 7.9 g/dL (6.4-8.2)
--- NOTE | 2019-02-20 06:59 | NUR ---
RN CLOSING NOTES PATIENT REMAINS IN BED, ASLEEP, RESTING COMFORTABLY, EASILY AWAKENED. NONVERBAL. ON TELEMONITOR. TOLERATING VENT SETTINGS WELL. NO SIGNS OF RESPIRATORY DISTRESS. BREATHING EVEN AND UNLABORED. ORAL BLEEDING NOTED, SUCTIONED PRN. IV SITES RFA #20, REMAINS INTACT AND PATENT, IVF INFUSING ORDERED, NO S/S OF INFECTION/INFILTRATION NOTED. CONDOM CATHETER IN PLACE, INTACT AND FLOWING WELL. VITALS STABLE. NO ACUTE CHANGES OVERNIGHT. ALL NEEDS MET. PATIENT TURNED EVERY 2 HOURS. PATIENT KEPT CLEAN, DRY, AND COMFORTABLE. SAFETY PRECAUTIONS IMPLEMENTED; CALL LIGHT WITHIN REACH, BED LOWEST POSITION, BED LOCKED, SIDE RAILS UP X2. WILL ENDORSE TO DAYSHIFT NURSE FOR CONTINUITY OF CARE.
--- NOTE | 2019-02-20 07:30 | NUR ---
GENERAL OFFICE ASSOCIATE AM NOTES PATIENT IN BED, AWAKE, NONVERBAL. ON TELE MONITOR SR WITH HR 80'S. WITH PORTEX 9 TRACH TO MECHANICAL VENT, SETTING ORDERED. BREATHING EVEN AND UNLABORED TOLERATING VENT SETTINGS, SATURATING 100%. ORAL BLEEDING NOTED, WILL SUCTION PRN. SIGNS OF RESPIRATORY OR CARDIAC DISTRESS NOTED AT THIS TIME. IV SITES RIGHT FA 20G, INFILTRATED, SWELLING. IVF STOPPED FOR NOW. NOTIFIED MD FOR MIDLINE INSERTION. PT REMAINS NPO PER HOSPITALIST ORDER. 16F RAMON IN GTUBE SITE NOTED, CDI DRESSING . SAFETY MEASURES IN PLACE; ASPIRATION PRECAUTIONS IN PLACE, BED LOCKED AND IN LOWEST POSITION, SIDE RAILS UP X3, BED ALARM ON, CALL LIGHT WITHIN REACH, HOB ELEVATED. WILL CONT TO MONITOR PT CLOSELY.
[2019-02-20 08:00] VITALS: BP 116/70
[2019-02-20] MEDS: CARVEDILOL 6.25 MG TABLET GT SCH ×2 (08:54→20:20)
[2019-02-20] MEDS: ESOMEPRAZOLE MAGNESIUM 40 MG SUSPDR.PKT GT SCH (08:55)
[2019-02-20] MEDS: LACTOBACILLUS RHAMNOSUS GG 1 EACH CAP.SPRINK GT SCH ×2 (08:55→17:00)
[2019-02-20] MEDS: FERROUS SULFATE UDC 300 MG/5 ML UDC GT SCH (08:55)
--- NOTE | 2019-02-20 10:39 | NUR ---
POWDERED METAL SUPERVISOR NOTES DR. KAYLAH WORTHINGTON JUST FINISHED PUTTING LEFT UPPER MIDLINE G 20
[2019-02-20] MEDS: LEVETIRACETAM (500MG) 500 MG in IV NS 0.9% 100 ML IV SCH ×2 (10:48→20:22)
[2019-02-20] MEDS: CHLORHEXIDINE GLUCONATE 15 ML UDC MM SCH ×2 (10:48→17:14)
[2019-02-20] MEDS ORDERED: POTASSIUM CL. PREMIX PERIPHER. 50 ML IV SCH (11:00)
[2019-02-20 12:00] VITALS: BP_SYST 120; BP_DIAS 72; BP_DIAS 75
[2019-02-20] MEDS ORDERED: VANCOMYCIN 1 GM in IV D5W 250 ML IV SCH (12:00)
[2019-02-20] MEDS ORDERED: Magnesium 1GM/D5W 100ML PREMIX 100 ML IV SCH (13:00)
[2019-02-20] MEDS: CEFEPIME 1 GM in IV D5W 50 ML IV SCH (14:16)
[2019-02-20 16:00] VITALS: BP 126/62
--- NOTE | 2019-02-20 16:45 | NUR ---
RT Patient received trach'd and on ventilator with ordered settings. Vent is plugged into the red outlet w [facility] @ hob. Patient suctioned with no adverse reactions. Patient is stable but has persistent cough. Will pass on report to hotel night auditor RT. Addendum: 02/20/19 at 1822 by VASYL GARCIA RT Amended: Links added.
[2019-02-20] MEDS: PANTOPRAZOLE 40 MG VIAL IV SCH (17:14)
--- NOTE | 2019-02-20 19:00 | NUR ---
SPORTS ATTORNEY CLOSING NOTES PATIENT IN BED, NONVERBAL. OBTUNDED, ON TELE MONITOR SR WITH HR 80'S. WITH PORTEX 9 TRACH TO MECHANICAL VENT, SETTING ORDERED. BREATHING EVEN AND UNLABORED TOLERATING VENT SETTINGS, SATURATING 100%. ORAL BLEEDING NOTED,SUCTIONED PRN. NO SIGNS OF RESPIRATORY OR CARDIAC DISTRESS NOTED AT THIS TIME.ROMAN MIDLINE WITH ONGOING IVF INFUSING WELL. PT REMAINS NPO PER HOSPITALIST ORDER. 16F RAMON IN GTUBE SITE NOTED, CDI DRESSING . SAFETY MEASURES IN PLACE; ASPIRATION PRECAUTIONS IN PLACE, BED LOCKED AND IN LOWEST POSITION, SIDE RAILS UP X3, BED ALARM ON, CALL LIGHT WITHIN REACH, HOB ELEVATED. ALL NEEDS MET FOR NOW. SUCTIONED PRN. TURNED AND REPOSITIONED Q 2HOURS. PM CARE DONE. FOR EGD AND GASTROJEJUSNOSTOMY PLACEMENT. CONSENT SIGNED.
--- NOTE | 2019-02-20 19:38 | NUR ---
PT RCVD TRACH'D PORTEX 9 ON VENT WITH NOTED SETTINGS. PT IS AWAKE AND NON VERBAL. PT RESPONDS TO STIMULI WHEN SUCTIONED. NO RESPIRATORY DISTRESS NOTED. SUCTIONED MODERATE AMOUNT OF YELLOW THICK SECRETIONS. VICE PRESIDENT RISK MANAGEMENT DONE. VENT PLUGGED INTO RED OUTLET, ALARMS SET AND AUDIBLE, AMBU BAG AT BEDSIDE. WILL CONTINUE TO MONITOR THE PT FOR ANY CHANGES.
--- NOTE | 2019-02-20 19:47 | NUR ---
EDGE WORKER NOTES RECEIVED PT ON BED. NON VERBAL. ON [facility] VENT SETTING, NO RESPIRATORY DISTRESS NOTED. ON TELE MONITOR SR 90. GTUBE CLAMPED. IV ACCESS ON ROMAN MIDLINE WITH D51/2NS RUNNING @ 50CC/HR. CONDOM CATH DRAINING YELLOW URINE. HEAD OF BED ELEVATED. SIDE RAILS UP. CALL LIGHT WITHIN REACH. BED ALARM ON. BED IN LOW AND LOCKED POSITION. WILL MONITOR PT CLOSELY.
[2019-02-20 20:00] VITALS: BP 151/66
[2019-02-20] MEDS: ATORVASTATIN 40 MG TABLET GT SCH (20:20)
[2019-02-20] MEDS: CEFTRIAXONE 1 G in IV D5W 50 ML IV SCH (21:25)
[2019-02-21] VITALS: BP_SYST 156; BP_DIAS 66; BP_DIAS 71
[2019-02-21] MEDS: IV D5/0.45 NACL 1,000 ML IV PRN ×2 (00:13→20:00)
[2019-02-21 04:00] VITALS: BP 119/67
[2019-02-21] MEDS: BLOOD SUGAR DIAGNOSTIC 1 EACH STRIP IN SCH ×4 (05:04→18:24)
--- NOTE | 2019-02-21 07:08 | NUR ---
MORTICIAN INVESTIGATOR NOTES NO ACUTE CHANGES NOTED DURING THE SHIFT. PROVIDED COMFORT AND SAFETY. NO RESPIRATORY DISTRESS NOTED. PT KEPT NPO. WILL ENDORSE TO THE AM NURSE FOR CONTINUITY OF CARE.
--- NOTE | 2019-02-21 07:20 | NUR ---
SENIOR TEST ENGINEER OPENING NOTES PATIENT IN BED, AWAKE, NONVERBAL. ON TELE MONITOR SR WITH HR 76. WITH PORTEX 9 TRACH TO MECHANICAL VENT, SETTING ORDERED. BREATHING EVEN AND UNLABORED TOLERATING VENT SETTINGS, SATURATING 100%. NO SIGNS OF RESPIRATORY/CARDIAC DISTRESS OR SOB NOTED AT THIS TIME. IV SITES ROMAN MIDLINE, PATENT, D5 1/2 NS RUNNING @ 50ML/HR, NO SIGN OF INFILTRATION NOTED. PT REMAINS NPO PER HOSPITALIST ORDER. PT HAS CONDOM CATHETER DRAINING TO GRAVITY, YELLOWAND CLEAR URINE OUTPUT. SAFETY MEASURES IN PLACE; ASPIRATION PRECAUTIONS IN PLACE, BED LOCKED AND IN LOWEST POSITION, SIDE RAILS UP X3, BED ALARM ON, CALL LIGHT WITHIN REACH, HOB ELEVATED. WILL CONT TO MONITOR PT CLOSELY.
[2019-02-21 07:35] LABS: CALCIUM, SERUM 8.5 mg/dL (8.5-10.1); CREATININE 2.5 mg/dL (0.6-1.3); POTASSIUM 3.6 mmol/L (3.5-5.1)
[2019-02-21 08:00] VITALS: BP 109/55
--- NOTE | 2019-02-21 08:54 | NUR ---
WOUND CARE CONSULT: PT SEEN FOR RT FOREARM SKIN TEAR. NO SIGN OF INFECTION NOTED. RECOMMENDATIONS MADE FOR WOUND CARE AND SKIN PROTECTION. DISCUSSED WITH NURSING STAFF. WILL SEE PRN. Addendum: 02/21/19 at 0855 by MANISHA HOLLAND WNDNU Amended: Links added.
[2019-02-21] MEDS: FERROUS SULFATE UDC 300 MG/5 ML UDC GT SCH (09:00)
[2019-02-21] MEDS: CARVEDILOL 6.25 MG TABLET GT SCH ×2 (09:00→21:00)
[2019-02-21] MEDS: LACTOBACILLUS RHAMNOSUS GG 1 EACH CAP.SPRINK GT SCH ×2 (09:00→16:46)
[2019-02-21] MEDS: ESOMEPRAZOLE MAGNESIUM 40 MG SUSPDR.PKT GT SCH (09:00)
[2019-02-21] MEDS: LEVETIRACETAM (500MG) 500 MG in IV NS 0.9% 100 ML IV SCH ×2 (09:43→21:17)
[2019-02-21] MEDS: CHLORHEXIDINE GLUCONATE 15 ML UDC MM SCH ×2 (09:44→16:46)
--- NOTE | 2019-02-21 09:47 | NUR ---
TALK SHOW HOST NOTE MORNING MEDICATIONS DID NOT ADMINISTERED B/C OF MALFUNCTION G-TUBE. PT GOING TO HAVE EGD AND COLONOSCOPY THIS AFTERNOON.
[2019-02-21 12:00] VITALS: BP 113/61
[2019-02-21] MEDS: CEFEPIME 1 GM in IV D5W 50 ML IV SCH ×3 (13:57)
--- NOTE | 2019-02-21 15:38 | NUR ---
RF MANAGER NOTE TALKED TO OR DEPARTMENT. PT WILL HAVE EGD WITH G-TUBE REPLACEMENT TOMORROW 02/22/19.
[2019-02-21 16:00] VITALS: BP 128/67
[2019-02-21] MEDS: PANTOPRAZOLE 40 MG VIAL IV SCH (16:45)
--- NOTE | 2019-02-21 17:59 | NUR ---
RT Patient received trach'd and on ventilator with ordered settings. Vent is plugged into the red outlet w [facility] @ [facility]. Patient suctioned with no adverse reactions. Patient is stable. No respiratory distress noted through out shift. Will pass on report to police shift commander RT. Addendum: 02/21/19 at 1838 by VASYL GARCIA RT Amended: Links added.
--- NOTE | 2019-02-21 19:09 | NUR ---
BAGEL MAKER CLOSING NOTES NO ACUTE CHANGES NOTED DURING THE SHIFT. PROVIDED COMFORT AND SAFETY. NO RESPIRATORY/CARDIAC DISTRESS NOTED. PT KEPT NPO. PATIENT HAD THICK ORAL SECRETION DURING THE SHIFT AND AND ORAL SUCTION DONE PRN. TRACH DRESSING CHANGED TWICE. ALL WOUND TX DONE ORDERED. SAFETY AND ASPIRATION PRECAUTION IN PLACE. BED LOCKED, LOW, SIDE RAILS UPX3, CALL LIGHT WITHIN REACH AND HOB ELEVATED. WILL ENDORSE TO THE PM NURSE FOR CONTINUITY OF CARE.
--- NOTE | 2019-02-21 19:30 | NUR ---
RN INITIAL SHIFT NOTES RECEIVED PATIENT IN BED, ASLEEP, EYES CLOSED, OBTUNDED/NONVERBAL AT BASELINE, REACTIVE TO TACTILE STIMULI. TRACH IS MIDLINE AND INTACT, ON MECHANICAL VENTILATION, TOLERATING WELL, SETTINGS: AC 16 TV 500, FIO2 40%, PEEP 5. NOTED WITH COPIOUS AMOUNTS OF ORAL AND TRACHEAL SECRETIONS, THICK/YELLOW, SUCTIONED FOR AIRWAY CLEARANCE. NOTED WITH RAMON CATHETER IN GASTRIC STOMA TO KEEP OPEN, CLAMPED AT THIS TIME, PATIENT SCHEDULED FOR EGD IN AM. CONDOM CATHETER LEAKING, DIAPER SOAKED, CONDOM CATHETER REPLACED. ROMAN MIDLINE PATENT AND INTACT, IVF D5 1/2 NS @ 50ML/HR, SITE FREE FROM ANY S/S OF INFILTRATION OR PHLEBITIS. BED IN LOWEST AND LOCKED POSITION. WILL CONTINUE TO CLOSELY MONITOR THE PATIENT
[2019-02-21 20:00] VITALS: BP 112/67
[2019-02-21] MEDS: ATORVASTATIN 40 MG TABLET GT SCH (21:17)
[2019-02-22] VITALS: BP 119/75
[2019-02-22] MEDS: BLOOD SUGAR DIAGNOSTIC 1 EACH STRIP IN SCH ×4 (01:05→18:28)
[2019-02-22] MEDS: CEFEPIME 1 GM in IV D5W 50 ML IV SCH ×2 (01:05→16:00)
[2019-02-22 04:00] VITALS: BP 110/62
--- NOTE | 2019-02-22 05:47 | NUR ---
RT NOTE PATIENT RECEIVED ON MECHANICAL VENT. WITH NOTED SETTINGS. VENTILATOR IS PLUGGED TO RED OUTLET AND ALARMS ARE SET AND AUDIBLE. TRACH IS PATENT AND SECURED. SPARE TRACH AND BMV AT BEDSIDE. SUCTION MODERATE YELLOW THICK SECRETIONS THROUGH OUT THE NIGHT. BREATH SOUNDS WERE COARSE BEFORE SUCTION AND CLEAR AFTER SUCTION. PATIENT MAINTAINED HEART RATE, RESPIRATORY RATE, AND O2 SATURATIONS WITHIN NORMAL RANGES. NO SOB NOTED. REPORT WILL BE GIVEN TO REIMBURSEMENT SPEC. Addendum: 02/22/19 at 0549 by LENIN HADDAD RT Amended: Links added.
[2019-02-22 06:25] LABS: BASOPHILS # (AUTO) 0.1 /CMM (0.0-0.2); EOSINOPHILS % (AUTO) 4.4 % (0.0-6.0); HEMATOCRIT 23 % (39-51); HEMOGLOBIN 7.8 g/dL (13.5-17.5); LYMPHOCYTES # (AUTO) 1.2 /CMM (0.8-4.8); LYMPHOCYTES % (AUTO) 15.9 % (20.0-44.0); MEAN CORPUSCULAR HGB CONC 33 g/dl (31.0-36.0); MEAN CORPUSCULAR VOLUME 91 fL (80-96); MONOCYTES # (AUTO) 0.8 /CMM (0.1-1.30); MONOCYTES % (AUTO) 11.2 % (2.0-12.0); NEUTROPHILS # (AUTO) 4.9 /CMM (1.8-8.9); NEUTROPHILS % (AUTO) 67.5 % (43.0-81.0); PLATELET COUNT (AUTO) 413 /CMM (150-450); RED BLOOD CELL COUNT(AUTO) 2.57 MIL/uL (4.5-6.0); WHITE BLOOD COUNT (AUTO) 7.3 K/uL (4.3-11.0)
[2019-02-22 06:56] LABS: CALCIUM, SERUM 8.5 mg/dL (8.5-10.1); CREATININE 2.3 mg/dL (0.6-1.3); POTASSIUM 3.2 mmol/L (3.5-5.1)
--- NOTE | 2019-02-22 07:00 | NUR ---
RN CLOSING NOTES PATIENT RESTING IN BED, APPEARS COMFORTABLE, NO ACUTE DISTRESS, NO ACUTE CHANGES THROUGHOUT THE SHIFT. RAMON CATHETER REMAINS IN GT STOMA TO KEEP OPEN. PATIENT SCHEDULED FOR PROCEDURE LATER THIS AM. WILL ENDORSE THE PATIENT TO THE AM SHIFT NURSE FOR CONTINUITY OF CARE Addendum: 02/22/19 at 0727 by VERONICA TORRES RN THICK, AGUILLON AND CLEAR SECRETIONS NOTED FROM TRACH AND MOUTH, SUCTIONED PERIODICALLY THROUGHOUT THE SHIFT FOR AIRWAY CLEARANCE
--- NOTE | 2019-02-22 07:30 | NUR ---
DISPOSAL OPERATOR OPENING NOTES PATIENT IN BED, AWAKE, NONVERBAL. ON TELE MONITOR SR WITH HR 64. WITH PORTEX 9 TRACH TO MECHANICAL VENT, SETTING ORDERED. BREATHING EVEN AND UNLABORED TOLERATING VENT SETTINGS, SATURATING 100%. NO SIGNS OF RESPIRATORY/CARDIAC DISTRESS OR SOB NOTED AT THIS TIME. IV SITES ROMAN MIDLINE, PATENT, D5 1/2 NS RUNNING @ 50ML/HR, NO SIGN OF INFILTRATION NOTED. PT REMAINS NPO PER HOSPITALIST ORDER. PT HAS CONDOM CATHETER DRAINING TO GRAVITY, YELLOW AND CLEAR URINE OUTPUT. SAFETY MEASURES IN PLACE; ASPIRATION PRECAUTIONS IN PLACE, BED LOCKED AND IN LOWEST POSITION, SIDE RAILS UP X3, BED ALARM ON, CALL LIGHT WITHIN REACH, HOB ELEVATED. WILL CONT TO MONITOR PT CLOSELY.
[2019-02-22 08:00] VITALS: BP 125/63
[2019-02-22] MEDS: FERROUS SULFATE UDC 300 MG/5 ML UDC GT SCH (09:00)
[2019-02-22] MEDS: ESOMEPRAZOLE MAGNESIUM 40 MG SUSPDR.PKT GT SCH (09:00)
[2019-02-22] MEDS: LACTOBACILLUS RHAMNOSUS GG 1 EACH CAP.SPRINK GT SCH ×2 (09:00→17:00)
[2019-02-22] MEDS: CARVEDILOL 6.25 MG TABLET GT SCH ×2 (09:00→21:19)
[2019-02-22] MEDS: LEVETIRACETAM (500MG) 500 MG in IV NS 0.9% 100 ML IV SCH ×2 (09:17→21:22)
[2019-02-22] MEDS: CHLORHEXIDINE GLUCONATE 15 ML UDC MM SCH ×2 (09:17→16:12)
[2019-02-22] MEDS ORDERED: POTASSIUM CHLORIDE 20 MEQ POWDER PACKET GT ONE (10:00)
[2019-02-22 12:00] VITALS: BP 120/72
--- NOTE | 2019-02-22 12:03 | NUR ---
DATA VISUALIZATION DEVELOPER NOTE PT NPO BECAUSE OF GTUBE MALFUNCTIONING. CALLED PHARMACY TO CHANGE TO POTASSIUM POWDER GT ROUTE TO IV.
[2019-02-22] MEDS: POTASSIUM CL. PREMIX PERIPHER. 50 ML IV SCH ×3 (12:49→18:28)
[2019-02-22] MEDS ORDERED: ANESTHESIA TRAY IN PYXIS 1 EA TRAY MC ONE (14:52)
--- NOTE | 2019-02-22 15:08 | NUR ---
STATION INSTALLER NOTES OR TEAM AT BEDSIDE, DOING EGD WITH PEG REPLACEMENT.
[2019-02-22 16:00] VITALS: BP 128/68
--- NOTE | 2019-02-22 16:06 | NUR ---
PRACTICAL NURSING FACULTY NOTE GTUBE REPLACEMENT DONE. VS STABLE, HR 88, SATURATION 98%, BP 154/73 AND RR 18. ORDERED TO START G-TUBE FEEDING AT 18:00. NUTRITION CONSULT REQUESTED TO KNOW AT WHAT RATE TO START THE FEEDING.
[2019-02-22] MEDS: PANTOPRAZOLE 40 MG VIAL IV SCH (16:11)
[2019-02-22] MEDS ORDERED: GLUCERNA 1.2 1,000 ML BOTTLE NG PRN (18:00)
--- NOTE | 2019-02-22 18:24 | NUR ---
PHONE BANKER NOTE GLURENNA 1.2STARTED @ 20 ML/HR. MYSQL DATABASE ADMINISTRATOR CONSULT ORDER PLACED. PATEINT'S BLOOD SUGAR 129. IV DEXTROSE STOPPED.
--- NOTE | 2019-02-22 19:15 | NUR ---
RN OPENING NOTES: PATIENT IN BED. NONVERBAL/OBTUNDED. NO RESPIRATORY DISTRESS. PATIENT ON MECHANICAL VENT TRACH SETTINGS ORDERED AND TOLERATING WELL. PATIENT SATURATION 96%. ON CARDIAC MONITORING SHOWING SR WITH HR 90s. HOB ELEVATED. GT SITE INTACT AND GT FEEDING AT 20 ML/HR TOLERATING WELL. NO RESIDUAL. CONDOM CATH IN PLACE DRAINING CLEAR YELLOW URINE. ROMAN MIDLINE INTACT, PATENT, AND FLUSHING WELL. SALINE LOCKED. SAFETY MEASURES IMPLEMENTED. SIDE RAILS UP X 2. CALL LIGHT PLACED WITHIN REACH. WILL CONT. TO MONITOR.
--- NOTE | 2019-02-22 19:53 | NUR ---
BUILDING CUSTODIAN CLOSING NOTES NO ACUTE CHANGES NOTED DURING THE SHIFT. PROVIDED COMFORT AND SAFETY. NO RESPIRATORY/CARDIAC DISTRESS NOTED. GTUBE REPLACED TODAY. GLUCERAL 1.2 STARTED AT 18:00 @ 20 ML/HR, NO RESIDUAL AT THIS TIME. PATIENT HAD THICK ORAL SECRETION DURING THE SHIFT AND AND ORAL SUCTION DONE PRN. TRACH DRESSING CHANGED. ALL WOUND TX DONE ORDERED. SAFETY AND ASPIRATION PRECAUTION IN PLACE. BED LOCKED, LOW, SIDE RAILS UPX3, CALL LIGHT WITHIN REACH AND HOB ELEVATED. ENDORSED TO THE PM NURSE FOR CONTINUITY OF CARE.
[2019-02-22 20:00] VITALS: BP 118/63
[2019-02-22] MEDS: ATORVASTATIN 40 MG TABLET GT SCH (21:18)
[2019-02-22] MEDS: IV D5/0.45 NACL 1,000 ML IV PRN (22:23)
[2019-02-23] VITALS: BP 105/64
[2019-02-23] MEDS: CEFEPIME 1 GM in IV D5W 50 ML IV SCH ×2 (00:05→13:18)
[2019-02-23] MEDS: BLOOD SUGAR DIAGNOSTIC 1 EACH STRIP IN SCH ×4 (00:31→17:06)
--- NOTE | 2019-02-23 00:50 | NUR ---
PT RCVD CHARLES'D ON MECHANICAL VENT WITH CHARTED SETTINGS. SX DONE. PT CHARLES IS PATENT AND SECURE. VENT PLUGGED INTO RED OUTLET. VENT ALARMS ARE ON AND AUDIBLE. AMBU BAG AT BEDSIDE. Addendum: 02/23/19 at 0050 by HENRRY GOODMAN RT Amended: Links added.
[2019-02-23 04:00] VITALS: BP 124/55
[2019-02-23 06:37] LABS: CALCIUM, SERUM 8.8 mg/dL (8.5-10.1); CREATININE 2.1 mg/dL (0.6-1.3); POTASSIUM 3.3 mmol/L (3.5-5.1)
--- NOTE | 2019-02-23 07:10 | NUR ---
RN CLOSING NOTES: PATIENT IN BED. NONVERBAL/OBTUNDED. NO RESPIRATORY DISTRESS. NO S/S OF PAIN. NO FACIAL GRIMACING. NO SIGNS OF ACTIVE BLEEDING. ON SAP PPM CONSULTANT = SR 70s. HOB ELEVATED. INCREASED GT FEEDING RATE GRADUALLY DURING SHIFT, TOLERATED WELL, CURRENTLY AT 60 MLS/HR. NO RESIDUALS. SAFETY MEASURES IMPLEMENTED. ENDORSED TO NEXT SHIFT NURSE FOR CONTINUITY OF CARE.
[2019-02-23 08:24] VITALS: BP 118/78
[2019-02-23] MEDS: LACTOBACILLUS RHAMNOSUS GG 1 EACH CAP.SPRINK GT SCH ×2 (09:13→16:53)
[2019-02-23] MEDS: CARVEDILOL 6.25 MG TABLET GT SCH ×2 (09:18→21:56)
[2019-02-23] MEDS: FERROUS SULFATE UDC 300 MG/5 ML UDC GT SCH (09:18)
[2019-02-23] MEDS: LEVETIRACETAM SOL (5 ML) 100 MG/ML UDC GT SCH ×2 (09:18→21:55)
[2019-02-23] MEDS: CHLORHEXIDINE GLUCONATE 15 ML UDC MM SCH ×2 (09:18→16:53)
--- NOTE | 2019-02-23 11:36 | NUR ---
Diet order per consultation entry. Patient tolerates feeding thus far. Fuad Wolfe RN
[2019-02-23] MEDS ORDERED: POTASSIUM CHLORIDE 10 MEQ TABLET.SA PO ONE (12:30)
[2019-02-23 12:45] VITALS: BP 133/50
[2019-02-23] MEDS: PANTOPRAZOLE 40 MG VIAL IV SCH (15:35)
[2019-02-23 16:08] VITALS: BP 118/68
[2019-02-23] MEDS: GLUCERNA 1.2 1,000 ML BOTTLE NG PRN (16:53)
--- NOTE | 2019-02-23 19:05 | NUR ---
rN OPENING NOTES: PATIENT IN BED. NONVERBAL/OBTUNDED. NO RESPIRATORY DISTRESS. PATIENT ON MECHANICAL VENT TRACH SETTINGS ORDERED AND TOLERATING WELL. PATIENT SATURATION 96%. ON CARDIAC MONITORING SHOWING SR WITH HR 70s. HOB ELEVATED. GT SITE INTACT. GT FEEDING AT 60 ML/HR TOLERATING WELL. NO RESIDUAL. CONDOM CATH IN PLACE DRAINING CLEAR YELLOW URINE. ROMAN MIDLINE INTACT, PATENT, AND FLUSHING WELL. SAFETY MEASURES IMPLEMENTED. SIDE RAILS UP X 2. CALL LIGHT PLACED WITHIN REACH. WILL CONT. TO MONITOR.
[2019-02-23 20:00] VITALS: BP 138/75
[2019-02-23] MEDS: IV D5/0.45 NACL 1,000 ML IV PRN (20:19)
[2019-02-23] MEDS: ATORVASTATIN 40 MG TABLET GT SCH (21:55)
[2019-02-24] VITALS: BP 126/68
[2019-02-24] MEDS: CEFEPIME 1 GM in IV D5W 50 ML IV SCH ×2 (00:01→12:16)
[2019-02-24] MEDS: BLOOD SUGAR DIAGNOSTIC 1 EACH STRIP IN SCH ×5 (00:18→23:51)
[2019-02-24 06:00] VITALS: BP 118/53
[2019-02-24 06:28] LABS: BASOPHILS # (AUTO) 0.1 /CMM (0.0-0.2); BASOPHILS % (AUTO) 0.7 % (0.0-2.0); EOSINOPHILS % (AUTO) 5.6 % (0.0-6.0); HEMATOCRIT 25 % (39-51); HEMOGLOBIN 8.3 g/dL (13.5-17.5); LYMPHOCYTES # (AUTO) 1.3 /CMM (0.8-4.8); LYMPHOCYTES % (AUTO) 15.6 % (20.0-44.0); MEAN CORPUSCULAR HGB CONC 33 g/dl (31.0-36.0); MEAN CORPUSCULAR VOLUME 90 fL (80-96); MONOCYTES # (AUTO) 0.8 /CMM (0.1-1.30); MONOCYTES % (AUTO) 8.7 % (2.0-12.0); NEUTROPHILS % (AUTO) 69.4 % (43.0-81.0); PLATELET COUNT (AUTO) 505 /CMM (150-450); RED BLOOD CELL COUNT(AUTO) 2.81 MIL/uL (4.5-6.0); WHITE BLOOD COUNT (AUTO) 8.6 K/uL (4.3-11.0)
[2019-02-24 06:55] LABS: CALCIUM, SERUM 8.6 mg/dL (8.5-10.1); CREATININE 1.8 mg/dL (0.6-1.3); MAGNESIUM 1.7 mg/dL (1.8-2.4); POTASSIUM 3.4 mmol/L (3.5-5.1)
--- NOTE | 2019-02-24 07:10 | NUR ---
RN CLOSING NOTES: PATIENT IN BED. NONVERBAL/OBTUNDED. NO RESPIRATORY DISTRESS. NO SIGNS OF BLEEDING. SAFETY MEASURES IMPLEMENTED. ENDORSED TO NEXT SHIFT NURSE FOR CONTINUITY OF CARE.
--- NOTE | 2019-02-24 07:30 | NUR ---
TELE/RN OPENING NOTES RECEIVED PATIENT IN BED RESTING COMFORTABLY. ABLE TO RESPOND TO TACTILE STIMULI. NO PAIN OR ACUTE DISTRESS AT THIS TIME. RESPIRATION EVEN AND UNLABORED. SKIN IS DRY WARM TO TOUCH. PATIENT ON MECHANICAL VENT. ABLE TO TOLERATE VENT SETTINGS ORDERED. PATIENT SATURATION 98%. ON CARDIAC MONITORING SHOWING SR WITH HR 80s. HOB ELEVATED AT ALL TIMES. GT SITE INTACT AND PATENT. TOLERATING WELL. NO RESIDUAL. CONDOM CATH IN PLACE DRAINING CLEAR YELLOW URINE. ROMAN MIDLINE INTACT, PATENT, AND FLUSHING WELL. NO S/S OF INFECTION OR INFILTRATION. ALL NEEDS ANTICIPATED. CALL LIGHT WITHIN REACHED. BED LOCKED AND IN LOWEST POSITION. SAFETY MAINTAINED. WILL CONTINUE TO MONITOR CLOSELY.
[2019-02-24 08:00] VITALS: BP 130/73
--- NOTE | 2019-02-24 08:07 | NUR ---
PT RCVD CHARLES'D ON MECHANICAL VENT WITH CHARTED SETTINGS. SX DONE. PT CHARLES IS PATENT AND SECURE. VENT PLUGGED INTO RED OUTLET. VENT ALARMS ARE ON AND AUDIBLE. AMBU BAG AT BEDSIDE. Addendum: 02/24/19 at 0808 by HENRRY GOODMAN RT Amended: Links added.
[2019-02-24] MEDS: CHLORHEXIDINE GLUCONATE 15 ML UDC MM SCH ×2 (08:24→16:04)
[2019-02-24] MEDS: LACTOBACILLUS RHAMNOSUS GG 1 EACH CAP.SPRINK GT SCH ×2 (08:24→16:05)
[2019-02-24] MEDS: FERROUS SULFATE UDC 300 MG/5 ML UDC GT SCH (08:24)
[2019-02-24] MEDS: LEVETIRACETAM SOL (5 ML) 100 MG/ML UDC GT SCH ×2 (08:24→21:18)
[2019-02-24] MEDS: CARVEDILOL 6.25 MG TABLET GT SCH ×2 (08:24→21:19)
[2019-02-24] MEDS ORDERED: Magnesium 1GM/D5W 100ML PREMIX 100 ML IV SCH (11:00)
[2019-02-24] MEDS ORDERED: POTASSIUM CL. PREMIX PERIPHER. 50 ML IV SCH (11:30)
[2019-02-24 12:00] VITALS: BP 128/76
[2019-02-24 16:00] VITALS: BP_SYST 120; BP_DIAS 51; BP_DIAS 54
[2019-02-24] MEDS: PANTOPRAZOLE 40 MG VIAL IV SCH (16:04)
[2019-02-24] MEDS: GLUCERNA 1.2 1,000 ML BOTTLE NG PRN (16:30)
[2019-02-24] MEDS: IV D5/0.45 NACL 1,000 ML IV PRN (16:42)
--- NOTE | 2019-02-24 18:29 | NUR ---
TELE/RN CLOSING NOTES PATIENT CONTINUES TO REMAIN IN STABLE CONDITION THROUGHOUT THE SHIFT. PROVIDED COMFORT AND SAFETY. PATIENT ON MECHANICAL VENT. ABLE TO TOLERATE VENT SETTINGS ORDERED. PATIENT SATURATION 98%. ON CARDIAC MONITORING SHOWING SR WITH HR 80s. HOB ELEVATED AT ALL TIMES. GT SITE INTACT AND PATENT. TOLERATING WELL. NO RESIDUAL. CONDOM CATH IN PLACE DRAINING CLEAR YELLOW URINE. ROMAN MIDLINE INTACT, PATENT, AND FLUSHING WELL. NO S/S OF INFECTION OR INFILTRATION. ALL NEEDS ANTICIPATED. CALL LIGHT WITHIN REACHED. BED LOCKED AND IN LOWEST POSITION. SAFETY MAINTAINED. WILL CONTINUE TO MONITOR CLOSELY. ENDORSED TO PM NURSE FOR LAUREN.
--- NOTE | 2019-02-24 19:25 | NUR ---
TELE/RN notes Patient received in bed. No S/S of acute distress noted, respiration even and unlabored. No SOB noted. Trach intact, patent, connected to vent with prescribed settings. feeding-tube in place, patent, connected to feeding as ordered. HOB elevated at all the time, no residual at this time. condom cath in place, patent, draining well with clear yellow urine. patient obtunded, no S/S of pain noted. Patient on tele monitoring with Sinus Rhythm. IV sites noted with no S/S of infection/ infiltration, flushing well, running with fluids as ordered. Safety maintained, bed at the lowest locked position. call light within reach. will continue to monitor patient as per plan of care.
--- NOTE | 2019-02-24 19:36 | NUR ---
RT NOTE PATIENT RECEIVED TRACH'D ON MECHANICAL VENT. PATIENT IS TOLERATING CURRENT ORDERED VENT SETTINGS. NO SIGNS OF RESPIRATORY DISTRESS NOTED. TRACH IS PATENT AND SECURE. ALARMS ARE SET AND AUDIBLE. VENT IS PLUGGED INTO RED OUTLET. EMERGENCY EQUIPMENT IS AT BEDSIDE. WILL CONTINUE TO MONITOR. Addendum: 02/24/19 at 1943 by SHAWN MARES RT Amended: Links added.
[2019-02-24 20:00] VITALS: BP 106/53
[2019-02-24] MEDS: ATORVASTATIN 40 MG TABLET GT SCH (21:19)
[2019-02-25] VITALS (7 sets, daily range): BP systolic 96–124; BP diastolic 30–71
[2019-02-25] MEDS: CEFEPIME 1 GM in IV D5W 50 ML IV SCH ×2 (00:02→12:25)
[2019-02-25] MEDS: BLOOD SUGAR DIAGNOSTIC 1 EACH STRIP IN SCH ×3 (05:57→17:10)
--- NOTE | 2019-02-25 06:55 | NUR ---
TELE/RN notes Patient remained in bed, resting comfortably, No S/S of acute distress noted, respiration even and unlabored. No SOB noted. Trach intact, patent, connected to vent with prescribed settings. feeding-tube in place, patent, connected to feeding as ordered. HOB elevated at all the time, no residual at this time. condom cath in place, patent, draining well with clear yellow urine with output of 800cc, patient obtunded, no S/S of pain noted. Patient on tele monitoring with Sinus Rhythm. IV sites noted with no S/S of infection/ infiltration, flushing well, running with fluids as ordered. All due meds given as ordered, tolerated well, kept clean and dry, all needs attendant, Safety maintained, bed at the lowest locked position. call light within reach. will endorse to AM shift nurse for LAUREN.
--- NOTE | 2019-02-25 07:15 | NUR ---
TELE/RN OPENING NOTES RECEIVED PATIENT IN BED RESTING COMFORTABLY. ABLE TO RESPOND TO TACTILE STIMULI. NO PAIN OR ACUTE DISTRESS AT THIS TIME. RESPIRATION EVEN AND UNLABORED. SKIN IS DRY WARM TO TOUCH. PATIENT ON MECHANICAL VENT. ABLE TO TOLERATE VENT SETTINGS ORDERED. PATIENT SATURATION 97%. ON CARDIAC MONITORING SHOWING SR WITH HR 75s. HOB ELEVATED AT ALL TIMES. GT SITE INTACT AND PATENT. TOLERATING WELL. NO RESIDUAL. CONDOM CATH IN PLACE DRAINING CLEAR YELLOW URINE. ROMAN MIDLINE INTACT, PATENT, AND FLUSHING WELL. NO S/S OF INFECTION OR INFILTRATION. ALL NEEDS ANTICIPATED. CALL LIGHT WITHIN REACHED. BED LOCKED AND IN LOWEST POSITION. SAFETY MAINTAINED. WILL CONTINUE TO MONITOR CLOSELY.
[2019-02-25 08:32] LABS: CALCIUM, SERUM 8.7 mg/dL (8.5-10.1); CREATININE 1.7 mg/dL (0.6-1.3); MAGNESIUM 1.8 mg/dL (1.8-2.4); POTASSIUM 3.9 mmol/L (3.5-5.1)
[2019-02-25] MEDS: LACTOBACILLUS RHAMNOSUS GG 1 EACH CAP.SPRINK GT SCH ×2 (08:40→16:16)
[2019-02-25] MEDS: FERROUS SULFATE UDC 300 MG/5 ML UDC GT SCH (08:41)
[2019-02-25] MEDS: CARVEDILOL 6.25 MG TABLET GT SCH ×2 (08:41→21:41)
[2019-02-25] MEDS: CHLORHEXIDINE GLUCONATE 15 ML UDC MM SCH ×2 (08:41→16:16)
[2019-02-25] MEDS: LEVETIRACETAM SOL (5 ML) 100 MG/ML UDC GT SCH ×2 (08:41→21:40)
[2019-02-25] MEDS: GLUCERNA 1.2 1,000 ML BOTTLE NG PRN (12:35)
[2019-02-25] MEDS: IV D5/0.45 NACL 1,000 ML IV PRN (12:35)
[2019-02-25] MEDS: PANTOPRAZOLE 40 MG VIAL IV SCH (16:16)
--- NOTE | 2019-02-25 17:00 | NUR ---
RT NOTE PATIENT RECEIVED ON MECHANICAL VENT WITH NOTED SETTINGS. VENTILATOR IS PLUGGED TO RED OUTLET AND ALARMS ARE SET AND AUDIBLE. BVM IS AT BEDSIDE. TRACH IS PATENT AND SECURED. PATIENT WAS PRODUCTIVE THROUGH OUT THE DAY SUCTIONED SMALL AMOUNT OF THIN WHITE SECRETIONS. PATIENT HAS EQUAL BILATERAL CHEST RISE WITH COARSE BILATERAL BREATH SOUNDS. SUCTION SMALL AMOUNT OF CLEAR THIN ORAL SECRETIONS. NO SOB NOTED. REPORT WILL BE PASSED TO MANAGER CLIENT SUPPORT. Addendum: 02/25/19 at 1701 by LENIN HADDAD RT Amended: Links added.
--- NOTE | 2019-02-25 18:47 | NUR ---
TELE/RN CLOSING NOTES PATIENT CONTINUES TO REMAIN IN STABLE CONDITION. PROVIDED COMFORT AND SAFETY THROUGHOUT THE SHIFT. PATIENT ON MECHANICAL VENT. ABLE TO TOLERATE VENT SETTINGS ORDERED. HOB ELEVATED AT ALL TIMES. GT SITE INTACT AND PATENT. TOLERATING WELL. NO RESIDUAL. CONDOM CATH IN PLACE DRAINING CLEAR YELLOW URINE. ROMAN MIDLINE INTACT, PATENT, AND FLUSHING WELL. NO S/S OF INFECTION OR INFILTRATION. ALL NEEDS ANTICIPATED. CALL LIGHT WITHIN REACHED. BED LOCKED AND IN LOWEST POSITION. SAFETY MAINTAINED. WILL CONTINUE TO MONITOR CLOSELY. ENDORSED TO PM NURSE FOR LAUREN.
--- NOTE | 2019-02-25 19:47 | NUR ---
TELE/RN notes Patient received in bed. awake, open eyes, No S/S of acute distress noted, respiration even and unlabored. No SOB noted. Trach intact, patent, connected to vent with prescribed settings. feeding-tube in place, patent, connected to feeding as ordered. HOB elevated at all the time, no residual at this time. condom cath in place, patent, draining well with clear yellow urine. no S/S of pain noted. Patient on tele monitoring with Sinus Rhythm. IV sites noted with no S/S of infection/ infiltration, flushing well, running with fluids as ordered. isolation precautions maintained Safety maintained, bed at the lowest locked position. call light within reach. will continue to monitor patient as per plan of care.
[2019-02-25] MEDS: ATORVASTATIN 40 MG TABLET GT SCH (21:40)
[2019-02-26] VITALS: BP 106/52
[2019-02-26] MEDS: BLOOD SUGAR DIAGNOSTIC 1 EACH STRIP IN SCH ×4 (01:00→17:35)
[2019-02-26 04:00] VITALS: BP 110/55
--- NOTE | 2019-02-26 05:26 | NUR ---
RT NOTE: RECEIVED PT ON ORDERED NOTED VENT SETTINGS. NO RESPIRATORY DISTRESS NOTED. TRACH CHECKED SECURE AND PATENT. SXD AND LAVAGED PT Q ROUND AND NEEDED. TRACH CARE DONE. EMERGENCY EQUIPMENT @ BEDSIDE. ALARMS CHECKED. VENT PLUGGED INTO RED OUTLET.
[2019-02-26 07:03] LABS: BASOPHILS # (AUTO) 0.1 /CMM (0.0-0.2); BASOPHILS % (AUTO) 0.6 % (0.0-2.0); EOSINOPHILS % (AUTO) 3.9 % (0.0-6.0); HEMATOCRIT 27 % (39-51); LYMPHOCYTES % (AUTO) 11.7 % (20.0-44.0); MEAN CORPUSCULAR HGB CONC 33 g/dl (31.0-36.0); MEAN CORPUSCULAR VOLUME 91 fL (80-96); MONOCYTES # (AUTO) 0.9 /CMM (0.1-1.30); MONOCYTES % (AUTO) 10.1 % (2.0-12.0); NEUTROPHILS # (AUTO) 6.3 /CMM (1.8-8.9); NEUTROPHILS % (AUTO) 73.7 % (43.0-81.0); PLATELET COUNT (AUTO) 454 /CMM (150-450); RED BLOOD CELL COUNT(AUTO) 2.99 MIL/uL (4.5-6.0); WHITE BLOOD COUNT (AUTO) 8.6 K/uL (4.3-11.0)
--- NOTE | 2019-02-26 07:15 | NUR ---
TELE/RN notes Patient received in bed. awake, open eyes, No S/S of acute distress noted, respiration even and unlabored. No SOB noted. Trach intact, patent, connected to vent with prescribed settings. feeding-tube in place, patent, connected to feeding as ordered. HOB elevated at all the time, no residual at this time. condom cath in place, patent, draining well with clear yellow urine, output 800. no S/S of pain noted. Patient on tele monitoring with Sinus Rhythm. IV sites noted with no S/S of infection/ infiltration, flushing well, running with fluids as ordered. isolation precautions maintained. All due meds given as ordered, tolerated well. Safety maintained, bed at the lowest locked position. call light within reach. endorse to AM shift nurse for LAUREN.
[2019-02-26 07:19] LABS: CALCIUM, SERUM 8.5 mg/dL (8.5-10.1); CREATININE 1.6 mg/dL (0.6-1.3); MAGNESIUM 1.7 mg/dL (1.8-2.4); POTASSIUM 3.7 mmol/L (3.5-5.1)
--- NOTE | 2019-02-26 07:30 | NUR ---
RN NOTE RECEIVED PATIENT ON BED, WITH SPONTANEOUS EYE OPENING, NOT ABLE TO TRACK, NON VERBAL. NOT ON ANY FORM OF DISTRESS. VENT AND TRACH DEPENDENT, TOLERATING CURRENT VENT SETTINGS. SATING WELL. TRACH SUCTIONED FOR AIRWAY PATENCY. SR ON THE TELEMONITOR WITH HR ON THE 80'S. NO INDICATION OF PAIN NOTED AT THIS TIME. GT IN PLACE AND PATENT ON CHECKING , PLACEMENT CONFIRMED THROUGH ASPIRATING RESIDUAL. NO RESIDUAL NOTED AT THIS TIME. WITH ONGOING GLUCERNA AT 70C/HR. TOLERATING WELL. MIDLINE ON THE ROMAN: IN PLACE, DRESSING CLEAN, DRY AND INTACT, WITH ONGOING IVF:D51/2 NS AT 50CC/HR. CONDOM CATH IN PLACE AND DRAINING WELL VIA GRAVITY TO YELLOW URINE. SAFETY MEASURES OBSERVED AND MAINTAINED. HOB KEPT ELEVATED. BED IN LOWEST AND LOCKED POSITION, CALL LIGHT WITHIN EASY REACH, SIDE RAILS UP X3. WILL CONTINUE TO MONITOR AND ANTICIPATE NEEDS
[2019-02-26 08:00] VITALS: BP 129/58
[2019-02-26] MEDS: CARVEDILOL 6.25 MG TABLET GT SCH ×2 (09:04→21:00)
[2019-02-26] MEDS: FERROUS SULFATE UDC 300 MG/5 ML UDC GT SCH (09:04)
[2019-02-26] MEDS: LACTOBACILLUS RHAMNOSUS GG 1 EACH CAP.SPRINK GT SCH ×2 (09:04→17:35)
[2019-02-26] MEDS: CHLORHEXIDINE GLUCONATE 15 ML UDC MM SCH ×2 (09:04→17:35)
[2019-02-26] MEDS: LEVETIRACETAM SOL (5 ML) 100 MG/ML UDC GT SCH ×2 (09:04→21:00)
[2019-02-26] MEDS ORDERED: Magnesium 1GM/D5W 100ML PREMIX 100 ML IV SCH (10:00)
[2019-02-26] MEDS: GLUCERNA 1.2 1,000 ML BOTTLE NG PRN (11:40)
[2019-02-26] MEDS: IV D5/0.45 NACL 1,000 ML IV PRN (11:42)
[2019-02-26 12:00] VITALS: BP 101/62
[2019-02-26 16:00] VITALS: BP_SYST 104; BP_SYST 107; BP_DIAS 60; BP_DIAS 63
[2019-02-26] MEDS: PANTOPRAZOLE 40 MG VIAL IV SCH (17:35)
--- NOTE | 2019-02-26 19:31 | NUR ---
RN NOTES ENDORSED FOR CONTINUITY OF CARE. NOT ON ANY FORM OF DISTRESS. NO INDICATION OF PAIN NOTED AT THIS TIME. NO ACUTE CHANGES NOTED WITHIN THE SHIFT. ALL NURSING NEEDS ATTENDED AND MET. HOB KEPT ELEVATED. SAFETY MEASURES IN PLACE AT ALL TIMES. ISOLATION KEPT IMPLEMENTED AT ALL TIMES. CALL LIGHT WITHIN REACH
--- NOTE | 2019-02-26 19:36 | NUR ---
RT NOTES: PT RECEIVED TRACHED ON [facility] VENT ON CHARTED SETTINGS. NO SIGNS OF REP DISTRESS/SOB NOTED AT THIS TIME. AIRWAY PATENT AND SECURED. GASKET NOTCHER DONE. PT SUCTIONED. ALARMS SET AND AUDIBLE. AMBUBABG AT BEDSIDE. VENT CONNECTED TO RED OUTLET. WILL CONT TO MONITOR. Addendum: 02/26/19 at 2101 by JAYLEN CABRAL RT Amended: Links added.
[2019-02-26 20:00] VITALS: BP 108/64
[2019-02-26] MEDS: ATORVASTATIN 40 MG TABLET GT SCH (22:06)
[2019-02-27] VITALS: BP 109/56
[2019-02-27 04:00] VITALS: BP 123/64
[2019-02-27] MEDS: BLOOD SUGAR DIAGNOSTIC 1 EACH STRIP IN SCH ×4 (06:00→18:18)
--- NOTE | 2019-02-27 07:20 | NUR ---
RN INITIAL NOTE PATIENT IN BED, OBTUNDED. ON VENT, 100%. ON TELE MONITOR, SR. HAS A CONDOM CATH WITH CLEAR AND YELLOW URINE. HAS GT PLACED ON 02/22. PER NOC SHIFT, GT STARTED TO CLOG AND COULD NOT UNCLOG IT. WILL TRY TO UNCLOG GT ANURADHA. FEEDING WAS HELD. PATIENT HAS LEFT UA MIDLINE WITH D5 HALF NS RUNNING AT 50 ML/HR. BED LOCKED AND IN LOWEST POSITION. WILL CONTINUE TO MONITOR
[2019-02-27 07:36] LABS: BASOPHILS # (AUTO) 0.1 /CMM (0.0-0.2); BASOPHILS % (AUTO) 0.8 % (0.0-2.0); HEMATOCRIT 27 % (39-51); HEMOGLOBIN 8.9 g/dL (13.5-17.5); LYMPHOCYTES % (AUTO) 11.3 % (20.0-44.0); MEAN CORPUSCULAR HGB CONC 33 g/dl (31.0-36.0); MEAN CORPUSCULAR VOLUME 92 fL (80-96); MONOCYTES # (AUTO) 1.9 /CMM (0.1-1.30); MONOCYTES % (AUTO) 21.8 % (2.0-12.0); NEUTROPHILS # (AUTO) 5.7 /CMM (1.8-8.9); NEUTROPHILS % (AUTO) 65.1 % (43.0-81.0); PLATELET COUNT (AUTO) 337 /CMM (150-450); RED BLOOD CELL COUNT(AUTO) 2.98 MIL/uL (4.5-6.0); WHITE BLOOD COUNT (AUTO) 8.8 K/uL (4.3-11.0)
[2019-02-27 08:00] VITALS: BP 113/50
[2019-02-27 08:18] LABS: CALCIUM, SERUM 8.8 mg/dL (8.5-10.1); CREATININE 1.7 mg/dL (0.6-1.3); MAGNESIUM 1.9 mg/dL (1.8-2.4); PHOSPHORUS 3.1 mg/dL (2.5-4.9); POTASSIUM 4.3 mmol/L (3.5-5.1)
[2019-02-27] MEDS: CHLORHEXIDINE GLUCONATE 15 ML UDC MM SCH ×2 (08:25→16:17)
[2019-02-27] MEDS: FERROUS SULFATE UDC 300 MG/5 ML UDC GT SCH (08:25)
[2019-02-27] MEDS: LEVETIRACETAM SOL (5 ML) 100 MG/ML UDC GT SCH (08:25)
[2019-02-27] MEDS: CARVEDILOL 6.25 MG TABLET GT SCH (08:26)
[2019-02-27] MEDS: LACTOBACILLUS RHAMNOSUS GG 1 EACH CAP.SPRINK GT SCH ×2 (08:26→17:00)
--- NOTE | 2019-02-27 10:27 | NUR ---
RT NOTE RECEIVED PT MECHANICALLY VENTILATED VIA CUFFED TRACHEOSTOMY TUBE. CUFF INFLATED. TRACH TUBE MIDLINE AND SECURE. VENTILATOR SETTINGS PRESCRIBED. ALARMS SET PER PROTOCOL AND AUDIBLE. VENT PLUGGED IN TO RED OUTLET. AMBU BAG AT BED SIDE. NO DISTRESS NOTED AT MOMENT. Addendum: 02/27/19 at 1028 by ANDREAS SALAMANCA RT Amended: Links added.
[2019-02-27] MEDS ORDERED: PHEN125O3 GT (10:38)
--- NOTE | 2019-02-27 10:41 | NUR ---
RN NOTE TRIED DECLOGGING PATIENT GT SITE, NOT SUCCESSFUL. PAGED FELIX LOPEZ DANDY TENDER, WAITING FOR A CALL BACK
[2019-02-27] MEDS ORDERED: HEPA500039 IJ (10:46)
--- NOTE | 2019-02-27 11:02 | NUR ---
RN NOTE PER FELIX TRAFFIC WORKER, CONTINUE FEEDING THROUGH JTUBE. DR ARMIJO ORDERED A DC BACK TO SNF. AWARE THAT PATIENT'S GT IS CLOGGED.
[2019-02-27] MEDS ORDERED: GLUCERNA 1.2 1,000 ML BOTTLE NG PRN (11:30)
[2019-02-27 12:00] VITALS: BP 121/57
[2019-02-27 16:00] VITALS: BP 123/67
[2019-02-27] MEDS: PANTOPRAZOLE 40 MG VIAL IV SCH (16:17)
--- NOTE | 2019-02-27 17:24 | NUR ---
RN NOTE REPORT GIVEN TO JOEL LEDEZMA AT [facility]. FAMILY AWARE ABOUT THE DC WELL
--- NOTE | 2019-02-27 17:28 | NUR ---
RN NOTE CULTURELLE NOT GIVEN, PER PHARMACY IT IS OUT OF STOCK
--- NOTE | 2019-02-27 18:48 | NUR ---
DIGITAL ACCOUNT MANAGER NOTE PATIENT GOT PICKED UP BY AMBULANCE. VSS. IV SITE AND ID BANDS REMOVED. CONDOM CATH REMOVED WITH 850 ML OUTPUT. GJ TUBE FLUSHING WELL. NO SIGNS OF ANY DISCOMFORT AT THIS TIME. ON VENT, SATING WELL AT 100%. PATIENT AFEBRILE. EXIT CARE WAS GIVEN TO AMBULANCE PERSONNEL. REPORT GIVEN TO DARIEN MALDONADO AT SNF. FAMILY AWARE. BELONGINGS LIST SIGNED. PICTURES TAKEN FROM NOC SHIFT LAST NIGHT
== END 2019-02-27 18:45 | DRG 130 ==
LOC: ER 23:52 → TELE1 02-17 02:06 → TELE-TD 02-17 03:58 → TELE1 02-18 09:57
PROVIDERS: ADMIT Internal Medicine; ATTEND Internal Medicine
PROC: 30233N1 Transfusion of Nonautologous Red Blood Cells into Peripheral Vein, Percutaneous Approach (ICD-10-PCS; principal; 2019-02-17)
PROC: 5A1955Z Respiratory Ventilation, Greater than 96 Consecutive Hours (ICD-10-PCS; principal; 2019-02-17)
PROC: 05HC33Z Insertion of Infusion Device into Left Basilic Vein, Percutaneous Approach (ICD-10-PCS; 2019-02-20)
PROC: 0DHA3UZ Insertion of Feeding Device into Jejunum, Percutaneous Approach (ICD-10-PCS; 2019-02-22)
DX: J95.851 Ventilator associated pneumonia (principal); G92 Toxic encephalopathy; G93.1 Anoxic brain damage, not elsewhere classified; N17.9 Acute kidney failure, unspecified; N18.4 Chronic kidney disease, stage 4 (severe); K22.2 Esophageal obstruction; K31.84 Gastroparesis; R53.2 Functional quadriplegia; Z99.11 Dependence on respirator [ventilator] status; J96.11 Chronic respiratory failure with hypoxia; E11.43 Type 2 diabetes mellitus with diabetic autonomic (poly)neuropathy; K94.13 Enterostomy malfunction; E11.22 Type 2 diabetes mellitus with diabetic chronic kidney disease; N39.0 Urinary tract infection, site not specified; I12.9 Hypertensive chronic kidney disease with stage 1 through stage 4 chronic kidney disease, or unspecified chronic kidney disease; T42.0X5A Adverse effect of hydantoin derivatives, initial encounter; R13.10 Dysphagia, unspecified; E03.9 Hypothyroidism, unspecified; E11.621 Type 2 diabetes mellitus with foot ulcer; F09 Unspecified mental disorder due to known physiological condition; I70.0 Atherosclerosis of aorta; K21.9 Gastro-esophageal reflux disease without esophagitis; L97.509 Non-pressure chronic ulcer of other part of unspecified foot with unspecified severity; Z79.899 Other long term (current) drug therapy; Z79.01 Long term (current) use of anticoagulants; Z86.718 Personal history of other venous thrombosis and embolism; Z87.19 Personal history of other diseases of the digestive system; Z87.891 Personal history of nicotine dependence; Z91.5 Personal history of self-harm; Z79.82 Long term (current) use of aspirin; Y92.129 Unspecified place in nursing home as the place of occurrence of the external cause; G40.909 Epilepsy, unspecified, not intractable, without status epilepticus; F31.9 Bipolar disorder, unspecified; Y84.8 Other medical procedures as the cause of abnormal reaction of the patient, or of later complication, without mention of misadventure at the time of the procedure; Y73.8 Miscellaneous gastroenterology and urology devices associated with adverse incidents, not elsewhere classified
CPT/HCPCS: 31720; 36415; 36600; 71045-TC; 74018; 80048-TC; 80053-TC; 80076-TC; 80185-TC; 80202-TC; 81000-TC; 82570-TC; 82803-TC; 82962-TC; 83605-TC; 83735-TC; 83880; 84100-TC; 84155-TC; 84300-TC; 84484-TC; 85025-TC; 85730-TC; 86850-TC; 86921-TC; 87040-TC; 87070-TC; 87081-TC; 87086-TC; 87186-TC; 94002-TC; 94003-TC; 94640-TC; 94760-TC; 94762-TC; 94799-TC; A4216; A4349; A4623; A6253; A6403; A7526; C9113; G0378; J0692; J0696; J1165; J1815; J1953; J2704; J3370; J3475; J3480; J3490; J7030; J7050; J7060; J7070; P9016-BL

== ENCOUNTER 2019-04-18 17:14 | Inpatient (IN) | payer MEDICAID ==
[~2019-04-18] VITALS: Ht 180.3 cm; Wt 79.8 kg
[~2019-04-18 17:14] MED LIST changes: -APIX2.5T GT; +CARV6.252 GT; -DEXT15DR6 OP; +FERR300L GT; -FERR325T23 GT; +HEPA500039 IJ; -MUPI22OI7; +PHEN125O3 GT; -PHEN50TA GT; +POLY15DR40 EACHEYE
--- NOTE | 2019-04-18 17:40 | NUR ---
dorina from [facility], sent by PMD due to abnormal lab hgb/hct 6.4/20.1. PATIENT OBTUNDED, KEPT COMFORTABLE, NOTED WITH VOMITING SECRETIONS ON THE PILLOW, ATTACHED TO THE LINE PAINTING MACHINE OPERATOR. NO DISTRESS NOTED. IV LINE ESTABLISHED.
[2019-04-18 17:57] LABS: BASOPHILS # (AUTO) 0.1 /CMM (0.0-0.2); BASOPHILS % (AUTO) 0.6 % (0.0-2.0); EOSINOPHILS % (AUTO) 2.2 % (0.0-6.0); LYMPHOCYTES # (AUTO) 1.1 /CMM (0.8-4.8); LYMPHOCYTES % (AUTO) 12.5 % (20.0-44.0); MEAN CORPUSCULAR HGB CONC 32 g/dl (31.0-36.0); MEAN CORPUSCULAR VOLUME 100 fL (80-96); MONOCYTES % (AUTO) 11.3 % (2.0-12.0); NEUTROPHILS # (AUTO) 6.5 /CMM (1.8-8.9); NEUTROPHILS % (AUTO) 73.4 % (43.0-81.0); PLATELET COUNT (AUTO) 343 /CMM (150-450); RED BLOOD CELL COUNT(AUTO) 1.98 MIL/uL (4.5-6.0); WHITE BLOOD COUNT (AUTO) 8.9 K/uL (4.3-11.0)
[2019-04-18 17:58] LABS: HEMATOCRIT 20 % (39-51); HEMOGLOBIN 6.4 g/dL (13.5-17.5)
--- NOTE | 2019-04-18 17:58 | NUR ---
HGB 6.4 AND 20 HCT
--- NOTE | 2019-04-18 18:06 | NUR ---
RT RECD PT FOR LOW HEMOGLOBIN TRACHED INTACT AND SECURED ON MECH VENT DIEGO SETTING HE CAME WITH VENT PLUGGED ON RED OUTLET BAG AND MASK AT HOB SX THICK YELLOW MODERATE AMOUNT OD SECRETIONS NO RESP DISTRESS WILL CONT TO MONITOR Addendum: 04/18/19 at 1808 by EMILIA CAMERON RT Amended: Links added.
[2019-04-18 18:12] LABS: ALANINE AMINOTRANSFERASE 15 U/L (12-78); ALBUMIN 2.8 g/dL (3.4-5.0); ALKALINE PHOSPHATASE 113 U/L (46-116); ASPARTATE AMINOTRANSFERASE 28 U/L (15-37); BILIRUBIN,TOTAL 0.2 mg/dL (0.2-1.0); CALCIUM, SERUM 9.6 mg/dL (8.5-10.1); CARBON DIOXIDE 27 mmol/L (21-32); CHLORIDE 104 mmol/L (98-107); GLUCOSE 111 mg/dL (74-106); POTASSIUM 4.7 mmol/L (3.5-5.1); SODIUM SERUM 141 mmol/L (136-145); TOTAL PROTEIN, SERUM 8.7 g/dL (6.4-8.2); UREA NITROGEN, BLOOD 70 mg/dL (7-18)
--- NOTE | 2019-04-18 18:15 | NUR ---
TURNED IN MOVE SHEET TO ADMITTING
--- NOTE | 2019-04-18 18:37 | NUR ---
RECEIVED BLOOD CONSENT FROM CLYDE MONTGOMERY (BROTHER).
[2019-04-18 18:47] LABS: BAND % (MANUAL) 10 % (0.0-5.0); LYMPHOCYTES % (MANUAL) 15 % (16-48); MONOCYTES % (MANUAL) 12 % (0-11.0); NEUTROPHILS % (MANUAL) 63 (42-76)
--- NOTE | 2019-04-18 19:10 | NUR ---
LRBC 1 UNIT STARTED AT 100ML/HR ON RIGHT AC G18, VITALS STABLE. T98.7 P78 R 20 BP 103/58.
--- NOTE | 2019-04-18 19:25 | NUR ---
PATIENT HAD NO ADVERSE REACTION FROM BLOOD TRANSFUSION, VITALS STABLE. T98.5 P79 R20 BP 113/69. PATIENT IN STABLE CONDITION. Addendum: 04/18/19 at 1934 by ROALCANCES ADDENDUM: NO PULMONARY CONGESTION, NO SOB NOTED. PATIENTS TOLERATING CURRENT VENT SETTINGS.
[2019-04-18] MEDS ORDERED: CEFTRIAXONE 1GM BAG (ER ONLY) 50 ML IV ONE (19:27)
[2019-04-18] MEDS ORDERED: CEFTRIAXONE 1 G in IV D5W 50 ML IV ONE (19:30)
--- NOTE | 2019-04-18 19:32 | NUR ---
ENDORSED TO ED RN.
--- NOTE | 2019-04-18 19:38 | NUR ---
ATTEMPTED TO INSERT ANOTHER PERIPHERAL IV LINE, UNSUCCESSFUL. BLOOD TRANSFUSION IS ONGOING, WILL WAIT FOR BLOOD TRANSFUSION TO FINISH BEFORE GIVING ROCEPHIN.
--- NOTE | 2019-04-18 20:01 | NUR ---
ER MD SPOKE TO DR. GERMAN REGARDING PT ADMISSION WITH ADMISSION ORDERS RECEIVED. PENDING HOSPITAL ADMISSION.
--- NOTE | 2019-04-18 20:20 | NUR ---
BED ASSIGNMENT TELE 326-1
--- NOTE | 2019-04-18 20:55 | NUR ---
BLOOD TRANSFUSION FINISHED. NO ADVERSE REACTION NOTED DURING TRANSFUSION. PT TOLERATED TRANSFUSION WELL.
--- NOTE | 2019-04-18 20:59 | NUR ---
REPORT GIVEN TO MAT MALDONADO
--- NOTE | 2019-04-18 21:31 | NUR ---
PER DR. GERMAN, PT WILL UPGRADE TO ICU. CONTACTED NURSING SUP FOR BED ASSIGNMENT
--- NOTE | 2019-04-18 21:34 | NUR ---
BED ASSIGNMENT 259
[2019-04-18 21:36] LABS: BASOPHILS % (AUTO) 0.4 % (0.0-2.0); EOSINOPHILS % (AUTO) 1.7 % (0.0-6.0); HEMATOCRIT 25 % (39-51); HEMOGLOBIN 7.8 g/dL (13.5-17.5); LYMPHOCYTES # (AUTO) 1.5 /CMM (0.8-4.8); LYMPHOCYTES % (AUTO) 12.8 % (20.0-44.0); MEAN CORPUSCULAR HGB CONC 32 g/dl (31.0-36.0); MEAN CORPUSCULAR VOLUME 98 fL (80-96); MONOCYTES # (AUTO) 1.9 /CMM (0.1-1.30); MONOCYTES % (AUTO) 16.7 % (2.0-12.0); NEUTROPHILS # (AUTO) 7.9 /CMM (1.8-8.9); NEUTROPHILS % (AUTO) 68.4 % (43.0-81.0); PLATELET COUNT (AUTO) 304 /CMM (150-450); RED BLOOD CELL COUNT(AUTO) 2.53 MIL/uL (4.5-6.0); WHITE BLOOD COUNT (AUTO) 11.5 K/uL (4.3-11.0)
--- NOTE | 2019-04-18 21:43 | NUR ---
ATTEMPTED TO CONTACT DR. SUMMERS (GI HEAD SUGAR REPROCESS OPERATOR) FOR CONSULT. LEFT MESSAGE TO RETURN CALL
--- NOTE | 2019-04-18 21:57 | NUR ---
REPORT CALLED TO HYDRO STATION OPERATORJOEL MCNEAL. WILL TRANSPORT PT VIA ACLS PROTOCOL.
[2019-04-18 22:17] VITALS: BP 108/62
[2019-04-18] MEDS ORDERED: DEXTROSE 50%-WATER 50 ML DISP.SYRIN IV PRN (22:30)
[2019-04-18] MEDS ORDERED: PANTOPRAZOLE 40 MG VIAL IV ONE (22:30)
--- NOTE | 2019-04-18 22:30 | NUR ---
RADIO PERFORMER RCD PT FROM ER W/DX GI BLEED; PT IS ALERT DOES NOT FOLLOW COMMANDS BUT IS RESISTANT TO SOME CARE. NSR ON MONITOR. RAMON CATH INSERTED WITH CLOUDY URINE W/SMALL BLACK ROUND SEDIMENT. PT NPO AT THIS TIME. D5 1/2 NS @ 75 ML/HR AND PROTONIX 8 MG/HR TO BE ADMINISTERED. WOUND/ CALLOUS NOTED TO RIGHT HEEL; WOUND CARE CONSULT REQUESTED. PT TO RECEIVE ONE MORE UNIT OF PRBC WITH HH POST ONE HOUR TRANSFUSION. RCD CONSENT FOR PICC LINE. UNABLE TO ESTABLISH SECOND IV AT THIS TIME TIME. CONTINUE TO MONITOR.
[2019-04-18] MEDS: IV D5/0.45 NACL 1,000 ML IV PRN (22:35)
[2019-04-18] MEDS: PANTOPRAZOLE 80 MG in IV NS 0.9% 500 ML IV PRN (22:46)
[2019-04-18 23:00] VITALS: BP 80/48
[2019-04-18 23:43] VITALS: BP 93/50
[2019-04-18 23:58] VITALS: BP 90/49
[2019-04-19] VITALS (29 sets, daily range): BP systolic 87–128; BP diastolic 43–73
[2019-04-19] MEDS ORDERED: DEXTROSE 50%-WATER 50 ML DISP.SYRIN IV PRN
[2019-04-19] MEDS ORDERED: INSULIN REGULAR, HUMAN 100 UNIT/ML 3 ML VIAL SQ PRN
[2019-04-19] MEDS: BLOOD SUGAR DIAGNOSTIC 1 EACH STRIP IN SCH ×4 (00:55→18:01)
[2019-04-19 01:28] LABS: BLOOD, URINE 3+ Ery/uL (NEGATIVE); PH,URINE 6.5 (5.0-8.0); PROTEIN,URINE 2+ mg/dl (NEGATIVE)
[2019-04-19 01:29] LABS: APPEARANCE,URINE TURBID (CLEAR); BILIRUBIN,URINE NEGATIVE (NEGATIVE); COLOR,URINE Light yellow (YELLOW); KETONES,URINE NEGATIVE (NEGATIVE); LEUKOCYTE ESTERASE ,URINE NEGATIVE (NEGATIVE); NITRITE, URINE NEGATIVE (NEGATIVE); UGLUCOSE NEGATIVE (NEGATIVE); UROBILINOGEN,URINE 0.2 EU/dL (0.2)
[2019-04-19 01:30] LABS: BACTERIA,URINE Moderate /HPF (None Seen); SQUAMOUS EPITHELIAL CELL,UR Rare /HPF (None Seen)
[2019-04-19 01:32] LABS: WBC,URINE TOO NUMEROUS TO COUN /HPF (0-3)
--- NOTE | 2019-04-19 02:15 | NUR ---
GUIDE FOREIGN TOUR SECOND UNIT PRBC INFUSED. NO IMMEDIATE S/O REACTIONS. HH ORDERED FOR 0315/ CONTINUE TO MONITOR.
--- NOTE | 2019-04-19 02:30 | NUR ---
BOOT TURNER NOTE PATIENT REPORT GIVEN BY FREDIS MALDONADO. PATIENT RECEIVED IN BED EYES OPEN, CONTRACTED AT NECK AND UPPER EXTREMITIES. PATIENT RESPONDS TO LIGHT PAIN, BUT APPEARS TO HAVE NO PURPOSEFUL EYE MOVEMENT. PATIENT CONNECTED TO LOW INTERMITTENT SUCTION ON HIS G/J TUBE. 375 ML OF DARK RED/COFFEE COLORED DRAINAGE NOTED AT THIS TIME. PATIENT RAC RUNNING NS 75 ML/HR AND PROTONIX DRIP AT 50 ML/HR. PATIENT SUCTIONED ORAL, MODERATE AMOUNTS OF RED MUCOUS NOTED. PATIENT REPOSITIONED. PATIENT ON RX VENT SETTINGS TOLERATING WELL. BREATHING EVEN AND UNLABORED. RN WILL CONTINUE TO MONITOR FOR CHANGES. RAMON DRAINING TO GRAVITY SLIGHTY CLOUDY URINE WITH WHITE SEDIMENTS NOTED. SAFETY PRECAUTIONS IN PLACE, ASPIRATION PRECAUTIONS IN PLACE, SIDE RAILS UPS X 3.
[2019-04-19 03:24] LABS: BASOPHILS % (AUTO) 0.5 % (0.0-2.0); EOSINOPHILS % (AUTO) 2.3 % (0.0-6.0); HEMATOCRIT 26 % (39-51); HEMOGLOBIN 8.6 g/dL (13.5-17.5); LYMPHOCYTES # (AUTO) 1.1 /CMM (0.8-4.8); LYMPHOCYTES % (AUTO) 15.4 % (20.0-44.0); MEAN CORPUSCULAR HGB CONC 33 g/dl (31.0-36.0); MEAN CORPUSCULAR VOLUME 92 fL (80-96); MONOCYTES % (AUTO) 14.1 % (2.0-12.0); NEUTROPHILS # (AUTO) 4.9 /CMM (1.8-8.9); NEUTROPHILS % (AUTO) 67.7 % (43.0-81.0); PLATELET COUNT (AUTO) 287 /CMM (150-450); WHITE BLOOD COUNT (AUTO) 7.2 K/uL (4.3-11.0)
[2019-04-19 03:33] LABS: CALCIUM, SERUM 8.9 mg/dL (8.5-10.1); POTASSIUM 3.7 mmol/L (3.5-5.1)
--- NOTE | 2019-04-19 07:20 | NUR ---
RN NOTES PATIENT RECEIVED IN BED, RESPIRATIONS EVEN AND UNLABORED ON MECHANICAL VENTILATION. PATIENT TO LIS SUCTION OF G TUBE DUE TO GI BLEED DARK BROWN OUTPUT NOTED WILL CONTINUE TO MONITOR. RAMON CATHETER IN PLACE AND PATENT. IV ACCESS PATENT AND INTACT, TO HAVE PICC LINE INSERTION WILL CONTINUE TO MONITOR
[2019-04-19] MEDS ORDERED: BLOOD SUGAR DIAGNOSTIC 1 EACH STRIP IN SCH (07:30)
--- NOTE | 2019-04-19 07:48 | NUR ---
WOUND CARE CONSULT: PT PRESENTS WITH RT HEEL INTACT DEEP TISSUE INJURY PRESENT ON ADMISSION. PT IS ON OSCAR ISOFLEX LOW AIRLOSS BED. ALL WOUND CARE AND SKIN PROTECTION RECOMMENDATIONS DISCUSSED WITH NURSING STAFF. YENNY MURO NOTED. WILL SEE PRN. MALLORY IN AGREEMENT WITH PLAN OF CARE. Addendum: 04/19/19 at 0750 by MANISHA HOLLAND WNDNU Amended: Links added.
[2019-04-19] MEDS ORDERED: Z GUARD REMEDY 2 OZ OINT TP PRN (08:00)
[2019-04-19] MEDS: PANTOPRAZOLE 80 MG in IV NS 0.9% 500 ML IV PRN ×2 (08:26→18:30)
--- NOTE | 2019-04-19 10:00 | NUR ---
RN NOTES CALLED DR. SUMMERS LEFT MESSAGE FOR CONSULT
[2019-04-19 11:01] LABS: HEMOGLOBIN 7.8 g/dL (13.5-17.5)
[2019-04-19] MEDS: Z GUARD REMEDY 2 OZ OINT TP SCH (11:55)
[2019-04-19] MEDS: INSULIN REGULAR, HUMAN 100 UNIT/ML 3 ML VIAL SQ PRN ×2 (12:02→18:01)
[2019-04-19] MEDS: IV D5/0.45 NACL 1,000 ML IV PRN (14:16)
--- NOTE | 2019-04-19 16:00 | NUR ---
RN NOTES MULTIPLE COLLABORATIONS WITH DR. ORTIZ AND DR SUMMERS PATIENT TO BE SEEN UNTIL WEDNESDAY PER DR SUMMERS, DR ORTIZ AWARE .PER DR ORTIZ TO CONTINUE PROTONIX DRIP AND CONTINUE TO MONITOR
--- NOTE | 2019-04-19 16:00 | NUR ---
RN NOTES PICC LINE RN IN UNIT
[2019-04-19 16:18] LABS: HEMOGLOBIN 7.8 g/dL (13.5-17.5)
--- NOTE | 2019-04-19 19:20 | NUR ---
PUFF IRONER NOTE PATIENT REPORT GIVEN BEDSIDE. PATIENT IN BED A/O X 1 NON VERBAL CONTRACTED AT THE NECK AND UPPER EXTREMITIES. PATIENT OPENS EYES TO LIGHT PAIN. PATIENT HAS PICC IN ROMAN PATENT AND INTACT NO S/S OF INFECTION OR INFILTRATION. PATIENT STILL HAS RAC 20 G SL. PATIENT ON VENT TOLERATING SETTINGS NO S/S OF ACUTE DISTRESS. PATIENTS LAST HGB WAS 7.8, RN AWARE H/H WILL BE DONE AT 2200. PATIENT RAMON DRAINING TO GRAVITY WITH SLIGHTLY CLOUDY URINE AND WHITE SEDIMENTS NOTED. PATIENT NOTED TO HAVE DARK REDDISH DARK BROWN DRAINAGE FROM GTUBE TO LOW INTERMITTENT SUCTION. PATIENT HEELS OFFLOADED AND PATIENT REPOSITIONED. RN WILL CONTINUE TO MONITOR FOR CHANGES, SAFETY PRECAUTIONS IN PLACE.
--- NOTE | 2019-04-19 19:40 | NUR ---
RN NOTES PATIENT IN BED, RESPIRATIONS EVEN AND UNLABORED ON MECHANICAL VENTILATION. PATIENT TO LIS SUCTION OF G TUBE DUE TO GI BLEED DARK BROWN OUTPUT NOTED WILL CONTINUE TO MONITOR. RAMON CATHETER IN PLACE AND PATENT. IV ACCESS PATENT AND INTACT, PICC LINE INSERTED TODAY LEFT UPPER EXTREMITY. SAFETY MEASURES IN PLACES ENDORSED TO NEXT SHIFT FOR CONTINUITY OF CARE WILL CONTINUE TO MONITOR
--- NOTE | 2019-04-19 20:10 | NUR ---
COBBLER MCKAY NOTE PATIENT NOTED TO BE SLIGHTLY HYPOTHERMIC WARM BLANKETS PLACED ON PATIENT AND ROOM TEMP INCREASED
[2019-04-19] MEDS ORDERED: PANTOPRAZOLE 40 MG VIAL IV SCH (21:00)
[2019-04-20] VITALS (43 sets, daily range): BP systolic 84–132; BP diastolic 44–69
[2019-04-20] MEDS: BLOOD SUGAR DIAGNOSTIC 1 EACH STRIP IN SCH ×4 (00:11→18:09)
[2019-04-20 02:25] LABS: HEMOGLOBIN 6.9 g/dL (13.5-17.5)
[2019-04-20] MEDS: IV D5/0.45 NACL 1,000 ML IV PRN (02:42)
--- NOTE | 2019-04-20 03:12 | NUR ---
COOPERATIVE EXTENSION AGENT NOTE REPORT CRITICAL LAB RESULT HGB 6.9 TO SHEY LINCOLN. ORDERED 1 UNIT PRBC TO BE GIVEN.
[2019-04-20] MEDS ORDERED: PANTOPRAZOLE 40 MG VIAL ONE (04:20)
[2019-04-20] MEDS: PANTOPRAZOLE 80 MG in IV NS 0.9% 500 ML IV PRN ×2 (04:25→15:06)
[2019-04-20 05:19] LABS: ALBUMIN 2.5 g/dL (3.4-5.0); BILIRUBIN,TOTAL 0.2 mg/dL (0.2-1.0); CALCIUM, SERUM 8.5 mg/dL (8.5-10.1); CREATININE 2.7 mg/dL (0.6-1.3); MAGNESIUM 2.4 mg/dL (1.8-2.4); PHOSPHORUS 3.5 mg/dL (2.5-4.9); POTASSIUM 3.1 mmol/L (3.5-5.1); TOTAL PROTEIN, SERUM 7.4 g/dL (6.4-8.2)
--- NOTE | 2019-04-20 07:20 | NUR ---
[place] OPERATIONS SUPERVISOR NOTE SPOKE TO PHARMACY REGARDING THE CONTINUATION OF THE PROTONIX DRIP DESPITE PHARMACY ORDER TO CHANGE IT IT IVP. RELAYED THE MESSAGE THAT [facility] DR ORTIZ, [facility] WOULD NOT BE ABLE TO VISIT THE PATIENT UNTIL WEDNESDAY, DR ORTIZ CHOOSING TO CONTINUE WITH PROTONIX DRIP.
--- NOTE | 2019-04-20 07:30 | NUR ---
STUDENT FINANCIAL AID MANAGER INITIAL NOTE RECEIVED PATIENT AWAKE, DOES NOT FOLLOW SIMPLE COMMANDS. NON VERBAL, VENT DEPENDENT. NO S/S OF PAIN OR DISCOMFORT. NO RESPIRATORY DISTRESS NOTED. TOLERATING VENT SETTINGS. ON TELE MONITOR SINUS RHYTHM. F/C PATENT AND DRAINING BY GRAVITY. GT IN PLACE ON LIS WITH OUTPUT YELLOW GREEN. HOB ELEVATED. SIDE RAILS UP AND LOCKED. BED KEPT AT LOWEST POSITION. WILL CONTINUE TO MONITOR.
[2019-04-20 08:49] LABS: BASOPHILS % (AUTO) 0.6 % (0.0-2.0); EOSINOPHILS % (AUTO) 2.8 % (0.0-6.0); HEMATOCRIT 23 % (39-51); HEMOGLOBIN 7.4 g/dL (13.5-17.5); LYMPHOCYTES # (AUTO) 0.7 /CMM (0.8-4.8); LYMPHOCYTES % (AUTO) 14.3 % (20.0-44.0); MEAN CORPUSCULAR HGB CONC 32 g/dl (31.0-36.0); MEAN CORPUSCULAR VOLUME 93 fL (80-96); MONOCYTES # (AUTO) 0.6 /CMM (0.1-1.30); MONOCYTES % (AUTO) 12.3 % (2.0-12.0); NEUTROPHILS # (AUTO) 3.7 /CMM (1.8-8.9); PLATELET COUNT (AUTO) 239 /CMM (150-450); RED BLOOD CELL COUNT(AUTO) 2.49 MIL/uL (4.5-6.0); WHITE BLOOD COUNT (AUTO) 5.2 K/uL (4.3-11.0)
[2019-04-20] MEDS ORDERED: Potassium Chloride 10 MEQ in IV D5/0.45 NACL 1,000 ML IV PRN (09:05)
[2019-04-20] MEDS: Z GUARD REMEDY 2 OZ OINT TP SCH (09:40)
--- NOTE | 2019-04-20 10:08 | NUR ---
RECEIVED TELEPHONE ORDER BY DR. SUMMERS WITH PLANS FOR EGD TOMORROW MORNING AT 6AM, NPO MIDNIGHT AND CONSENT FOR PROCEDURE.
--- NOTE | 2019-04-20 10:09 | NUR ---
SERVICE AIDE NOTE 0955: NO BLOOD TRANSFUSION REACTION AFTER 15 MINUTES OF BLOOD TRANSFUSION ADMINISTRATION 1009: SEEN AND EXAMINED BY DR. GONZALEZ WITH VERBAL ORDERS TO CHANGE IVF TO D5NS WITH 10 MEQ POTASSIUM
[2019-04-20] MEDS: Potassium Chloride 10 MEQ in IV D5/ 0.9% NACL 1,000 ML IV PRN (11:48)
[2019-04-20 15:37] LABS: HEMOGLOBIN 9.1 g/dL (13.5-17.5)
[2019-04-20 17:52] LABS: OCCULT BLOOD STOOL POSITIVE (NEGATIVE)
--- NOTE | 2019-04-20 18:44 | NUR ---
DESIGN INTERN CLOSING NOTE PATIENT IN NO RESPIRATORY DISTRESS. SKIN WARM AND DRY TO TOUCH. NO S/S OF PAIN OR DISCOMFORT. HAD ONE EPISODE OF BLACK STOOL, SPECIMEN SENT. GT ON LIS, WITH MINIMAL GREEN YELLOW OUTPUT. F/C PATENT, DRAINING BY GRAVITY. S/P UNIT PRBC, TOLERATED WELL, NO COMPLICATIONS NOTED. KEPT CLEAN AND DRY. FOR PLANNED EGD IN AM. BROTHER CLYDE CONSENTED. ANGELIQUE PICC LINE PATENT AND INTACT, WITH PROTONIX DRIP AND IVF. WITH BLOOD SUGAR NOTED TO BE TRENDING DOWN. WILL MONITOR, MD INFORMED. HOB ELEVATED. SIDE RAILS UP AND LOCKED. BED KEPT AT LOWEST POSITION. WILL ENDORSE CONTINUITY OF CARE TO PM NURSE.
[2019-04-20 22:24] LABS: HEMOGLOBIN 9.5 g/dL (13.5-17.5)
--- NOTE | 2019-04-20 23:24 | NUR ---
PT RCVD CHARLES'D ON MECHANICAL VENT WITH CHARTED SETTINGS. SX DONE. PT TRACH IS PATENT AND SECURE. VENT ALARMS APPEAR TO BE FUNCTIONING PROPERLY. VENT PLUGGED INTO RED OUTLET. AMBU BAG AT BEDSIDE. NO SOB NOTED. Addendum: 04/20/19 at 9865 by HENRRY GOODMAN RT Amended: Links added.
[2019-04-21] VITALS (44 sets, daily range): BP systolic 94–134; BP diastolic 51–77
[2019-04-21] MEDS: BLOOD SUGAR DIAGNOSTIC 1 EACH STRIP IN SCH ×4 (00:01→17:07)
[2019-04-21] MEDS: INSULIN REGULAR, HUMAN 100 UNIT/ML 3 ML VIAL SQ PRN ×2 (00:02→06:18)
[2019-04-21] MEDS: Potassium Chloride 10 MEQ in IV D5/ 0.9% NACL 1,000 ML IV PRN (01:06)
[2019-04-21] MEDS: PANTOPRAZOLE 80 MG in IV NS 0.9% 500 ML IV PRN (01:06)
[2019-04-21 04:50] LABS: BASOPHILS % (AUTO) 0.5 % (0.0-2.0); HEMATOCRIT 28 % (39-51); HEMOGLOBIN 9.2 g/dL (13.5-17.5); LYMPHOCYTES # (AUTO) 1.1 /CMM (0.8-4.8); MEAN CORPUSCULAR HGB CONC 33 g/dl (31.0-36.0); MEAN CORPUSCULAR VOLUME 90 fL (80-96); MONOCYTES # (AUTO) 0.7 /CMM (0.1-1.30); MONOCYTES % (AUTO) 12.1 % (2.0-12.0); NEUTROPHILS # (AUTO) 4.1 /CMM (1.8-8.9); NEUTROPHILS % (AUTO) 67.4 % (43.0-81.0); PLATELET COUNT (AUTO) 282 /CMM (150-450); RED BLOOD CELL COUNT(AUTO) 3.08 MIL/uL (4.5-6.0); WHITE BLOOD COUNT (AUTO) 6.2 K/uL (4.3-11.0)
[2019-04-21 04:55] LABS: CALCIUM, SERUM 8.4 mg/dL (8.5-10.1); CREATININE 2.3 mg/dL (0.6-1.3); POTASSIUM 3.2 mmol/L (3.5-5.1)
[2019-04-21] MEDS ORDERED: ANESTHESIA TRAY IN PYXIS 1 EA TRAY MC ONE (06:03)
--- NOTE | 2019-04-21 06:28 | NUR ---
RN NOTES PATIENT IN BED. IN NO APPARENT DISTRESS. BREATHING EVEN AND UNLABORED. VENT SETTING WELL TOLERATED. NO PHYSICAL MANIFESTATION OF PAIN OR DISCOMFORT. NPO. SCHEDULED FOR EGD AT 0600. NOTED WITH BLACK STOOL X 1 AND RAMON CATH DRAINING YELLOW WITH BLOOD TINGED URINE. KEPT CLEAN AND DRY. WILL ENDORSE TO NEXT SHIFT FOR CONTINUITY OF CARE.
[2019-04-21] MEDS ORDERED: GLUCERNA 1.2 1,000 ML BOTTLE GT PRN (07:30)
[2019-04-21] MEDS: Z GUARD REMEDY 2 OZ OINT TP SCH (08:08)
[2019-04-21] MEDS ORDERED: JEVITY 1.2 CAL 1,000 ML BOTTLE GT PRN (08:30)
--- NOTE | 2019-04-21 08:40 | NUR ---
ICU/RN: Spoke with Dr Roy to f/u post-op orders; per MD, stop Protonix drip and start tube feeding.
--- NOTE | 2019-04-21 11:30 | NUR ---
ICU/RN: Bed bath; hygienic care rendered. Tolerated well.
[2019-04-21] MEDS: Potassium Chloride 20 MEQ in IV D5W 1,000 ML IV PRN ×2 (11:48→21:42)
--- NOTE | 2019-04-21 12:40 | NUR ---
ICU/RN: Dr Georges and Dr Mohan trevizo. Updated on pt status, continues to have black tarry stool; urine culture preliminary shows yeast growth. Hold TF per Dr Georges and wait for culture and sensitivity prior to initiation of antifungals. Noted. sorter upholstery parts updated.
--- NOTE | 2019-04-21 15:15 | NUR ---
ICU/RN: Bed bath, wound care rendered. Tolerated well.
[2019-04-21 15:27] LABS: OCCULT BLOOD STOOL POSITIVE (NEGATIVE)
--- NOTE | 2019-04-21 15:42 | NUR ---
RT NOTE RECEIVED PT MECHANICALLY VENTILATED VIA PORTEX 9 CUFFED TRACHEOSTOMY TUBE. CUFF INFLATED. TRACH TUBE MIDLINE AND SECURE. VENTILATOR SETTINGS PRESCRIBED. ALARMS SET PER PROTOCOL AND AUDIBLE. VENT PLUGGED IN TO RED OUTLET. AMBU BAG AND BACK UP TRACH AT BED SIDE. NO DISTRESS NOTED. Addendum: 04/21/19 at 1542 by ANDREAS SALAMANCA RT Amended: Links added.
--- NOTE | 2019-04-21 19:45 | NUR ---
ICU/BANQUET SERVER ON CALL RECEIVED REPORT FROM DAY SHIFT NURSE. SEE FLOWSHEET FOR ASSESSMENT. THERE ARE A FEW SKIN ISSUES THAT ARE ADDRESSED, ALONG WITH THE INTERVENTIONS TO EACH. PT IS NONVERBAL BUT OPENS EYES. PT HAS TRACH, TOLERATING CURRENT VENT SETTINGS WITH SATURATION AT 100%. PT WAS TURNED AND REPOSITIONED FOR COMFORT AND CARE, WILL CONTINUE TO MONITOR THIS PT.
--- NOTE | 2019-04-21 20:47 | NUR ---
PT RCVD CHARLES'D ON MECHANICAL VENT WITH CHARTED SETTINGS. SX DONE. PT TRACH IS PATENT AND SECURE. VENT ALARMS APPEAR TO BE FUNCTIONING PROPERLY. VENT PLUGGED INTO RED OUTLET. AMBU BAG AT BEDSIDE. NO SOB NOTED. Addendum: 04/21/19 at 2047 by HENRRY GOODMAN RT Amended: Links added.
--- NOTE | 2019-04-21 21:55 | NUR ---
ICU/SYSTEM ADMINISTRATION ADVISOR PT WAS TURNED AND REPOSITIONED FOR COMFORT AND CARE. WILL CONTINUE TO MONITOR THIS PT. NO ACUTE DISTRESS SEEN AT THIS TIME.
--- NOTE | 2019-04-21 23:00 | NUR ---
ICU/DIKE SUPERVISOR PT'S H/H WAS DRAWN AND RESULTED BACK 9.11/12 THIS MORNING WAS 9.07/14. PT APPEARS TO BE STABLE. PT TO HAVE AM BLOOD DRAW CBC THAT WILL MONITOR THIS PT'S H/H AGAIN. PT IS S/P EDG FROM 04/21.
[2019-04-21 23:17] LABS: HEMOGLOBIN 9.6 g/dL (13.5-17.5)
[2019-04-22] VITALS (18 sets, daily range): BP systolic 93–130; BP diastolic 49–86
--- NOTE | 2019-04-22 00:30 | NUR ---
ICU/ACQUISITIONS LOGISTICS ANALYST PT'S MIDNIGHT BLOOD SUGAR WAS 96, THERE IS NO COVERAGE FOR THIS PER MD'S ORDERS AND HOSPITAL PROTOCOL. WILL CONTINUE TO MONITOR THIS PT'S BLOOD SUGAR. .
[2019-04-22] MEDS: BLOOD SUGAR DIAGNOSTIC 1 EACH STRIP IN SCH ×4 (00:42→17:21)
--- NOTE | 2019-04-22 02:10 | NUR ---
ICU/BARREL DRILLER PT WAS GIVEN AM CARE, ALONG WITH ORAL CARE, PT TOLERATED THIS WELL. PT REMAINS ON CURRENT VENT SETTINGS, WITH SATURATION AT 100%. PT WAS TURNED AND REPOSITIONED FOR COMFORT AND CARE. NO ACUTE DISTRESS SEEN AT THIS TIME.
--- NOTE | 2019-04-22 04:10 | NUR ---
ICU/TRAVELING PASSENGER AGENT AM LABS WERE DRAWN, AWAIT FOR ANY ABNORMAL RESULTS. PT WAS THEN TURNED AND REPOSTIONED FOR COMFORT AND CARE.
--- NOTE | 2019-04-22 05:00 | NUR ---
ICU/CASE FOLDER PT'S MORNING BLOOD SUGAR WAS 103, THERE IS NO COVERAGE FOR THIS PER MD'S ORDERS AND HOSPITAL PROTOCOL. WILL CONTINUE TO MONITOR THIS PT'S BLOOD SUGAR. .
[2019-04-22 05:25] LABS: BASOPHILS % (AUTO) 0.7 % (0.0-2.0); EOSINOPHILS % (AUTO) 4.3 % (0.0-6.0); HEMATOCRIT 29 % (39-51); HEMOGLOBIN 9.4 g/dL (13.5-17.5); MEAN CORPUSCULAR HGB CONC 32 g/dl (31.0-36.0); MEAN CORPUSCULAR VOLUME 91 fL (80-96); MONOCYTES # (AUTO) 0.8 /CMM (0.1-1.30); MONOCYTES % (AUTO) 11.6 % (2.0-12.0); NEUTROPHILS # (AUTO) 4.6 /CMM (1.8-8.9); NEUTROPHILS % (AUTO) 68.4 % (43.0-81.0); PLATELET COUNT (AUTO) 289 /CMM (150-450); RED BLOOD CELL COUNT(AUTO) 3.21 MIL/uL (4.5-6.0); WHITE BLOOD COUNT (AUTO) 6.7 K/uL (4.3-11.0)
[2019-04-22 05:36] LABS: CALCIUM, SERUM 8.5 mg/dL (8.5-10.1); MAGNESIUM 1.7 mg/dL (1.8-2.4); PHOSPHORUS 2.9 mg/dL (2.5-4.9); POTASSIUM 3.5 mmol/L (3.5-5.1)
--- NOTE | 2019-04-22 06:00 | NUR ---
ICU/NET LEAD DEVELOPER PT WAS TURNED AND REPOSITIONED FOR COMFORT AND CARE. WILL CONTINUE TO MONITOR THIS PT. NO ACUTE DISTRESS SEEN AT THIS TIME.
[2019-04-22] MEDS: Potassium Chloride 20 MEQ in IV D5W 1,000 ML IV PRN ×2 (06:45→18:10)
[2019-04-22] MEDS: Z GUARD REMEDY 2 OZ OINT TP SCH (08:05)
[2019-04-22] MEDS ORDERED: PANTOPRAZOLE 40 MG TABLET.DR PO SCH (11:00)
--- NOTE | 2019-04-22 11:00 | NUR ---
ICU/RN: Dr Georges rounds; updated on pt status, with dark tarry stool x1 noted overnight. Remains NPO. Case dw pt's brother at bedside. New orders noted and carried out.
[2019-04-22] MEDS: PANTOPRAZOLE 40 MG/PACK PACK GT SCH ×2 (11:29→20:57)
[2019-04-22] MEDS ORDERED: Magnesium 1GM/D5W 100ML PREMIX 100 ML IV SCH (12:00)
--- NOTE | 2019-04-22 15:00 | NUR ---
ICU/RN: Bed bath, wound care rendered. Dark stool noted. MD aware. Pt tolerated well. Suctioned orally. HOB elevated.
--- NOTE | 2019-04-22 16:00 | NUR ---
ICU/RN: Pt transferred to [facility] in stable condition accompanied by RT; bedside report given to WOJCIECH Presley. Rx notified regarding pt transfer to [facility]; awaiting delivery of D5W 20 meq KCL IVF.
--- NOTE | 2019-04-22 17:01 | NUR ---
REPORT RECEIVED FROM SOON FRAME OPERATOR. PT SHOWS NO SIGNS OF SOB OR PAIN AT PRESENT MOMENT. WILL CONTINUE TO MONITOR.
--- NOTE | 2019-04-22 18:36 | NUR ---
RN CLOSING NOTES DRAINED PT RAMON 550 MLS. PT APPEARS TO BE RESTING COMFORTABLY. TOLERATING VENT SETTINGS AND NO PAIN OR DISTRESS NOTICIABLE ON VISUAL INSPECTION. PT IS A&OX1. OPENS EYES. WILL ENDORSE LAUREN TO TICKETING CLERK RN.
--- NOTE | 2019-04-22 21:22 | NUR ---
RT PT RECEIVED ON CURRENT SETTINGS. TRACHED PORTEX 9. VENT PLUGGED IN TO RED OUTLET. AMBU BAG AT HEAD OF BED. HOB AT 30 DEGREES. PT IS IN NO APPARENT RESPIRATORY DISTRESS. ALARMS ON AND AUDIBLE. MINIMAL SECRETIONS SUCTIONED. WILL CONTINUE TO MONITOR. Addendum: 04/22/19 at 2123 by BLANKA HORNER RT Amended: Links added.
--- NOTE | 2019-04-22 21:24 | NUR ---
RT PT RECEIVED ON CURRENT SETTINGS. TRACHED PORTEX 8. VENT PLUGGED IN TO RED OUTLET. AMBU BAG AT HEAD OF BED. HOB AT 30 DEGREES. PT IS IN NO APPARENT RESPIRATORY DISTRESS. ALARMS ON AND AUDIBLE. MINIMAL SECRETIONS SUCTIONED. WILL CONTINUE TO MONITOR. Addendum: 04/22/19 at 2125 by BLANKA HORNER RT Amended: Links added.
[2019-04-23] VITALS (7 sets, daily range): BP systolic 117–155; BP diastolic 53–83
[2019-04-23] MEDS: BLOOD SUGAR DIAGNOSTIC 1 EACH STRIP IN SCH ×4 (00:30→18:05)
[2019-04-23] MEDS: Potassium Chloride 20 MEQ in IV D5W 1,000 ML IV PRN (03:49)
--- NOTE | 2019-04-23 07:20 | NUR ---
COMMERCIAL REAL ESTATE ATTORNEY OPENING NOTE: RECEIVED PATIENT IN BED AWAKE AND RESPONSIVE. ON MECHANICAL VENTILATION AND TOLERATING WELL.NO SOB NOTED AND NOT IN ACUTE DISTRESS. WITH GT IN PLACE AND PATENT, FEEDING CURRENTLY HELD FOR FURTHER OBSERVATION OF THE PATIENT. WITH RAMON CATHETER AND DRAINING YELLOW URINE. WITH IV SITE: ROMAN PICC LINE AND INFUSION OF D5W WITH 20 MEQ KCL @ 100CC/HR. SITE PATENT, CLEAN AND DRY. INFUSION BEING TOLERATED WELL. NO PAIN NOTED. CARDIAC MONITORING WITH SINUS RHYTHM NOTED. CALL LIGHT IN REACH, SIDE RAILS UP, LOCKED, LOW AND AT SEMI-BARON'S POSITION. WILL CONTINUE TO MONITOR.
[2019-04-23 07:21] LABS: BASOPHILS % (AUTO) 0.4 % (0.0-2.0); HEMATOCRIT 31 % (39-51); HEMOGLOBIN 10.2 g/dL (13.5-17.5); LYMPHOCYTES # (AUTO) 0.9 /CMM (0.8-4.8); LYMPHOCYTES % (AUTO) 16.5 % (20.0-44.0); MEAN CORPUSCULAR HGB CONC 33 g/dl (31.0-36.0); MEAN CORPUSCULAR VOLUME 89 fL (80-96); MONOCYTES # (AUTO) 0.7 /CMM (0.1-1.30); MONOCYTES % (AUTO) 11.8 % (2.0-12.0); NEUTROPHILS # (AUTO) 3.9 /CMM (1.8-8.9); NEUTROPHILS % (AUTO) 67.3 % (43.0-81.0); PLATELET COUNT (AUTO) 299 /CMM (150-450); RED BLOOD CELL COUNT(AUTO) 3.48 MIL/uL (4.5-6.0); WHITE BLOOD COUNT (AUTO) 5.7 K/uL (4.3-11.0)
[2019-04-23 07:31] LABS: CALCIUM, SERUM 8.8 mg/dL (8.5-10.1); CREATININE 1.9 mg/dL (0.6-1.3); MAGNESIUM 1.8 mg/dL (1.8-2.4); PHOSPHORUS 3.1 mg/dL (2.5-4.9); POTASSIUM 4.2 mmol/L (3.5-5.1)
[2019-04-23] MEDS: PANTOPRAZOLE 40 MG/PACK PACK GT SCH ×2 (09:35→21:36)
[2019-04-23] MEDS: Z GUARD REMEDY 2 OZ OINT TP SCH (09:35)
[2019-04-23] MEDS: IV D5W 1,000 ML IV PRN (10:52)
--- NOTE | 2019-04-23 17:14 | NUR ---
RT NOTE: PATIENT RECEIVED TRACHED ON MECHANICAL VENT. ALARMS VERIFIED AND AUDIBLE. SUCTIONED AND LAVAGED THICK AGUILLON SECRETIONS. AMBU BAG AT [facility].
[2019-04-23] MEDS ORDERED: JEVITY 1.2 CAL 1,000 ML BOTTLE GT PRN ×2 (18:00)
--- NOTE | 2019-04-23 19:25 | NUR ---
EVIDENCE SPECIALIST NOTES RECEIVED PATIENT IN BED AWAKE EYE OPEN. ON MECHANICAL VENTILATION AND TOLERATING WELL.NO SOB NOTED AND NO SIGNS OF ACUTE DISTRESS. WITH GT IN PLACE AND PATENT, FEEDING STARTED AND GOAL SET FOR PATIENT TO TOLERATE. WITH RAMON CATHETER IN PLACE, INTACT AND DRAINING YELLOW URINE OUTPUT. WITH IV SITE ROMAN PICC LINE AND INFUSION OF D5W @ 100CC/HR. SITE PATENT, INTACT, CLEAN AND DRY. INFUSION TOLERATED WELL. NO FACIAL GRIMACING, NO PAIN NOTED. CARDIAC MONITORING WITH SINUS RHYTHM NOTED. CALL LIGHT IN REACH, SIDE RAILS UP, LOCKED, LOW AND AT SEMI-BARON'S POSITION. ALL NEEDS ATTEDED, WILL CONTINUE TO MONITOR ACCORDINGLY.
--- NOTE | 2019-04-23 19:35 | NUR ---
911 OPERATOR CLOSING NOTE: PATIENT IN BED AWAKE. ON MECHANICAL VENTILATION AND TOLERATING WELL.NO SOB NOTED AND NOT IN ACUTE DISTRESS. WITH GT IN PLACE AND PATENT, FEEDING STARTED AND GOAL SET FOR PATIENT TO TOLERATE. WITH RAMON CATHETER AND DRAINING YELLOW URINE. WITH IV SITE: ROMAN PICC LINE AND INFUSION OF D5W @ 100CC/HR. SITE PATENT, CLEAN AND DRY. INFUSION BEING TOLERATED WELL. NO PAIN NOTED. CARDIAC MONITORING WITH SINUS RHYTHM NOTED. CALL LIGHT IN REACH, SIDE RAILS UP, LOCKED, LOW AND AT SEMI-BARON'S POSITION. ENDORSED TO ONCOMING SHIFT FOR LAUREN.
[2019-04-24] VITALS (7 sets, daily range): BP systolic 123–156; BP diastolic 63–81
[2019-04-24] MEDS: BLOOD SUGAR DIAGNOSTIC 1 EACH STRIP IN SCH ×4 (00:41→17:21)
[2019-04-24] MEDS: INSULIN REGULAR, HUMAN 100 UNIT/ML 3 ML VIAL SQ PRN ×3 (00:44→06:07)
[2019-04-24] MEDS: IV D5W 1,000 ML IV PRN (04:16)
--- NOTE | 2019-04-24 05:43 | NUR ---
PATIENT RECEIVED ON TRACH TO VENT WITH SETTINGS OF AC 16, 500 VT, 40%, +5. SUCTIONED FOR MINIMAL, THICK, WHITE SECRETIONS. NO DISTRESS/SOB NOTED. AMBU BAG AT BEDSIDE. VENT AND PULSE OXIMETER ALARMS AUDIBLE AND VISIBLE. VENT PLUGGED INTO RED OUTLET. INNER CANNULA CHANGED. TRACH CARE DONE. Addendum: 04/24/19 at 0544 by WILBER SMYTH RT Amended: Links added.
--- NOTE | 2019-04-24 06:32 | NUR ---
RN NOTES ALL NEEDS ATTENDED AND MET, ABLE TO REST AND SLEPT COMFORTABLY, REPOSITIONED, VENT SETTINGS TOLERATING WELL, IV ACCESS CLEAN DRY PATENT AND INTACT, INFUSING D5W AT 100ML/HR. SAFETY MEASURES INPLACE, SUCTIONED SECRETIONS, ASPIRATION PRECAUTION EMPHASIZED. WILL ENDORSED TO AM NURSE FOR CONTINUITY OF CARE.
[2019-04-24 06:39] LABS: BASOPHILS % (AUTO) 0.5 % (0.0-2.0); HEMATOCRIT 32 % (39-51); HEMOGLOBIN 10.6 g/dL (13.5-17.5); LYMPHOCYTES # (AUTO) 0.7 /CMM (0.8-4.8); LYMPHOCYTES % (AUTO) 13.5 % (20.0-44.0); MEAN CORPUSCULAR HGB CONC 33 g/dl (31.0-36.0); MEAN CORPUSCULAR VOLUME 89 fL (80-96); MONOCYTES # (AUTO) 0.5 /CMM (0.1-1.30); MONOCYTES % (AUTO) 10.1 % (2.0-12.0); NEUTROPHILS # (AUTO) 3.8 /CMM (1.8-8.9); NEUTROPHILS % (AUTO) 71.9 % (43.0-81.0); PLATELET COUNT (AUTO) 294 /CMM (150-450); RED BLOOD CELL COUNT(AUTO) 3.62 MIL/uL (4.5-6.0); WHITE BLOOD COUNT (AUTO) 5.3 K/uL (4.3-11.0)
[2019-04-24 06:59] LABS: CALCIUM, SERUM 8.8 mg/dL (8.5-10.1); CREATININE 1.8 mg/dL (0.6-1.3); MAGNESIUM 1.8 mg/dL (1.8-2.4); PHOSPHORUS 3.3 mg/dL (2.5-4.9); POTASSIUM 3.5 mmol/L (3.5-5.1)
--- NOTE | 2019-04-24 07:22 | NUR ---
RT Pt received trached on mechanical ventilation with noted settings. Pt is awake but does not follow commands. Vent is plugged into red outlet. No SOB or respiratory distress noted. Addendum: 04/24/19 at 0938 by DEANN SHETH RT Amended: Links added.
--- NOTE | 2019-04-24 08:00 | NUR ---
TELE1/RN AM SHIFT INITIAL NOTES RECEIVED PT ASLEEP IN BED, PT OBTUNDED, OPEN EYES SPONTANEOUSLY, NO GRIMACING OR ACUTE CHANGE OF CONDITION OR ACTIVE BLEEDING NOTED NOTED. VENT DEPENDENT WITH SETTING RATES PRESCRIBED, SATURATING @ 100%, RESPIRATIONS EVEN & UNLABORED, LUNG SOUNDS DIMINISHED, SUCTIONED FOR AIRWAY CLEARANCE. IV SITE WITH ON GOING INFUSION OF D5W @ 100CC/HR, SITE PATENT WITH NO S/S OF INFECTION. GT FEEDING ON GOING @ 40CC/HR, NOTED WITH 30CC OF GASTRIC RESIDUAL, FLUSHED PATENT. RAMON CATHETER INTACT WITH YELLOW URINE OUTPUT. PT IS COMFORTABLE, SCHEDULED AM MEDS TO BE GIVEN. CL WITHIN REACHED AND SAFETY MAINTAINED. ON GOING MONITORING.
[2019-04-24] MEDS: PANTOPRAZOLE 40 MG/PACK PACK GT SCH (09:16)
[2019-04-24] MEDS: Z GUARD REMEDY 2 OZ OINT TP SCH (09:17)
--- NOTE | 2019-04-24 14:23 | NUR ---
TELE1/RN REPORT TO SNF REPORT GIVEN TO [facility] ([id number]). ESTIMATED TIME OF PICK-UP 1500. NO CHANGE OF CONDITION.
--- NOTE | 2019-04-24 18:10 | NUR ---
TELE1/GLOBAL HUMAN RESOURCES DIRECTOR - SNF REPORT GIVEN TO TRANSPORT PERSONNEL. DISCHARGE INSTRUCTIONS AND DOCUMENTS GIVEN TO TRANSPORT PERSONNEL, IV SITE REMOVED, PRESSURE DRESSING APPLIED, NO S/S OF INFECTION. PERSONAL INVENTORY LOG SIGNED OFF, ID BANDS REMOVED. PT LEFT TELE1 UNIT IN STABLE CONDITION VIA GURNEY.
== END 2019-04-24 18:10 | DRG 243 ==
LOC: ER 17:16 → TELE 20:23 → ICU 21:35 → TELE-TD 04-22 16:00 → TELE1 04-22 16:22 → TELE-TD 04-22 19:54 → TELE1 04-23 06:36
PROVIDERS: ADMIT Internal Medicine Nephrology; ATTEND Internal Medicine Nephrology
PROC: 0DJ08ZZ Inspection of Upper Intestinal Tract, Via Natural or Artificial Opening Endoscopic (ICD-10-PCS; principal; 2019-04-18)
PROC: 30233N1 Transfusion of Nonautologous Red Blood Cells into Peripheral Vein, Percutaneous Approach (ICD-10-PCS; principal; 2019-04-18)
PROC: B548ZZA Ultrasonography of Superior Vena Cava, Guidance (ICD-10-PCS; principal; 2019-04-18)
PROC: 5A1955Z Respiratory Ventilation, Greater than 96 Consecutive Hours (ICD-10-PCS; principal; 2019-04-18)
PROC: 02HV33Z Insertion of Infusion Device into Superior Vena Cava, Percutaneous Approach (ICD-10-PCS; principal; 2019-04-18)
DX: K21.0 Gastro-esophageal reflux disease with esophagitis (principal); G93.40 Encephalopathy, unspecified; Z99.11 Dependence on respirator [ventilator] status; J96.11 Chronic respiratory failure with hypoxia; N17.9 Acute kidney failure, unspecified; Z93.0 Tracheostomy status; N18.4 Chronic kidney disease, stage 4 (severe); E11.22 Type 2 diabetes mellitus with diabetic chronic kidney disease; R65.10 Systemic inflammatory response syndrome (SIRS) of non-infectious origin without acute organ dysfunction; R13.10 Dysphagia, unspecified; Z93.1 Gastrostomy status; T42.0X5A Adverse effect of hydantoin derivatives, initial encounter; Y92.89 Other specified places as the place of occurrence of the external cause; D72.829 Elevated white blood cell count, unspecified; G40.909 Epilepsy, unspecified, not intractable, without status epilepticus; I10 Essential (primary) hypertension; E78.5 Hyperlipidemia, unspecified; K22.8 Other specified diseases of esophagus; D63.1 Anemia in chronic kidney disease; E03.9 Hypothyroidism, unspecified; E11.621 Type 2 diabetes mellitus with foot ulcer; I12.9 Hypertensive chronic kidney disease with stage 1 through stage 4 chronic kidney disease, or unspecified chronic kidney disease; I25.10 Atherosclerotic heart disease of native coronary artery without angina pectoris; Z79.82 Long term (current) use of aspirin; Z79.899 Other long term (current) drug therapy; E87.6 Hypokalemia; E87.0 Hyperosmolality and hypernatremia; J98.11 Atelectasis; D50.0 Iron deficiency anemia secondary to blood loss (chronic); F31.9 Bipolar disorder, unspecified; T46.0X5A Adverse effect of cardiac-stimulant glycosides and drugs of similar action, initial encounter; Y92.9 Unspecified place or not applicable; L97.509 Non-pressure chronic ulcer of other part of unspecified foot with unspecified severity; K22.2 Esophageal obstruction; N39.0 Urinary tract infection, site not specified; Z87.891 Personal history of nicotine dependence; Z87.19 Personal history of other diseases of the digestive system; Z86.718 Personal history of other venous thrombosis and embolism
CPT/HCPCS: 31720; 36415; 71045-TC; 76770-TC; 80048-TC; 80053-TC; 80076-TC; 80185-TC; 81000-TC; 82272-TC; 82962-TC; 83540-TC; 83735-TC; 84100-TC; 84484-TC; 85025-TC; 85027-TC; 85730-TC; 86850-TC; 86921-TC; 87081-TC; 87086-TC; 93970-TC; 94002-TC; 94003-TC; 94760-TC; 94762-TC; 94799-TC; A4217; A4623; A6253; A7526; C9113; G0378; J0696; J1815; J2704; J3475; J3480; J3490; J7030; J7040; J7042; J7050; J7060; J7070; P9016-BL